=== PATIENT | male | born 1940 | race Caucasian/White ===

== ENCOUNTER 2018-05-01 11:37 | Emergency (ER) | payer MEDICARE, SELFPAY ==
[2018-05-01 11:43] VITALS: BP 187/84; PULSE 63; RESP 16; TEMP 37.1; O2SAT 97; BMI 32.8
--- NOTE | 2018-05-01 12:18 | EKG12_ITS ---
Test Reason : SOB Blood Pressure : / mmHG Vent. Rate : 065 BPM Atrial Rate : 065 BPM P-R Int : 236 ms QRS Dur : 094 ms QT Int : 420 ms P-R-T Axes : 058 -53 053 degrees QTc Int : 436 ms Sinus rhythm with 1st degree A-V block Left anterior fascicular block Abnormal ECG Confirmed by CODY MACHADO, SUKUMAR ([id number]), greeting card editor JAX MOLINA ([id number]) on 05/04/2018 10:16:56 AM Referred By: RADHA Confirmed By:SUKUMAR ROSS MD
--- NOTE | 2018-05-01 12:23 | RAD_ITS ---
STUDY: X-RAY CHEST REASON FOR EXAM: Male, 77 years old. Chest pain. TECHNIQUE: Single AP portable view of the chest. COMPARISON: Comparison is made with prior study dated October 15, 2013. FINDINGS: EKG lead tubes are seen. The lungs are clear and expanded. Scattered calcified granulomas. There is no demonstrated pleural abnormality. Normal size heart. Normal mediastinum and adne. Normal visualized pulmonary arteries. Normal visualized aortic arch and descending thoracic aorta. There are diffuse degenerative changes of the visualized thoracic spine. There is degenerative osteoarthritis of the bilateral shoulders. There is no demonstrated abnormality of the visualized soft tissue structures of the upper abdomen. RAD/Chest 1 View (Portable) IMPRESSION: No acute abnormality is seen. Electronically Signed: Abdulaziz Romero MD at 12:43 EST , Service support ,
[2018-05-01] MEDS: Aspirin 81 MG TAB.CHEW 324 MG PO (12:32)
[2018-05-01 12:41] LABS: Absolute Lymphocyte Count 0.85 X10^3/ul (0.83-4.51); Absolute Neutrophil Count 4.8 X10^3/uL (2.0-7.7); Basophil# 0.07 X10^3/uL; Basophil% 1.1 % (0-1); Eosinophil# 0.08 X10^3/uL; Eosinophils% 1.3 % (0-5); Hematocrit 45.5 % (40-54); Hemoglobin 15.3 g/dl (13.0-16.5); Lymphocyte # 0.85 X10^3/ul (4.0); Lymphocyte % 13.4 % (19-41); Mean Corp Hgb Conc 33.6 g/gl (32-36); Mean Corpuscular Hgb 36.5 pg (27.0-32.0); Mean Corpuscular Volume 108.6 fL (80-94); Mean Platelet Vol. 8.6 fl (6.2-12.0); Monocyte# 0.54 X10^3/uL; Monocyte% 8.5 % (0-10); Neutrophil # 4.78 X10^3/uL (2.7-7.7); Neutrophil % 75.5 % (47-70); POSITIVE COUNT NO; POSITIVE DIFFERENTIAL NO; POSITIVE MORPHOLOGY NO; Platelet Count 639 K/mm3 (150-450); RBC Distribution Width CV 13.6 % (11.6-14.6); RBC Distribution Width SD 53.1 fl (35.1-43.9); Red Blood Count 4.19 M/mm3 (4.6-6.2); White Blood Count 6.3 K/mm3 (4.4-11.0)
[2018-05-01 12:49] VITALS: BP 178/87; PULSE 60; RESP 18; O2SAT 100; O2SAT 99
[2018-05-01 12:59] LABS: Anion Gap 6 (5-15); BUN 22 mg/dL (7-18); BUN/Creat Ratio 21.6 RATIO (10-20); Calcium,Total 8.4 mg/dL (8.5-10.1); Chloride 107 mmol/L (98-107); Creatinine, Serum 1.02 mg/dL (0.70-1.30); EST Glomerular Filtration Rate 75 mL/min (>60); Est Glom Filt Rate - Afr Amer 91 mL/min (>60); Estimated Creatinine Clearance 63.62 ml/min; Glucose 106 mg/dL (74-106); Potassium 4.7 mmol/L (3.5-5.1); Sodium Level 140 mmol/L (136-145)
[2018-05-01 13:20] VITALS: BP 170/92; PULSE 55; RESP 18; O2SAT 97
--- NOTE | 2018-05-01 13:23 | ED.DCSUM_ITS ---
- ER Visit Summary Date of Service: 05/01/18 Chief Complaint: Rapid heart rate History of Present Illness: The patient is a 77 M who presents with a rapid heart rate. He states that this morning he had an episode that lasted about 15- 20 minutes. He took an Excedrin Migraine when he had this. He also drank multiple cups of coffee this morning which is more than usual. He denies any chest pain. No nausea. No dizziness. No history of any history of this. Physical Examination: Vital signs reviewed. HEENT exam unremarkable. Heart is regular rate and rhythm without murmurs. Lungs are clear to auscultation. Abdomen is soft and nontender. Extremities reveal no edema. Peripheral pulses are equal. Skin exam normal. Neurologic exam normal. Test Results: EKG is normal sinus rhythm with rate of 65. Left anterior fascicular block noted. Platelets 639. Troponin 0 0.027 Emergency Department Course and Treatment: The patient had no episodes of any symptoms here. I is unclear as to what these palpitations were. Patient will be discharged to follow-up with his doctor for a possible Holter monitor Treatment Plan: [] Disposition: Discharge Impression: Palpitations, resolved This note was generated with [employer]olution dictation software. It may contain incorrect words, spelling, and punctuation that were not noted in review of the chart pr ior to signing ED Disposition - Plan for ED Patient: Referrals: Sagar Kent III, MD [Primary Care Provider] -
--- NOTE | 2018-05-01 13:23 | ED.DEP ---
ED Disposition - Plan for ED Patient: Disposition: Home or Assisted Living Instructions: ED Palpitations Referrals: Sagar Kent III, MD [Primary Care Provider] -
[2018-05-01 13:31] VITALS: BP 152/87; PULSE 67; RESP 18; O2SAT 99
== END 2018-05-01 13:31 | disposition home or self-care (01) ==
PROVIDERS: Emergency Provider Emergency Medicine; Family Provider Family Medicine; PCP Family Medicine
DX: R00.2 Palpitations (principal); I44.4 Left anterior fascicular block; Z79.01 Long term (current) use of anticoagulants; Z79.899 Other long term (current) drug therapy
CPT/HCPCS: 71045; 80048; 84484; 85025; 93005; 99285

== ENCOUNTER 2019-08-07 08:16 | Emergency (ER) | payer MEDICARE, SELFPAY ==
[2019-08-07 08:19] VITALS: BP 170/84; PULSE 71; RESP 17; TEMP 36.7; O2SAT 96; BMI 32.0
--- NOTE | 2019-08-07 08:33 | CT_ITS ---
STUDY: CT ABDOMEN AND PELVIS WITHOUT CONTRAST REASON FOR EXAM: Male, 79 years old. ABD PAIN, HX KS, BLOOD IN UNDERWEAR THIS AM RADIATION DOSAGE (If Supplied By Facility): CTDIvol = ( 14.54 ) mGy, DLP = ( 713.01 ) mGycm TECHNIQUE: Transaxial images were obtained from the dome of the diaphragm to the symphysis pubis without oral contrast, and without intravenous contrast. Sagittal and coronal images were reconstructed. Individualized dose optimization techniques were used for this CT. COMPARISON: None. FINDINGS: There are bilateral groundglass opacities. The visualized portions of the heart are within normal limits. Normal liver. Normal gallbladder and extrahepatic biliary system. There is enlargement of the spleen at 14 cm Normal pancreas. Normal bilateral adrenal glands. There are calcifications of the right kidney measuring up to 4 mm at the lower pole. There are multiple calcifications of the left kidney measuring up to 5 mm at the mid pole. There is no hydronephrosis. There is a small hiatal hernia. Normal small intestine. Normal colon. The appendix is visualized and appears normal. There is diffuse atherosclerotic calcification of the abdominal aorta, without a demonstrated aneurysm. Normal inferior vena cava. Normal retroperitoneum. Normal urinary bladder. There is mild enlargement of the prostate. There is left inguinal hernia repair. Normal osseous structures. CT/Abdomen/Pelvis without Cont IMPRESSION: Bilateral groundglass opacities. Dedicated CT of the chest is recommended. Bilaterally renal stones. Splenomegaly. Mild prostate enlargement. Previous left inguinal hernia. Electronically Signed: Wally Wilson MD at 10:09 EDT Tel , Service support ,
[2019-08-07] MEDS: 0.9% Normal Saline 1,000 ML 125 ML IV (08:45)
[2019-08-07 08:55] LABS: Bacteria 0 SEEN /hpf (None Seen); Mucous, Urine 0 SEEN /hpf (<or=2+); Squamous Epithelial Cells - UA 0 SEEN /hpf (0-5); White Blood Cells 0 SEEN /hpf (0-5)
[2019-08-07 08:56] LABS: Color, Urine Yellow (Yellow); Glucose, Dipstick Normal (Normal); Ketone-Dipstick Negative (Negative); Leukocyte Esterase-Dipstick Negative /ul (Negative); Nitrite-Dipstick Negative (Negative); Occult Blood-Urine 10 /ul (Negative); Protein-Dipstick 30 mg/dl (Negative); Urine Bilirubin Dipstick Negative (Negative); Urine Clarity Clear (Clear); Urine Urobilinogen 1 mg/dl (Normal)
--- NOTE | 2019-08-07 09:02 | ED.VISSUMM ---
- ER Visit Summary Date of Service: 08/07/19 Chief Complaint: [Abdominal pain] History of Present Illness: The patient is a 79 M [presents the emergency department complaint of abdominal pain that started 3 days ago. Patient has had intermittent discomfort over the last 3 days. This morning he woke up and had some blood in his underwear that he said he came from his penis and urine. He has had some urinary frequency and dysuria. Patient complains of pain mostly in the left flank. He does have history of kidney stones. He denies any blood in his stool or black tarry stools. Patient is also had a low-grade fever up to 100.5 yesterday. Patient has history of hypothyroidism.] Physical Examination: [HEENT-PERRLA, EOMI. Cranial nerves II through XII grossly intact. TMs clear. Mucous membranes moist. No adenopathy. Cardiovascular-regular rate and rhythm without murmur or ectopy Lungs-clear to auscultation, chest wall stable without crepitus or subcu emphysema Abdomen-normoactive bowel sounds, soft, nontender, no rebound or rigidity, no peritoneal signs. Extremities-intact ?4, normal range of motion, normal pulses, atraumatic] Test Results: [CBC with differential showed a white count of 4.9, hemoglobin 14, hematocrit 43, placed 3-5. Chemistries unremarkable. Urinalysis unremarkable. Patient had a CT of the flank that showed bilateral groundglass opacities and it was recommended that we obtain a CT dedicated to the chest. I did perform a CT of the chest with IV contrast that showed again bilateral groundglass opacities worse on the right.] Emergency Department Course and Treatment: [I discussed results with patient and he does state that his son was ill 2 weeks ago with fever and cough and he had had some interaction with him. He has had a little bit of a cough. Fever started yesterday and patient denies any headache or body aches or sore throat. I discussed with [facility] who agreed to allow us to test the patient for COVID-19. Patient was started on Levaquin 750 mg p.o. in the department.] I feel patient can be treated as an outpatient as he looks well and his vital signs are stable. Treatment Plan: [Patient will be treated with Levaquin for 7 days. Patient also will be tested for COVID-19. Patient will be advised to return if increasing shortness of breath or condition worsen anyway. Patient also advised to return if worsening abdominal pain.] Disposition: [Discharged home in stable condition] Impression: [Abdominal pain-etiology uncertain Bilateral pneumonia-viral versus bacterial] This note was generated with [employer] dictation software. It may contain incorrect words, spelling, and punctuation that were not noted in review of the chart prior to signing ED Disposition - Plan for ED Patient: Referrals: Sagar Kent III, MD [Primary Care Provider] -
[2019-08-07 09:03] LABS: Red Blood Cells-Urine 0-5 SEEN /hpf (0-5)
[2019-08-07 09:05] LABS: Absolute Neutrophil Count 4.1 X10^3/uL (2.0-7.7); Basophil# 0.02 X10^3/uL; Basophil% 0.4 % (0-1); Eosinophil# 0.02 X10^3/uL; Eosinophils% 0.4 % (0-5); Hemoglobin 14.5 g/dL (13.0-16.5); Lymphocyte % 8.2 % (19-41); Mean Corp Hgb Conc 33.7 g/dL (32-36); Mean Corpuscular Hgb 34.9 pg (27.0-32.0); Mean Corpuscular Volume 103.6 fL (80-94); Mean Platelet Vol. 8.7 fl (6.2-12.0); Monocyte# 0.34 X10^3/uL; NRBC Flagged by Analyzer 0 % (0-5); Neutrophil # 4.06 X10^3/uL (2.7-7.7); Neutrophil % 83.4 % (47-70); POSITIVE DIFFERENTIAL YES; Platelet Count 385 K/mm3 (150-450); RBC Distribution Width CV 14.7 % (11.6-14.6); RBC Distribution Width SD 55.8 fl (35.1-43.9); Red Blood Count 4.15 M/mm3 (4.6-6.2); White Blood Count 4.9 K/mm3 (4.4-11.0)
[2019-08-07 09:06] LABS: Differential Indicated SCAN CRITERIA MET
[2019-08-07 09:09] LABS: Anion Gap 5 (5-15); BUN 20 mg/dL (7-18); BUN/Creat Ratio 18.2 RATIO (10-20); Calcium,Total 8.5 mg/dL (8.5-10.1); Chloride 107 mmol/L (98-107); EST Glomerular Filtration Rate 69 mL/min (>60); Est Glom Filt Rate - Afr Amer 83 mL/min (>60); Estimated Creatinine Clearance 57.15 ml/min; Glucose 115 mg/dL (74-106); Sodium Level 137 mmol/L (136-145)
[2019-08-07 09:33] LABS: Differential Comment SCANNED
[2019-08-07 10:18] VITALS: BP 200/72; PULSE 58; RESP 18; O2SAT 98
--- NOTE | 2019-08-07 10:18 | CT_ITS ---
STUDY: CTA CHEST REASON FOR EXAM: Male, 79 years old. BILAT PNEUMONIA, COUGH RADIATION DOSAGE (If Supplied By Facility): CTDIvol = ( 15.03 ) mGy, DLP = ( 568.75 ) mGycm TECHNIQUE: The examination was performed with the intravenous administration of IV 100mL Isovue-370. Post-processing of the angiographic images was performed, with multiplanar reformation and 3D reconstruction. Individualized dose optimization techniques were used for this CT. COMPARISON: None. FINDINGS: Suboptimal opacification of the main pulmonary artery and right and left pulmonary arteries. Suboptimal opacification of the bilateral peripheral pulmonary arteries. There is no demonstrated pulmonary embolism. Normal thoracic aorta and visualized great vessels. There is no demonstrated aortic dissection. Normal heart and pericardium. Normal mediastinum. Granulomas calcifications at the right hilar region. Normal visualized trachea and bronchi. The lungs are well expanded. Bilateral patchy groundglass densities and infiltrates, more significant in the right lower lobe. Normal pleura. Normal chest wall structures. Degenerative changes at the shoulders. Degenerative vertebral changes. Small hiatal hernia. Possible nonobstructive renal calculi bilaterally. CT/CTA Chest W/WO Contrast IMPRESSION: No demonstrated pulmonary embolism or arterial dissection. Bilateral patchy groundglass densities and infiltrates, more significant in the right lower lobe. Probable nonobstructing renal calculi bilaterally. Small hiatal hernia. Electronically Signed: Mook Hi DO at 11:50 EDT Tel [phone], Service support ,
--- NOTE | 2019-08-07 12:38 | DCINST.ED_ITS ---
ED Disposition - Plan for ED Patient: Instructions: ED Unknown Causes of Abdominal Pain Male, ED URI Viral Prescriptions: Levofloxacin [Levaquin] 750 mg PO DAILY #7 tab Transmission Status: Pending to [id number] Referrals: Sagar Kent III, MD [Primary Care Provider] - Darrin Godinez MD [STAFF PHYSICIAN] - 5-7 Days
[2019-08-07] MEDS: levoFLOXacin 750 MG Tablet PO (12:52)
[2019-08-07] MEDS: Contrast Allergy Safety Check IV (12:53)
[2019-08-07 12:54] VITALS: BP 200/78; PULSE 65; RESP 18; O2SAT 98
--- NOTE | 2019-08-08 12:30 | ED.RN ---
PATIENT CALLED AND MADE AWARE THAT HE IS COVID-19 POSITIVE. PATIENT QUESTIONS ANSWERED. MADE AWARE THAT HE SHOULD RETURN TO ED IF HE HAS INCREASED SHORTNESS OF BREATH.
== END 2019-08-07 13:07 | disposition home or self-care (01) ==
PROVIDERS: Emergency Provider Emergency Medicine; PCP Family Medicine
DX: U07.1 COVID-19 (principal); J12.89 Other viral pneumonia; E03.9 Hypothyroidism, unspecified; Z87.442 Personal history of urinary calculi; R10.9 Unspecified abdominal pain
CPT/HCPCS: 71275; 74176; 80048; 81001; 85025; 87635; 96360; 96361; 99285; G2023; J7030; Q9967; U0002; U0004

== ENCOUNTER 2019-08-12 21:13 | Inpatient (IN) | payer MEDICARE, SELFPAY ==
[2019-08-12 21:15] VITALS: BP 162/73; PULSE 84; RESP 34; TEMP 37.6; O2SAT 82; BMI 32.1
[2019-08-12 21:20] VITALS: O2SAT 91
[2019-08-12 21:27] VITALS: PULSE 81; RESP 30; O2SAT 93
[2019-08-12 22:20] VITALS: BP 130/62; PULSE 71; RESP 21; TEMP 37.7; O2SAT 94
--- NOTE | 2019-08-12 22:40 | EKG12_ITS ---
Test Reason : DYSRHYTHMIA Blood Pressure : / mmHG Vent. Rate : 085 BPM Atrial Rate : 085 BPM P-R Int : 230 ms QRS Dur : 096 ms QT Int : 364 ms P-R-T Axes : 044 -49 042 degrees QTc Int : 433 ms Sinus rhythm with 1st degree A-V block Left anterior fascicular block Left ventricular hypertrophy Abnormal ECG Confirmed by CODY MACHADO, SUKUMAR ([id number]), commissioning editor JAX MOLINA ([id number]) on 08/17/2019 3:23:44 PM Referred By: MARILOU Confirmed By:SUKUMAR ROSS MD
--- NOTE | 2019-08-12 22:43 | ED.VISSUMM ---
- ER Visit Summary Date of Service: 08/12/19 Chief Complaint: Shortness of breath History of Present Illness: The patient is a 79 M who presents with shortness of breath that began today. Patient states it is gradually gotten worse throughout the day today. Patient states he tested positive for COVID-19 5 days ago. Patient states he was doing well until today. Patient states his breathing was worse with any exertion and improves with rest. Patient admits to a fever of 103 at home. Patient admits to a cough but denies any sputum production. Patient denies any chest pain. Patient denies any nausea or vomiting. Patient denies any dysuria or hematuria but admits to urinary frequency. Physical Examination: All signs are stable. Patient is afebrile. Patient is in no acute distress. Oral mucosa is pink and moist. Neck is supple. Trachea is midline. There is no JVD. Heart was regular rate and rhythm. Lungs are diminished bilaterally. There is adequate respiratory effort. Abdomen is soft. Bowel sounds are normal. There is no tenderness. Cranial nerves II through XII are intact. There are no focal motor or sensory deficits noted. Extremities are intact. There is no calf tenderness or edema. Test Results: EKG showed a sinus rhythm with a rate of 85. There is a left anterior fascicular block. There are no acute ST or T wave changes. Portable chest x-ray shows bilateral infiltrates. This was interpreted by the radiologist and myself. CBC shows normal white blood cell count. Platelets were slightly elevated at 523. Comprehensive metabolic profile showed a slightly elevated BUN of 26. INR was normal at 1.5. PTT was 44.5. Troponin was normal. Lactate was normal. Procalcitonin was normal. Emergency Department Course and Treatment: Patient was maintained on oxygen here in the emergency department. Patient's oxygen requirements continued to increase and is on 6 L nasal cannula at the present time. Patient was given albuterol inhaler 4 puffs. Patient was started on Rocephin and Zithromax. Case was discussed with the hospitalist. He will admit the patient to the ICU to his service. Patient understood and was agreeable with the plan. All questions were answered. Disposition: Admit to hospital Impression: 1. Pneumonia 2. Hypoxia 3. COVID-19 This note was generated with [employer]LR [employer] Solutionsation software. It may contain incorrect words, spelling, and punctuation that were not noted in review of the chart prior to signing ED Disposition - Plan for ED Patient: Disposition: Acute Care Hospital [facility] Diagnosis: Pneumonia, Hypoxia, COVID-19
--- NOTE | 2019-08-12 22:50 | RAD_ITS ---
STUDY: X-RAY CHEST REASON FOR EXAM: Male, 79 years old. Positive COVID test friday with increased SOB this week. TECHNIQUE: Single AP portable view of the chest. COMPARISON: 05/01/2018, and CT of the chest 08/07/2019. FINDINGS: Normal lung volumes. Moderate, increasing, widespread pulmonary infiltrates mid and lower lung carroll bilaterally, consistent with nonspecific multifocal pneumonia. No gross effusions. Normal size heart. Normal mediastinum and dane. Normal visualized pulmonary arteries. Normal visualized aortic arch and descending thoracic aorta. There are diffuse degenerative changes of the visualized thoracic spine. There is degenerative osteoarthritis of the bilateral shoulders. There is no demonstrated abnormality of the visualized soft tissue structures of the upper abdomen. RAD/Chest 1 View (Portable) IMPRESSION: Worsening of bilateral pulmonary infiltrates consistent with nonspecific multifocal pneumonia. Electronically Signed: Eriberto Smalls MD at 23:13 EDT , Service support ,
[2019-08-12 22:51] LABS: Absolute Lymphocyte Count 0.24 X10^3/uL (0.83-4.51); Absolute Neutrophil Count 5.9 X10^3/uL (2.0-7.7); Basophil# 0.02 X10^3/uL; Basophil% 0.3 % (0-1); Eosinophil# 0.01 X10^3/uL; Eosinophils% 0.2 % (0-5); Hematocrit 40.2 % (40-54); Hemoglobin 13.6 g/dL (13.0-16.5); Lymphocyte # 0.24 X10^3/ul (4.0); Lymphocyte % 3.7 % (19-41); Mean Corp Hgb Conc 33.8 g/dL (32-36); Mean Corpuscular Hgb 34.5 pg (27.0-32.0); Mean Platelet Vol. 9.2 fl (6.2-12.0); Monocyte# 0.22 X10^3/uL; Monocyte% 3.4 % (0-10); NRBC Flagged by Analyzer 0 % (0-5); Neutrophil # 5.92 X10^3/uL (2.7-7.7); Neutrophil % 91.9 % (47-70); POSITIVE DIFFERENTIAL YES; Platelet Count 523 K/mm3 (150-450); RBC Distribution Width CV 14.5 % (11.6-14.6); RBC Distribution Width SD 54.8 fl (35.1-43.9); Red Blood Count 3.94 M/mm3 (4.6-6.2); White Blood Count 6.4 K/mm3 (4.4-11.0)
[2019-08-12 22:53] LABS: Differential Indicated SCAN CRITERIA MET
[2019-08-12 23:00] VITALS: BP 156/76; PULSE 84; RESP 32; TEMP 37.4; O2SAT 92
[2019-08-12 23:11] LABS: Anisocytosis 1+; Platelet Estimate MOD INC (ADEQ); Red Cell Morphology N CHROM NORMAL (NORM C&C)
[2019-08-12 23:12] LABS: Macrocytosis 1+
[2019-08-12 23:13] VITALS: BP 162/77; PULSE 91; RESP 26; TEMP 37.5; O2SAT 91
[2019-08-12 23:19] LABS: ALB/GLOB Ratio 0.8 RATIO (0.9-2.4); AST(SGOT) 56 U/L (15-37); Alanine Aminotransfer ALT/SGPT 48 U/L (16-61); Albumin, Serum 2.9 g/dL (3.2-5.0); Alkaline Phosphatase 63 U/L (45-117); Anion Gap 8 (5-15); BUN 26 mg/dL (7-18); BUN/Creat Ratio 21.5 RATIO (10-20); Chloride 102 mmol/L (98-107); Creatinine, Serum 1.21 mg/dL (0.70-1.30); EST Glomerular Filtration Rate 62 mL/min (>60); Est Glom Filt Rate - Afr Amer 75 mL/min (>60); Estimated Creatinine Clearance 51.95 ml/min; Globulin 3.7 g/dL (2.2-4.2); Glucose 142 mg/dL (74-106); Potassium 4.1 mmol/L (3.5-5.1); Protein, Total 6.6 g/dL (6.4-8.2); Sodium Level 132 mmol/L (136-145)
[2019-08-12 23:20] LABS: Lactic Acid 1.7 mmol/L (0.4-1.9)
[2019-08-12] MEDS: LORazepam 2 MG/ML Syringe 0.5 MG IV (23:21)
[2019-08-12 23:27] LABS: Procalcitonin 0.08 ng/mL (0.00-0.09)
[2019-08-12 23:29] LABS: International Normalized Ratio 1.5; Prothrombin Time (Protime)PT. 17.5 SECONDS (11.7-14.9)
[2019-08-12 23:30] LABS: Partial Thromboplast Time 44.5 Seconds (24.1-36.2)
--- NOTE | 2019-08-12 23:30 | CPS ---
[2305] Pt. instructed how to use inhaler w/ space chamber. Pt. took 4 puffs (90mcg each) fine, and he had no questions regarding the use of the space chamber and inhaler.
[2019-08-12 23:35] LABS: Mucous, Urine 0 SEEN /hpf (<or=2+)
[2019-08-12 23:41] LABS: Color, Urine Yellow (Yellow); Glucose, Dipstick Normal (Normal); Ketone-Dipstick 5 mg/dl (Negative); Leukocyte Esterase-Dipstick 25 /ul (Negative); Nitrite-Dipstick Negative (Negative); Occult Blood-Urine 25 /ul (Negative); Protein-Dipstick 100 mg/dl (Negative); Urine Bilirubin Dipstick Negative (Negative); Urine Clarity Clear (Clear); Urine Urobilinogen 1 mg/dl (Normal)
[2019-08-12 23:42] LABS: CPK Total, Creatine Kinase 106 U/L (39-308)
[2019-08-13] VITALS (42 sets, daily range): BP systolic 94–163; BP diastolic 52–98; PULSE 58–85; RESP 12–45; TEMP 36.3–37.9; O2SAT 88–97; BMI 31.1
[2019-08-13 00:05] LABS: Bacteria 1+ /hpf (None Seen); Squamous Epithelial Cells - UA 0-5 SEEN /hpf (0-5); White Blood Cells 0-5 SEEN /hpf (0-5)
[2019-08-13 00:06] LABS: Hyaline Cast 0-5 SEEN /lpf (0-5)
[2019-08-13 00:07] LABS: Red Blood Cells-Urine 0-5 SEEN /hpf (0-5)
[2019-08-13] MEDS: Acetaminophen 325 MG Tablet 650 MG PO ×5 (00:15→21:41)
--- NOTE | 2019-08-13 00:47 | HP.PCM_ITS ---
Problem List (1) Pneumonia Status: Acute (2) Hypoxia Status: Acute (3) COVID-19 Status: Acute (4) SARS-associated coronavirus infection Status: Acute History of Present Illness Date of Admission: 08/13/19 Chief Complaint: SOB The patient is a 79 year old M with a significant history of hypertension; and hypothyroidism who presents emergency department with shortness of breath. Shortness of breath started on the same day of presentation. Patient was diagnosed with COVID-19 infection 5 days ago but developed shortness of breath on same day of presentation. Associated for symptoms is productive cough of rodriguez sputum; fever and chills. At emergency department patient was severely hypoxic and required 6 L of nasal cannula oxygen. The patient is a 79 year old M with a significant history of hypertension; and hypothyroidism who presents emergency department with shortness of breath. Shortness of breath started on the same day of presentation. Patient was diagnosed with COVID-19 infection 5 days ago but developed shortness of breath on same day of presentation. Associated for symptoms is productive cough of rodriguez sputum; fever and chills. At emergency department patient was severely hypoxic and required 6 L of nasal cannula oxygen. Report that his symptoms started about a week ago with abdominal pain. Imaging of his abdomen was unremarkable. However chest x-ray pointed toward a covid infection. Past Medical History Medical History: Medical History (Last Reviewed 08/13/19 @ 01:[address] Matt Espinoza MD) Seizures R56.9 Allergies No Known Allergies Allergy (Verified 08/12/19 21:15) Home Medications: Ambulatory Orders Medication Instructions Recorded Phenytoin Na [Dilantin] 200 mg PO DAILY 10/15/13 Levofloxacin [Levaquin] 750 mg PO DAILY #7 tab 08/07/19 Hydroxyurea [Hydrea] 1,000 mg PO DAILY 08/12/19 Levothyroxine [Synthroid] 100 mcg PO DAILY 08/12/19 Lisinopril [Prinivil] 5 mg PO DAILY 08/12/19 Surgical History: - - Kidney stone retrieval Smoking Status: Never smoker - *Family History Maternal History Items: - - Mother had migraine headache; and multiple removal of abdominal tumors. Paternal History Items: Dementia Review of Systems Constitutional: Reports: Chills, Fever. Denies: Weight Change HEENT: Denies: Head Aches, Sinus Congestion, Sinus Drainage Cardiovascular: Denies: Chest Pain, Palpitations Respiratory: Reports: Cough, Shortness of Breath, Sputum production. Denies: Shortness of breath at rest Gastrointestinal: Denies: Abdominal Pain, Nausea, Vomiting Genitourinary: Reports: Frequency - increase frequency. Denies: Dysuria Musculoskeletal: Denies: Joint Pain, Joint Tenderness Skin: Denies: Rash, Wounds Neurological: Denies: Numbness, Tingling, Focal weakness Psychiatric: Denies: Anxiety, Depression, Homicidal Ideations, Suicidal Ideations Hematologic/ Lymphatic: Denies: Easy Bruising, Easy Bleeding VTE Information - Inpt Only VTE Present on Admission: No VTE Mechan Device Prophylaxis: None VTE Pharm Prophylaxis ordered?: Yes Patient Problems: Active and Suspected Problems (Last Reviewed 08/13/19 @ 01:[address] Matt Espinoza MD) Pneumonia (Acute) Hypoxia (Acute) COVID-19 (Acute) SARS-associated coronavirus infection (Acute) - Physical Exam Vitals/I&O's: Vital Signs Temp Pulse Resp BP Pulse Ox 100.3 F H 85 21 H 132/67 H 93 08/13/19 00:00 08/13/19 00:00 08/13/19 00:00 08/13/19 00:00 08/13/19 00:00 Oxygen Flow Rate (L/min) 6 Oxygen Delivery Method Nasal Cannula Weight: 101.4 kg Body Mass Index (BMI) 32.1 Intake and Output for Last 24 Hours 08/11/19 08/12/19 08/13/19 23:59 23:59 23:59 Intake Total 50 / 50 Balance 50 / 50 General: Alert, Oriented x3, Cooperative HEENT: Atraumatic, PERRLA, EOMI, Normocephalic Neck: Supple, No JVD, Negative Carotid Bruits Lungs: Rales, Tachypneic Cardiovascular: Regular rate, Normal S1, Normal S2, No murmurs Abdomen: Bowel Sounds Present, Soft, Non Tender Extremities: No edema, Capillary Refill Less than 3 Seconds Skin: No rashes, No breakdown Musculoskeletal: No Tenderness to Palpation of Joints or Extremities Neurological: Cranial nerves II-XII grossly intact Psych/Mental Status: Normal Affect, Appropriate Laboratory Results 08/12/19 21:34: Sodium 132 L, Potassium 4.1, Chloride 102, Carbon Dioxide 22.0, Anion Gap 8, BUN 26 H, Creatinine 1.21, Estim Creat Clear Calc 51.95, Est GFR (MDRD) Af Amer 75, Est GFR (MDRD) Non-Af 62, BUN/Creatinine Ratio 21.5 H, Glucose 142 H, Calcium 8.0 L, Total Bilirubin 0.50, AST 56 H, ALT 48, Alkaline Phosphatase 63, Troponin I < 0.015, Total Protein 6.6, Albumin 2.9 L, Globulin 3.7, Albumin/Globulin Ratio 0.8 L 08/12/19 21:34: Procalcitonin 0.08 08/12/19 21:34: WBC 6.4, RBC 3.94 L, Hgb 13.6, Hct 40.2, MCV 102.0 H, MCH 34.5 H , MCHC 33.8, RDW Std Deviation 54.8 H, RDW Coeff of Nacho 14.5, Plt Count 523 H, MPV 9.2, Immature Gran % (Auto) 0.500, Neut % (Auto) 91.9 H, Lymph % (Auto) 3.7 L, [place] % (Auto) 3.4, Eos % (Auto) 0.2, Baso % (Auto) 0.3, Absolute Neuts (auto) 5.9, Absolute Lymphs (auto) 0.24 L, Nucleated RBC % 0, Differential Comment SEE COMMENT, Platelet Estimate MOD INC, RBC Morphology N CHROM, Anisocytosis 1+, Macrocytosis 1+ 08/12/19 21:34: Lactic Acid 1.7 08/12/19 21:34: Total Creatine Kinase 106 08/12/19 21:34: PT 17.5 H, INR 1.5, APTT 44.5 H 08/12/19 23:00: Urine Color Yellow, Urine Clarity Clear, Urine pH 5.0, Ur Specific Dixie 1.020, Urine Protein 100 H, Urine Glucose (UA) Normal, Urine Ketones 5 H, Urine Occult Blood 25 H, Urine Nitrite Negative, Urine Bilirubin Negative, Urine Urobilinogen 1 H, Ur Leukocyte Esterase 25 H, Urine RBC 0-5 SEEN, Urine WBC 0-5 SEEN, Ur Squamous Epith Cells 0-5 SEEN, Urine Bacteria 1+, H yaline Casts 0-5 SEEN, Urine Mucus 0 SEEN Assessment/Plan All Active Problems (Last Reviewed 08/13/19 @ 01:[address] Matt Espinoza MD) Pneumonia (Acute) Hypoxia (Acute) COVID-19 (Acute) SARS-associated coronavirus infection (Acute) The patient is a 79 year old M with a significant history of hypertension; and hypothyroidism who presents emergency department with shortness of breath; and hypoxia and referral an outpatient test remarkable for positive COVID-19 infection consistent with severe acute respiratory syndrome secondary to COVID- 19 infection. severe acute respiratory syndrome secondary to COVID-19 infection. Will admit patient to intensive care unit. Patient was started on Levaquin outpatient. At the emergency department he received ceftriaxone and azithromycin. Procalcitonin is negative. However will continue patient on ceftriaxone and azithromycin for now. All other test to assess severity of illness: D-dimer, ferritin ordered. Will place on CPAP. Strep pneumonia and Legionella urine antigen ordered. Tylenol PRN for fever. Hand Violin Maker consult. Hypertension On presentation blood pressure was not within goal. Home lisinopril continued. DVT prophylaxis We will put on Lovenox 40 mg twice daily. Inpatient E&M: 82005 Init Hosp L3
[2019-08-13] MEDS: Enoxaparin 40 MG/0.4 ML Syringe SC (02:03)
[2019-08-13] MEDS: guaiFENesin 1,200 MG Tablet 1200 MG PO ×3 (02:04→21:42)
[2019-08-13 05:13] LABS: Absolute Lymphocyte Count 0.22 X10^3/uL (0.83-4.51); Basophil# 0.01 X10^3/uL; Basophil% 0.1 % (0-1); Eosinophil# 0.01 X10^3/uL; Eosinophils% 0.1 % (0-5); Hematocrit 38.1 % (40-54); Hemoglobin 13.1 g/dL (13.0-16.5); Lymphocyte # 0.22 X10^3/ul (4.0); Lymphocyte % 2.9 % (19-41); Mean Corp Hgb Conc 34.4 g/dL (32-36); Mean Corpuscular Hgb 34.6 pg (27.0-32.0); Mean Corpuscular Volume 100.5 fL (80-94); Mean Platelet Vol. 9.2 fl (6.2-12.0); Monocyte# 0.17 X10^3/uL; Monocyte% 2.3 % (0-10); NRBC Flagged by Analyzer 0 % (0-5); Neutrophil # 7.02 X10^3/uL (2.7-7.7); Neutrophil % 94.2 % (47-70); POSITIVE DIFFERENTIAL YES; Platelet Count 455 K/mm3 (150-450); RBC Distribution Width CV 14.4 % (11.6-14.6); RBC Distribution Width SD 53.2 fl (35.1-43.9); Red Blood Count 3.79 M/mm3 (4.6-6.2); White Blood Count 7.5 K/mm3 (4.4-11.0)
[2019-08-13 05:16] LABS: Differential Indicated SCAN CRITERIA MET
[2019-08-13 05:31] LABS: Anion Gap 7 (5-15); BUN 26 mg/dL (7-18); Calcium,Total 7.8 mg/dL (8.5-10.1); Chloride 101 mmol/L (98-107); Creatinine, Serum 1.18 mg/dL (0.70-1.30); EST Glomerular Filtration Rate 63 mL/min (>60); Est Glom Filt Rate - Afr Amer 77 mL/min (>60); Estimated Creatinine Clearance 53.27 ml/min; Ferritin 1156 ng/mL (26-388); Glucose 128 mg/dL (74-106); Potassium 4.1 mmol/L (3.5-5.1); Sodium Level 132 mmol/L (136-145)
[2019-08-13 05:34] LABS: D-Dimer Quantitative (DVT/PE) 1.57 FEU/ug/m (0.27-0.49)
[2019-08-13 05:47] LABS: Differential Comment SCANNED
--- NOTE | 2019-08-13 06:20 | PCM.CON.CC ---
Reason for Consult Date of Consultation: 08/13/19 Reason for Consultation: Acute hypoxemic respiratory failure History of Present Illness: The patient is a 79-year-old male, with a history as outlined below, who presented to the emergency department on August 11 with worsening shortness of breath. The patient also admitted to a high-grade fever of 103 ?F at home. He does report the presence of a nonproductive cough. The patient was evaluated in the emergency department on August 06 with complaints of abdominal pain and low-grade fevers. CT abdomen at that time revealed bilateral renal stones. A CTA chest was also obtained with suboptimal opacification of the bilateral pulmonary arteries. No significant PE was identified. However, bilateral groundglass changes were already present, most pronounced in the right lower lobe. The case was discussed with the [facility] who proceeded with testing the patient for COVID-19. The patient was discharged home with a 7-day prescription for Levaquin. His coronavirus testing was subsequently found to be positive. On presentation to the emergency department, the patient was noted to be tachypneic and hypoxemic. Laboratory evaluation revealed no evidence of a leukocytosis. Platelet count was elevated to 523,000. PT and PTT were increased. D-dimer was elevated to 1.57. Chemistry profile was largely unremarkable. Lactate was within normal limits. Troponin was negative and pro calcitonin was also only noted to be 0.08. Plain film chest x-ray revealed worsening bilateral pulmonary infiltrates. The patient was subsequently placed on antimicrobial therapy and admitted to the medical intensive care unit for further management. Past Medical History Medical History: Medical History (Last Reviewed 08/13/19 @ 01:[address] Matt Espinoza MD) Seizures R56.9 Allergies No Known Allergies Allergy (Verified 08/12/19 21:15) Home Medications: Ambulatory Orders Medication Instructions Recorded Phenytoin Na [Dilantin] 200 mg PO DAILY 10/15/13 Levofloxacin [Levaquin] 750 mg PO DAILY #7 tab 08/07/19 Hydroxyurea [Hydrea] 1,000 mg PO DAILY 08/12/19 Levothyroxine [Synthroid] 100 mcg PO DAILY 08/12/19 Lisinopril [Prinivil] 5 mg PO DAILY 08/12/19 Surgical History: - - Kidney stone retrieval Smoking Status: Never smoker - *Family History Maternal History Items: - - Mother had migraine headache; and multiple removal of abdominal tumors. Paternal History Items: Dementia Review of Systems Constitutional: Reports: Fever Eyes: Denies: Blurred vision, Double vision HEENT: Denies: Head Aches, Sinus Congestion, Sinus Drainage Cardiovascular: Denies: Chest Pain, Palpitations Respiratory: Reports: Cough, Shortness of Breath. Denies: Sputum production Gastrointestinal: Denies: Abdominal Pain, Nausea, Vomiting Genitourinary: Denies: Dysuria, Hematuria Musculoskeletal: Denies: Joint Pain, Joint Tenderness Skin: Denies: Rash, Wounds Neurological: Denies: Numbness, Tingling, Focal weakness Psychiatric: Denies: Anxiety, Depression, Homicidal Ideations, Suicidal Ideations Hematologic/ Lymphatic: Denies: Easy Bruising, Easy Bleeding Patient Problems: Active and Suspected Problems (Last Reviewed 08/13/19 @ 01:[address] Matt Espinoza MD) Pneumonia (Acute) Hypoxia (Acute) COVID-19 (Acute) SARS-associated coronavirus infection (Acute) Objective: The patient's most recent lab work, culture data and imaging studies have all been personally reviewed. Strep and urine Legionella antigens were negative. Sputum and blood cultures are pending. - Physical Exam Vitals/I&O's: Vital Signs Temp Pulse Resp BP Pulse Ox 98.5 F 64 34 H 140/65 H 91 08/13/19 05:00 08/13/19 06:00 08/13/19 06:00 08/13/19 06:00 08/13/19 06:00 Oxygen Flow Rate (L/min) 60 Oxygen Delivery Method CPAP Weight: 217 lb 2.485 oz Body Mass Index (BMI) 31.1 Intake and Output for Last 24 Hours 08/11/19 08/12/19 08/13/19 23:59 23:59 23:59 Intake Total 50 / 50 375 / 375 Output Total 150 / 150 Balance 50 / 50 225 / 225 General: Alert, Cooperative, - - Airvo heated high flow cannula in place. HEENT: Atraumatic, PERRLA, Normocephalic Oral: No Gingival or Mucosal Lesions/ Ulcerations Neck: Supple, No Nodes, Trachea Midline Lungs: Diminished, Tachypneic, - - Mild crackles present Cardiovascular: Regular rate, Regular Rhythm, Normal S1, Normal S2, No murmurs Abdomen: Bowel Sounds Present, Soft, Non Tender, Obese Extremities: No clubbing, No cyanosis, No edema Skin: No breakdown Musculoskeletal: No Tenderness to Palpation of Joints or Extremities Lymphatic: No Cervical, Supraclavicular, or Inguinal Adenopathy Neurological: Cranial nerves II-XII grossly intact, Neuro grossly intact Psych/Mental Status: Alert and oriented to time, place, person, mood and affect Labs (Last 48 Hours) 08/12/19 08/12/19 08/12/19 21:34 21:34 21:34 WBC 6.4 RBC 3.94 L Hgb 13.6 Hct 40.2 MCV 102.0 H MCH 34.5 H MCHC 33.8 RDW Std Deviation 54.8 H RDW Coeff of Nacho 14.5 Plt Count 523 H MPV 9.2 Immature Gran % (Auto) 0.500 Neut % (Auto) 91.9 H Lymph % (Auto) 3.7 L Scurry % (Auto) 3.4 Eos % (Auto) 0.2 Baso % (Auto) 0.3 Absolute Neuts (auto) 5.9 Absolute Lymphs (auto) 0.24 L Nucleated RBC % 0 Differential Comment SEE COMMENT Platelet Estimate MOD INC RBC Morphology N CHROM Anisocytosis 1+ Macrocytosis 1+ PT INR APTT D-Dimer Quant (PE/DVT) Sodium 132 L Potassium 4.1 Chloride 102 Carbon Dioxide 22.0 Anion Gap 8 BUN 26 H Creatinine 1.21 Estim Creat Clear Calc 51.95 Est GFR (MDRD) Af Amer 75 Est GFR (MDRD) Non-Af 62 BUN/Creatinine Ratio 21.5 H Glucose 142 H Lactic Acid Calcium 8.0 L Ferritin Total Bilirubin 0.50 AST 56 H ALT 48 Alkaline Phosphatase 63 Total Creatine Kinase Troponin I < 0.015 Total Protein 6.6 Albumin 2.9 L Globulin 3.7 Albumin/Globulin Ratio 0.8 L Procalcitonin 0.08 Urine Color Urine Clarity Urine pH Ur Specific [place] Urine Protein Urine Glucose (UA) Urine Ketones Urine Occult Blood Urine Nitrite Urine Bilirubin Urine Urobilinogen Ur Leukocyte Esterase Urine RBC Urine WBC Ur Squamous Epith Cells Urine Bacteria Hyaline Casts Urine Mucus 08/12/19 08/12/19 08/12/19 21:34 21:34 21:34 WBC RBC Hgb Hct MCV MCH MCHC RDW Std Deviation RDW Coeff of Nacho Plt Count MPV Immature Gran % (Auto) Neut % (Auto) Lymph % (Auto) Scurry % (Auto) Eos % (Auto) Baso % (Auto) Absolute Neuts (auto) Absolute Lymphs (auto) Nucleated RBC % Differential Comment Platelet Estimate RBC Morphology Anisocytosis Macrocytosis PT 17.5 H INR 1.5 APTT 44.5 H D-Dimer Quant (PE/DVT) Sodium Potassium Chloride Carbon Dioxide Anion Gap BUN Creatinine Estim Creat Clear Calc Est GFR (MDRD) Af Amer Est GFR (MDRD) Non-Af BUN/Creatinine Ratio Glucose Lactic Acid 1.7 Calcium Ferritin Total Bilirubin AST ALT Alkaline Phosphatase Total Creatine Kinase 106 Troponin I Total Protein Albumin Globulin Albumin/Globulin Ratio Procalcitonin Urine Color Urine Clarity Urine pH Ur Specific [place] Urine Protein Urine Glucose (UA) Urine Ketones Urine Occult Blood Urine Nitrite Urine Bilirubin Urine Urobilinogen Ur Leukocyte Esterase Urine RBC Urine WBC Ur Squamous Epith Cells Urine Bacteria Hyaline Casts Urine Mucus 08/12/19 08/13/19 08/13/19 23:00 05:05 05:05 WBC 7.5 RBC 3.79 L Hgb 13.1 Hct 38.1 L MCV 100.5 H MCH 34.6 H MCHC 34.4 RDW Std Deviation 53.2 H RDW Coeff of Nacho 14.4 Plt Count 455 H MPV 9.2 Immature Gran % (Auto) 0.400 Neut % (Auto) 94.2 H Lymph % (Auto) 2.9 L Scurry % (Auto) 2.3 Eos % (Auto) 0.1 Baso % (Auto) 0.1 Absolute Neuts (auto) 7.0 Absolute Lymphs (auto) 0.22 L Nucleated RBC % 0 Differential Comment SCANNED Platelet Estimate RBC Morphology Anisocytosis Macrocytosis PT INR APTT D-Dimer Quant (PE/DVT) 1.57 H* Sodium Potassium Chloride Carbon Dioxide Anion Gap BUN Creatinine Estim Creat Clear Calc Est GFR (MDRD) Af Amer Est GFR (MDRD) Non-Af BUN/Creatinine Ratio Glucose Lactic Acid Calcium Ferritin Total Bilirubin AST ALT Alkaline Phosphatase Total Creatine Kinase Troponin I Total Protein Albumin Globulin Albumin/Globulin Ratio Procalcitonin Urine Color Yellow Urine Clarity Clear Urine pH 5.0 Ur Specific [place] 1.020 Urine Protein 100 H Urine Glucose (UA) Normal Urine Ketones 5 H Urine Occult Blood 25 H Urine Nitrite Negative Urine Bilirubin Negative Urine Urobilinogen 1 H Ur Leukocyte Esterase 25 H Urine RBC 0-5 SEEN Urine WBC 0-5 SEEN Ur Squamous Epith Cells 0-5 SEEN Urine Bacteria 1+ Hyaline Casts 0-5 SEEN Urine Mucus 0 SEEN 08/13/19 05:05 WBC RBC Hgb Hct MCV MCH MCHC RDW Std Deviation RDW Coeff of Nacho Plt Count MPV Immature Gran % (Auto) Neut % (Auto) Lymph % (Auto) Scurry % (Auto) Eos % (Auto) Baso % (Auto) Absolute Neuts (auto) Absolute Lymphs (auto) Nucleated RBC % Differential Comment Platelet Estimate RBC Morphology Anisocytosis Macrocytosis PT INR APTT D-Dimer Quant (PE/DVT) Sodium 132 L Potassium 4.1 Chloride 101 Carbon Dioxide 24.0 Anion Gap 7 BUN 26 H Creatinine 1.18 Estim Creat Clear Calc 53.27 Est GFR (MDRD) Af Amer 77 Est GFR (MDRD) Non-Af 63 BUN/Creatinine Ratio 22.0 H Glucose 128 H Lactic Acid Calcium 7.8 L Ferritin 1156 H Total Bilirubin AST ALT Alkaline Phosphatase Total Creatine Kinase Troponin I Total Protein Albumin Globulin Albumin/Globulin Ratio Procalcitonin Urine Color Urine Clarity Urine pH Ur Specific [place] Urine Protein Urine Glucose (UA) Urine Ketones Urine Occult Blood Urine Nitrite Urine Bilirubin Urine Urobilinogen Ur Leukocyte Esterase Urine RBC Urine WBC Ur Squamous Epith Cells Urine Bacteria Hyaline Casts Urine Mucus Microbiology 08/12/19 23:30 Urine, Clean Catch Streptococcus pneumoniae Antigen (M - Final 08/12/19 23:30 Urine, Clean Catch Legionella Antigen - Final Clinical Impression(s) from Imaging Studies Chest X-Ray 08/12/19 22:50 IMPRESSION: Worsening of bilateral pulmonary infiltrates consistent with nonspecific multifocal pneumonia. Electronically Signed: Eriberto Smalls MD at 23:13 EDT , Service support , Current Medications Acetaminophen (Tylenol) 650 mg PO Q6H PRN PRN PRN Reason: Pain Score 1-10/Temp > 100.7 F Last Admin: 08/13/19 05:11 Dose: 162.5 mg Documented by: Dextrose (D50w Syringe) 0 gm IV X1 PRN; Protocol PRN Reason: Hypoglycemia Enoxaparin Sodium (Lovenox) 40 mg SC BID LEONARD Last Admin: 08/13/19 02:03 Dose: 40 mg Documented by: Glucagon () 1 mg IM .X1 PRN PRN Reason: Hypoglycemia Guaifenesin (Mucinex) 1,200 mg PO BID [facility] Last Admin: 08/13/19 02:04 Dose: 1,200 mg Documented by: Hydroxyurea (Hydrea) 1,000 mg PO DAILY [facility] Azithromycin 500 mg/ Dextrose 255 mls @ 250 mls/hr IV Q24H LEONARD Ceftriaxone Sodium 2 gm/ (Sodium Chloride) 50 mls @ 100 mls/hr IV Q24H LEONARD Sodium Chloride () 250 mls @ 15 mls/hr IV .[id number] PRN PRN Reason: Saline Flush Sodium Chloride () 250 mls @ 15 mls/hr IV .[id number] PRN PRN Reason: Additional IVPB Infusion Levothyroxine Sodium (Synthroid) 100 mcg PO DAILY [facility] Lisinopril (Zestril) 5 mg PO DAILY [facility] Melatonin (Melatonin) 3 mg PO QHS PRN PRN PRN Reason: INSOMNIA Ondansetron HCl (Zofran) 4 mg IV Q8H PRN PRN PRN Reason: NAUSEA/VOMITING Phenytoin Sodium (Dilantin) 200 mg PO DAILY [facility] Sodium Chloride () 10 - 40 ml IV UD PRN PRN Reason: SALINE FLUSH Assessment/Plan Active and Suspected Problems (Last Reviewed 08/13/19 @ 01:[address] Matt Espinoza MD) Pneumonia (Acute) Hypoxia (Acute) COVID-19 (Acute) SARS-associated coronavirus infection (Acute) RECOMMENDATIONS: 1. Broad-spectrum antimicrobial coverage, pending infectious work-up and consultation by infectious diseases. 2. Transition to BiPAP therapy and wean to maintain oxygen saturations at or above 90%. 3. Patient to remain n.p.o. for now. 4. Administer convalescent plasma once available. 5. Start treatment dose Lovenox. IMPRESSIONS: 1. Acute hypoxemic respiratory failure secondary to COVID-19 infection The patient was recently evaluated in the emergency department on August 06 with a CTA chest which revealed bilateral groundglass changes. Subsequent COVID testing was positive. Although the patient was initially discharged home, he has experienced worsening shortness of breath and hypoxemia, which prompted his hospital admission. Repeat chest imaging did reveal progressive bilateral infiltrates. At the present time, the patient is going to be transition from Airvo heated high flow over to BiPAP therapy. He will remain on empiric broad-spectrum antimicrobials, pending evaluation by infectious diseases. We will plan to check MRSA screen as well. Treatment strength Lovenox will be continued as well. The patient has been enrolled in the convalescent plasma program as of August 13, 2019 ([place] [id number]). 2. Unspecified seizure disorder/hypothyroidism/hypertension/obesity Complicates care, management, recovery and prognosis. Continue home medications as indicated. TIME: 40 minutes of critical care time, independent of procedures, was spent addressing the patient's acute hypoxemic respiratory failure secondary to COVID-19 infection, review of all data and collaboration with the care team. [id number]) [phone] [id number] Critical care first hour
--- NOTE | 2019-08-13 07:22 | PCM.PN.BLA ---
Progress Note Patient is a 79-year-old gentleman recently diagnosed with COVID 19 infection as an outpatient who presented to the emergency department with progressive shortness of breath. An assessment of acute respiratory failure secondary to COVID 19 with suspected superimposed infection made admitted to the intensive care unit for further management 1. Acute hypoxic respiratory failure secondary to COVID 19 infection with suspected superimposed pneumonia 2. Essential hypertension 3. Hypothyroidism 4. Obesity with BMI of 31.1 Patient seen and examined. His initial assessment including history and physical diagnostic data and management orders reviewed will follow STROKE Vital Signs/Narrative: Vital Signs Temp Pulse Resp BP Pulse Ox 08/13/19 07:00 98.3 F 67 27 H 139/67 H 93 08/13/19 06:00 64 34 H 140/65 H 91 08/13/19 05:00 98.5 F 71 21 H 125/63 H 92 08/13/19 04:18 71 08/13/19 04:00 72 22 H 133/56 H 92 08/13/19 03:30 70 34 H 119/69 91
[2019-08-13] MEDS: 0.9% Saline Lock 10 ML Syringe IV ×2 (08:39→21:41)
[2019-08-13 08:49] LABS: BNP,B-Type NATRIURETIC PEPTIDE 48.9 pg/mL (0-100)
--- NOTE | 2019-08-13 09:02 | PCM.RX.CS ---
Consult Pharmacy has been consulted to manage selected antiobiotic: Vancomycin Type of Consult: New start Suspected Infection: Pneumonia Labs: Sodium 132 mmol/L (136-145) L 08/13/19 05:05 Potassium 4.1 mmol/L (3.5-5.1) 08/13/19 05:05 Chloride 101 mmol/L (98-107) 08/13/19 05:05 Carbon Dioxide 24.0 mmol/L (21.0-32.0) 08/13/19 05:05 Anion Gap 7 (5-15) 08/13/19 05:05 BUN 26 mg/dL (7-18) H 08/13/19 05:05 Creatinine 1.18 mg/dL (0.70-1.30) 08/13/19 05:05 Est GFR (MDRD) Af Amer 77 mL/min (>60) 08/13/19 05:05 Est GFR (MDRD) Non-Af 63 mL/min (>60) 08/13/19 05:05 BUN/Creatinine Ratio 22.0 RATIO (10-20) H 08/13/19 05:05 Glucose 128 mg/dL (74-106) H 08/13/19 05:05 Microbiology: Microbiology 08/12/19 23:30 Urine, Clean Catch Streptococcus pneumoniae Antigen (M - Final 08/12/19 23:30 Urine, Clean Catch Legionella Antigen - Final Weight used for dosin.5 kg Estimated Creatinine Clearance: 60.7ML/MIN Goal Trough: 15-20 mcg/mL Pharmacy Plan for Drug Dosing: Give initial loading dose of 2000mg IV x1, then continue with 1250mg IV q12h per [facility] dosing protocol. A trough will be ordered to be drawn before the 4th total dose. The patient's CrCl of 60.7 ml/min was calculated using an adjusted body weight of 83.2kg. Pharmacy Service will continue to monitor and adjust dosing as required. Follow-Up Labs: Trough Vancomycin Labs to be done on [date and time ordered]: 08/14/19 20:30
[2019-08-13] MEDS: Lisinopril 5 MG Tablet PO (10:03)
[2019-08-13] MEDS: Enoxaparin 100 MG/ML Syringe SC ×2 (10:03→21:41)
[2019-08-13] MEDS: Levothyroxine 100 MCG Tablet PO (10:03)
[2019-08-13] MEDS: Hydroxyurea 500 MG Capsule 1000 MG PO (11:00)
[2019-08-13] MEDS: Phenytoin Na 100 MG Capsule 200 MG PO (11:00)
--- NOTE | 2019-08-13 11:33 | CASEMGMT ---
CONCHA HACKETT Assessment: Phone call to for initial transition planning/care coordination assessment as pt is on continuous bipap at this time and in COVID restrictions. RN LEW introduced self and role at [facility] to , voices understanding and is willing to answer questions for pt at this time. is A/Ox4 at this time and answers all questions appropriately at this time. is aware of need for her to be in isolation at this time and states she is attempting to follow 'all the guidelines' and that they would both comply when pt ready to come home. Care providers, pharmacy, and demographics verified at this time at this time. Presentation: +COVID test on 08/07 with increased SOB since Admitting dx: SARS, COVID infection PCP: Yoli DUNBAR Specialists: states no current specialists. Preferred Pharmacy: [facility] Prescription Benefit: A[employer] Living Will/HPOA: does not believe that pt has LW/HPOA. LNOK: Ashly Muñoz, Living Arrangements: Pt lives with in 1 story home with flight of stairs to walk out basement and states pt has no concerns at home at this time. states that pt is normally independent with ADL's. Transportation: states that pt normally drives and states no transportation concerns at this time. DME/HHC: Per , pt states no current DME for pt at this time. also states no hx of HHC or SNF. CM to follow as pt still on continuous bipap and for PT/OT evals/recommendations once pt passes mobility. Pt is retired. Pt does not smoke or drink ETOH. voices no further questions/concerns/needs at this time. CM to follow for any further discharge planning/needs. Advised pt/ to ask for CM if any further questions/concerns/needs arise, voices understanding. Pt Goal: Home Plan: TBD, pending course/therapy evals. [place] CONCHA HACKETT
[2019-08-13 12:06] LABS: M R Staph aureus DNA By PCR Negative (Negative); Probe Check PASS; Specimen Processing Control PASS
--- NOTE | 2019-08-13 16:18 | CON.PCM_ITS ---
Problem List (1) COVID-19 Status: Acute Reason for Consult: danitza Consulted by: Dr. Bustillo History of Present Illness: The patient is a 79 year old M who presented to ED yesterday with worsening dyspnea, cough, aches, not feeling well. Came to ED 08/06 with several days of abd across lower abd, fever, reported episode of blood in urine that he found in his underwear. COVID sent, sent home on levaquin. Has chronic loss of taste/smell. No sick contacts. at home has been feeling fine. In ED, found to be in resp failure, given azithro/ceftriaxone, admitted to icu on vanc/zosyn, NIPPV. Feeling about the same today. Full ROS performed and neg except as noted above. - Medical History Surgical History: reviewed Allergies/Adverse Reactions: Allergies No Known Allergies Allergy (Verified 08/12/19 21:15) Home Medications: Ambulatory Orders Medication Instructions Recorded Phenytoin Na [Dilantin] 200 mg PO DAILY 10/15/13 Levofloxacin [Levaquin] 750 mg PO DAILY #7 tab 08/07/19 Hydroxyurea [Hydrea] 1,000 mg PO DAILY 08/12/19 Levothyroxine [Synthroid] 100 mcg PO DAILY 08/12/19 Lisinopril [Prinivil] 5 mg PO DAILY 08/12/19 - Social History SMOKING STATUS:: Never smoker Vital Signs Temp Pulse Resp BP Pulse Ox 97.6 F L 59 L 26 H 124/63 H 96 08/13/19 12:00 08/13/19 14:00 08/13/19 14:00 08/13/19 14:00 08/13/19 14:00 Oxygen Flow Rate (L/min) 60 Oxygen Delivery Method CPAP Weight: 98.5 kg Body Mass Index (BMI) 31.1 Microbiology Past 72 Hours 08/12/19 23:30 Streptococcus pneumoniae Antigen (M - Final Urine, Clean Catch 08/12/19 23:30 Legionella Antigen - Final Urine, Clean Catch Laboratory Tests Past 24 Hrs 08/12/19 08/12/19 08/12/19 21:34 21:34 21:34 WBC 6.4 RBC 3.94 L Hgb 13.6 Hct 40.2 MCV 102.0 H MCH 34.5 H MCHC 33.8 RDW Std Deviation 54.8 H RDW Coeff of Nacho 14.5 Plt Count 523 H MPV 9.2 Immature Gran % (Auto) 0.500 Neut % (Auto) 91.9 H Lymph % (Auto) 3.7 L [place] % (Auto) 3.4 Eos % (Auto) 0.2 Baso % (Auto) 0.3 Absolute Neuts (auto) 5.9 Absolute Lymphs (auto) 0.24 L Nucleated RBC % 0 Differential Comment SEE COMMENT Platelet Estimate MOD INC RBC Morphology N CHROM Anisocytosis 1+ Macrocytosis 1+ PT INR APTT D-Dimer Quant (PE/DVT) Sodium 132 L Potassium 4.1 Chloride 102 Carbon Dioxide 22.0 Anion Gap 8 BUN 26 H Creatinine 1.21 Estim Creat Clear Calc 51.95 Est GFR (MDRD) Af Amer 75 Est GFR (MDRD) Non-Af 62 BUN/Creatinine Ratio 21.5 H Glucose 142 H Lactic Acid Calcium 8.0 L Ferritin Total Bilirubin 0.50 AST 56 H ALT 48 Alkaline Phosphatase 63 Total Creatine Kinase Troponin I < 0.015 B-Natriuretic Peptide Total Protein 6.6 Albumin 2.9 L Globulin 3.7 Albumin/Globulin Ratio 0.8 L Procalcitonin 0.08 Urine Color Urine Clarity Urine pH Ur Specific [place] Urine Protein Urine Glucose (UA) Urine Ketones Urine Occult Blood Urine Nitrite Urine Bilirubin Urine Urobilinogen Ur Leukocyte Esterase Urine RBC Urine WBC Ur Squamous Epith Cells Urine Bacteria Hyaline Casts Urine Mucus MRSA (PCR) Blood Type Antibody Screen 08/12/19 08/12/19 08/12/19 21:34 21:34 21:34 WBC RBC Hgb Hct MCV MCH MCHC RDW Std Deviation RDW Coeff of Nacho Plt Count MPV Immature Gran % (Auto) Neut % (Auto) Lymph % (Auto) [place] % (Auto) Eos % (Auto) Baso % (Auto) Absolute Neuts (auto) Absolute Lymphs (auto) Nucleated RBC % Differential Comment Platelet Estimate RBC Morphology Anisocytosis Macrocytosis PT 17.5 H INR 1.5 APTT 44.5 H D-Dimer Quant (PE/DVT) Sodium Potassium Chloride Carbon Dioxide Anion Gap BUN Creatinine Estim Creat Clear Calc Est GFR (MDRD) Af Amer Est GFR (MDRD) Non-Af BUN/Creatinine Ratio Glucose Lactic Acid 1.7 Calcium Ferritin Total Bilirubin AST ALT Alkaline Phosphatase Total Creatine Kinase 106 Troponin I B-Natriuretic Peptide Total Protein Albumin Globulin Albumin/Globulin Ratio Procalcitonin Urine Color Urine Clarity Urine pH Ur Specific [place] Urine Protein Urine Glucose (UA) Urine Ketones Urine Occult Blood Urine Nitrite Urine Bilirubin Urine Urobilinogen Ur Leukocyte Esterase Urine RBC Urine WBC Ur Squamous Epith Cells Urine Bacteria Hyaline Casts Urine Mucus MRSA (PCR) Blood Type Antibody Screen 08/12/19 08/13/19 08/13/19 23:00 05:05 05:05 WBC 7.5 RBC 3.79 L Hgb 13.1 Hct 38.1 L MCV 100.5 H MCH 34.6 H MCHC 34.4 RDW Std Deviation 53.2 H RDW Coeff of Nacho 14.4 Plt Count 455 H MPV 9.2 Immature Gran % (Auto) 0.400 Neut % (Auto) 94.2 H Lymph % (Auto) 2.9 L [place] % (Auto) 2.3 Eos % (Auto) 0.1 Baso % (Auto) 0.1 Absolute Neuts (auto) 7.0 Absolute Lymphs (auto) 0.22 L Nucleated RBC % 0 Differential Comment SCANNED Platelet Estimate RBC Morphology Anisocytosis Macrocytosis PT INR APTT D-Dimer Quant (PE/DVT) 1.57 H* Sodium Potassium Chloride Carbon Dioxide Anion Gap BUN Creatinine Estim Creat Clear Calc Est GFR (MDRD) Af Amer Est GFR (MDRD) Non-Af BUN/Creatinine Ratio Glucose Lactic Acid Calcium Ferritin Total Bilirubin AST ALT Alkaline Phosphatase Total Creatine Kinase Troponin I B-Natriuretic Peptide Total Protein Albumin Globulin Albumin/Globulin Ratio Procalcitonin Urine Color Yellow Urine Clarity Clear Urine pH 5.0 Ur Specific [place] 1.020 Urine Protein 100 H Urine Glucose (UA) Normal Urine Ketones 5 H Urine Occult Blood 25 H Urine Nitrite Negative Urine Bilirubin Negative Urine Urobilinogen 1 H Ur Leukocyte Esterase 25 H Urine RBC 0-5 SEEN Urine WBC 0-5 SEEN Ur Squamous Epith Cells 0-5 SEEN Urine Bacteria 1+ Hyaline Casts 0-5 SEEN Urine Mucus 0 SEEN MRSA (PCR) Blood Type Antibody Screen 08/13/19 08/13/19 08/13/19 05:05 05:05 06:45 WBC RBC Hgb Hct MCV MCH MCHC RDW Std Deviation RDW Coeff of Nacho Plt Count MPV Immature Gran % (Auto) Neut % (Auto) Lymph % (Auto) [place] % (Auto) Eos % (Auto) Baso % (Auto) Absolute Neuts (auto) Absolute Lymphs (auto) Nucleated RBC % Differential Comment Platelet Estimate RBC Morphology Anisocytosis Macrocytosis PT INR APTT D-Dimer Quant (PE/DVT) Sodium 132 L Potassium 4.1 Chloride 101 Carbon Dioxide 24.0 Anion Gap 7 BUN 26 H Creatinine 1.18 Estim Creat Clear Calc 53.27 Est GFR (MDRD) Af Amer 77 Est GFR (MDRD) Non-Af 63 BUN/Creatinine Ratio 22.0 H Glucose 128 H Lactic Acid Calcium 7.8 L Ferritin 1156 H Total Bilirubin AST ALT Alkaline Phosphatase Total Creatine Kinase Troponin I B-Natriuretic Peptide 48.9 Total Protein Albumin Globulin Albumin/Globulin Ratio Procalcitonin Urine Color Urine Clarity Urine pH Ur Specific [place] Urine Protein Urine Glucose (UA) Urine Ketones Urine Occult Blood Urine Nitrite Urine Bilirubin Urine Urobilinogen Ur Leukocyte Esterase Urine RBC Urine WBC Ur Squamous Epith Cells Urine Bacteria Hyaline Casts Urine Mucus MRSA (PCR) Blood Type A NEGATIVE Antibody Screen NEGATIVE 08/13/19 08:45 WBC RBC Hgb Hct MCV MCH MCHC RDW Std Deviation RDW Coeff of Nacho Plt Count MPV Immature Gran % (Auto) Neut % (Auto) Lymph % (Auto) [place] % (Auto) Eos % (Auto) Baso % (Auto) Absolute Neuts (auto) Absolute Lymphs (auto) Nucleated RBC % Differential Comment Platelet Estimate RBC Morphology Anisocytosis Macrocytosis PT INR APTT D-Dimer Quant (PE/DVT) Sodium Potassium Chloride Carbon Dioxide Anion Gap BUN Creatinine Estim Creat Clear Calc Est GFR (MDRD) Af Amer Est GFR (MDRD) Non-Af BUN/Creatinine Ratio Glucose Lactic Acid Calcium Ferritin Total Bilirubin AST ALT Alkaline Phosphatase Total Creatine Kinase Troponin I B-Natriuretic Peptide Total Protein Albumin Globulin Albumin/Globulin Ratio Procalcitonin Urine Color Urine Clarity Urine pH Ur Specific [place] Urine Protein Urine Glucose (UA) Urine Ketones Urine Occult Blood Urine Nitrite Urine Bilirubin Urine Urobilinogen Ur Leukocyte Esterase Urine RBC Urine WBC Ur Squamous Epith Cells Urine Bacteria Hyaline Casts Urine Mucus MRSA (PCR) Negative Blood Type Antibody Screen - Other Studies Radiology: [] reviewed Other Studies: [] Route of nutrition/ use of supplements: [] Nutritional Intake: [] IV Site: [] Neil Catheter: [] - Physical Exam General: Alert, Cooperative, - - ill appearing, some wernicke-type aphasia Neck: Supple, No Nodes Lungs: Diminished Cardiovascular: Tachycardic Abdomen: Soft, Non Tender, Non-Distended Extremities: Edema Skin: No rashes IV Site: Peripheral, without redness Musculoskeletal: No Tenderness to Palpation of Joints or Extremities Neurological: Cranial nerves II-XII grossly intact - Assessment/Plan Antibiotics: [] Assessment/Plan: [] Active and Suspected Problems (Last Reviewed 08/13/19 @ 01:[address] Matt Espinoza MD) Pneumonia (Acute) Hypoxia (Acute) COVID-19 (Acute) SARS-associated coronavirus infection (Acute) COVID with hypoxic resp failure - to get convalescent plasma tonight. MRSA screen neg. Will stop vanc. Cont zosyn. Ordered sputum cx. Elevated d-dimer, ferritin, BNP. Lymphopenia present. PCT was 0.08. Overall low suspicion for bacterial process, may be able to stop zosyn if cxs remain neg over next 1-2 days. On therapeutic anticoagulation. Will follow, thank you, d/w Dr. Navarro and nursing.
[2019-08-14] VITALS (71 sets, daily range): BP systolic 72–194; BP diastolic 32–112; PULSE 58–130; RESP 12–46; TEMP 36.7–39.3; O2SAT 76–100; BMI 31.1
--- NOTE | 2019-08-14 | CPS ---
Addendum entered and electronically signed by Calvin Nova 08/14/19 03:23: [[id number]] Original Note: Pt. took AirVo off and his SpO2 dropped into the 50's. BiPAP placed on pt., with FiO2 titrated to 100% to allow pt. to recover. FiO2 titrated to 60%, and the pt. maintained SpO2 in the mid 90's. Pt. responsive and coherent. Diminished breath sounds.
--- NOTE | 2019-08-14 01:00 | NURSING ---
Pts bipap alarming, pt noted to have pulled apart connection, pt desated, work of breathing increased, using accesory muscles, taking time to recover. called coming to see pt.
--- NOTE | 2019-08-14 01:33 | PCM.PN.BLA ---
Progress Note Earlier was notified by nursing team the patient's is not tolerating BiPAP. Nursing team requested for Ativan for patient is possible Ativan 0.5 mg IV every 4 hours prn ordered. Nurse reported that patient continued to have respiratory distress while on BiPAP after receiving Ativan.. Respiratory rate in 30s to 40s use of accessory muscles of respiration. Intubation was discussed with patient. Patient is currently a full code. Patient wanted care team to discuss with [id number] and when is okay for him to be intubated. Patient was examined at bedside and reiterated that [id number] and should be called to discuss intubation. Nursing team placed a call to and left a message. Nursing team and myself discussed the case with patient [id number] Mine Muñoz who was okay with intubation. Also I discussed case with patient's son Winston Muñoz who was also okay with intubation. Will give patient Ativan 1 mg IV and see when he can better tolerate BiPAP and whether his breathing will improve. If patient continues to have respiratory distress after receiving Ativan 1 mg IV will consider intubation. This was discussed with Mr. Muñoz in Winston Muñoz; as well as nursing team. STROKE Vital Signs/Narrative: Vital Signs Temp Pulse Resp BP BP Pulse Ox 08/14/19 01:00 78 35 H 156/73 H 89 08/14/19 00:00 98.0 F 72 31 H 146/69 H 146/69 H 95 08/13/19 23:46 78 08/13/19 23:00 63 35 H 108/61 95 08/13/19 22:15 69 38 H 97 08/13/19 22:00 85 33 H 147/66 H 95
[2019-08-14] MEDS: LORazepam 2 MG/ML Syringe 1 MG IV (01:43)
[2019-08-14] MEDS: 0.9% Saline Lock 10 ML Syringe IV ×4 (01:43→10:58)
[2019-08-14 02:50] LABS: Base Excess -4 mmol/L (-2 to +2); Bicarbonate 20.4 mmol/L (22-26); Blood Gas Specimen Type ART; PO2 60 mmHG (75-100); SO2 92 % (95-99); Total Carbon Dioxide 21 mmol/L; pCO2 28.8 mmHg (35-45); pH 7.46 (7.35-7.45)
[2019-08-14 02:51] LABS: Allen Test POS; O2 Delivery Device Bi Pap; SITE L RADIAL
[2019-08-14 02:52] LABS: EPAP 8; FI02 60; IPAP 12; Time Given 152
[2019-08-14] MEDS: Haloperidol Lactate 5 MG/ML Vial 2 MG IV ×2 (03:25→04:10)
[2019-08-14 03:49] LABS: D-Dimer Quantitative (DVT/PE) 1.27 FEU/ug/m (0.27-0.49)
[2019-08-14 03:51] LABS: ALB/GLOB Ratio 0.6 RATIO (0.9-2.4); AST(SGOT) 69 U/L (15-37); Alanine Aminotransfer ALT/SGPT 49 U/L (16-61); Albumin, Serum 2.5 g/dL (3.2-5.0); Alkaline Phosphatase 68 U/L (45-117); Anion Gap 9 (5-15); BUN 27 mg/dL (7-18); BUN/Creat Ratio 20.1 RATIO (10-20); Calcium,Total 8.1 mg/dL (8.5-10.1); Chloride 99 mmol/L (98-107); Creatinine, Serum 1.34 mg/dL (0.70-1.30); EST Glomerular Filtration Rate 55 mL/min (>60); Est Glom Filt Rate - Afr Amer 66 mL/min (>60); Estimated Creatinine Clearance 46.91 ml/min; Ferritin 1301 ng/mL (26-388); Globulin 3.9 g/dL (2.2-4.2); Glucose 127 mg/dL (74-106); Magnesium 2.1 mg/dL (1.6-2.6); Potassium 4.1 mmol/L (3.5-5.1); Protein, Total 6.4 g/dL (6.4-8.2); Sodium Level 132 mmol/L (136-145)
--- NOTE | 2019-08-14 04:40 | NURSING ---
0440 Dr. Espinoza at bedside 0444 etomidate 20 mg given 0444 succinylcholine 50 mg given 0448 bagging patient 0456 succinylcholine 50 mg given 0458 bagging patient 0501 etomidate 20 mg given 0502 succinylcholine 100 mg given 0503 intubated 7.5 ETT 23 @ lip positive color change bilateral breath sounds 0510 OG inserted by Ibrahima Huston RN 0512 propofol 20 mg given 0513 propofol and fentanyl gtts started, see med titration 0521 zarco catheter inserted by Ibrahima Huston RN
[2019-08-14] MEDS: Etomidate 20 MG/10 ML Vial IV ×2 (04:44→05:01)
[2019-08-14] MEDS: Propofol 200 MG/20 ML Vial 20 MG IV BOLUS (05:05)
[2019-08-14] MEDS: Propofol 10MG/Ml 1,000 MG/100 ML Bottle 5.9 MG CONT INF ×2 (05:13→08:00)
[2019-08-14] MEDS: fentaNYL drip 100 ML 5 MCG IV (05:13)
--- NOTE | 2019-08-14 05:18 | PCM.PN.BLA ---
Progress Note Endotracheal Intubation Note Indication: Respiratory Distress Performed by: Dr. Matt Espinoza The patient was placed in supine position. RSI was done using at total of Etomidate 40 mg and succinylcholine 200 mg. A Glidescope was used and inserted into the oropharynx at which time there was a Grade 1 view of the vocal cords. A 7.5-singaporean endotracheal tube was inserted and visualized going through the vocal cords. The stylette was removed and cuff was inflated. Colorimetric change was visualized on the CO2 detector. Breath sounds were heard equally in both lung carroll. The endotracheal tube was placed at 22.5 cm, measured at the lips. A STAT chest x-ray was ordered to verify endotracheal tube placement. There were no immediate complications. STROKE Vital Signs/Narrative: Vital Signs Pulse Resp BP Pulse Ox 08/14/19 03:01 81 08/14/19 03:00 78 32 H 114/67 97 08/14/19 02:10 72 46 H 97 08/14/19 02:00 73 27 H 126/70 H 93 Procedures: 80122 Insert Emergency Airway
--- NOTE | 2019-08-14 05:20 | RAD_ITS ---
STUDY: X-RAY CHEST REASON FOR EXAM: Male, 79 years old patient with recent intubation. TECHNIQUE: Single AP portable view of the chest. COMPARISON: August 12, 2019. FINDINGS: Tip of endotracheal tube is at the level of medial clavicles, 7 cm from the syd. Cardiac monitoring leads are present. Lungs are expanded. Bilateral heterogeneous airspace consolidations, right greater than left consistent with multifocal pneumonia. There is no demonstrated pleural abnormality. There is borderline cardiomegaly. The hilar areas appear prominent. Normal visualized pulmonary arteries. Normal visualized aortic arch and descending thoracic aorta. There are diffuse degenerative changes of the visualized thoracic spine. Normal visualized ribs, clavicles, and shoulders. There is no demonstrated abnormality of the visualized soft tissue structures of the upper abdomen. RAD/Chest 1 View (Portable) IMPRESSION: 1. Suggest advancing endotracheal tube approximately 2 or 3 cm. 2. Unchanged appearance to bilateral multifocal airspace disease consistent with pneumonia. Electronically Signed: Shamika Mistry MD at 8:34 EDT , Service support ,
--- NOTE | 2019-08-14 05:39 | PCM.PN.INT ---
Subjective: The patient was seen and examined at the bedside this morning. Events from the last 24 hours have been reviewed. The patient is currently afebrile, hemodynamically stable and maintaining appropriate oxygen saturations on assist control mode mechanical ventilation with an FiO2 requirement of 100% and PEEP of 10. Last evening, nursing staff reported that the patient kept taking off his Airvo heated high flow and would then desaturate. He was subsequently transitioned to BiPAP therapy but went on to develop increased work of breathing and significant restlessness. The patient did receive the convalescent plasma last evening as well. Attempts to sedate the patient on BiPAP therapy was largely unsuccessful. Therefore, the patient was intubated early this morning. Per report, the patient rapidly desaturated during intubation. The patient currently has a #7.[address] He is currently documented to be 1.6 L positive for the hospital admission. Objective: The patient's most recent lab work, culture data and imaging studies have all been personally reviewed. CTA chest revealed suboptimal opacification of the bilateral pulmonary arteries. No significant PE was identified. However, bilateral groundglass changes were present, most pronounced in the right lower lobe. Coronavirus PCR was positive on August 06. Respiratory viral panel was negative. Strep and urine Legionella antigens were negative. Sputum and blood cultures are pending. General: - - Currently intubated, sedated and mechanically ventilated. HEENT: Atraumatic, PERRLA, Normocephalic Oral: No Gingival or Mucosal Lesions/ Ulcerations, - - Endotracheal and OG tubes in place. Neck: Supple, No Nodes, Trachea Midline Lungs: No rhonchi, No wheeze, No rales, Diminished, Tachypneic Cardiovascular: Normal S1, Normal S2, No murmurs, Tachycardic Abdomen: Bowel Sounds Present, Soft, Non Tender, Obese Extremities: No clubbing, No cyanosis, No edema Skin: No breakdown Musculoskeletal: No Tenderness to Palpation of Joints or Extremities Lymphatic: No Cervical, Supraclavicular, or Inguinal Adenopathy Neurological: - - No focal neurological deficits. Currently sedated on the vent. Vital Signs Temp Pulse Resp BP Pulse Ox 98.0 F 81 32 H 114/67 97 08/14/19 00:00 08/14/19 03:01 08/14/19 03:00 08/14/19 03:00 08/14/19 03:00 Oxygen Flow Rate (L/min) 60 Oxygen Delivery Method Bi-pap Weight: 217 lb 2.485 oz Body Mass Index (BMI) 31.1 Intake and Output for Last 24 Hours 08/12/19 08/13/19 08/14/19 23:59 23:59 23:59 Intake Total 50 / 50 2445 / 2685 240 / 240 Output Total 925 / 1200 275 / 275 Balance 50 / 50 1520 / 1485 -35 / -35 Labs (Last 48 Hours) 08/12/19 08/12/19 08/12/19 21:34 21:34 21:34 WBC 6.4 RBC 3.94 L Hgb 13.6 Hct 40.2 MCV 102.0 H MCH 34.5 H MCHC 33.8 RDW Std Deviation 54.8 H RDW Coeff of Nacho 14.5 Plt Count 523 H MPV 9.2 Immature Gran % (Auto) 0.500 Neut % (Auto) 91.9 H Lymph % (Auto) 3.7 L [place] % (Auto) 3.4 Eos % (Auto) 0.2 Baso % (Auto) 0.3 Absolute Neuts (auto) 5.9 Absolute Lymphs (auto) 0.24 L Nucleated RBC % 0 Differential Comment SEE COMMENT Platelet Estimate MOD INC RBC Morphology N CHROM Anisocytosis 1+ Macrocytosis 1+ PT INR APTT D-Dimer Quant (PE/DVT) Specimen Type Sample Site pH Bicarbonate Actual POC Total CO2 Base Excess O2 Saturation O2 % ABG pCO2 ABG pO2 Oziel Test O2 Delivery Device EPAP IPAP Blood Gas Notified Whom Blood Gas Notified Time Sodium 132 L Potassium 4.1 Chloride 102 Carbon Dioxide 22.0 Anion Gap 8 BUN 26 H Creatinine 1.21 Estim Creat Clear Calc 51.95 Est GFR (MDRD) Af Amer 75 Est GFR (MDRD) Non-Af 62 BUN/Creatinine Ratio 21.5 H Glucose 142 H Lactic Acid Calcium 8.0 L Magnesium Ferritin Total Bilirubin 0.50 AST 56 H ALT 48 Alkaline Phosphatase 63 Total Creatine Kinase Troponin I < 0.015 B-Natriuretic Peptide Total Protein 6.6 Albumin 2.9 L Globulin 3.7 Albumin/Globulin Ratio 0.8 L Procalcitonin 0.08 Urine Color Urine Clarity Urine pH Ur Specific [place] Urine Protein Urine Glucose (UA) Urine Ketones Urine Occult Blood Urine Nitrite Urine Bilirubin Urine Urobilinogen Ur Leukocyte Esterase Urine RBC Urine WBC Ur Squamous Epith Cells Urine Bacteria Hyaline Casts Urine Mucus MRSA (PCR) Blood Type Antibody Screen 08/12/19 08/12/19 08/12/19 21:34 21:34 21:34 WBC RBC Hgb Hct MCV MCH MCHC RDW Std Deviation RDW Coeff of Nacho Plt Count MPV Immature Gran % (Auto) Neut % (Auto) Lymph % (Auto) [place] % (Auto) Eos % (Auto) Baso % (Auto) Absolute Neuts (auto) Absolute Lymphs (auto) Nucleated RBC % Differential Comment Platelet Estimate RBC Morphology Anisocytosis Macrocytosis PT 17.5 H INR 1.5 APTT 44.5 H D-Dimer Quant (PE/DVT) Specimen Type Sample Site pH Bicarbonate Actual POC Total CO2 Base Excess O2 Saturation O2 % ABG pCO2 ABG pO2 Oziel Test O2 Delivery Device EPAP IPAP Blood Gas Notified Whom Blood Gas Notified Time Sodium Potassium Chloride Carbon Dioxide Anion Gap BUN Creatinine Estim Creat Clear Calc Est GFR (MDRD) Af Amer Est GFR (MDRD) Non-Af BUN/Creatinine Ratio Glucose Lactic Acid 1.7 Calcium Magnesium Ferritin Total Bilirubin AST ALT Alkaline Phosphatase Total Creatine Kinase 106 Troponin I B-Natriuretic Peptide Total Protein Albumin Globulin Albumin/Globulin Ratio Procalcitonin Urine Color Urine Clarity Urine pH Ur Specific [place] Urine Protein Urine Glucose (UA) Urine Ketones Urine Occult Blood Urine Nitrite Urine Bilirubin Urine Urobilinogen Ur Leukocyte Esterase Urine RBC Urine WBC Ur Squamous Epith Cells Urine Bacteria Hyaline Casts Urine Mucus MRSA (PCR) Blood Type Antibody Screen 08/12/19 08/13/19 08/13/19 23:00 05:05 05:05 WBC 7.5 RBC 3.79 L Hgb 13.1 Hct 38.1 L MCV 100.5 H MCH 34.6 H MCHC 34.4 RDW Std Deviation 53.2 H RDW Coeff of Nacho 14.4 Plt Count 455 H MPV 9.2 Immature Gran % (Auto) 0.400 Neut % (Auto) 94.2 H Lymph % (Auto) 2.9 L [place] % (Auto) 2.3 Eos % (Auto) 0.1 Baso % (Auto) 0.1 Absolute Neuts (auto) 7.0 Absolute Lymphs (auto) 0.22 L Nucleated RBC % 0 Differential Comment SCANNED Platelet Estimate RBC Morphology Anisocytosis Macrocytosis PT INR APTT D-Dimer Quant (PE/DVT) 1.57 H* Specimen Type Sample Site pH Bicarbonate Actual POC Total CO2 Base Excess O2 Saturation O2 % ABG pCO2 ABG pO2 Oziel Test O2 Delivery Device EPAP IPAP Blood Gas Notified Whom Blood Gas Notified Time Sodium Potassium Chloride Carbon Dioxide Anion Gap BUN Creatinine Estim Creat Clear Calc Est GFR (MDRD) Af Amer Est GFR (MDRD) Non-Af BUN/Creatinine Ratio Glucose Lactic Acid Calcium Magnesium Ferritin Total Bilirubin AST ALT Alkaline Phosphatase Total Creatine Kinase Troponin I B-Natriuretic Peptide Total Protein Albumin Globulin Albumin/Globulin Ratio Procalcitonin Urine Color Yellow Urine Clarity Clear Urine pH 5.0 Ur Specific [place] 1.020 Urine Protein 100 H Urine Glucose (UA) Normal Urine Ketones 5 H Urine Occult Blood 25 H Urine Nitrite Negative Urine Bilirubin Negative Urine Urobilinogen 1 H Ur Leukocyte Esterase 25 H Urine RBC 0-5 SEEN Urine WBC 0-5 SEEN Ur Squamous Epith Cells 0-5 SEEN Urine Bacteria 1+ Hyaline Casts 0-5 SEEN Urine Mucus 0 SEEN MRSA (PCR) Blood Type Antibody Screen 08/13/19 08/13/19 08/13/19 05:05 05:05 06:45 WBC RBC Hgb Hct MCV MCH MCHC RDW Std Deviation RDW Coeff of Nacho Plt Count MPV Immature Gran % (Auto) Neut % (Auto) Lymph % (Auto) [place] % (Auto) Eos % (Auto) Baso % (Auto) Absolute Neuts (auto) Absolute Lymphs (auto) Nucleated RBC % Differential Comment Platelet Estimate RBC Morphology Anisocytosis Macrocytosis PT INR APTT D-Dimer Quant (PE/DVT) Specimen Type Sample Site pH Bicarbonate Actual POC Total CO2 Base Excess O2 Saturation O2 % ABG pCO2 ABG pO2 Oziel Test O2 Delivery Device EPAP IPAP Blood Gas Notified Whom Blood Gas Notified Time Sodium 132 L Potassium 4.1 Chloride 101 Carbon Dioxide 24.0 Anion Gap 7 BUN 26 H Creatinine 1.18 Estim Creat Clear Calc 53.27 Est GFR (MDRD) Af Amer 77 Est GFR (MDRD) Non-Af 63 BUN/Creatinine Ratio 22.0 H Glucose 128 H Lactic Acid Calcium 7.8 L Magnesium Ferritin 1156 H Total Bilirubin AST ALT Alkaline Phosphatase Total Creatine Kinase Troponin I B-Natriuretic Peptide 48.9 Total Protein Albumin Globulin Albumin/Globulin Ratio Procalcitonin Urine Color Urine Clarity Urine pH Ur Specific [place] Urine Protein Urine Glucose (UA) Urine Ketones Urine Occult Blood Urine Nitrite Urine Bilirubin Urine Urobilinogen Ur Leukocyte Esterase Urine RBC Urine WBC Ur Squamous Epith Cells Urine Bacteria Hyaline Casts Urine Mucus MRSA (PCR) Blood Type A NEGATIVE Antibody Screen NEGATIVE 08/13/19 08/14/19 08/14/19 08:45 01:52 03:25 WBC RBC Hgb Hct MCV MCH MCHC RDW Std Deviation RDW Coeff of Nacho Plt Count MPV Immature Gran % (Auto) Neut % (Auto) Lymph % (Auto) [place] % (Auto) Eos % (Auto) Baso % (Auto) Absolute Neuts (auto) Absolute Lymphs (auto) Nucleated RBC % Differential Comment Platelet Estimate RBC Morphology Anisocytosis Macrocytosis PT INR APTT D-Dimer Quant (PE/DVT) 1.27 H* Specimen Type ART Sample Site L RADIAL pH 7.46 H Bicarbonate Actual 20.4 L POC Total CO2 21 Base Excess -4 L O2 Saturation 92 L O2 % 60 ABG pCO2 28.8 L ABG pO2 60 L Oziel Test POS O2 Delivery Device Bi Pap EPAP 8 IPAP 12 Blood Gas Notified Whom HOSP Blood Gas Notified Time 152 Sodium Potassium Chloride Carbon Dioxide Anion Gap BUN Creatinine Estim Creat Clear Calc Est GFR (MDRD) Af Amer Est GFR (MDRD) Non-Af BUN/Creatinine Ratio Glucose Lactic Acid Calcium Magnesium Ferritin Total Bilirubin AST ALT Alkaline Phosphatase Total Creatine Kinase Troponin I B-Natriuretic Peptide Total Protein Albumin Globulin Albumin/Globulin Ratio Procalcitonin Urine Color Urine Clarity Urine pH Ur Specific [place] Urine Protein Urine Glucose (UA) Urine Ketones Urine Occult Blood Urine Nitrite Urine Bilirubin Urine Urobilinogen Ur Leukocyte Esterase Urine RBC Urine WBC Ur Squamous Epith Cells Urine Bacteria Hyaline Casts Urine Mucus MRSA (PCR) Negative Blood Type Antibody Screen 08/14/19 03:25 WBC RBC Hgb Hct MCV MCH MCHC RDW Std Deviation RDW Coeff of Nacho Plt Count MPV Immature Gran % (Auto) Neut % (Auto) Lymph % (Auto) [place] % (Auto) Eos % (Auto) Baso % (Auto) Absolute Neuts (auto) Absolute Lymphs (auto) Nucleated RBC % Differential Comment Platelet Estimate RBC Morphology Anisocytosis Macrocytosis PT INR APTT D-Dimer Quant (PE/DVT) Specimen Type Sample Site pH Bicarbonate Actual POC Total CO2 Base Excess O2 Saturation O2 % ABG pCO2 ABG pO2 Oziel Test O2 Delivery Device EPAP IPAP Blood Gas Notified Whom Blood Gas Notified Time Sodium 132 L Potassium 4.1 Chloride 99 Carbon Dioxide 24.0 Anion Gap 9 BUN 27 H Creatinine 1.34 H Estim Creat Clear Calc 46.91 Est GFR (MDRD) Af Amer 66 Est GFR (MDRD) Non-Af 55 L BUN/Creatinine Ratio 20.1 H Glucose 127 H Lactic Acid Calcium 8.1 L Magnesium 2.1 Ferritin 1301 H Total Bilirubin 0.80 AST 69 H ALT 49 Alkaline Phosphatase 68 Total Creatine Kinase Troponin I B-Natriuretic Peptide Total Protein 6.4 Albumin 2.5 L Globulin 3.9 Albumin/Globulin Ratio 0.6 L Procalcitonin Urine Color Urine Clarity Urine pH Ur Specific [place] Urine Protein Urine Glucose (UA) Urine Ketones Urine Occult Blood Urine Nitrite Urine Bilirubin Urine Urobilinogen Ur Leukocyte Esterase Urine RBC Urine WBC Ur Squamous Epith Cells Urine Bacteria Hyaline Casts Urine Mucus MRSA (PCR) Blood Type Antibody Screen Microbiology 08/12/19 23:30 Urine, Clean Catch Streptococcus pneumoniae Antigen (M - Final 08/12/19 23:30 Urine, Clean Catch Legionella Antigen - Final Clinical Impression(s) from Imaging Studies Chest X-Ray 08/12/19 22:50 IMPRESSION: Worsening of bilateral pulmonary infiltrates consistent with nonspecific multifocal pneumonia. Electronically Signed: Eriberto Smalls MD at 23:13 EDT , Service support , Medical Necessity - Tobacco Use Smoking Status: Never smoker Assessment/Plan All Active Problems (Last Reviewed 08/13/19 @ 01:[address] Matt Espinoza MD) Pneumonia (Acute) Hypoxia (Acute) COVID-19 (Acute) SARS-associated coronavirus infection (Acute) RECOMMENDATIONS: 1. Obtain arterial blood gas in 1 hour. 2. Advance endotracheal tube. 3. Wean FiO2 and PEEP to maintain oxygen saturations at or above 90%. 4. Continue Zosyn per infectious diseases recommendations. 5. Continue therapeutic Lovenox. 6. Begin tube feeds today. 7. Continue appropriate GI prophylaxis. IMPRESSIONS: 1. Acute hypoxemic respiratory failure secondary to COVID-19 infection The patient was recently evaluated in the emergency department on August 06 with a CTA chest which revealed bilateral groundglass changes. Subsequent COVID testing was positive. Although the patient was initially discharged home, he experienced worsening shortness of breath and hypoxemia, which prompted his hospital admission. Repeat chest imaging did reveal progressive bilateral infiltrates. The patient was initially placed on noninvasive positive pressure ventilatory support but decompensated over the ensuing 24 hours. The patient did receive convalescent [place] ([place] [id number]) on the evening of August 12. He unfortunately did have to be intubated on the morning of August 13. The patient will be continued on empiric antimicrobials per infectious diseases recommendations. In addition, the patient will remain on therapeutic dose Lovenox as well. FiO2 and PEEP will be weaned to maintain oxygen saturations at or above 90%. Tube feeds can be initiated today from my perspective. 2. Unspecified seizure disorder/hypothyroidism/hypertension/obesity Complicates care, management, recovery and prognosis. Continue home medications as indicated. TIME: 40 minutes of critical care time, independent of procedures, was spent addressing the patient's acute hypoxemic respiratory failure secondary to COVID-19 infection, review of all data and collaboration with the care team. ([id number]) [phone]: [id number] Critical care first hour
--- NOTE | 2019-08-14 07:30 | PN_ITS ---
Patient Problems: Active and Suspected Problems (Last Reviewed 08/13/19 @ 01:[address] Matt Espinoza MD) Pneumonia (Acute) Hypoxia (Acute) COVID-19 (Acute) SARS-associated coronavirus infection (Acute) Subjective: Patient overnight with significant irritability and agitation when awoken with increased sedation needs requiring pressor therapy initiation in addition to required intubation this a.m. early as patient had consistently been taking off his airvo off with desaturations resulting with attempts for BiPAP trial unfor tunately unsuccessful. Patient also per records received convalescent plasma. Patient continued to be febrile from 5:45 AM onward but prior to this overnight had not been. Patient intubated and sedated currently but no obvious evidence of denies chills, nausea, emesis, abdominal pain, chest pain. Objective: Physical Examination: General: Patient intubated and sedated, not responsive, unable to answer orientation questions, currently no evidence of any distress. Skin: normal color, turgor, no icterus, cyanosis. HEENT: AT/NC, EOM unable to be assessed given sedated status, PERRLA, dry MM, ETT in place. Lungs: Diminished breath sounds bilaterally, intubated and sedated with symmetric rise, no rales, ronchi or wheezing. Heart: Regular rate and rhythm; no gallop, rub audible. Abdomen: soft, obese, NTTP, mildly distended appearance, mildly hyperactive BS. Extremities: no cyanosis, clubbing, mild bilateral hand edema, not markedly pitting. Neurological: Patient intubated and sedated, not responsive, unable to answer orientation questions, currently no evidence of any distress; cognitive function not baseline intact; pupils equally reactive to light and accomodation but sluggish given sedation; cranial nerves unable to be assessed well given sedated, intubated status, currently no movement to painful stimuli given sedated level, strength severely global decreased given sedation and acute presentation. Psychiatric: affect appears flat, sedated, no acute evidence of depressive or anxiety feelings. Vitals/I&O's: Vital Signs Temp Pulse Resp BP Pulse Ox 102.2 F H 64 30 H 93/45 L 98 08/14/19 06:45 08/14/19 06:45 08/14/19 06:45 08/14/19 06:45 08/14/19 06:45 Oxygen Flow Rate (L/min) 60 Oxygen Delivery Method Mechanical Ventilator Weight: 217 lb 2.485 oz Body Mass Index (BMI) 31.1 Intake and Output for Last 24 Hours 08/12/19 08/13/19 08/14/19 23:59 23:59 23:59 Intake Total 50 / 50 2445 / 2685 301.22 / 301.22 Output Total 925 / 1200 400 / 400 Balance 50 / 50 1520 / 1485 -98.78 / -98.78 Microbiology Past 72 Hours 08/12/19 23:30 Urine, Clean Catch Streptococcus pneumoniae Antigen (M - Final 08/12/19 23:30 Urine, Clean Catch Legionella Antigen - Final Laboratory Results 08/13/19 05:05: B-Natriuretic Peptide 48.9 08/13/19 06:45: Blood Type A NEGATIVE, Antibody Screen NEGATIVE 08/13/19 08:45: MRSA (PCR) Negative 08/14/19 01:52: Specimen Type ART, Sample Site L RADIAL, pH 7.46 H, Bicarbonate Actual 20.4 L, POC Total CO2 21, Base Excess -4 L, O2 Saturation 92 L, O2 % 60, ABG pCO2 28.8 L, ABG pO2 60 L, Oziel Test POS, O2 Delivery Device Bi Pap, EPAP 8, IPAP 12, Blood Gas Notified Whom LORRIE MACHADO, Blood Gas Notified Time 152 08/14/19 03:25: D-Dimer Quant (PE/DVT) 1.27 H* 08/14/19 03:25: Sodium 132 L, Potassium 4.1, Chloride 99, Carbon Dioxide 24.0, Anion Gap 9, BUN 27 H, Creatinine 1.34 H, Estim Creat Clear Calc 46.91, Est GFR (MDRD) Af Amer 66, Est GFR (MDRD) Non-Af 55 L, BUN/Creatinine Ratio 20.1 H, Glucose 127 H, Calcium 8.1 L, Magnesium 2.1, Ferritin 1301 H, Total Bilirubin 0.80, AST 69 H, ALT 49, Alkaline Phosphatase 68, Total Protein 6.4, Albumin 2.5 L, Globulin 3.9, Albumin/Globulin Ratio 0.6 L Current Medications Acetaminophen (Tylenol) 650 mg PO Q4H PRN PRN PRN Reason: Pain Score 1-10/Temp > 100.7 F Last Admin: 08/13/19 21:41 Dose: 650 mg Documented by: Dextrose (D50w Syringe) 0 gm IV X1 PRN; Protocol PRN Reason: Hypoglycemia Enoxaparin Sodium (Lovenox) 100 mg SC Q12 [facility] Last Admin: 08/13/19 21:41 Dose: 100 mg Documented by: Famotidine (Pepcid) 20 mg PO BID [facility] Glucagon () 1 mg IM .X1 PRN PRN Reason: Hypoglycemia Guaifenesin (Mucinex) 1,200 mg PO BID [facility] Last Admin: 08/13/19 21:42 Dose: 1,200 mg Documented by: Hydroxyurea (Hydrea) 1,000 mg PO DAILY [facility] Last Admin: 08/13/19 11:00 Dose: 1,000 mg Documented by: Sodium Chloride () 250 mls @ 15 mls/hr IV .[id number] PRN PRN Reason: Saline Flush Sodium Chloride () 250 mls @ 15 mls/hr IV .[id number] PRN PRN Reason: Additional IVPB Infusion Piperacillin Sod/Tazobactam (Sod 3.375 gm/ Sodium Chloride) 50 mls @ 12.5 mls/hr IV Q8@0200,1000,1800 [facility] Last Infusion: 08/14/19 05:43 Dose: Infused Documented by: Fentanyl () 100 mls @ 5 mls/hr IV UD [facility]; Protocol Last Titration: 08/14/19 05:30 Dose: 75 mcg/hr, 7.5 mls/hr Documented by: Propofol (Diprivan) 1,000 mg in 100 mls @ 5.91 mls/hr CONT INF .Q12H [facility]; Protocol Last Titration: 08/14/19 06:15 Dose: 15 mcg/kg/min, 8.9 mls/hr Documented by: Levothyroxine Sodium (Synthroid) 100 mcg PO DAILY [facility] Last Admin: 08/13/19 10:03 Dose: 100 mcg Documented by: Ondansetron HCl (Zofran) 4 mg IV Q8H PRN PRN PRN Reason: NAUSEA/VOMITING Phenytoin Sodium (Dilantin) 200 mg PO DAILY [facility] Last Admin: 08/13/19 11:00 Dose: 200 mg Documented by: Sodium Chloride () 10 - 40 ml IV UD PRN PRN Reason: SALINE FLUSH Last Admin: 08/14/19 06:17 Dose: 40 ml Documented by: STROKE Vital Signs/Narrative: Vital Signs Temp Pulse Resp BP Pulse Ox 08/14/19 06:45 102.2 F H 64 30 H 93/45 L 98 08/14/19 06:30 102.7 F H 64 29 H 93/46 L 99 08/14/19 06:15 102.8 F H 70 32 H 82/52 L 99 08/14/19 06:00 102.7 F H 80 30 H 92/54 L 99 08/14/19 05:45 102.3 F H 82 26 H 93/55 L 99 08/14/19 05:30 97 21 H 109/62 99 08/14/19 05:03 99 36 H 99 08/14/19 05:00 130 H 32 H 183/112 H 76 08/14/19 04:00 94 30 H 155/89 H 86 Medical Necessity - Tobacco Use Smoking Status: Never smoker Assessment/Plan All Active Problems (Last Reviewed 08/13/19 @ 01:[address] Matt Espinoza MD) Pneumonia (Acute) Hypoxia (Acute) COVID-19 (Acute) SARS-associated coronavirus infection (Acute) The patient is a 79 y/o M w/ PMHx: HTN, Hypothyroidism, Seizure disorder who presents to the [facility] ED on 08/13/19 with history of dyspnea, mildly productive cough, fever and chills. 1. Acute hypoxic respiratory failure with Bilateral Pneumonia secondary to Acute Viral Syndrome, COVID-19: ED evaluation initially with CBC with WC 6.4, h emoglobin 13.6, platelet 523 with no evidence of left shift but noted lymphopenia, d-dimer 1.57, lactic acid 1.7, CMP not market appearing aside sodium 132, AST 56/ALT 48, ferritin 1156, troponin less than 0.015, BNP 48.9, pro calcitonin 0.08, urinalysis with evidence of dehydration but no obvious UTI patient admitted to the ICU given severity of presentation, respiratory decline 08/14/2019 a.m. following overnight attempts to transition from Airvo to BIPAP given patient intolerance, but continued ongoing desaturations prompting 08/14/2019 early a.m. intubation, dehydrogenation converter helper consulted and following, continue Zosyn therapy with de-escalation off vancomycin given negative MRSA screen per infectious disease recommendation, continue therapeutic Lovenox, vent management per dehydrogenation converter helper with plan to wean FiO2 and PEEP to maintain oxygenation >/= 90%, continue to trend CBC, CMP, infectious disease consulted and following. 2. Seizure disorder: Continue patient home Dilantin regimen. 3. Hypothyroidism: Continue home synthroid regimen, TSH pending. 4. GERD continue famotidine. 5. DVT prophylaxis: SCDs, continue therapeutic Lovenox. 6. CODE STATUS: Full code. Inpatient E&M: 24149 Subs Hosp L3
--- NOTE | 2019-08-14 07:54 | RAD_ITS ---
STUDY: X-RAY CHEST REASON FOR EXAM: Male, 79 years old patient presents for evaluation after adjustment of endotracheal and nasogastric tubes. TECHNIQUE: Two AP portable views of the chest. COMPARISON: August 14, 2019 time stamped 5:34 AM. FINDINGS: The tip of endotracheal tube has been repositioned such that the tip is now located 4.5 cm proximal to the syd. Enteric tube is present with the distal and probably the distal stomach. The lungs are expanded. There are multiple multifocal areas of airspace consolidation throughout both lungs. The densest airspace disease appears to be at the left lung base. There appears to be small left-sided pleural effusion. There is mild cardiac enlargement. Normal mediastinum and dane. Normal visualized pulmonary arteries. Normal visualized aortic arch and descending thoracic aorta. There are diffuse degenerative changes of the visualized thoracic spine. There are degenerative changes of both shoulders. There is no demonstrated abnormality of the visualized soft tissue structures of the upper abdomen. RAD/Chest 1 View (Portable) IMPRESSION: 1. Appropriate positioning of endotracheal and enteric tubes. 2. Extensive bilateral heterogeneous airspace consolidations consistent with multifocal pneumonia. There appears to be increasing left basilar airspace consolidation since previous radiograph. Electronically Signed: Shamika Mistry MD at 9:58 EDT , Service support ,
[2019-08-14 08:08] LABS: CPK Total, Creatine Kinase 308 U/L (39-308); Triglycerides 114 mg/dL
[2019-08-14 08:26] LABS: Base Excess -3 mmol/L (-2 to +2); Bicarbonate 21.2 mmol/L (22-26); PO2 47 mmHG (75-100); SO2 85 % (95-99); Total Carbon Dioxide 22 mmol/L; pCO2 29.9 mmHg (35-45); pH 7.46 (7.35-7.45)
[2019-08-14 08:33] LABS: Blood Gas Specimen Type VEN; Mode A-C; O2 Delivery Device Vent; SITE R RADIAL
[2019-08-14 08:34] LABS: FI02 100; PEEP 10; RR 14; Time Given 729; Vt 450
--- NOTE | 2019-08-14 09:26 | PCM.NTREPORT ---
Nutrition Therapy Report - History Nutrition Services has been consulted to:: Manage enteral nutrition Current diet / nutrition support order:: cardiac/low cholesterol - Anthropometric Measurements Height:: 5 ft 10.08 in Weight:: 98.5 kg Body Mass Index (BMI):: 31.1 - Relevant Labs Relevant Labs:: RBC 3.79 M/mm3 (4.6-6.2) L 08/13/19 05:05 Hct 38.1 % (40-54) L 08/13/19 05:05 MCV 100.5 fL (80-94) H 08/13/19 05:05 MCH 34.6 pg (27.0-32.0) H 08/13/19 05:05 RDW Std Deviation 53.2 fl (35.1-43.9) H 08/13/19 05:05 Plt Count 455 K/mm3 (150-450) H 08/13/19 05:05 Neut % (Auto) 94.2 % (47-70) H 08/13/19 05:05 Lymph % (Auto) 2.9 % (19-41) L 08/13/19 05:05 Absolute Lymphs (auto) 0.22 X10^3/uL (0.83-4.51) L 08/13/19 05:05 PT 17.5 SECONDS (11.7-14.9) H 08/12/19 21:34 APTT 44.5 Seconds (24.1-36.2) H 08/12/19 21:34 D-Dimer Quant (PE/DVT) 1.27 FEU/ug/m (0.27-0.49) H* 08/14/19 03:25 Sodium 132 mmol/L (136-145) L 08/14/19 03:25 BUN 27 mg/dL (7-18) H 08/14/19 03:25 Creatinine 1.34 mg/dL (0.70-1.30) H 08/14/19 03:25 Est GFR (MDRD) Non-Af 55 mL/min (>60) L 08/14/19 03:25 BUN/Creatinine Ratio 20.1 RATIO (10-20) H 08/14/19 03:25 Glucose 127 mg/dL (74-106) H 08/14/19 03:25 Calcium 8.1 mg/dL (8.5-10.1) L 08/14/19 03:25 Ferritin 1301 ng/mL (26-388) H 08/14/19 03:25 AST 69 U/L (15-37) H 08/14/19 03:25 Albumin 2.5 g/dL (3.2-5.0) L 08/14/19 03:25 Albumin/Globulin Ratio 0.6 RATIO (0.9-2.4) L 08/14/19 03:25 - Assessment Food / Nutrition-Related History:: Discussed in ICU rounds. Intubated w/ OG in place. Stable wt since last review. Has BUE non-pitting and BLE 1+ pitting edema per nursing documentation. Per rounds, okay for tube feeds this date. - Nutrition Diagnosis Problem / Etiology / Signs & Symptoms (PES):: Inadequate oral intake related to respiratory status/intubation as evidenced by no PO intake >24 hours. Evidence of Malnutrition Exists:: No - Nutrition Intervention Nutrition Prescription:: Re-estimated nutritional needs using ASPEN guidelines for critically ill obese patients. Will use 22-25 calories/kg/IBW (75kg) and 1.2 g protein/kg CBW (98.5kg) = 5420-2394 calories/day, 110-120 g protein/day. - Food / Nutrient Delivery Interventions Summary of nutrition intervention:: Will order enteral nutrition support; will change diet to NPO Nutrition support ordered as / adjusted to:: enteral nutrition support via OG- Vital AF 1.2 at goal rate of 65mL/hour w/ 75mL H2O flush every 4 hours to provide 1872 calories, 117 g protein, and 1715mL total fluid/day. Would start tube feeds at 25mL/hour and increase by 10mL every 8 hours as pt tolerates until goal rate achieved. Nutrition education provided?: No - MNT Monitoring Further MNT monitoring and evaluation required?: Yes MNT Follow-up in:: 1-2 days
[2019-08-14] MEDS: Vital AF 1.2 Cal Liquid 1,000 ML 65 ML GT (10:58)
[2019-08-14] MEDS: guaiFENesin 10 ML UDC (200MG/10ML) GT ×2 (10:59→16:47)
[2019-08-14] MEDS: Chlorhexidine 15 ML PO ×2 (10:59→20:29)
[2019-08-14] MEDS: Enoxaparin 100 MG/ML Syringe SC ×2 (11:00→20:30)
[2019-08-14] MEDS: Famotidine 20 MG Tablet GT ×2 (11:00→20:30)
[2019-08-14] MEDS: Acetaminophen 650 MG/20 ML UDC GT ×3 (11:00→20:26)
[2019-08-14] MEDS: fentaNYL drip 100 ML 15 MCG IV (11:00)
[2019-08-14] MEDS: Phenytoin Na 100 MG/4 ML UDC 200 MG GT (11:00)
[2019-08-14] MEDS: Levothyroxine 100 MCG Tablet GT (11:00)
[2019-08-14] MEDS: Propofol 10MG/Ml 1,000 MG/100 ML Bottle 17.7 MG CONT INF ×3 (13:15→18:00)
[2019-08-14 15:26] LABS: Base Excess -4 mmol/L (-2 to +2); Bicarbonate 22.4 mmol/L (22-26); PO2 42 mmHG (75-100); SO2 70 % (95-99); Total Carbon Dioxide 24 mmol/L; pCO2 48.9 mmHg (35-45); pH 7.27 (7.35-7.45)
[2019-08-14 15:31] LABS: Blood Gas Specimen Type ART; FI02 100; Mode A-C; O2 Delivery Device Vent; PEEP 15; RR 14; SITE L RADIAL; Vt 450
[2019-08-14 15:33] LABS: Time Given 1427
[2019-08-14] MEDS: fentaNYL drip 100 ML 20 MCG IV (16:30)
[2019-08-14] MEDS: Propofol 10MG/Ml 1,000 MG/100 ML Bottle 14.8 MG CONT INF (22:05)
[2019-08-14] MEDS: fentaNYL drip 100 ML 17.5 MCG IV (22:05)
[2019-08-15] VITALS (66 sets, daily range): BP systolic 84–173; BP diastolic 40–68; PULSE 68–100; RESP 14–21; TEMP 37.7–38.8; O2SAT 88–96
[2019-08-15] MEDS: guaiFENesin 10 ML UDC (200MG/10ML) GT ×4 (00:30→17:12)
[2019-08-15] MEDS: Acetaminophen 650 MG/20 ML UDC GT ×4 (00:31→17:12)
[2019-08-15 03:31] LABS: Bedside Glucose 161 mg/dL (70-110)
[2019-08-15 04:26] LABS: Absolute Lymphocyte Count 0.32 X10^3/uL (0.83-4.51); Absolute Neutrophil Count 10.4 X10^3/uL (2.0-7.7); Basophil# 0.03 X10^3/uL; Basophil% 0.3 % (0-1); Eosinophil# 0.02 X10^3/uL; Eosinophils% 0.2 % (0-5); Hematocrit 40.7 % (40-54); Hemoglobin 13.1 g/dL (13.0-16.5); Lymphocyte # 0.32 X10^3/ul (4.0); Lymphocyte % 2.9 % (19-41); Mean Corp Hgb Conc 32.2 g/dL (32-36); Mean Corpuscular Hgb 34.4 pg (27.0-32.0); Mean Corpuscular Volume 106.8 fL (80-94); Mean Platelet Vol. 9.1 fl (6.2-12.0); Monocyte# 0.27 X10^3/uL; Monocyte% 2.4 % (0-10); NRBC Flagged by Analyzer 0 % (0-5); Neutrophil # 10.36 X10^3/uL (2.7-7.7); Neutrophil % 92.8 % (47-70); POSITIVE DIFFERENTIAL YES; Platelet Count 631 K/mm3 (150-450); RBC Distribution Width CV 15.7 % (11.6-14.6); RBC Distribution Width SD 62.4 fl (35.1-43.9); Red Blood Count 3.81 M/mm3 (4.6-6.2); White Blood Count 11.2 K/mm3 (4.4-11.0)
[2019-08-15 04:27] LABS: Differential Indicated SCAN CRITERIA MET
[2019-08-15 04:36] LABS: Differential Comment SCANNED
[2019-08-15 04:42] LABS: BNP,B-Type NATRIURETIC PEPTIDE 498.4 pg/mL (0-100)
[2019-08-15 04:50] LABS: ALB/GLOB Ratio 0.5 RATIO (0.9-2.4); AST(SGOT) 52 U/L (15-37); Alanine Aminotransfer ALT/SGPT 39 U/L (16-61); Albumin, Serum 2.1 g/dL (3.2-5.0); Alkaline Phosphatase 68 U/L (45-117); Anion Gap 6 (5-15); BUN 39 mg/dL (7-18); BUN/Creat Ratio 19.7 RATIO (10-20); Calcium,Total 7.8 mg/dL (8.5-10.1); Chloride 102 mmol/L (98-107); Creatinine, Serum 1.98 mg/dL (0.70-1.30); EST Glomerular Filtration Rate 35 mL/min (>60); Est Glom Filt Rate - Afr Amer 42 mL/min (>60); Estimated Creatinine Clearance 31.75 ml/min; Ferritin 1494 ng/mL (26-388); Glucose 163 mg/dL (74-106); Potassium 4.7 mmol/L (3.5-5.1); Protein, Total 6.1 g/dL (6.4-8.2); Sodium Level 133 mmol/L (136-145)
[2019-08-15 04:51] LABS: Procalcitonin 2.09 ng/mL (0.00-0.09)
[2019-08-15] MEDS: fentaNYL drip 100 ML 15 MCG IV (05:00)
--- NOTE | 2019-08-15 05:59 | PCM.PN.INT ---
Subjective: The patient was seen and examined at the bedside this morning. Events from the last 24 hours have been reviewed. The patient remains febrile. However, fever curve appears to be overall improving. The patient is hemodynamically stable. Although still with high ventilator requirements, the patient's oxygenation status has improved since being started on cis atracurium yesterday. He remains on assist control mode of mechanical ventilation with an FiO2 requirement of 60% and PEEP of 10. Creatinine has increased to 1.98. The patient was also noted to have an elevated troponin this morning to 1.89 with an elevated BNP to 498. The patient is currently documented to be overall net +3.4 L for the hospital admission. Objective: The patient's most recent lab work, culture data and imaging studies have all been personally reviewed. CTA chest revealed suboptimal opacification of the bilateral pulmonary arteries. No significant PE was identified. However, bilateral groundglass changes were present, most pronounced in the right lower lobe. Coronavirus PCR was positive on August 06. Respiratory viral panel was negative. Strep and urine Legionella antigens were negative. General: - - Intubated, sedated and mechanically ventilated. HEENT: Atraumatic, Normocephalic Oral: No Gingival or Mucosal Lesions/ Ulcerations, - - Stable endotracheal and OG tubes. 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 The patient remains sedated on the vent. Vital Signs Temp Pulse Resp BP Pulse Ox 100.7 F H 72 17 110/51 L 95 08/15/19 05:13 08/15/19 05:13 08/15/19 05:13 08/15/19 05:13 08/15/19 05:13 Oxygen Flow Rate (L/min) 60 Oxygen Delivery Method Mechanical Ventilator Weight: 219 lb 12.814 oz Body Mass Index (BMI) 31.1 Intake and Output for Last 24 Hours 08/13/19 08/14/19 08/15/19 23:59 23:59 23:59 Intake Total 2445 / 2685 2070.50 / 2408.25 722.58 / 722.58 Output Total 925 / 1200 700 / 950 250 / 250 Balance 1520 / 1485 1370.50 / 1458.25 472.58 / 472.58 Labs (Last 48 Hours) 08/13/19 08/13/19 08/13/19 05:05 06:45 08:45 WBC RBC Hgb Hct MCV MCH MCHC RDW Std Deviation RDW Coeff of Nacho Plt Count MPV Immature Gran % (Auto) Neut % (Auto) Lymph % (Auto) [place] % (Auto) Eos % (Auto) Baso % (Auto) Absolute Neuts (auto) Absolute Lymphs (auto) Nucleated RBC % Differential Comment D-Dimer Quant (PE/DVT) Specimen Type Sample Site pH Bicarbonate Actual POC Total CO2 Base Excess O2 Saturation O2 % ABG pCO2 ABG pO2 Oziel Test Respiration Rate O2 Delivery Device Vent Mode Tidal Volume POC PEEP EPAP IPAP Blood Gas Notified Whom Blood Gas Notified Time Sodium Potassium Chloride Carbon Dioxide Anion Gap BUN Creatinine Estim Creat Clear Calc Est GFR (MDRD) Af Amer Est GFR (MDRD) Non-Af BUN/Creatinine Ratio Glucose Calcium Magnesium Ferritin Total Bilirubin AST ALT Alkaline Phosphatase Total Creatine Kinase Troponin I C-React Prot Ext Range B-Natriuretic Peptide 48.9 Total Protein Albumin Globulin Albumin/Globulin Ratio Triglycerides Procalcitonin MRSA (PCR) Negative POC Glucose Blood Type A NEGATIVE Antibody Screen NEGATIVE 08/14/19 08/14/19 08/14/19 01:52 03:25 03:25 WBC RBC Hgb Hct MCV MCH MCHC RDW Std Deviation RDW Coeff of Nacho Plt Count MPV Immature Gran % (Auto) Neut % (Auto) Lymph % (Auto) [place] % (Auto) Eos % (Auto) Baso % (Auto) Absolute Neuts (auto) Absolute Lymphs (auto) Nucleated RBC % Differential Comment D-Dimer Quant (PE/DVT) 1.27 H* Specimen Type ART Sample Site L RADIAL pH 7.46 H Bicarbonate Actual 20.4 L POC Total CO2 21 Base Excess -4 L O2 Saturation 92 L O2 % 60 ABG pCO2 28.8 L ABG pO2 60 L Oziel Test POS Respiration Rate O2 Delivery Device Bi Pap Vent Mode Tidal Volume POC PEEP EPAP 8 IPAP 12 Blood Gas Notified Whom HOSP Blood Gas Notified Time 152 Sodium 132 L Potassium 4.1 Chloride 99 Carbon Dioxide 24.0 Anion Gap 9 BUN 27 H Creatinine 1.34 H Estim Creat Clear Calc 46.91 Est GFR (MDRD) Af Amer 66 Est GFR (MDRD) Non-Af 55 L BUN/Creatinine Ratio 20.1 H Glucose 127 H Calcium 8.1 L Magnesium 2.1 Ferritin 1301 H Total Bilirubin 0.80 AST 69 H ALT 49 Alkaline Phosphatase 68 Total Creatine Kinase Troponin I C-React Prot Ext Range B-Natriuretic Peptide Total Protein 6.4 Albumin 2.5 L Globulin 3.9 Albumin/Globulin Ratio 0.6 L Triglycerides Procalcitonin MRSA (PCR) POC Glucose Blood Type Antibody Screen 08/14/19 08/14/19 08/14/19 03:25 07:29 14:27 WBC RBC Hgb Hct MCV MCH MCHC RDW Std Deviation RDW Coeff of Nacho Plt Count MPV Immature Gran % (Auto) Neut % (Auto) Lymph % (Auto) [place] % (Auto) Eos % (Auto) Baso % (Auto) Absolute Neuts (auto) Absolute Lymphs (auto) Nucleated RBC % Differential Comment D-Dimer Quant (PE/DVT) Specimen Type SOURAV ART Sample Site R RADIAL L RADIAL pH 7.46 H 7.27 L Bicarbonate Actual 21.2 L 22.4 POC Total CO2 22 24 Base Excess -3 L -4 L O2 Saturation 85 L 70 L O2 % 100 100 ABG pCO2 29.9 L 48.9 H ABG pO2 47 L 42 L Oziel Test NA NA Respiration Rate 14 14 O2 Delivery Device Vent Vent Vent Mode A-C A-C Tidal Volume 450 450 POC PEEP 10 15 EPAP IPAP Blood Gas Notified Whom ICU ICU Blood Gas Notified Time 830 5167 Sodium Potassium Chloride Carbon Dioxide Anion Gap BUN Creatinine Estim Creat Clear Calc Est GFR (MDRD) Af Amer Est GFR (MDRD) Non-Af BUN/Creatinine Ratio Glucose Calcium Magnesium Ferritin Total Bilirubin AST ALT Alkaline Phosphatase Total Creatine Kinase 308 Troponin I C-React Prot Ext Range B-Natriuretic Peptide Total Protein Albumin Globulin Albumin/Globulin Ratio Triglycerides 114 Procalcitonin MRSA (PCR) POC Glucose Blood Type Antibody Screen 08/15/19 08/15/19 08/15/19 02:13 03:55 03:55 WBC 11.2 H RBC 3.81 L Hgb 13.1 Hct 40.7 MCV 106.8 H D MCH 34.4 H MCHC 32.2 D RDW Std Deviation 62.4 H RDW Coeff of Nacho 15.7 H Plt Count 631 H MPV 9.1 Immature Gran % (Auto) 1.400 H Neut % (Auto) 92.8 H Lymph % (Auto) 2.9 L [place] % (Auto) 2.4 Eos % (Auto) 0.2 Baso % (Auto) 0.3 Absolute Neuts (auto) 10.4 H Absolute Lymphs (auto) 0.32 L Nucleated RBC % 0 Differential Comment SCANNED D-Dimer Quant (PE/DVT) Specimen Type Sample Site pH Bicarbonate Actual POC Total CO2 Base Excess O2 Saturation O2 % ABG pCO2 ABG pO2 Oziel Test Respiration Rate O2 Delivery Device Vent Mode Tidal Volume POC PEEP EPAP IPAP Blood Gas Notified Whom Blood Gas Notified Time Sodium 133 L Potassium 4.7 Chloride 102 Carbon Dioxide 25.0 Anion Gap 6 BUN 39 H Creatinine 1.98 H Estim Creat Clear Calc 31.75 Est GFR (MDRD) Af Amer 42 L Est GFR (MDRD) Non-Af 35 L BUN/Creatinine Ratio 19.7 Glucose 163 H Calcium 7.8 L Magnesium Ferritin 1494 H Total Bilirubin 0.40 AST 52 H ALT 39 Alkaline Phosphatase 68 Total Creatine Kinase Troponin I 1.890 H* C-React Prot Ext Range 319.00 H B-Natriuretic Peptide Total Protein 6.1 L Albumin 2.1 L Globulin 4.0 Albumin/Globulin Ratio 0.5 L Triglycerides Procalcitonin MRSA (PCR) POC Glucose 161 H Blood Type Antibody Screen 08/15/19 08/15/19 03:55 03:55 WBC RBC Hgb Hct MCV MCH MCHC RDW Std Deviation RDW Coeff of Nacho Plt Count MPV Immature Gran % (Auto) Neut % (Auto) Lymph % (Auto) [place] % (Auto) Eos % (Auto) Baso % (Auto) Absolute Neuts (auto) Absolute Lymphs (auto) Nucleated RBC % Differential Comment D-Dimer Quant (PE/DVT) Specimen Type Sample Site pH Bicarbonate Actual POC Total CO2 Base Excess O2 Saturation O2 % ABG pCO2 ABG pO2 Oziel Test Respiration Rate O2 Delivery Device Vent Mode Tidal Volume POC PEEP EPAP IPAP Blood Gas Notified Whom Blood Gas Notified Time Sodium Potassium Chloride Carbon Dioxide Anion Gap BUN Creatinine Estim Creat Clear Calc Est GFR (MDRD) Af Amer Est GFR (MDRD) Non-Af BUN/Creatinine Ratio Glucose Calcium Magnesium Ferritin Total Bilirubin AST ALT Alkaline Phosphatase Total Creatine Kinase Troponin I C-React Prot Ext Range B-Natriuretic Peptide 498.4 H Total Protein Albumin Globulin Albumin/Globulin Ratio Triglycerides Procalcitonin 2.09 H MRSA (PCR) POC Glucose Blood Type Antibody Screen Microbiology 08/13/19 08:40 Sputum, Expectorated/Coughed Gram Stain - Final 08/13/19 08:40 Sputum, Expectorated/Coughed Respiratory Culture - Preliminary Appears to be normal respiratory maggi. Further studies to follow. 08/12/19 23:30 Urine, Clean Catch Streptococcus pneumoniae Antigen (M - Final 08/12/19 23:30 Urine, Clean Catch Legionella Antigen - Final Clinical Impression(s) from Imaging Studies Chest X-Ray 08/12/19 22:50 IMPRESSION: Worsening of bilateral pulmonary infiltrates consistent with nonspecific multifocal pneumonia. Electronically Signed: Eriberto Smalls MD at 23:13 EDT , Service support , Chest X-Ray 08/14/19 05:20 IMPRESSION: 1. Suggest advancing endotracheal tube approximately 2 or 3 cm. 2. Unchanged appearance to bilateral multifocal airspace disease consistent with pneumonia. Electronically Signed: Shamika Mistry MD at 8:34 EDT , Service support , Chest X-Ray 08/14/19 07:54 IMPRESSION: 1. Appropriate positioning of endotracheal and enteric tubes. 2. Extensive bilateral heterogeneous airspace consolidations consistent with multifocal pneumonia. There appears to be increasing left basilar airspace consolidation since previous radiograph. Electronically Signed: Shamika Mistry MD at 9:58 EDT , Service support , Medical Necessity - Tobacco Use Smoking Status: Never smoker Assessment/Plan All Active Problems (Last Reviewed 08/13/19 @ 01:[address] Matt Espinoza MD) Pneumonia (Acute) Hypoxia (Acute) COVID-19 (Acute) SARS-associated coronavirus infection (Acute) RECOMMENDATIONS: 1. Continue to wean FiO2 and PEEP to maintain oxygen saturations at or above 90%. 2. Continue empiric antimicrobials. 3. Continue therapeutic Lovenox. 4. Continue tube feeds as tolerated. 5. Trend troponins and obtain echocardiogram. 6. Consider initiation of gentle diuresis as tolerated by hemodynamics and renal function. 7. Continue appropriate GI prophylaxis. 8. Continue Nimbex. If the patient continues to improve clinically over the next 24 hours, consider lifting paralytics tomorrow. IMPRESSIONS: 1. Acute hypoxemic respiratory failure secondary to COVID-19 infection The patient was recently evaluated in the emergency department on August 06 with a CTA chest which revealed bilateral groundglass changes. Subsequent COVID testing was positive. Although the patient was initially discharged home, he experienced worsening shortness of breath and hypoxemia, which prompted his hospital admission. Repeat chest imaging did reveal progressive bilateral infiltrates. The patient was initially placed on noninvasive positive pressure ventilatory support but decompensated over the ensuing 24 hours. The patient did receive convalescent [place] ([place] [id number]) on the evening of August 12. He unfortunately did have to be intubated on the morning of August 13. The patient's ventilator requirements have improved since being started on Nimbex. Plan to continue to wean FiO2 and PEEP to maintain oxygen saturations at or above 90%. If the patient continues to improve clinically, paralytic therapy can likely be lifted tomorrow. The patient will be continued on empiric antimicrobials per infectious diseases recommendations. In addition, the patient will remain on therapeutic dose Lovenox as well. Tube feeds will be continued as tolerated. 2. Acute kidney injury Likely related to ATN in the setting of #1, along with hemodynamic instability which was generated as a consequence of sedative utilization. Low-dose Levophed has been utilized to stabilize hemodynamics. Continue to monitor urine output. No current indication for renal replacement therapy. Avoid nephrotoxic medications. 3. Troponin elevation Given the cardiac implications associated with COVID infections, will obtain echocardiogram and trend troponins. Based on results, cardiology consultation may need to be obtained. 4. Unspecified seizure disorder/hypothyroidism/hypertension/obesity Complicates care, management, recovery and prognosis. Continue home medications as indicated. TIME: 39 minutes of critical care time, independent of procedures, was spent addressing the patient's acute hypoxemic respiratory failure secondary to COVID-19 infection, acute kidney injury, troponin elevation, review of all data and collaboration with the care team. ([id number]) [phone]: [id number] Critical care first hour
--- NOTE | 2019-08-15 06:01 | ECHOD_ITS ---
Reason For Study: DYSPNEA/SOB Procedure This was a 2D Doppler, Color Flow transthoracic echocardiogram. The study was technically difficult. Exam performed portable in ICU/CCU. The exam was abbreviated due to the COVID 19 protocol. Left Ventricle Normal LV size. Left ventricular systolic function is normal. The estimated ejection fraction is 65 %. No evidence for diastolic dysfunction. Right Ventricle Normal RV size. Normal systolic function. Atria Normal left atrium. Normal right atrium. No doppler evidence for ASD. Mitral Valve There is mild mitral annular calcification. Extension of the mitral annular calcification onto the base of the posterior mitral valve leaflet. Trivial mitral valve insufficiency. Tricuspid Valve The tricuspid valve is not well visualized. Trivial tricuspid valve insufficiency. Right ventricular systolic pressure estimated to be 23 mmHg. Aortic Valve Trisinus/trileaflet aortic valve. Mild focal aortic valve thickening. Pulmonic Valve The pulmonic valve is not well visualized. Trivial pulmonic valve insufficiency. Great Vessels Normal sized aortic root. Pericardium/Pleural No pericardial effusion. MMode/2D Measurements & Calculations LVIDd: 4.8 cm IVSd: 1.1 cm Ao root diam: 3.9 cm LVIDs: 3.5 cm LVPWd: 1.0 cm LA dimension: 3.6 cm RVDd: 3.6 cm FS: 27.8 % LAV(MOD-bp): 37.8 ml LA A4 area: 12.2 cm2 RA A4 area: 10.1 cm2 LAV(MOD-bp) Indexed: 17.4 ml/m2 LAV(MOD-sp2): 46.0 ml LAV(MOD-sp4): 27.4 ml Doppler Measurements & Calculations MV E max santana: 67.8 cm/sec Lat Peak E' Santana: 12.3 cm/sec Med Peak E' Santana: 11.3 cm/sec MV A max santana: 90.1 cm/sec E/E' lat: 5.5 E/E' med: 6.0 MV E/A: 0.75 Ao V2 max: 222.4 cm/sec LV V1 max: 174.8 cm/sec PA V2 max: 123.3 cm/sec Ao max P.8 mmHg LV V1 max P.2 mmHg Ao V2 mean: 148.1 cm/sec LV V1 mean P.6 mmHg Ao mean P.9 mmHg LV V1 mean: 132.0 cm/sec Ao V2 VTI: 31.8 cm LV V1 VTI: 29.2 cm TR max santana: 195.5 cm/sec TR max P.3 mmHg Interpretation Summary The study was technically difficult. Left ventricular systolic function is normal. The estimated ejection fraction is 65 %. There is mild mitral annular calcification. Extension of the mitral annular calcification onto the base of the posterior mitral valve leaflet. Trivial mitral valve insufficiency. Trivial tricuspid valve insufficiency. Mild focal aortic valve thickening. Trivial pulmonic valve insufficiency. Right ventricular systolic pressure estimated to be 23 mmHg. No evidence for diastolic dysfunction. Ordering Physician: Julio C Navarro Referring Physician: Sagar Kent Performed By: Geri Pretty, MARTINEZ, RVT
--- NOTE | 2019-08-15 06:42 | PCM.PN.HOSP ---
Patient Problems: Active and Suspected Problems (Last Reviewed 08/13/19 @ 01:[address] Matt Espinoza MD) Pneumonia (Acute) Hypoxia (Acute) COVID-19 (Acute) SARS-associated coronavirus infection (Acute) Subjective: The patient is a 79 y/o M w/ PMHx: HTN, Hypothyroidism, Seizure disorder who [facility] with history of dyspnea, mildly productive cough, fever and chills. 08/07/19 + COVID testing. ED evaluation initially with CBC with WBC 6.4, hemoglobin 13.6, platelet 523 with no evidence of left shift but noted lymphopenia, d-dimer 1.57, lactic acid 1.7, CMP not market appearing aside sodium 132, AST 56/ALT 48, ferritin 1156, troponin less than 0.015, BNP 48.9, procalcitonin 0.08, urinalysis with evidence of dehydration but no obvious UTI patient admitted to the ICU given severity of presentation, respiratory decline 08/14/2019 a.m. following overnight attempts to transition from Airvo to BIPAP given patient intolerance, but continued ongoing desaturations prompting 08/14/2019 early a.m. intubation, software project manager consulted and following, continue Zosyn therapy with de-escalation off vancomycin given negative MRSA screen per infectious disease recommendation, continue therapeutic Lovenox, vent management per software project manager with plan to wean FiO2 and PEEP to maintain oxygenation >/= 90%. 08/14/19 paralyzed with ability to decrease vent settings to 60% FiO2 and 10 PEEP. 08/15/19 labs w/ CMP with BUN/creatinine 39/1.98, ferritin 1494, AST/ALT 52/39, troponin I 0.890, CRP 319, BNP 498.4 with judicious diuresis per ICU physician discretion given ARDS concerns, pro calcitonin 2.09. EKG in ED w/ sinus rhythm with no acute evidence of ischemia, continued plan for cardiac trending, repeat EKGs, echocardiogram requested, continued on therapeutic Lovenox with initiation of aspirin therapy. FLP in AM. Magnesium 2.1. Once clinically appropriate may consider cardiology consultation. Acute kidney injury secondary to acute presentation and usage of lasix w/ admission BUN/Cr 26/1.21, prior baseline creatinine noted to be 1.0-1.1 BUN/creatinine 39/1.98, worsening. Of note administered Convalescent plasma x 1. Patient with ongoing fevers although hemodynamically stable with continued ventilator status with initiation on 08/14/2019 of paralytics in addition to patient's sedation with improvement of vent settings to FiO2 of 60% and PEEP of 10. Unfortunately patient's renal function increased with BUN/creatinine 39/1.98 and patient's cardiac enzyme increased to 1.890 with requested echocardiogram and cardiac enzyme trending to continue with initiation of therapeutic Lovenox going and aspirin therapy initiated. Patient without evidence of nausea, emesis, abdominal pain however difficult assessment given paralyzed and sedated. Objective: Physical Examination: General: Patient intubated and sedated, paralyzed, unable to answer orientation questions, currently no evidence of any distress, coated in droplets of sweat. Skin: normal color, turgor, no icterus, cyanosis. HEENT: AT/NC, EOM unable to be assessed given sedated status, PERRLA, dry MM, ETT in place. Lungs: Diminished breath sounds bilaterally, intubated and sedated with symmetric rise, no rales, ronchi or wheezing. Heart: Regular rate and rhythm; no gallop, rub audible. Abdomen: soft, obese, NTTP, mildly distended appearance, mildly hyperactive BS. Extremities: no cyanosis, clubbing, mild bilateral hand edema, non-pitting. Neurological: Patient intubated and sedated, not responsive, unable to answer orientation questions, currently no evidence of any distress; cognitive function not baseline intact; pupils equally reactive to light and accomodation but sluggish given sedation; cranial nerves unable to be assessed well given sedated, intubated status, currently no movement to painful stimuli given sedated and paralyzed, strength severely global decreased given sedation and acute presentation. Psychiatric: affect appears flat, sedated, no acute evidence of depressive or anxiety feelings. Vitals/I&O's: Vital Signs Temp Pulse Resp BP Pulse Ox 101.2 F H 80 18 145/63 H 94 08/15/19 06:00 08/15/19 06:00 08/15/19 06:00 08/15/19 06:15 08/15/19 06:00 Oxygen Flow Rate (L/min) 60 Oxygen Delivery Method Mechanical Ventilator Weight: 219 lb 12.814 oz Body Mass Index (BMI) 31.1 Intake and Output for Last 24 Hours 08/13/19 08/14/19 08/15/19 23:59 23:59 23:59 Intake Total 2445 / 2685 2070.50 / 2408.25 1161.50 / 1161.50 Output Total 925 / 1200 700 / 950 500 / 500 Balance 1520 / 1485 1370.50 / 1458.25 661.50 / 661.50 Microbiology Past 72 Hours 08/12/19 21:37 Blood Culture (Wb) - Anticubital Right Blood Culture - Preliminary No growth in 48 hours. 08/12/19 21:34 Blood Culture (Wb) - Anticubital Left Blood Culture - Preliminary No growth in 48 hours. 08/13/19 08:40 Sputum, Expectorated/Coughed Gram Stain - Final 08/13/19 08:40 Sputum, Expectorated/Coughed Respiratory Culture - Preliminary Appears to be normal respiratory maggi. Further studies to follow. 08/12/19 23:30 Urine, Clean Catch Streptococcus pneumoniae Antigen (M - Final 08/12/19 23:30 Urine, Clean Catch Legionella Antigen - Final Laboratory Results 08/14/19 03:25: Total Creatine Kinase 308, Triglycerides 114 08/14/19 07:29: Specimen Type SOURAV, Sample Site R RADIAL, pH 7.46 H, Bicarbonate Actual 21.2 L, POC Total CO2 22, Base Excess -3 L, O2 Saturation 85 L, O2 % 100, ABG pCO2 29.9 L, ABG pO2 47 L, Oziel Test NA, Respiration Rate 14, O2 Delivery Device Vent, Vent Mode A-C, Tidal Volume 450, POC PEEP 10, Blood Gas Notified Whom ICU , Blood Gas Notified Time 729 08/14/19 14:27: Specimen Type ART, Sample Site L RADIAL, pH 7.27 L, Bicarbonate Actual 22.4, POC Total CO2 24, Base Excess -4 L, O2 Saturation 70 L, O2 % 100, ABG pCO2 48.9 H, ABG pO2 42 L, Oziel Test NA, Respiration Rate 14, O2 Delivery Device Vent, Vent Mode A-C, Tidal Volume 450, POC PEEP 15, Blood Gas Notified Whom ICU , Blood Gas Notified Time 1427 08/15/19 02:13: POC Glucose 161 H 08/15/19 03:55: Sodium 133 L, Potassium 4.7, Chloride 102, Carbon Dioxide 25.0, Anion Gap 6, BUN 39 H, Creatinine 1.98 H, Estim Creat Clear Calc 31.75, Est GFR (MDRD) Af Amer 42 L, Est GFR (MDRD) Non-Af 35 L, BUN/Creatinine Ratio 19.7, Glucose 163 H, Calcium 7.8 L, Ferritin 1494 H, Total Bilirubin 0.40, AST 52 H, ALT 39, Alkaline Phosphatase 68, Troponin I 1.890 H*, C-React Prot Ext Range 319.00 H, Total Protein 6.1 L, Albumin 2.1 L, Globulin 4.0, Albumin/Globulin Ratio 0.5 L 08/15/19 03:55: WBC 11.2 H, RBC 3.81 L, Hgb 13.1, Hct 40.7, MCV 106.8 H D, MCH 34.4 H, MCHC 32.2 D, RDW Std Deviation 62.4 H, RDW Coeff of Nacho 15.7 H, Plt Count 631 H, MPV 9.1, Immature Gran % (Auto) 1.400 H, Neut % (Auto) 92.8 H, Lymph % (Auto) 2.9 L, [place] % (Auto) 2.4, Eos % (Auto) 0.2, Baso % (Auto) 0.3, Absolute Neuts (auto) 10.4 H, Absolute Lymphs (auto) 0.32 L, Nucleated RBC % 0, Differential Comment SCANNED 08/15/19 03:55: B-Natriuretic Peptide 498.4 H 08/15/19 03:55: Procalcitonin 2.09 H Current Medications Acetaminophen (Tylenol Liquid) 650 mg GT Q4H PRN PRN PRN Reason: Pain Score 1-10/Temp > 100.7 F Last Admin: 08/15/19 05:54 Dose: 650 mg Documented by: Aspirin (Aspirin, Baby) 81 mg PO DAILY@0800 [facility] Chlorhexidine Gluconate () 15 ml PO BID [facility] Last Admin: 08/14/19 20:29 Dose: 15 ml Documented by: Dextrose (D50w Syringe) 0 gm IV X1 PRN; Protocol PRN Reason: Hypoglycemia Enoxaparin Sodium (Lovenox) 100 mg SC Q12 [facility] Last Admin: 08/14/19 20:30 Dose: 100 mg Documented by: Famotidine (Pepcid) 20 mg GT BID [facility] Last Admin: 08/14/19 20:30 Dose: 20 mg Documented by: Glucagon () 1 mg IM .X1 PRN PRN Reason: Hypoglycemia Guaifenesin (Robitussin) 10 ml GT Q6 [facility] Last Admin: 08/15/19 05:54 Dose: 10 ml Documented by: Hydroxyurea (Hydrea) 1,000 mg PO DAILY [facility] Last Admin: 08/14/19 09:59 Dose: Not Given Documented by: Sodium Chloride () 250 mls @ 15 mls/hr IV .[id number] PRN PRN Reason: Saline Flush Sodium Chloride () 250 mls @ 15 mls/hr IV .[id number] PRN PRN Reason: Additional IVPB Infusion Piperacillin Sod/Tazobactam (Sod 3.375 gm/ Sodium Chloride) 50 mls @ 12.5 mls/hr IV Q8@0200,1000,1800 [facility] Last Infusion: 08/15/19 05:50 Dose: Infused Documented by: Fentanyl () 100 mls @ 5 mls/hr IV UD [facility]; Protocol Last Titration: 08/15/19 06:00 Dose: 150 mcg/hr, 15 mls/hr Documented by: Propofol (Diprivan) 1,000 mg in 100 mls @ 5.982 mls/hr CONT INF .Q12H [facility]; Protocol Last Titration: 08/15/19 06:00 Dose: 10 mcg/kg/min, 6 mls/hr Documented by: Enteral Nutritional Formula (Vital Af 1.2 Emanuel Liquid) 1,000 mls @ 65 mls/hr GT .[id number] [facility] Last Admin: 08/15/19 01:52 Dose: Not Given Documented by: Norepinephrine Bitartrate 8 mg (/ Sodium Chloride) 250 mls @ 9.375 mls/hr CONT INF .[id number] [facility]; Protocol Last Titration: 08/15/19 06:15 Dose: 1 mcg/min, 1.9 mls/hr Documented by: Cisatracurium Besylate 100 mg/ (Sodium Chloride) 250 mls @ 29.91 mls/hr CONT INF .[id number] [facility]; Protocol Last Titration: 08/15/19 06:00 Dose: 2 mcg/kg/min, 29.9 mls/hr Documented by: Levothyroxine Sodium (Synthroid) 100 mcg GT DAILY [facility] Last Admin: 08/14/19 11:00 Dose: 100 mcg Documented by: Ondansetron HCl (Zofran) 4 mg IV Q8H PRN PRN PRN Reason: NAUSEA/VOMITING Phenytoin Sodium (Dilantin) 200 mg GT DAILY [facility] Last Admin: 08/14/19 11:00 Dose: 200 mg Documented by: Sodium Chloride () 10 - 40 ml IV UD PRN PRN Reason: SALINE FLUSH Last Admin: 08/14/19 10:58 Dose: 20 ml Documented by: STROKE Vital Signs/Narrative: Vital Signs Temp Pulse Resp BP Pulse Ox 08/15/19 06:15 145/63 H 08/15/19 06:00 101.2 F H 80 18 131/52 H 94 08/15/19 05:00 100.7 F H 72 17 110/51 L 95 08/15/19 04:50 73 18 96 08/15/19 04:00 100.0 F H 73 17 123/54 H 95 08/15/19 03:00 100.0 F H 77 14 102/48 L 95 08/15/19 02:45 100.1 F H 78 14 105/47 L 94 Medical Necessity - Tobacco Use Smoking Status: Never smoker Assessment/Plan All Active Problems (Last Reviewed 08/13/19 @ 01:[address] Matt Espinoza MD) Pneumonia (Acute) Hypoxia (Acute) COVID-19 (Acute) SARS-associated coronavirus infection (Acute) The patient is a 79 y/o M w/ PMHx: HTN, Hypothyroidism, Seizure disorder who [facility] with history of dyspnea, mildly productive cough, fever and chills. 1. Acute hypoxic respiratory failure with Bilateral Pneumonia secondary to Acute Viral Syndrome, COVID-19: ED evaluation initially with CBC with WC 6.4, hemoglobin 13.6, platelet 523 with no evidence of left shift but noted lymphopenia, d-dimer 1.57, lactic acid 1.7, CMP not market appearing aside sodium 132, AST 56/ALT 48, ferritin 1156, troponin less than 0.015, BNP 48.9, procalcitonin 0.08, urinalysis with evidence of dehydration but no obvious UTI patient admitted to the ICU given severity of presentation, respiratory decline 08/14/2019 a.m. following overnight attempts to transition from Airvo to BIPAP given patient intolerance, but continued ongoing desaturations prompting 08/14/2019 early a.m. intubation, software project manager consulted and following, continue Zosyn therapy with de-escalation off vancomycin given negative MRSA screen per infectious disease recommendation, continue therapeutic Lovenox, vent management per software project manager with plan to wean FiO2 and PEEP to maintain oxygenation >/= 90%. 08/14/19 paralyzed with ability to decrease vent settings to 60% FiO2 and 10 PEEP. 08/15/19 labs w/ CMP with BUN/creatinine 39/1.98, ferritin 1494, AST/ALT 52/39, troponin I 0.890, CRP 319, BNP 498.4 with judicious diuresis per ICU physician discretion given ARDS concerns, pro calcitonin 2.09. 2. Acute NSTEMI: Likely secondary to #1, EKG in ED w/ sinus rhythm with no acute evidence of ischemia, troponin I 0.890 with continued plan for cardiac trending, repeat EKGs, echocardiogram requested, continued on therapeutic Lovenox with initiation of aspirin therapy. FLP in AM. Magnesium 2.1. Once clinically appropriate may consider cardiology consultation. 3. Acute kidney injury: Secondary to #1 and usage of lasix. Admission BUN/Cr 26/1.21, prior baseline creatinine noted to be 1.0-1.1, BUN/creatinine 39/1.98, worsening, judiciously hydrating given acute presentation as noted. Continue to closely trend. If worsening, may need to consider consultation with Nephrology. 4. Seizure disorder: Continue patient home Dilantin regimen. 5. Hypothyroidism: Continue home synthroid regimen. 6. GERD: Change to protonix. 7. DVT prophylaxis: SCDs, continue therapeutic Lovenox however if ongoing worsening renal function may need to transition to heparin drip. 8. CODE STATUS: Full code. Inpatient E&M: 70841 Subs Hosp L3
[2019-08-15] MEDS: Levothyroxine 100 MCG Tablet GT (10:13)
[2019-08-15] MEDS: 0.9% Saline Lock 10 ML Syringe IV (10:13)
[2019-08-15] MEDS: Phenytoin Na 100 MG/4 ML UDC 200 MG GT (10:14)
[2019-08-15] MEDS: Aspirin 81 MG TAB.CHEW GT (10:14)
[2019-08-15] MEDS: Enoxaparin 100 MG/ML Syringe SC ×2 (10:14→22:20)
[2019-08-15] MEDS: Chlorhexidine 15 ML PO ×2 (10:14→20:33)
[2019-08-15] MEDS: Famotidine 20 MG Tablet GT (10:14)
[2019-08-15] MEDS: Propofol 10MG/Ml 1,000 MG/100 ML Bottle 9 MG CONT INF ×2 (10:15→16:00)
[2019-08-15] MEDS: Vital AF 1.2 Cal Liquid 1,000 ML 65 ML GT (10:18)
--- NOTE | 2019-08-15 13:19 | NURSING ---
Due to COVID-19 and fentanyl drug shortages utilizing all of fentanyl in bag despite MAR indicating the bag is empty there is still volume left. Gripp continues to run at 10ml/hr or 100mcg/hr
[2019-08-15] MEDS: fentaNYL drip 100 ML 10 MCG IV ×2 (14:00→23:44)
--- NOTE | 2019-08-15 15:31 | NURSING ---
called to give update at 1530 left message
--- NOTE | 2019-08-15 16:03 | NURSING ---
1600 updated via telephone on patient condition
[2019-08-16] VITALS (48 sets, daily range): BP systolic 78–155; BP diastolic 45–64; PULSE 63–82; RESP 14–38; TEMP 37.7–38.8; O2SAT 89–96
[2019-08-16] MEDS: guaiFENesin 10 ML UDC (200MG/10ML) GT ×5 (00:27→23:37)
[2019-08-16] MEDS: TITRATION PARAMETER CHANGE 1 EACH IV ×2 (01:03→16:00)
[2019-08-16] MEDS: Propofol 10MG/Ml 1,000 MG/100 ML Bottle 9 MG CONT INF (03:07)
[2019-08-16] MEDS: 0.9% Saline Lock 10 ML Syringe IV ×3 (03:29→18:39)
[2019-08-16 03:52] LABS: Absolute Lymphocyte Count 0.27 X10^3/uL (0.83-4.51); Absolute Neutrophil Count 8.3 X10^3/uL (2.0-7.7); Basophil# 0.03 X10^3/uL; Basophil% 0.3 % (0-1); Eosinophil# 0.05 X10^3/uL; Eosinophils% 0.5 % (0-5); Hematocrit 40.9 % (40-54); Hemoglobin 13.4 g/dL (13.0-16.5); Lymphocyte # 0.27 X10^3/ul (4.0); Lymphocyte % 2.9 % (19-41); Mean Corp Hgb Conc 32.8 g/dL (32-36); Mean Corpuscular Hgb 34.8 pg (27.0-32.0); Mean Corpuscular Volume 106.2 fL (80-94); Mean Platelet Vol. 9.2 fl (6.2-12.0); Monocyte# 0.34 X10^3/uL; Monocyte% 3.7 % (0-10); NRBC Flagged by Analyzer 0 % (0-5); Neutrophil # 8.26 X10^3/uL (2.7-7.7); Neutrophil % 90.2 % (47-70); POSITIVE DIFFERENTIAL YES; Platelet Count 731 K/mm3 (150-450); RBC Distribution Width CV 15.8 % (11.6-14.6); RBC Distribution Width SD 61.8 fl (35.1-43.9); Red Blood Count 3.85 M/mm3 (4.6-6.2); White Blood Count 9.2 K/mm3 (4.4-11.0)
[2019-08-16 03:54] LABS: Differential Indicated SCAN CRITERIA MET
[2019-08-16 04:17] LABS: ALB/GLOB Ratio 0.4 RATIO (0.9-2.4); AST(SGOT) 39 U/L (15-37); Alanine Aminotransfer ALT/SGPT 35 U/L (16-61); Albumin, Serum 1.7 g/dL (3.2-5.0); Alkaline Phosphatase 71 U/L (45-117); Anion Gap 7 (5-15); BUN 49 mg/dL (7-18); BUN/Creat Ratio 23.4 RATIO (10-20); Calcium,Total 7.6 mg/dL (8.5-10.1); Chloride 104 mmol/L (98-107); Cholesterol 87 mg/dL (200); Creatinine, Serum 2.09 mg/dL (0.70-1.30); EST Glomerular Filtration Rate 33 mL/min (>60); Est Glom Filt Rate - Afr Amer 40 mL/min (>60); Estimated Creatinine Clearance 30.08 ml/min; Globulin 4.3 g/dL (2.2-4.2); Glucose 190 mg/dL (74-106); High Density Lipoprotein 19 mg/dL; Potassium 4.7 mmol/L (3.5-5.1); Sodium Level 136 mmol/L (136-145); Triglycerides 185 mg/dL; Very Low Density Lipoprotein 37 mg/dL (5-40)
[2019-08-16 04:33] LABS: Differential Comment SCANNED
[2019-08-16] MEDS: Vital AF 1.2 Cal Liquid 1,000 ML 65 ML GT ×2 (05:33→20:56)
--- NOTE | 2019-08-16 05:55 | EKG12_ITS ---
Test Reason : AM EKG Blood Pressure : / mmHG Vent. Rate : 077 BPM Atrial Rate : 077 BPM P-R Int : 216 ms QRS Dur : 096 ms QT Int : 354 ms P-R-T Axes : 048 -47 054 degrees QTc Int : 400 ms Sinus rhythm with 1st degree A-V block Left anterior fascicular block Septal infarct , age undetermined , cannot be excluded Abnormal ECG Confirmed by JYOTHI MACHADO, ALEK ([id number]), production editor JAX MOLINA ([id number]) on 08/19/2019 2:57:38 PM Referred By: ANGELY Confirmed By:ALEK ROE MD
--- NOTE | 2019-08-16 07:18 | PN_ITS ---
Subjective: Patient did okay overnight. Patient reportedly has been breathing over the ventilator for an hour or 2 this morning. Significant improvements and FiO2 and PEEP over the last 24 hours have been noted. Patient did have a mild fever, but this resolved spontaneously. Patient reportedly has been tolerating tube feeds and had a bowel movement this morning. General: - - Intubated, sedated and paralyzed. Mild anasarca noted. HEENT: Atraumatic, PERRLA, EOMI, Normocephalic, - - No scleral icterus or injection noted Oral: Moist Mucosa, No Gingival or Mucosal Lesions/ Ulcerations Neck: Supple, No Nodes, Trachea Midline, JVD, Right Lungs: No rhonchi, No wheeze, No rales, Diminished Cardiovascular: Regular rate, Regular Rhythm, Normal S1, Normal S2, No murmurs, No rub noted, No Gallop Abdomen: Bowel Sounds Present, Soft, Non Tender, Non-Distended Extremities: No clubbing, No cyanosis, Capillary Refill Less than 3 Seconds, Edema Skin: No rashes, No breakdown Musculoskeletal: No Tenderness to Palpation of Joints or Extremities Lymphatic: No Cervical, Supraclavicular, or Inguinal Adenopathy Neurological: - - Currently paralyzed. Psych/Mental Status: Flat Affect Vital Signs Temp Pulse Resp BP Pulse Ox 37.9 C H 72 38 H 138/64 H 91 08/16/19 06:00 08/16/19 07:13 08/16/19 07:13 08/16/19 06:00 08/16/19 07:13 Oxygen Flow Rate (L/min) 60 Oxygen Delivery Method Mechanical Ventilator Weight: 100 kg Body Mass Index (BMI) 31.1 Intake and Output for Last 24 Hours 08/14/19 08/15/19 08/16/19 23:59 23:59 23:59 Intake Total 2070.50 / 2408.25 3267.64 / 3771.21 1174.22 / 1174.22 Output Total 700 / 950 1000 / 1300 565 / 565 Balance 1370.50 / 1458.25 2267.64 / 2471.21 609.22 / 609.22 Labs (Last 48 Hours) 08/14/19 08/14/19 08/14/19 03:25 07:29 14:27 WBC RBC Hgb Hct MCV MCH MCHC RDW Std Deviation RDW Coeff of Nacho Plt Count MPV Immature Gran % (Auto) Neut % (Auto) Lymph % (Auto) [place] % (Auto) Eos % (Auto) Baso % (Auto) Absolute Neuts (auto) Absolute Lymphs (auto) Nucleated RBC % Differential Comment Specimen Type SOURAV ART Sample Site R RADIAL L RADIAL pH 7.46 H 7.27 L Bicarbonate Actual 21.2 L 22.4 POC Total CO2 22 24 Base Excess -3 L -4 L O2 Saturation 85 L 70 L O2 % 100 100 ABG pCO2 29.9 L 48.9 H ABG pO2 47 L 42 L Oziel Test NA NA Respiration Rate 14 14 O2 Delivery Device Vent Vent Vent Mode A-C A-C Tidal Volume 450 450 POC PEEP 10 15 Blood Gas Notified Whom ICU MD ICU MD Blood Gas Notified Time 729 1427 Sodium Potassium Chloride Carbon Dioxide Anion Gap BUN Creatinine Estim Creat Clear Calc Est GFR (MDRD) Af Amer Est GFR (MDRD) Non-Af BUN/Creatinine Ratio Glucose Calcium Ferritin Total Bilirubin AST ALT Alkaline Phosphatase Total Creatine Kinase 308 Troponin I C-React Prot Ext Range B-Natriuretic Peptide Total Protein Albumin Globulin Albumin/Globulin Ratio Triglycerides 114 Cholesterol LDL Cholesterol VLDL Cholesterol HDL Cholesterol Procalcitonin POC Glucose 08/15/19 08/15/19 08/15/19 02:13 03:55 03:55 WBC 11.2 H RBC 3.81 L Hgb 13.1 Hct 40.7 MCV 106.8 H D MCH 34.4 H MCHC 32.2 D RDW Std Deviation 62.4 H RDW Coeff of Nacho 15.7 H Plt Count 631 H MPV 9.1 Immature Gran % (Auto) 1.400 H Neut % (Auto) 92.8 H Lymph % (Auto) 2.9 L [place] % (Auto) 2.4 Eos % (Auto) 0.2 Baso % (Auto) 0.3 Absolute Neuts (auto) 10.4 H Absolute Lymphs (auto) 0.32 L Nucleated RBC % 0 Differential Comment SCANNED Specimen Type Sample Site pH Bicarbonate Actual POC Total CO2 Base Excess O2 Saturation O2 % ABG pCO2 ABG pO2 Oziel Test Respiration Rate O2 Delivery Device Vent Mode Tidal Volume POC PEEP Blood Gas Notified Whom Blood Gas Notified Time Sodium 133 L Potassium 4.7 Chloride 102 Carbon Dioxide 25.0 Anion Gap 6 BUN 39 H Creatinine 1.98 H Estim Creat Clear Calc 31.75 Est GFR (MDRD) Af Amer 42 L Est GFR (MDRD) Non-Af 35 L BUN/Creatinine Ratio 19.7 Glucose 163 H Calcium 7.8 L Ferritin 1494 H Total Bilirubin 0.40 AST 52 H ALT 39 Alkaline Phosphatase 68 Total Creatine Kinase Troponin I 1.890 H* C-React Prot Ext Range 319.00 H B-Natriuretic Peptide Total Protein 6.1 L Albumin 2.1 L Globulin 4.0 Albumin/Globulin Ratio 0.5 L Triglycerides Cholesterol LDL Cholesterol VLDL Cholesterol HDL Cholesterol Procalcitonin POC Glucose 161 H 08/15/19 08/15/19 08/15/19 03:55 03:55 10:10 WBC RBC Hgb Hct MCV MCH MCHC RDW Std Deviation RDW Coeff of Nacho Plt Count MPV Immature Gran % (Auto) Neut % (Auto) Lymph % (Auto) [place] % (Auto) Eos % (Auto) Baso % (Auto) Absolute Neuts (auto) Absolute Lymphs (auto) Nucleated RBC % Differential Comment Specimen Type Sample Site pH Bicarbonate Actual POC Total CO2 Base Excess O2 Saturation O2 % ABG pCO2 ABG pO2 Oziel Test Respiration Rate O2 Delivery Device Vent Mode Tidal Volume POC PEEP Blood Gas Notified Whom Blood Gas Notified Time Sodium Potassium Chloride Carbon Dioxide Anion Gap BUN Creatinine Estim Creat Clear Calc Est GFR (MDRD) Af Amer Est GFR (MDRD) Non-Af BUN/Creatinine Ratio Glucose Calcium Ferritin Total Bilirubin AST ALT Alkaline Phosphatase Total Creatine Kinase Troponin I 1.200 H* C-React Prot Ext Range B-Natriuretic Peptide 498.4 H Total Protein Albumin Globulin Albumin/Globulin Ratio Triglycerides Cholesterol LDL Cholesterol VLDL Cholesterol HDL Cholesterol Procalcitonin 2.09 H POC Glucose 08/16/19 08/16/19 03:30 03:30 WBC 9.2 RBC 3.85 L Hgb 13.4 Hct 40.9 MCV 106.2 H MCH 34.8 H MCHC 32.8 RDW Std Deviation 61.8 H RDW Coeff of Nacho 15.8 H Plt Count 731 H MPV 9.2 Immature Gran % (Auto) 2.400 H Neut % (Auto) 90.2 H Lymph % (Auto) 2.9 L [place] % (Auto) 3.7 Eos % (Auto) 0.5 Baso % (Auto) 0.3 Absolute Neuts (auto) 8.3 H Absolute Lymphs (auto) 0.27 L Nucleated RBC % 0 Differential Comment SCANNED Specimen Type Sample Site pH Bicarbonate Actual POC Total CO2 Base Excess O2 Saturation O2 % ABG pCO2 ABG pO2 Oziel Test Respiration Rate O2 Delivery Device Vent Mode Tidal Volume POC PEEP Blood Gas Notified Whom Blood Gas Notified Time Sodium 136 Potassium 4.7 Chloride 104 Carbon Dioxide 25.0 Anion Gap 7 BUN 49 H Creatinine 2.09 H Estim Creat Clear Calc 30.08 Est GFR (MDRD) Af Amer 40 L Est GFR (MDRD) Non-Af 33 L BUN/Creatinine Ratio 23.4 H Glucose 190 H Calcium 7.6 L Ferritin Total Bilirubin 0.40 AST 39 H ALT 35 Alkaline Phosphatase 71 Total Creatine Kinase Troponin I 0.532 H C-React Prot Ext Range B-Natriuretic Peptide Total Protein 6.0 L Albumin 1.7 L Globulin 4.3 H Albumin/Globulin Ratio 0.4 L Triglycerides 185 Cholesterol 87 LDL Cholesterol 31 VLDL Cholesterol 37 HDL Cholesterol 19 L Procalcitonin POC Glucose Microbiology 08/13/19 08:40 Sputum, Expectorated/Coughed Gram Stain - Final 08/13/19 08:40 Sputum, Expectorated/Coughed Respiratory Culture - Final 08/12/19 21:37 Blood Culture (Wb) - Anticubital Right Blood Culture - Preliminary No growth in 48 hours. 08/12/19 21:34 Blood Culture (Wb) - Anticubital Left Blood Culture - Preliminary No growth in 48 hours. Medical Necessity - Tobacco Use Smoking Status: Never smoker Assessment/Plan All Active Problems (Last Reviewed 08/13/19 @ 01:[address] Matt Espinoza MD) Pneumonia (Acute) Hypoxia (Acute) COVID-19 (Acute) SARS-associated coronavirus infection (Acute) RECOMMENDATIONS: 1. Continue to wean FiO2 and PEEP to maintain oxygen saturations at or above 90%. 2. Continue empiric antimicrobials and therapeutic Lovenox. 3. Attempt discontinuation of paralytic therapy 4. Continue tube feeds as tolerated. 5. Trend troponins and obtain echocardiogram. 6. Possible initiation of diuresis tomorrow if able to stay off of Levophed for 24 hours 7. Continue appropriate GI prophylaxis. 8. Continue Nimbex. If the patient continues to improve clinically over the next 24 hours, consider lifting paralytics tomorrow. IMPRESSIONS: 1. Acute hypoxemic respiratory failure secondary to COVID-19 infection The patient did okay over the last 24 hours. Patient has been able to come off of Levophed. Will attempt to discontinue paralytic therapy. If patient becomes dyssynchronous, will increase sedation. If this continues, a trial of APRV will be attempted. Only after this, will we reinitiate paralytic for concerns of critical care myopathy. BNP is slightly elevated and patient does appear to be somewhat volume overloaded, but will wait 24 hours after discontinuation of pressor therapy before initiation of diuretics. Patient is on empiric antibiotics at this time. 2. Acute kidney injury Likely related to ATN in the setting of #1, along with hemodynamic instability which was generated as a consequence of sedative utilization. Low- dose Levophed has been utilized to stabilize hemodynamics. Continue to monitor urine output. No current indication for renal replacement therapy. Avoid nephrotoxic medications. 3. Troponin elevation Given the cardiac implications associated with COVID infections, awaiting echocardiogram and trend troponins. Based on results, cardiology consultation may need to be obtained. 4. Unspecified seizure disorder/hypothyroidism/hypertension/obesity Complicates care, management, recovery and prognosis. Continue home medications as indicated. TIME: 37 minutes of critical care time, independent of procedures, was spent addressing the patient's acute hypoxemic respiratory failure secondary to COVID- 19 infection, acute kidney injury, troponin elevation, review of all data and collaboration with the care team. (6 AM to 7 AM) 9xxxx: [id number] Critical care first hour
[2019-08-16] MEDS: Lansoprazole 15 MG Capsule.DR GT ×2 (08:48→21:02)
[2019-08-16] MEDS: Aspirin 81 MG TAB.CHEW GT (08:48)
[2019-08-16] MEDS: Levothyroxine 100 MCG Tablet GT (08:49)
[2019-08-16] MEDS: Enoxaparin 100 MG/ML Syringe SC ×2 (08:50→21:03)
[2019-08-16] MEDS: Phenytoin Na 100 MG/4 ML UDC 200 MG GT (08:50)
[2019-08-16] MEDS: Hydroxyurea 500 MG Capsule 1000 MG PO (08:50)
[2019-08-16] MEDS: Chlorhexidine 15 ML PO ×2 (08:51→20:52)
[2019-08-16] MEDS: fentaNYL drip 100 ML 15 MCG IV (09:15)
[2019-08-16] MEDS: Propofol 10MG/Ml 1,000 MG/100 ML Bottle 18 MG CONT INF ×3 (11:15→19:40)
--- NOTE | 2019-08-16 13:32 | PCM.PN.HOSP ---
Patient Problems: Active and Suspected Problems (Last Reviewed 08/13/19 @ 01:[address] Matt Espinoza MD) Pneumonia (Acute) Hypoxia (Acute) COVID-19 (Acute) SARS-associated coronavirus infection (Acute) Reason for Visit: COVID-19 Subjective: very agitated. paralytics weaned off. Vitals/I&O's: Vital Signs Temp Pulse Resp BP Pulse Ox 37.9 C H 80 20 H 124/53 H 94 08/16/19 10:00 08/16/19 10:00 08/16/19 10:00 08/16/19 10:00 08/16/19 10:00 Oxygen Flow Rate (L/min) 60 Oxygen Delivery Method Mechanical Ventilator Weight: 100 kg Body Mass Index (BMI) 31.1 Intake and Output for Last 24 Hours 08/14/19 08/15/19 08/16/19 23:59 23:59 23:59 Intake Total 2070.50 / 2408.25 3267.64 / 3771.21 1406.95 / 1406.95 Output Total 700 / 950 1000 / 1300 565 / 565 Balance 1370.50 / 1458.25 2267.64 / 2471.21 841.95 / 841.95 General: - - intubated. sedated. afebrile. HEENT: Atraumatic, Normocephalic Oral: - - ETT and OG in place. Lungs: Diminished, - - coarse breath sounds bilaterally. Cardiovascular: Regular rate, Regular Rhythm, Normal S1, Normal S2, No murmurs Abdomen: Bowel Sounds Present, Soft, Non Tender, Non-Distended, No Hepato-splenomegaly Extremities: No edema, No Calf Tenderness Microbiology Past 72 Hours 08/13/19 08:40 Sputum, Expectorated/Coughed Gram Stain - Final 08/13/19 08:40 Sputum, Expectorated/Coughed Respiratory Culture - Final 08/12/19 21:37 Blood Culture (Wb) - Anticubital Right Blood Culture - Preliminary No growth in 48 hours. 08/12/19 21:34 Blood Culture (Wb) - Anticubital Left Blood Culture - Preliminary No growth in 48 hours. Laboratory Results 08/16/19 03:30: Sodium 136, Potassium 4.7, Chloride 104, Carbon Dioxide 25.0, Anion Gap 7, BUN 49 H, Creatinine 2.09 H, Estim Creat Clear Calc 30.08, Est GFR (MDRD) Af Amer 40 L, Est GFR (MDRD) Non-Af 33 L, BUN/Creatinine Ratio 23.4 H, Glucose 190 H, Calcium 7.6 L, Total Bilirubin 0.40, AST 39 H, ALT 35, Alkaline Phosphatase 71, Troponin I 0.532 H, Total Protein 6.0 L, Albumin 1.7 L, Globulin 4.3 H, Albumin/Globulin Ratio 0.4 L, Triglycerides 185, Cholesterol 87, LDL Cholesterol 31, VLDL Cholesterol 37, HDL Cholesterol 19 L 08/16/19 03:30: WBC 9.2, RBC 3.85 L, Hgb 13.4, Hct 40.9, MCV 106.2 H, MCH 34.8 H, MCHC 32.8, RDW Std Deviation 61.8 H, RDW Coeff of Nacho 15.8 H, Plt Count 731 H, MPV 9.2, Immature Gran % (Auto) 2.400 H, Neut % (Auto) 90.2 H, Lymph % (Auto) 2.9 L, [place] % (Auto) 3.7, Eos % (Auto) 0.5, Baso % (Auto) 0.3, Absolute Neuts (auto) 8.3 H, Absolute Lymphs (auto) 0.27 L, Nucleated RBC % 0, Differential Comment SCANNED Current Medications Acetaminophen (Tylenol Liquid) 650 mg GT Q4H PRN PRN PRN Reason: Pain Score 1-10/Temp > 100.7 F Last Admin: 08/15/19 17:12 Dose: 650 mg Documented by: Aspirin (Aspirin, Baby) 81 mg GT DAILY@1000 [facility] Last Admin: 08/16/19 08:48 Dose: 81 mg Documented by: Chlorhexidine Gluconate () 15 ml PO BID [facility] Last Admin: 08/16/19 08:51 Dose: 15 ml Documented by: Dextrose (D50w Syringe) 0 gm IV X1 PRN; Protocol PRN Reason: Hypoglycemia Enoxaparin Sodium (Lovenox) 100 mg SC Q12 [facility] Last Admin: 08/16/19 08:50 Dose: 100 mg Documented by: Glucagon () 1 mg IM .X1 PRN PRN Reason: Hypoglycemia Guaifenesin (Robitussin) 10 ml GT Q6 [facility] Last Admin: 08/16/19 06:32 Dose: 10 ml Documented by: Hydroxyurea (Hydrea) 1,000 mg PO DAILY [facility] Last Admin: 08/16/19 08:50 Dose: 1,000 mg Documented by: Sodium Chloride () 250 mls @ 15 mls/hr IV .[id number] PRN PRN Reason: Saline Flush Sodium Chloride () 250 mls @ 15 mls/hr IV .[id number] PRN PRN Reason: Additional IVPB Infusion Piperacillin Sod/Tazobactam (Sod 3.375 gm/ Sodium Chloride) 50 mls @ 12.5 mls/hr IV Q8@0200,1000,1800 [facility] Last Admin: 08/16/19 10:11 Dose: 12.5 mls/hr Documented by: Fentanyl () 100 mls @ 5 mls/hr IV UD [facility]; Protocol Last Titration: 08/16/19 10:00 Dose: 200 mcg/hr, 20 mls/hr Documented by: Propofol (Diprivan) 1,000 mg in 100 mls @ 6 mls/hr CONT INF .Q12H [facility]; Protocol Last Titration: 08/16/19 10:00 Dose: 30 mcg/kg/min, 18 mls/hr Documented by: Enteral Nutritional Formula (Vital Af 1.2 Emanuel Liquid) 1,000 mls @ 65 mls/hr GT .[id number] [facility] Last Admin: 08/16/19 05:33 Dose: 65 mls/hr Documented by: Norepinephrine Bitartrate 8 mg (/ Sodium Chloride) 250 mls @ 9.375 mls/hr CONT INF .[id number] [facility]; Protocol Last Titration: 08/16/19 10:00 Dose: 5 mcg/min, 9.4 mls/hr Documented by: Lansoprazole (Lansoprazole) 15 mg GT BID [facility] Last Admin: 08/16/19 08:48 Dose: 15 mg Documented by: Levothyroxine Sodium (Synthroid) 100 mcg GT DAILY [facility] Last Admin: 08/16/19 08:49 Dose: 100 mcg Documented by: Ondansetron HCl (Zofran) 4 mg IV Q8H PRN PRN PRN Reason: NAUSEA/VOMITING Phenytoin Sodium (Dilantin) 200 mg GT DAILY [facility] Last Admin: 08/16/19 08:50 Dose: 200 mg Documented by: Sodium Chloride () 10 - 40 ml IV UD PRN PRN Reason: SALINE FLUSH Last Admin: 08/16/19 06:32 Dose: 10 ml Documented by: STROKE Vital Signs/Narrative: Vital Signs Temp Pulse Resp BP BP Pulse Ox 08/16/19 10:00 37.9 C H 80 20 H 155/57 H 124/53 H 94 08/16/19 09:37 82 21 H 91 Medical Necessity - Tobacco Use Smoking Status: Never smoker Assessment/Plan All Active Problems (Last Reviewed 08/13/19 @ 01:[address] Matt Espinoza MD) Pneumonia (Acute) Hypoxia (Acute) COVID-19 (Acute) SARS-associated coronavirus infection (Acute) assessment 1. acute hypoxic respiratory failure 2. COVID-10 3. NSTEMI 4. LI plan: 1. vent mgmt per CCM 2. conitnue LMWH and ASA 3. check echo cardiogram 4. continue pip/tazo Inpatient E&M: 72485 Subs Hosp L2
[2019-08-16] MEDS: fentaNYL drip 100 ML 20 MCG IV ×2 (14:47→19:42)
[2019-08-16] MEDS: QUEtiapine 25 MG Tablet 50 MG PO (15:06)
[2019-08-16] MEDS: Acetaminophen 650 MG/20 ML UDC GT (20:53)
[2019-08-16] MEDS: QUEtiapine 100 MG Tablet PO (21:05)
[2019-08-17] VITALS (55 sets, daily range): BP systolic 93–166; BP diastolic 38–86; PULSE 65–99; RESP 14–38; TEMP 37.8–38.6; O2SAT 90–96
[2019-08-17] MEDS: fentaNYL drip 100 ML 20 MCG IV ×5 (00:41→21:19)
[2019-08-17] MEDS: Propofol 10MG/Ml 1,000 MG/100 ML Bottle 15 MG CONT INF (00:42)
[2019-08-17 05:04] LABS: Absolute Neutrophil Count 7.7 X10^3/uL (2.0-7.7); Basophil# 0.03 X10^3/uL; Basophil% 0.3 % (0-1); Eosinophil# 0.18 X10^3/uL; Eosinophils% 2.1 % (0-5); Hematocrit 36.5 % (40-54); Hemoglobin 11.7 g/dL (13.0-16.5); Lymphocyte % 4.7 % (19-41); Mean Corp Hgb Conc 32.1 g/dL (32-36); Mean Corpuscular Hgb 34.2 pg (27.0-32.0); Mean Corpuscular Volume 106.7 fL (80-94); Mean Platelet Vol. 9.1 fl (6.2-12.0); Monocyte% 2.3 % (0-10); NRBC Flagged by Analyzer 0 % (0-5); Neutrophil # 7.67 X10^3/uL (2.7-7.7); Neutrophil % 89.3 % (47-70); POSITIVE DIFFERENTIAL YES; POSITIVE MORPHOLOGY YES; Platelet Count 735 K/mm3 (150-450); Red Blood Count 3.42 M/mm3 (4.6-6.2); White Blood Count 8.6 K/mm3 (4.4-11.0)
[2019-08-17] MEDS: Propofol 10MG/Ml 1,000 MG/100 ML Bottle 21 MG CONT INF (05:07)
[2019-08-17 05:11] LABS: Differential Indicated SCAN CRITERIA MET
[2019-08-17] MEDS: guaiFENesin 10 ML UDC (200MG/10ML) GT ×4 (05:11→23:31)
[2019-08-17 05:24] LABS: Anion Gap 6 (5-15); BUN 62 mg/dL (7-18); BUN/Creat Ratio 26.5 RATIO (10-20); Calcium,Total 7.6 mg/dL (8.5-10.1); Chloride 108 mmol/L (98-107); Creatinine, Serum 2.34 mg/dL (0.70-1.30); EST Glomerular Filtration Rate 29 mL/min (>60); Est Glom Filt Rate - Afr Amer 35 mL/min (>60); Estimated Creatinine Clearance 26.86 ml/min; Ferritin 1061 ng/mL (26-388); Glucose 168 mg/dL (74-106); Potassium 4.3 mmol/L (3.5-5.1); Sodium Level 137 mmol/L (136-145)
[2019-08-17 05:34] LABS: Differential Comment SCANNED; Reactive Lymphocyte RARE
[2019-08-17] MEDS: QUEtiapine 100 MG Tablet PO (07:50)
[2019-08-17] MEDS: Propofol 10MG/Ml 1,000 MG/100 ML Bottle 24 MG CONT INF (07:51)
[2019-08-17 08:05] LABS: Base Excess -4 mmol/L (-2 to +2); Bicarbonate 22.2 mmol/L (22-26); PO2 55 mmHG (75-100); SO2 86 % (95-99); Total Carbon Dioxide 23 mmol/L; pCO2 42.9 mmHg (35-45); pH 7.32 (7.35-7.45)
[2019-08-17 08:06] LABS: Blood Gas Specimen Type ART; SITE R RADIAL
[2019-08-17 08:07] LABS: Allen Test POS; FI02 55; Mode A-C; O2 Delivery Device Vent; PEEP 10; RR 14; Vt 450
[2019-08-17 08:08] LABS: Time Given 748
--- NOTE | 2019-08-17 08:17 | PCM.PN.INT ---
Subjective: Patient did okay overnight. Sedation has been difficult, but paralytic has not needed to be reinitiated. Patient is on low-dose Levophed to maintain appropriate saturations. Patient with significant spontaneous movement, but still not readily following commands. Patient did have significant fever overnight. No need for increased PEEP or FiO2. General: - - Intubated and sedated. Obese. Fair to poor ventilator synchrony HEENT: Atraumatic, PERRLA, EOMI, Normocephalic, - - Slight scleral injection without icterus Oral: Moist Mucosa, No Gingival or Mucosal Lesions/ Ulcerations Neck: Supple, No JVD, No Nodes, Trachea Midline Lungs: No rhonchi, No rales, Diminished, Wheezes, - - Symmetric expansion. Cardiovascular: Regular rate, Regular Rhythm, Normal S1, Normal S2, No murmurs, No rub noted, No Gallop Abdomen: Bowel Sounds Present, Soft, Non Tender, Non-Distended, Obese Extremities: No clubbing, No cyanosis, Edema - 1+, - - Patient's propofol peripheral IV found kinked. This was corrected with tape. Patient with improved respiratory rate following change Skin: No rashes, No breakdown Musculoskeletal: No Tenderness to Palpation of Joints or Extremities Lymphatic: No Cervical, Supraclavicular, or Inguinal Adenopathy Neurological: Cranial nerves II-XII grossly intact, Neuro grossly intact, Motor Exam 5/5 strength throughout Psych/Mental Status: Flat Affect, Restless Vital Signs Temp Pulse Resp BP Pulse Ox 38.3 C H 82 33 H 148/59 H 90 08/17/19 07:00 08/17/19 07:05 08/17/19 07:05 08/17/19 07:00 08/17/19 07:05 Oxygen Flow Rate (L/min) 60 Oxygen Delivery Method Mechanical Ventilator Weight: 101 kg Body Mass Index (BMI) 31.1 Intake and Output for Last 24 Hours 08/15/19 08/16/19 08/17/19 23:59 23:59 23:59 Intake Total 3267.64 / 3771.21 3700.81 / 3744.41 823.95 / 823.95 Output Total 1000 / 1300 1240 / 1240 300 / 300 Balance 2267.64 / 2471.21 2460.81 / 2504.41 523.95 / 523.95 Labs (Last 48 Hours) 08/15/19 08/16/19 08/16/19 10:10 03:30 03:30 WBC 9.2 RBC 3.85 L Hgb 13.4 Hct 40.9 MCV 106.2 H MCH 34.8 H MCHC 32.8 RDW Std Deviation 61.8 H RDW Coeff of Nacho 15.8 H Plt Count 731 H MPV 9.2 Immature Gran % (Auto) 2.400 H Neut % (Auto) 90.2 H Lymph % (Auto) 2.9 L [place] % (Auto) 3.7 Eos % (Auto) 0.5 Baso % (Auto) 0.3 Absolute Neuts (auto) 8.3 H Absolute Lymphs (auto) 0.27 L Nucleated RBC % 0 Differential Comment SCANNED Reactive Lymphocytes Specimen Type Sample Site pH Bicarbonate Actual POC Total CO2 Base Excess O2 Saturation O2 % ABG pCO2 ABG pO2 Oziel Test Respiration Rate O2 Delivery Device Vent Mode Tidal Volume POC PEEP Blood Gas Notified Whom Blood Gas Notified Time Sodium 136 Potassium 4.7 Chloride 104 Carbon Dioxide 25.0 Anion Gap 7 BUN 49 H Creatinine 2.09 H Estim Creat Clear Calc 30.08 Est GFR (MDRD) Af Amer 40 L Est GFR (MDRD) Non-Af 33 L BUN/Creatinine Ratio 23.4 H Glucose 190 H Calcium 7.6 L Ferritin Total Bilirubin 0.40 AST 39 H ALT 35 Alkaline Phosphatase 71 Troponin I 1.200 H* 0.532 H C-React Prot Ext Range Total Protein 6.0 L Albumin 1.7 L Globulin 4.3 H Albumin/Globulin Ratio 0.4 L Triglycerides 185 Cholesterol 87 LDL Cholesterol 31 VLDL Cholesterol 37 HDL Cholesterol 19 L Procalcitonin 08/17/19 08/17/19 08/17/19 04:50 04:50 04:50 WBC 8.6 RBC 3.42 L Hgb 11.7 L Hct 36.5 L MCV 106.7 H MCH 34.2 H MCHC 32.1 RDW Std Deviation 63.0 H RDW Coeff of Nacho 16.0 H Plt Count 735 H MPV 9.1 Immature Gran % (Auto) 1.300 H Neut % (Auto) 89.3 H Lymph % (Auto) 4.7 L [place] % (Auto) 2.3 Eos % (Auto) 2.1 Baso % (Auto) 0.3 Absolute Neuts (auto) 7.7 Absolute Lymphs (auto) 0.40 L Nucleated RBC % 0 Differential Comment SCANNED Reactive Lymphocytes RARE Specimen Type Sample Site pH Bicarbonate Actual POC Total CO2 Base Excess O2 Saturation O2 % ABG pCO2 ABG pO2 Oziel Test Respiration Rate O2 Delivery Device Vent Mode Tidal Volume POC PEEP Blood Gas Notified Whom Blood Gas Notified Time Sodium 137 Potassium 4.3 Chloride 108 H Carbon Dioxide 23.0 Anion Gap 6 BUN 62 H Creatinine 2.34 H Estim Creat Clear Calc 26.86 Est GFR (MDRD) Af Amer 35 L Est GFR (MDRD) Non-Af 29 L BUN/Creatinine Ratio 26.5 H Glucose 168 H Calcium 7.6 L Ferritin 1061 H Total Bilirubin AST ALT Alkaline Phosphatase Troponin I C-React Prot Ext Range 183.00 H Total Protein Albumin Globulin Albumin/Globulin Ratio Triglycerides Cholesterol LDL Cholesterol VLDL Cholesterol HDL Cholesterol Procalcitonin Pending 08/17/19 07:48 WBC RBC Hgb Hct MCV MCH MCHC RDW Std Deviation RDW Coeff of Nacho Plt Count MPV Immature Gran % (Auto) Neut % (Auto) Lymph % (Auto) [place] % (Auto) Eos % (Auto) Baso % (Auto) Absolute Neuts (auto) Absolute Lymphs (auto) Nucleated RBC % Differential Comment Reactive Lymphocytes Specimen Type ART Sample Site R RADIAL pH 7.32 L Bicarbonate Actual 22.2 POC Total CO2 23 Base Excess -4 L O2 Saturation 86 L O2 % 55 ABG pCO2 42.9 ABG pO2 55 L Oziel Test POS Respiration Rate 14 O2 Delivery Device Vent Vent Mode A-C Tidal Volume 450 POC PEEP 10 Blood Gas Notified Whom ICU MD Blood Gas Notified Time 748 Sodium Potassium Chloride Carbon Dioxide Anion Gap BUN Creatinine Estim Creat Clear Calc Est GFR (MDRD) Af Amer Est GFR (MDRD) Non-Af BUN/Creatinine Ratio Glucose Calcium Ferritin Total Bilirubin AST ALT Alkaline Phosphatase Troponin I C-React Prot Ext Range Total Protein Albumin Globulin Albumin/Globulin Ratio Triglycerides Cholesterol LDL Cholesterol VLDL Cholesterol HDL Cholesterol Procalcitonin Microbiology 08/13/19 08:40 Sputum, Expectorated/Coughed Gram Stain - Final 08/13/19 08:40 Sputum, Expectorated/Coughed Respiratory Culture - Final 08/12/19 21:37 Blood Culture (Wb) - Anticubital Right Blood Culture - Preliminary No growth in 48 hours. 08/12/19 21:34 Blood Culture (Wb) - Anticubital Left Blood Culture - Preliminary No growth in 48 hours. Medical Necessity - Tobacco Use Smoking Status: Never smoker Assessment/Plan All Active Problems (Last Reviewed 08/13/19 @ 01:[address] Matt Espinoza MD) Pneumonia (Acute) Hypoxia (Acute) COVID-19 (Acute) SARS-associated coronavirus infection (Acute) RECOMMENDATIONS: 1. Continue to wean FiO2 and PEEP to maintain oxygen saturations at or above 90%. 2. Continue empiric antimicrobials. Hold morning Lovenox dose for central line 3. Await central access, but may need to transition from propofol to Precedex 4. Continue tube feeds as tolerated. 5. Trend troponins and await echocardiogram. 6. Possible initiation of diuresis tomorrow if able to stay off of Levophed for 24 hours 7. Continue appropriate GI prophylaxis. IMPRESSIONS: 1. Acute hypoxemic respiratory failure secondary to COVID-19 infection The patient did okay over the last 24 hours. Patient has been able to come off of Levophed intermittently. Patient tolerating discontinuation of paralytic. Some tachypnea noted, but this may be secondary to unreliable propofol dosing. Will plan for a central line today. Hold morning Lovenox to facilitate intervention. BNP is slightly elevated and patient does appear to be somewhat volume overloaded, but will wait 24 hours after discontinuation of pressor therapy before initiation of diuretics. Patient is on empiric antibiotics at this time. CRP is significantly improved compared to previous suggesting improved inflammation. We will continue with Lovenox following procedure. 2. Acute kidney injury Likely related to ATN in the setting of #1, along with hemodynamic instability which was generated as a consequence of sedative utilization. Low-dose Levophed has been utilized to stabilize hemodynamics. Continue to monitor urine output. No current indication for renal replacement therapy. Avoid nephrotoxic medications. Possibly involve nephrology tomorrow if status continues to worsen. 3. Troponin elevation Given the cardiac implications associated with COVID infections, awaiting echocardiogram and trend troponins. Based on results, cardiology consultation may need to be obtained. 4. Unspecified seizure disorder/hypothyroidism/hypertension/obesity Complicates care, management, recovery and prognosis. Continue home medications as indicated. TIME: 40 minutes of critical care time, independent of procedures, was spent addressing the patient's acute hypoxemic respiratory failure secondary to COVID-19 infection, acute kidney injury, troponin elevation, review of all data and collaboration with the care team. (7 AM to 8:20 AM) [phone]: [id number] Critical care first hour
[2019-08-17] MEDS: 0.9% Saline Lock 10 ML Syringe IV ×2 (08:41→17:07)
[2019-08-17] MEDS: Chlorhexidine 15 ML PO ×2 (08:41→20:55)
[2019-08-17 08:48] LABS: Procalcitonin 2.28 ng/mL (0.00-0.09)
--- NOTE | 2019-08-17 10:22 | CASEMGMT ---
Social Work Staff inquiring about HCPOA. No Advance Directives on file at [facility]. Per RN CM assessment with pt Carolynn, pt does not have a health care POA. Carolynn is the next of kin and decision maker. ADINA Dos Santos
--- NOTE | 2019-08-17 10:56 | PN.ID_ITS ---
Patient Problems: Active and Suspected Problems (Last Reviewed 08/13/19 @ 01:[address] Matt Espinoza MD) Pneumonia (Acute) Hypoxia (Acute) COVID-19 (Acute) SARS-associated coronavirus infection (Acute) Subjective: On vent, still persistent fever - Physical Exam Vitals/I&O's: Vital Signs Temp Pulse Resp BP Pulse Ox 101 F H 79 30 H 137/65 H 92 08/17/19 07:00 08/17/19 08:59 08/17/19 08:59 08/17/19 08:00 08/17/19 08:59 Oxygen Flow Rate (L/min) 60 Oxygen Delivery Method Mechanical Ventilator Weight: 101 kg Body Mass Index (BMI) 31.1 Intake and Output for Last 24 Hours 08/15/19 08/16/19 08/17/19 23:59 23:59 23:59 Intake Total 3267.64 / 3771.21 3700.81 / 3744.41 1014.85 / 1014.85 Output Total 1000 / 1300 1240 / 1240 1050 / 1050 Balance 2267.64 / 2471.21 2460.81 / 2504.41 -35.15 / -35.15 General: No apparent distress Lungs: Diminished Cardiovascular: Regular rate, Regular Rhythm Abdomen: Soft, Non Tender, Non-Distended Skin: No rashes Microbiology Past 72 Hours 08/13/19 08:40 Sputum, Expectorated/Coughed Gram Stain - Final 08/13/19 08:40 Sputum, Expectorated/Coughed Respiratory Culture - Final 08/12/19 21:37 Blood Culture (Wb) - Anticubital Right Blood Culture - Preliminary No growth in 48 hours. 08/12/19 21:34 Blood Culture (Wb) - Anticubital Left Blood Culture - Preliminary No growth in 48 hours. Laboratory Results 08/17/19 04:50: Sodium 137, Potassium 4.3, Chloride 108 H, Carbon Dioxide 23.0, Anion Gap 6, BUN 62 H, Creatinine 2.34 H, Estim Creat Clear Calc 26.86, Est GFR (MDRD) Af Amer 35 L, Est GFR (MDRD) Non-Af 29 L, BUN/Creatinine Ratio 26.5 H, Glucose 168 H, Calcium 7.6 L, Ferritin 1061 H, C-React Prot Ext Range 183.00 H 08/17/19 04:50: Procalcitonin 2.28 H 08/17/19 04:50: WBC 8.6, RBC 3.42 L, Hgb 11.7 L, Hct 36.5 L, MCV 106.7 H, MCH 34.2 H, MCHC 32.1, RDW Std Deviation 63.0 H, RDW Coeff of Nacho 16.0 H, Plt Count 735 H, MPV 9.1, Immature Gran % (Auto) 1.300 H, Neut % (Auto) 89.3 H, Lymph % (Auto) 4.7 L, [place] % (Auto) 2.3, Eos % (Auto) 2.1, Baso % (Auto) 0.3, Absolute Neuts (auto) 7.7, Absolute Lymphs (auto) 0.40 L, Nucleated RBC % 0, Differential Comment SCANNED, Reactive Lymphocytes RARE 08/17/19 07:48: Specimen Type ART, Sample Site R RADIAL, pH 7.32 L, Bicarbonate Actual 22.2, POC Total CO2 23, Base Excess -4 L, O2 Saturation 86 L, O2 % 55, ABG pCO2 42.9, ABG pO2 55 L, Oziel Test POS, Respiration Rate 14, O2 Delivery Device Vent, Vent Mode A-C, Tidal Volume 450, POC PEEP 10, Blood Gas Notified Whom ICU MD, Blood Gas Notified Time 748 Current Medications Acetaminophen (Tylenol Liquid) 650 mg GT Q4H PRN PRN PRN Reason: Pain Score 1-10/Temp > 100.7 F Last Admin: 08/16/19 20:53 Dose: 650 mg Documented by: Aspirin (Aspirin, Baby) 81 mg GT DAILY@1000 [facility] Last Admin: 08/16/19 08:48 Dose: 81 mg Documented by: Chlorhexidine Gluconate () 15 ml PO BID [facility] Last Admin: 08/17/19 08:41 Dose: 15 ml Documented by: Dextrose (D50w Syringe) 0 gm IV X1 PRN; Protocol PRN Reason: Hypoglycemia Enoxaparin Sodium (Lovenox) 100 mg SC Q12 [facility] Last Admin: 08/17/19 07:50 Dose: Not Given Documented by: Glucagon () 1 mg IM .X1 PRN PRN Reason: Hypoglycemia Guaifenesin (Robitussin) 10 ml GT Q6 [facility] Last Admin: 08/17/19 05:11 Dose: 10 ml Documented by: Sodium Chloride () 250 mls @ 15 mls/hr IV .[id number] PRN PRN Reason: Saline Flush Sodium Chloride () 250 mls @ 15 mls/hr IV .[id number] PRN PRN Reason: Additional IVPB Infusion Fentanyl () 100 mls @ 5 mls/hr IV UD [facility]; Protocol Last Titration: 08/17/19 09:00 Dose: 200 mcg/hr, 20 mls/hr Documented by: Propofol (Diprivan) 1,000 mg in 100 mls @ 6 mls/hr CONT INF .Q12H [facility]; Protocol Last Titration: 08/17/19 09:00 Dose: 40 mcg/kg/min, 24 mls/hr Documented by: Enteral Nutritional Formula (Vital Af 1.2 Emanuel Liquid) 1,000 mls @ 65 mls/hr GT .[id number] [facility] Last Admin: 08/16/19 20:56 Dose: 65 mls/hr Documented by: Norepinephrine Bitartrate 8 mg (/ Sodium Chloride) 250 mls @ 9.375 mls/hr CONT INF .[id number] [facility]; Protocol Last Titration: 08/17/19 08:00 Dose: 2 mcg/min, 3.8 mls/hr Documented by: Lansoprazole (Lansoprazole) 15 mg GT BID [facility] Last Admin: 08/16/19 21:02 Dose: 15 mg Documented by: Levothyroxine Sodium (Synthroid) 100 mcg GT DAILY [facility] Last Admin: 08/16/19 08:49 Dose: 100 mcg Documented by: Ondansetron HCl (Zofran) 4 mg IV Q8H PRN PRN PRN Reason: NAUSEA/VOMITING Phenytoin Sodium (Dilantin) 200 mg GT DAILY [facility] Last Admin: 08/16/19 08:50 Dose: 200 mg Documented by: Quetiapine Fumarate (Seroquel) 100 mg GT BID [facility] Sodium Chloride () 10 - 40 ml IV UD PRN PRN Reason: SALINE FLUSH Last Admin: 08/17/19 08:41 Dose: 10 ml Documented by: Medical Necessity - Tobacco Use Smoking Status: Never smoker Route of nutrition/ use of supplements: [] Nutritional Intake: [] IV Site: [] Neil Catheter: [] - Assessment/Plan Antibiotics: [] Assessment/Plan: [] Active and Suspected Problems (Last Reviewed 08/13/19 @ 01:[address] Matt Espinoza MD) Pneumonia (Acute) Hypoxia (Acute) COVID-19 (Acute) SARS-associated coronavirus infection (Acute) COVID with hypoxic resp failure - s/p convalescent plasma 08/12. MRSA screen neg. Cont zosyn. Cxs neg so far. O2 and inflammatory markers improving. Will repeat bcx today. Will follow
[2019-08-17] MEDS: Aspirin 81 MG TAB.CHEW GT (11:38)
[2019-08-17] MEDS: Phenytoin Na 100 MG/4 ML UDC 200 MG GT (11:38)
[2019-08-17] MEDS: Acetaminophen 650 MG/20 ML UDC GT ×2 (11:38→21:11)
[2019-08-17] MEDS: Levothyroxine 100 MCG Tablet GT (11:39)
[2019-08-17] MEDS: Lansoprazole 15 MG Capsule.DR GT ×2 (11:39→20:55)
--- NOTE | 2019-08-17 11:58 | PCM.PN.HOSP ---
Patient Problems: Active and Suspected Problems (Last Reviewed 08/13/19 @ 01:[address] Matt Espinoza MD) Pneumonia (Acute) Hypoxia (Acute) COVID-19 (Acute) SARS-associated coronavirus infection (Acute) Reason for Visit: COVID-19 Subjective: Fevers overnight. Not following commands. Vitals/I&O's: Vital Signs Temp Pulse Resp BP Pulse Ox 38.3 C H 80 33 H 137/65 H 93 08/17/19 07:00 08/17/19 11:04 08/17/19 11:04 08/17/19 08:00 08/17/19 11:04 Oxygen Flow Rate (L/min) 60 Oxygen Delivery Method Mechanical Ventilator Weight: 101 kg Body Mass Index (BMI) 31.1 Intake and Output for Last 24 Hours 08/15/19 08/16/19 08/17/19 23:59 23:59 23:59 Intake Total 3267.64 / 3771.21 3700.81 / 3744.41 1014.85 / 1014.85 Output Total 1000 / 1300 1240 / 1240 1050 / 1050 Balance 2267.64 / 2471.21 2460.81 / 2504.41 -35.15 / -35.15 General: - - intubated. sedated HEENT: Atraumatic, Normocephalic Oral: Moist Mucosa, No Gingival or Mucosal Lesions/ Ulcerations Neck: No Nodes, Trachea Midline Lungs: Clear to auscultation, Normal air movement, No rhonchi, No wheeze, No rales Cardiovascular: Regular rate, Regular Rhythm, Normal S1, Normal S2 Abdomen: Bowel Sounds Present, Soft, Non Tender, Non-Distended, No Hepato-splenomegaly Extremities: No edema, No Calf Tenderness Skin: No rashes, No breakdown Musculoskeletal: No Tenderness to Palpation of Joints or Extremities, No Muscle Wasting Microbiology Past 72 Hours 08/13/19 08:40 Sputum, Expectorated/Coughed Gram Stain - Final 08/13/19 08:40 Sputum, Expectorated/Coughed Respiratory Culture - Final 08/12/19 21:37 Blood Culture (Wb) - Anticubital Right Blood Culture - Preliminary No growth in 48 hours. 08/12/19 21:34 Blood Culture (Wb) - Anticubital Left Blood Culture - Preliminary No growth in 48 hours. Laboratory Results 08/17/19 04:50: Sodium 137, Potassium 4.3, Chloride 108 H, Carbon Dioxide 23.0, Anion Gap 6, BUN 62 H, Creatinine 2.34 H, Estim Creat Clear Calc 26.86, Est GFR (MDRD) Af Amer 35 L, Est GFR (MDRD) Non-Af 29 L, BUN/Creatinine Ratio 26.5 H, Glucose 168 H, Calcium 7.6 L, Ferritin 1061 H, C-React Prot Ext Range 183.00 H 08/17/19 04:50: Procalcitonin 2.28 H 08/17/19 04:50: WBC 8.6, RBC 3.42 L, Hgb 11.7 L, Hct 36.5 L, MCV 106.7 H, MCH 34.2 H, MCHC 32.1, RDW Std Deviation 63.0 H, RDW Coeff of Nacho 16.0 H, Plt Count 735 H, MPV 9.1, Immature Gran % (Auto) 1.300 H, Neut % (Auto) 89.3 H, Lymph % (Auto) 4.7 L, Jewell % (Auto) 2.3, Eos % (Auto) 2.1, Baso % (Auto) 0.3, Absolute Neuts (auto) 7.7, Absolute Lymphs (auto) 0.40 L, Nucleated RBC % 0, Differential Comment SCANNED, Reactive Lymphocytes RARE 08/17/19 07:48: Specimen Type ART, Sample Site R RADIAL, pH 7.32 L, Bicarbonate Actual 22.2, POC Total CO2 23, Base Excess -4 L, O2 Saturation 86 L, O2 % 55, ABG pCO2 42.9, ABG pO2 55 L, Oziel Test POS, Respiration Rate 14, O2 Delivery Device Vent, Vent Mode A-C, Tidal Volume 450, POC PEEP 10, Blood Gas Notified Whom ICU MD, Blood Gas Notified Time 748 Current Medications Acetaminophen (Tylenol Liquid) 650 mg GT Q4H PRN PRN PRN Reason: Pain Score 1-10/Temp > 100.7 F Last Admin: 08/17/19 11:38 Dose: 650 mg Documented by: Aspirin (Aspirin, Baby) 81 mg GT DAILY@1000 [facility] Last Admin: 08/17/19 11:38 Dose: 81 mg Documented by: Chlorhexidine Gluconate () 15 ml PO BID [facility] Last Admin: 08/17/19 08:41 Dose: 15 ml Documented by: Dextrose (D50w Syringe) 0 gm IV X1 PRN; Protocol PRN Reason: Hypoglycemia Enoxaparin Sodium (Lovenox) 100 mg SC Q12 [facility] Last Admin: 08/17/19 07:50 Dose: Not Given Documented by: Glucagon () 1 mg IM .X1 PRN PRN Reason: Hypoglycemia Guaifenesin (Robitussin) 10 ml GT Q6 [facility] Last Admin: 08/17/19 11:38 Dose: 10 ml Documented by: Sodium Chloride () 250 mls @ 15 mls/hr IV .[id number] PRN PRN Reason: Saline Flush Sodium Chloride () 250 mls @ 15 mls/hr IV .[id number] PRN PRN Reason: Additional IVPB Infusion Fentanyl () 100 mls @ 5 mls/hr IV UD [facility]; Protocol Last Titration: 08/17/19 09:00 Dose: 200 mcg/hr, 20 mls/hr Documented by: Propofol (Diprivan) 1,000 mg in 100 mls @ 6 mls/hr CONT INF .Q12H [facility]; Protocol Last Titration: 08/17/19 09:00 Dose: 40 mcg/kg/min, 24 mls/hr Documented by: Enteral Nutritional Formula (Vital Af 1.2 Emanuel Liquid) 1,000 mls @ 65 mls/hr GT .[id number] [facility] Last Admin: 08/16/19 20:56 Dose: 65 mls/hr Documented by: Norepinephrine Bitartrate 8 mg (/ Sodium Chloride) 250 mls @ 9.375 mls/hr CONT INF .[id number] [facility]; Protocol Last Titration: 08/17/19 08:00 Dose: 2 mcg/min, 3.8 mls/hr Documented by: Lansoprazole (Lansoprazole) 15 mg GT BID [facility] Last Admin: 08/17/19 11:39 Dose: 15 mg Documented by: Levothyroxine Sodium (Synthroid) 100 mcg GT DAILY [facility] Last Admin: 08/17/19 11:39 Dose: 100 mcg Documented by: Ondansetron HCl (Zofran) 4 mg IV Q8H PRN PRN PRN Reason: NAUSEA/VOMITING Phenytoin Sodium (Dilantin) 200 mg GT DAILY [facility] Last Admin: 08/17/19 11:38 Dose: 200 mg Documented by: Quetiapine Fumarate (Seroquel) 100 mg GT BID [facility] Sodium Chloride () 10 - 40 ml IV UD PRN PRN Reason: SALINE FLUSH Last Admin: 08/17/19 08:41 Dose: 10 ml Documented by: STROKE Vital Signs/Narrative: Vital Signs Pulse Resp BP Pulse Ox 08/17/19 11:04 80 33 H 93 08/17/19 08:59 79 30 H 92 08/17/19 08:00 137/65 H Medical Necessity - Tobacco Use Smoking Status: Never smoker Assessment/Plan All Active Problems (Last Reviewed 08/13/19 @ 01:[address] Matt Espinoza MD) Pneumonia (Acute) Hypoxia (Acute) COVID-19 (Acute) SARS-associated coronavirus infection (Acute) assessment 1. acute hypoxic respiratory failure 2. COVID-19 3. NSTEMI 4. LI plan: 1. received convalescent plasma on 08/12 2. vent mgmt per CCM 3. conitnue LMWH and ASA 4. check echocardiogram 5. continue pip/tazo 6. on norepi, will have TLC placed today. Inpatient E&M: 64897 Subs Hosp L2
--- NOTE | 2019-08-17 12:07 | EKG12_ITS ---
Test Reason : Blood Pressure : / mmHG Vent. Rate : 089 BPM Atrial Rate : 089 BPM P-R Int : 226 ms QRS Dur : 090 ms QT Int : 338 ms P-R-T Axes : 067 -51 039 degrees QTc Int : 411 ms Sinus rhythm with 1st degree A-V block Left anterior fascicular block Abnormal ECG When compared with ECG of 16-AUG-2019 04:26, MANUAL COMPARISON REQUIRED, DATA IS UNCONFIRMED Confirmed by PRINCE MACHADO, RILEY ([id number]), supervising editor trailer JAX MOLINA ([id number]) on 08/23/2019 11:53:17 AM Referred By: Confirmed By:GEORGE MORRISON MD
--- NOTE | 2019-08-17 12:15 | NURSING ---
1215 C Brant ISBELL present in pt room, prep for line placement 1220 HR 90 R 29 BP 120/52 (69) SpO2 94 1225 HR 89 R 32 BP 135/52 (76) SpO2 96 1230 HR 89 R 34 BP 124/57 (76) SpO2 [address] radiology called for CXR
[2019-08-17] MEDS: LORazepam 2 MG/ML Syringe IV (12:30)
--- NOTE | 2019-08-17 13:00 | RAD_ITS ---
STUDY: X-RAY CHEST REASON FOR EXAM: Male, 79 years old. LINE PLACEMENT, R/O PNEUMO TECHNIQUE: AP portable upright view of the chest on 2 images. The patient shoulders rotated to the left. COMPARISON: Portable AP semierect chest x-ray on 2 images 0827 hours. FINDINGS: New left central venous catheter has its tip in the superior vena cava. No pneumothorax. Tip of the endotracheal tube is roughly a centimeter above the syd. Nasogastric tube passes the diaphragm, tip outside the [id number]. The lungs are better expanded. There is improved aeration in the inferior lung bases. The midlung to basilar component of the bilateral infiltrates are otherwise unchanged, and there is persistent patchy right suprahilar density as well. There is no demonstrated pleural abnormality. Normal size heart. Normal mediastinum and dane. Normal peripheral pulmonary arteries in the aerated segments. Normal visualized aortic arch and descending thoracic aorta. There are stable degenerative changes of the visualized thoracic spine. 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 There is no demonstrated abnormality of the visualized soft tissue structures of the upper abdomen. RAD/CXR for Line Placement IMPRESSION: 1. Left central venous catheter is in the superior vena cava. No pneumothorax. 2. Endotracheal and nasogastric tubes unchanged. 3. Improved aeration at the lung bases. The bilateral infiltrates are otherwise stable. Electronically Signed: Alfonzo Lucero MD at 13:28 EDT , Service support ,
[2019-08-17] MEDS: Propofol 10MG/Ml 1,000 MG/100 ML Bottle 18 MG CONT INF ×3 (13:10→21:05)
--- NOTE | 2019-08-17 14:11 | PCM.OPRPT ---
Report of Operation Date of Procedure: 08/17/19 Surgery/Procedure Performed:: Triple-lumen catheter insertion Description of Surgical Findings:: Central line placement procedure note Indication: IV access/hemodynamic instability/vasoactive medications Procedure: A time-out was completed to verify correct patient, indication, medication allergies, procedure, coagulation studies, informed consent signed, and equipment needed. The patient was placed in the supine position for a central line placement to the rt/left IJ rt/left femoral vein. The patients left neck was prepped using chlorhexidine and a full body sterile drape was applied. 1% lidocaine was used to anesthetize the surrounding skin. A 7fr 20 cm blue guard triple lumen catheter introduced into the internal jugular vein using the modified Seldinger technique with the assistance of ultrasound. The catheter was threaded smoothly over the guidewire, the guidewire was removed easily, nonpulsatile blood returned. All ports were aspirated of air and flushed with sterile saline. The catheter was sutured in place and covered with an occlusive dressing impregnated with chlorhexidine. Post-procedure: The patient tolerated the procedure well. Vital signs remained stable. EBL 5 cc. No complications. Chest X Ray ordered to confirm tip placement and the absence of pneumothorax. Procedures: [id number] Insert Non-tunnel CV Cath
[2019-08-17] MEDS: Enoxaparin 100 MG/ML Syringe SC (20:55)
[2019-08-17] MEDS: Vital AF 1.2 Cal Liquid 1,000 ML 65 ML GT (21:00)
[2019-08-18] VITALS (37 sets, daily range): BP systolic 86–138; BP diastolic 41–77; PULSE 61–92; RESP 14–39; TEMP 38–38.4; O2SAT 91–94
[2019-08-18] MEDS: Propofol 10MG/Ml 1,000 MG/100 ML Bottle 21 MG CONT INF ×2 (01:53→03:50)
[2019-08-18] MEDS: fentaNYL drip 100 ML 20 MCG IV ×5 (02:05→23:26)
[2019-08-18 03:58] LABS: Absolute Lymphocyte Count 0.38 X10^3/uL (0.83-4.51); Absolute Neutrophil Count 7.8 X10^3/uL (2.0-7.7); Basophil# 0.03 X10^3/uL; Basophil% 0.4 % (0-1); Eosinophil# 0.08 X10^3/uL; Eosinophils% 0.9 % (0-5); Hematocrit 35.3 % (40-54); Hemoglobin 11.7 g/dL (13.0-16.5); Lymphocyte # 0.38 X10^3/ul (4.0); Lymphocyte % 4.5 % (19-41); Mean Corp Hgb Conc 33.1 g/dL (32-36); Mean Corpuscular Hgb 34.4 pg (27.0-32.0); Mean Corpuscular Volume 103.8 fL (80-94); Mean Platelet Vol. 9.4 fl (6.2-12.0); Monocyte# 0.15 X10^3/uL; Monocyte% 1.8 % (0-10); NRBC Flagged by Analyzer 0.4 % (0-5); Neutrophil # 7.75 X10^3/uL (2.7-7.7); Neutrophil % 91.1 % (47-70); POSITIVE COUNT YES; POSITIVE DIFFERENTIAL YES; POSITIVE MORPHOLOGY YES; RBC Distribution Width CV 15.7 % (11.6-14.6); RBC Distribution Width SD 59.9 fl (35.1-43.9); White Blood Count 8.5 K/mm3 (4.4-11.0)
[2019-08-18 04:13] LABS: Differential Indicated SCAN CRITERIA MET; Platelet Count 780 K/mm3 (150-450)
[2019-08-18] MEDS: TITRATION PARAMETER CHANGE 1 EACH IV (04:47)
[2019-08-18 05:01] LABS: Magnesium 3.1 mg/dL (1.6-2.6); Phosphorus 2.8 mg/dL (2.5-4.9)
[2019-08-18 05:02] LABS: BUN 76 mg/dL (7-18); Creatinine, Serum 2.62 mg/dL (0.70-1.30); Estimated Creatinine Clearance 23.99 ml/min; Glucose 192 mg/dL (74-106)
[2019-08-18 05:03] LABS: Anion Gap 8 (5-15); Chloride 108 mmol/L (98-107); EST Glomerular Filtration Rate 25 mL/min (>60); Est Glom Filt Rate - Afr Amer 31 mL/min (>60); Potassium 4.3 mmol/L (3.5-5.1); Sodium Level 140 mmol/L (136-145)
[2019-08-18] MEDS: Acetaminophen 650 MG/20 ML UDC GT (05:12)
[2019-08-18] MEDS: guaiFENesin 10 ML UDC (200MG/10ML) GT ×3 (05:12→17:24)
[2019-08-18] MEDS: 0.9% Saline Lock 10 ML Syringe IV ×2 (05:20→14:41)
[2019-08-18 05:25] LABS: Platelet Estimate MKD INC (ADEQ)
[2019-08-18 05:26] LABS: Anisocytosis RARE; Polychromasia RARE
[2019-08-18 05:27] LABS: Macrocytosis 1+
--- NOTE | 2019-08-18 07:42 | PN_ITS ---
Subjective: Patient did okay overnight. Patient was able to be taken off of Levophed therapy. Unfortunately, Seroquel had to be discontinued secondary to a pr olonging QTC. Agitation and vent synchrony has been suboptimal since that time. Patient has remained persistently febrile. Oxygenation appears to be relatively stable, but patient did not qualify for spontaneous breathing trial this morning. No bleeding complications have been reported with anticoagulation. General: - - Intubated and sedated. RASS +1. Fair to poor vent synchrony. Some auto PEEP appreciated on flow volume loops of the ventilator HEENT: Atraumatic, PERRLA, EOMI, Normocephalic, - - Diaphoretic. Scleral injection. Oral: Moist Mucosa, No Gingival or Mucosal Lesions/ Ulcerations Neck: Supple, No JVD, No Nodes, Trachea Midline Lungs: No wheeze, No rales, Diminished, Rhonchi - Bilateral, - - Symmetric expansion. Cardiovascular: Regular rate, Regular Rhythm, Normal S1, Normal S2, No murmurs, No rub noted, No Gallop Abdomen: Bowel Sounds Present, Soft, Non Tender, Distended - Slightly Extremities: No clubbing, No cyanosis, Edema - 2+ anasarca Skin: No rashes, No breakdown Musculoskeletal: No Tenderness to Palpation of Joints or Extremities Lymphatic: No Cervical, Supraclavicular, or Inguinal Adenopathy Neurological: - - Spontaneous movement of all extremities. Pupils equal and reactive. Sensation appears intact. Psych/Mental Status: Restless Vital Signs Temp Pulse Resp BP Pulse Ox 38.3 C H 80 21 H 120/67 92 08/18/19 06:00 08/18/19 06:00 08/18/19 06:00 08/18/19 06:00 08/18/19 06:00 Oxygen Flow Rate (L/min) 50 Oxygen Delivery Method Mechanical Ventilator Weight: 100.6 kg Body Mass Index (BMI) 31.1 Intake and Output for Last 24 Hours 08/16/19 08/17/19 08/18/19 23:59 23:59 23:59 Intake Total 3700.81 / 3744.41 3000.83 / 3018.83 593.87 / 593.87 Output Total 1240 / 1240 2260 / 2260 250 / 250 Balance 2460.81 / 2504.41 740.83 / 758.83 343.87 / 343.87 Labs (Last 48 Hours) 08/17/19 08/17/19 08/17/19 04:50 04:50 04:50 WBC 8.6 RBC 3.42 L Hgb 11.7 L Hct 36.5 L MCV 106.7 H MCH 34.2 H MCHC 32.1 RDW Std Deviation 63.0 H RDW Coeff of Nacho 16.0 H Plt Count 735 H MPV 9.1 Immature Gran % (Auto) 1.300 H Neut % (Auto) 89.3 H Lymph % (Auto) 4.[address] [place] % (Auto) 2.3 Eos % (Auto) 2.1 Baso % (Auto) 0.3 Absolute Neuts (auto) 7.7 Absolute Lymphs (auto) 0.40 L Nucleated RBC % 0 Differential Comment SCANNED Diff Path Review Reactive Lymphocytes RARE Platelet Estimate Polychromasia Anisocytosis Macrocytosis Specimen Type Sample Site pH Bicarbonate Actual POC Total CO2 Base Excess O2 Saturation O2 % ABG pCO2 ABG pO2 Oziel Test Respiration Rate O2 Delivery Device Vent Mode Tidal Volume POC PEEP Blood Gas Notified Whom Blood Gas Notified Time Sodium 137 Potassium 4.3 Chloride 108 H Carbon Dioxide 23.0 Anion Gap 6 BUN 62 H Creatinine 2.34 H Estim Creat Clear Calc 26.86 Est GFR (MDRD) Af Amer 35 L Est GFR (MDRD) Non-Af 29 L BUN/Creatinine Ratio 26.5 H Glucose 168 H Calcium 7.6 L Phosphorus Magnesium Ferritin 1061 H C-React Prot Ext Range 183.00 H Procalcitonin 2.28 H 08/17/19 08/18/19 08/18/19 07:48 02:20 02:20 WBC 8.5 RBC 3.40 L Hgb 11.7 L Hct 35.3 L MCV 103.8 H MCH 34.4 H MCHC 33.1 RDW Std Deviation 59.9 H RDW Coeff of Nacho 15.7 H Plt Count 780 H* MPV 9.4 Immature Gran % (Auto) 1.300 H Neut % (Auto) 91.1 H Lymph % (Auto) 4.[address] [place] % (Auto) 1.8 Eos % (Auto) 0.9 Baso % (Auto) 0.4 Absolute Neuts (auto) 7.8 H Absolute Lymphs (auto) 0.38 L Nucleated RBC % 0.4 Differential Comment Diff Path Review May foll Reactive Lymphocytes Platelet Estimate MKD INC Polychromasia RARE Anisocytosis RARE Macrocytosis 1+ Specimen Type ART Sample Site R RADIAL pH 7.32 L Bicarbonate Actual 22.2 POC Total CO2 23 Base Excess -4 L O2 Saturation 86 L O2 % 55 ABG pCO2 42.9 ABG pO2 55 L Oziel Test POS Respiration Rate 14 O2 Delivery Device Vent Vent Mode A-C Tidal Volume 450 POC PEEP 10 Blood Gas Notified Whom ICU MD Blood Gas Notified Time 748 Sodium Potassium Chloride Carbon Dioxide Anion Gap BUN Creatinine Estim Creat Clear Calc Est GFR (MDRD) Af Amer Est GFR (MDRD) Non-Af BUN/Creatinine Ratio Glucose Calcium Phosphorus 2.8 Magnesium 3.1 H Ferritin C-React Prot Ext Range Procalcitonin 08/18/19 02:20 WBC RBC Hgb Hct MCV MCH MCHC RDW Std Deviation RDW Coeff of Nacho Plt Count MPV Immature Gran % (Auto) Neut % (Auto) Lymph % (Auto) [place] % (Auto) Eos % (Auto) Baso % (Auto) Absolute Neuts (auto) Absolute Lymphs (auto) Nucleated RBC % Differential Comment Diff Path Review Reactive Lymphocytes Platelet Estimate Polychromasia Anisocytosis Macrocytosis Specimen Type Sample Site pH Bicarbonate Actual POC Total CO2 Base Excess O2 Saturation O2 % ABG pCO2 ABG pO2 Oziel Test Respiration Rate O2 Delivery Device Vent Mode Tidal Volume POC PEEP Blood Gas Notified Whom Blood Gas Notified Time Sodium 140 Potassium 4.3 Chloride 108 H Carbon Dioxide 24.0 Anion Gap 8 BUN 76 H Creatinine 2.62 H Estim Creat Clear Calc 23.99 Est GFR (MDRD) Af Amer 31 L Est GFR (MDRD) Non-Af 25 L BUN/Creatinine Ratio 29.0 H Glucose 192 H Calcium 8.0 L Phosphorus Magnesium Ferritin C-React Prot Ext Range Procalcitonin Clinical Impression(s) from Imaging Studies Chest X-Ray 08/17/19 13:00 IMPRESSION: 1. Left central venous catheter is in the superior vena cava. No pneumothorax. 2. Endotracheal and nasogastric tubes unchanged. 3. Improved aeration at the lung bases. The bilateral infiltrates are otherwise stable. Electronically Signed: Alfonzo Lucero MD at 13:28 EDT , Service support , Medical Necessity - Tobacco Use Smoking Status: Never smoker Assessment/Plan All Active Problems (Last Reviewed 08/13/19 @ 01:[address] Matt Espinoza MD) Pneumonia (Acute) Hypoxia (Acute) COVID-19 (Acute) SARS-associated coronavirus infection (Acute) RECOMMENDATIONS: 1. Continue to wean FiO2 and PEEP to maintain oxygen saturations at or above 90%. 2. Continue empiric antimicrobials and systemic anticoagulation 3. Await central access, but may need to transition from propofol to Precedex 4. Continue tube feeds as tolerated. 5. Discontinue Seroquel therapy. Add Ativan as needed 6. Attempt diuresis through intermittent Lasix 7. Continue appropriate GI prophylaxis. IMPRESSIONS: 1. Acute hypoxemic respiratory failure secondary to COVID-19 infection The patient did okay over the last 24 hours. Patient has been able to come off of Levophed intermittently. Patient tolerating discontinuation of paralytic. Patient currently off of antibiotics. Oxygenation status appears to be stabilizing. Patient has been persistently febrile. We will continue with propofol and fentanyl. Unfortunately, Seroquel had to be discontinued secondary to QT prolongation. Will add Ativan for breakthrough agitation. Patient did receive convalescent serum. 2. Acute kidney injury Likely related to ATN in the setting of #1, along with hemodynamic instability which was generated as a consequence of sedative utilization. Low- dose Levophed has been utilized to stabilize hemodynamics initially. Continue to monitor urine output. No current indication for renal replacement therapy. Avoid nephrotoxic medications. Will attempt diuretic therapy. If renal function not improving, likely get nephrology to see the patient tomorrow 3. Troponin elevation Minimal troponin elevation. Echocardiogram shows preserved ejection fraction. We will hold off on cardiology evaluation at this time. Clinical suspicion for supply demand mismatch leading to elevated troponins. Patient could be evaluated for coronary artery disease as an outpatient. Continue telemetry. 4. Unspecified seizure disorder/hypothyroidism/hypertension/obesity Complicates care, management, recovery and prognosis. Continue home medications as indicated. TIME: 35 minutes of critical care time, independent of procedures, was spent addressing the patient's acute hypoxemic respiratory failure secondary to COVID- 19 infection, acute kidney injury, troponin elevation, review of all data and collaboration with the care team. (5:30 AM to 6:30 AM) 9xxxx: [id number] Critical care first hour
[2019-08-18] MEDS: Propofol 10MG/Ml 1,000 MG/100 ML Bottle 21.1 MG CONT INF ×4 (08:40→21:25)
[2019-08-18] MEDS: Furosemide 40 MG/4 ML Vial IV (08:41)
[2019-08-18] MEDS: Phenytoin Na 100 MG/4 ML UDC 200 MG GT (10:49)
[2019-08-18] MEDS: Chlorhexidine 15 ML PO ×2 (10:49→21:24)
[2019-08-18] MEDS: Enoxaparin 100 MG/ML Syringe SC (10:49)
[2019-08-18] MEDS: Lansoprazole 15 MG Capsule.DR GT ×2 (10:49→21:24)
[2019-08-18] MEDS: Aspirin 81 MG TAB.CHEW GT (10:49)
[2019-08-18] MEDS: Levothyroxine 100 MCG Tablet GT (10:49)
[2019-08-18 12:06] LABS: Pathologist Review Reviewed
[2019-08-18] MEDS: Insulin Lispro 100 UNIT/ML INSULN.PEN SC ×2 (12:07→17:24)
[2019-08-18 12:16] LABS: Bedside Glucose 181 mg/dL (70-110)
--- NOTE | 2019-08-18 14:09 | PCM.PN.HOSP ---
Patient Problems: Active and Suspected Problems (Last Reviewed 08/13/19 @ 01:[address] Matt Espinoza MD) Pneumonia (Acute) Hypoxia (Acute) COVID-19 (Acute) SARS-associated coronavirus infection (Acute) Reason for Visit: COVID Subjective: Still febrile on the vent. Vitals/I&O's: Vital Signs Temp Pulse Resp BP Pulse Ox 38.4 C H 67 27 H 91/46 L 93 08/18/19 12:00 08/18/19 13:19 08/18/19 13:19 08/18/19 13:00 08/18/19 13:19 Oxygen Flow Rate (L/min) 50 Oxygen Delivery Method Mechanical Ventilator Weight: 100.6 kg Body Mass Index (BMI) 31.1 Intake and Output for Last 24 Hours 08/16/19 08/17/19 08/18/19 23:59 23:59 23:59 Intake Total 3700.81 / 3744.41 3000.83 / 3018.83 1272.17 / 1272.17 Output Total 1240 / 1240 2260 / 2260 500 / 500 Balance 2460.81 / 2504.41 740.83 / 758.83 772.17 / 772.17 HEENT: Atraumatic, Normocephalic Oral: - - ETT, OG in place. Neck: No Nodes, Thyroid Normal Size and Texture Lungs: - - coarse breath sounds anteriorly. Cardiovascular: Regular rate, Regular Rhythm, Normal S1, Normal S2, No murmurs Abdomen: Bowel Sounds Present, Soft, Non Tender, Non-Distended, No Hepato-splenomegaly Extremities: No edema, No Calf Tenderness Neurological: - Microbiology Past 72 Hours 08/12/19 21:37 Blood Culture (Wb) - Anticubital Right Blood Culture - Final No growth in 5 days. 08/12/19 21:34 Blood Culture (Wb) - Anticubital Left Blood Culture - Final No growth in 5 days. Laboratory Results 08/18/19 02:20: Phosphorus 2.8, Magnesium 3.1 H 08/18/19 02:20: WBC 8.5, RBC 3.40 L, Hgb 11.7 L, Hct 35.3 L, MCV 103.8 H, MCH 34.4 H, MCHC 33.1, RDW Std Deviation 59.9 H, RDW Coeff of Nacho 15.7 H, Plt Count 780 H*, MPV 9.4, Immature Gran % (Auto) 1.300 H, Neut % (Auto) 91.1 H, Lymph % (Auto) 4.5 L, Sierra % (Auto) 1.8, Eos % (Auto) 0.9, Baso % (Auto) 0.4, Absolute Neuts (auto) 7.8 H, Absolute Lymphs (auto) 0.38 L, Nucleated RBC % 0.4, Diff Path Review Reviewed, Platelet Estimate MKD INC, Polychromasia RARE, Anisocytosis RARE, Macrocytosis 1+ 08/18/19 02:20: Sodium 140, Potassium 4.3, Chloride 108 H, Carbon Dioxide 24.0, Anion Gap 8, BUN 76 H, Creatinine 2.62 H, Estim Creat Clear Calc 23.99, Est GFR (MDRD) Af Amer 31 L, Est GFR (MDRD) Non-Af 25 L, BUN/Creatinine Ratio 29.0 H, Glucose 192 H, Calcium 8.0 L 08/18/19 12:05: POC Glucose 181 H Current Medications Acetaminophen (Tylenol Liquid) 650 mg GT Q4H PRN PRN PRN Reason: Pain Score 1-10/Temp > 100.7 F Last Admin: 08/18/19 05:12 Dose: 650 mg Documented by: Aspirin (Aspirin, Baby) 81 mg GT DAILY@1000 [facility] Last Admin: 08/18/19 10:49 Dose: 81 mg Documented by: Chlorhexidine Gluconate () 15 ml PO BID [facility] Last Admin: 08/18/19 10:49 Dose: 15 ml Documented by: Dextrose (D50w Syringe) 0 gm IV X1 PRN; Protocol PRN Reason: Hypoglycemia Enoxaparin Sodium (Lovenox) 100 mg SC DAILY [facility] Last Admin: 08/18/19 10:49 Dose: 100 mg Documented by: Glucagon () 1 mg IM .X1 PRN PRN Reason: Hypoglycemia Guaifenesin (Robitussin) 10 ml GT Q6 [facility] Last Admin: 08/18/19 10:49 Dose: 10 ml Documented by: Sodium Chloride () 250 mls @ 15 mls/hr IV .[id number] PRN PRN Reason: Saline Flush Sodium Chloride () 250 mls @ 15 mls/hr IV .[id number] PRN PRN Reason: Additional IVPB Infusion Fentanyl () 100 mls @ 5 mls/hr IV UD [facility]; Protocol Last Titration: 08/18/19 13:00 Dose: 200 mcg/hr, 20 mls/hr Documented by: Propofol (Diprivan) 1,000 mg in 100 mls @ 6.036 mls/hr CONT INF .Q12H [facility]; Protocol Last Admin: 08/18/19 13:30 Dose: 35 mcg/kg/min, 21.1 mls/hr Documented by: Enteral Nutritional Formula (Vital Af 1.2 Emanuel Liquid) 1,000 mls @ 65 mls/hr GT .[id number] [facility] Last Admin: 08/18/19 05:33 Dose: Not Given Documented by: Insulin Human Lispro (Humalog Kwikpen (Bkc)) 0 unit SC Q6 [facility]; Protocol Last Admin: 08/18/19 12:07 Dose: 1 unit Documented by: Lansoprazole (Lansoprazole) 15 mg GT BID [facility] Last Admin: 08/18/19 10:49 Dose: 15 mg Documented by: Levothyroxine Sodium (Synthroid) 100 mcg GT DAILY [facility] Last Admin: 08/18/19 10:49 Dose: 100 mcg Documented by: Lorazepam (Ativan) 2 mg IV Q6H PRN PRN PRN Reason: AGITATION Ondansetron HCl (Zofran) 4 mg IV Q8H PRN PRN PRN Reason: NAUSEA/VOMITING Phenytoin Sodium (Dilantin) 200 mg GT DAILY [facility] Last Admin: 08/18/19 10:49 Dose: 200 mg Documented by: Sodium Chloride () 10 - 40 ml IV UD PRN PRN Reason: SALINE FLUSH Last Admin: 08/18/19 05:20 Dose: 40 ml Documented by: STROKE Vital Signs/Narrative: Vital Signs Temp Pulse Resp BP BP Pulse Ox 08/18/19 13:19 67 27 H 93 08/18/19 13:00 66 28 H 91/46 L 92 08/18/19 12:00 38.4 C H 72 24 H 102/65 93 08/18/19 11:53 73 32 H 92 08/18/19 11:19 74 08/18/19 11:00 38.3 C H 77 24 H 95/47 L 92 Medical Necessity - Tobacco Use Smoking Status: Never smoker Assessment/Plan All Active Problems (Last Reviewed 08/13/19 @ 01:[address] Matt Espinoza MD) Pneumonia (Acute) Hypoxia (Acute) COVID-19 (Acute) SARS-associated coronavirus infection (Acute) 1. acute hypoxic respiratory failure still on vent, FiO2 40% 2/2 COVID +/- PNA +/- ALI had been on pip/tazo, but discontinued 08/16. [facility], DC'd by [facility] during rounds Will defer to ID if abx to be resumed or changed received furosemide 40 08/17 2. COVID-19 received convalescent plasma on 08/12 3. NSTEMI: troponins peaked at 1.89 suspect demand ischemia echo shows EF 65%. on LMWH and ASA consider cardiology consultation depending on clinical course 4. LI non-oliguric may need nephrology consultation 5. VTE proph: anticoagulated. Inpatient E&M: 908[address] [facility] L3
[2019-08-18] MEDS: Furosemide 100 MG/10 ML Vial 80 MG IV (14:39)
[2019-08-18] MEDS: Vital AF 1.2 Cal Liquid 1,000 ML 65 ML GT (15:03)
[2019-08-18] MEDS: LORazepam 2 MG/ML Syringe IV (15:03)
--- NOTE | 2019-08-18 15:54 | PN.ID_ITS ---
Patient Problems: Active and Suspected Problems (Last Reviewed 08/13/19 @ 01:[address] Matt Espinoza MD) Pneumonia (Acute) Hypoxia (Acute) COVID-19 (Acute) SARS-associated coronavirus infection (Acute) Subjective: On vent, still fever. - Physical Exam Vitals/I&O's: Vital Signs Temp Pulse Resp BP Pulse Ox 100.7 F H 76 31 H 116/51 L 93 08/18/19 15:00 08/18/19 15:49 08/18/19 15:49 08/18/19 15:00 08/18/19 15:49 Oxygen Flow Rate (L/min) 40 Oxygen Delivery Method Mechanical Ventilator Weight: 100.6 kg Body Mass Index (BMI) 31.1 Intake and Output for Last 24 Hours 08/16/19 08/17/19 08/18/19 23:59 23:59 23:59 Intake Total 3700.81 / 3744.41 3000.83 / 3018.83 1272.17 / 1272.17 Output Total 1240 / 1240 2260 / 2260 500 / 500 Balance 2460.81 / 2504.41 740.83 / 758.83 772.17 / 772.17 General: Non-Cooperative Lungs: - - relatively clear Cardiovascular: Regular rate, Regular Rhythm Abdomen: Soft, Non Tender, Non-Distended Skin: No rashes Microbiology Past 72 Hours 08/18/19 10:02 Sputum, Induced/Lukens Gram Stain - Final 08/12/19 21:37 Blood Culture (Wb) - Anticubital Right Blood Culture - Final No growth in 5 days. 08/12/19 21:34 Blood Culture (Wb) - Anticubital Left Blood Culture - Final No growth in 5 days. Laboratory Results 08/18/19 02:20: Phosphorus 2.8, Magnesium 3.1 H 08/18/19 02:20: WBC 8.5, RBC 3.40 L, Hgb 11.7 L, Hct 35.3 L, MCV 103.8 H, MCH 34.4 H, MCHC 33.1, RDW Std Deviation 59.9 H, RDW Coeff of Nacho 15.7 H, Plt Count 780 H*, MPV 9.4, Immature Gran % (Auto) 1.300 H, Neut % (Auto) 91.1 H, Lymph % (Auto) 4.5 L, [place] % (Auto) 1.8, Eos % (Auto) 0.9, Baso % (Auto) 0.4, Absolute Neuts (auto) 7.8 H, Absolute Lymphs (auto) 0.38 L, Nucleated RBC % 0.4, Diff Path Review Reviewed, Platelet Estimate MKD INC, Polychromasia RARE, Anisocytosis RARE, Macrocytosis 1+ 08/18/19 02:20: Sodium 140, Potassium 4.3, Chloride 108 H, Carbon Dioxide 24.0, Anion Gap 8, BUN 76 H, Creatinine 2.62 H, Estim Creat Clear Calc 23.99, Est GFR (MDRD) Af Amer 31 L, Est GFR (MDRD) Non-Af 25 L, BUN/Creatinine Ratio 29.0 H, Glucose 192 H, Calcium 8.0 L 08/18/19 12:05: POC Glucose 181 H Current Medications Acetaminophen (Tylenol Liquid) 650 mg GT Q4H PRN PRN PRN Reason: Pain Score 1-10/Temp > 100.7 F Last Admin: 08/18/19 05:12 Dose: 650 mg Documented by: Aspirin (Aspirin, Baby) 81 mg GT DAILY@1000 [facility] Last Admin: 08/18/19 10:49 Dose: 81 mg Documented by: Chlorhexidine Gluconate () 15 ml PO BID [facility] Last Admin: 08/18/19 10:49 Dose: 15 ml Documented by: Dextrose (D50w Syringe) 0 gm IV X1 PRN; Protocol PRN Reason: Hypoglycemia Enoxaparin Sodium (Lovenox) 100 mg SC DAILY [facility] Last Admin: 08/18/19 10:49 Dose: 100 mg Documented by: Glucagon () 1 mg IM .X1 PRN PRN Reason: Hypoglycemia Guaifenesin (Robitussin) 10 ml GT Q6 [facility] Last Admin: 08/18/19 10:49 Dose: 10 ml Documented by: Sodium Chloride () 250 mls @ 15 mls/hr IV .[id number] PRN PRN Reason: Saline Flush Sodium Chloride () 250 mls @ 15 mls/hr IV .[id number] PRN PRN Reason: Additional IVPB Infusion Fentanyl () 100 mls @ 5 mls/hr IV [facility] [place]; Protocol Last Titration: 08/18/19 13:00 Dose: 200 mcg/hr, 20 mls/hr Documented by: Propofol (Diprivan) 1,000 mg in 100 mls @ 6.036 mls/hr CONT INF .Q12H [facility]; Protocol Last Admin: 08/18/19 13:30 Dose: 35 mcg/kg/min, 21.1 mls/hr Documented by: Enteral Nutritional Formula (Vital Af 1.2 Emanuel Liquid) 1,000 mls @ 65 mls/hr GT .[id number] [facility] Last Admin: 08/18/19 15:03 Dose: 65 mls/hr Documented by: Insulin Human Lispro (Humalog Kwikpen (Bkc)) 0 unit SC Q6 [facility]; Protocol Last Admin: 08/18/19 12:07 Dose: 1 unit Documented by: Lansoprazole (Lansoprazole) 15 mg GT BID [facility] Last Admin: 08/18/19 10:49 Dose: 15 mg Documented by: Levothyroxine Sodium (Synthroid) 100 mcg GT DAILY [facility] Last Admin: 08/18/19 10:49 Dose: 100 mcg Documented by: Lorazepam (Ativan) 2 mg IV Q6H PRN PRN PRN Reason: AGITATION Last Admin: 08/18/19 15:03 Dose: 2 mg Documented by: Ondansetron HCl (Zofran) 4 mg IV Q8H PRN PRN PRN Reason: NAUSEA/VOMITING Phenytoin Sodium (Dilantin) 200 mg GT DAILY [facility] Last Admin: 08/18/19 10:49 Dose: 200 mg Documented by: Sodium Chloride () 10 - 40 ml IV UD PRN PRN Reason: SALINE FLUSH Last Admin: 08/18/19 14:41 Dose: 40 ml Documented by: Medical Necessity - Tobacco Use Smoking Status: Never smoker Route of nutrition/ use of supplements: [] Nutritional Intake: [] IV Site: [] Neil Catheter: [] - Assessment/Plan Antibiotics: [] Assessment/Plan: [] Active and Suspected Problems (Last Reviewed 08/13/19 @ 01:[address] Matt Espinoza MD) Pneumonia (Acute) Hypoxia (Acute) COVID-19 (Acute) SARS-associated coronavirus infection (Acute) COVID with hypoxic resp failure - s/p convalescent plasma 08/12. MRSA screen neg. Completed short course empiric zosyn. Cxs neg so far. O2 and inflammatory markers improving. Will follow
[2019-08-18 17:41] LABS: Bedside Glucose 159 mg/dL (70-110)
[2019-08-19] VITALS (40 sets, daily range): BP systolic 82–144; BP diastolic 42–72; PULSE 57–84; RESP 14–38; TEMP 37–38.5; O2SAT 90–98
[2019-08-19] MEDS: guaiFENesin 10 ML UDC (200MG/10ML) GT ×5 (00:21→23:21)
[2019-08-19 00:51] LABS: Bedside Glucose 149 mg/dL (70-110)
[2019-08-19] MEDS: Propofol 10MG/Ml 1,000 MG/100 ML Bottle 15.1 MG CONT INF (02:15)
[2019-08-19] MEDS: Acetaminophen 650 MG/20 ML UDC GT (05:02)
[2019-08-19] MEDS: fentaNYL drip 100 ML 17.5 MCG IV ×3 (05:20→22:11)
[2019-08-19] MEDS: Propofol 10MG/Ml 1,000 MG/100 ML Bottle 18.1 MG CONT INF (05:20)
[2019-08-19 05:25] LABS: Absolute Lymphocyte Count 0.37 X10^3/uL (0.83-4.51); Absolute Neutrophil Count 6.2 X10^3/uL (2.0-7.7); Basophil# 0.03 X10^3/uL; Basophil% 0.4 % (0-1); Eosinophil# 0.16 X10^3/uL; Eosinophils% 2.2 % (0-5); Hematocrit 34.5 % (40-54); Hemoglobin 11.5 g/dL (13.0-16.5); Lymphocyte # 0.37 X10^3/ul (4.0); Lymphocyte % 5.1 % (19-41); Mean Corp Hgb Conc 33.3 g/dL (32-36); Mean Corpuscular Hgb 34.5 pg (27.0-32.0); Mean Corpuscular Volume 103.6 fL (80-94); Mean Platelet Vol. 9.4 fl (6.2-12.0); Monocyte# 0.14 X10^3/uL; Monocyte% 1.9 % (0-10); NRBC Flagged by Analyzer 0.3 % (0-5); Neutrophil # 6.18 X10^3/uL (2.7-7.7); Neutrophil % 85.7 % (47-70); POSITIVE COUNT YES; POSITIVE DIFFERENTIAL YES; POSITIVE MORPHOLOGY YES; RBC Distribution Width SD 62.1 fl (35.1-43.9); Red Blood Count 3.33 M/mm3 (4.6-6.2); White Blood Count 7.2 K/mm3 (4.4-11.0)
[2019-08-19 05:37] LABS: Anion Gap 9 (5-15); BUN 98 mg/dL (7-18); BUN/Creat Ratio 31.1 RATIO (10-20); Calcium,Total 8.3 mg/dL (8.5-10.1); Chloride 108 mmol/L (98-107); Creatinine, Serum 3.15 mg/dL (0.70-1.30); EST Glomerular Filtration Rate 20 mL/min (>60); Est Glom Filt Rate - Afr Amer 25 mL/min (>60); Estimated Creatinine Clearance 19.96 ml/min; Glucose 160 mg/dL (74-106); Magnesium 3.4 mg/dL (1.6-2.6); Phosphorus 4.1 mg/dL (2.5-4.9); Potassium 4.2 mmol/L (3.5-5.1); Sodium Level 140 mmol/L (136-145)
[2019-08-19 05:39] LABS: Differential Indicated SCAN CRITERIA MET
[2019-08-19 05:40] LABS: Platelet Count 827 K/mm3 (150-450)
[2019-08-19 06:35] LABS: Bedside Glucose 127 mg/dL (70-110)
[2019-08-19 06:35] LABS: Differential Comment SCANNED
--- NOTE | 2019-08-19 07:27 | PCM.PN.INT ---
Subjective: Patient did okay overnight. Renal function continues to be marginal, but fever curve is improving. Patient did have to go up slightly on FiO2 this morning and remains to have issues with synchrony with the ventilator. Urine output has remained marginal despite Lasix therapy yesterday. Patient continues to have spontaneous purposeful movements, but not following commands. General: - - Intubated and sedated. Fair vent synchrony. Air trapping noted on the vent. Increased flow with some improvement. Somewhat diaphoretic. HEENT: Atraumatic, PERRLA, EOMI, Normocephalic, - - No scleral icterus or injection noted Oral: Moist Mucosa, No Gingival or Mucosal Lesions/ Ulcerations Neck: Supple, No Nodes, Trachea Midline, JVD, Right Lungs: No wheeze, No rales, Diminished, - - Coarse breath sounds. Cardiovascular: Regular rate, Regular Rhythm, Normal S1, Normal S2, No murmurs, No rub noted, No Gallop Abdomen: Bowel Sounds Present, Soft, Non Tender, Distended - Slightly, Obese Extremities: No clubbing, No cyanosis, Edema - 2+ anasarca Skin: - - No significant change compared to previous Musculoskeletal: No Tenderness to Palpation of Joints or Extremities Lymphatic: No Cervical, Supraclavicular, or Inguinal Adenopathy Neurological: Cranial nerves II-XII grossly intact, Neuro grossly intact, - - Not following commands, but response to stimulus. Psych/Mental Status: Impulsive, Restless Vital Signs Temp Pulse Resp BP Pulse Ox 38.5 C H 77 33 H 132/63 H 95 08/19/19 06:00 08/19/19 06:49 08/19/19 06:49 08/19/19 06:00 08/19/19 06:49 Oxygen Flow Rate (L/min) 40 Oxygen Delivery Method Mechanical Ventilator Weight: 102.2 kg Body Mass Index (BMI) 31.1 Intake and Output for Last 24 Hours 08/17/19 08/18/19 08/19/19 23:59 23:59 23:59 Intake Total 3000.83 / 3018.83 2224.88 / 2362.31 1450.94 / 1450.94 Output Total 2260 / 2260 750 / 750 250 / 250 Balance 740.83 / 758.83 1474.88 / 1612.31 1200.94 / 1200.94 Labs (Last 48 Hours) 08/17/19 08/17/19 08/18/19 04:50 07:48 02:20 WBC RBC Hgb Hct MCV MCH MCHC RDW Std Deviation RDW Coeff of Nacho Plt Count MPV Immature Gran % (Auto) Neut % (Auto) Lymph % (Auto) [place] % (Auto) Eos % (Auto) Baso % (Auto) Absolute Neuts (auto) Absolute Lymphs (auto) Nucleated RBC % Differential Comment Diff Path Review Platelet Estimate Polychromasia Anisocytosis Macrocytosis Specimen Type ART Sample Site R RADIAL pH 7.32 L Bicarbonate Actual 22.2 POC Total CO2 23 Base Excess -4 L O2 Saturation 86 L O2 % 55 ABG pCO2 42.9 ABG pO2 55 L Oziel Test POS Respiration Rate 14 O2 Delivery Device Vent Vent Mode A-C Tidal Volume 450 POC PEEP 10 Blood Gas Notified Whom ICU MD Blood Gas Notified Time 748 Sodium Potassium Chloride Carbon Dioxide Anion Gap BUN Creatinine Estim Creat Clear Calc Est GFR (MDRD) Af Amer Est GFR (MDRD) Non-Af BUN/Creatinine Ratio Glucose Calcium Phosphorus 2.8 Magnesium 3.1 H Procalcitonin 2.28 H POC Glucose 08/18/19 08/18/19 08/18/19 02:20 02:20 12:05 WBC 8.5 RBC 3.40 L Hgb 11.7 L Hct 35.3 L MCV 103.8 H MCH 34.4 H MCHC 33.1 RDW Std Deviation 59.9 H RDW Coeff of Nacho 15.7 H Plt Count 780 H* MPV 9.4 Immature Gran % (Auto) 1.300 H Neut % (Auto) 91.1 H Lymph % (Auto) 4.5 L [place] % (Auto) 1.8 Eos % (Auto) 0.9 Baso % (Auto) 0.4 Absolute Neuts (auto) 7.8 H Absolute Lymphs (auto) 0.38 L Nucleated RBC % 0.4 Differential Comment Diff Path Review Reviewed Platelet Estimate MKD INC Polychromasia RARE Anisocytosis RARE Macrocytosis 1+ Specimen Type Sample Site pH Bicarbonate Actual POC Total CO2 Base Excess O2 Saturation O2 % ABG pCO2 ABG pO2 Oziel Test Respiration Rate O2 Delivery Device Vent Mode Tidal Volume POC PEEP Blood Gas Notified Whom Blood Gas Notified Time Sodium 140 Potassium 4.3 Chloride 108 H Carbon Dioxide 24.0 Anion Gap 8 BUN 76 H Creatinine 2.62 H Estim Creat Clear Calc 23.99 Est GFR (MDRD) Af Amer 31 L Est GFR (MDRD) Non-Af 25 L BUN/Creatinine Ratio 29.0 H Glucose 192 H Calcium 8.0 L Phosphorus Magnesium Procalcitonin POC Glucose 181 H 08/18/19 08/19/19 08/19/19 17:23 00:19 04:58 WBC RBC Hgb Hct MCV MCH MCHC RDW Std Deviation RDW Coeff of Nacho Plt Count MPV Immature Gran % (Auto) Neut % (Auto) Lymph % (Auto) [place] % (Auto) Eos % (Auto) Baso % (Auto) Absolute Neuts (auto) Absolute Lymphs (auto) Nucleated RBC % Differential Comment Diff Path Review Platelet Estimate Polychromasia Anisocytosis Macrocytosis Specimen Type Sample Site pH Bicarbonate Actual POC Total CO2 Base Excess O2 Saturation O2 % ABG pCO2 ABG pO2 Oziel Test Respiration Rate O2 Delivery Device Vent Mode Tidal Volume POC PEEP Blood Gas Notified Whom Blood Gas Notified Time Sodium Potassium Chloride Carbon Dioxide Anion Gap BUN Creatinine Estim Creat Clear Calc Est GFR (MDRD) Af Amer Est GFR (MDRD) Non-Af BUN/Creatinine Ratio Glucose Calcium Phosphorus Magnesium Procalcitonin POC Glucose 159 H 149 H 127 H 08/19/19 08/19/19 05:10 05:10 WBC 7.2 RBC 3.33 L Hgb 11.5 L Hct 34.5 L MCV 103.6 H MCH 34.5 H MCHC 33.3 RDW Std Deviation 62.1 H RDW Coeff of Nacho 16.0 H Plt Count 827 H* MPV 9.4 Immature Gran % (Auto) 4.700 H Neut % (Auto) 85.7 H Lymph % (Auto) 5.1 L [place] % (Auto) 1.9 Eos % (Auto) 2.2 Baso % (Auto) 0.4 Absolute Neuts (auto) 6.2 Absolute Lymphs (auto) 0.37 L Nucleated RBC % 0.3 Differential Comment SCANNED Diff Path Review May foll Platelet Estimate Polychromasia Anisocytosis Macrocytosis Specimen Type Sample Site pH Bicarbonate Actual POC Total CO2 Base Excess O2 Saturation O2 % ABG pCO2 ABG pO2 Oziel Test Respiration Rate O2 Delivery Device Vent Mode Tidal Volume POC PEEP Blood Gas Notified Whom Blood Gas Notified Time Sodium 140 Potassium 4.2 Chloride 108 H Carbon Dioxide 23.0 Anion Gap 9 BUN 98 H Creatinine 3.15 H Estim Creat Clear Calc 19.96 Est GFR (MDRD) Af Amer 25 L Est GFR (MDRD) Non-Af 20 L BUN/Creatinine Ratio 31.1 H Glucose 160 H Calcium 8.3 L Phosphorus 4.1 Magnesium 3.4 H Procalcitonin POC Glucose Microbiology 08/18/19 10:02 Sputum, Induced/Lukens Gram Stain - Final 08/12/19 21:37 Blood Culture (Wb) - Anticubital Right Blood Culture - Final No growth in 5 days. 08/12/19 21:34 Blood Culture (Wb) - Anticubital Left Blood Culture - Final No growth in 5 days. Medical Necessity - Tobacco Use Smoking Status: Never smoker Assessment/Plan All Active Problems (Last Reviewed 08/13/19 @ 01:[address] Matt Espinoza MD) Pneumonia (Acute) Hypoxia (Acute) COVID-19 (Acute) SARS-associated coronavirus infection (Acute) RECOMMENDATIONS: 1. Continue to wean FiO2 and PEEP to maintain oxygen saturations at or above 90%. 2. Continue empiric systemic anticoagulation 3. Consult nephrology. May need renal replacement therapy. 4. Continue tube feeds as tolerated. 5. Discussed with pharmacy about possible Risperdal. Continue Ativan as needed 6. Hold on Lasix therapy for now pending renal evaluation 7. Continue appropriate GI prophylaxis. IMPRESSIONS: 1. Acute hypoxemic respiratory failure secondary to COVID-19 infection The patient did okay over the last 24 hours. Patient has been able to come off of Levophed intermittently. Patient tolerating discontinuation of paralytic. Patient currently off of antibiotics. Oxygenation status appears to be stabilizing. Patient has been persistently febrile, but fever curve does appear to be improving. We will continue with propofol and fentanyl. Unfortunately, Seroquel had to be discontinued secondary to QT prolongation. Will discuss with pharmacy on possible Risperdal as adjunctive therapy. Will continue Ativan for breakthrough agitation. Patient did receive convalescent serum. 2. Acute kidney injury Continues to worsen. Likely related to ATN in the setting of #1, along with hemodynamic instability which was generated as a consequence of sedative utilization. Low-dose Levophed has been utilized to stabilize hemodynamics initially. Will consult renal for recommendations. Avoid nephrotoxic medications. May need dialysis line placement. 3. Troponin elevation Minimal troponin elevation. Echocardiogram shows preserved ejection fraction. We will hold off on cardiology evaluation at this time. Clinical suspicion for supply demand mismatch leading to elevated troponins. Patient could be evaluated for coronary artery disease as an outpatient. Continue telemetry. 4. Unspecified seizure disorder/hypothyroidism/hypertension/obesity Complicates care, management, recovery and prognosis. Continue home medications as indicated. TIME: 33 minutes of critical care time, independent of procedures, was spent addressing the patient's acute hypoxemic respiratory failure secondary to COVID-19 infection, acute kidney injury, troponin elevation, review of all data and collaboration with the care team. (5:30 AM to 6:40 AM) [id number] Critical care first hour
[2019-08-19] MEDS: LORazepam 2 MG/ML Syringe IV (08:13)
[2019-08-19] MEDS: Vital AF 1.2 Cal Liquid 1,000 ML 65 ML GT (08:15)
[2019-08-19 10:02] LABS: Pathologist Review Reviewed
--- NOTE | 2019-08-19 10:32 | PN.ID_ITS ---
Patient Problems: Active and Suspected Problems (Last Reviewed 08/13/19 @ 01:[address] Matt Espinoza MD) Pneumonia (Acute) Hypoxia (Acute) COVID-19 (Acute) SARS-associated coronavirus infection (Acute) Subjective: On vent, fever this AM - Physical Exam Vitals/I&O's: Vital Signs Temp Pulse Resp BP Pulse Ox 100.6 F H 69 28 H 125/59 H 95 08/19/19 10:00 08/19/19 10:00 08/19/19 10:00 08/19/19 10:00 08/19/19 10:00 Oxygen Flow Rate (L/min) 40 Oxygen Delivery Method Mechanical Ventilator Weight: 102.2 kg Body Mass Index (BMI) 31.1 Intake and Output for Last 24 Hours 08/17/19 08/18/19 08/19/19 23:59 23:59 23:59 Intake Total 3000.83 / 3018.83 2224.88 / 2362.31 1717.57 / 1717.57 Output Total 2260 / 2260 750 / 750 525 / 525 Balance 740.83 / 758.83 1474.88 / 1612.31 1192.57 / 1192.57 General: Non-Cooperative Lungs: Diminished Cardiovascular: Regular rate, Regular Rhythm Abdomen: Soft, Non Tender, Non-Distended Extremities: Edema Skin: No rashes Microbiology Past 72 Hours 08/18/19 10:02 Sputum, Induced/Lukens Gram Stain - Final 08/18/19 10:02 Sputum, Induced/Lukens Respiratory Culture - Preliminary Culture exhibits no growth. 08/12/19 21:37 Blood Culture (Wb) - Anticubital Right Blood Culture - Final No growth in 5 days. 08/12/19 21:34 Blood Culture (Wb) - Anticubital Left Blood Culture - Final No growth in 5 days. Laboratory Results 08/18/19 02:20: Diff Path Review Reviewed 08/18/19 12:05: POC Glucose 181 H 08/18/19 17:23: POC Glucose 159 H 08/19/19 00:19: POC Glucose 149 H 08/19/19 04:58: POC Glucose 127 H 08/19/19 05:10: WBC 7.2, RBC 3.33 L, Hgb 11.5 L, Hct 34.5 L, MCV 103.6 H, MCH 34.5 H, MCHC 33.3, RDW Std Deviation 62.1 H, RDW Coeff of Nacho 16.0 H, Plt Count 827 H*, MPV 9.4, Immature Gran % (Auto) 4.700 H, Neut % (Auto) 85.7 H, Lymph % (Auto) 5.1 L, [place] % (Auto) 1.9, Eos % (Auto) 2.2, Baso % (Auto) 0.4, Absolute Neuts (auto) 6.2, Absolute Lymphs (auto) 0.37 L, Nucleated RBC % 0.3, Differential Comment SCANNED, Diff Path Review Reviewed 08/19/19 05:10: Sodium 140, Potassium 4.2, Chloride 108 H, Carbon Dioxide 23.0, Anion Gap 9, BUN 98 H, Creatinine 3.15 H, Estim Creat Clear Calc 19.96, Est GFR (MDRD) Af Amer 25 L, Est GFR (MDRD) Non-Af 20 L, BUN/Creatinine Ratio 31.1 H, Glucose 160 H, Calcium 8.3 L, Phosphorus 4.1, Magnesium 3.4 H Current Medications Acetaminophen (Tylenol Liquid) 650 mg GT Q4H PRN PRN PRN Reason: Pain Score 1-10/Temp > 100.7 F Last Admin: 08/19/19 05:02 Dose: 650 mg Documented by: Aspirin (Aspirin, Baby) 81 mg GT DAILY@1000 [facility] Last Admin: 08/18/19 10:49 Dose: 81 mg Documented by: Chlorhexidine Gluconate () 15 ml PO BID [facility] Last Admin: 08/18/19 21:24 Dose: 15 ml Documented by: Dextrose (D50w Syringe) 0 gm IV X1 PRN; Protocol PRN Reason: Hypoglycemia Enoxaparin Sodium (Lovenox) 100 mg SC DAILY [facility] Last Admin: 08/19/19 09:09 Dose: Not Given Documented by: Glucagon () 1 mg IM .X1 PRN PRN Reason: Hypoglycemia Guaifenesin (Robitussin) 10 ml GT Q6 [facility] Last Admin: 08/19/19 05:00 Dose: 10 ml Documented by: Sodium Chloride () 250 mls @ 15 mls/hr IV .[id number] PRN PRN Reason: Saline Flush Sodium Chloride () 250 mls @ 15 mls/hr IV .[id number] PRN PRN Reason: Additional IVPB Infusion Fentanyl () 100 mls @ 5 mls/hr IV [facility]; Protocol Last Titration: 08/19/19 10:00 Dose: 175 mcg/hr, 17.5 mls/hr Documented by: Propofol (Diprivan) 1,000 mg in 100 mls @ 6.132 mls/hr CONT INF .Q12H [facility]; Protocol Last Titration: 08/19/19 10:12 Dose: 15 mcg/kg/min, 9.2 mls/hr Documented by: Enteral Nutritional Formula (Vital Af 1.2 Emanuel Liquid) 1,000 mls @ 65 mls/hr GT .[id number] [facility] Last Admin: 08/19/19 08:15 Dose: 65 mls/hr Documented by: Insulin Human Lispro (Humalog Kwikpen (Bkc)) 0 unit SC Q6 [facility]; Protocol Last Admin: 08/19/19 05:00 Dose: Not Given Documented by: Lansoprazole (Lansoprazole) 15 mg GT BID [facility] Last Admin: 08/18/19 21:24 Dose: 15 mg Documented by: Levothyroxine Sodium (Synthroid) 100 mcg GT DAILY [facility] Last Admin: 08/18/19 10:49 Dose: 100 mcg Documented by: Lorazepam (Ativan) 2 mg IV Q6H PRN PRN PRN Reason: AGITATION Last Admin: 08/19/19 08:13 Dose: 2 mg Documented by: Olanzapine (Zyprexa) 2.5 mg GT QHS [facility] Ondansetron HCl (Zofran) 4 mg IV Q8H PRN PRN PRN Reason: NAUSEA/VOMITING Phenytoin Sodium (Dilantin) 200 mg GT DAILY [facility] Last Admin: 08/18/19 10:49 Dose: 200 mg Documented by: Sodium Chloride () 10 - 40 ml IV UD PRN PRN Reason: SALINE FLUSH Last Admin: 08/18/19 14:41 Dose: 40 ml Documented by: Medical Necessity - Tobacco Use Smoking Status: Never smoker Route of nutrition/ use of supplements: [] Nutritional Intake: [] IV Site: [] Neil Catheter: [] - Assessment/Plan Antibiotics: [] Assessment/Plan: [] Active and Suspected Problems (Last Reviewed 08/13/19 @ 01:[address] Matt Espinoza MD) Pneumonia (Acute) Hypoxia (Acute) COVID-19 (Acute) SARS-associated coronavirus infection (Acute) COVID with hypoxic resp failure - s/p convalescent plasma 08/12. MRSA screen neg. Completed short course empiric zosyn. Cxs neg so far. O2 and inflammatory markers improved, but still febrile, still poorly responsive. Plan on fluid removal today. Worsening LI. Will follow, d/w Dr. Hook
[2019-08-19] MEDS: Chlorhexidine 15 ML PO ×2 (11:03→21:16)
[2019-08-19] MEDS: Phenytoin Na 100 MG/4 ML UDC 200 MG GT (11:03)
[2019-08-19] MEDS: OLANZapine 2.5 MG Tablet GT (11:03)
[2019-08-19] MEDS: Levothyroxine 100 MCG Tablet GT (11:04)
[2019-08-19] MEDS: Lansoprazole 15 MG Capsule.DR GT ×2 (11:04→21:16)
[2019-08-19] MEDS: Aspirin 81 MG TAB.CHEW GT (11:04)
[2019-08-19] MEDS: Insulin Lispro 100 UNIT/ML INSULN.PEN SC (11:06)
[2019-08-19] MEDS: Propofol 10MG/Ml 1,000 MG/100 ML Bottle 12.3 MG CONT INF ×2 (11:30→14:00)
[2019-08-19 11:36] LABS: Bedside Glucose 176 mg/dL (70-110)
--- NOTE | 2019-08-19 12:09 | PN_ITS ---
Patient Problems: Active and Suspected Problems (Last Reviewed 08/13/19 @ 01:[address] Matt Espinoza MD) Pneumonia (Acute) Hypoxia (Acute) COVID-19 (Acute) SARS-associated coronavirus infection (Acute) Reason for Visit: COVID Subjective: Still agitated. Still febrile. Vitals/I&O's: Vital Signs Temp Pulse Resp BP Pulse Ox 38.1 C H 82 28 H 125/59 H 95 08/19/19 10:00 08/19/19 12:00 08/19/19 10:00 08/19/19 10:00 08/19/19 10:00 Oxygen Flow Rate (L/min) 40 Oxygen Delivery Method Mechanical Ventilator Weight: 102.2 kg Body Mass Index (BMI) 31.1 Intake and Output for Last 24 Hours 08/17/19 08/18/19 08/19/19 23:59 23:59 23:59 Intake Total 3000.83 / 3018.83 2224.88 / 2362.31 1955.98 / 1955.98 Output Total 2260 / 2260 750 / 750 700 / 700 Balance 740.83 / 758.83 1474.88 / 1612.31 1255.98 / 1255.98 HEENT: Atraumatic, Normocephalic Oral: - - ETT OG in place. Neck: No Nodes, Thyroid Normal Size and Texture Lungs: Normal air movement, - - coarse breath sounds Cardiovascular: Regular rate, Regular Rhythm, Normal S1, Normal S2 Abdomen: Bowel Sounds Present, Soft, Non Tender, Non-Distended Extremities: No Calf Tenderness, Edema Microbiology Past 72 Hours 08/17/19 11:50 Blood Culture (Wb) - Right Hand Blood Culture - Preliminary No growth in 48 hours. 08/18/19 10:02 Sputum, Induced/Lukens Gram Stain - Final 08/18/19 10:02 Sputum, Induced/Lukens Respiratory Culture - Preliminary Culture exhibits no growth. 08/12/19 21:37 Blood Culture (Wb) - Anticubital Right Blood Culture - Final No growth in 5 days. 08/12/19 21:34 Blood Culture (Wb) - Anticubital Left Blood Culture - Final No growth in 5 days. Laboratory Results 08/18/19 12:05: POC Glucose 181 H 08/18/19 17:23: POC Glucose 159 H 08/19/19 00:19: POC Glucose 149 H 08/19/19 04:58: POC Glucose 127 H 08/19/19 05:10: WBC 7.2, RBC 3.33 L, Hgb 11.5 L, Hct 34.5 L, MCV 103.6 H, MCH 34.5 H, MCHC 33.3, RDW Std Deviation 62.1 H, RDW Coeff of Nacho 16.0 H, Plt Count 827 H*, MPV 9.4, Immature Gran % (Auto) 4.700 H, Neut % (Auto) 85.7 H, Lymph % (Auto) 5.1 L, [place] % (Auto) 1.9, Eos % (Auto) 2.2, Baso % (Auto) 0.4, Absolute Neuts (auto) 6.2, Absolute Lymphs (auto) 0.37 L, Nucleated RBC % 0.3, Differential Comment SCANNED, Diff Path Review Reviewed 08/19/19 05:10: Sodium 140, Potassium 4.2, Chloride 108 H, Carbon Dioxide 23.0, Anion Gap 9, BUN 98 H, Creatinine 3.15 H, Estim Creat Clear Calc 19.96, Est GFR (MDRD) Af Amer 25 L, Est GFR (MDRD) Non-Af 20 L, BUN/Creatinine Ratio 31.1 H, Glucose 160 H, Calcium 8.3 L, Phosphorus 4.1, Magnesium 3.4 H 08/19/19 11:05: POC Glucose 176 H Current Medications Acetaminophen (Tylenol Liquid) 650 mg GT Q4H PRN PRN PRN Reason: Pain Score 1-10/Temp > 100.7 F Last Admin: 08/19/19 05:02 Dose: 650 mg Documented by: Aspirin (Aspirin, Baby) 81 mg GT DAILY@1000 [facility] Last Admin: 08/19/19 11:04 Dose: 81 mg Documented by: Chlorhexidine Gluconate () 15 ml PO BID [facility] Last Admin: 08/19/19 11:03 Dose: 15 ml Documented by: Dextrose (D50w Syringe) 0 gm IV X1 PRN; Protocol PRN Reason: Hypoglycemia Enoxaparin Sodium (Lovenox) 100 mg SC DAILY [facility] Last Admin: 08/19/19 09:09 Dose: Not Given Documented by: Glucagon () 1 mg IM .X1 PRN PRN Reason: Hypoglycemia Guaifenesin (Robitussin) 10 ml GT Q6 [facility] Last Admin: 08/19/19 11:04 Dose: 10 ml Documented by: Sodium Chloride () 250 mls @ 15 mls/hr IV .[id number] PRN PRN Reason: Saline Flush Sodium Chloride () 250 mls @ 15 mls/hr IV .[id number] PRN PRN Reason: Additional IVPB Infusion Fentanyl () 100 mls @ 5 mls/hr IV UD [facility]; Protocol Last Admin: 08/19/19 11:05 Dose: 175 mcg/hr, 17.5 mls/hr Documented by: Propofol (Diprivan) 1,000 mg in 100 mls @ 6.132 mls/hr CONT INF .Q12H [facility]; Protocol Last Admin: 08/19/19 11:30 Dose: 20 mcg/kg/min, 12.3 mls/hr Documented by: Enteral Nutritional Formula (Vital Af 1.2 Emanuel Liquid) 1,000 mls @ 65 mls/hr GT .[id number] [facility] Last Admin: 08/19/19 08:15 Dose: 65 mls/hr Documented by: Insulin Human Lispro (Humalog Kwikpen (Bkc)) 0 unit SC Q6 [facility]; Protocol Last Admin: 08/19/19 11:06 Dose: 1 unit Documented by: Lansoprazole (Lansoprazole) 15 mg GT BID [facility] Last Admin: 08/19/19 11:04 Dose: 15 mg Documented by: Levothyroxine Sodium (Synthroid) 100 mcg GT DAILY [facility] Last Admin: 08/19/19 11:04 Dose: 100 mcg Documented by: Lorazepam (Ativan) 2 mg IV Q6H PRN PRN PRN Reason: AGITATION Last Admin: 08/19/19 08:13 Dose: 2 mg Documented by: Olanzapine (Zyprexa) 2.5 mg GT QHS [facility] Ondansetron HCl (Zofran) 4 mg IV Q8H PRN PRN PRN Reason: NAUSEA/VOMITING Phenytoin Sodium (Dilantin) 200 mg GT DAILY [facility] Last Admin: 08/19/19 11:03 Dose: 200 mg Documented by: Sodium Chloride () 10 - 40 ml IV UD PRN PRN Reason: SALINE FLUSH Last Admin: 08/18/19 14:41 Dose: 40 ml Documented by: STROKE Vital Signs/Narrative: Vital Signs Temp Pulse Resp BP BP Pulse Ox 08/19/19 12:00 82 08/19/19 10:00 38.1 C H 69 28 H 125/59 H 95 08/19/19 09:30 93/46 L 08/19/19 09:20 85/42 L 08/19/19 09:06 62 28 H 92 08/19/19 09:00 38.3 C H 62 29 H 85/42 L 92 Medical Necessity - Tobacco Use Smoking Status: Never smoker Assessment/Plan All Active Problems (Last Reviewed 08/13/19 @ 01:[address] Matt Espinoza MD) Pneumonia (Acute) Hypoxia (Acute) COVID-19 (Acute) SARS-associated coronavirus infection (Acute) 1. acute hypoxic respiratory failure * still on vent, FiO2 40% * / COVID +/- PNA +/- ALI * had been on pip/tazo, but discontinued 08/16. * received furosemide 40 08/17 2. COVID-19 * received convalescent plasma on 08/12 3. NSTEMI: * troponins peaked at 1.89 * suspect demand ischemia * echo shows EF 65%. * on LMWH and ASA * consider cardiology consultation depending on clinical course 4. LI * non-oliguric * nephrology consult 5. VTE proph: anticoagulated. Inpatient E&M: 40202 Subs Hosp L2
--- NOTE | 2019-08-19 12:33 | PCM.CONS.R ---
Problem List (1) LI (acute kidney injury) Status: Acute Consultation - Renal 08/19/19 PCP/ Referring MD: Requesting physician: [] Primary care physician: Dr. Sagar Kent III, MD Reason for Consultation:: li - History of Present Illness History of Present Illness: The patient is a 79 year old M who is admitted to the hospital with COVID pneumonia. renal consulted for LI. baseline creatinine is close to normal. urine output was ok until yesterday, dropped off significantly. overall volume overloaded. intubated - Allergies Allergies: Allergies No Known Allergies Allergy (Verified 08/12/19 21:15) - Current Medications Current Medications: Current Medications Acetaminophen (Tylenol Liquid) 650 mg GT Q4H PRN PRN PRN Reason: Pain Score 1-10/Temp > 100.7 F Last Admin: 08/19/19 05:02 Dose: 650 mg Documented by: Aspirin (Aspirin, Baby) 81 mg GT DAILY@1000 [facility] Last Admin: 08/19/19 11:04 Dose: 81 mg Documented by: Chlorhexidine Gluconate () 15 ml PO BID [facility] Last Admin: 08/19/19 11:03 Dose: 15 ml Documented by: Dextrose (D50w Syringe) 0 gm IV X1 PRN; Protocol PRN Reason: Hypoglycemia Enoxaparin Sodium (Lovenox) 100 mg SC DAILY [facility] Last Admin: 08/19/19 09:09 Dose: Not Given Documented by: Glucagon () 1 mg IM .X1 PRN PRN Reason: Hypoglycemia Guaifenesin (Robitussin) 10 ml GT Q6 [facility] Last Admin: 08/19/19 11:04 Dose: 10 ml Documented by: Sodium Chloride () 250 mls @ 15 mls/hr IV .[id number] PRN PRN Reason: Saline Flush Sodium Chloride () 250 mls @ 15 mls/hr IV .[id number] PRN PRN Reason: Additional IVPB Infusion Fentanyl () 100 mls @ 5 mls/hr IV UD [facility]; Protocol Last Titration: 08/19/19 12:00 Dose: 175 mcg/hr, 17.5 mls/hr Documented by: Propofol (Diprivan) 1,000 mg in 100 mls @ 6.132 mls/hr CONT INF .Q12H [facility]; Protocol Last Titration: 08/19/19 12:00 Dose: 25 mcg/kg/min, 15.3 mls/hr Documented by: Enteral Nutritional Formula (Vital Af 1.2 Emanuel Liquid) 1,000 mls @ 65 mls/hr GT .[id number] [facility] Last Admin: 08/19/19 08:15 Dose: 65 mls/hr Documented by: Insulin Human Lispro (Humalog Kwikpen (Bkc)) 0 unit SC Q6 [facility]; Protocol Last Admin: 08/19/19 11:06 Dose: 1 unit Documented by: Lansoprazole (Lansoprazole) 15 mg GT BID [facility] Last Admin: 08/19/19 11:04 Dose: 15 mg Documented by: Levothyroxine Sodium (Synthroid) 100 mcg GT DAILY [facility] Last Admin: 08/19/19 11:04 Dose: 100 mcg Documented by: Lorazepam (Ativan) 2 mg IV Q6H PRN PRN PRN Reason: AGITATION Last Admin: 08/19/19 08:13 Dose: 2 mg Documented by: Olanzapine (Zyprexa) 2.5 mg GT QHS [facility] Ondansetron HCl (Zofran) 4 mg IV Q8H PRN PRN PRN Reason: NAUSEA/VOMITING Phenytoin Sodium (Dilantin) 200 mg GT DAILY [facility] Last Admin: 08/19/19 11:03 Dose: 200 mg Documented by: Sodium Chloride () 10 - 40 ml IV UD PRN PRN Reason: SALINE FLUSH Last Admin: 08/18/19 14:41 Dose: 40 ml Documented by: - Past Surgical History Surgical History: - - Kidney stone retrieval - Social History Smoking Status: Never smoker - Family History Maternal History Items: - - Mother had migraine headache; and multiple removal of abdominal tumors. Paternal History Items: Dementia Review of Systems Unable to obtain accurate/complete ROS d/t: due to intubated status Patient Problems: Active and Suspected Problems (Last Reviewed 08/13/19 @ 01:[address] Matt Espinoza MD) Pneumonia (Acute) Hypoxia (Acute) COVID-19 (Acute) SARS-associated coronavirus infection (Acute) LI (acute kidney injury) (Acute) - Physical Exam Vitals/I&O's: Vital Signs Temp Pulse Resp BP Pulse Ox 100.8 F H 74 35 H 114/53 L 93 08/19/19 12:00 08/19/19 12:00 08/19/19 12:00 08/19/19 12:00 08/19/19 12:00 Oxygen Flow Rate (L/min) 40 Oxygen Delivery Method Mechanical Ventilator Weight: 102.2 kg Body Mass Index (BMI) 31.1 Intake and Output for Last 24 Hours 08/17/19 08/18/19 08/19/19 23:59 23:59 23:59 Intake Total 3000.83 / 3018.83 2224.88 / 2362.31 / Output Total 2260 / 2260 750 / 750 700 / 700 Balance 740.83 / 758.83 1474.88 / 1612.31 1278.17 / 1278.17 Neck: Supple Abdomen: Non-Distended Extremities: Edema Skin: No rashes Comment: intubated, exam minimized to conserve PPE, no pressors. FiO2 and PEEP noted Microbiology Past 72 Hours 08/17/19 11:50 Blood Culture (Wb) - Right Hand Blood Culture - Preliminary No growth in 48 hours. 08/18/19 10:02 Sputum, Induced/Lukens Gram Stain - Final 08/18/19 10:02 Sputum, Induced/Lukens Respiratory Culture - Preliminary Culture exhibits no growth. 08/12/19 21:37 Blood Culture (Wb) - Anticubital Right Blood Culture - Final No growth in 5 days. 08/12/19 21:34 Blood Culture (Wb) - Anticubital Left Blood Culture - Final No growth in 5 days. Laboratory Results 08/18/19 17:23: POC Glucose 159 H 08/19/19 00:19: POC Glucose 149 H 08/19/19 04:58: POC Glucose 127 H 08/19/19 05:10: WBC 7.2, RBC 3.33 L, Hgb 11.5 L, Hct 34.5 L, MCV 103.6 H, MCH 34.5 H, MCHC 33.3, RDW Std Deviation 62.1 H, RDW Coeff of Nacho 16.0 H, Plt Count 827 H*, MPV 9.4, Immature Gran % (Auto) 4.700 H, Neut % (Auto) 85.7 H, Lymph % (Auto) 5.1 L, [place] % (Auto) 1.9, Eos % (Auto) 2.2, Baso % (Auto) 0.4, Absolute Neuts (auto) 6.2, Absolute Lymphs (auto) 0.37 L, Nucleated RBC % 0.3, Differential Comment SCANNED, Diff Path Review Reviewed 08/19/19 05:10: Sodium 140, Potassium 4.2, Chloride 108 H, Carbon Dioxide 23.0, Anion Gap 9, BUN 98 H, Creatinine 3.15 H, Estim Creat Clear Calc 19.96, Est GFR (MDRD) Af Amer 25 L, Est GFR (MDRD) Non-Af 20 L, BUN/Creatinine Ratio 31.1 H, Glucose 160 H, Calcium 8.3 L, Phosphorus 4.1, Magnesium 3.4 H 08/19/19 11:05: POC Glucose 176 H Current Medications Acetaminophen (Tylenol Liquid) 650 mg GT Q4H PRN PRN PRN Reason: Pain Score 1-10/Temp > 100.7 F Last Admin: 08/19/19 05:02 Dose: 650 mg Documented by: Aspirin (Aspirin, Baby) 81 mg GT DAILY@1000 [facility] Last Admin: 08/19/19 11:04 Dose: 81 mg Documented by: Chlorhexidine Gluconate () 15 ml PO BID [facility] Last Admin: 08/19/19 11:03 Dose: 15 ml Documented by: Dextrose (D50w Syringe) 0 gm IV X1 PRN; Protocol PRN Reason: Hypoglycemia Enoxaparin Sodium (Lovenox) 100 mg SC DAILY [facility] Last Admin: 08/19/19 09:09 Dose: Not Given Documented by: Glucagon () 1 mg IM .X1 PRN PRN Reason: Hypoglycemia Guaifenesin (Robitussin) 10 ml GT Q6 [facility] Last Admin: 08/19/19 11:04 Dose: 10 ml Documented by: Sodium Chloride () 250 mls @ 15 mls/hr IV .[id number] PRN PRN Reason: Saline Flush Sodium Chloride () 250 mls @ 15 mls/hr IV .[id number] PRN PRN Reason: Additional IVPB Infusion Fentanyl () 100 mls @ 5 mls/hr IV UD [facility]; Protocol Last Titration: 08/19/19 12:00 Dose: 175 mcg/hr, 17.5 mls/hr Documented by: Propofol (Diprivan) 1,000 mg in 100 mls @ 6.132 mls/hr CONT INF .Q12H [facility]; Protocol Last Titration: 08/19/19 12:00 Dose: 25 mcg/kg/min, 15.3 mls/hr Documented by: Enteral Nutritional Formula (Vital Af 1.2 Emanuel Liquid) 1,000 mls @ 65 mls/hr GT .[id number] [facility] Last Admin: 08/19/19 08:15 Dose: 65 mls/hr Documented by: Insulin Human Lispro (Humalog Kwikpen (Bkc)) 0 unit SC Q6 [facility]; Protocol Last Admin: 08/19/19 11:06 Dose: 1 unit Documented by: Lansoprazole (Lansoprazole) 15 mg GT BID [facility] Last Admin: 08/19/19 11:04 Dose: 15 mg Documented by: Levothyroxine Sodium (Synthroid) 100 mcg GT DAILY [facility] Last Admin: 08/19/19 11:04 Dose: 100 mcg Documented by: Lorazepam (Ativan) 2 mg IV Q6H PRN PRN PRN Reason: AGITATION Last Admin: 08/19/19 08:13 Dose: 2 mg Documented by: Olanzapine (Zyprexa) 2.5 mg GT QHS [facility] Ondansetron HCl (Zofran) 4 mg IV Q8H PRN PRN PRN Reason: NAUSEA/VOMITING Phenytoin Sodium (Dilantin) 200 mg GT DAILY [facility] Last Admin: 08/19/19 11:03 Dose: 200 mg Documented by: Sodium Chloride () 10 - 40 ml IV UD PRN PRN Reason: SALINE FLUSH Last Admin: 08/18/19 14:41 Dose: 40 ml Documented by: Assessment/Plan All Active Problems (Last Reviewed 08/13/19 @ 01:[address] Matt Espinoza MD) Pneumonia (Acute) Hypoxia (Acute) COVID-19 (Acute) SARS-associated coronavirus infection (Acute) LI (acute kidney injury) (Acute) LI. normal baseline. zarco in place, hence obstructive unlikely. LI is likely related to COVID. oliguria with volume overload. will plan for dialysis today. alex Hook. will plan for fluid removal as tolerated. no pressors on board right now. cool dialysate pressors if needed for hypotension plan for HD tomorrow and friday as well
--- NOTE | 2019-08-19 12:44 | CASEMGMT ---
CONCHA HACKETT NOTE: Participated in ICU interdisciplinary rounds. Pt remains intubated w/50% O2. Pt w/worsening LI: plan is for pt to have Dialysis catheter placed today and receive 1st dialysis treatment. CM/MAGUI following. John BSN CONCHA HACKETT
--- NOTE | 2019-08-19 13:25 | RAD_ITS ---
STUDY: X-RAY CHEST REASON FOR EXAM: Male, 79 years old. DIALYSIS CATH PLACEMENT TECHNIQUE: Single AP portable view of the chest. COMPARISON: Comparison is made with prior examination dated August 17, 2019. FINDINGS: An endotracheal tube is in situ. The tip is at 6.1 cm proximal to the syd. A right-sided dialysis catheter has been placed with the tip at the junction of the superior vena cava and right atrium. Stable appearance of the left central venous catheter with the tip in the proximal superior vena cava. Since prior study, there has been progressive infiltrates in both lungs. There is no demonstrated pleural abnormality. Normal size heart. Normal mediastinum and dane. Normal visualized pulmonary arteries. There is atherosclerotic tortuosity of the aortic arch and descending thoracic aorta. There are diffuse degenerative changes of the visualized thoracic spine. There is degenerative osteoarthritis of the bilateral shoulders. There is no demonstrated abnormality of the visualized soft tissue structures of the upper abdomen. RAD/CXR for Line Placement IMPRESSION: Progressive bilateral infiltrates. The tip of the right dialysis catheter is at the junction of superior vena cava and right atrium. Electronically Signed: Abdulaziz Romero, at 13:53 EDT , Service support ,
[2019-08-19] MEDS: Heparin 10,000 UNITS/10 ML Vial 2600 UNITS IV (13:32)
--- NOTE | 2019-08-19 14:04 | OP.PCM_ITS ---
Report of Operation Date of Procedure: 08/19/19 Surgery/Procedure Performed:: Dialysis catheter insertion Description of Surgical Findings:: Temporary hemo-dialysis catheter line placement procedure note Indication: Hemodialysis Procedure: A time-out was completed to verify correct patient, indication, medication allergies, procedure, coagulation studies, informed consent signed, and equipment needed. The patient was placed in the supine position for a central line placement to the rt IJ vein. The patients rt neck was prepped using chlorhexidine and a full body sterile drape was applied. 1% lidocaine was used to anesthetize the surrounding skin. A 12fr 16 cm Temporary hemodialysis ca theter introduced into the internal jugular vein using the modified Seldinger technique with the assistance of ultrasound. The catheter was threaded smoothly over the guidewire, The site was dilated twice up in a stepwise fashion, the guidewire was removed easily, nonpulsatile blood returned. All ports were aspirated of air and flushed with sterile saline And locked with you 1000 heparin. The catheter was sutured in place and covered with an occlusive dressing impregnated with chlorhexidine. Post-procedure: The patient tolerated the procedure well. Vital signs remained stable. EBL 5 cc. No complications. Chest X Ray ordered to confirm tip placement and the absence of pneumothorax. Procedures: [id number] Insert Non-tunnel CV Cath
[2019-08-19 14:10] LABS: Partial Thromboplast Time 33.3 Seconds (24.1-36.2)
[2019-08-19] MEDS: HEPARIN/D5w 25,000 UNITS 25,000 UNITS/250 ML IV.SOLN. 14 UNITS IV (16:16)
[2019-08-19] MEDS: fentaNYL drip 100 ML 20 MCG IV (17:00)
[2019-08-19 18:46] LABS: Bedside Glucose 146 mg/dL (70-110)
[2019-08-19] MEDS: Heparin 10,000 UNITS/10 ML Vial IV (19:28)
--- NOTE | 2019-08-19 20:22 | DIALYSIS ---
1st Hemodialysis tx x 2 hours completed. -1800ml off. stable t/o tx. CVC closed with heparin to each lumen fill volume. See HD flowsheet for details. Report to Isadora LUX RN
[2019-08-19 20:25] LABS: Hepatitis B Surface Antibody Non-Reactive; Hepatitis B Surface Antigen Non-Reactive (Nonreactive)
[2019-08-19 22:57] LABS: Partial Thromboplast Time 38.1 Seconds (24.1-36.2)
[2019-08-19] MEDS: Heparin Injection (Vial) 5,000 UNIT/ML VIAL IV (23:20)
[2019-08-20] VITALS (46 sets, daily range): BP systolic 86–158; BP diastolic 48–103; PULSE 51–93; RESP 14–33; TEMP 36.6–37.7; O2SAT 90–97
[2019-08-20 00:25] LABS: Bedside Glucose 137 mg/dL (70-110)
[2019-08-20] MEDS: Propofol 10MG/Ml 1,000 MG/100 ML Bottle 9.2 MG CONT INF (02:30)
[2019-08-20] MEDS: Vital AF 1.2 Cal Liquid 1,000 ML 65 ML GT ×2 (02:35→18:50)
[2019-08-20] MEDS: fentaNYL drip 100 ML 17.5 MCG IV ×2 (04:40→16:30)
[2019-08-20] MEDS: guaiFENesin 10 ML UDC (200MG/10ML) GT ×4 (05:26→21:14)
[2019-08-20] MEDS: Insulin Lispro 100 UNIT/ML INSULN.PEN SC (05:26)
[2019-08-20] MEDS: HEPARIN/D5w 25,000 UNITS 25,000 UNITS/250 ML IV.SOLN. 16 UNITS IV (05:33)
[2019-08-20] MEDS: TITRATION PARAMETER CHANGE 1 EACH IV (05:43)
[2019-08-20 06:02] LABS: Partial Thromboplast Time 39.5 Seconds (24.1-36.2); Procalcitonin 2.41 ng/mL (0.00-0.09)
[2019-08-20 06:08] LABS: Anion Gap 9 (5-15); BUN 87 mg/dL (7-18); BUN/Creat Ratio 36.6 RATIO (10-20); Calcium,Total 8.3 mg/dL (8.5-10.1); Chloride 106 mmol/L (98-107); Creatinine, Serum 2.38 mg/dL (0.70-1.30); EST Glomerular Filtration Rate 28 mL/min (>60); Est Glom Filt Rate - Afr Amer 34 mL/min (>60); Estimated Creatinine Clearance 26.41 ml/min; Ferritin 1183 ng/mL (26-388); Glucose 153 mg/dL (74-106); Sodium Level 142 mmol/L (136-145)
[2019-08-20] MEDS: Heparin Injection (Vial) 5,000 UNIT/ML VIAL IV ×3 (06:08→21:45)
--- NOTE | 2019-08-20 06:35 | CPS ---
Attempted a weaning trial this AM got agitated RR increased SPO2 decreased.
[2019-08-20 06:45] LABS: Bedside Glucose 155 mg/dL (70-110)
--- NOTE | 2019-08-20 07:00 | PCM.PN.INT ---
Subjective: Patient did well overnight. Patient had a profound response to Zyprexa yesterday with a significant decrease in propofol. Patient also had a hemodialysis catheter placed yesterday and received hemodialysis with volume removal. No fevers were noted overnight for the first time since admitted. PEEP was able to be weaned to 8. Patient failed spontaneous awakening trial this morning, so no spontaneous breathing trial was completed. Patient was following brief commands. General: - - Intubated and sedated. Briefly follows commands. Diaphoretic. HEENT: Atraumatic, PERRLA, EOMI, Normocephalic, - - Scleral injection without icterus Oral: Moist Mucosa, No Gingival or Mucosal Lesions/ Ulcerations Neck: Supple, No Nodes, Trachea Midline, - - IJ lines are clean, dry and intact Lungs: No wheeze, No rales, Diminished, Rhonchi, - - Symmetric expansion. Cardiovascular: Regular rate, Regular Rhythm, Normal S1, Normal S2, No murmurs, No rub noted, No Gallop Abdomen: Bowel Sounds Present, Soft, Non Tender, Distended - Slightly, Obese Extremities: No clubbing, No cyanosis, Edema - 1-2+ anasarca Skin: - - No change compared to previous Musculoskeletal: No Tenderness to Palpation of Joints or Extremities Lymphatic: No Cervical, Supraclavicular, or Inguinal Adenopathy Neurological: - - Spontaneous movement of all extremities. Sensation is intact. Positive gag and cough reflex. Psych/Mental Status: Impulsive, Restless Vital Signs Temp Pulse Resp BP Pulse Ox 37.3 C H 712 H 28 H 158/77 H 91 08/20/19 06:00 08/20/19 06:31 08/20/19 06:31 08/20/19 06:00 08/20/19 06:31 Oxygen Flow Rate (L/min) 40 Oxygen Delivery Method Mechanical Ventilator Weight: 99.3 kg Body Mass Index (BMI) 31.1 Intake and Output for Last 24 Hours 08/18/19 08/19/19 08/20/19 23:59 23:59 23:59 Intake Total 2224.88 / 2362.31 3843.12 / 3940.22 971.38 / 971.38 Output Total 750 / 750 3150 / 3150 350 / 350 Balance 1474.88 / 1612.31 693.12 / 790.22 621.38 / 621.38 Labs (Last 48 Hours) 08/18/19 08/18/19 08/18/19 02:20 12:05 17:23 WBC RBC Hgb Hct MCV MCH MCHC RDW Std Deviation RDW Coeff of Nacho Plt Count MPV Immature Gran % (Auto) Neut % (Auto) Lymph % (Auto) [place] % (Auto) Eos % (Auto) Baso % (Auto) Absolute Neuts (auto) Absolute Lymphs (auto) Nucleated RBC % Differential Comment Diff Path Review Reviewed APTT Sodium Potassium Chloride Carbon Dioxide Anion Gap BUN Creatinine Estim Creat Clear Calc Est GFR (MDRD) Af Amer Est GFR (MDRD) Non-Af BUN/Creatinine Ratio Glucose Calcium Phosphorus Magnesium Ferritin C-React Prot Ext Range B-Natriuretic Peptide Procalcitonin Hep Bs Antigen Hep Bs Antibody POC Glucose 181 H 159 H 08/19/19 08/19/19 08/19/19 00:19 04:58 05:10 WBC 7.2 RBC 3.33 L Hgb 11.5 L Hct 34.5 L MCV 103.6 H MCH 34.5 H MCHC 33.3 RDW Std Deviation 62.1 H RDW Coeff of Nacho 16.0 H Plt Count 827 H* MPV 9.4 Immature Gran % (Auto) 4.700 H Neut % (Auto) 85.7 H Lymph % (Auto) 5.1 L [place] % (Auto) 1.9 Eos % (Auto) 2.2 Baso % (Auto) 0.4 Absolute Neuts (auto) 6.2 Absolute Lymphs (auto) 0.37 L Nucleated RBC % 0.3 Differential Comment SCANNED Diff Path Review Reviewed APTT Sodium Potassium Chloride Carbon Dioxide Anion Gap BUN Creatinine Estim Creat Clear Calc Est GFR (MDRD) Af Amer Est GFR (MDRD) Non-Af BUN/Creatinine Ratio Glucose Calcium Phosphorus Magnesium Ferritin C-React Prot Ext Range B-Natriuretic Peptide Procalcitonin Hep Bs Antigen Hep Bs Antibody POC Glucose 149 H 127 H 08/19/19 08/19/19 08/19/19 05:10 11:05 13:25 WBC RBC Hgb Hct MCV MCH MCHC RDW Std Deviation RDW Coeff of Nacho Plt Count MPV Immature Gran % (Auto) Neut % (Auto) Lymph % (Auto) [place] % (Auto) Eos % (Auto) Baso % (Auto) Absolute Neuts (auto) Absolute Lymphs (auto) Nucleated RBC % Differential Comment Diff Path Review APTT 33.3 Sodium 140 Potassium 4.2 Chloride 108 H Carbon Dioxide 23.0 Anion Gap 9 BUN 98 H Creatinine 3.15 H Estim Creat Clear Calc 19.96 Est GFR (MDRD) Af Amer 25 L Est GFR (MDRD) Non-Af 20 L BUN/Creatinine Ratio 31.1 H Glucose 160 H Calcium 8.3 L Phosphorus 4.1 Magnesium 3.4 H Ferritin C-React Prot Ext Range B-Natriuretic Peptide Procalcitonin Hep Bs Antigen Hep Bs Antibody POC Glucose 176 H 08/19/19 08/19/19 08/19/19 16:30 18:16 22:30 WBC RBC Hgb Hct MCV MCH MCHC RDW Std Deviation RDW Coeff of Nacho Plt Count MPV Immature Gran % (Auto) Neut % (Auto) Lymph % (Auto) [place] % (Auto) Eos % (Auto) Baso % (Auto) Absolute Neuts (auto) Absolute Lymphs (auto) Nucleated RBC % Differential Comment Diff Path Review APTT 38.1 H Sodium Potassium Chloride Carbon Dioxide Anion Gap BUN Creatinine Estim Creat Clear Calc Est GFR (MDRD) Af Amer Est GFR (MDRD) Non-Af BUN/Creatinine Ratio Glucose Calcium Phosphorus Magnesium Ferritin C-React Prot Ext Range B-Natriuretic Peptide Procalcitonin Hep Bs Antigen Non-Reactive Hep Bs Antibody Non-Reactive POC Glucose 146 H 08/19/19 08/20/19 08/20/19 23:20 05:15 05:20 WBC RBC Hgb Hct MCV MCH MCHC RDW Std Deviation RDW Coeff of Nacho Plt Count MPV Immature Gran % (Auto) Neut % (Auto) Lymph % (Auto) [place] % (Auto) Eos % (Auto) Baso % (Auto) Absolute Neuts (auto) Absolute Lymphs (auto) Nucleated RBC % Differential Comment Diff Path Review APTT Sodium 142 Potassium 4.0 Chloride 106 Carbon Dioxide 27.0 Anion Gap 9 BUN 87 H Creatinine 2.38 H Estim Creat Clear Calc 26.41 Est GFR (MDRD) Af Amer 34 L Est GFR (MDRD) Non-Af 28 L BUN/Creatinine Ratio 36.6 H Glucose 153 H Calcium 8.3 L Phosphorus Magnesium Ferritin 1183 H C-React Prot Ext Range 252.00 H B-Natriuretic Peptide Procalcitonin Hep Bs Antigen Hep Bs Antibody POC Glucose 137 H 155 H 08/20/19 08/20/19 08/20/19 05:20 05:20 05:20 WBC RBC Hgb Hct MCV MCH MCHC RDW Std Deviation RDW Coeff of Nacho Plt Count MPV Immature Gran % (Auto) Neut % (Auto) Lymph % (Auto) [place] % (Auto) Eos % (Auto) Baso % (Auto) Absolute Neuts (auto) Absolute Lymphs (auto) Nucleated RBC % Differential Comment Diff Path Review APTT 39.5 H Sodium Potassium Chloride Carbon Dioxide Anion Gap BUN Creatinine Estim Creat Clear Calc Est GFR (MDRD) Af Amer Est GFR (MDRD) Non-Af BUN/Creatinine Ratio Glucose Calcium Phosphorus Magnesium Ferritin C-React Prot Ext Range B-Natriuretic Peptide Pending Procalcitonin 2.41 H Hep Bs Antigen Hep Bs Antibody POC Glucose Microbiology 08/17/19 11:50 Blood Culture (Wb) - Right Hand Blood Culture - Preliminary No growth in 48 hours. 08/18/19 10:02 Sputum, Induced/Lukens Gram Stain - Final 08/18/19 10:02 Sputum, Induced/Lukens Respiratory Culture - Preliminary Culture exhibits no growth. 08/12/19 21:37 Blood Culture (Wb) - Anticubital Right Blood Culture - Final No growth in 5 days. 08/12/19 21:34 Blood Culture (Wb) - Anticubital Left Blood Culture - Final No growth in 5 days. Clinical Impression(s) from Imaging Studies Chest X-Ray 08/19/19 13:25 IMPRESSION: Progressive bilateral infiltrates. The tip of the right dialysis catheter is at the junction of superior vena cava and right atrium. Electronically Signed: Abdulaziz Romero, at 13:53 EDT , Service support , Medical Necessity - Tobacco Use Smoking Status: Never smoker Assessment/Plan All Active Problems (Last Reviewed 08/13/19 @ 01:[address] Matt Espinoza MD) Pneumonia (Acute) Hypoxia (Acute) COVID-19 (Acute) SARS-associated coronavirus infection (Acute) LI (acute kidney injury) (Acute) RECOMMENDATIONS: 1. Continue to wean FiO2 and PEEP to maintain oxygen saturations at or above 90%. 2. Continue empiric systemic anticoagulation 3. Anticipate hemodialysis with volume removal today. 4. Continue tube feeds as tolerated. 5. May use Zyprexa as needed moving forward 6. Spontaneous breathing and awakening trials per protocol 7. Continue appropriate GI prophylaxis. IMPRESSIONS: 1. Acute hypoxemic respiratory failure secondary to COVID-19 infection The patient did okay over the last 24 hours. Patient has been able to come off of Levophed. Patient tolerating discontinuation of paralytic. Patient currently off of antibiotics. Oxygenation status appears to be stabilizing/improving with hemodialysis. Patient has been afebrile for the first time since admission. We will continue with propofol and fentanyl. Unfortunately, Seroquel had to be discontinued secondary to QT prolongation. Patient with profound response to Zyprexa 2.5 mg. Will discontinue Ativan and may use Zyprexa if necessary for agitation. If patient is afebrile for another 24 hours, could consider transition to Precedex therapy. Will discontinue Ativan for breakthrough agitation. Patient did receive convalescent serum. 2. Acute kidney injury Continues to worsen. Likely related to ATN in the setting of #1, along with hemodynamic instability which was generated as a consequence of sedative utilization. Low-dose Levophed has been utilized to stabilize hemodynamics initially. Patient responded well to dialysis yesterday. Anticipate repeat dialysis today with volume removal. 3. Troponin elevation Minimal troponin elevation. Echocardiogram shows preserved ejection fraction. We will hold off on cardiology evaluation at this time. Clinical suspicion for supply demand mismatch leading to elevated troponins. Patient could be evaluated for coronary artery disease as an outpatient. Continue telemetry. 4. Unspecified seizure disorder/hypothyroidism/hypertension/obesity Complicates care, management, recovery and prognosis. Continue home medications as indicated. TIME: 39 minutes of critical care time, independent of procedures, was spent addressing the patient's acute hypoxemic respiratory failure secondary to COVID-19 infection, acute kidney injury, troponin elevation, review of all data and collaboration with the care team. (6 AM to 7 AM) 9xxxx: [id number] Critical care first hour
[2019-08-20 07:02] LABS: BNP,B-Type NATRIURETIC PEPTIDE 82.6 pg/mL (0-100)
--- NOTE | 2019-08-20 09:39 | CASEMGMT ---
Addendum entered by Carmina Khanna 08/20/19 10:23: Pt's called back, offered support. SW spoke w/her briefly about plans when pt is able to leave the hospital. Pt's is not in favor of sending pt to a snf. asked about the TCU, SW explained is uncertain if TCU can take COVID+ patients, but will find out for her and call her back. SW called [facility] in TCU, they are not takeing COVID+ patients. SW spoke w/other staff, the only snf in [facility] taking COVID+ patients is [facility]. SW called back, left message letting her know TCU cannot take COVID+ patients, and that [facility] is taking COVID+ patients. SW will continue to follow for discharge planning needs. RG Ingram Original Note: SW participated in ICU rounds. SW called on her cell phone, message left to call this SW back when able. RG Ignram
[2019-08-20] MEDS: Propofol 10MG/Ml 1,000 MG/100 ML Bottle 14.9 MG CONT INF ×2 (10:13→20:47)
[2019-08-20] MEDS: fentaNYL drip 100 ML 20 MCG IV ×2 (10:26→21:58)
[2019-08-20] MEDS: Levothyroxine 100 MCG Tablet GT (10:52)
[2019-08-20] MEDS: Phenytoin Na 100 MG/4 ML UDC 200 MG GT (10:52)
[2019-08-20] MEDS: Aspirin 81 MG TAB.CHEW GT (10:53)
[2019-08-20] MEDS: OLANZapine 2.5 MG Tablet GT ×2 (10:53→21:14)
[2019-08-20] MEDS: Chlorhexidine 15 ML PO ×2 (10:53→21:15)
[2019-08-20] MEDS: Lansoprazole 15 MG Capsule.DR GT ×2 (10:58→21:14)
--- NOTE | 2019-08-20 11:09 | PCM.PN.HOSP ---
Patient Problems: Active and Suspected Problems (Last Reviewed 08/13/19 @ 01:[address] Matt Espinoza MD) Pneumonia (Acute) Hypoxia (Acute) COVID-19 (Acute) SARS-associated coronavirus infection (Acute) LI (acute kidney injury) (Acute) Reason for Visit: COVID Subjective: Still with fevers. Vitals/I&O's: Vital Signs Temp Pulse Resp BP Pulse Ox 37.4 C H 74 19 H 126/66 H 94 08/20/19 09:00 08/20/19 09:32 08/20/19 09:32 08/20/19 09:00 08/20/19 09:32 Oxygen Flow Rate (L/min) 40 Oxygen Delivery Method Mechanical Ventilator Weight: 99.3 kg Body Mass Index (BMI) 31.1 Intake and Output for Last 24 Hours 08/18/19 08/19/19 08/20/19 23:59 23:59 23:59 Intake Total 2224.88 / 2362.31 3843.12 / 3940.22 1224.11 / 1224.11 Output Total 750 / 750 3150 / 3150 550 / 550 Balance 1474.88 / 1612.31 693.12 / 790.22 674.11 / 674.11 General: Alert, No apparent distress HEENT: Atraumatic, Normocephalic Oral: Moist Mucosa, No Gingival or Mucosal Lesions/ Ulcerations Neck: No Nodes, Thyroid Normal Size and Texture Lungs: Clear to auscultation, Normal air movement, No rhonchi, No wheeze, No rales Cardiovascular: Regular rate, Regular Rhythm, Normal S1, Normal S2, No murmurs Abdomen: Bowel Sounds Present, Soft, Non Tender, Non-Distended, No Hepato-splenomegaly Extremities: No edema, No Calf Tenderness Skin: No rashes, No breakdown Psych/Mental Status: Normal Affect, Appropriate Microbiology Past 72 Hours 08/17/19 11:50 Blood Culture (Wb) - Right Hand Blood Culture - Preliminary No growth in 48 hours. 08/18/19 10:02 Sputum, Induced/Lukens Gram Stain - Final 08/18/19 10:02 Sputum, Induced/Lukens Respiratory Culture - Preliminary Culture exhibits no growth. 08/12/19 21:37 Blood Culture (Wb) - Anticubital Right Blood Culture - Final No growth in 5 days. 08/12/19 21:34 Blood Culture (Wb) - Anticubital Left Blood Culture - Final No growth in 5 days. Laboratory Results 08/19/19 11:05: POC Glucose 176 H 08/19/19 13:25: APTT 33.3 08/19/19 16:30: Hep Bs Antigen Non-Reactive, Hep Bs Antibody Non-Reactive 08/19/19 18:16: POC Glucose 146 H 08/19/19 22:30: APTT 38.1 H 08/19/19 23:20: POC Glucose 137 H 08/20/19 05:15: POC Glucose 155 H 08/20/19 05:20: Sodium 142, Potassium 4.0, Chloride 106, Carbon Dioxide 27.0, Anion Gap 9, BUN 87 H, Creatinine 2.38 H, Estim Creat Clear Calc 26.41, Est GFR (MDRD) Af Amer 34 L, Est GFR (MDRD) Non-Af 28 L, BUN/Creatinine Ratio 36.6 H, Glucose 153 H, Calcium 8.3 L, Ferritin 1183 H, C-React Prot Ext Range 252.00 H 08/20/19 05:20: Procalcitonin 2.41 H 08/20/19 05:20: B-Natriuretic Peptide 82.6 08/20/19 05:20: APTT 39.5 H Current Medications Acetaminophen (Tylenol Liquid) 650 mg GT Q4H PRN PRN PRN Reason: Pain Score 1-10/Temp > 100.7 F Last Admin: 08/19/19 05:02 Dose: 650 mg Documented by: Aspirin (Aspirin, Baby) 81 mg GT DAILY@1000 [facility] Last Admin: 08/20/19 10:53 Dose: 81 mg Documented by: Chlorhexidine Gluconate () 15 ml PO BID [facility] Last Admin: 08/20/19 10:53 Dose: 15 ml Documented by: Dextrose (D50w Syringe) 0 gm IV X1 PRN; Protocol PRN Reason: Hypoglycemia Glucagon () 1 mg IM .X1 PRN PRN Reason: Hypoglycemia Guaifenesin (Robitussin) 10 ml GT 1000,1600,2200,0400 [facility] Last Admin: 08/20/19 10:52 Dose: 10 ml Documented by: Heparin Sodium (Porcine) (Heparin Na) 0 unit IV UD PRN; Protocol Last Admin: 08/20/19 06:08 Dose: 3,000 unit Documented by: Sodium Chloride () 250 mls @ 15 mls/hr IV .[id number] PRN PRN Reason: Saline Flush Sodium Chloride () 250 mls @ 15 mls/hr IV .[id number] PRN PRN Reason: Additional IVPB Infusion Fentanyl () 100 mls @ 5 mls/hr IV UD [facility]; Protocol Last Admin: 08/20/19 10:26 Dose: 200 mcg/hr, 20 mls/hr Documented by: Propofol (Diprivan) 1,000 mg in 100 mls @ 5.958 mls/hr CONT INF .Q12H [facility]; Protocol Last Admin: 08/20/19 10:13 Dose: 25 mcg/kg/min, 14.9 mls/hr Documented by: Enteral Nutritional Formula (Vital Af 1.2 Emanuel Liquid) 1,000 mls @ 65 mls/hr GT .[id number] [facility] Last Admin: 08/20/19 02:35 Dose: 65 mls/hr Documented by: Heparin Sodium/Dextrose () 25,000 units in 250 mls @ 14 mls/hr IV .[id number] [facility]; Protocol Last Titration: 08/20/19 06:09 Dose: 1,800 units/hr, 18 mls/hr Documented by: Norepinephrine Bitartrate 8 mg (/ Sodium Chloride) 250 mls @ 4.688 mls/hr CONT INF .[id number] [facility]; Protocol Insulin Human Lispro (Humalog Kwikpen (Bkc)) 0 unit SC 1000,1600,2200,0400 [facility]; Protocol Last Admin: 08/20/19 10:53 Dose: Not Given Documented by: Lansoprazole (Lansoprazole) 15 mg GT BID [facility] Last Admin: 08/20/19 10:58 Dose: 15 mg Documented by: Levothyroxine Sodium (Synthroid) 100 mcg GT DAILY [facility] Last Admin: 08/20/19 10:52 Dose: 100 mcg Documented by: Olanzapine (Zyprexa) 2.5 mg GT BID [facility] Last Admin: 08/20/19 10:53 Dose: 2.5 mg Documented by: Ondansetron HCl (Zofran) 4 mg IV Q8H PRN PRN PRN Reason: NAUSEA/VOMITING Phenytoin Sodium (Dilantin) 200 mg GT DAILY [facility] Last Admin: 08/20/19 10:52 Dose: 200 mg Documented by: Sodium Chloride () 10 - 40 ml IV UD PRN PRN Reason: SALINE FLUSH Last Admin: 08/18/19 14:41 Dose: 40 ml Documented by: STROKE Vital Signs/Narrative: Vital Signs Temp Pulse Resp BP Pulse Ox 08/20/19 09:32 74 19 H 94 08/20/19 09:00 37.4 C H 65 18 126/66 H 92 08/20/19 08:00 37.7 C H 68 21 H 148/63 H 92 Medical Necessity - Tobacco Use Smoking Status: Never smoker Assessment/Plan All Active Problems (Last Reviewed 08/13/19 @ 01:[address] Matt Espinoza MD) Pneumonia (Acute) Hypoxia (Acute) COVID-19 (Acute) SARS-associated coronavirus infection (Acute) LI (acute kidney injury) (Acute) 1. acute hypoxic respiratory failure still on vent, FiO2 40% 2/2 COVID +/- PNA +/- ALI had been on pip/tazo, but discontinued 08/16. received furosemide 40 08/17 2. COVID-19 received convalescent plasma on 08/12 3. NSTEMI: troponins peaked at 1.89 suspect demand ischemia echo shows EF 65%. on LMWH and ASA consider cardiology consultation depending on clinical course 4. LI non-oliguric nephrology consult received HD 5. VTE proph: anticoagulated. Inpatient E&M: 99555 Subs Hosp L2
[2019-08-20 11:45] LABS: Bedside Glucose 138 mg/dL (70-110)
--- NOTE | 2019-08-20 11:48 | PCM.PN.REN ---
Patient Problems: Active and Suspected Problems (Last Reviewed 08/13/19 @ 01:[address] Matt Espinoza MD) Pneumonia (Acute) Hypoxia (Acute) COVID-19 (Acute) SARS-associated coronavirus infection (Acute) LI (acute kidney injury) (Acute) Subjective: no new events - Physical Exam Vitals/I&O's: Vital Signs Temp Pulse Resp BP Pulse Ox 99.3 F H 74 19 H 119/59 L 94 08/20/19 09:00 08/20/19 09:32 08/20/19 09:32 08/20/19 11:35 08/20/19 09:32 Oxygen Flow Rate (L/min) 40 Oxygen Delivery Method Mechanical Ventilator Weight: 99.3 kg Body Mass Index (BMI) 31.1 Intake and Output for Last 24 Hours 08/18/19 08/19/19 08/20/19 23:59 23:59 23:59 Intake Total 2224.88 / 2362.31 3843.12 / 3940.22 1439.50 / 1439.50 Output Total 750 / 750 3150 / 3150 850 / 850 Balance 1474.88 / 1612.31 693.12 / 790.22 589.50 / 589.50 HEENT: Atraumatic, PERRLA, EOMI, Normocephalic Neck: Supple, No JVD, Negative Carotid Bruits Lungs: Normal air movement Cardiovascular: Regular rate, No murmurs Extremities: Edema Skin: No rashes Comment: exam minimized to conserve PPE Microbiology Past 72 Hours 08/17/19 16:45 Blood Culture (Wb) - Central Line Blood Culture - Preliminary No growth in 48 hours. 08/17/19 11:50 Blood Culture (Wb) - Right Hand Blood Culture - Preliminary No growth in 48 hours. 08/18/19 10:02 Sputum, Induced/Lukens Gram Stain - Final 08/18/19 10:02 Sputum, Induced/Lukens Respiratory Culture - Preliminary Culture exhibits no growth. 08/12/19 21:37 Blood Culture (Wb) - Anticubital Right Blood Culture - Final No growth in 5 days. 08/12/19 21:34 Blood Culture (Wb) - Anticubital Left Blood Culture - Final No growth in 5 days. Laboratory Results 08/19/19 13:25: APTT 33.3 08/19/19 16:30: Hep Bs Antigen Non-Reactive, Hep Bs Antibody Non-Reactive 08/19/19 18:16: POC Glucose 146 H 08/19/19 22:30: APTT 38.1 H 08/19/19 23:20: POC Glucose 137 H 08/20/19 05:15: POC Glucose 155 H 08/20/19 05:20: Sodium 142, Potassium 4.0, Chloride 106, Carbon Dioxide 27.0, Anion Gap 9, BUN 87 H, Creatinine 2.38 H, Estim Creat Clear Calc 26.41, Est GFR (MDRD) Af Amer 34 L, Est GFR (MDRD) Non-Af 28 L, BUN/Creatinine Ratio 36.6 H, Glucose 153 H, Calcium 8.3 L, Ferritin 1183 H, C-React Prot Ext Range 252.00 H 08/20/19 05:20: Procalcitonin 2.41 H 08/20/19 05:20: B-Natriuretic Peptide 82.6 08/20/19 05:20: APTT 39.5 H 08/20/19 10:51: POC Glucose 138 H Current Medications Acetaminophen (Tylenol Liquid) 650 mg GT Q4H PRN PRN PRN Reason: Pain Score 1-10/Temp > 100.7 F Last Admin: 08/19/19 05:02 Dose: 650 mg Documented by: Aspirin (Aspirin, Baby) 81 mg GT DAILY@1000 [facility] Last Admin: 08/20/19 10:53 Dose: 81 mg Documented by: Chlorhexidine Gluconate () 15 ml PO BID [facility] Last Admin: 08/20/19 10:53 Dose: 15 ml Documented by: Dextrose (D50w Syringe) 0 gm IV X1 PRN; Protocol PRN Reason: Hypoglycemia Glucagon () 1 mg IM .X1 PRN PRN Reason: Hypoglycemia Guaifenesin (Robitussin) 10 ml GT 1000,1600,2200,0400 [facility] Last Admin: 08/20/19 10:52 Dose: 10 ml Documented by: Heparin Sodium (Porcine) (Heparin Na) 0 unit IV UD PRN; Protocol Last Admin: 08/20/19 06:08 Dose: 3,000 unit Documented by: Sodium Chloride () 250 mls @ 15 mls/hr IV .[id number] PRN PRN Reason: Saline Flush Sodium Chloride () 250 mls @ 15 mls/hr IV .[id number] PRN PRN Reason: Additional IVPB Infusion Fentanyl () 100 mls @ 5 mls/hr IV UD [facility]; Protocol Last Admin: 08/20/19 10:26 Dose: 200 mcg/hr, 20 mls/hr Documented by: Propofol (Diprivan) 1,000 mg in 100 mls @ 5.958 mls/hr CONT INF .Q12H [facility]; Protocol Last Admin: 08/20/19 10:13 Dose: 25 mcg/kg/min, 14.9 mls/hr Documented by: Enteral Nutritional Formula (Vital Af 1.2 Emanuel Liquid) 1,000 mls @ 65 mls/hr GT .[id number] [facility] Last Admin: 08/20/19 02:35 Dose: 65 mls/hr Documented by: Heparin Sodium/Dextrose () 25,000 units in 250 mls @ 14 mls/hr IV .[id number] [facility]; Protocol Last Titration: 08/20/19 06:09 Dose: 1,800 units/hr, 18 mls/hr Documented by: Norepinephrine Bitartrate 8 mg (/ Sodium Chloride) 250 mls @ 4.688 mls/hr CONT INF .[id number] [facility]; Protocol Last Titration: 08/20/19 11:35 Dose: 2.5 mcg/min, 4.7 mls/hr Documented by: Insulin Human Lispro (Humalog Kwikpen (Bkc)) 0 unit SC 1000,1600,2200,0400 [facility]; Protocol Last Admin: 08/20/19 10:53 Dose: Not Given Documented by: Lansoprazole (Lansoprazole) 15 mg GT BID [facility] Last Admin: 08/20/19 10:58 Dose: 15 mg Documented by: Levothyroxine Sodium (Synthroid) 100 mcg GT DAILY [facility] Last Admin: 08/20/19 10:52 Dose: 100 mcg Documented by: Olanzapine (Zyprexa) 2.5 mg GT BID [facility] Last Admin: 08/20/19 10:53 Dose: 2.5 mg Documented by: Ondansetron HCl (Zofran) 4 mg IV Q8H PRN PRN PRN Reason: NAUSEA/VOMITING Phenytoin Sodium (Dilantin) 200 mg GT DAILY [facility] Last Admin: 08/20/19 10:52 Dose: 200 mg Documented by: Sodium Chloride () 10 - 40 ml IV UD PRN PRN Reason: SALINE FLUSH Last Admin: 08/18/19 14:41 Dose: 40 ml Documented by: Medical Necessity - Tobacco Use Smoking Status: Never smoker Assessment/Plan All Active Problems (Last Reviewed 08/13/19 @ 01:[address] Matt Espinoza MD) Pneumonia (Acute) Hypoxia (Acute) COVID-19 (Acute) SARS-associated coronavirus infection (Acute) LI (acute kidney injury) (Acute) LI. normal baseline. zarco in place, hence obstructive unlikely. UA reviewed, consistent with Covid related LI. oliguria with volume overload. seen on HD today tolerated HD well yesterday. able to remove some fluid today BP is lower. try pressors while on HD will change to isolated UF only to get fluid off FiO2 40% PEEP 8 urine output is still present dw staff
--- NOTE | 2019-08-20 11:59 | PCM.PN.ID ---
Patient Problems: Active and Suspected Problems (Last Reviewed 08/13/19 @ 01:[address] Matt Espinoza MD) Pneumonia (Acute) Hypoxia (Acute) COVID-19 (Acute) SARS-associated coronavirus infection (Acute) LI (acute kidney injury) (Acute) Subjective: Overall improved with volume removal. No fever overnight. - Physical Exam Vitals/I&O's: Vital Signs Temp Pulse Resp BP Pulse Ox 99.3 F H 74 19 H 119/59 L 94 08/20/19 09:00 08/20/19 09:32 08/20/19 09:32 08/20/19 11:35 08/20/19 09:32 Oxygen Flow Rate (L/min) 40 Oxygen Delivery Method Mechanical Ventilator Weight: 99.3 kg Body Mass Index (BMI) 31.1 Intake and Output for Last 24 Hours 08/18/19 08/19/19 08/20/19 23:59 23:59 23:59 Intake Total 2224.88 / 2362.31 3843.12 / 3940.22 1439.50 / 1439.50 Output Total 750 / 750 3150 / 3150 850 / 850 Balance 1474.88 / 1612.31 693.12 / 790.22 589.50 / 589.50 General: Non-Cooperative Lungs: Diminished Cardiovascular: Regular rate, Regular Rhythm Abdomen: Soft, Non Tender, Non-Distended Extremities: Edema Skin: No rashes Microbiology Past 72 Hours 08/17/19 16:45 Blood Culture (Wb) - Central Line Blood Culture - Preliminary No growth in 48 hours. 08/17/19 11:50 Blood Culture (Wb) - Right Hand Blood Culture - Preliminary No growth in 48 hours. 08/18/19 10:02 Sputum, Induced/Lukens Gram Stain - Final 08/18/19 10:02 Sputum, Induced/Lukens Respiratory Culture - Preliminary Culture exhibits no growth. 08/12/19 21:37 Blood Culture (Wb) - Anticubital Right Blood Culture - Final No growth in 5 days. 08/12/19 21:34 Blood Culture (Wb) - Anticubital Left Blood Culture - Final No growth in 5 days. Laboratory Results 08/19/19 13:25: APTT 33.3 08/19/19 16:30: Hep Bs Antigen Non-Reactive, Hep Bs Antibody Non-Reactive 08/19/19 18:16: POC Glucose 146 H 08/19/19 22:30: APTT 38.1 H 08/19/19 23:20: POC Glucose 137 H 08/20/19 05:15: POC Glucose 155 H 08/20/19 05:20: Sodium 142, Potassium 4.0, Chloride 106, Carbon Dioxide 27.0, Anion Gap 9, BUN 87 H, Creatinine 2.38 H, Estim Creat Clear Calc 26.41, Est GFR (MDRD) Af Amer 34 L, Est GFR (MDRD) Non-Af 28 L, BUN/Creatinine Ratio 36.6 H, Glucose 153 H, Calcium 8.3 L, Ferritin 1183 H, C-React Prot Ext Range 252.00 H 08/20/19 05:20: Procalcitonin 2.41 H 08/20/19 05:20: B-Natriuretic Peptide 82.6 08/20/19 05:20: APTT 39.5 H 08/20/19 10:51: POC Glucose 138 H 08/20/19 11:40: APTT Pending Current Medications Acetaminophen (Tylenol Liquid) 650 mg GT Q4H PRN PRN PRN Reason: Pain Score 1-10/Temp > 100.7 F Last Admin: 08/19/19 05:02 Dose: 650 mg Documented by: Aspirin (Aspirin, Baby) 81 mg GT DAILY@1000 [facility] Last Admin: 08/20/19 10:53 Dose: 81 mg Documented by: Chlorhexidine Gluconate () 15 ml PO BID [facility] Last Admin: 08/20/19 10:53 Dose: 15 ml Documented by: Dextrose (D50w Syringe) 0 gm IV X1 PRN; Protocol PRN Reason: Hypoglycemia Glucagon () 1 mg IM .X1 PRN PRN Reason: Hypoglycemia Guaifenesin (Robitussin) 10 ml GT 1000,1600,2200,0400 [facility] Last Admin: 08/20/19 10:52 Dose: 10 ml Documented by: Heparin Sodium (Porcine) (Heparin Na) 0 unit IV UD PRN; Protocol Last Admin: 08/20/19 06:08 Dose: 3,000 unit Documented by: Sodium Chloride () 250 mls @ 15 mls/hr IV .[id number] PRN PRN Reason: Saline Flush Sodium Chloride () 250 mls @ 15 mls/hr IV .[id number] PRN PRN Reason: Additional IVPB Infusion Fentanyl () 100 mls @ 5 mls/hr IV UD [facility]; Protocol Last Admin: 08/20/19 10:26 Dose: 200 mcg/hr, 20 mls/hr Documented by: Propofol (Diprivan) 1,000 mg in 100 mls @ 5.958 mls/hr CONT INF .Q12H [facility]; Protocol Last Admin: 08/20/19 10:13 Dose: 25 mcg/kg/min, 14.9 mls/hr Documented by: Enteral Nutritional Formula (Vital Af 1.2 Emanuel Liquid) 1,000 mls @ 65 mls/hr GT .[id number] [facility] Last Admin: 08/20/19 02:35 Dose: 65 mls/hr Documented by: Heparin Sodium/Dextrose () 25,000 units in 250 mls @ 14 mls/hr IV .[id number] [facility]; Protocol Last Titration: 08/20/19 06:09 Dose: 1,800 units/hr, 18 mls/hr Documented by: Norepinephrine Bitartrate 8 mg (/ Sodium Chloride) 250 mls @ 4.688 mls/hr CONT INF .[id number] [facility]; Protocol Last Titration: 08/20/19 11:35 Dose: 2.5 mcg/min, 4.7 mls/hr Documented by: Insulin Human Lispro (Humalog Kwikpen (Bkc)) 0 unit SC 1000,1600,2200,0400 [facility]; Protocol Last Admin: 08/20/19 10:53 Dose: Not Given Documented by: Lansoprazole (Lansoprazole) 15 mg GT BID [facility] Last Admin: 08/20/19 10:58 Dose: 15 mg Documented by: Levothyroxine Sodium (Synthroid) 100 mcg GT DAILY [facility] Last Admin: 08/20/19 10:52 Dose: 100 mcg Documented by: Olanzapine (Zyprexa) 2.5 mg GT BID [facility] Last Admin: 08/20/19 10:53 Dose: 2.5 mg Documented by: Ondansetron HCl (Zofran) 4 mg IV Q8H PRN PRN PRN Reason: NAUSEA/VOMITING Phenytoin Sodium (Dilantin) 200 mg GT DAILY [facility] Last Admin: 08/20/19 10:52 Dose: 200 mg Documented by: Sodium Chloride () 10 - 40 ml IV UD PRN PRN Reason: SALINE FLUSH Last Admin: 08/18/19 14:41 Dose: 40 ml Documented by: Medical Necessity - Tobacco Use Smoking Status: Never smoker Route of nutrition/ use of supplements: [] Nutritional Intake: [] IV Site: [] Neil Catheter: [] - Assessment/Plan Antibiotics: [] Assessment/Plan: [] Active and Suspected Problems (Last Reviewed 08/13/19 @ 01:[address] Matt Espinoza MD) Pneumonia (Acute) Hypoxia (Acute) COVID-19 (Acute) SARS-associated coronavirus infection (Acute) COVID with hypoxic resp failure - s/p convalescent plasma 08/12. MRSA screen neg. Completed short course empiric zosyn. Cxs neg so far. O2 much better, fever resolved now, inflammatory markers and PCT remain elevated. Will follow, d/w nursing
[2019-08-20 12:07] LABS: Partial Thromboplast Time 36.7 Seconds (24.1-36.2)
--- NOTE | 2019-08-20 13:01 | DIALYSIS ---
HD/IUF x3 hours completed, tolerated poor, dialysis stopped after 1h15m and switched to IUF only for remainder of tx due to hypotension, Levo started during tx to assist with fluid removal, UF 2200mL, accessed via right neck temporary dialysis catheter, worked well, 3rd tx planned for Sunday 08/20
[2019-08-20] MEDS: Propofol 10MG/Ml 1,000 MG/100 ML Bottle 11.9 MG CONT INF (16:33)
[2019-08-20 17:01] LABS: Bedside Glucose 140 mg/dL (70-110)
[2019-08-20] MEDS: HEPARIN/D5w 25,000 UNITS 25,000 UNITS/250 ML IV.SOLN. 20 UNITS IV (18:46)
[2019-08-20 21:31] LABS: Partial Thromboplast Time 50.8 Seconds (24.1-36.2)
[2019-08-21] VITALS (37 sets, daily range): BP systolic 87–151; BP diastolic 49–80; PULSE 48–105; RESP 14–47; TEMP 12.2–38.3; O2SAT 90–98
[2019-08-21 00:11] LABS: Bedside Glucose 133 mg/dL (70-110)
[2019-08-21] MEDS: Propofol 10MG/Ml 1,000 MG/100 ML Bottle 14.9 MG CONT INF (02:50)
[2019-08-21] MEDS: 0.9% Saline Lock 10 ML Syringe IV ×2 (03:22→03:23)
[2019-08-21] MEDS: guaiFENesin 10 ML UDC (200MG/10ML) GT ×4 (03:22→20:46)
[2019-08-21 03:40] LABS: Hematocrit 33.8 % (40-54); Hemoglobin 11.3 g/dL (13.0-16.5); Mean Corp Hgb Conc 33.4 g/dL (32-36); Mean Corpuscular Hgb 35.1 pg (27.0-32.0); Mean Platelet Vol. 9.5 fl (6.2-12.0); POSITIVE COUNT YES; POSITIVE DIFFERENTIAL YES; POSITIVE MORPHOLOGY YES; Platelet Count 664 K/mm3 (150-450); RBC Distribution Width SD 61.5 fl (35.1-43.9); Red Blood Count 3.22 M/mm3 (4.6-6.2); White Blood Count 7.7 K/mm3 (4.4-11.0)
[2019-08-21] MEDS: fentaNYL drip 100 ML 20 MCG IV ×3 (03:46→21:09)
[2019-08-21 03:49] LABS: Partial Thromboplast Time 57.5 Seconds (24.1-36.2)
[2019-08-21 03:55] LABS: Anion Gap 10 (5-15); BUN 89 mg/dL (7-18); BUN/Creat Ratio 44.5 RATIO (10-20); Chloride 104 mmol/L (98-107); EST Glomerular Filtration Rate 35 mL/min (>60); Est Glom Filt Rate - Afr Amer 42 mL/min (>60); Estimated Creatinine Clearance 31.43 ml/min; Glucose 141 mg/dL (74-106); Phosphorus 4.9 mg/dL (2.5-4.9); Potassium 3.8 mmol/L (3.5-5.1); Sodium Level 140 mmol/L (136-145)
[2019-08-21 04:23] LABS: Neutrophil-Segmented 81 % (47-70); Total Cells Counted 100 (MANUAL DIFF)
[2019-08-21 04:24] LABS: Differential Indicated MANUAL DIFF; Eosinophil 1 % (0-5); Lymphocyte 13 % (19-41); Macrocytosis 2+; Metamyelocyte 1 % (0-1); Monocyte 2 % (0-10); Myelocyte 2 (0-0); Platelet Estimate MOD INC (ADEQ); Red Cell Morphology N CHROM NORMAL (NORM C&C)
[2019-08-21 04:25] LABS: Absolute Neutrophil Count 6.2 X10^3/uL (2.0-7.7); Neutrophil # 6.24 X10^3/uL (2.7-7.7)
[2019-08-21] MEDS: HEPARIN/D5w 25,000 UNITS 25,000 UNITS/250 ML IV.SOLN. 21 UNITS IV ×2 (05:28→17:45)
[2019-08-21 05:36] LABS: Bedside Glucose 147 mg/dL (70-110)
--- NOTE | 2019-08-21 05:41 | CPS ---
pt failed SAT, no breathing trial done, resp rate in 40's even after sedation restarted. RN notified so she could further increase sedation.
[2019-08-21 06:03] LABS: CPK Total, Creatine Kinase 63 U/L (39-308); Triglycerides 250 mg/dL
[2019-08-21] MEDS: Propofol 10MG/Ml 1,000 MG/100 ML Bottle 23.8 MG CONT INF (06:30)
--- NOTE | 2019-08-21 06:38 | PN_ITS ---
Subjective: Patient did okay overnight. Patient did have hemodialysis yesterday and required Levophed for volume removal. Patient did last 30 minutes on a spo ntaneous awakening trial this morning, but this was discontinued secondary to tachycardia and tachypnea. Patient has remained afebrile. PEEP has been weaned to 5. Respiratory reported moderate secretions. General: - - Intubated and sedated. Mildly diaphoretic. HEENT: Atraumatic, PERRLA, EOMI, Normocephalic, - - Scleral injection without icterus Oral: Moist Mucosa, No Gingival or Mucosal Lesions/ Ulcerations Neck: Supple, No Nodes, Trachea Midline, - - IJ lines are clean, dry and intact Lungs: No wheeze, No rales, Diminished, Rhonchi, - - Symmetric expansion. No dullness to percussion. Cardiovascular: Regular rate, Regular Rhythm, Normal S1, Normal S2, No murmurs, No rub noted, No Gallop, - - Some sinus bradycardia noted overnight on telemetry Abdomen: Bowel Sounds Present, Soft, Non Tender, Distended, Obese Extremities: No clubbing, No cyanosis, Edema Skin: - - No change compared to previous Musculoskeletal: No Tenderness to Palpation of Joints or Extremities Lymphatic: No Cervical, Supraclavicular, or Inguinal Adenopathy Neurological: Cranial nerves II-XII grossly intact, Neuro grossly intact Psych/Mental Status: Impulsive, Restless Vital Signs Temp Pulse Resp BP Pulse Ox 37.5 C H 63 24 H 138/61 H 97 08/21/19 06:00 08/21/19 06:00 08/21/19 06:00 08/21/19 06:00 08/21/19 06:00 Oxygen Flow Rate (L/min) 40 Oxygen Delivery Method Mechanical Ventilator Weight: 98.4 kg Body Mass Index (BMI) 31.1 Intake and Output for Last 24 Hours 08/19/19 08/20/19 08/21/19 23:59 23:59 23:59 Intake Total 3843.12 / 3940.22 2910.01 / 3528.16 1557.10 / 1557.10 Output Total 3150 / 3150 4055 / 4230 775 / 775 Balance 693.12 / 790.22 -1144.99 / -701.84 782.10 / 782.10 Labs (Last 48 Hours) 08/19/19 08/19/19 08/19/19 05:10 11:05 13:25 WBC RBC Hgb Hct MCV MCH MCHC RDW Std Deviation RDW Coeff of Nacho Plt Count MPV Neut % (Auto) Absolute Neuts (auto) Absolute Lymphs (auto) Total Counted Neutrophils % (Manual) Lymphocytes % (Manual) Monocytes % (Manual) Eosinophils % (Manual) Metamyelocytes % Myelocytes % Diff Path Review Reviewed Platelet Estimate RBC Morphology Macrocytosis APTT 33.3 Sodium Potassium Chloride Carbon Dioxide Anion Gap BUN Creatinine Estim Creat Clear Calc Est GFR (MDRD) Af Amer Est GFR (MDRD) Non-Af BUN/Creatinine Ratio Glucose Calcium Phosphorus Magnesium Ferritin Total Creatine Kinase C-React Prot Ext Range B-Natriuretic Peptide Triglycerides Procalcitonin Hep Bs Antigen Hep Bs Antibody Hep B Core Total Ab POC Glucose 176 H 08/19/19 08/19/19 08/19/19 16:30 16:30 18:16 WBC RBC Hgb Hct MCV MCH MCHC RDW Std Deviation RDW Coeff of Nacho Plt Count MPV Neut % (Auto) Absolute Neuts (auto) Absolute Lymphs (auto) Total Counted Neutrophils % (Manual) Lymphocytes % (Manual) Monocytes % (Manual) Eosinophils % (Manual) Metamyelocytes % Myelocytes % Diff Path Review Platelet Estimate RBC Morphology Macrocytosis APTT Sodium Potassium Chloride Carbon Dioxide Anion Gap BUN Creatinine Estim Creat Clear Calc Est GFR (MDRD) Af Amer Est GFR (MDRD) Non-Af BUN/Creatinine Ratio Glucose Calcium Phosphorus Magnesium Ferritin Total Creatine Kinase C-React Prot Ext Range B-Natriuretic Peptide Triglycerides Procalcitonin Hep Bs Antigen Non-Reactive Hep Bs Antibody Non-Reactive Hep B Core Total Ab Pending POC Glucose 146 H 08/19/19 08/19/19 08/20/19 22:30 23:20 05:15 WBC RBC Hgb Hct MCV MCH MCHC RDW Std Deviation RDW Coeff of Nacho Plt Count MPV Neut % (Auto) Absolute Neuts (auto) Absolute Lymphs (auto) Total Counted Neutrophils % (Manual) Lymphocytes % (Manual) Monocytes % (Manual) Eosinophils % (Manual) Metamyelocytes % Myelocytes % Diff Path Review Platelet Estimate RBC Morphology Macrocytosis APTT 38.1 H Sodium Potassium Chloride Carbon Dioxide Anion Gap BUN Creatinine Estim Creat Clear Calc Est GFR (MDRD) Af Amer Est GFR (MDRD) Non-Af BUN/Creatinine Ratio Glucose Calcium Phosphorus Magnesium Ferritin Total Creatine Kinase C-React Prot Ext Range B-Natriuretic Peptide Triglycerides Procalcitonin Hep Bs Antigen Hep Bs Antibody Hep B Core Total Ab POC Glucose 137 H 155 H 08/20/19 08/20/19 08/20/19 05:20 05:20 05:20 WBC RBC Hgb Hct MCV MCH MCHC RDW Std Deviation RDW Coeff of Nacho Plt Count MPV Neut % (Auto) Absolute Neuts (auto) Absolute Lymphs (auto) Total Counted Neutrophils % (Manual) Lymphocytes % (Manual) Monocytes % (Manual) Eosinophils % (Manual) Metamyelocytes % Myelocytes % Diff Path Review Platelet Estimate RBC Morphology Macrocytosis APTT Sodium 142 Potassium 4.0 Chloride 106 Carbon Dioxide 27.0 Anion Gap 9 BUN 87 H Creatinine 2.38 H Estim Creat Clear Calc 26.41 Est GFR (MDRD) Af Amer 34 L Est GFR (MDRD) Non-Af 28 L BUN/Creatinine Ratio 36.6 H Glucose 153 H Calcium 8.3 L Phosphorus Magnesium Ferritin 1183 H Total Creatine Kinase C-React Prot Ext Range 252.00 H B-Natriuretic Peptide 82.6 Triglycerides Procalcitonin 2.41 H Hep Bs Antigen Hep Bs Antibody Hep B Core Total Ab POC Glucose 08/20/19 08/20/19 08/20/19 05:20 10:51 11:40 WBC RBC Hgb Hct MCV MCH MCHC RDW Std Deviation RDW Coeff of Nacho Plt Count MPV Neut % (Auto) Absolute Neuts (auto) Absolute Lymphs (auto) Total Counted Neutrophils % (Manual) Lymphocytes % (Manual) Monocytes % (Manual) Eosinophils % (Manual) Metamyelocytes % Myelocytes % Diff Path Review Platelet Estimate RBC Morphology Macrocytosis APTT 39.5 H 36.7 H Sodium Potassium Chloride Carbon Dioxide Anion Gap BUN Creatinine Estim Creat Clear Calc Est GFR (MDRD) Af Amer Est GFR (MDRD) Non-Af BUN/Creatinine Ratio Glucose Calcium Phosphorus Magnesium Ferritin Total Creatine Kinase C-React Prot Ext Range B-Natriuretic Peptide Triglycerides Procalcitonin Hep Bs Antigen Hep Bs Antibody Hep B Core Total Ab POC Glucose 138 H 08/20/19 08/20/19 08/20/19 16:30 21:03 21:10 WBC RBC Hgb Hct MCV MCH MCHC RDW Std Deviation RDW Coeff of Nacho Plt Count MPV Neut % (Auto) Absolute Neuts (auto) Absolute Lymphs (auto) Total Counted Neutrophils % (Manual) Lymphocytes % (Manual) Monocytes % (Manual) Eosinophils % (Manual) Metamyelocytes % Myelocytes % Diff Path Review Platelet Estimate RBC Morphology Macrocytosis APTT 50.8 H Sodium Potassium Chloride Carbon Dioxide Anion Gap BUN Creatinine Estim Creat Clear Calc Est GFR (MDRD) Af Amer Est GFR (MDRD) Non-Af BUN/Creatinine Ratio Glucose Calcium Phosphorus Magnesium Ferritin Total Creatine Kinase C-React Prot Ext Range B-Natriuretic Peptide Triglycerides Procalcitonin Hep Bs Antigen Hep Bs Antibody Hep B Core Total Ab POC Glucose 140 H 133 H 08/21/19 08/21/19 08/21/19 03:25 03:25 03:25 WBC 7.7 RBC 3.22 L Hgb 11.3 L Hct 33.8 L MCV 105.0 H MCH 35.1 H MCHC 33.4 RDW Std Deviation 61.5 H RDW Coeff of Nacho 16.0 H Plt Count 664 H MPV 9.5 Neut % (Auto) Not Reportable Absolute Neuts (auto) 6.2 Absolute Lymphs (auto) 1.00 Total Counted 100 Neutrophils % (Manual) 81 H Lymphocytes % (Manual) 13 L Monocytes % (Manual) 2 Eosinophils % (Manual) 1 Metamyelocytes % 1 Myelocytes % 2 H Diff Path Review May foll Platelet Estimate MOD INC RBC Morphology N CHROM Macrocytosis 2+ APTT 57.5 H Sodium 140 Potassium 3.8 Chloride 104 Carbon Dioxide 26.0 Anion Gap 10 BUN 89 H Creatinine 2.00 H Estim Creat Clear Calc 31.43 Est GFR (MDRD) Af Amer 42 L Est GFR (MDRD) Non-Af 35 L BUN/Creatinine Ratio 44.5 H Glucose 141 H Calcium 8.0 L Phosphorus 4.9 Magnesium 3.0 H Ferritin Total Creatine Kinase C-React Prot Ext Range B-Natriuretic Peptide Triglycerides Procalcitonin Hep Bs Antigen Hep Bs Antibody Hep B Core Total Ab POC Glucose 08/21/19 08/21/19 03:25 03:30 WBC RBC Hgb Hct MCV MCH MCHC RDW Std Deviation RDW Coeff of Nacho Plt Count MPV Neut % (Auto) Absolute Neuts (auto) Absolute Lymphs (auto) Total Counted Neutrophils % (Manual) Lymphocytes % (Manual) Monocytes % (Manual) Eosinophils % (Manual) Metamyelocytes % Myelocytes % Diff Path Review Platelet Estimate RBC Morphology Macrocytosis APTT Sodium Potassium Chloride Carbon Dioxide Anion Gap BUN Creatinine Estim Creat Clear Calc Est GFR (MDRD) Af Amer Est GFR (MDRD) Non-Af BUN/Creatinine Ratio Glucose Calcium Phosphorus Magnesium Ferritin Total Creatine Kinase 63 C-React Prot Ext Range B-Natriuretic Peptide Triglycerides 250 H Procalcitonin Hep Bs Antigen Hep Bs Antibody Hep B Core Total Ab POC Glucose 147 H Microbiology 08/17/19 16:45 Blood Culture (Wb) - Central Line Blood Culture - Preliminary No growth in 48 hours. 08/17/19 11:50 Blood Culture (Wb) - Right Hand Blood Culture - Preliminary No growth in 48 hours. 08/18/19 10:02 Sputum, Induced/Lukens Gram Stain - Final 08/18/19 10:02 Sputum, Induced/Lukens Respiratory Culture - Preliminary Culture exhibits no growth. Medical Necessity - Tobacco Use Smoking Status: Never smoker Assessment/Plan All Active Problems (Last Reviewed 08/13/19 @ 01:[address] Matt Espinoza MD) Pneumonia (Acute) Hypoxia (Acute) COVID-19 (Acute) SARS-associated coronavirus infection (Acute) LI (acute kidney injury) (Acute) RECOMMENDATIONS: 1. Continue to wean FiO2 and PEEP to maintain oxygen saturations at or above 90%. 2. Continue empiric systemic anticoagulation 3. Defer to nephrology on hemodialysis. Volume removal if possible 4. Continue tube feeds as tolerated. 5. Continue Zyprexa. Transition from propofol to Precedex to facilitate spontaneous awakening trial 6. Spontaneous breathing and awakening trials per protocol 7. Continue appropriate GI prophylaxis. IMPRESSIONS: 1. Acute hypoxemic respiratory failure secondary to COVID-19 infection The patient did okay over the last 24 hours. Patient has been able to come off of Levophed. Patient tolerating discontinuation of paralytic. Patient currently off of antibiotics and has been afebrile for 48 hours. Oxygenation status appears to be stabilizing/improving with hemodialysis. Patient has been afebrile for the first time since admission. We will continue with propofol and fentanyl. Unfortunately, Seroquel had to be discontinued secondary to QT prolongation. Patient with profound response to Zyprexa 2.5 mg. Will discontinue Ativan and may use Zyprexa for agitation. We will transition patient over to Precedex therapy to attempt to facilitate a spontaneous breathing trial. Patient did receive convalescent serum. 2. Acute kidney injury Creatinine is improving, but patient has received hemodialysis the last 2 days. Likely related to ATN in the setting of #1, along with hemodynamic instability which was generated as a consequence of sedative utilization. Low- dose Levophed has been utilized to stabilize hemodynamics with dialysis. Portia ent responded well to dialysis yesterday. Urine output does appear to be improving 3. Troponin elevation Minimal troponin elevation. Echocardiogram shows preserved ejection fraction. We will hold off on cardiology evaluation at this time. Clinical suspicion for supply demand mismatch leading to elevated troponins. Patient could be evaluated for coronary artery disease as an outpatient. Continue telemetry. 4. Unspecified seizure disorder/hypothyroidism/hypertension/obesity Complicates care, management, recovery and prognosis. Continue home medications as indicated. TIME: 32 minutes of critical care time, independent of procedures, was spent addressing the patient's acute hypoxemic respiratory failure secondary to COVID- 19 infection, acute kidney injury, troponin elevation, review of all data and collaboration with the care team. (5:30 AM to 6:30 AM) [id number]: [id number] Critical care first hour
[2019-08-21] MEDS: Aspirin 81 MG TAB.CHEW GT (08:10)
[2019-08-21] MEDS: Lansoprazole 15 MG Capsule.DR GT ×2 (08:10→20:46)
[2019-08-21] MEDS: Vital AF 1.2 Cal Liquid 1,000 ML 65 ML GT ×2 (08:10→22:17)
[2019-08-21] MEDS: Levothyroxine 100 MCG Tablet GT (08:10)
[2019-08-21] MEDS: Phenytoin Na 100 MG/4 ML UDC 200 MG GT (08:10)
[2019-08-21] MEDS: OLANZapine 2.5 MG Tablet GT ×3 (08:10→22:11)
[2019-08-21] MEDS: Chlorhexidine 15 ML PO ×2 (08:10→20:44)
[2019-08-21 08:46] LABS: Bedside Glucose 155 mg/dL (70-110)
[2019-08-21] MEDS: Insulin Lispro 100 UNIT/ML INSULN.PEN SC ×2 (09:06→20:45)
--- NOTE | 2019-08-21 10:01 | PN_ITS ---
Patient Problems: Active and Suspected Problems (Last Reviewed 08/13/19 @ 01:[address] Matt Espinoza MD) Pneumonia (Acute) Hypoxia (Acute) COVID-19 (Acute) SARS-associated coronavirus infection (Acute) LI (acute kidney injury) (Acute) Reason for Visit: COVID-19 Subjective: Still on vent. No fevers overnight. Vitals/I&O's: Vital Signs Temp Pulse Resp BP Pulse Ox 37.5 C H 62 34 H 138/61 H 94 08/21/19 06:00 08/21/19 06:49 08/21/19 06:49 08/21/19 06:00 08/21/19 06:49 Oxygen Flow Rate (L/min) 40 Oxygen Delivery Method Mechanical Ventilator Weight: 98.4 kg Body Mass Index (BMI) 31.1 Intake and Output for Last 24 Hours 08/19/19 08/20/19 08/21/19 23:59 23:59 23:59 Intake Total 3843.12 / 3940.22 2910.01 / 3528.16 1741.82 / 1741.82 Output Total 3150 / 3150 4055 / 4230 775 / 775 Balance 693.12 / 790.22 -1144.99 / -701.84 966.82 / 966.82 General: - - seen on HD HEENT: Atraumatic, Normocephalic Oral: - - ETT OG in place Neck: No Nodes, Thyroid Normal Size and Texture Lungs: Normal air movement, - - coarse breath sounds bilaterally. Cardiovascular: Regular rate, Regular Rhythm, Normal S1, Normal S2, No murmurs Abdomen: Bowel Sounds Present, Soft, Non Tender, Non-Distended, No Hepato- splenomegaly, Passing Flatus Extremities: No edema, No Calf Tenderness Skin: No rashes, No breakdown Musculoskeletal: No Tenderness to Palpation of Joints or Extremities, No Muscle Wasting Psych/Mental Status: Normal Affect, Appropriate Microbiology Past 72 Hours 08/18/19 10:02 Sputum, Induced/Lukens Gram Stain - Final 08/18/19 10:02 Sputum, Induced/Lukens Respiratory Culture - Final Culture exhibits no growth. 08/17/19 16:45 Blood Culture (Wb) - Central Line Blood Culture - Preliminary No growth in 48 hours. 08/17/19 11:50 Blood Culture (Wb) - Right Hand Blood Culture - Preliminary No growth in 48 hours. 08/12/19 21:37 Blood Culture (Wb) - Anticubital Right Blood Culture - Final No growth in 5 days. 08/12/19 21:34 Blood Culture (Wb) - Anticubital Left Blood Culture - Final No growth in 5 days. Laboratory Results 08/19/19 16:30: Hep B Core Total Ab Pending 08/20/19 10:51: POC Glucose 138 H 08/20/19 11:40: APTT 36.7 H 08/20/19 16:30: POC Glucose 140 H 08/20/19 21:03: POC Glucose 133 H 08/20/19 21:10: APTT 50.8 H 08/21/19 03:25: APTT 57.5 H 08/21/19 03:25: WBC 7.7, RBC 3.22 L, Hgb 11.3 L, Hct 33.8 L, MCV 105.0 H, MCH 35.1 H, MCHC 33.4, RDW Std Deviation 61.5 H, RDW Coeff of Nacho 16.0 H, Plt Count 664 H, MPV 9.5, Neut % (Auto) Not Reportable, Absolute Neuts (auto) 6.2, Absolute Lymphs (auto) 1.00, Total Counted 100, Neutrophils % (Manual) 81 H, Lymphocytes % (Manual) 13 L, Monocytes % (Manual) 2, Eosinophils % (Manual) 1, Metamyelocytes % 1, Myelocytes % 2 H, Diff Path Review May foll, Platelet Estimate MOD INC, RBC Morphology N CHROM, Macrocytosis 2+ 08/21/19 03:25: Sodium 140, Potassium 3.8, Chloride 104, Carbon Dioxide 26.0, Anion Gap 10, BUN 89 H, Creatinine 2.00 H, Estim Creat Clear Calc 31.43, Est GFR (MDRD) Af Amer 42 L, Est GFR (MDRD) Non-Af 35 L, BUN/Creatinine Ratio 44.5 H, Glucose 141 H, Calcium 8.0 L, Phosphorus 4.9, Magnesium 3.0 H 08/21/19 03:25: Total Creatine Kinase 63, Triglycerides 250 H 08/21/19 03:30: POC Glucose 147 H 08/21/19 08:36: POC Glucose 155 H 08/21/19 09:50: APTT Pending Current Medications Acetaminophen (Tylenol Liquid) 650 mg GT Q4H PRN PRN PRN Reason: Pain Score 1-10/Temp > 100.7 F Last Admin: 08/19/19 05:02 Dose: 650 mg Documented by: Aspirin (Aspirin, Baby) 81 mg GT DAILY@1000 LEONARD Last Admin: 08/21/19 08:10 Dose: 81 mg Documented by: Chlorhexidine Gluconate () 15 ml PO BID [facility] Last Admin: 08/21/19 08:10 Dose: 15 ml Documented by: Dextrose (D50w Syringe) 0 gm IV X1 PRN; Protocol PRN Reason: Hypoglycemia Glucagon () 1 mg IM .X1 PRN PRN Reason: Hypoglycemia Guaifenesin (Robitussin) 10 ml GT 1000,1600,2200,0400 [facility] Last Admin: 08/21/19 08:10 Dose: 10 ml Documented by: Heparin Sodium (Porcine) (Heparin Na) 0 unit IV UD PRN; Protocol Last Admin: 08/20/19 21:45 Dose: 1,000 unit Documented by: Sodium Chloride () 250 mls @ 15 mls/hr IV .[id number] PRN PRN Reason: Saline Flush Sodium Chloride () 250 mls @ 15 mls/hr IV .[id number] PRN PRN Reason: Additional IVPB Infusion Fentanyl () 100 mls @ 5 mls/hr IV UD [facility]; Protocol Last Titration: 08/21/19 09:00 Dose: 1,750 mcg/hr, 175 mls/hr Documented by: Propofol (Diprivan) 1,000 mg in 100 mls @ 5.904 mls/hr CONT INF .Q12H [facility]; Protocol Last Titration: 08/21/19 09:45 Dose: 20 mcg/kg/min, 11.8 mls/hr Documented by: Enteral Nutritional Formula (Vital Af 1.2 Emanuel Liquid) 1,000 mls @ 65 mls/hr GT .[id number] [facility] Last Admin: 08/21/19 08:10 Dose: 65 mls/hr Documented by: Heparin Sodium/Dextrose () 25,000 units in 250 mls @ 14 mls/hr IV .[id number] [facility]; Protocol Last Titration: 08/21/19 09:00 Dose: 2,100 units/hr, 21 mls/hr Documented by: Norepinephrine Bitartrate 8 mg (/ Sodium Chloride) 250 mls @ 4.688 mls/hr CONT INF .[id number] [facility]; Protocol Last Titration: 08/21/19 09:00 Dose: 0 mcg/min, 0 mls/hr Documented by: Dexmedetomidine HCl 400 mcg/ (Sodium Chloride) 100 mls @ 12.3 mls/hr CONT INF .Q8H8M [facility]; Protocol Last Titration: 08/21/19 09:45 Dose: 0.03 mcg/kg/hr, 0.8 mls/hr Documented by: Insulin Human Lispro (Humalog Kwikpen (Bkc)) 0 unit SC 1000,1600,2200,0400 [facility]; Protocol Last Admin: 08/21/19 09:06 Dose: 1 u Documented by: Lansoprazole (Lansoprazole) 15 mg GT BID [facility] Last Admin: 08/21/19 08:10 Dose: 15 mg Documented by: Levothyroxine Sodium (Synthroid) 100 mcg GT DAILY [facility] Last Admin: 08/21/19 08:10 Dose: 100 mcg Documented by: Olanzapine (Zyprexa) 2.5 mg GT BID [facility] Last Admin: 08/21/19 08:10 Dose: 2.5 mg Documented by: Ondansetron HCl (Zofran) 4 mg IV Q8H PRN PRN PRN Reason: NAUSEA/VOMITING Phenytoin Sodium (Dilantin) 200 mg GT DAILY [facility] Last Admin: 08/21/19 08:10 Dose: 200 mg Documented by: Sodium Chloride () 10 - 40 ml IV UD PRN PRN Reason: SALINE FLUSH Last Admin: 08/21/19 03:23 Dose: 40 ml Documented by: STROKE Vital Signs/Narrative: Vital Signs Pulse Resp Pulse Ox 08/21/19 06:49 62 34 H 94 Medical Necessity - Tobacco Use Smoking Status: Never smoker Assessment/Plan All Active Problems (Last Reviewed 08/13/19 @ 01:[address] Matt Espinoza MD) Pneumonia (Acute) Hypoxia (Acute) COVID-19 (Acute) SARS-associated coronavirus infection (Acute) LI (acute kidney injury) (Acute) 1. acute hypoxic respiratory failure * still on vent, FiO2 40% * 2/2 COVID +/- PNA +/- ALI * had been on pip/tazo, but discontinued 08/16. * received furosemide 40 08/17 2. COVID-19 * received convalescent plasma on 08/12 3. NSTEMI: * troponins peaked at 1.89 * suspect demand ischemia * echo shows EF 65%. * on LMWH and ASA * consider cardiology consultation depending on clinical course 4. LI * non-oliguric * nephrology consult * receiving HD 5. VTE proph: anticoagulated. Inpatient E&M: [id number] Subs Hosp L2
[2019-08-21] MEDS: fentaNYL drip 100 ML 17.5 MCG IV (11:00)
[2019-08-21] MEDS: Alteplase 2 MG/2 ML Vial IV (12:15)
--- NOTE | 2019-08-21 12:46 | DIALYSIS ---
hemodialysis completed x 3 hrs. Access via right neck temp HD cath. 3K bath. net fluid removal 2000ml. See HD flowsheet on chart. Report to Antoine KERN.
--- NOTE | 2019-08-21 13:14 | EKG12_ITS ---
Test Reason : ARYTHMIA Blood Pressure : / mmHG Vent. Rate : 082 BPM Atrial Rate : 082 BPM P-R Int : 298 ms QRS Dur : 116 ms QT Int : 384 ms P-R-T Axes : 056 -50 080 degrees QTc Int : 448 ms Sinus rhythm with 1st degree A-V block Left anterior fascicular block Left ventricular hypertrophy with QRS widening and repolarization abnormality Abnormal ECG No previous ECGs available Confirmed by JUSTINO CARTAGENA ([id number]), news assignment editor JAX MOLINA ([id number]) on 09/02/2019 1:08:50 PM Referred By: Confirmed By:JUSTINO CARTAGENA
[2019-08-21] MEDS: Dexmedetomidine 1,000 mcg in 0.9% NS 240 mL 36.9 MCG CONT INF (13:30)
[2019-08-21 15:35] LABS: Bedside Glucose 136 mg/dL (70-110)
[2019-08-21] MEDS: Dexmedetomidine 1,000 mcg in 0.9% NS 240 mL 29.5 MCG CONT INF (20:12)
[2019-08-21 23:31] LABS: Bedside Glucose 161 mg/dL (70-110)
[2019-08-22] VITALS (37 sets, daily range): BP systolic 109–167; BP diastolic 56–91; PULSE 38–87; RESP 10–38; TEMP 36.6–37.4; O2SAT 95–100
[2019-08-22] MEDS: fentaNYL drip 100 ML 20 MCG IV ×5 (03:00→23:09)
[2019-08-22] MEDS: guaiFENesin 10 ML UDC (200MG/10ML) GT ×4 (03:14→21:10)
[2019-08-22] MEDS: Insulin Lispro 100 UNIT/ML INSULN.PEN SC ×2 (03:14→15:30)
[2019-08-22] MEDS: Dexmedetomidine 1,000 mcg in 0.9% NS 240 mL 36.9 MCG CONT INF (03:27)
[2019-08-22 03:41] LABS: Hematocrit 36.9 % (40-54); Hemoglobin 12.1 g/dL (13.0-16.5); Mean Corp Hgb Conc 32.8 g/dL (32-36); Mean Corpuscular Hgb 33.9 pg (27.0-32.0); Mean Corpuscular Volume 103.4 fL (80-94); Mean Platelet Vol. 9.7 fl (6.2-12.0); POSITIVE COUNT YES; POSITIVE MORPHOLOGY YES; Platelet Count 680 K/mm3 (150-450); RBC Distribution Width CV 15.4 % (11.6-14.6); RBC Distribution Width SD 59.2 fl (35.1-43.9); Red Blood Count 3.57 M/mm3 (4.6-6.2); White Blood Count 14.6 K/mm3 (4.4-11.0)
[2019-08-22 03:43] LABS: Partial Thromboplast Time 58.1 Seconds (24.1-36.2)
[2019-08-22 03:44] LABS: Anion Gap 9 (5-15); BUN 74 mg/dL (7-18); BUN/Creat Ratio 47.1 RATIO (10-20); Chloride 103 mmol/L (98-107); Creatinine, Serum 1.57 mg/dL (0.70-1.30); EST Glomerular Filtration Rate 46 mL/min (>60); Est Glom Filt Rate - Afr Amer 55 mL/min (>60); Estimated Creatinine Clearance 40.04 ml/min; Glucose 163 mg/dL (74-106); Magnesium 2.7 mg/dL (1.6-2.6); Phosphorus 5.4 mg/dL (2.5-4.9); Potassium 3.8 mmol/L (3.5-5.1); Sodium Level 138 mmol/L (136-145)
[2019-08-22 03:45] LABS: Differential Indicated MANUAL DIFF
[2019-08-22] MEDS: HEPARIN/D5w 25,000 UNITS 25,000 UNITS/250 ML IV.SOLN. 21 UNITS IV ×2 (05:18→16:21)
--- NOTE | 2019-08-22 05:22 | CPS ---
pt can not tolerate any change is sedation. He's barely slept tonight, always moving something. Seemed restless most of the night. resp rate incresed with stimulation and sedation changes. No breathing trial attempted.
[2019-08-22 05:36] LABS: Bedside Glucose 168 mg/dL (70-110)
[2019-08-22] MEDS: TITRATION PARAMETER CHANGE 1 EACH IV (06:05)
[2019-08-22 07:15] LABS: Lymphocyte 11 % (19-41); Monocyte 2 % (0-10); Neutrophil-Segmented 74 % (47-70); Total Cells Counted 100 (MANUAL DIFF)
[2019-08-22 07:16] LABS: Neutrophil-Band 9 % (0-5)
[2019-08-22 07:17] LABS: Metamyelocyte 4 % (0-1)
[2019-08-22 07:20] LABS: Absolute Lymphocyte Count 0.58 X10^3/uL (0.83-4.51); Absolute Neutrophil Count 12.1 X10^3/uL (2.0-7.7); Lymphocyte # 0.58 X10^3/ul (4.0); Neutrophil # 12.08 X10^3/uL (2.7-7.7)
[2019-08-22 07:21] LABS: Hypochromasia RARE; Macrocytosis 1+; Platelet Estimate MOD INC (ADEQ); Polychromasia RARE
--- NOTE | 2019-08-22 07:49 | PN_ITS ---
Subjective: Patient did okay overnight. Patient did have some increased agitation and restlessness with transition to Precedex therapy. Patient was given an extra dose of Zyprexa with marginal improvement. Patient did spike a fever overnight, but had no hemodynamic instability. Oxygenation continued to do well, so patient was placed on a spontaneous breathing trial this morning. Patient was tachypneic, but directable and denied any dyspnea during the trial. General: Alert, Confused, Disoriented, - - Follows commands intermittently, but very restless HEENT: Atraumatic, PERRLA, EOMI, Normocephalic, - - No scleral icterus or injection noted Oral: Moist Mucosa, No Gingival or Mucosal Lesions/ Ulcerations Neck: Supple, No Nodes, Trachea Midline, - - IJ lines are clean, dry and intact Lungs: No rhonchi, No wheeze, No rales, Diminished, - - Symmetric expansion. No dullness to percussion. Cardiovascular: Regular rate, Regular Rhythm, Normal S1, Normal S2, No murmurs, No rub noted, No Gallop Abdomen: Bowel Sounds Present, Soft, Non Tender, Distended - Slightly, Obese Extremities: No clubbing, No cyanosis, Edema - Improved Skin: - - No change compared to previous Musculoskeletal: No Tenderness to Palpation of Joints or Extremities Lymphatic: No Cervical, Supraclavicular, or Inguinal Adenopathy Neurological: - - Follows commands intermittently. Spontaneous movement of all extremities. Sensation intact. Psych/Mental Status: Impulsive, Restless Vital Signs Temp Pulse Resp BP Pulse Ox 37.1 C 70 27 H 167/74 H 98 08/22/19 06:00 08/22/19 06:00 08/22/19 06:00 08/22/19 06:00 08/22/19 06:00 Oxygen Flow Rate (L/min) 40 Oxygen Delivery Method Mechanical Ventilator Weight: 97.1 kg Body Mass Index (BMI) 31.1 Intake and Output for Last 24 Hours 08/20/19 08/21/19 08/22/19 23:59 23:59 23:59 Intake Total 2910.01 / 3528.16 3993.86 / 4050.76 747.37 / 747.37 Output Total 4055 / 4230 4610 / 4610 400 / 400 Balance -1144.99 / -701.84 -616.14 / -559.24 347.37 / 347.37 Labs (Last 48 Hours) 08/19/19 08/20/19 08/20/19 16:30 10:51 11:40 WBC RBC Hgb Hct MCV MCH MCHC RDW Std Deviation RDW Coeff of Nacho Plt Count MPV Neut % (Auto) Absolute Neuts (auto) Absolute Lymphs (auto) Total Counted Neutrophils % (Manual) Band Neutrophils % Lymphocytes % (Manual) Monocytes % (Manual) Eosinophils % (Manual) Metamyelocytes % Myelocytes % Diff Path Review Platelet Estimate RBC Morphology Polychromasia Hypochromasia Macrocytosis APTT 36.7 H Sodium Potassium Chloride Carbon Dioxide Anion Gap BUN Creatinine Estim Creat Clear Calc Est GFR (MDRD) Af Amer Est GFR (MDRD) Non-Af BUN/Creatinine Ratio Glucose Calcium Phosphorus Magnesium Total Creatine Kinase Troponin I Triglycerides Hep B Core Total Ab Pending POC Glucose 138 H 08/20/19 08/20/19 08/20/19 16:30 21:03 21:10 WBC RBC Hgb Hct MCV MCH MCHC RDW Std Deviation RDW Coeff of Nacho Plt Count MPV Neut % (Auto) Absolute Neuts (auto) Absolute Lymphs (auto) Total Counted Neutrophils % (Manual) Band Neutrophils % Lymphocytes % (Manual) Monocytes % (Manual) Eosinophils % (Manual) Metamyelocytes % Myelocytes % Diff Path Review Platelet Estimate RBC Morphology Polychromasia Hypochromasia Macrocytosis APTT 50.8 H Sodium Potassium Chloride Carbon Dioxide Anion Gap BUN Creatinine Estim Creat Clear Calc Est GFR (MDRD) Af Amer Est GFR (MDRD) Non-Af BUN/Creatinine Ratio Glucose Calcium Phosphorus Magnesium Total Creatine Kinase Troponin I Triglycerides Hep B Core Total Ab POC Glucose 140 H 133 H 08/21/19 08/21/19 08/21/19 03:25 03:25 03:25 WBC 7.7 RBC 3.22 L Hgb 11.3 L Hct 33.8 L MCV 105.0 H MCH 35.1 H MCHC 33.4 RDW Std Deviation 61.5 H RDW Coeff of Nacho 16.0 H Plt Count 664 H MPV 9.5 Neut % (Auto) Not Reportable Absolute Neuts (auto) 6.2 Absolute Lymphs (auto) 1.00 Total Counted 100 Neutrophils % (Manual) 81 H Band Neutrophils % Lymphocytes % (Manual) 13 L Monocytes % (Manual) 2 Eosinophils % (Manual) 1 Metamyelocytes % 1 Myelocytes % 2 H Diff Path Review May foll Platelet Estimate MOD INC RBC Morphology N CHROM Polychromasia Hypochromasia Macrocytosis 2+ APTT 57.5 H Sodium 140 Potassium 3.8 Chloride 104 Carbon Dioxide 26.0 Anion Gap 10 BUN 89 H Creatinine 2.00 H Estim Creat Clear Calc 31.43 Est GFR (MDRD) Af Amer 42 L Est GFR (MDRD) Non-Af 35 L BUN/Creatinine Ratio 44.5 H Glucose 141 H Calcium 8.0 L Phosphorus 4.9 Magnesium 3.0 H Total Creatine Kinase Troponin I Triglycerides Hep B Core Total Ab POC Glucose 08/21/19 08/21/19 08/21/19 03:25 03:30 08:36 WBC RBC Hgb Hct MCV MCH MCHC RDW Std Deviation RDW Coeff of Nacho Plt Count MPV Neut % (Auto) Absolute Neuts (auto) Absolute Lymphs (auto) Total Counted Neutrophils % (Manual) Band Neutrophils % Lymphocytes % (Manual) Monocytes % (Manual) Eosinophils % (Manual) Metamyelocytes % Myelocytes % Diff Path Review Platelet Estimate RBC Morphology Polychromasia Hypochromasia Macrocytosis APTT Sodium Potassium Chloride Carbon Dioxide Anion Gap BUN Creatinine Estim Creat Clear Calc Est GFR (MDRD) Af Amer Est GFR (MDRD) Non-Af BUN/Creatinine Ratio Glucose Calcium Phosphorus Magnesium Total Creatine Kinase 63 Troponin I Triglycerides 250 H Hep B Core Total Ab POC Glucose 147 H 155 H 08/21/19 08/21/19 08/21/19 09:50 13:15 15:23 WBC RBC Hgb Hct MCV MCH MCHC RDW Std Deviation RDW Coeff of Nacho Plt Count MPV Neut % (Auto) Absolute Neuts (auto) Absolute Lymphs (auto) Total Counted Neutrophils % (Manual) Band Neutrophils % Lymphocytes % (Manual) Monocytes % (Manual) Eosinophils % (Manual) Metamyelocytes % Myelocytes % Diff Path Review Platelet Estimate RBC Morphology Polychromasia Hypochromasia Macrocytosis APTT 58.0 H Sodium Potassium Chloride Carbon Dioxide Anion Gap BUN Creatinine Estim Creat Clear Calc Est GFR (MDRD) Af Amer Est GFR (MDRD) Non-Af BUN/Creatinine Ratio Glucose Calcium Phosphorus Magnesium Total Creatine Kinase Troponin I 0.037 Triglycerides Hep B Core Total Ab POC Glucose 136 H 08/21/19 08/22/19 08/22/19 20:40 03:09 03:20 WBC RBC Hgb Hct MCV MCH MCHC RDW Std Deviation RDW Coeff of Nacho Plt Count MPV Neut % (Auto) Absolute Neuts (auto) Absolute Lymphs (auto) Total Counted Neutrophils % (Manual) Band Neutrophils % Lymphocytes % (Manual) Monocytes % (Manual) Eosinophils % (Manual) Metamyelocytes % Myelocytes % Diff Path Review Platelet Estimate RBC Morphology Polychromasia Hypochromasia Macrocytosis APTT 58.1 H Sodium Potassium Chloride Carbon Dioxide Anion Gap BUN Creatinine Estim Creat Clear Calc Est GFR (MDRD) Af Amer Est GFR (MDRD) Non-Af BUN/Creatinine Ratio Glucose Calcium Phosphorus Magnesium Total Creatine Kinase Troponin I Triglycerides Hep B Core Total Ab POC Glucose 161 H 168 H 08/22/19 08/22/19 03:20 03:20 WBC 14.6 H RBC 3.57 L Hgb 12.1 L Hct 36.9 L MCV 103.4 H MCH 33.9 H MCHC 32.8 RDW Std Deviation 59.2 H RDW Coeff of Nacho 15.4 H Plt Count 680 H MPV 9.7 Neut % (Auto) Not Reportable Absolute Neuts (auto) 12.1 H Absolute Lymphs (auto) 0.58 L Total Counted 100 Neutrophils % (Manual) 74 H Band Neutrophils % 9 H Lymphocytes % (Manual) 11 L Monocytes % (Manual) 2 Eosinophils % (Manual) Metamyelocytes % 4 H Myelocytes % Diff Path Review May foll Platelet Estimate MOD INC RBC Morphology Polychromasia RARE Hypochromasia RARE Macrocytosis 1+ APTT Sodium 138 Potassium 3.8 Chloride 103 Carbon Dioxide 26.0 Anion Gap 9 BUN 74 H Creatinine 1.57 H Estim Creat Clear Calc 40.04 Est GFR (MDRD) Af Amer 55 L Est GFR (MDRD) Non-Af 46 L BUN/Creatinine Ratio 47.1 H Glucose 163 H Calcium 8.0 L Phosphorus 5.4 H Magnesium 2.7 H Total Creatine Kinase Troponin I Triglycerides Hep B Core Total Ab POC Glucose Microbiology 08/18/19 10:02 Sputum, Induced/Lukens Gram Stain - Final 08/18/19 10:02 Sputum, Induced/Lukens Respiratory Culture - Final Culture exhibits no growth. 08/17/19 16:45 Blood Culture (Wb) - Central Line Blood Culture - Preliminary No growth in 48 hours. Medical Necessity - Tobacco Use Smoking Status: Never smoker Assessment/Plan All Active Problems (Last Reviewed 08/13/19 @ 01:[address] Matt Espinoza MD) Pneumonia (Acute) Hypoxia (Acute) COVID-19 (Acute) SARS-associated coronavirus infection (Acute) LI (acute kidney injury) (Acute) RECOMMENDATIONS: 1. Continue to wean FiO2 and PEEP to maintain oxygen saturations at or above 90%. 2. Continue empiric systemic anticoagulation 3. Defer to nephrology on hemodialysis. Volume removal if possible 4. Continue tube feeds as tolerated. 5. Increase Zyprexa. Continue Precedex 6. Spontaneous breathing and awakening trials per protocol 7. Continue appropriate GI prophylaxis. IMPRESSIONS: 1. Acute hypoxemic respiratory failure secondary to COVID-19 infection The patient did okay over the last 24 hours. Patient has been able to come off of Levophed. Patient tolerating discontinuation of paralytic. Patient currently off of antibiotics and has been afebrile for 48 hours. Oxygenation status appears to be stabilizing/improving with hemodialysis. Patient has been afebrile for the first time since admission. We will continue with propofol and fentanyl. Unfortunately, Seroquel had to be discontinued secondary to QT prolongation. Zyprexa was increased secondary to agitation. ABG at the end of the spontaneous breathing trial shows patient was appropriately tachypneic, not just agitated as he had compensated hypercarbic respiratory failure. Patient will be placed back on settings. Clinical suspicion for fever secondary to Precedex therapy. 2. Acute kidney injury Creatinine is improving, but patient has received hemodialysis 3 times thus far. Likely related to ATN in the setting of #1, along with hemodynamic instability which was generated as a consequence of sedative utilization. Low- dose Levophed has been utilized to stabilize hemodynamics with dialysis. Patient responded well to dialysis yesterday. Urine output does appear to be improving. Defer to nephrology on timing of hemodialysis 3. Troponin elevation Minimal troponin elevation. Echocardiogram shows preserved ejection fraction. We will hold off on cardiology evaluation at this time. Clinical suspicion for supply demand mismatch leading to elevated troponins. Patient could be evaluated for coronary artery disease as an outpatient. Continue telemetry. 4. Unspecified seizure disorder/hypothyroidism/hypertension/obesity Complicates care, management, recovery and prognosis. Continue home medications as indicated. TIME: 40 minutes of critical care time, independent of procedures, was spent addressing the patient's acute hypoxemic respiratory failure secondary to COVID- 19 infection, acute kidney injury, review of all data and collaboration with the care team. (6:45 AM to 7:55 AM) [id number]: [id number] Critical care first hour
[2019-08-22 07:55] LABS: Base Excess 1 mmol/L (-2 to +2); Bicarbonate 26.8 mmol/L (22-26); PO2 76 mmHG (75-100); SO2 94 % (95-99); Total Carbon Dioxide 28 mmol/L; pH 7.35 (7.35-7.45)
[2019-08-22 07:58] LABS: Allen Test POS; Blood Gas Specimen Type ART; Mode CPAP PS; SITE L RADIAL
[2019-08-22 07:59] LABS: FI02 35; O2 Delivery Device Vent; PEEP 5; PS 5
[2019-08-22] MEDS: Chlorhexidine 15 ML PO ×2 (09:05→21:11)
[2019-08-22] MEDS: Phenytoin Na 100 MG/4 ML UDC 200 MG GT (09:05)
[2019-08-22] MEDS: OLANZapine 2.5 MG Tablet 5 MG GT ×2 (09:05→21:10)
[2019-08-22] MEDS: Aspirin 81 MG TAB.CHEW GT (09:05)
--- NOTE | 2019-08-22 10:16 | PCM.PN.HOSP ---
Patient Problems: Active and Suspected Problems (Last Reviewed 08/13/19 @ 01:[address] Matt Espinoza MD) Pneumonia (Acute) Hypoxia (Acute) COVID-19 (Acute) SARS-associated coronavirus infection (Acute) LI (acute kidney injury) (Acute) Reason for Visit: COVID-19 Subjective: Agitated. Able to follow some commands. Vitals/I&O's: Vital Signs Temp Pulse Resp BP Pulse Ox 37.1 C 48 L 19 H 158/67 H 98 08/22/19 06:00 08/22/19 09:12 08/22/19 09:12 08/22/19 07:00 08/22/19 09:12 Oxygen Flow Rate (L/min) 40 Oxygen Delivery Method Mechanical Ventilator Weight: 97.1 kg Body Mass Index (BMI) 31.1 Intake and Output for Last 24 Hours 08/20/19 08/21/19 08/22/19 23:59 23:59 23:59 Intake Total 2910.01 / 3528.16 3993.86 / 4050.76 842.37 / 842.37 Output Total 4055 / 4230 4610 / 4610 400 / 400 Balance -1144.99 / -701.84 -616.14 / -559.24 442.37 / 442.37 General: - - awake. follows commands. shakes head when asked if he is having any pain. HEENT: - - eyes open. did not see patient blink during my encounter. did not track myself nor the therapist while we were in the room. was able to turn his eyes on command. Oral: - - ETT, OG in place Neck: No Nodes, Thyroid Normal Size and Texture Lungs: - - coarse breath sounds anteriorly Cardiovascular: Regular rate, Regular Rhythm, Normal S1, Normal S2, No murmurs Abdomen: Bowel Sounds Present, Soft, Non Tender, Non-Distended, No Hepato-splenomegaly, - - FMS in place with light brown stool Extremities: No Calf Tenderness, Edema Skin: No rashes, No breakdown Musculoskeletal: No Tenderness to Palpation of Joints or Extremities, No Muscle Wasting Neurological: - - no clonus. diminished reflexes in LE.follows some commands Microbiology Past 72 Hours 08/18/19 10:02 Sputum, Induced/Lukens Gram Stain - Final 08/18/19 10:02 Sputum, Induced/Lukens Respiratory Culture - Final Culture exhibits no growth. 08/17/19 16:45 Blood Culture (Wb) - Central Line Blood Culture - Preliminary No growth in 48 hours. 08/17/19 11:50 Blood Culture (Wb) - Right Hand Blood Culture - Preliminary No growth in 48 hours. Laboratory Results 08/21/19 09:50: APTT 58.0 H 08/21/19 13:15: Troponin I 0.037 08/21/19 15:23: POC Glucose 136 H 08/21/19 20:40: POC Glucose 161 H 08/22/19 03:09: POC Glucose 168 H 08/22/19 03:20: APTT 58.1 H 08/22/19 03:20: WBC 14.6 H, RBC 3.57 L, Hgb 12.1 L, Hct 36.9 L, MCV 103.4 H, MCH 33.9 H, MCHC 32.8, RDW Std Deviation 59.2 H, RDW Coeff of Nacho 15.4 H, Plt Count 680 H, MPV 9.7, Neut % (Auto) Not Reportable, Absolute Neuts (auto) 12.1 H, Absolute Lymphs (auto) 0.58 L, Total Counted 100, Neutrophils % (Manual) 74 H, Band Neutrophils % 9 H, Lymphocytes % (Manual) 11 L, Monocytes % (Manual) 2, Metamyelocytes % 4 H, Diff Path Review May foll, Platelet Estimate MOD INC, Polychromasia RARE, Hypochromasia RARE, Macrocytosis 1+ 08/22/19 03:20: Sodium 138, Potassium 3.8, Chloride 103, Carbon Dioxide 26.0, Anion Gap 9, BUN 74 H, Creatinine 1.57 H, Estim Creat Clear Calc 40.04, Est GFR (MDRD) Af Amer 55 L, Est GFR (MDRD) Non-Af 46 L, BUN/Creatinine Ratio 47.1 H, Glucose 163 H, Calcium 8.0 L, Phosphorus 5.4 H, Magnesium 2.7 H 08/22/19 07:17: Specimen Type ART, Sample Site L RADIAL, pH 7.35, Bicarbonate Actual 26.8 H, POC Total CO2 28, Base Excess 1, O2 Saturation 94 L, O2 % 35, ABG pCO2 49.0 H, ABG pO2 76, Oziel Test POS, O2 Delivery Device Vent, Vent Mode CPAP PS, POC PEEP 5, POC Pressure Suppt 5, Blood Gas Notified Whom ICU MD Current Medications Acetaminophen (Tylenol Liquid) 650 mg GT Q4H PRN PRN PRN Reason: Pain Score 1-10/Temp > 100.7 F Last Admin: 08/19/19 05:02 Dose: 650 mg Documented by: Aspirin (Aspirin, Baby) 81 mg GT DAILY@1000 LEONARD Last Admin: 08/21/19 08:10 Dose: 81 mg Documented by: Chlorhexidine Gluconate () 15 ml PO BID [facility] Last Admin: 08/21/19 20:44 Dose: 15 ml Documented by: Dextrose (D50w Syringe) 0 gm IV X1 PRN; Protocol PRN Reason: Hypoglycemia Glucagon () 1 mg IM .X1 PRN PRN Reason: Hypoglycemia Guaifenesin (Robitussin) 10 ml GT 1000,1600,2200,0400 [facility] Last Admin: 08/22/19 03:14 Dose: 10 ml Documented by: Heparin Sodium (Porcine) (Heparin Na) 0 unit IV UD PRN; Protocol Last Admin: 08/20/19 21:45 Dose: 1,000 unit Documented by: Sodium Chloride () 250 mls @ 15 mls/hr IV .[id number] PRN PRN Reason: Saline Flush Sodium Chloride () 250 mls @ 15 mls/hr IV .[id number] PRN PRN Reason: Additional IVPB Infusion Fentanyl () 100 mls @ 5 mls/hr IV UD [facility]; Protocol Last Admin: 08/22/19 08:24 Dose: 200 mcg/hr, 20 mls/hr Documented by: Enteral Nutritional Formula (Vital Af 1.2 Emanuel Liquid) 1,000 mls @ 65 mls/hr GT .[id number] [facility] Last Admin: 08/22/19 00:02 Dose: Not Given Documented by: Heparin Sodium/Dextrose () 25,000 units in 250 mls @ 14 mls/hr IV .[id number] [facility]; Protocol Last Admin: 08/22/19 05:18 Dose: 2,100 units/hr, 21 mls/hr Documented by: Dexmedetomidine HCl 1,000 mcg/ (Sodium Chloride) 250 mls @ 36.413 mls/hr CONT INF .[id number] [facility]; Protocol Last Titration: 08/22/19 07:00 Dose: 1.5 mcg/kg/hr, 36.4 mls/hr Documented by: Insulin Human Lispro (Humalog Kwemileepen (Bkc)) 0 unit SC 1000,1600,2200,0400 [facility]; Protocol Last Admin: 08/22/19 03:14 Dose: 1 u Documented by: Lansoprazole (Lansoprazole) 15 mg GT BID [facility] Last Admin: 08/21/19 20:46 Dose: 15 mg Documented by: Levothyroxine Sodium (Synthroid) 100 mcg GT DAILY [facility] Last Admin: 08/21/19 08:10 Dose: 100 mcg Documented by: Olanzapine (Zyprexa) 5 mg GT BID [facility] Ondansetron HCl (Zofran) 4 mg IV Q8H PRN PRN PRN Reason: NAUSEA/VOMITING Phenytoin Sodium (Dilantin) 200 mg GT DAILY [facility] Last Admin: 08/21/19 08:10 Dose: 200 mg Documented by: Sodium Chloride () 10 - 40 ml IV UD PRN PRN Reason: SALINE FLUSH Last Admin: 08/21/19 03:23 Dose: 40 ml Documented by: STROKE Vital Signs/Narrative: Vital Signs Pulse Resp BP Pulse Ox 08/22/19 09:12 48 L 19 H 98 08/22/19 08:02 49 L 08/22/19 07:15 51 L 28 H 96 08/22/19 07:00 54 L 24 H 158/67 H 97 Medical Necessity - Tobacco Use Smoking Status: Never smoker Assessment/Plan All Active Problems (Last Reviewed 08/13/19 @ 01:[address] Matt Espinoza MD) Pneumonia (Acute) Hypoxia (Acute) COVID-19 (Acute) SARS-associated coronavirus infection (Acute) LI (acute kidney injury) (Acute) 1. acute hypoxic respiratory failure still on vent, FiO2 35%, did not tolerate SBT today 2/2 COVID +/- PNA +/- ALI completed pip/tazo on 08/16. 2. COVID-19 received convalescent plasma on 08/12 ID following 3. NSTEMI: troponins peaked at 1.89 suspect demand ischemia echo shows EF 65%. on LMWH and ASA consider cardiology consultation depending on clinical course 4. LI non-oliguric nephrology consult had dialysis on 08/18, and 5. Agitation: complicates care on dexmetomidine, fentanyl gtt on olanzapine 6. VTE proph: anticoagulated. Inpatient E&M: [id number] Subs Hosp L3
[2019-08-22] MEDS: Dexmedetomidine 1,000 mcg in 0.9% NS 240 mL 36.4 MCG CONT INF ×3 (10:59→23:45)
[2019-08-22] MEDS: Lansoprazole 15 MG Capsule.DR GT ×2 (11:03→21:10)
[2019-08-22] MEDS: Levothyroxine 100 MCG Tablet GT (11:04)
[2019-08-22 12:36] LABS: Bedside Glucose 145 mg/dL (70-110)
[2019-08-22 15:36] LABS: Bedside Glucose 157 mg/dL (70-110)
[2019-08-22 23:51] LABS: Bedside Glucose 130 mg/dL (70-110)
[2019-08-23] VITALS (38 sets, daily range): BP systolic 109–165; BP diastolic 50–72; PULSE 43–59; RESP 8–100; TEMP 36.4–37.4; O2SAT 95–100
[2019-08-23 00:18] LABS: Hepatitis B Core Ab Total Negative (Negative)
[2019-08-23] MEDS: Insulin Lispro 100 UNIT/ML INSULN.PEN SC (03:20)
[2019-08-23] MEDS: guaiFENesin 10 ML UDC (200MG/10ML) GT ×4 (03:20→20:09)
[2019-08-23] MEDS: HEPARIN/D5w 25,000 UNITS 25,000 UNITS/250 ML IV.SOLN. 21 UNITS IV ×2 (03:20→13:46)
[2019-08-23] MEDS: 0.9% Saline Lock 10 ML Syringe IV (03:22)
[2019-08-23 03:38] LABS: Hematocrit 36.7 % (40-54); Mean Corp Hgb Conc 32.7 g/dL (32-36); Mean Corpuscular Hgb 33.8 pg (27.0-32.0); Mean Corpuscular Volume 103.4 fL (80-94); Mean Platelet Vol. 9.8 fl (6.2-12.0); POSITIVE COUNT YES; POSITIVE MORPHOLOGY YES; Platelet Count 581 K/mm3 (150-450); RBC Distribution Width SD 57.1 fl (35.1-43.9); Red Blood Count 3.55 M/mm3 (4.6-6.2)
[2019-08-23 03:47] LABS: Anion Gap 9 (5-15); BUN 77 mg/dL (7-18); BUN/Creat Ratio 64.2 RATIO (10-20); Calcium,Total 8.2 mg/dL (8.5-10.1); Chloride 107 mmol/L (98-107); EST Glomerular Filtration Rate 62 mL/min (>60); Est Glom Filt Rate - Afr Amer 75 mL/min (>60); Estimated Creatinine Clearance 52.38 ml/min; Glucose 166 mg/dL (74-106); Magnesium 2.4 mg/dL (1.6-2.6); Phosphorus 4.3 mg/dL (2.5-4.9); Potassium 3.7 mmol/L (3.5-5.1); Sodium Level 142 mmol/L (136-145)
[2019-08-23 04:01] LABS: Differential Indicated MANUAL DIFF
[2019-08-23 04:20] LABS: Partial Thromboplast Time 70.6 Seconds (24.1-36.2)
[2019-08-23 04:32] LABS: Absolute Neutrophil Count 11.9 X10^3/uL (2.0-7.7); Lymphocyte 10 % (19-41); Metamyelocyte 1 % (0-1); Monocyte 5 % (0-10); Neutrophil-Band 5 % (0-5); Neutrophil-Segmented 80 % (47-70); Total Cells Counted 100 (MANUAL DIFF)
[2019-08-23] MEDS: fentaNYL drip 100 ML 20 MCG IV ×4 (04:40→20:40)
[2019-08-23 05:51] LABS: Bedside Glucose 162 mg/dL (70-110)
--- NOTE | 2019-08-23 06:12 | PN_ITS ---
Subjective: The patient was seen and examined at the bedside this morning. Events from the last 24 hours have been reviewed. The patient is currently afebrile, hemodynamically stable and maintaining appropriate oxygen saturations on assist control mode mechanical ventilation with an FiO2 requirement of 35%. The patient failed his spontaneous breathing trial this morning after he developed significant tachypnea. The patient is currently documented to be overall net +10.3 L for the hospital admission. The patient last received dialysis on August 20. He remains sedated on Precedex, fentanyl and Zyprexa. No significant endotracheal secretions were noted. The patient has been tolerating tube feeds. Objective: The patient's most recent lab work, culture data and imaging studies have all been personally reviewed. CTA chest revealed suboptimal opacification of the bilateral pulmonary arteries. No significant PE was identified. However, bilateral groundglass changes were present, most pronounced in the right lower lobe. Coronavirus PCR was positive on August 06. Respiratory viral panel was negative. Strep and urine Legionella antigens were negative. General: Alert, Confused, - - Will follow some simple commands. HEENT: Atraumatic, PERRLA, Normocephalic Oral: No Gingival or Mucosal Lesions/ Ulcerations, - - Endotracheal and OG tubes remain in place Neck: Supple, No Nodes, Trachea Midline, - - Stable bilateral central venous catheters. Lungs: Diminished, Tachypneic Cardiovascular: Normal S1, Normal S2, No murmurs, Bradycardic Abdomen: Bowel Sounds Present, Soft, Non Tender, Obese Extremities: No clubbing, No cyanosis, Edema Skin: No breakdown Musculoskeletal: No Muscle Wasting Lymphatic: No Cervical, Supraclavicular, or Inguinal Adenopathy Neurological: - - No focal neurological deficits. Moves extremities spontaneously. Psych/Mental Status: - - Intermittently agitated and restless. Vital Signs Temp Pulse Resp BP Pulse Ox 98.9 F 53 L 26 H 137/68 H 99 08/23/19 06:00 08/23/19 06:00 08/23/19 06:08/23/19 06:08/23/19 06:00 Oxygen Flow Rate (L/min) 40 Oxygen Delivery Method Mechanical Ventilator Weight: 214 lb 4.629 oz Body Mass Index (BMI) 31.1 Intake and Output for Last 24 Hours 05/30/20 05/31/20 06/01/20 23:59 23:59 23:59 Intake Total 3993.86 / 4050.76 3306.42 / 3332.52 996.82 / 996.82 Output Total 4610 / 4610 2125 / 2125 700 / 700 Balance -616.14 / -559.24 1181.42 / 1207.52 296.82 / 296.82 Labs (Last 48 Hours) 08/19/19 08/21/19 08/21/19 16:30 08:36 09:50 WBC RBC Hgb Hct MCV MCH MCHC RDW Std Deviation RDW Coeff of Nacho Plt Count MPV Neut % (Auto) Absolute Neuts (auto) Absolute Lymphs (auto) Total Counted Neutrophils % (Manual) Band Neutrophils % Lymphocytes % (Manual) Monocytes % (Manual) Metamyelocytes % Diff Path Review Platelet Estimate Polychromasia Hypochromasia Macrocytosis APTT 58.0 H Specimen Type Sample Site pH Bicarbonate Actual POC Total CO2 Base Excess O2 Saturation O2 % ABG pCO2 ABG pO2 Oziel Test O2 Delivery Device Vent Mode POC PEEP POC Pressure Suppt Blood Gas Notified Whom Sodium Potassium Chloride Carbon Dioxide Anion Gap BUN Creatinine Estim Creat Clear Calc Est GFR (MDRD) Af Amer Est GFR (MDRD) Non-Af BUN/Creatinine Ratio Glucose Calcium Phosphorus Magnesium Troponin I Hep B Core Total Ab Negative POC Glucose 155 H 08/21/19 08/21/19 08/21/19 13:15 15:23 20:40 WBC RBC Hgb Hct MCV MCH MCHC RDW Std Deviation RDW Coeff of Nacho Plt Count MPV Neut % (Auto) Absolute Neuts (auto) Absolute Lymphs (auto) Total Counted Neutrophils % (Manual) Band Neutrophils % Lymphocytes % (Manual) Monocytes % (Manual) Metamyelocytes % Diff Path Review Platelet Estimate Polychromasia Hypochromasia Macrocytosis APTT Specimen Type Sample Site pH Bicarbonate Actual POC Total CO2 Base Excess O2 Saturation O2 % ABG pCO2 ABG pO2 Oziel Test O2 Delivery Device Vent Mode POC PEEP POC Pressure Suppt Blood Gas Notified Whom Sodium Potassium Chloride Carbon Dioxide Anion Gap BUN Creatinine Estim Creat Clear Calc Est GFR (MDRD) Af Amer Est GFR (MDRD) Non-Af BUN/Creatinine Ratio Glucose Calcium Phosphorus Magnesium Troponin I 0.037 Hep B Core Total Ab POC Glucose 136 H 161 H 08/22/19 08/22/19 08/22/19 03:09 03:20 03:20 WBC 14.6 H RBC 3.57 L Hgb 12.1 L Hct 36.9 L MCV 103.4 H MCH 33.9 H MCHC 32.8 RDW Std Deviation 59.2 H RDW Coeff of Nacho 15.4 H Plt Count 680 H MPV 9.7 Neut % (Auto) Not Reportable Absolute Neuts (auto) 12.1 H Absolute Lymphs (auto) 0.58 L Total Counted 100 Neutrophils % (Manual) 74 H Band Neutrophils % 9 H Lymphocytes % (Manual) 11 L Monocytes % (Manual) 2 Metamyelocytes % 4 H Diff Path Review May foll Platelet Estimate MOD INC Polychromasia RARE Hypochromasia RARE Macrocytosis 1+ APTT 58.1 H Specimen Type Sample Site pH Bicarbonate Actual POC Total CO2 Base Excess O2 Saturation O2 % ABG pCO2 ABG pO2 Oziel Test O2 Delivery Device Vent Mode POC PEEP POC Pressure Suppt Blood Gas Notified Whom Sodium Potassium Chloride Carbon Dioxide Anion Gap BUN Creatinine Estim Creat Clear Calc Est GFR (MDRD) Af Amer Est GFR (MDRD) Non-Af BUN/Creatinine Ratio Glucose Calcium Phosphorus Magnesium Troponin I Hep B Core Total Ab POC Glucose 168 H 08/22/19 08/22/19 08/22/19 03:20 07:17 12:22 WBC RBC Hgb Hct MCV MCH MCHC RDW Std Deviation RDW Coeff of Nacho Plt Count MPV Neut % (Auto) Absolute Neuts (auto) Absolute Lymphs (auto) Total Counted Neutrophils % (Manual) Band Neutrophils % Lymphocytes % (Manual) Monocytes % (Manual) Metamyelocytes % Diff Path Review Platelet Estimate Polychromasia Hypochromasia Macrocytosis APTT Specimen Type ART Sample Site L RADIAL pH 7.35 Bicarbonate Actual 26.8 H POC Total CO2 28 Base Excess 1 O2 Saturation 94 L O2 % 35 ABG pCO2 49.0 H ABG pO2 76 Oziel Test POS O2 Delivery Device Vent Vent Mode CPAP PS POC PEEP 5 POC Pressure Suppt 5 Blood Gas Notified Whom ICU Sodium 138 Potassium 3.8 Chloride 103 Carbon Dioxide 26.0 Anion Gap 9 BUN 74 H Creatinine 1.57 H Estim Creat Clear Calc 40.04 Est GFR (MDRD) Af Amer 55 L Est GFR (MDRD) Non-Af 46 L BUN/Creatinine Ratio 47.1 H Glucose 163 H Calcium 8.0 L Phosphorus 5.4 H Magnesium 2.7 H Troponin I Hep B Core Total Ab POC Glucose 145 H 08/22/19 08/22/19 08/23/19 15:28 21:05 03:18 WBC RBC Hgb Hct MCV MCH MCHC RDW Std Deviation RDW Coeff of Nacho Plt Count MPV Neut % (Auto) Absolute Neuts (auto) Absolute Lymphs (auto) Total Counted Neutrophils % (Manual) Band Neutrophils % Lymphocytes % (Manual) Monocytes % (Manual) Metamyelocytes % Diff Path Review Platelet Estimate Polychromasia Hypochromasia Macrocytosis APTT Specimen Type Sample Site pH Bicarbonate Actual POC Total CO2 Base Excess O2 Saturation O2 % ABG pCO2 ABG pO2 Oziel Test O2 Delivery Device Vent Mode POC PEEP POC Pressure Suppt Blood Gas Notified Whom Sodium Potassium Chloride Carbon Dioxide Anion Gap BUN Creatinine Estim Creat Clear Calc Est GFR (MDRD) Af Amer Est GFR (MDRD) Non-Af BUN/Creatinine Ratio Glucose Calcium Phosphorus Magnesium Troponin I Hep B Core Total Ab POC Glucose 157 H 130 H 162 H 08/23/19 08/23/19 08/23/19 03:25 03:25 03:25 WBC 14.0 H RBC 3.55 L Hgb 12.0 L Hct 36.7 L MCV 103.4 H MCH 33.8 H MCHC 32.7 RDW Std Deviation 57.1 H RDW Coeff of Nacho 15.0 H Plt Count 581 H MPV 9.8 Neut % (Auto) Not Reportable Absolute Neuts (auto) 11.9 H Absolute Lymphs (auto) 1.40 Total Counted 100 Neutrophils % (Manual) 80 H Band Neutrophils % 5 Lymphocytes % (Manual) 10 L Monocytes % (Manual) 5 Metamyelocytes % 1 Diff Path Review May foll Platelet Estimate Polychromasia Hypochromasia Macrocytosis APTT 70.6 H Specimen Type Sample Site pH Bicarbonate Actual POC Total CO2 Base Excess O2 Saturation O2 % ABG pCO2 ABG pO2 Oziel Test O2 Delivery Device Vent Mode POC PEEP POC Pressure Suppt Blood Gas Notified Whom Sodium 142 Potassium 3.7 Chloride 107 Carbon Dioxide 26.0 Anion Gap 9 BUN 77 H Creatinine 1.20 Estim Creat Clear Calc 52.38 Est GFR (MDRD) Af Amer 75 Est GFR (MDRD) Non-Af 62 BUN/Creatinine Ratio 64.2 H Glucose 166 H Calcium 8.2 L Phosphorus 4.3 Magnesium 2.4 Troponin I Hep B Core Total Ab POC Glucose Microbiology 08/17/19 11:50 Blood Culture (Wb) - Right Hand Blood Culture - Final No growth in 5 days. 08/18/19 10:02 Sputum, Induced/Lukens Gram Stain - Final 08/18/19 10:02 Sputum, Induced/Lukens Respiratory Culture - Final Culture exhibits no growth. Clinical Impression(s) from Imaging Studies Chest X-Ray 08/12/19 22:50 IMPRESSION: Worsening of bilateral pulmonary infiltrates consistent with nonspecific multifocal pneumonia. Electronically Signed: Eriberto Smalls MD at 23:13 EDT , Service support , Chest X-Ray 08/14/19 05:20 IMPRESSION: 1. Suggest advancing endotracheal tube approximately 2 or 3 cm. 2. Unchanged appearance to bilateral multifocal airspace disease consistent with pneumonia. Electronically Signed: Shamika Mistry MD at 8:34 EDT , Service support , Chest X-Ray 08/14/19 07:54 IMPRESSION: 1. Appropriate positioning of endotracheal and enteric tubes. 2. Extensive bilateral heterogeneous airspace consolidations consistent with multifocal pneumonia. There appears to be increasing left basilar airspace consolidation since previous radiograph. Electronically Signed: Shamika Mistry MD at 9:58 EDT , Service support , Chest X-Ray 08/17/19 13:00 IMPRESSION: 1. Left central venous catheter is in the superior vena cava. No pneumothorax. 2. Endotracheal and nasogastric tubes unchanged. 3. Improved aeration at the lung bases. The bilateral infiltrates are otherwise stable. Electronically Signed: Alfonzo Lucero MD at 13:28 EDT , Service support , Chest X-Ray 08/19/19 13:25 IMPRESSION: Progressive bilateral infiltrates. The tip of the right dialysis catheter is at the junction of superior vena cava and right atrium. Electronically Signed: Abdulaziz Romero, at 13:53 EDT , Service support , Medical Necessity - Tobacco Use Smoking Status: Never smoker Assessment/Plan All Active Problems (Last Reviewed 08/13/19 @ 01:[address] Matt Espinoza MD) Pneumonia (Acute) Hypoxia (Acute) COVID-19 (Acute) SARS-associated coronavirus infection (Acute) LI (acute kidney injury) (Acute) RECOMMENDATIONS: 1. Continue Precedex, fentanyl and Zyprexa as ordered. 2. Continue to wean FiO2 to maintain oxygen saturations at or above 90%. 3. Continue tube feeds as ordered. 4. Continue systemic anticoagulation with heparin infusion. 5. Continue twice daily PPI therapy. 6. Additional volume optimization with ultrafiltration per nephrology recommendations. Consider adding IV Lasix today. 7. Obtain repeat plain film chest x-ray. IMPRESSIONS: 1. Acute hypoxemic respiratory failure secondary to COVID-19 infection The patient was evaluated in the emergency department on August 06 with a CTA chest which revealed bilateral groundglass changes. Subsequent COVID testing was positive. Although the patient was initially discharged home, he experienced worsening shortness of breath and hypoxemia, which prompted his hospital admission. Repeat chest imaging did reveal progressive bilateral infiltrates. The patient was initially placed on noninvasive positive pressure ventilatory support but decompensated eventually requiring intubation. The patient did receive convalescent plasma ([place] [id number]) on the evening of August 12. The patient has completed a course of Zosyn under the discretion of infectious diseases. Plan to continue to wean FiO2 to maintain oxygen saturations at or above 90%. 2. Acute kidney injury Likely related to ATN in the setting of #1, along with hemodynamic instability which was generated as a consequence of sedative utilization. Renal function appears to be stabilizing with hemodialysis support. Continue attempts at volume optimization with ultrafiltration per nephrology recommendations. 3. Unspecified seizure disorder/hypothyroidism/hypertension/obesity Complicates care, management, recovery and prognosis. Continue home medications as indicated. TIME: 40 minutes of critical care time, independent of procedures, was spent addressing the patient's acute hypoxemic respiratory failure secondary to COVID- 19 infection, acute kidney injury, troponin elevation, review of all data and collaboration with the care team. [id number]) [id number] Critical care first hour
[2019-08-23] MEDS: Dexmedetomidine 1,000 mcg in 0.9% NS 240 mL 36.4 MCG CONT INF (06:42)
[2019-08-23] MEDS: OLANZapine 2.5 MG Tablet 5 MG GT ×2 (08:25→20:09)
[2019-08-23] MEDS: Phenytoin Na 100 MG/4 ML UDC 200 MG GT (08:26)
[2019-08-23] MEDS: Aspirin 81 MG TAB.CHEW GT (08:28)
[2019-08-23] MEDS: Lansoprazole 15 MG Capsule.DR GT ×2 (08:28→20:09)
[2019-08-23] MEDS: Levothyroxine 100 MCG Tablet GT (08:28)
[2019-08-23] MEDS: Chlorhexidine 15 ML PO ×2 (08:33→20:11)
[2019-08-23 09:05] LABS: Bedside Glucose 146 mg/dL (70-110)
--- NOTE | 2019-08-23 09:10 | PCM.PN.HOSP ---
Patient Problems: Active and Suspected Problems (Last Reviewed 08/13/19 @ 01:[address] Matt Espinoza MD) Pneumonia (Acute) Hypoxia (Acute) COVID-19 (Acute) SARS-associated coronavirus infection (Acute) LI (acute kidney injury) (Acute) Reason for Visit: follow up for Covid 19 infection Subjective: Patient seen and examined this morning. Patient has been managed for acute respiratory due to COVID-19 infection. Patient feels spontaneous breathing trial this morning as he became tachypneic. He remains intubated and sedated on fentanyl and Precedex. During this admission, he has received dialysis with last dialysis being August 21, 2019. He is currently on tube feeding and on heparin drip. Labs and vitals reviewed. He is tachypneic with a respiratory of 26. Pulse rate is down to 55. Chemistry is unremarkable and CBC shows WBC of 14 with hemoglobin of 12 and platelets of 581. Blood cultures have been negative and urine for strep and Legionella were also negative. Repeat blood cultures were again negative respiratory Gram stain and culture also negative. Vitals/I&O's: Vital Signs Temp Pulse Resp BP Pulse Ox 98.9 F 55 L 26 H 137/68 H 100 08/23/19 06:00 08/23/19 07:31 08/23/19 07:31 08/23/19 06:00 08/23/19 07:31 Oxygen Flow Rate (L/min) 40 Oxygen Delivery Method Mechanical Ventilator Weight: 214 lb 4.629 oz Body Mass Index (BMI) 31.1 Intake and Output for Last 24 Hours 08/21/19 08/22/19 08/23/19 23:59 23:59 23:59 Intake Total 3993.86 / 4050.76 3306.42 / 3332.52 1055.72 / 1055.72 Output Total 4610 / 4610 2125 / 2125 700 / 700 Balance -616.14 / -559.24 1181.42 / 1207.52 355.72 / 355.72 General: - - intubated, sedated, RASS score is +1 HEENT: Atraumatic, PERRLA, EOMI, Normocephalic Oral: Moist Mucosa Neck: Supple, No JVD, Negative Carotid Bruits Lungs: - - diminished breath sounds bibasally, no wheezes or crackles. Intubated Cardiovascular: Normal S1, Normal S2, No murmurs, Bradycardic Abdomen: Bowel Sounds Present, Soft, Non Tender Extremities: No clubbing, No cyanosis, No edema, Capillary Refill Less than 3 Seconds Skin: No rashes, No breakdown Musculoskeletal: No Tenderness to Palpation of Joints or Extremities Lymphatic: No Cervical, Supraclavicular, or Inguinal Adenopathy Neurological: Cranial nerves II-XII grossly intact, - - intubated, sedated. Microbiology Past 72 Hours 08/17/19 16:45 Blood Culture (Wb) - Central Line Blood Culture - Final No growth in 5 days. 08/17/19 11:50 Blood Culture (Wb) - Right Hand Blood Culture - Final No growth in 5 days. 08/18/19 10:02 Sputum, Induced/Lukens Gram Stain - Final 08/18/19 10:02 Sputum, Induced/Lukens Respiratory Culture - Final Culture exhibits no growth. Laboratory Results 08/19/19 16:30: Hep B Core Total Ab Negative 08/22/19 12:22: POC Glucose 145 H 08/22/19 15:28: POC Glucose 157 H 08/22/19 21:05: POC Glucose 130 H 08/23/19 03:18: POC Glucose 162 H 08/23/19 03:25: APTT 70.6 H 08/23/19 03:25: WBC 14.0 H, RBC 3.55 L, Hgb 12.0 L, Hct 36.7 L, MCV 103.4 H, MCH 33.8 H, MCHC 32.7, RDW Std Deviation 57.1 H, RDW Coeff of Nacho 15.0 H, Plt Count 581 H, MPV 9.8, Neut % (Auto) Not Reportable, Absolute Neuts (auto) 11.9 H, Absolute Lymphs (auto) 1.40, Total Counted 100, Neutrophils % (Manual) 80 H, Band Neutrophils % 5, Lymphocytes % (Manual) 10 L, Monocytes % (Manual) 5, Metamyelocytes % 1, Diff Path Review July08/23/19 03:25: Sodium 142, Potassium 3.7, Chloride 107, Carbon Dioxide 26.0, Anion Gap 9, BUN 77 H, Creatinine 1.20, Estim Creat Clear Calc 52.38, Est GFR (MDRD) Af Amer 75, Est GFR (MDRD) Non-Af 62, BUN/Creatinine Ratio 64.2 H, Glucose 166 H, Calcium 8.2 L, Phosphorus 4.3, Magnesium 2.4 08/23/19 08:33: POC Glucose 146 H Diagnostic Data Chest X-Ray 08/19/19 13:25 IMPRESSION: Progressive bilateral infiltrates. The tip of the right dialysis catheter is at the junction of superior vena cava and right atrium. Electronically Signed: Abdulaziz Nick, at 13:53 EDT , Service support , Current Medications Acetaminophen (Tylenol Liquid) 650 mg GT Q4H PRN PRN PRN Reason: Pain Score 1-10/Temp > 100.7 F Last Admin: 08/19/19 05:02 Dose: 650 mg Documented by: Aspirin (Aspirin, Baby) 81 mg GT DAILY@1000 [facility] Last Admin: 08/23/19 08:28 Dose: 81 mg Documented by: Chlorhexidine Gluconate () 15 ml PO BID [facility] Last Admin: 08/23/19 08:33 Dose: 15 ml Documented by: Dextrose (D50w Syringe) 0 gm IV X1 PRN; Protocol PRN Reason: Hypoglycemia Glucagon () 1 mg IM .X1 PRN PRN Reason: Hypoglycemia Guaifenesin (Robitussin) 10 ml GT 1000,1600,2200,0400 [facility] Last Admin: 08/23/19 08:30 Dose: 10 ml Documented by: Heparin Sodium (Porcine) (Heparin Na) 0 unit IV UD PRN; Protocol Last Admin: 08/20/19 21:45 Dose: 1,000 unit Documented by: Sodium Chloride () 250 mls @ 15 mls/hr IV .[id number] PRN PRN Reason: Saline Flush Sodium Chloride () 250 mls @ 15 mls/hr IV .[id number] PRN PRN Reason: Additional IVPB Infusion Fentanyl () 100 mls @ 5 mls/hr IV UD [facility]; Protocol Last Titration: 08/23/19 05:00 Dose: 200 mcg/hr, 20 mls/hr Documented by: Enteral Nutritional Formula (Vital Af 1.2 Emanuel Liquid) 1,000 mls @ 65 mls/hr GT .[id number] [facility] Last Admin: 08/22/19 19:13 Dose: Not Given Documented by: Heparin Sodium/Dextrose () 25,000 units in 250 mls @ 14 mls/hr IV .[id number] [facility]; Protocol Last Titration: 08/23/19 04:23 Dose: 2,100 units/hr, 21 mls/hr Documented by: Dexmedetomidine HCl 1,000 mcg/ (Sodium Chloride) 250 mls @ 36.45 mls/hr CONT INF .[id number] [facility]; Protocol Last Admin: 08/23/19 06:42 Dose: 1.5 mcg/kg/hr, 36.4 mls/hr Documented by: Insulin Human Lispro (Humalog Kwikpen (Bkc)) 0 unit SC 1000,1600,2200,0400 [facility]; Protocol Last Admin: 08/23/19 08:34 Dose: Not Given Documented by: Lansoprazole (Lansoprazole) 15 mg GT BID [facility] Last Admin: 08/23/19 08:28 Dose: 15 mg Documented by: Levothyroxine Sodium (Synthroid) 100 mcg GT DAILY [facility] Last Admin: 08/23/19 08:28 Dose: 100 mcg Documented by: Olanzapine (Zyprexa) 5 mg GT BID [facility] Last Admin: 08/23/19 08:25 Dose: 5 mg Documented by: Ondansetron HCl (Zofran) 4 mg IV Q8H PRN PRN PRN Reason: NAUSEA/VOMITING Phenytoin Sodium (Dilantin) 200 mg GT DAILY [facility] Last Admin: 08/23/19 08:26 Dose: 200 mg Documented by: Sodium Chloride () 10 - 40 ml IV UD PRN PRN Reason: SALINE FLUSH Last Admin: 08/23/19 03:22 Dose: 40 ml Documented by: STROKE Vital Signs/Narrative: Vital Signs Temp Pulse Resp BP Pulse Ox 08/23/19 07:31 55 L 26 H 100 08/23/19 06:00 98.9 F 53 L 26 H 137/68 H 99 Medical Necessity - Tobacco Use Smoking Status: Never smoker Assessment/Plan All Active Problems (Last Reviewed 08/13/19 @ 01:[address] Matt Espinoza MD) Pneumonia (Acute) Hypoxia (Acute) COVID-19 (Acute) SARS-associated coronavirus infection (Acute) LI (acute kidney injury) (Acute) 1. Acute hypoxic respiratory failure due to COVID 19 infection remains intubated and sedated. failed spontaneous breathing trial critical care on board has completed a course of zosyn and also received convalescent plasma on breathing treatment with bronchodilators. titrate oxygen to maintain sats >90% 2. COVID 19 infection has completed a course of IV zosyn, adn also received convalescent plasma currently on heparin drip for anticoagulation ID on board 3. Nonstemi: troponins peaked at 1.89. 2D echo showed EF of 65% was thought to be due to demand ischemia on heparin and aspirin patient currently intubated and sedated; will need cardiology workup after he is extubated 4. LI currently non oliguric nephrology on board; having dialysis in cumulative positive balance by 10.35L last had dialysis on 08.21.2019 5. Hypothyroidism: On Synthroid. 6. Seizure disorder: Currently on phenytoin. Nutrition: On enteral feeding with vital AF at 65 mils per hour. GI prophylaxis: On lansoprazole DVT prophylaxis: On heparin drip Inpatient E&M: 10051 [facility] Hosp L3
--- NOTE | 2019-08-23 09:15 | CASEMGMT ---
CONCHA HACKETT Note: Participated in ICU rounds. Pt remains on ventilator, AC, 35%, failed weaning trials. Continue PT/OT, Nephrology consulted for continued dialysis. SW has been in contact with re: dc planning. Undetermined what pt will need @ this time. CM/MAGUI will continue to follow and assist with dc planning. Sharri SHAHN CONCHA ACM
--- NOTE | 2019-08-23 09:54 | PN.ID_ITS ---
Patient Problems: Active and Suspected Problems (Last Reviewed 08/13/19 @ 01:[address] Matt Espinoza MD) Pneumonia (Acute) Hypoxia (Acute) COVID-19 (Acute) SARS-associated coronavirus infection (Acute) LI (acute kidney injury) (Acute) Subjective: No further fever, remains on vent - Physical Exam Vitals/I&O's: Vital Signs Temp Pulse Resp BP Pulse Ox 98.9 F 56 L 17 151/68 H 100 08/23/19 06:00 08/23/19 09:28 08/23/19 09:28 08/23/19 08:00 08/23/19 09:28 Oxygen Flow Rate (L/min) 40 Oxygen Delivery Method Mechanical Ventilator Weight: 97.2 kg Body Mass Index (BMI) 31.1 Intake and Output for Last 24 Hours 08/21/19 08/22/19 08/23/19 23:59 23:59 23:59 Intake Total 3993.86 / 4050.76 3306.42 / 3332.52 1055.72 / 1055.72 Output Total 4610 / 4610 2125 / 2125 700 / 700 Balance -616.14 / -559.24 1181.42 / 1207.52 355.72 / 355.72 General: No apparent distress Lungs: Clear to auscultation, Normal air movement Cardiovascular: Regular rate, Regular Rhythm Abdomen: Soft, Non Tender, Non-Distended Skin: No rashes Microbiology Past 72 Hours 08/17/19 16:45 Blood Culture (Wb) - Central Line Blood Culture - Final No growth in 5 days. 08/17/19 11:50 Blood Culture (Wb) - Right Hand Blood Culture - Final No growth in 5 days. 08/18/19 10:02 Sputum, Induced/Lukens Gram Stain - Final 08/18/19 10:02 Sputum, Induced/Lukens Respiratory Culture - Final Culture exhibits no growth. Laboratory Results 08/19/19 16:30: Hep B Core Total Ab Negative 08/22/19 12:22: POC Glucose 145 H 08/22/19 15:28: POC Glucose 157 H 08/22/19 21:05: POC Glucose 130 H 08/23/19 03:18: POC Glucose 162 H 08/23/19 03:25: APTT 70.6 H 08/23/19 03:25: WBC 14.0 H, RBC 3.55 L, Hgb 12.0 L, Hct 36.7 L, MCV 103.4 H, MCH 33.8 H, MCHC 32.7, RDW Std Deviation 57.1 H, RDW Coeff of Nacho 15.0 H, Plt Count 581 H, MPV 9.8, Neut % (Auto) Not Reportable, Absolute Neuts (auto) 11.9 H, Absolute Lymphs (auto) 1.40, Total Counted 100, Neutrophils % (Manual) 80 H, Band Neutrophils % 5, Lymphocytes % (Manual) 10 L, Monocytes % (Manual) 5, Metamyelocytes % 1, Diff Path Review July08/23/19 03:25: Sodium 142, Potassium 3.7, Chloride 107, Carbon Dioxide 26.0, Anion Gap 9, BUN 77 H, Creatinine 1.20, Estim Creat Clear Calc 52.38, Est GFR (MDRD) Af Amer 75, Est GFR (MDRD) Non-Af 62, BUN/Creatinine Ratio 64.2 H, Glucose 166 H, Calcium 8.2 L, Phosphorus 4.3, Magnesium 2.4 08/23/19 08:33: POC Glucose 146 H Current Medications Acetaminophen (Tylenol Liquid) 650 mg GT Q4H PRN PRN PRN Reason: Pain Score 1-10/Temp > 100.7 F Last Admin: 08/19/19 05:02 Dose: 650 mg Documented by: Aspirin (Aspirin, Baby) 81 mg GT DAILY@1000 [facility] Last Admin: 08/23/19 08:28 Dose: 81 mg Documented by: Chlorhexidine Gluconate () 15 ml PO BID [facility] Last Admin: 08/23/19 08:33 Dose: 15 ml Documented by: Dextrose (D50w Syringe) 0 gm IV X1 PRN; Protocol PRN Reason: Hypoglycemia Glucagon () 1 mg IM .X1 PRN PRN Reason: Hypoglycemia Guaifenesin (Robitussin) 10 ml GT 1000,1600,2200,0400 [facility] Last Admin: 08/23/19 08:30 Dose: 10 ml Documented by: Heparin Sodium (Porcine) (Heparin Na) 0 unit IV UD PRN; Protocol Last Admin: 08/20/19 21:45 Dose: 1,000 unit Documented by: Sodium Chloride () 250 mls @ 15 mls/hr IV .[id number] PRN PRN Reason: Saline Flush Sodium Chloride () 250 mls @ 15 mls/hr IV .[id number] PRN PRN Reason: Additional IVPB Infusion Fentanyl () 100 mls @ 5 mls/hr IV UD [facility]; Protocol Last Titration: 08/23/19 05:00 Dose: 200 mcg/hr, 20 mls/hr Documented by: Enteral Nutritional Formula (Vital Af 1.2 Emanuel Liquid) 1,000 mls @ 65 mls/hr GT .[id number] [facility] Last Admin: 08/22/19 19:13 Dose: Not Given Documented by: Heparin Sodium/Dextrose () 25,000 units in 250 mls @ 14 mls/hr IV .[id number] [facility]; Protocol Last Titration: 08/23/19 04:23 Dose: 2,100 units/hr, 21 mls/hr Documented by: Dexmedetomidine HCl 1,000 mcg/ (Sodium Chloride) 250 mls @ 36.45 mls/hr CONT INF .Q6H52M [facility]; Protocol Last Admin: 08/23/19 06:42 Dose: 1.5 mcg/kg/hr, 36.4 mls/hr Documented by: Insulin Human Lispro (Humalog Kwikpen (Bkc)) 0 unit SC 1000,1600,2200,0400 [facility]; Protocol Last Admin: 08/23/19 08:34 Dose: Not Given Documented by: Lansoprazole (Lansoprazole) 15 mg GT BID [facility] Last Admin: 08/23/19 08:28 Dose: 15 mg Documented by: Levothyroxine Sodium (Synthroid) 100 mcg GT DAILY [facility] Last Admin: 08/23/19 08:28 Dose: 100 mcg Documented by: Olanzapine (Zyprexa) 5 mg GT BID [facility] Last Admin: 08/23/19 08:25 Dose: 5 mg Documented by: Ondansetron HCl (Zofran) 4 mg IV Q8H PRN PRN PRN Reason: NAUSEA/VOMITING Phenytoin Sodium (Dilantin) 200 mg GT DAILY [facility] Last Admin: 08/23/19 08:26 Dose: 200 mg Documented by: Sodium Chloride () 10 - 40 ml IV UD PRN PRN Reason: SALINE FLUSH Last Admin: 08/23/19 03:22 Dose: 40 ml Documented by: Medical Necessity - Tobacco Use Smoking Status: Never smoker Route of nutrition/ use of supplements: [] Nutritional Intake: [] IV Site: [] Neil Catheter: [] - Assessment/Plan Antibiotics: [] Assessment/Plan: [] Active and Suspected Problems (Last Reviewed 08/13/19 @ 01:[address] Matt Espinoza MD) Pneumonia (Acute) Hypoxia (Acute) COVID-19 (Acute) SARS-associated coronavirus infection (Acute) COVID with hypoxic resp failure - s/p convalescent plasma 08/12. MRSA screen neg. Completed short course empiric zosyn. Cxs neg so far. O2 much better, fever resolved now. Will follow
--- NOTE | 2019-08-23 09:56 | RAD_ITS ---
STUDY: X-RAY CHEST REASON FOR EXAM: Male, 79 years old. POSITIVE FOR COVID 19 RESPITORY FAILURE TECHNIQUE: Single AP portable view of the chest. COMPARISON: Comparison is made with prior examination dated August 19, 2019. FINDINGS: An endotracheal tube is in situ. The tip is at 3.3 cm proximal to the syd. A right-sided dialysis catheter is seen with its tip at the junction of the superior vena cava and right atrium. A left-sided intrajugular venous catheter seen with the tip at the junction of the superior vena cava and right atrium. Persistent bilateral pulmonary infiltrates. This has progressed along the lateral aspect of the left hemithorax as well as in the right lung base. Improved aeration of the right upper lobe. There is no demonstrated pleural abnormality. Normal size heart. Normal mediastinum and dane. Normal visualized pulmonary arteries. Normal visualized aortic arch and descending thoracic aorta. Normal visualized thoracic spine. There is degenerative osteoarthritis of the bilateral shoulders. There is no demonstrated abnormality of the visualized soft tissue structures of the upper abdomen. RAD/Chest 1 View (Portable) IMPRESSION: All the support tubes are in good position. Progressive infiltrate seen in the peripheral aspect of the left lung as well as at the right lung base. Improved aeration of the right upper lobe. Electronically Signed: Abdulaziz Romero, at 12:28 EDT , Service support ,
[2019-08-23] MEDS: Vital AF 1.2 Cal Liquid 1,000 ML 65 ML GT (10:09)
--- NOTE | 2019-08-23 11:10 | CASEMGMT ---
Social Work Note SW participated in ICU rounds. Pt remains on vent. SW to continue to follow. SW updated that pt's and son do NOT want pt going to [facility] at discharge. If SNF is needed, prefers for pt to go to [facility]. TCU is only taking negative COVID patients. Chelly Vargas [employer]NER, MBA INTERN
--- NOTE | 2019-08-23 11:14 | PN.RENAL_ITS ---
Patient Problems: Active and Suspected Problems (Last Reviewed 08/13/19 @ 01:[address] Matt Espinoza MD) Pneumonia (Acute) Hypoxia (Acute) COVID-19 (Acute) SARS-associated coronavirus infection (Acute) LI (acute kidney injury) (Acute) Subjective: no new events BP is ok - Physical Exam Vitals/I&O's: Vital Signs Temp Pulse Resp BP Pulse Ox 98.9 F 56 L 17 151/68 H 100 08/23/19 06:00 08/23/19 09:28 08/23/19 09:28 08/23/19 08:00 08/23/19 09:28 Oxygen Flow Rate (L/min) 40 Oxygen Delivery Method Mechanical Ventilator Weight: 97.2 kg Body Mass Index (BMI) 31.1 Intake and Output for Last 24 Hours 08/21/19 08/22/19 08/23/19 23:59 23:59 23:59 Intake Total 3993.86 / 4050.76 3306.42 / 3332.52 1224.05 / 1224.05 Output Total 4610 / 4610 2125 / 2125 700 / 700 Balance -616.14 / -559.24 1181.42 / 1207.52 524.05 / 524.05 General: No apparent distress HEENT: Atraumatic, PERRLA, EOMI, Normocephalic Neck: Supple, No JVD, Negative Carotid Bruits Lungs: Normal air movement, Rales Cardiovascular: Regular rate, No murmurs Abdomen: Bowel Sounds Present, Soft, Non Tender Extremities: Capillary Refill Less than 3 Seconds, Edema Skin: No rashes, No breakdown Musculoskeletal: No Tenderness to Palpation of Joints or Extremities Microbiology Past 72 Hours 08/17/19 16:45 Blood Culture (Wb) - Central Line Blood Culture - Final No growth in 5 days. 08/17/19 11:50 Blood Culture (Wb) - Right Hand Blood Culture - Final No growth in 5 days. 08/18/19 10:02 Sputum, Induced/Lukens Gram Stain - Final 08/18/19 10:02 Sputum, Induced/Lukens Respiratory Culture - Final Culture exhibits no growth. Laboratory Results 08/19/19 16:30: Hep B Core Total Ab Negative 08/22/19 12:22: POC Glucose 145 H 08/22/19 15:28: POC Glucose 157 H 08/22/19 21:05: POC Glucose 130 H 08/23/19 03:18: POC Glucose 162 H 08/23/19 03:25: APTT 70.6 H 08/23/19 03:25: WBC 14.0 H, RBC 3.55 L, Hgb 12.0 L, Hct 36.7 L, MCV 103.4 H, MCH 33.8 H, MCHC 32.7, RDW Std Deviation 57.1 H, RDW Coeff of Nacho 15.0 H, Plt Count 581 H, MPV 9.8, Neut % (Auto) Not Reportable, Absolute Neuts (auto) 11.9 H, Absolute Lymphs (auto) 1.40, Total Counted 100, Neutrophils % (Manual) 80 H, Band Neutrophils % 5, Lymphocytes % (Manual) 10 L, Monocytes % (Manual) 5, Metamyelocytes % 1, Diff Path Review July08/23/19 03:25: Sodium 142, Potassium 3.7, Chloride 107, Carbon Dioxide 26.0, Anion Gap 9, BUN 77 H, Creatinine 1.20, Estim Creat Clear Calc 52.38, Est GFR (MDRD) Af Amer 75, Est GFR (MDRD) Non-Af 62, BUN/Creatinine Ratio 64.2 H, Glucose 166 H, Calcium 8.2 L, Phosphorus 4.3, Magnesium 2.4 08/23/19 08:33: POC Glucose 146 H Current Medications Acetaminophen (Tylenol Liquid) 650 mg GT Q4H PRN PRN PRN Reason: Pain Score 1-10/Temp > 100.7 F Last Admin: 08/19/19 05:02 Dose: 650 mg Documented by: Aspirin (Aspirin, Baby) 81 mg GT DAILY@1000 [facility] Last Admin: 08/23/19 08:28 Dose: 81 mg Documented by: Chlorhexidine Gluconate () 15 ml PO BID [facility] Last Admin: 08/23/19 08:33 Dose: 15 ml Documented by: Dextrose (D50w Syringe) 0 gm IV X1 PRN; Protocol PRN Reason: Hypoglycemia Glucagon () 1 mg IM .X1 PRN PRN Reason: Hypoglycemia Guaifenesin (Robitussin) 10 ml GT 1000,1600,2200,0400 [facility] Last Admin: 08/23/19 08:30 Dose: 10 ml Documented by: Heparin Sodium (Porcine) (Heparin Na) 0 unit IV UD PRN; Protocol Last Admin: 08/20/19 21:45 Dose: 1,000 unit Documented by: Sodium Chloride () 250 mls @ 15 mls/hr IV .[id number] PRN PRN Reason: Saline Flush Sodium Chloride () 250 mls @ 15 mls/hr IV .[id number] PRN PRN Reason: Additional IVPB Infusion Fentanyl () 100 mls @ 5 mls/hr IV UD [facility]; Protocol Last Admin: 08/23/19 09:58 Dose: 200 mcg/hr, 20 mls/hr Documented by: Enteral Nutritional Formula (Vital Af 1.2 Emanuel Liquid) 1,000 mls @ 65 mls/hr GT .[id number] [facility] Last Admin: 08/23/19 10:09 Dose: 65 mls/hr Documented by: Heparin Sodium/Dextrose () 25,000 units in 250 mls @ 14 mls/hr IV .[id number] [facility]; Protocol Last Titration: 08/23/19 04:23 Dose: 2,100 units/hr, 21 mls/hr Documented by: Dexmedetomidine HCl 1,000 mcg/ (Sodium Chloride) 250 mls @ 36.45 mls/hr CONT INF .Q6H52M [facility]; Protocol Last Admin: 08/23/19 06:42 Dose: 1.5 mcg/kg/hr, 36.4 mls/hr Documented by: Insulin Human Lispro (Humalog Kwikpen (Bkc)) 0 unit SC 1000,1600,2200,0400 [facility]; Protocol Last Admin: 08/23/19 08:34 Dose: Not Given Documented by: Lansoprazole (Lansoprazole) 15 mg GT BID [facility] Last Admin: 08/23/19 08:28 Dose: 15 mg Documented by: Levothyroxine Sodium (Synthroid) 100 mcg GT DAILY [facility] Last Admin: 08/23/19 08:28 Dose: 100 mcg Documented by: Olanzapine (Zyprexa) 5 mg GT BID [facility] Last Admin: 08/23/19 08:25 Dose: 5 mg Documented by: Ondansetron HCl (Zofran) 4 mg IV Q8H PRN PRN PRN Reason: NAUSEA/VOMITING Phenytoin Sodium (Dilantin) 200 mg GT DAILY [facility] Last Admin: 08/23/19 08:26 Dose: 200 mg Documented by: Sodium Chloride () 10 - 40 ml IV UD PRN PRN Reason: SALINE FLUSH Last Admin: 08/23/19 03:22 Dose: 40 ml Documented by: Medical Necessity - Tobacco Use Smoking Status: Never smoker Assessment/Plan All Active Problems (Last Reviewed 08/13/19 @ 01:[address] Matt Espinoza MD) Pneumonia (Acute) Hypoxia (Acute) COVID-19 (Acute) SARS-associated coronavirus infection (Acute) LI (acute kidney injury) (Acute) LI. normal baseline. zarco in place, hence obstructive unlikely. UA reviewed, consistent with Covid related LI. oliguria with volume overload. received 3 HD treatments so far today BUN is at 70, cr 1.2. better than yesterday CXR reviewed. still has bilateral infiltrates, ? somewhat worse still overall net positive for admission urine output is now present will plan for isolated UF today add IV lasix 40 mg BID IV alex Navarro
[2019-08-23 11:55] LABS: Pathologist Review Reviewed
[2019-08-23 11:58] LABS: Pathologist Review Reviewed
[2019-08-23] MEDS: Dexmedetomidine 1,000 mcg in 0.9% NS 240 mL 36.5 MCG CONT INF ×2 (13:34→20:39)
[2019-08-23 16:21] LABS: Bedside Glucose 138 mg/dL (70-110)
--- NOTE | 2019-08-23 17:41 | NURSING ---
pt receiving dialysis
[2019-08-23] MEDS: Heparin 10,000 UNITS/10 ML Vial 2600 UNITS IV (17:54)
--- NOTE | 2019-08-23 18:20 | DIALYSIS ---
Hemodialysis complete. 2 hour IUF. Net fluid removed = 2600 ml. Patient tolerated HD tx well. Right IJ CVC. Site benign, dressing dry and intact, lumen flushed with NS, filled to volume with Heparin, capped and clamped. Report given to primary RN, Colette Oliver.
[2019-08-23] MEDS: Furosemide 40 MG/4 ML Vial IV (20:09)
[2019-08-23 23:00] LABS: Bedside Glucose 131 mg/dL (70-110)
[2019-08-24] VITALS (28 sets, daily range): BP systolic 108–156; BP diastolic 51–69; PULSE 42–82; RESP 14–34; TEMP 36.9–37.5; O2SAT 92–100
[2019-08-24] MEDS: HEPARIN/D5w 25,000 UNITS 25,000 UNITS/250 ML IV.SOLN. 21 UNITS IV (00:36)
[2019-08-24] MEDS: Vital AF 1.2 Cal Liquid 1,000 ML 65 ML GT (00:38)
[2019-08-24] MEDS: fentaNYL drip 100 ML 20 MCG IV (01:43)
[2019-08-24] MEDS: Dexmedetomidine 1,000 mcg in 0.9% NS 240 mL 36.5 MCG CONT INF (03:30)
[2019-08-24] MEDS: guaiFENesin 10 ML UDC (200MG/10ML) GT (03:52)
[2019-08-24 04:20] LABS: Hematocrit 36.3 % (40-54); Hemoglobin 11.9 g/dL (13.0-16.5); Mean Corp Hgb Conc 32.8 g/dL (32-36); Mean Corpuscular Hgb 34.2 pg (27.0-32.0); Mean Corpuscular Volume 104.3 fL (80-94); Mean Platelet Vol. 10.2 fl (6.2-12.0); POSITIVE COUNT YES; POSITIVE MORPHOLOGY YES; Platelet Count 575 K/mm3 (150-450); RBC Distribution Width CV 15.3 % (11.6-14.6); RBC Distribution Width SD 58.9 fl (35.1-43.9); Red Blood Count 3.48 M/mm3 (4.6-6.2); White Blood Count 16.7 K/mm3 (4.4-11.0)
[2019-08-24 04:24] LABS: Differential Indicated MANUAL DIFF
[2019-08-24 04:29] LABS: Anion Gap 8 (5-15); BUN 77 mg/dL (7-18); BUN/Creat Ratio 69.4 RATIO (10-20); Calcium,Total 8.3 mg/dL (8.5-10.1); Chloride 109 mmol/L (98-107); Creatinine, Serum 1.11 mg/dL (0.70-1.30); EST Glomerular Filtration Rate 68 mL/min (>60); Est Glom Filt Rate - Afr Amer 82 mL/min (>60); Estimated Creatinine Clearance 56.63 ml/min; Glucose 149 mg/dL (74-106); Partial Thromboplast Time 93.1 Seconds (24.1-36.2); Potassium 3.6 mmol/L (3.5-5.1); Sodium Level 144 mmol/L (136-145)
[2019-08-24 04:43] LABS: Eosinophil 1 % (0-5); Lymphocyte 6 % (19-41); Metamyelocyte 6 % (0-1); Monocyte 7 % (0-10); Neutrophil-Band 12 % (0-5); Neutrophil-Segmented 68 % (47-70); Total Cells Counted 100 (MANUAL DIFF)
[2019-08-24 04:45] LABS: Absolute Neutrophil Count 13.4 X10^3/uL (2.0-7.7); Anisocytosis 1+; Macrocytosis 1+; Neutrophil # 13.36 X10^3/uL (2.7-7.7); Platelet Estimate SLT INC (ADEQ); Polychromasia RARE
[2019-08-24 05:40] LABS: Bedside Glucose 140 mg/dL (70-110)
--- NOTE | 2019-08-24 06:17 | PCM.PN.INT ---
Subjective: The patient was seen and examined at the bedside this morning. Events from the last 24 hours have been reviewed. The patient is currently afebrile, hemodynamically stable and maintaining appropriate oxygen saturations with an FiO2 requirement of 30%. The patient did tolerate 2 hours of ultrafiltration yesterday with 2.6 L of fluid removed. The patient did pass a spontaneous breathing trial this morning. He is alert and able to follow simple commands. He is now documented to be overall net positive 8.8L for the hospital admission. Creatinine is stable. Urine output has increased. Objective: The patient's most recent lab work, culture data and imaging studies have all been personally reviewed. CTA chest revealed suboptimal opacification of the bilateral pulmonary arteries. No significant PE was identified. However, bilateral groundglass changes were present, most pronounced in the right lower lobe. Coronavirus PCR was positive on August 06. Respiratory viral panel was negative. Strep and urine Legionella antigens were negative. General: Alert, Cooperative, - - Remains intubated mechanically ventilated. Currently tolerating spontaneous mode mechanical ventilation. HEENT: Atraumatic, PERRLA, Normocephalic Oral: No Gingival or Mucosal Lesions/ Ulcerations, - - Endotracheal and OG tubes remain in place Neck: Supple, No Nodes, Trachea Midline, - - Stable bilateral central venous catheters Lungs: No rhonchi, No wheeze, No rales, Diminished, Tachypneic Cardiovascular: Normal S1, Normal S2, No murmurs, Bradycardic Abdomen: Bowel Sounds Present, Soft, Non Tender Extremities: No clubbing, No cyanosis, Edema Skin: No breakdown Musculoskeletal: No Muscle Wasting Lymphatic: No Cervical, Supraclavicular, or Inguinal Adenopathy Neurological: - - No focal neurological deficits. Moves extremities spontaneously. Alert and able to follow simple commands. Vital Signs Temp Pulse Resp BP Pulse Ox 99.1 F 50 L 26 H 150/68 H 97 08/24/19 05:00 08/24/19 05:10 08/24/19 05:10 08/24/19 05:00 08/24/19 05:10 Oxygen Flow Rate (L/min) 40 Oxygen Delivery Method Mechanical Ventilator Weight: 207 lb 14.334 oz Body Mass Index (BMI) 31.1 Intake and Output for Last 24 Hours 08/22/19 08/23/19 08/24/19 23:59 23:59 23:59 Intake Total 3306.42 / 3332.52 3644.89 / 3991.29 1104.37 / 1104.37 Output Total 2125 / 2125 4325 / 5325 1600 / 1600 Balance 1181.42 / 1207.52 -680.11 / -1333.71 -495.63 / -495.63 Labs (Last 48 Hours) 08/19/19 08/21/19 08/22/19 16:30 03:25 03:20 WBC RBC Hgb Hct MCV MCH MCHC RDW Std Deviation RDW Coeff of Nacho Plt Count MPV Neut % (Auto) Absolute Neuts (auto) 12.1 H Absolute Lymphs (auto) 0.58 L Total Counted 100 Neutrophils % (Manual) 74 H Band Neutrophils % 9 H Lymphocytes % (Manual) 11 L Monocytes % (Manual) 2 Eosinophils % (Manual) Metamyelocytes % 4 H Diff Path Review Reviewed Reviewed Platelet Estimate MOD INC Polychromasia RARE Hypochromasia RARE Anisocytosis Macrocytosis 1+ APTT Specimen Type Sample Site pH Bicarbonate Actual POC Total CO2 Base Excess O2 Saturation O2 % ABG pCO2 ABG pO2 Oziel Test O2 Delivery Device Vent Mode POC PEEP POC Pressure Suppt Blood Gas Notified Whom Sodium Potassium Chloride Carbon Dioxide Anion Gap BUN Creatinine Estim Creat Clear Calc Est GFR (MDRD) Af Amer Est GFR (MDRD) Non-Af BUN/Creatinine Ratio Glucose Calcium Phosphorus Magnesium Hep B Core Total Ab Negative POC Glucose 08/22/19 08/22/19 08/22/19 07:17 12:22 15:28 WBC RBC Hgb Hct MCV MCH MCHC RDW Std Deviation RDW Coeff of Nacho Plt Count MPV Neut % (Auto) Absolute Neuts (auto) Absolute Lymphs (auto) Total Counted Neutrophils % (Manual) Band Neutrophils % Lymphocytes % (Manual) Monocytes % (Manual) Eosinophils % (Manual) Metamyelocytes % Diff Path Review Platelet Estimate Polychromasia Hypochromasia Anisocytosis Macrocytosis APTT Specimen Type ART Sample Site L RADIAL pH 7.35 Bicarbonate Actual 26.8 H POC Total CO2 28 Base Excess 1 O2 Saturation 94 L O2 % 35 ABG pCO2 49.0 H ABG pO2 76 Oziel Test POS O2 Delivery Device Vent Vent Mode CPAP PS POC PEEP 5 POC Pressure Suppt 5 Blood Gas Notified Whom ICU Sodium Potassium Chloride Carbon Dioxide Anion Gap BUN Creatinine Estim Creat Clear Calc Est GFR (MDRD) Af Amer Est GFR (MDRD) Non-Af BUN/Creatinine Ratio Glucose Calcium Phosphorus Magnesium Hep B Core Total Ab POC Glucose 145 H 157 H 08/22/19 08/23/19 08/23/19 21:05 03:18 03:25 WBC RBC Hgb Hct MCV MCH MCHC RDW Std Deviation RDW Coeff of Nacho Plt Count MPV Neut % (Auto) Absolute Neuts (auto) Absolute Lymphs (auto) Total Counted Neutrophils % (Manual) Band Neutrophils % Lymphocytes % (Manual) Monocytes % (Manual) Eosinophils % (Manual) Metamyelocytes % Diff Path Review Platelet Estimate Polychromasia Hypochromasia Anisocytosis Macrocytosis APTT 70.6 H Specimen Type Sample Site pH Bicarbonate Actual POC Total CO2 Base Excess O2 Saturation O2 % ABG pCO2 ABG pO2 Oziel Test O2 Delivery Device Vent Mode POC PEEP POC Pressure Suppt Blood Gas Notified Whom Sodium Potassium Chloride Carbon Dioxide Anion Gap BUN Creatinine Estim Creat Clear Calc Est GFR (MDRD) Af Amer Est GFR (MDRD) Non-Af BUN/Creatinine Ratio Glucose Calcium Phosphorus Magnesium Hep B Core Total Ab POC Glucose 130 H 162 H 08/23/19 08/23/19 08/23/19 03:25 03:25 08:33 WBC 14.0 H RBC 3.55 L Hgb 12.0 L Hct 36.7 L MCV 103.4 H MCH 33.8 H MCHC 32.7 RDW Std Deviation 57.1 H RDW Coeff of Nacho 15.0 H Plt Count 581 H MPV 9.8 Neut % (Auto) Not Reportable Absolute Neuts (auto) 11.9 H Absolute Lymphs (auto) 1.40 Total Counted 100 Neutrophils % (Manual) 80 H Band Neutrophils % 5 Lymphocytes % (Manual) 10 L Monocytes % (Manual) 5 Eosinophils % (Manual) Metamyelocytes % 1 Diff Path Review May foll Platelet Estimate Polychromasia Hypochromasia Anisocytosis Macrocytosis APTT Specimen Type Sample Site pH Bicarbonate Actual POC Total CO2 Base Excess O2 Saturation O2 % ABG pCO2 ABG pO2 Oziel Test O2 Delivery Device Vent Mode POC PEEP POC Pressure Suppt Blood Gas Notified Whom Sodium 142 Potassium 3.7 Chloride 107 Carbon Dioxide 26.0 Anion Gap 9 BUN 77 H Creatinine 1.20 Estim Creat Clear Calc 52.38 Est GFR (MDRD) Af Amer 75 Est GFR (MDRD) Non-Af 62 BUN/Creatinine Ratio 64.2 H Glucose 166 H Calcium 8.2 L Phosphorus 4.3 Magnesium 2.4 Hep B Core Total Ab POC Glucose 146 H 08/23/19 08/23/19 08/24/19 16:09 21:34 03:47 WBC RBC Hgb Hct MCV MCH MCHC RDW Std Deviation RDW Coeff of Nacho Plt Count MPV Neut % (Auto) Absolute Neuts (auto) Absolute Lymphs (auto) Total Counted Neutrophils % (Manual) Band Neutrophils % Lymphocytes % (Manual) Monocytes % (Manual) Eosinophils % (Manual) Metamyelocytes % Diff Path Review Platelet Estimate Polychromasia Hypochromasia Anisocytosis Macrocytosis APTT Specimen Type Sample Site pH Bicarbonate Actual POC Total CO2 Base Excess O2 Saturation O2 % ABG pCO2 ABG pO2 Oziel Test O2 Delivery Device Vent Mode POC PEEP POC Pressure Suppt Blood Gas Notified Whom Sodium Potassium Chloride Carbon Dioxide Anion Gap BUN Creatinine Estim Creat Clear Calc Est GFR (MDRD) Af Amer Est GFR (MDRD) Non-Af BUN/Creatinine Ratio Glucose Calcium Phosphorus Magnesium Hep B Core Total Ab POC Glucose 138 H 131 H 140 H 08/24/19 08/24/19 08/24/19 03:50 03:50 03:50 WBC 16.7 H RBC 3.48 L Hgb 11.9 L Hct 36.3 L MCV 104.3 H MCH 34.2 H MCHC 32.8 RDW Std Deviation 58.9 H RDW Coeff of Nacho 15.3 H Plt Count 575 H MPV 10.2 Neut % (Auto) Not Reportable Absolute Neuts (auto) 13.4 H Absolute Lymphs (auto) 1.00 Total Counted 100 Neutrophils % (Manual) 68 Band Neutrophils % 12 H Lymphocytes % (Manual) 6 L Monocytes % (Manual) 7 Eosinophils % (Manual) 1 Metamyelocytes % 6 H Diff Path Review May foll Platelet Estimate SLT INC Polychromasia RARE Hypochromasia Anisocytosis 1+ Macrocytosis 1+ APTT 93.1 H* Specimen Type Sample Site pH Bicarbonate Actual POC Total CO2 Base Excess O2 Saturation O2 % ABG pCO2 ABG pO2 Oziel Test O2 Delivery Device Vent Mode POC PEEP POC Pressure Suppt Blood Gas Notified Whom Sodium 144 Potassium 3.6 Chloride 109 H Carbon Dioxide 27.0 Anion Gap 8 BUN 77 H Creatinine 1.11 Estim Creat Clear Calc 56.63 Est GFR (MDRD) Af Amer 82 Est GFR (MDRD) Non-Af 68 BUN/Creatinine Ratio 69.4 H Glucose 149 H Calcium 8.3 L Phosphorus Magnesium Hep B Core Total Ab POC Glucose Microbiology 08/17/19 16:45 Blood Culture (Wb) - Central Line Blood Culture - Final No growth in 5 days. 08/17/19 11:50 Blood Culture (Wb) - Right Hand Blood Culture - Final No growth in 5 days. Clinical Impression(s) from Imaging Studies Chest X-Ray 08/12/19 22:50 IMPRESSION: Worsening of bilateral pulmonary infiltrates consistent with nonspecific multifocal pneumonia. Electronically Signed: Eriberto Smalls MD at 23:13 EDT , Service support , Chest X-Ray 08/14/19 05:20 IMPRESSION: 1. Suggest advancing endotracheal tube approximately 2 or 3 cm. 2. Unchanged appearance to bilateral multifocal airspace disease consistent with pneumonia. Electronically Signed: Shamika Mistry MD at 8:34 EDT , Service support , Chest X-Ray 08/14/19 07:54 IMPRESSION: 1. Appropriate positioning of endotracheal and enteric tubes. 2. Extensive bilateral heterogeneous airspace consolidations consistent with multifocal pneumonia. There appears to be increasing left basilar airspace consolidation since previous radiograph. Electronically Signed: Shamika Mistry MD at 9:58 EDT , Service support , Chest X-Ray 08/17/19 13:00 IMPRESSION: 1. Left central venous catheter is in the superior vena cava. No pneumothorax. 2. Endotracheal and nasogastric tubes unchanged. 3. Improved aeration at the lung bases. The bilateral infiltrates are otherwise stable. Electronically Signed: Alfonzo Lucero MD at 13:28 EDT , Service support , Chest X-Ray 08/19/19 13:25 IMPRESSION: Progressive bilateral infiltrates. The tip of the right dialysis catheter is at the junction of superior vena cava and right atrium. Electronically Signed: Abdulaziz Romero, at 13:53 EDT , Service support , Chest X-Ray 08/23/19 09:56 IMPRESSION: All the support tubes are in good position. Progressive infiltrate seen in the peripheral aspect of the left lung as well as at the right lung base. Improved aeration of the right upper lobe. Electronically Signed: Abdulaziz Romero, at 12:28 EDT , Service support , Medical Necessity - Tobacco Use Smoking Status: Never smoker Assessment/Plan All Active Problems (Last Reviewed 08/13/19 @ 01:[address] Matt Espinoza MD) Pneumonia (Acute) Hypoxia (Acute) COVID-19 (Acute) SARS-associated coronavirus infection (Acute) LI (acute kidney injury) (Acute) RECOMMENDATIONS: 1. Proceed with a trial of extubation this morning. 2. Once extubated, wean supplemental oxygen to maintain saturations at or above 90%. 3. Place BiPAP in room, should noninvasive positive pressure ventilatory support be required. 4. Plan to wean Precedex off completely today. 5. Encourage incentive spirometer use and mobilize patient as tolerated. 6. Obtain speech therapy evaluation prior to advancing diet. 7. Given improvement in renal function, will transition the patient from heparin to Lovenox for systemic anticoagulation. 8. Continue appropriate ICU prophylaxis. IMPRESSIONS: 1. Acute hypoxemic respiratory failure secondary to COVID-19 infection The patient was evaluated in the emergency department on August 06 with a CTA chest which revealed bilateral groundglass changes. Subsequent COVID testing was positive. Although the patient was initially discharged home, he experienced worsening shortness of breath and hypoxemia, which prompted his hospital admission. Repeat chest imaging did reveal progressive bilateral infiltrates. The patient was initially placed on noninvasive positive pressure ventilatory support but decompensated eventually requiring intubation. The patient did receive convalescent [place] ([place] [id number]) on the evening of August 12. The patient has completed a course of Zosyn under the discretion of infectious diseases. The patient demonstrated slow clinical improvement and was able to be extubated on the morning of August 23. Plan at this time will include weaning of his supplemental oxygen to maintain saturations at or above 90%. Will obtain speech therapy evaluation to assess swallow prior to advancing diet. Encourage incentive spirometer use and mobilize patient as tolerated. The patient will be weaned off of Precedex completely today. Given improvement in renal function, will transition him from continuous heparin infusion to Lovenox therapy. 2. Acute kidney injury Resolved. Likely related to ATN in the setting of #1, along with hemodynamic instability which was generated as a consequence of sedative utilization. Renal function appears to be stabilizing with hemodialysis support. The patient is unlikely to require lifelong hemodialysis. Urine output has improved. Continue scheduled Lasix therapy as ordered. 3. Unspecified seizure disorder/hypothyroidism/hypertension/obesity Complicates care, management, recovery and prognosis. Continue home medications as indicated. Physical therapy to continue to work with the patient. TIME: 42 minutes of critical care time, independent of procedures, was spent addressing the patient's acute hypoxemic respiratory failure secondary to COVID-19 infection, acute kidney injury, troponin elevation, review of all data and collaboration with the care team. ([id number]) [phone]: [id number] Critical care first hour
--- NOTE | 2019-08-24 08:51 | CASEMGMT ---
RN CM Note: Dr. Navarro requested phone #'s for son and daughter of pt. Call to listed contact, THIAGO Blount requesting contact information. Son- Ruben Muñoz [phone] JillrerKeli Nga Ravi [phone].
--- NOTE | 2019-08-24 09:36 | PN_ITS ---
Patient Problems: Active and Suspected Problems (Last Reviewed 08/13/19 @ 01:[address] Matt Espinoza MD) Pneumonia (Acute) Hypoxia (Acute) COVID-19 (Acute) SARS-associated coronavirus infection (Acute) LI (acute kidney injury) (Acute) Subjective: Patient seen and examined. He was successfully extubated today after he passed spontaneous breathing trial. He was on 2 L of oxygen by nasal cannula at time of review. Patient was alert but confused and just kept staring at me while to ask him questions. Unable to do review of systems as patient was not answering any questions. He did obey commands though. Labs and vitals reviewed. He was bradycardic with heart rate being down in the 40s respiratory rate of 20. Chemistry was essentially unremarkable and white cell count is 16.7. Vitals/I&O's: Vital Signs Temp Pulse Resp BP Pulse Ox 98.9 F 47 L 20 H 129/56 H 98 08/24/19 08:00 08/24/19 08:00 08/24/19 08:00 08/24/19 08:00 08/24/19 08:00 Oxygen Flow Rate (L/min) 2 Oxygen Delivery Method Nasal Cannula Weight: 207 lb 14.334 oz Body Mass Index (BMI) 31.1 Intake and Output for Last 24 Hours 08/22/19 08/23/19 08/24/19 23:59 23:59 23:59 Intake Total 3306.42 / 3332.52 3644.89 / 3991.29 1284.37 / 1284.37 Output Total 2125 / 2125 4325 / 5325 1600 / 1600 Balance 1181.42 / 1207.52 -680.11 / -1333.71 -315.63 / -315.63 General: Alert, Cooperative, No apparent distress, Lethargic HEENT: Atraumatic, PERRLA, EOMI, Normocephalic Oral: Dry Mucosa Neck: Supple, No JVD, Negative Carotid Bruits Lungs: Clear to auscultation, Normal air movement Cardiovascular: Regular rate, Regular Rhythm, Normal S1, Normal S2, No murmurs Abdomen: Bowel Sounds Present, Soft, Non Tender, Non-Distended, No Hepato- splenomegaly Extremities: No clubbing, No cyanosis, No edema, Capillary Refill Less than 3 Seconds Skin: No rashes, No breakdown Musculoskeletal: No Tenderness to Palpation of Joints or Extremities Lymphatic: No Cervical, Supraclavicular, or Inguinal Adenopathy Neurological: Cranial nerves II-XII grossly intact Psych/Mental Status: Flat Affect Microbiology Past 72 Hours 08/17/19 16:45 Blood Culture (Wb) - Central Line Blood Culture - Final No growth in 5 days. 08/17/19 11:50 Blood Culture (Wb) - Right Hand Blood Culture - Final No growth in 5 days. 08/18/19 10:02 Sputum, Induced/Lukens Gram Stain - Final 08/18/19 10:02 Sputum, Induced/Lukens Respiratory Culture - Final Culture exhibits no growth. Laboratory Results 08/21/19 03:25: Diff Path Review Reviewed 08/22/19 03:20: Diff Path Review Reviewed 08/23/19 16:09: POC Glucose 138 H 08/23/19 21:34: POC Glucose 131 H 08/24/19 03:47: POC Glucose 140 H 08/24/19 03:50: APTT 93.1 H* 08/24/19 03:50: WBC 16.7 H, RBC 3.48 L, Hgb 11.9 L, Hct 36.3 L, MCV 104.3 H, MCH 34.2 H, MCHC 32.8, RDW Std Deviation 58.9 H, RDW Coeff of Nacho 15.3 H, Plt Count 575 H, MPV 10.2, Neut % (Auto) Not Reportable, Absolute Neuts (auto) 13.4 H, Absolute Lymphs (auto) 1.00, Total Counted 100, Neutrophils % (Manual) 68, Band Neutrophils % 12 H, Lymphocytes % (Manual) 6 L, Monocytes % (Manual) 7, Eosinophils % (Manual) 1, Metamyelocytes % 6 H, Diff Path Review May foll, Platelet Estimate SLT INC, Polychromasia RARE, Anisocytosis 1+, Macrocytosis 1+ 08/24/19 03:50: Sodium 144, Potassium 3.6, Chloride 109 H, Carbon Dioxide 27.0, Anion Gap 8, BUN 77 H, Creatinine 1.11, Estim Creat Clear Calc 56.63, Est GFR (MDRD) Af Amer 82, Est GFR (MDRD) Non-Af 68, BUN/Creatinine Ratio 69.4 H, Glucose 149 H, Calcium 8.3 L Diagnostic Data Chest X-Ray 08/23/19 09:56 IMPRESSION: All the support tubes are in good position. Progressive infiltrate seen in the peripheral aspect of the left lung as well as at the right lung base. Improved aeration of the right upper lobe. Electronically Signed: Abdulaziz Romero, at 12:28 EDT , Service support , Current Medications Acetaminophen (Tylenol Liquid) 650 mg GT Q4H PRN PRN PRN Reason: Pain Score 1-10/Temp > 100.7 F Last Admin: 08/19/19 05:02 Dose: 650 mg Documented by: Aspirin (Aspirin, Baby) 81 mg GT DAILY@1000 LEONARD Last Admin: 08/23/19 08:28 Dose: 81 mg Documented by: Dextrose (D50w Syringe) 0 gm IV X1 PRN; Protocol PRN Reason: Hypoglycemia Enoxaparin Sodium (Lovenox) 90 mg SC Q12@0600,1800 LEONARD Furosemide (Lasix) 40 mg IV BID@1000,1800 LEONARD Last Admin: 08/23/19 20:09 Dose: 40 mg Documented by: Glucagon () 1 mg IM .X1 PRN PRN Reason: Hypoglycemia Guaifenesin (Robitussin) 10 ml GT 1000,1600,2200,0400 LEONARD Last Admin: 08/24/19 03:52 Dose: 10 ml Documented by: Sodium Chloride () 250 mls @ 15 mls/hr IV .[id number] PRN PRN Reason: Saline Flush Sodium Chloride () 250 mls @ 15 mls/hr IV .[id number] PRN PRN Reason: Additional IVPB Infusion Dexmedetomidine HCl 1,000 mcg/ (Sodium Chloride) 250 mls @ 35.363 mls/hr CONT INF .Q7H5M LEONARD; Protocol Last Titration: 08/24/19 08:45 Dose: 0.5 mcg/kg/hr, 11.8 mls/hr Documented by: Insulin Human Lispro (Humalog Kwikpen (Bkc)) 0 unit SC 1000,1600,2200,0400 LEONARD; Protocol Last Admin: 08/24/19 03:52 Dose: Not Given Documented by: Lansoprazole (Lansoprazole) 15 mg GT BID [facility] Last Admin: 08/23/19 20:09 Dose: 15 mg Documented by: Levothyroxine Sodium (Synthroid) 100 mcg GT DAILY [facility] Last Admin: 08/23/19 08:28 Dose: 100 mcg Documented by: Ondansetron HCl (Zofran) 4 mg IV Q8H PRN PRN PRN Reason: NAUSEA/VOMITING Phenytoin Sodium (Dilantin) 200 mg GT DAILY [facility] Last Admin: 08/23/19 08:26 Dose: 200 mg Documented by: Sodium Chloride () 10 - 40 ml IV UD PRN PRN Reason: SALINE FLUSH Last Admin: 08/23/19 03:22 Dose: 40 ml Documented by: STROKE Vital Signs/Narrative: Vital Signs Temp Pulse Resp BP Pulse Ox 08/24/19 08:00 98.9 F 47 L 20 H 129/56 H 98 08/24/19 07:16 82 18 98 08/24/19 07:15 98 08/24/19 07:00 46 L 20 H 148/64 H 98 08/24/19 06:00 99.2 F H 52 L 25 H 150/69 H 98 Medical Necessity - Tobacco Use Smoking Status: Never smoker Assessment/Plan All Active Problems (Last Reviewed 08/13/19 @ 01:[address] Matt Espinoza MD) Pneumonia (Acute) Hypoxia (Acute) COVID-19 (Acute) SARS-associated coronavirus infection (Acute) LI (acute kidney injury) (Acute) 1. Acute hypoxic respiratory failure due to COVID 19 infection * passed spontaneous breathing trial and was successfully extubated today * on 2L of oxygen by nasal canula * critical care on board * has completed a course of zosyn and also received convalescent plasma * on breathing treatment with bronchodilators. * titrate oxygen to maintain sats >90% * 2. COVID 19 infection * has completed a course of IV zosyn, adn also received convalescent plasma * currently on heparin drip for anticoagulation * ID on board * 3. Nonstemi: * troponins peaked at 1.89. * 2D echo showed EF of 65% * was thought to be due to demand ischemia * on heparin and aspirin * patient currently intubated and sedated; will need cardiology workup after he is extubated * 4. Bradycardia: * HR has been in the 40s; cardiology on board. will need thyroid function workup once critical illness is over, as this may not give very accurate results * 5. LI * had ultrafiltration yesterday, with removal of 2.6L of fluid * nephrology on board * in cumulative positive balance by 9L * now making some urine; passed 1.6L of urine yesterday * 5. Hypothyroidism: On Synthroid. 6. Seizure disorder: Currently on phenytoin. Nutrition: On enteral feeding with vital AF at 65 mils per hour. GI prophylaxis: On lansoprazole DVT prophylaxis: On heparin drip Inpatient E&M: [id number] [facility] L[facility]
--- NOTE | 2019-08-24 09:48 | PN.ID_ITS ---
Patient Problems: Active and Suspected Problems (Last Reviewed 08/13/19 @ 01:[address] Matt Espinoza MD) Pneumonia (Acute) Hypoxia (Acute) COVID-19 (Acute) SARS-associated coronavirus infection (Acute) LI (acute kidney injury) (Acute) Subjective: Now extubated, trying to communicate, afebrile - Physical Exam Vitals/I&O's: Vital Signs Temp Pulse Resp BP Pulse Ox 98.9 F 47 L 20 H 129/56 H 98 08/24/19 08:00 08/24/19 08:00 08/24/19 08:00 08/24/19 08:00 08/24/19 08:00 Oxygen Flow Rate (L/min) 2 Oxygen Delivery Method Nasal Cannula Weight: 94.3 kg Body Mass Index (BMI) 31.1 Intake and Output for Last 24 Hours 08/22/19 08/23/19 08/24/19 23:59 23:59 23:59 Intake Total 3306.42 / 3332.52 3644.89 / 3991.29 1284.37 / 1284.37 Output Total 2125 / 2125 4325 / 5325 1600 / 1600 Balance 1181.42 / 1207.52 -680.11 / -1333.71 -315.63 / -315.63 General: Cooperative, No apparent distress Lungs: Diminished Cardiovascular: Tachycardic Abdomen: Soft, Non Tender, Non-Distended Extremities: Edema Skin: No rashes Microbiology Past 72 Hours 08/17/19 16:45 Blood Culture (Wb) - Central Line Blood Culture - Final No growth in 5 days. 08/17/19 11:50 Blood Culture (Wb) - Right Hand Blood Culture - Final No growth in 5 days. 08/18/19 10:02 Sputum, Induced/Lukens Gram Stain - Final 08/18/19 10:02 Sputum, Induced/Lukens Respiratory Culture - Final Culture exhibits no growth. Laboratory Results 08/21/19 03:25: Diff Path Review Reviewed 08/22/19 03:20: Diff Path Review Reviewed 08/23/19 16:09: POC Glucose 138 H 08/23/19 21:34: POC Glucose 131 H 08/24/19 03:47: POC Glucose 140 H 08/24/19 03:50: APTT 93.1 H* 08/24/19 03:50: WBC 16.7 H, RBC 3.48 L, Hgb 11.9 L, Hct 36.3 L, MCV 104.3 H, MCH 34.2 H, MCHC 32.8, RDW Std Deviation 58.9 H, RDW Coeff of Nacho 15.3 H, Plt Count 575 H, MPV 10.2, Neut % (Auto) Not Reportable, Absolute Neuts (auto) 13.4 H, Absolute Lymphs (auto) 1.00, Total Counted 100, Neutrophils % (Manual) 68, Band Neutrophils % 12 H, Lymphocytes % (Manual) 6 L, Monocytes % (Manual) 7, Eosinophils % (Manual) 1, Metamyelocytes % 6 H, Diff Path Review May foll, Platelet Estimate SLT INC, Polychromasia RARE, Anisocytosis 1+, Macrocytosis 1+ 08/24/19 03:50: Sodium 144, Potassium 3.6, Chloride 109 H, Carbon Dioxide 27.0, Anion Gap 8, BUN 77 H, Creatinine 1.11, Estim Creat Clear Calc 56.63, Est GFR (MDRD) Af Amer 82, Est GFR (MDRD) Non-Af 68, BUN/Creatinine Ratio 69.4 H, Glucose 149 H, Calcium 8.3 L Current Medications Acetaminophen (Tylenol Liquid) 650 mg GT Q4H PRN PRN PRN Reason: Pain Score 1-10/Temp > 100.7 F Last Admin: 08/19/19 05:02 Dose: 650 mg Documented by: Aspirin (Aspirin, Baby) 81 mg GT DAILY@1000 [facility] Last Admin: 08/23/19 08:28 Dose: 81 mg Documented by: Dextrose (D50w Syringe) 0 gm IV X1 PRN; Protocol PRN Reason: Hypoglycemia Enoxaparin Sodium (Lovenox) 90 mg SC Q12@0600,1800 [facility] Furosemide (Lasix) 40 mg IV BID@1000,1800 [facility] Last Admin: 08/23/19 20:09 Dose: 40 mg Documented by: Glucagon () 1 mg IM .X1 PRN PRN Reason: Hypoglycemia Guaifenesin (Robitussin) 10 ml GT 1000,1600,2200,0400 [facility] Last Admin: 08/24/19 03:52 Dose: 10 ml Documented by: Sodium Chloride () 250 mls @ 15 mls/hr IV .[id number] PRN PRN Reason: Saline Flush Sodium Chloride () 250 mls @ 15 mls/hr IV .[id number] PRN PRN Reason: Additional IVPB Infusion Dexmedetomidine HCl 1,000 mcg/ (Sodium Chloride) 250 mls @ 35.363 mls/hr CONT INF .Q7H5M [facility]; Protocol Last Titration: 08/24/19 08:45 Dose: 0.5 mcg/kg/hr, 11.8 mls/hr Documented by: Insulin Human Lispro (Humalog Kwikpen (Bkc)) 0 unit SC 1000,1600,2200,0400 [facility]; Protocol Last Admin: 08/24/19 03:52 Dose: Not Given Documented by: Lansoprazole (Lansoprazole) 15 mg GT BID [facility] Last Admin: 08/23/19 20:09 Dose: 15 mg Documented by: Levothyroxine Sodium (Synthroid) 100 mcg GT DAILY [facility] Last Admin: 08/23/19 08:28 Dose: 100 mcg Documented by: Ondansetron HCl (Zofran) 4 mg IV Q8H PRN PRN PRN Reason: NAUSEA/VOMITING Phenytoin Sodium (Dilantin) 200 mg GT DAILY [facility] Last Admin: 08/23/19 08:26 Dose: 200 mg Documented by: Sodium Chloride () 10 - 40 ml IV UD PRN PRN Reason: SALINE FLUSH Last Admin: 08/23/19 03:22 Dose: 40 ml Documented by: Medical Necessity - Tobacco Use Smoking Status: Never smoker Route of nutrition/ use of supplements: [] Nutritional Intake: [] IV Site: [] Neil Catheter: [] - Assessment/Plan Antibiotics: [] Assessment/Plan: [] Active and Suspected Problems (Last Reviewed 08/13/19 @ 01:[address] Matt Espinoza MD) Pneumonia (Acute) Hypoxia (Acute) COVID-19 (Acute) SARS-associated coronavirus infection (Acute) COVID with hypoxic resp failure - s/p convalescent plasma 08/12. MRSA screen neg. Completed short course empiric zosyn. Cxs neg. O2 much better, fever resolved now. Now extubated this AM 62. LI resolved. Will follow, d/w Dr. Navarro.
[2019-08-24] MEDS: Enoxaparin 100 MG/ML Syringe 90 MG SC ×2 (10:11→21:11)
[2019-08-24] MEDS: Furosemide 40 MG/4 ML Vial IV ×2 (10:11→18:14)
--- NOTE | 2019-08-24 10:40 | CASEMGMT ---
Addendum entered by Chelly Vargas 08/24/19 11:54: MAGUI received call from Marva in TCU stating pt will need two negative COVID tests to admit to TCU. Original Note: Social Work Note SW participated in ICU rounds. Pt was extubated today. From previous notes, pt's is adamant that if pt needs SNF she wants pt to go to TCU. MAGUI updated staff that pt will need negative COVID test and will not be able to go to TCU if pt is on dialysis. Per physician, they will resend COVID test in the next few days to get new results and pt will not need to be on dialysis at discharge. MAGUI placed a call to Marva in TCU and updated her that pt will be retested for COVID in the next few days and pt will not be on dialysis at discharge, to keep pt on TCU list. Pt has [employer] insurance, will also need pre-cert. Plan: TCU pending pre-cert. TCU will need negative COVID test before being able to admit pt. Chelly Vargas SOCIAL SERVICES ANALYST, RECORD CENTER SPECIALIST
[2019-08-24 11:24] LABS: Pathologist Review Reviewed
[2019-08-24 11:32] LABS: Pathologist Review Reviewed
--- NOTE | 2019-08-24 11:54 | PN.RENAL_ITS ---
Patient Problems: Active and Suspected Problems (Last Reviewed 08/13/19 @ 01:[address] Matt Espinoza MD) Pneumonia (Acute) Hypoxia (Acute) COVID-19 (Acute) SARS-associated coronavirus infection (Acute) LI (acute kidney injury) (Acute) Subjective: EXTUBATED THIS AM - Physical Exam Vitals/I&O's: Vital Signs Temp Pulse Resp BP Pulse Ox 98.6 F 49 L 24 H 128/59 H 99 08/24/19 10:00 08/24/19 10:00 08/24/19 10:00 08/24/19 10:00 08/24/19 10:00 Oxygen Flow Rate (L/min) 2 Oxygen Delivery Method Nasal Cannula Weight: 94.3 kg Body Mass Index (BMI) 31.1 Intake and Output for Last 24 Hours 08/22/19 08/23/19 08/24/19 23:59 23:59 23:59 Intake Total 3306.42 / 3332.52 3644.89 / 3991.29 1308.52 / 1308.52 Output Total 2125 / 2125 4325 / 5325 1600 / 1600 Balance 1181.42 / 1207.52 -680.11 / -1333.71 -291.48 / -291.48 General: Alert, Cooperative HEENT: Atraumatic, PERRLA, EOMI, Normocephalic Neck: Supple, No JVD, Negative Carotid Bruits Lungs: Clear to auscultation, Normal air movement Cardiovascular: Regular rate, No murmurs Abdomen: Bowel Sounds Present, Soft, Non Tender Extremities: No edema, Capillary Refill Less than 3 Seconds Skin: No rashes, No breakdown Musculoskeletal: No Tenderness to Palpation of Joints or Extremities Neurological: Cranial nerves II-XII grossly intact Psych/Mental Status: Normal Affect, Appropriate Microbiology Past 72 Hours 08/17/19 16:45 Blood Culture (Wb) - Central Line Blood Culture - Final No growth in 5 days. 08/17/19 11:50 Blood Culture (Wb) - Right Hand Blood Culture - Final No growth in 5 days. Laboratory Results 08/21/19 03:25: Diff Path Review Reviewed 08/22/19 03:20: Diff Path Review Reviewed 08/23/19 03:25: Diff Path Review Reviewed 08/23/19 16:09: POC Glucose 138 H 08/23/19 21:34: POC Glucose 131 H 08/24/19 03:47: POC Glucose 140 H 08/24/19 03:50: APTT 93.1 H* 08/24/19 03:50: WBC 16.7 H, RBC 3.48 L, Hgb 11.9 L, Hct 36.3 L, MCV 104.3 H, MCH 34.2 H, MCHC 32.8, RDW Std Deviation 58.9 H, RDW Coeff of Nacho 15.3 H, Plt Count 575 H, MPV 10.2, Neut % (Auto) Not Reportable, Absolute Neuts (auto) 13.4 H, Absolute Lymphs (auto) 1.00, Total Counted 100, Neutrophils % (Manual) 68, Band Neutrophils % 12 H, Lymphocytes % (Manual) 6 L, Monocytes % (Manual) 7, Eosinophils % (Manual) 1, Metamyelocytes % 6 H, Diff Path Review Reviewed, Platelet Estimate SLT INC, Polychromasia RARE, Anisocytosis 1+, Macrocytosis 1+ 08/24/19 03:50: Sodium 144, Potassium 3.6, Chloride 109 H, Carbon Dioxide 27.0, Anion Gap 8, BUN 77 H, Creatinine 1.11, Estim Creat Clear Calc 56.63, Est GFR (MDRD) Af Amer 82, Est GFR (MDRD) Non-Af 68, BUN/Creatinine Ratio 69.4 H, Glucose 149 H, Calcium 8.3 L Current Medications Acetaminophen (Tylenol Liquid) 650 mg GT Q4H PRN PRN PRN Reason: Pain Score 1-10/Temp > 100.7 F Last Admin: 08/19/19 05:02 Dose: 650 mg Documented by: Aspirin (Aspirin, Baby) 81 mg GT DAILY@1000 [facility] Last Admin: 08/23/19 08:28 Dose: 81 mg Documented by: Dextrose (D50w Syringe) 0 gm IV X1 PRN; Protocol PRN Reason: Hypoglycemia Enoxaparin Sodium (Lovenox) 90 mg SC Q12@0600,1800 [facility] Last Admin: 08/24/19 10:11 Dose: 90 mg Documented by: Furosemide (Lasix) 40 mg IV BID@1000,1800 [facility] Last Admin: 08/24/19 10:11 Dose: 40 mg Documented by: Glucagon () 1 mg IM .X1 PRN PRN Reason: Hypoglycemia Guaifenesin (Robitussin) 10 ml GT 1000,1600,2200,0400 [facility] Last Admin: 08/24/19 10:00 Dose: Not Given Documented by: Sodium Chloride () 250 mls @ 15 mls/hr IV .[id number] PRN PRN Reason: Saline Flush Sodium Chloride () 250 mls @ 15 mls/hr IV .[id number] PRN PRN Reason: Additional IVPB Infusion Dexmedetomidine HCl 1,000 mcg/ (Sodium Chloride) 250 mls @ 35.363 mls/hr CONT INF .Q7H5M [facility]; Protocol Last Titration: 08/24/19 11:00 Dose: 0.3 mcg/kg/hr, 7.1 mls/hr Documented by: Lansoprazole (Lansoprazole) 15 mg GT BID [facility] Last Admin: 08/23/19 20:09 Dose: 15 mg Documented by: Levothyroxine Sodium (Synthroid) 100 mcg GT DAILY [facility] Last Admin: 08/23/19 08:28 Dose: 100 mcg Documented by: Ondansetron HCl (Zofran) 4 mg IV Q8H PRN PRN PRN Reason: NAUSEA/VOMITING Phenytoin Sodium (Dilantin) 200 mg GT DAILY [facility] Last Admin: 08/23/19 08:26 Dose: 200 mg Documented by: Sodium Chloride () 10 - 40 ml IV UD PRN PRN Reason: SALINE FLUSH Last Admin: 08/23/19 03:22 Dose: 40 ml Documented by: Medical Necessity - Tobacco Use Smoking Status: Never smoker Assessment/Plan All Active Problems (Last Reviewed 08/13/19 @ 01:[address] Matt Espinoza MD) Pneumonia (Acute) Hypoxia (Acute) COVID-19 (Acute) SARS-associated coronavirus infection (Acute) LI (acute kidney injury) (Acute) LI. normal baseline. zarco in place, hence obstructive unlikely. UA reviewed, consistent with Covid related LI. oliguria with volume overload. received 4 HD treatments so far remarkably well today extubated. BP is ok urine output is ok. cr is ok continue lasix hold off HD. if he remains stable HD line can come out tomorrow
[2019-08-25] VITALS (27 sets, daily range): BP systolic 100–172; BP diastolic 49–113; PULSE 59–83; RESP 10–30; TEMP 37–37.4; O2SAT 76–99
[2019-08-25 05:30] LABS: Mean Corp Hgb Conc 33.3 g/dL (32-36); Mean Corpuscular Hgb 33.9 pg (27.0-32.0); Mean Corpuscular Volume 101.6 fL (80-94); Mean Platelet Vol. 10.2 fl (6.2-12.0); POSITIVE COUNT YES; POSITIVE MORPHOLOGY YES; RBC Distribution Width CV 15.2 % (11.6-14.6); RBC Distribution Width SD 56.3 fl (35.1-43.9); Red Blood Count 3.84 M/mm3 (4.6-6.2); White Blood Count 17.9 K/mm3 (4.4-11.0)
[2019-08-25 05:32] LABS: Differential Indicated MANUAL DIFF; Platelet Count 755 K/mm3 (150-450)
[2019-08-25 05:43] LABS: Anion Gap 10 (5-15); BUN 72 mg/dL (7-18); BUN/Creat Ratio 57.1 RATIO (10-20); Calcium,Total 8.5 mg/dL (8.5-10.1); Chloride 112 mmol/L (98-107); Creatinine, Serum 1.26 mg/dL (0.70-1.30); EST Glomerular Filtration Rate 59 mL/min (>60); Est Glom Filt Rate - Afr Amer 71 mL/min (>60); Estimated Creatinine Clearance 49.89 ml/min; Glucose 127 mg/dL (74-106); Potassium 3.6 mmol/L (3.5-5.1); Sodium Level 148 mmol/L (136-145)
--- NOTE | 2019-08-25 06:14 | PN_ITS ---
Subjective: The patient was seen and examined at the bedside this morning. Events from the last 24 hours have been reviewed. The patient is currently afebrile, hemodynamically stable and maintaining appropriate oxygen saturations on room air. The patient has done well from a respiratory perspective following extubation yesterday. The patient was evaluated by speech therapy last evening who recommended continued n.p.o. status with plans for reevaluation today. The patient is currently documented to be overall net +6.3 L for the hospital admission. Overnight, the patient was noted to be confrontational with nursing staff. He remains confused. Of note, the patient did develop right-sided erythema and swelling which involved his upper extremity, neck and right face last evening. The exact precipitating etiology was unclear. Orders were given for nursing staff to remove the patient's temporary hemodialysis catheter. Objective: The patient's most recent lab work, culture data and imaging studies have all been personally reviewed. CTA chest revealed suboptimal opacification of the bilateral pulmonary arteries. No significant PE was identified. However, bilateral groundglass changes were present, most pronounced in the right lower lobe. Coronavirus PCR was positive on August 06. Respiratory viral panel was neg ative. Strep and urine Legionella antigens were negative. General: Alert, No apparent distress, Confused, Disoriented HEENT: Atraumatic, Normocephalic, - Oral: No Gingival or Mucosal Lesions/ Ulcerations Neck: Supple, No Nodes, Trachea Midline Lungs: No rhonchi, No wheeze, No rales, Diminished Cardiovascular: Regular rate, Regular Rhythm, Normal S1, Normal S2 Abdomen: Bowel Sounds Present, Soft, Non Tender Extremities: No clubbing, No cyanosis, Edema - Trace LE Skin: No breakdown Musculoskeletal: No Muscle Wasting Lymphatic: No Cervical, Supraclavicular, or Inguinal Adenopathy Neurological: Neuro grossly intact Psych/Mental Status: Impulsive, Restless Vital Signs Temp Pulse Resp BP Pulse Ox 98.9 F 83 20 H 133/49 H 94 08/25/19 03:00 08/25/19 04:00 08/25/19 03:00 08/25/19 03:00 08/25/19 03:00 Oxygen Flow Rate (L/min) 2 Oxygen Delivery Method Room Air Weight: 196 lb 6.91 oz Body Mass Index (BMI) 31.1 Intake and Output for Last 24 Hours 0608/24/19 08/25/19 23:59 23:59 23:59 Intake Total 3644.89 / 3991.29 1312.08 / 1312.08 Output Total 4325 / 5325 3375 / 3825 875 / 875 Balance -680.11 / -1333.71 -2062.92 / -2512.92 -875 / -875 Labs (Last 48 Hours) 08/21/19 08/22/19 08/23/19 03:25 03:20 03:25 WBC RBC Hgb Hct MCV MCH MCHC RDW Std Deviation RDW Coeff of Nacho Plt Count MPV Neut % (Auto) Absolute Neuts (auto) Absolute Lymphs (auto) Total Counted Neutrophils % (Manual) Band Neutrophils % Lymphocytes % (Manual) Monocytes % (Manual) Eosinophils % (Manual) Metamyelocytes % Diff Path Review Reviewed Reviewed Reviewed Platelet Estimate Polychromasia Anisocytosis Macrocytosis APTT Sodium Potassium Chloride Carbon Dioxide Anion Gap BUN Creatinine Estim Creat Clear Calc Est GFR (MDRD) Af Amer Est GFR (MDRD) Non-Af BUN/Creatinine Ratio Glucose Calcium POC Glucose 08/23/19 08/23/19 08/23/19 08:33 16:09 21:34 WBC RBC Hgb Hct MCV MCH MCHC RDW Std Deviation RDW Coeff of Nacho Plt Count MPV Neut % (Auto) Absolute Neuts (auto) Absolute Lymphs (auto) Total Counted Neutrophils % (Manual) Band Neutrophils % Lymphocytes % (Manual) Monocytes % (Manual) Eosinophils % (Manual) Metamyelocytes % Diff Path Review Platelet Estimate Polychromasia Anisocytosis Macrocytosis APTT Sodium Potassium Chloride Carbon Dioxide Anion Gap BUN Creatinine Estim Creat Clear Calc Est GFR (MDRD) Af Amer Est GFR (MDRD) Non-Af BUN/Creatinine Ratio Glucose Calcium POC Glucose 146 H 138 H 131 H 08/24/19 08/24/19 08/24/19 03:47 03:50 03:50 WBC 16.7 H RBC 3.48 L Hgb 11.9 L Hct 36.3 L MCV 104.3 H MCH 34.2 H MCHC 32.8 RDW Std Deviation 58.9 H RDW Coeff of Nacho 15.3 H Plt Count 575 H MPV 10.2 Neut % (Auto) Not Reportable Absolute Neuts (auto) 13.4 H Absolute Lymphs (auto) 1.00 Total Counted 100 Neutrophils % (Manual) 68 Band Neutrophils % 12 H Lymphocytes % (Manual) 6 L Monocytes % (Manual) 7 Eosinophils % (Manual) 1 Metamyelocytes % 6 H Diff Path Review Reviewed Platelet Estimate SLT INC Polychromasia RARE Anisocytosis 1+ Macrocytosis 1+ APTT 93.1 H* Sodium Potassium Chloride Carbon Dioxide Anion Gap BUN Creatinine Estim Creat Clear Calc Est GFR (MDRD) Af Amer Est GFR (MDRD) Non-Af BUN/Creatinine Ratio Glucose Calcium POC Glucose 140 H 08/24/19 08/25/19 08/25/19 03:50 05:15 05:15 WBC 17.9 H RBC 3.84 L Hgb 13.0 Hct 39.0 L MCV 101.6 H MCH 33.9 H MCHC 33.3 RDW Std Deviation 56.3 H RDW Coeff of Nacho 15.2 H Plt Count 755 H* MPV 10.2 Neut % (Auto) Not Reportable Absolute Neuts (auto) Pending Absolute Lymphs (auto) Total Counted Neutrophils % (Manual) Band Neutrophils % Lymphocytes % (Manual) Monocytes % (Manual) Eosinophils % (Manual) Metamyelocytes % Diff Path Review Platelet Estimate Polychromasia Anisocytosis Macrocytosis APTT Sodium 144 148 H Potassium 3.6 3.6 Chloride 109 H 112 H Carbon Dioxide 27.0 26.0 Anion Gap 8 10 BUN 77 H 72 H Creatinine 1.11 1.26 Estim Creat Clear Calc 56.63 49.89 Est GFR (MDRD) Af Amer 82 71 Est GFR (MDRD) Non-Af 68 59 L BUN/Creatinine Ratio 69.4 H 57.1 H Glucose 149 H 127 H Calcium 8.3 L 8.5 POC Glucose Microbiology 08/17/19 16:45 Blood Culture (Wb) - Central Line Blood Culture - Final No growth in 5 days. Clinical Impression(s) from Imaging Studies Chest X-Ray 08/12/19 22:50 IMPRESSION: Worsening of bilateral pulmonary infiltrates consistent with nonspecific multifocal pneumonia. Electronically Signed: Eriberto Smalls MD at 23:13 EDT , Service support , Chest X-Ray 05/23/20 05:20 IMPRESSION: 1. Suggest advancing endotracheal tube approximately 2 or 3 cm. 2. Unchanged appearance to bilateral multifocal airspace disease consistent with pneumonia. Electronically Signed: Shamika Mistry MD at 8:34 EDT , Service support , Chest X-Ray 08/14/19 07:54 IMPRESSION: 1. Appropriate positioning of endotracheal and enteric tubes. 2. Extensive bilateral heterogeneous airspace consolidations consistent with multifocal pneumonia. There appears to be increasing left basilar airspace consolidation since previous radiograph. Electronically Signed: Shamika Mistry MD at 9:58 EDT , Service support , Chest X-Ray 08/17/19 13:00 IMPRESSION: 1. Left central venous catheter is in the superior vena cava. No pneumothorax. 2. Endotracheal and nasogastric tubes unchanged. 3. Improved aeration at the lung bases. The bilateral infiltrates are otherwise stable. Electronically Signed: Alfonzo Lucero MD at 13:28 EDT , Service support , Chest X-Ray 08/19/19 13:25 IMPRESSION: Progressive bilateral infiltrates. The tip of the right dialysis catheter is at the junction of superior vena cava and right atrium. Electronically Signed: Abdulaziz Romero, at 13:53 EDT , Service support , Chest X-Ray 08/23/19 09:56 IMPRESSION: All the support tubes are in good position. Progressive infiltrate seen in the peripheral aspect of the left lung as well as at the right lung base. Improved aeration of the right upper lobe. Electronically Signed: Abdulaziz Romero, at 12:28 EDT , Service support , Medical Necessity - Tobacco Use Smoking Status: Never smoker Assessment/Plan All Active Problems (Last Reviewed 08/13/19 @ 01:[address] Matt Espinoza MD) Pneumonia (Acute) Hypoxia (Acute) COVID-19 (Acute) SARS-associated coronavirus infection (Acute) LI (acute kidney injury) (Acute) RECOMMENDATIONS: 1. Wean supplemental oxygen to maintain saturations at or above 90%. 2. Speech therapy reevaluation prior to advancing diet. 3. PRN Haldol. 4. Resend coronavirus PCR testing to assist with disposition planning. 5. Continue scheduled Lasix as tolerated. 6. Continue Lovenox therapy. 7. Encourage incentive spirometer use and mobilize patient as tolerated. IMPRESSIONS: 1. Acute hypoxemic respiratory failure secondary to COVID-19 infection The patient was evaluated in the emergency department on August 06 with a CTA chest which revealed bilateral groundglass changes. Subsequent COVID testing was positive. Although the patient was initially discharged home, he experienced worsening shortness of breath and hypoxemia, which prompted his hospital admission. Repeat chest imaging did reveal progressive bilateral infiltrates. The patient was initially placed on noninvasive positive pressure ventilatory support but decompensated eventually requiring intubation. The patient did receive convalescent plasma ([place] [id number]) on the evening of August 12. The patient has completed a course of Zosyn under the discretion of infectious diseases. The patient demonstrated slow clinical improvement and was able to be extubated on the morning of August 23. Plan at this time will include weaning of his supplemental oxygen to maintain saturations at or above 90%. Speech therapy to reevaluate the patient today prior to advancing diet. Continue systemic anticoagulation with Lovenox as ordered. Encourage incentive spirometer use and mobilize patient as tolerated. 2. Acute kidney injury Resolved. Likely related to ATN in the setting of #1, along with hemodynamic instability which was generated as a consequence of sedative utilization. Urine output has improved. Continue scheduled Lasix therapy as ordered. 3. Unspecified seizure disorder/hypothyroidism/hypertension/obesity Complicates care, management, recovery and prognosis. Continue home medications as indicated. Physical therapy to continue to work with the patient. This note was generated with [employer] software. It may contain incorrect words, spelling, and punctuation that were not noted in checking the note before signing. Inpatient E&M: [id number] [facility] L[facility]
[2019-08-25 06:18] LABS: Total Cells Counted 100 (MANUAL DIFF)
[2019-08-25 06:19] LABS: Absolute Lymphocyte Count 0.72 X10^3/uL (0.83-4.51); Absolute Neutrophil Count 15.6 X10^3/uL (2.0-7.7); Lymphocyte 4 % (19-41); Lymphocyte # 0.72 X10^3/ul (4.0); Monocyte 9 % (0-10); Neutrophil-Band 2 % (0-5); Neutrophil-Segmented 85 % (47-70)
[2019-08-25] MEDS: Haloperidol Lactate 5 MG/ML Vial 2.5 MG IV (08:37)
--- NOTE | 2019-08-25 09:25 | CASEMGMT ---
Social Work Note SW participated in ICU rounds. Pt was given Haldol this morning and had to be restrained. MAGUI updated staff that TCU will need two negative COVID tests and pt will need to be Haldol/restraint/sitter free for 24 hours. MAGUI placed a call to pt's Ashly Jauregui and left message that the plan is TCU pending negative COVID tests, insurance approval and being restraint free for 24 hours. Plan: TCU pending negative COVID tests, pending pre-cert and pending pt being Haldol/restraint/sitter free for 24 hours. Chelly Vargas BLANKING PRESS OPERATOR, ENGINEERING INTERN
--- NOTE | 2019-08-25 10:30 | PN_ITS ---
Patient Problems: Active and Suspected Problems (Last Reviewed 08/13/19 @ 01:[address] Matt Espinoza MD) Pneumonia (Acute) Hypoxia (Acute) COVID-19 (Acute) SARS-associated coronavirus infection (Acute) LI (acute kidney injury) (Acute) Subjective: Patient seen and examined. He was lying calmly in bed. Per discussion with his nurse, patient was noted to be agitated yesterday and had to be put in restraints. He has remained hemodynamically stable though he was a bit tachypneic today. He is on 2 L of oxygen. Sodium is 148. Cell count is 17.9 and platelets have gone up to 755. Hemoglobin is 13. Vitals/I&O's: Vital Signs Temp Pulse Resp BP Pulse Ox 98.9 F 78 22 H 162/83 H 96 08/25/19 06:00 08/25/19 06:00 08/25/19 06:00 08/25/19 06:00 08/25/19 06:00 Oxygen Flow Rate (L/min) 2 Oxygen Delivery Method Room Air Weight: 196 lb 6.91 oz Body Mass Index (BMI) 31.1 Intake and Output for Last 24 Hours 08/23/19 08/24/19 08/25/19 23:59 23:59 23:59 Intake Total 3644.89 / 3991.29 1312.08 / 1312.08 Output Total 4325 / 5325 3375 / 3825 875 / 875 Balance -680.11 / -1333.71 -2062.92 / -2512.92 -875 / -875 General: Alert, Cooperative, No apparent distress, HEENT: Atraumatic, PERRLA, EOMI, Normocephalic Oral: Dry Mucosa Neck: Supple, No JVD, Negative Carotid Bruits Lungs: Clear to auscultation, Normal air movement Cardiovascular: Regular rate, Regular Rhythm, Normal S1, Normal S2, No murmurs Abdomen: Bowel Sounds Present, Soft, Non Tender, Non-Distended, No Hepato- splenomegaly Extremities: No clubbing, No cyanosis, No edema, Capillary Refill Less than 3 Seconds Skin: No rashes, No breakdown Musculoskeletal: No Tenderness to Palpation of Joints or Extremities Lymphatic: No Cervical, Supraclavicular, or Inguinal Adenopathy Neurological: Cranial nerves II-XII grossly intact Psych/Mental Status: Flat Affect Microbiology Past 72 Hours 08/17/19 16:45 Blood Culture (Wb) - Central Line Blood Culture - Final No growth in 5 days. 08/17/19 11:50 Blood Culture (Wb) - Right Hand Blood Culture - Final No growth in 5 days. Laboratory Results 08/23/19 03:25: Diff Path Review Reviewed 08/24/19 03:50: Diff Path Review Reviewed 08/25/19 05:15: WBC 17.9 H, RBC 3.84 L, Hgb 13.0, Hct 39.0 L, MCV 101.6 H, MCH 33.9 H, MCHC 33.3, RDW Std Deviation 56.3 H, RDW Coeff of Nacho 15.2 H, Plt Count 755 H*, MPV 10.2, Neut % (Auto) Not Reportable, Absolute Neuts (auto) 15.6 H, Absolute Lymphs (auto) 0.72 L, Total Counted 100, Neutrophils % (Manual) 85 H, Band Neutrophils % 2, Lymphocytes % (Manual) 4 L, Monocytes % (Manual) 9, Diff Path Review May foll 08/25/19 05:15: Sodium 148 H, Potassium 3.6, Chloride 112 H, Carbon Dioxide 26.0, Anion Gap 10, BUN 72 H, Creatinine 1.26, Estim Creat Clear Calc 49.89, Est GFR (MDRD) Af Amer 71, Est GFR (MDRD) Non-Af 59 L, BUN/Creatinine Ratio 57.1 H, Glucose 127 H, Calcium 8.5 Current Medications Acetaminophen (Tylenol Liquid) 650 mg PO Q4H PRN PRN PRN Reason: Pain Score 1-10/Temp > 100.7 F Aspirin (Aspirin, Baby) 81 mg PO DAILY@1000 [facility] Last Admin: 08/25/19 09:39 Dose: Not Given Documented by: Dextrose (D50w Syringe) 0 gm IV X1 PRN; Protocol PRN Reason: Hypoglycemia Enoxaparin Sodium (Lovenox) 90 mg SC Q12@0600,1800 [facility] Last Admin: 08/24/19 21:11 Dose: 90 mg Documented by: Furosemide (Lasix) 40 mg IV BID@1000,1800 [facility] Last Admin: 08/24/19 18:14 Dose: 40 mg Documented by: Glucagon () 1 mg IM .X1 PRN PRN Reason: Hypoglycemia Guaifenesin (Robitussin) 10 ml PO 1000,1600,2200,0400 [facility] Last Admin: 08/25/19 09:39 Dose: Not Given Documented by: Sodium Chloride () 250 mls @ 15 mls/hr IV .[id number] PRN PRN Reason: Saline Flush Sodium Chloride () 250 mls @ 15 mls/hr IV .[id number] PRN PRN Reason: Additional IVPB Infusion Phenytoin Sodium 200 mg/ (Sodium Chloride) 104 mls @ 180 mls/hr IV DAILY LEONARD Lansoprazole (Lansoprazole) 15 mg PO BID [facility] Last Admin: 08/25/19 09:39 Dose: Not Given Documented by: Levothyroxine Sodium (Synthroid) 100 mcg PO DAILY [facility] Last Admin: 08/25/19 09:40 Dose: Not Given Documented by: Ondansetron HCl (Zofran) 4 mg IV Q8H PRN PRN PRN Reason: NAUSEA/VOMITING Sodium Chloride () 10 - 40 ml IV UD PRN PRN Reason: SALINE FLUSH Last Admin: 08/23/19 03:22 Dose: 40 ml Documented by: Medical Necessity - Tobacco Use Smoking Status: Never smoker Assessment/Plan All Active Problems (Last Reviewed 08/13/19 @ 01:[address] Matt Espinoza MD) Pneumonia (Acute) Hypoxia (Acute) COVID-19 (Acute) SARS-associated coronavirus infection (Acute) LI (acute kidney injury) (Acute) 1. Acute hypoxic respiratory failure due to COVID 19 infection * was extubated yesterday. * on 2L of oxygen by nasal canula * critical care on board * has completed a course of zosyn and also received convalescent plasma * on breathing treatment with bronchodilators. * titrate oxygen to maintain sats >90% * encourage incentive spirometer use * speech therapy to evaluate before diet is advanced * 2. COVID 19 infection * has completed a course of IV zosyn, adn also received convalescent plasma * on lovenox therapeutic dose * ID on board * 3. Nonstemi: * troponins peaked at 1.89. * 2D echo showed EF of 65% * was thought to be due to demand ischemia * on heparin and aspirin * further workup to be determined as per cardiology * 4. Bradycardia: * resolved. HR is now in the 70s * 5. LI * CR is now down to 1.26; he is making urine * nephrology on board 6. Hypothyroidism: On Synthroid. 7. Seizure disorder: Currently on phenytoin. Nutrition: On enteral feeding with vital AF at 65 mils per hour. Speech therapy to evaluate in order to advance diet PO GI prophylaxis: On lansoprazole DVT prophylaxis: on therapeutic lovenox Inpatient E&M: [id number] [facility] L3
[2019-08-25] MEDS: Enoxaparin 100 MG/ML Syringe 90 MG SC ×2 (10:53→18:16)
[2019-08-25] MEDS: Furosemide 40 MG/4 ML Vial IV ×2 (10:53→18:15)
--- NOTE | 2019-08-25 11:47 | PN.RENAL_ITS ---
Patient Problems: Active and Suspected Problems (Last Reviewed 08/13/19 @ 01:[address] Matt Espinoza MD) Pneumonia (Acute) Hypoxia (Acute) COVID-19 (Acute) SARS-associated coronavirus infection (Acute) LI (acute kidney injury) (Acute) Subjective: confused - Physical Exam Vitals/I&O's: Vital Signs Temp Pulse Resp BP Pulse Ox 98.9 F 78 22 H 162/83 H 96 08/25/19 06:00 08/25/19 06:00 08/25/19 06:00 08/25/19 06:00 08/25/19 06:00 Oxygen Flow Rate (L/min) 2 Oxygen Delivery Method Room Air Weight: 89.1 kg Body Mass Index (BMI) 31.1 Intake and Output for Last 24 Hours 08/23/19 08/24/19 08/25/19 23:59 23:59 23:59 Intake Total 3644.89 / 3991.29 1312.08 / 1312.08 105 / 105 Output Total 4325 / 5325 3375 / 3825 875 / 875 Balance -680.11 / -1333.71 -2062.92 / -2512.92 -770 / -770 General: Confused HEENT: Atraumatic, PERRLA, EOMI, Normocephalic Neck: Supple, No JVD, Negative Carotid Bruits Lungs: Clear to auscultation, Normal air movement Cardiovascular: Regular rate, No murmurs Abdomen: Bowel Sounds Present, Soft, Non Tender Extremities: No edema, Capillary Refill Less than 3 Seconds Skin: No rashes, No breakdown Musculoskeletal: No Tenderness to Palpation of Joints or Extremities Psych/Mental Status: Anxious Microbiology Past 72 Hours 08/17/19 16:45 Blood Culture (Wb) - Central Line Blood Culture - Final No growth in 5 days. 08/17/19 11:50 Blood Culture (Wb) - Right Hand Blood Culture - Final No growth in 5 days. Laboratory Results 08/25/19 05:15: WBC 17.9 H, RBC 3.84 L, Hgb 13.0, Hct 39.0 L, MCV 101.6 H, MCH 33.9 H, MCHC 33.3, RDW Std Deviation 56.3 H, RDW Coeff of Nacho 15.2 H, Plt Count 755 H*, MPV 10.2, Neut % (Auto) Not Reportable, Absolute Neuts (auto) 15.6 H, Absolute Lymphs (auto) 0.72 L, Total Counted 100, Neutrophils % (Manual) 85 H, Band Neutrophils % 2, Lymphocytes % (Manual) 4 L, Monocytes % (Manual) 9, Diff Path Review July08/25/19 05:15: Sodium 148 H, Potassium 3.6, Chloride 112 H, Carbon Dioxide 26 .0, Anion Gap 10, BUN 72 H, Creatinine 1.26, Estim Creat Clear Calc 49.89, Est GFR (MDRD) Af Amer 71, Est GFR (MDRD) Non-Af 59 L, BUN/Creatinine Ratio 57.1 H, Glucose 127 H, Calcium 8.5 08/25/19 10:15: COVID-19 (JONO) Pending Current Medications Acetaminophen (Tylenol Liquid) 650 mg PO Q4H PRN PRN PRN Reason: Pain Score 1-10/Temp > 100.7 F Aspirin (Aspirin, Baby) 81 mg PO DAILY@1000 COUNTS [facility]CLUDE 234 BEDS AT [facility] Last Admin: 08/25/19 09:39 Dose: Not Given Documented by: Dextrose (D50w Syringe) 0 gm IV X1 PRN; Protocol PRN Reason: Hypoglycemia Enoxaparin Sodium (Lovenox) 90 mg SC Q12@0600,1800 COUNTS [facility]CLUDE 234 BEDS AT THE [facility] Last Admin: 08/25/19 10:53 Dose: 90 mg Documented by: Furosemide (Lasix) 40 mg IV BID@1000,1800 COUNTS INCLUDE 234 BEDS AT THE [facility] Last Admin: 08/25/19 10:53 Dose: 40 mg Documented by: Glucagon () 1 mg IM .X1 PRN PRN Reason: Hypoglycemia Guaifenesin (Robitussin) 10 ml PO 1000,1600,2200,0400 COUNTS INCLUDE 234 BEDS AT THE [facility] Last Admin: 08/25/19 09:39 Dose: Not Given Documented by: Sodium Chloride () 250 mls @ 15 mls/hr IV .[id number] PRN PRN Reason: Saline Flush Last Infusion: 08/25/19 11:33 Dose: 15 mls/hr Documented by: Sodium Chloride () 250 mls @ 15 mls/hr IV .[id number] PRN PRN Reason: Additional IVPB Infusion Phenytoin Sodium 200 mg/ (Sodium Chloride) 104 mls @ 180 mls/hr IV DAILY COUNTS INCLUDE 234 BEDS AT THE [facility] Last Infusion: 08/25/19 11:33 Dose: Infused Documented by: Lansoprazole (Lansoprazole) 15 mg PO BID COUNTS INCLUDE 234 BEDS AT THE [facility] Last Admin: 08/25/19 09:39 Dose: Not Given Documented by: Levothyroxine Sodium (Synthroid) 100 mcg PO DAILY COUNTS INCLUDE 234 BEDS AT THE [facility] Last Admin: 08/25/19 09:40 Dose: Not Given Documented by: Ondansetron HCl (Zofran) 4 mg IV Q8H PRN PRN PRN Reason: NAUSEA/VOMITING Sodium Chloride () 10 - 40 ml IV UD PRN PRN Reason: SALINE FLUSH Last Admin: 08/23/19 03:22 Dose: 40 ml Documented by: Medical Necessity - Tobacco Use Smoking Status: Never smoker Assessment/Plan All Active Problems (Last Reviewed 08/13/19 @ 01:[address] Matt Espinoza MD) Pneumonia (Acute) Hypoxia (Acute) COVID-19 (Acute) SARS-associated coronavirus infection (Acute) LI (acute kidney injury) (Acute) LI. normal baseline. zarco in place, hence obstructive unlikely. UA reviewed, consistent with Covid related LI. oliguria with volume overload. received 4 HD treatments so far remarkably well today extubated. BP is ok urine output is ok. cr is ok no longer needs HD
[2019-08-25 12:30] LABS: Pathologist Review Reviewed
[2019-08-25] MEDS: guaiFENesin 10 ML UDC (200MG/10ML) PO (22:17)
[2019-08-25] MEDS: Lansoprazole 15 MG Capsule.DR PO (22:17)
[2019-08-26] VITALS (18 sets, daily range): BP systolic 102–171; BP diastolic 55–94; PULSE 53–74; RESP 16–24; TEMP 36–37.1; O2SAT 93–100
[2019-08-26 04:31] LABS: Absolute Lymphocyte Count 1.05 X10^3/uL (0.83-4.51); Absolute Neutrophil Count 13.6 X10^3/uL (2.0-7.7); Basophil# 0.14 X10^3/uL; Basophil% 0.8 % (0-1); Eosinophil# 0.11 X10^3/uL; Eosinophils% 0.7 % (0-5); Hematocrit 39.7 % (40-54); Hemoglobin 12.9 g/dL (13.0-16.5); Lymphocyte # 1.05 X10^3/ul (4.0); Lymphocyte % 6.3 % (19-41); Mean Corp Hgb Conc 32.5 g/dL (32-36); Mean Corpuscular Hgb 33.8 pg (27.0-32.0); Mean Corpuscular Volume 103.9 fL (80-94); Mean Platelet Vol. 10.1 fl (6.2-12.0); Monocyte# 0.95 X10^3/uL; Monocyte% 5.7 % (0-10); NRBC Flagged by Analyzer 0.1 % (0-5); Neutrophil # 13.57 X10^3/uL (2.7-7.7); Neutrophil % 81.9 % (47-70); POSITIVE COUNT YES; RBC Distribution Width CV 15.3 % (11.6-14.6); RBC Distribution Width SD 58.8 fl (35.1-43.9); Red Blood Count 3.82 M/mm3 (4.6-6.2); White Blood Count 16.6 K/mm3 (4.4-11.0)
[2019-08-26 04:32] LABS: Differential Indicated SCAN CRITERIA MET; Platelet Count 779 K/mm3 (150-450)
[2019-08-26 04:49] LABS: Anion Gap 6 (5-15); BUN 69 mg/dL (7-18); BUN/Creat Ratio 51.9 RATIO (10-20); Calcium,Total 8.8 mg/dL (8.5-10.1); Chloride 116 mmol/L (98-107); Creatinine, Serum 1.33 mg/dL (0.70-1.30); EST Glomerular Filtration Rate 55 mL/min (>60); Est Glom Filt Rate - Afr Amer 67 mL/min (>60); Estimated Creatinine Clearance 47.26 ml/min; Glucose 136 mg/dL (74-106); Potassium 3.6 mmol/L (3.5-5.1); Sodium Level 153 mmol/L (136-145)
[2019-08-26 04:55] LABS: Differential Comment SCANNED; Platelet Estimate MKD INC (ADEQ)
[2019-08-26] MEDS: guaiFENesin 10 ML UDC (200MG/10ML) PO ×2 (05:00→08:41)
[2019-08-26] MEDS: Enoxaparin 100 MG/ML Syringe 90 MG SC ×2 (05:00→17:18)
--- NOTE | 2019-08-26 06:54 | PCM.PN.INT ---
Subjective: The patient was seen and examined at the bedside this morning. Events from the last 24 hours have been reviewed. The patient is currently afebrile, hemodynamically stable and maintaining appropriate oxygen saturations on 2 L/min via nasal cannula. The patient has been out of restraints completely now since midday yesterday. He remains confused and disoriented, but is more directable this morning. The patient did pass his swallow evaluation yesterday by speech therapy. Orders for scheduled Seroquel were placed this morning. The patient's home hydroxyurea was also restarted. Unfortunately, repeat coronavirus testing completed yesterday was still positive. Objective: The patient's most recent lab work, culture data and imaging studies have all been personally reviewed. CTA chest revealed suboptimal opacification of the bilateral pulmonary arteries. No significant PE was identified. However, bilateral groundglass changes were present, most pronounced in the right lower lobe. Coronavirus PCR was positive on August 06. Respiratory viral panel was negative. Strep and urine Legionella antigens were negative. Repeat coronavirus PCR was positive on August 24. General: Alert, Cooperative, Confused, Disoriented HEENT: Atraumatic, Normocephalic Oral: Moist Mucosa Neck: Supple, No Nodes, Trachea Midline, - - Triple-lumen central venous catheter remains in place Lungs: No rhonchi, No wheeze, No rales, Diminished, - - No conversational dyspnea Cardiovascular: Regular rate, Regular Rhythm, Normal S1, Normal S2, No murmurs Abdomen: Bowel Sounds Present, Soft, Non Tender Extremities: No clubbing, No cyanosis Skin: No breakdown Musculoskeletal: No Muscle Wasting Lymphatic: No Cervical, Supraclavicular, or Inguinal Adenopathy Neurological: - - No focal neurological deficits. Psych/Mental Status: - - Intermittently restless but more directable today. Vital Signs Temp Pulse Resp BP Pulse Ox 98.5 F 53 L 16 158/67 H 99 08/26/19 06:00 08/26/19 06:00 08/26/19 06:00 08/26/19 06:00 08/26/19 06:00 Oxygen Flow Rate (L/min) 2 Oxygen Delivery Method Nasal Cannula Weight: 195 lb 1.745 oz Body Mass Index (BMI) 31.1 Intake and Output for Last 24 Hours 08/24/19 08/25/19 08/26/19 23:59 23:59 23:59 Intake Total 1312.08 / 1312.08 428 / 428 75 / 75 Output Total 3375 / 3825 2925 / 2925 300 / 300 Balance -2062.92 / -2512.92 -2497 / -2497 -225 / -225 Labs (Last 48 Hours) 08/23/19 08/24/19 08/25/19 03:25 03:50 05:15 WBC 17.9 H RBC 3.84 L Hgb 13.0 Hct 39.0 L MCV 101.6 H MCH 33.9 H MCHC 33.3 RDW Std Deviation 56.3 H RDW Coeff of Nacho 15.2 H Plt Count 755 H* MPV 10.2 Immature Gran % (Auto) Neut % (Auto) Not Reportable Lymph % (Auto) Charlton % (Auto) Eos % (Auto) Baso % (Auto) Absolute Neuts (auto) 15.6 H Absolute Lymphs (auto) 0.72 L Total Counted 100 Neutrophils % (Manual) 85 H Band Neutrophils % 2 Lymphocytes % (Manual) 4 L Monocytes % (Manual) 9 Nucleated RBC % Differential Comment Diff Path Review Reviewed Reviewed Reviewed Platelet Estimate Sodium Potassium Chloride Carbon Dioxide Anion Gap BUN Creatinine Estim Creat Clear Calc Est GFR (MDRD) Af Amer Est GFR (MDRD) Non-Af BUN/Creatinine Ratio Glucose Calcium COVID-19 (JONO) 08/25/19 08/25/19 08/26/19 05:15 10:15 04:20 WBC 16.6 H RBC 3.82 L Hgb 12.9 L Hct 39.7 L MCV 103.9 H MCH 33.8 H MCHC 32.5 RDW Std Deviation 58.8 H RDW Coeff of Nacho 15.3 H Plt Count 779 H* MPV 10.1 Immature Gran % (Auto) 4.600 H Neut % (Auto) 81.9 H Lymph % (Auto) 6.3 L Charlton % (Auto) 5.7 Eos % (Auto) 0.7 Baso % (Auto) 0.8 Absolute Neuts (auto) 13.6 H Absolute Lymphs (auto) 1.05 Total Counted Neutrophils % (Manual) Band Neutrophils % Lymphocytes % (Manual) Monocytes % (Manual) Nucleated RBC % 0.1 Differential Comment SCANNED Diff Path Review May foll Platelet Estimate [employer] Sodium 148 H Potassium 3.6 Chloride 112 H Carbon Dioxide 26.0 Anion Gap 10 BUN 72 H Creatinine 1.26 Estim Creat Clear Calc 49.89 Est GFR (MDRD) Af Amer 71 Est GFR (MDRD) Non-Af 59 L BUN/Creatinine Ratio 57.1 H Glucose 127 H Calcium 8.5 COVID-19 (JONO) Detected 08/26/19 04:20 WBC RBC Hgb Hct MCV MCH MCHC RDW Std Deviation RDW Coeff of Nacho Plt Count MPV Immature Gran % (Auto) Neut % (Auto) Lymph % (Auto) Charlton % (Auto) Eos % (Auto) Baso % (Auto) Absolute Neuts (auto) Absolute Lymphs (auto) Total Counted Neutrophils % (Manual) Band Neutrophils % Lymphocytes % (Manual) Monocytes % (Manual) Nucleated RBC % Differential Comment Diff Path Review Platelet Estimate Sodium 153 H Potassium 3.6 Chloride 116 H Carbon Dioxide 31.0 Anion Gap 6 BUN 69 H Creatinine 1.33 H Estim Creat Clear Calc 47.26 Est GFR (MDRD) Af Amer 67 Est GFR (MDRD) Non-Af 55 L BUN/Creatinine Ratio 51.9 H Glucose 136 H Calcium 8.8 COVID-19 (JONO) Clinical Impression(s) from Imaging Studies Chest X-Ray 08/12/19 22:50 IMPRESSION: Worsening of bilateral pulmonary infiltrates consistent with nonspecific multifocal pneumonia. Electronically Signed: Eriberto Smalls MD at 23:13 EDT , Service support , Chest X-Ray 08/14/19 05:20 IMPRESSION: 1. Suggest advancing endotracheal tube approximately 2 or 3 cm. 2. Unchanged appearance to bilateral multifocal airspace disease consistent with pneumonia. Electronically Signed: Shamika Mistry MD at 8:34 EDT , Service support , Chest X-Ray 08/14/19 07:54 IMPRESSION: 1. Appropriate positioning of endotracheal and enteric tubes. 2. Extensive bilateral heterogeneous airspace consolidations consistent with multifocal pneumonia. There appears to be increasing left basilar airspace consolidation since previous radiograph. Electronically Signed: Shamika Mistry MD at 9:58 EDT , Service support , Chest X-Ray 08/17/19 13:00 IMPRESSION: 1. Left central venous catheter is in the superior vena cava. No pneumothorax. 2. Endotracheal and nasogastric tubes unchanged. 3. Improved aeration at the lung bases. The bilateral infiltrates are otherwise stable. Electronically Signed: Alfonzo Lucero MD at 13:28 EDT , Service support , Chest X-Ray 08/19/19 13:25 IMPRESSION: Progressive bilateral infiltrates. The tip of the right dialysis catheter is at the junction of superior vena cava and right atrium. Electronically Signed: Abdulaziz Romero, at 13:53 EDT , Service support , Chest X-Ray 08/23/19 09:56 IMPRESSION: All the support tubes are in good position. Progressive infiltrate seen in the peripheral aspect of the left lung as well as at the right lung base. Improved aeration of the right upper lobe. Electronically Signed: Abdulaziz Romero, at 12:28 EDT , Service support , Medical Necessity - Tobacco Use Smoking Status: Never smoker Assessment/Plan All Active Problems (Last Reviewed 08/13/19 @ 01:[address] Matt Espinoza MD) Pneumonia (Acute) Hypoxia (Acute) COVID-19 (Acute) SARS-associated coronavirus infection (Acute) LI (acute kidney injury) (Acute) RECOMMENDATIONS: 1. Start scheduled Seroquel twice daily. 2. Restart home hydroxyurea. Transition from IV to p.o. Dilantin. 3. Given rising sodium and chloride levels, will start D5W. 4. Stop scheduled Lasix. 5. Continue Lovenox as ordered. 6. Encourage incentive spirometer use and mobilize patient as tolerated. 7. Physical therapy to continue to work with the patient. 8. Patient can be made PCU status. IMPRESSIONS: 1. Acute hypoxemic respiratory failure secondary to COVID-19 infection The patient was evaluated in the emergency department on August 06 with a CTA chest which revealed bilateral groundglass changes. Subsequent COVID testing was positive. Although the patient was initially discharged home, he experienced worsening shortness of breath and hypoxemia, which prompted his hospital admission. Repeat chest imaging did reveal progressive bilateral infiltrates. The patient was initially placed on noninvasive positive pressure ventilatory support but decompensated eventually requiring intubation. The patient did receive convalescent plasma ([place] [id number]) on the evening of August 12. The patient has completed a course of Zosyn under the discretion of infectious diseases. The patient demonstrated slow clinical improvement and was able to be extubated on the morning of August 23. Plan at this time will include weaning of his supplemental oxygen to maintain saturations at or above 90%. Continue systemic anticoagulation with Lovenox as ordered. Encourage incentive spirometer use and mobilize patient as tolerated. 2. Acute kidney injury Resolved. Likely related to ATN in the setting of #1, along with hemodynamic instability which was generated as a consequence of sedative utilization. Urine output has improved. Given that the patient's creatinine has been slowly increasing, will discontinue Lasix at this time. 3. Hypernatremia/hyperchloremia Gentle IV fluid hydration with D5W will be initiated today. Continue to monitor BMP daily. 4. Unspecified seizure disorder/hypothyroidism/hypertension/obesity Complicates care, management, recovery and prognosis. Continue home medications as indicated. Physical therapy to continue to work with the patient. This note was generated with [employer] dictation software. It may contain incorrect words, spelling, and punctuation that were not noted in checking the note before signing. Inpatient E&M: [id number] [facility] L3
[2019-08-26] MEDS: Hydroxyurea 500 MG Capsule PO ×2 (08:41→21:30)
[2019-08-26] MEDS: QUEtiapine 25 MG Tablet 50 MG PO ×2 (08:41→21:30)
[2019-08-26] MEDS: Phenytoin Na 100 MG Capsule 200 MG PO (08:41)
[2019-08-26] MEDS: 0.9% Saline Lock 10 ML Syringe IV ×2 (08:42→21:36)
[2019-08-26] MEDS: Lansoprazole 15 MG Capsule.DR PO (08:42)
[2019-08-26] MEDS: Aspirin 81 MG TAB.CHEW PO (08:42)
--- NOTE | 2019-08-26 10:07 | PCM.PN.ID ---
Patient Problems: Active and Suspected Problems (Last Reviewed 08/13/19 @ 01:[address] Matt Espinoza MD) Pneumonia (Acute) Hypoxia (Acute) COVID-19 (Acute) SARS-associated coronavirus infection (Acute) LI (acute kidney injury) (Acute) Subjective: Feeling ok, no fever, denies SOB. Wants to get out of bed. - Physical Exam Vitals/I&O's: Vital Signs Temp Pulse Resp BP Pulse Ox 98.4 F 65 20 H 102/62 97 08/26/19 07:00 08/26/19 07:01 08/26/19 07:00 08/26/19 07:00 08/26/19 08:53 Oxygen Flow Rate (L/min) 2 Oxygen Delivery Method Nasal Cannula Weight: 88.5 kg Body Mass Index (BMI) 31.1 Intake and Output for Last 24 Hours 08/24/19 08/25/19 08/26/19 23:59 23:59 23:59 Intake Total 1312.08 / 1312.08 428 / 428 75 / 75 Output Total 3375 / 3825 2925 / 2925 300 / 300 Balance -2062.92 / -2512.92 -2497 / -2497 -225 / -225 General: - - oriented x1 Lungs: Diminished Cardiovascular: Regular rate, Regular Rhythm Abdomen: Soft, Non Tender, Non-Distended Skin: No rashes Microbiology Past 72 Hours 08/17/19 16:45 Blood Culture (Wb) - Central Line Blood Culture - Final No growth in 5 days. Laboratory Results 08/25/19 05:15: Diff Path Review Reviewed 08/25/19 10:15: COVID-19 (JONO) Detected 08/26/19 04:20: WBC 16.6 H, RBC 3.82 L, Hgb 12.9 L, Hct 39.7 L, MCV 103.9 H, MCH 33.8 H, MCHC 32.5, RDW Std Deviation 58.8 H, RDW Coeff of Nacho 15.3 H, Plt Count 779 H*, MPV 10.1, Immature Gran % (Auto) 4.600 H, Neut % (Auto) 81.9 H, Lymph % (Auto) 6.3 L, Ness % (Auto) 5.7, Eos % (Auto) 0.7, Baso % (Auto) 0.8, Absolute Neuts (auto) 13.6 H, Absolute Lymphs (auto) 1.05, Nucleated RBC % 0.1, Differential Comment SCANNED, Diff Path Review July holly, Platelet Estimate MKD INC 08/26/19 04:20: Sodium 153 H, Potassium 3.6, Chloride 116 H, Carbon Dioxide 31.0, Anion Gap 6, BUN 69 H, Creatinine 1.33 H, Estim Creat Clear Calc 47.26, Est GFR (MDRD) Af Amer 67, Est GFR (MDRD) Non-Af 55 L, BUN/Creatinine Ratio 51.9 H, Glucose 136 H, Calcium 8.8 Current Medications Acetaminophen (Tylenol Liquid) 650 mg PO Q4H PRN PRN PRN Reason: Pain Score 1-10/Temp > 100.7 F Aspirin (Aspirin, Baby) 81 mg PO DAILY@1000 [facility] Last Admin: 08/26/19 08:42 Dose: 81 mg Documented by: Clotrimazole (Lotrimin) 1 applicatio TOPICAL TID [facility]; Protocol Last Admin: 08/26/19 05:00 Dose: 1 applicatio Documented by: Dextrose (D50w Syringe) 0 gm IV X1 PRN; Protocol PRN Reason: Hypoglycemia Enoxaparin Sodium (Lovenox) 90 mg SC Q12@0600,1800 [facility] Last Admin: 08/26/19 05:00 Dose: 90 mg Documented by: Glucagon () 1 mg IM .X1 PRN PRN Reason: Hypoglycemia Guaifenesin (Robitussin) 10 ml PO 1000,1600,2200,0400 [facility] Last Admin: 08/26/19 08:41 Dose: 10 ml Documented by: Hydroxyurea (Hydrea) 500 mg PO BID [facility] Last Admin: 08/26/19 08:41 Dose: 500 mg Documented by: Sodium Chloride () 250 mls @ 15 mls/hr IV .[id number] PRN PRN Reason: Saline Flush Last Infusion: 08/25/19 23:05 Dose: 0 mls/hr Documented by: Sodium Chloride () 250 mls @ 15 mls/hr IV .[id number] PRN PRN Reason: Additional IVPB Infusion Dextrose () 1,000 mls @ 100 mls/hr IV .Q10H [facility] Last Admin: 08/26/19 09:37 Dose: 100 mls/hr Documented by: Lansoprazole (Lansoprazole) 15 mg PO BID [facility] Last Admin: 08/26/19 08:42 Dose: 15 mg Documented by: Levothyroxine Sodium (Synthroid) 100 mcg PO DAILY [facility] Last Admin: 08/25/19 09:40 Dose: Not Given Documented by: Ondansetron HCl (Zofran) 4 mg IV Q8H PRN PRN PRN Reason: NAUSEA/VOMITING [facility]toin [facility]) [facility] Admin: 08/26/19 08:41 Dose: 200 mg Documented by: Quetiapine Fumarate (Seroquel) 50 mg PO BID [facility] Last Admin: 08/26/19 08:41 Dose: 50 mg Documented by: Sodium Chloride () 10 - 40 ml IV UD PRN PRN Reason: SALINE FLUSH Last Admin: 08/26/19 08:42 Dose: 30 ml Documented by: Medical Necessity - Tobacco Use Smoking Status: Never smoker Route of nutrition/ use of supplements: [] Nutritional Intake: [] IV Site: [] Neil Catheter: [] - Assessment/Plan Antibiotics: [] Assessment/Plan: [] Active and Suspected Problems (Last Reviewed 08/13/19 @ 01:[address] Matt Espinoza MD) Pneumonia (Acute) Hypoxia (Acute) COVID-19 (Acute) SARS-associated coronavirus infection (Acute) COVID with hypoxic resp failure - s/p convalescent plasma 08/12. MRSA screen neg. Completed short course empiric zosyn. Cxs neg. O2 much better, fever resolved now. Now extubated 08/23. LI resolved. Mental status improving. Repeat covid was (+). Will follow, d/w Dr. Navarro.
--- NOTE | 2019-08-26 10:28 | PN_ITS ---
Patient Problems: Active and Suspected Problems (Last Reviewed 08/13/19 @ 01:[address] Matt Espinoza MD) Pneumonia (Acute) Hypoxia (Acute) COVID-19 (Acute) SARS-associated coronavirus infection (Acute) LI (acute kidney injury) (Acute) Subjective: Patient seen and examined. Patient is quite tearful today as he says he now und erstands how sick he has. He feels like he has been about patient. He had no active complaints. He was started on Seroquel last night and was not as agitated. Labs and vitals reviewed. He has remained hemodynamically stable and is on 2 L of oxygen. Sodium is 153 and creatinine is 1.33 today. WBC 16.6 with hemoglobin of 12.9. Vitals/I&O's: Vital Signs Temp Pulse Resp BP Pulse Ox 98.5 F 74 21 H 128/94 H 97 08/26/19 08:00 08/26/19 08:00 08/26/19 08:00 08/26/19 08:00 08/26/19 08:53 Oxygen Flow Rate (L/min) 2 Oxygen Delivery Method Nasal Cannula Weight: 195 lb 1.745 oz Body Mass Index (BMI) 31.1 Intake and Output for Last 24 Hours 08/24/19 08/25/19 08/26/19 23:59 23:59 23:59 Intake Total 1312.08 / 1312.08 428 / 428 75 / 75 Output Total 3375 / 3825 2925 / 2925 300 / 300 Balance -2062.92 / -2512.92 -2497 / -2497 -225 / -225 General: Alert, Cooperative, No apparent distress, tearful HEENT: Atraumatic, PERRLA, EOMI, Normocephalic Oral: Dry Mucosa Neck: Supple, No JVD, Negative Carotid Bruits Lungs: Clear to auscultation, Normal air movement Cardiovascular: Regular rate, Regular Rhythm, Normal S1, Normal S2, No murmurs Abdomen: Bowel Sounds Present, Soft, Non Tender, Non-Distended, No Hepato- splenomegaly Extremities: No clubbing, No cyanosis, No edema, Capillary Refill Less than 3 Seconds Skin: No rashes, No breakdown Musculoskeletal: No Tenderness to Palpation of Joints or Extremities Lymphatic: No Cervical, Supraclavicular, or Inguinal Adenopathy Neurological: Cranial nerves II-XII grossly intact Psych/Mental Status: tearful Microbiology Past 72 Hours 08/17/19 16:45 Blood Culture (Wb) - Central Line Blood Culture - Final No growth in 5 days. Laboratory Results 08/25/19 05:15: Diff Path Review Reviewed 08/25/19 10:15: COVID-19 (JONO) Detected 08/26/19 04:20: WBC 16.6 H, RBC 3.82 L, Hgb 12.9 L, Hct 39.7 L, MCV 103.9 H, MCH 33.8 H, MCHC 32.5, RDW Std Deviation 58.8 H, RDW Coeff of Nacho 15.3 H, Plt Count 779 H*, MPV 10.1, Immature Gran % (Auto) 4.600 H, Neut % (Auto) 81.9 H, Lymph % (Auto) 6.3 L, Clarke % (Auto) 5.7, Eos % (Auto) 0.7, Baso % (Auto) 0.8, Absolute Neuts (auto) 13.6 H, Absolute Lymphs (auto) 1.05, Nucleated RBC % 0.1, Differential Comment SCANNED, Diff Path Review May foll, Platelet Estimate MKD INC 08/26/19 04:20: Sodium 153 H, Potassium 3.6, Chloride 116 H, Carbon Dioxide 31.0, Anion Gap 6, BUN 69 H, Creatinine 1.33 H, Estim Creat Clear Calc 47.26, Est GFR (MDRD) Af Amer 67, Est GFR (MDRD) Non-Af 55 L, BUN/Creatinine Ratio 51.9 H, Glucose 136 H, Calcium 8.8 Diagnostic Data Chest X-Ray 08/23/19 09:56 IMPRESSION: All the support tubes are in good position. Progressive infiltrate seen in the peripheral aspect of the left lung as well as at the right lung base. Improved aeration of the right upper lobe. Electronically Signed: Abdulaziz Romero, at 12:28 EDT , Service support , Current Medications Acetaminophen (Tylenol Liquid) 650 mg PO Q4H PRN PRN PRN Reason: Pain Score 1-10/Temp > 100.7 F Aspirin (Aspirin, Baby) 81 mg PO DAILY@1000 [facility] Last Admin: 08/26/19 08:42 Dose: 81 mg Documented by: Clotrimazole (Lotrimin) 1 applicatio TOPICAL TID [facility]; Protocol Last Admin: 08/26/19 05:00 Dose: 1 applicatio Documented by: Dextrose (D50w Syringe) 0 gm IV X1 PRN; Protocol PRN Reason: Hypoglycemia Enoxaparin Sodium (Lovenox) 90 mg SC Q12@0600,1800 [facility] Last Admin: 08/26/19 05:00 Dose: 90 mg Documented by: Glucagon () 1 mg IM .X1 PRN PRN Reason: Hypoglycemia Hydroxyurea (Hydrea) 500 mg PO BID [facility] Last Admin: 08/26/19 08:41 Dose: 500 mg Documented by: Sodium Chloride () 250 mls @ 15 mls/hr IV .[id number] PRN PRN Reason: Saline Flush Last Infusion: 08/25/19 23:05 Dose: 0 mls/hr Documented by: Sodium Chloride () 250 mls @ 15 mls/hr IV .[id number] PRN PRN Reason: Additional IVPB Infusion Dextrose () 1,000 mls @ 100 mls/hr IV .Q10H [facility] Last Admin: 08/26/19 09:37 Dose: 100 mls/hr Documented by: Lansoprazole (Lansoprazole) 15 mg PO BID [facility] Last Admin: 08/26/19 08:42 Dose: 15 mg Documented by: Levothyroxine Sodium (Synthroid) 100 mcg PO DAILY [facility] Last Admin: 08/25/19 09:40 Dose: Not Given Documented by: Ondansetron HCl (Zofran) 4 mg IV Q8H PRN PRN PRN Reason: NAUSEA/VOMITING Phenytoin Sodium (Dilantin) 200 mg PO DAILYCM [facility] Last Admin: 08/26/19 08:41 Dose: 200 mg Documented by: Quetiapine Fumarate (Seroquel) 50 mg PO BID [facility] Last Admin: 08/26/19 08:41 Dose: 50 mg Documented by: Sodium Chloride () 10 - 40 ml IV UD PRN PRN Reason: SALINE FLUSH Last Admin: 08/26/19 08:42 Dose: 30 ml Documented by: STROKE Vital Signs/Narrative: Vital Signs Temp Pulse Resp BP BP Pulse Ox 08/26/19 08:53 97 08/26/19 08:00 98.5 F 74 21 H 128/94 H 99 08/26/19 07:01 65 08/26/19 07:00 98.4 F 69 20 H 102/62 97 Medical Necessity - Tobacco Use Smoking Status: Never smoker Assessment/Plan All Active Problems (Last Reviewed 08/13/19 @ 01:[address] Matt Espinoza MD) Pneumonia (Acute) Hypoxia (Acute) COVID-19 (Acute) SARS-associated coronavirus infection (Acute) LI (acute kidney injury) (Acute) 1. Acute hypoxic respiratory failure due to COVID 19 infection * extubated and now on 2L of oxygen * critical care on board * has completed a course of zosyn and also received convalescent plasma * on breathing treatment with bronchodilators. * titrate oxygen to maintain sats >90% * encourage incentive spirometer use * * 2. COVID 19 infection * has completed a course of IV zosyn, adn also received convalescent plasma * on lovenox therapeutic dose * ID on board * repeat test was still positive * 3. Nonstemi: * troponins peaked at 1.89. * 2D echo showed EF of 65% * was thought to be due to demand ischemia * on lovenox and aspirin * further workup to be determined as per cardiology * 4. Bradycardia: * resolved. HR is now in the 70s * 5. Hypernatremia: sodium is 153. On D5W @ 100cc/hr 6. Thrombocytosis: platelets are up to 779. not clear why. Will consider hematology consult if it persists. 7. LI * resolved. Cr is 1.33 * nephrology on board 8. Hypothyroidism: On Synthroid. 9. Seizure disorder: Currently on phenytoin. 10. Delirium and agitation: now on seroquel. Nutrition: now on regular diet. GI prophylaxis: On lansoprazole DVT prophylaxis: on therapeutic lovenox Inpatient E&M: [id number] [facility] L[facility]
--- NOTE | 2019-08-26 11:04 | CASEMGMT ---
Social Work Note SW participated in ICU rounds. Pt's COVID test came back positive again. SW updated staff that TCU is requiring two negative tests, which would likely be the same for any SNF. The only SNF that is accepting COVID positive patients is [facility] and family has stated that they don't want pt going to [facility]. Pt would need to remain at [facility] until pt's test negative for COVID. Pt also needs pre-cert. Chelly Vargas [employer], [employer]
[2019-08-26 12:23] LABS: Pathologist Review Reviewed
--- NOTE | 2019-08-26 15:40 | NURSING ---
Spoke w/pt's daughter Nga and updated on pt's condition. All questions answered.
--- NOTE | 2019-08-26 16:25 | PN.RENAL_ITS ---
Patient Problems: Active and Suspected Problems (Last Reviewed 08/13/19 @ 01:[address] Matt Espinoza MD) Pneumonia (Acute) Hypoxia (Acute) COVID-19 (Acute) SARS-associated coronavirus infection (Acute) LI (acute kidney injury) (Acute) Subjective: no new events - Physical Exam Vitals/I&O's: Vital Signs Temp Pulse Resp BP Pulse Ox 98.8 F 58 L 21 H 169/73 H 98 08/26/19 12:00 08/26/19 16:11 08/26/19 12:00 08/26/19 12:00 08/26/19 12:00 Oxygen Flow Rate (L/min) 2 Oxygen Delivery Method Nasal Cannula Weight: 88.5 kg Body Mass Index (BMI) 31.1 Intake and Output for Last 24 Hours 08/24/19 08/25/19 08/26/19 23:59 23:59 23:59 Intake Total 1312.08 / 1312.08 428 / 428 255 / 255 Output Total 3375 / 3825 2925 / 2925 725 / 725 Balance -2062.92 / -2512.92 -2497 / -2497 -470 / -470 General: Alert, Oriented x3, Cooperative HEENT: Atraumatic, PERRLA, EOMI, Normocephalic Neck: Supple, No JVD, Negative Carotid Bruits Lungs: Clear to auscultation, Normal air movement Cardiovascular: Regular rate, No murmurs Abdomen: Bowel Sounds Present, Soft, Non Tender Extremities: No edema, Capillary Refill Less than 3 Seconds Skin: No rashes, No breakdown Musculoskeletal: No Tenderness to Palpation of Joints or Extremities Neurological: Cranial nerves II-XII grossly intact Psych/Mental Status: Normal Affect, Appropriate Laboratory Results 08/26/19 04:20: WBC 16.6 H, RBC 3.82 L, Hgb 12.9 L, Hct 39.7 L, MCV 103.9 H, MCH 33.8 H, MCHC 32.5, RDW Std Deviation 58.8 H, RDW Coeff of Nacho 15.3 H, Plt Count 779 H*, MPV 10.1, Immature Gran % (Auto) 4.600 H, Neut % (Auto) 81.9 H, Lymph % (Auto) 6.3 L, Jefferson % (Auto) 5.7, Eos % (Auto) 0.7, Baso % (Auto) 0.8, Absolute Neuts (auto) 13.6 H, Absolute Lymphs (auto) 1.05, Nucleated RBC % 0.1, Differential Comment SCANNED, Diff Path Review Reviewed, Platelet Estimate MKD INC 08/26/19 04:20: Sodium 153 H, Potassium 3.6, Chloride 116 H, Carbon Dioxide 31.0, Anion Gap 6, BUN 69 H, Creatinine 1.33 H, Estim Creat Clear Calc 47.26, Est GFR (MDRD) Af Amer 67, Est GFR (MDRD) Non-Af 55 L, BUN/Creatinine Ratio 51.9 H, Glucose 136 H, Calcium 8.8 Current Medications Acetaminophen (Tylenol Liquid) 650 mg PO Q4H PRN PRN PRN Reason: Pain Score 1-10/Temp > 100.7 F Aspirin (Aspirin, Baby) 81 mg PO DAILY@1000 [facility] Last Admin: 08/26/19 08:42 Dose: 81 mg Documented by: Clotrimazole (Lotrimin) 1 applicatio TOPICAL TID [facility]; Protocol Last Admin: 08/26/19 05:00 Dose: 1 applicatio Documented by: Dextrose (D50w Syringe) 0 gm IV X1 PRN; Protocol PRN Reason: Hypoglycemia Enoxaparin Sodium (Lovenox) 90 mg SC Q12@0600,1800 [facility] Last Admin: 08/26/19 05:00 Dose: 90 mg Documented by: Glucagon () 1 mg IM .X1 PRN PRN Reason: Hypoglycemia Hydroxyurea (Hydrea) 500 mg PO BID [facility] Last Admin: 08/26/19 08:41 Dose: 500 mg Documented by: Sodium Chloride () 250 mls @ 15 mls/hr IV .[id number] PRN PRN Reason: Saline Flush Last Infusion: 08/25/19 23:05 Dose: 0 mls/hr Documented by: Sodium Chloride () 250 mls @ 15 mls/hr IV .[id number] PRN PRN Reason: Additional IVPB Infusion Dextrose () 1,000 mls @ 100 mls/hr IV .Q10H [facility] Last Admin: 08/26/19 09:37 Dose: 100 mls/hr Documented by: Levothyroxine Sodium (Synthroid) 100 mcg PO DAILY@0600 [facility] Ondansetron HCl (Zofran) 4 mg IV Q8H PRN PRN PRN Reason: NAUSEA/VOMITING Pantoprazole Sodium (Protonix) 40 mg PO DAILY [facility] Phenytoin Sodium (Dilantin) 200 mg PO DAILYCM [facility] Last Admin: 08/26/19 08:41 Dose: 200 mg Documented by: Quetiapine Fumarate (Seroquel) 50 mg PO BID [facility] Last Admin: 08/26/19 08:41 Dose: 50 mg Documented by: Sodium Chloride () 10 - 40 ml IV UD PRN PRN Reason: SALINE FLUSH Last Admin: 08/26/19 08:42 Dose: 30 ml Documented by: Medical Necessity - Tobacco Use Smoking Status: Never smoker Assessment/Plan All Active Problems (Last Reviewed 08/13/19 @ 01:[address] Matt Espinoza MD) Pneumonia (Acute) Hypoxia (Acute) COVID-19 (Acute) SARS-associated coronavirus infection (Acute) LI (acute kidney injury) (Acute) LI. normal baseline. zarco in place, hence obstructive unlikely. UA reviewed, consistent with Covid related LI. oliguria with volume overload. received 4 HD treatments so far remarkably well today extubated. dialysis line out BP is ok urine output is ok. cr is ok no longer needs HD dc lasix already D5W for hypernatremia
[2019-08-27] VITALS (11 sets, daily range): BP systolic 130–151; BP diastolic 58–70; PULSE 50–59; RESP 15–24; TEMP 36.2–36.6; O2SAT 93–97
[2019-08-27 05:26] LABS: Absolute Lymphocyte Count 1.26 X10^3/uL (0.83-4.51); Absolute Neutrophil Count 11.6 X10^3/uL (2.0-7.7); Basophil# 0.15 X10^3/uL; Basophil% 1.1 % (0-1); Eosinophil# 0.14 X10^3/uL; Hematocrit 38.8 % (40-54); Hemoglobin 12.3 g/dL (13.0-16.5); Lymphocyte # 1.26 X10^3/ul (4.0); Lymphocyte % 8.9 % (19-41); Mean Corp Hgb Conc 31.7 g/dL (32-36); Mean Corpuscular Hgb 33.7 pg (27.0-32.0); Mean Corpuscular Volume 106.3 fL (80-94); Mean Platelet Vol. 9.8 fl (6.2-12.0); Monocyte# 0.83 X10^3/uL; Monocyte% 5.8 % (0-10); NRBC Flagged by Analyzer 0 % (0-5); Neutrophil # 11.56 X10^3/uL (2.7-7.7); Neutrophil % 81.2 % (47-70); Platelet Count 700 K/mm3 (150-450); RBC Distribution Width CV 15.6 % (11.6-14.6); RBC Distribution Width SD 60.9 fl (35.1-43.9); Red Blood Count 3.65 M/mm3 (4.6-6.2); White Blood Count 14.2 K/mm3 (4.4-11.0)
[2019-08-27] MEDS: Enoxaparin 100 MG/ML Syringe 90 MG SC ×2 (05:27→16:56)
[2019-08-27] MEDS: Levothyroxine 100 MCG Tablet PO (05:27)
[2019-08-27 05:49] LABS: Anion Gap 7 (5-15); BUN 63 mg/dL (7-18); BUN/Creat Ratio 46.3 RATIO (10-20); Calcium,Total 8.5 mg/dL (8.5-10.1); Chloride 114 mmol/L (98-107); Creatinine, Serum 1.36 mg/dL (0.70-1.30); EST Glomerular Filtration Rate 54 mL/min (>60); Est Glom Filt Rate - Afr Amer 65 mL/min (>60); Estimated Creatinine Clearance 46.22 ml/min; Glucose 127 mg/dL (74-106); Potassium 3.7 mmol/L (3.5-5.1); Sodium Level 150 mmol/L (136-145)
--- NOTE | 2019-08-27 06:13 | PN_ITS ---
Subjective: The patient was seen and examined at the bedside this morning. Events from the last 24 hours have been reviewed. The patient is currently afebrile, hemodynamically stable and maintaining appropriate oxygen saturations on 2 L/min via nasal cannula. Sodium and chloride are slowly improving on the D5W infusion. The patient is currently documented to be overall net +6.2 L for the hospital admission. Delirium is improving. Objective: The patient's most recent lab work, culture data and imaging studies have all been personally reviewed. CTA chest revealed suboptimal opacification of the bilateral pulmonary arteries. No significant PE was identified. However, bilateral groundglass changes were present, most pronounced in the right lower lobe. Coronavirus PCR was positive on August 06. Respiratory viral panel was negative. Strep and urine Legionella antigens were negative. Repeat coronavirus PCR was positive on August 24. General: Alert, No apparent distress, Confused HEENT: Atraumatic, Normocephalic Oral: No Gingival or Mucosal Lesions/ Ulcerations Neck: Supple, No Nodes, Trachea Midline Lungs: No rhonchi, No wheeze, No rales, Diminished Cardiovascular: Normal S1, Normal S2, No murmurs, Bradycardic Abdomen: Bowel Sounds Present, Soft, Non Tender Extremities: No clubbing, No cyanosis, No edema Musculoskeletal: No Muscle Wasting Lymphatic: No Cervical, Supraclavicular, or Inguinal Adenopathy Neurological: Cranial nerves II-XII grossly intact, Neuro grossly intact Vital Signs Temp Pulse Resp BP Pulse Ox 97.5 F L 51 L 19 H 144/65 H 96 08/27/19 02:15 08/27/19 03:29 08/27/19 02:15 08/27/19 02:15 08/27/19 02:15 Oxygen Flow Rate (L/min) 2 Oxygen Delivery Method Nasal Cannula Weight: 199 lb 1.239 oz Body Mass Index (BMI) 31.1 Intake and Output for Last 24 Hours 08/25/19 08/26/19 08/27/19 23:59 23:59 23:59 Intake Total 428 / 428 2153.33 / 2153.33 771.67 / 771.67 Output Total 2925 / 2925 1000 / 1000 450 / 450 Balance -2497 / -2497 1153.33 / 1153.33 321.67 / 321.67 Labs (Last 48 Hours) 08/25/19 08/25/19 08/26/19 05:15 10:15 04:20 WBC 16.6 H RBC 3.82 L Hgb 12.9 L Hct 39.7 L MCV 103.9 H MCH 33.8 H MCHC 32.5 RDW Std Deviation 58.8 H RDW Coeff of Nacho 15.3 H Plt Count 779 H* MPV 10.1 Immature Gran % (Auto) 4.600 H Neut % (Auto) 81.9 H Lymph % (Auto) 6.3 L [place] % (Auto) 5.7 Eos % (Auto) 0.7 Baso % (Auto) 0.8 Absolute Neuts (auto) 15.6 H 13.6 H Absolute Lymphs (auto) 0.72 L 1.05 Total Counted 100 Neutrophils % (Manual) 85 H Band Neutrophils % 2 Lymphocytes % (Manual) 4 L Monocytes % (Manual) 9 Nucleated RBC % 0.1 Differential Comment SCANNED Diff Path Review Reviewed Reviewed Platelet Estimate MKD INC Sodium Potassium Chloride Carbon Dioxide Anion Gap BUN Creatinine Estim Creat Clear Calc Est GFR (MDRD) Af Amer Est GFR (MDRD) Non-Af BUN/Creatinine Ratio Glucose Calcium COVID-19 (JONO) Detected 08/26/19 08/27/19 08/27/19 04:20 05:20 05:20 WBC 14.2 H RBC 3.65 L Hgb 12.3 L Hct 38.8 L MCV 106.3 H MCH 33.7 H MCHC 31.7 L RDW Std Deviation 60.9 H RDW Coeff of Nacho 15.6 H Plt Count 700 H MPV 9.8 Immature Gran % (Auto) 2.000 H Neut % (Auto) 81.2 H Lymph % (Auto) 8.9 L [place] % (Auto) 5.8 Eos % (Auto) 1.0 Baso % (Auto) 1.1 H Absolute Neuts (auto) 11.6 H Absolute Lymphs (auto) 1.26 Total Counted Neutrophils % (Manual) Band Neutrophils % Lymphocytes % (Manual) Monocytes % (Manual) Nucleated RBC % 0 Differential Comment Diff Path Review Platelet Estimate Sodium 153 H 150 H Potassium 3.6 3.7 Chloride 116 H 114 H Carbon Dioxide 31.0 29.0 Anion Gap 6 7 BUN 69 H 63 H Creatinine 1.33 H 1.36 H Estim Creat Clear Calc 47.26 46.22 Est GFR (MDRD) Af Amer 67 65 Est GFR (MDRD) Non-Af 55 L 54 L BUN/Creatinine Ratio 51.9 H 46.3 H Glucose 136 H 127 H Calcium 8.8 8.5 COVID-19 (JONO) Clinical Impression(s) from Imaging Studies Chest X-Ray 08/12/19 22:50 IMPRESSION: Worsening of bilateral pulmonary infiltrates consistent with nonspecific multifocal pneumonia. Electronically Signed: Eriberto Smalls MD at 23:13 EDT , Service support , Chest X-Ray 08/14/19 05:20 IMPRESSION: 1. Suggest advancing endotracheal tube approximately 2 or 3 cm. 2. Unchanged appearance to bilateral multifocal airspace disease consistent with pneumonia. Electronically Signed: Shamika Mistry MD at 8:34 EDT , Service support , Chest X-Ray 08/14/19 07:54 IMPRESSION: 1. Appropriate positioning of endotracheal and enteric tubes. 2. Extensive bilateral heterogeneous airspace consolidations consistent with multifocal pneumonia. There appears to be increasing left basilar airspace consolidation since previous radiograph. Electronically Signed: Shamika Mistry MD at 9:58 EDT , Service support , Chest X-Ray 08/17/19 13:00 IMPRESSION: 1. Left central venous catheter is in the superior vena cava. No pneumothorax. 2. Endotracheal and nasogastric tubes unchanged. 3. Improved aeration at the lung bases. The bilateral infiltrates are otherwise stable. Electronically Signed: Alfonzo Lucero MD at 13:28 EDT , Service support , Chest X-Ray 08/19/19 13:25 IMPRESSION: Progressive bilateral infiltrates. The tip of the right dialysis catheter is at the junction of superior vena cava and right atrium. Electronically Signed: Abdulaziz Romero at 13:53 EDT , Service support , Chest X-Ray 08/23/19 09:56 IMPRESSION: All the support tubes are in good position. Progressive infiltrate seen in the peripheral aspect of the left lung as well as at the right lung base. Improved aeration of the right upper lobe. Electronically Signed: Abdulaziz Romero, at 12:28 EDT , Service support , Medical Necessity - Tobacco Use Smoking Status: Never smoker Assessment/Plan All Active Problems (Last Reviewed 08/13/19 @ 01:[address] Matt Espinoza MD) Pneumonia (Acute) Hypoxia (Acute) COVID-19 (Acute) SARS-associated coronavirus infection (Acute) LI (acute kidney injury) (Acute) RECOMMENDATIONS: 1. Continue scheduled Seroquel twice daily. 2. Continue home hydroxyurea and Dilantin. 3. Continue D5W and continue to monitor sodium levels. 4. Continue Lovenox as ordered. 5. Encourage incentive spirometer use and mobilize patient as tolerated. 6. Physical therapy to continue to work with the patient. IMPRESSIONS: 1. Acute hypoxemic respiratory failure secondary to COVID-19 infection The patient was evaluated in the emergency department on August 06 with a CTA chest which revealed bilateral groundglass changes. Subsequent COVID testing was posi tive. Although the patient was initially discharged home, he experienced worsening shortness of breath and hypoxemia, which prompted his hospital admission. Repeat chest imaging did reveal progressive bilateral infiltrates. The patient was initially placed on noninvasive positive pressure ventilatory support but decompensated eventually requiring intubation. The patient did receive convalescent plasma ([place] [id number]) on the evening of August 12. The patient has completed a course of Zosyn under the discretion of infectious diseases. The patient demonstrated slow clinical improvement and was able to be extubated on the morning of August 23. Plan at this time will include weaning of his supplemental oxygen to maintain saturations at or above 90%. Continue systemic anticoagulation with Lovenox as ordered. Encourage incentive spirometer use and mobilize patient as tolerated. 2. Acute kidney injury Improved. Likely related to ATN in the setting of #1, along with hemodynamic instability which was generated as a consequence of sedative utilization. Urine output has improved. 3. Hypernatremia/hyperchloremia Continue gentle IV fluid hydration with D5W. Continue to monitor BMP daily. 4. Unspecified seizure disorder/hypothyroidism/hypertension/obesity Complicates care, management, recovery and prognosis. Continue home medications as indicated. Physical therapy to continue to work with the patient. This note was generated with [employer] dictation software. It may contain incorrect words, spelling, and punctuation that were not noted in checking the note before signing. Inpatient E&M: 51868 Subs Hosp L2
--- NOTE | 2019-08-27 06:52 | NURSING ---
Called tar roofer and cancelled midline placement.
[2019-08-27] MEDS: Pantoprazole Sodium 40 MG Tablet PO (08:46)
[2019-08-27] MEDS: QUEtiapine 25 MG Tablet 50 MG PO ×2 (08:46→21:00)
[2019-08-27] MEDS: Aspirin 81 MG TAB.CHEW PO (08:46)
[2019-08-27] MEDS: Phenytoin Na 100 MG Capsule 200 MG PO (08:46)
[2019-08-27] MEDS: Hydroxyurea 500 MG Capsule PO ×2 (08:46→21:00)
--- NOTE | 2019-08-27 10:36 | PN_ITS ---
Patient Problems: Active and Suspected Problems (Last Reviewed 08/13/19 @ 01:[address] Matt Espinoza MD) Pneumonia (Acute) Hypoxia (Acute) COVID-19 (Acute) SARS-associated coronavirus infection (Acute) LI (acute kidney injury) (Acute) Subjective: Patient seen and examined. He was much calmer today and had no complaints. He was not as tearful as yesterday. He denies any chest pain, palpitations, dizziness, nausea vomiting or diarrhea. Review of symptoms otherwise negative. Labs and vitals reviewed. He has remained hemodynamically stable though he has had a bit of bradycardia. Sodium is down to 150 today. WBC is 14.2 and hemoglobin is 12.3. Platelets of started trending down to 700 today. He is on only 1 L of oxygen. Vitals/I&O's: Vital Signs Temp Pulse Resp BP Pulse Ox 97.1 F L 54 L 20 H 151/70 H 97 08/27/19 08:34 08/27/19 08:34 08/27/19 08:34 08/27/19 08:34 08/27/19 08:34 Oxygen Flow Rate (L/min) 1 Oxygen Delivery Method Nasal Cannula Weight: 199 lb 1.239 oz Body Mass Index (BMI) 31.1 Intake and Output for Last 24 Hours 08/25/19 08/26/19 08/27/19 23:59 23:59 23:59 Intake Total 428 / 428 2153.33 / 2153.33 771.67 / 771.67 Output Total 2925 / 2925 1000 / 1000 450 / 450 Balance -2497 / -2497 1153.33 / 1153.33 321.67 / 321.67 General: Alert, Cooperative, No apparent distress, HEENT: Atraumatic, PERRLA, EOMI, Normocephalic Oral: Dry Mucosa Neck: Supple, No JVD, Negative Carotid Bruits Lungs: Clear to auscultation, Normal air movement; on 1L of oxygen Cardiovascular: Regular rate, Regular Rhythm, Normal S1, Normal S2, No murmurs Abdomen: Bowel Sounds Present, Soft, Non Tender, Non-Distended, No Hepato- splenomegaly Extremities: No clubbing, No cyanosis, No edema, Capillary Refill Less than 3 Seconds Skin: No rashes, No breakdown Musculoskeletal: No Tenderness to Palpation of Joints or Extremities Lymphatic: No Cervical, Supraclavicular, or Inguinal Adenopathy Neurological: Cranial nerves II-XII grossly intact Psych/Mental Status: calm, normal affect Laboratory Results 08/26/19 04:20: Diff Path Review Reviewed 08/27/19 05:20: WBC 14.2 H, RBC 3.65 L, Hgb 12.3 L, Hct 38.8 L, MCV 106.3 H, MCH 33.7 H, MCHC 31.7 L, RDW Std Deviation 60.9 H, RDW Coeff of Nacho 15.6 H, Plt Count 700 H, MPV 9.8, Immature Gran % (Auto) 2.000 H, Neut % (Auto) 81.2 H, Lymph % (Auto) 8.9 L, [place] % (Auto) 5.8, Eos % (Auto) 1.0, Baso % (Auto) 1.1 H, Absolute Neuts (auto) 11.6 H, Absolute Lymphs (auto) 1.26, Nucleated RBC % 0 08/27/19 05:20: Sodium 150 H, Potassium 3.7, Chloride 114 H, Carbon Dioxide 29.0, Anion Gap 7, BUN 63 H, Creatinine 1.36 H, Estim Creat Clear Calc 46.22, Est GFR (MDRD) Af Amer 65, Est GFR (MDRD) Non-Af 54 L, BUN/Creatinine Ratio 46.3 H, Glucose 127 H, Calcium 8.5 Diagnostic Data Chest X-Ray 08/23/19 09:56 IMPRESSION: All the support tubes are in good position. Progressive infiltrate seen in the peripheral aspect of the left lung as well as at the right lung base. Improved aeration of the right upper lobe. Electronically Signed: Abdulaziz Romero, at 12:28 EDT , Service support , Current Medications Acetaminophen (Tylenol Liquid) 650 mg PO Q4H PRN PRN PRN Reason: Pain Score 1-10/Temp > 100.7 F Aspirin (Aspirin, Baby) 81 mg PO DAILY@1000 [facility] Last Admin: 08/27/19 08:46 Dose: 81 mg Documented by: Clotrimazole (Lotrimin) 1 applicatio TOPICAL TID [facility]; Protocol Last Admin: 08/27/19 05:28 Dose: 1 applicatio Documented by: Dextrose (D50w Syringe) 0 gm IV X1 PRN; Protocol PRN Reason: Hypoglycemia Enoxaparin Sodium (Lovenox) 90 mg SC Q12@0600,1800 [facility] Last Admin: 08/27/19 05:27 Dose: 90 mg Documented by: Glucagon () 1 mg IM .X1 PRN PRN Reason: Hypoglycemia Hydroxyurea (Hydrea) 500 mg PO BID [facility] Last Admin: 08/27/19 08:46 Dose: 500 mg Documented by: Sodium Chloride () 250 mls @ 15 mls/hr IV .[id number] PRN PRN Reason: Saline Flush Last Infusion: 08/25/19 23:05 Dose: 0 mls/hr Documented by: Sodium Chloride () 250 mls @ 15 mls/hr IV .[id number] PRN PRN Reason: Additional IVPB Infusion Dextrose () 1,000 mls @ 100 mls/hr IV .Q10H [facility] Last Infusion: 08/27/19 05:46 Dose: 100 mls/hr Documented by: Levothyroxine Sodium (Synthroid) 100 mcg PO DAILY@0600 [facility] Last Admin: 08/27/19 05:27 Dose: 100 mcg Documented by: Ondansetron HCl (Zofran) 4 mg IV Q8H PRN PRN PRN Reason: NAUSEA/VOMITING Pantoprazole Sodium (Protonix) 40 mg PO DAILY [facility] Last Admin: 08/27/19 08:46 Dose: 40 mg Documented by: Phenytoin Sodium (Dilantin) 200 mg PO DAILYCM [facility] Last Admin: 08/27/19 08:46 Dose: 200 mg Documented by: Quetiapine Fumarate (Seroquel) 50 mg PO BID [facility] Last Admin: 08/27/19 08:46 Dose: 50 mg Documented by: Sodium Chloride () 10 - 40 ml IV UD PRN PRN Reason: SALINE FLUSH Last Admin: 08/26/19 21:36 Dose: 10 ml Documented by: STROKE Vital Signs/Narrative: Vital Signs Temp Pulse Resp BP Pulse Ox 08/27/19 08:34 97.1 F L 54 L 20 H 151/70 H 97 08/27/19 08:00 97 08/27/19 07:26 50 L Medical Necessity - Tobacco Use Smoking Status: Never smoker Assessment/Plan All Active Problems (Last Reviewed 08/13/19 @ 01:[address] Matt Espinoza MD) Pneumonia (Acute) Hypoxia (Acute) COVID-19 (Acute) SARS-associated coronavirus infection (Acute) LI (acute kidney injury) (Acute) 1. Acute hypoxic respiratory failure due to COVID 19 infection * extubated and now on 1L of oxygen * critical care on board * has completed a course of zosyn and also received convalescent plasma * on breathing treatment with bronchodilators. * titrate oxygen to maintain sats >90% * encourage incentive spirometer use * * 2. COVID 19 infection * has completed a course of IV zosyn, adn also received convalescent plasma * on lovenox therapeutic dose * ID on board * repeat test was still positive * 3. Nonstemi: * troponins peaked at 1.89. * 2D echo showed EF of 65% * was thought to be due to demand ischemia * on lovenox and aspirin * will seek cardiology opinion; patient is still testing positive for COVID 19, so I think this may preclude him getting an extensive workup including cardiac cath, until he tests negative. * 4. Bradycardia: * resolved. HR is now in the 70s * 5. Hypernatremia: sodium is 150. On D5W @ 100cc/hr 6. thrombocythemia: improving. Platelets have trended down to 700 today. was started on hydroxyurea, which is helping the platelets trend downward. Will continue monitoring. 7. LI * resolved. Cr is 1.36 * nephrology on board 8. Hypothyroidism: On Synthroid. 9. Seizure disorder: Currently on phenytoin. 10. Delirium and agitation: now on seroquel. Nutrition: now on regular diet. GI prophylaxis: On lansoprazole DVT prophylaxis: on therapeutic lovenox Inpatient E&M: 11794 Subs Hosp L2
--- NOTE | 2019-08-27 16:01 | PN.RENAL_ITS ---
Patient Problems: Active and Suspected Problems (Last Reviewed 08/13/19 @ 01:[address] Matt Espinoza MD) Pneumonia (Acute) Hypoxia (Acute) COVID-19 (Acute) SARS-associated coronavirus infection (Acute) LI (acute kidney injury) (Acute) Subjective: no new events exam deferred - Physical Exam Vitals/I&O's: Vital Signs Temp Pulse Resp BP Pulse Ox 97.2 F L 57 L 17 144/58 H 96 08/27/19 12:13 08/27/19 12:13 08/27/19 12:13 08/27/19 12:13 08/27/19 12:13 Oxygen Flow Rate (L/min) 1 Oxygen Delivery Method Room Air Weight: 90.3 kg Body Mass Index (BMI) 31.1 Intake and Output for Last 24 Hours 08/25/19 08/26/19 08/27/19 23:59 23:59 23:59 Intake Total 428 / 428 2153.33 / 2153.33 2175.00 / 2175.00 Output Total 2925 / 2925 1000 / 1000 900 / 900 Balance -2497 / -2497 1153.33 / 1153.33 1275.00 / 1275.00 Laboratory Results 08/27/19 05:20: WBC 14.2 H, RBC 3.65 L, Hgb 12.3 L, Hct 38.8 L, MCV 106.3 H, MCH 33.7 H, MCHC 31.7 L, RDW Std Deviation 60.9 H, RDW Coeff of Nacho 15.6 H, Plt Count 700 H, MPV 9.8, Immature Gran % (Auto) 2.000 H, Neut % (Auto) 81.2 H, Lymph % (Auto) 8.9 L, [place] % (Auto) 5.8, Eos % (Auto) 1.0, Baso % (Auto) 1.1 H, Absolute Neuts (auto) 11.6 H, Absolute Lymphs (auto) 1.26, Nucleated RBC % 0 08/27/19 05:20: Sodium 150 H, Potassium 3.7, Chloride 114 H, Carbon Dioxide 29.0, Anion Gap 7, BUN 63 H, Creatinine 1.36 H, Estim Creat Clear Calc 46.22, Est GFR (MDRD) Af Amer 65, Est GFR (MDRD) Non-Af 54 L, BUN/Creatinine Ratio 46.3 H, Glucose 127 H, Calcium 8.5 Current Medications Acetaminophen (Tylenol Liquid) 650 mg PO Q4H PRN PRN PRN Reason: Pain Score 1-10/Temp > 100.7 F Aspirin (Aspirin, Baby) 81 mg PO DAILY@1000 [facility] Last Admin: 08/27/19 08:46 Dose: 81 mg Documented by: Clotrimazole (Lotrimin) 1 applicatio TOPICAL TID [facility]; Protocol Last Admin: 08/27/19 14:31 Dose: 1 applicatio Documented by: Dextrose (D50w Syringe) 0 gm IV X1 PRN; Protocol PRN Reason: Hypoglycemia Enoxaparin Sodium (Lovenox) 90 mg SC Q12@0600,1800 [facility] Last Admin: 08/27/19 05:27 Dose: 90 mg Documented by: Glucagon () 1 mg IM .X1 PRN PRN Reason: Hypoglycemia Hydroxyurea (Hydrea) 500 mg PO BID [facility] Last Admin: 08/27/19 08:46 Dose: 500 mg Documented by: Sodium Chloride () 250 mls @ 15 mls/hr IV .[id number] PRN PRN Reason: Saline Flush Last Infusion: 08/25/19 23:05 Dose: 0 mls/hr Documented by: Sodium Chloride () 250 mls @ 15 mls/hr IV .[id number] PRN PRN Reason: Additional IVPB Infusion Dextrose () 1,000 mls @ 100 mls/hr IV .Q10H [facility] Last Admin: 08/27/19 14:32 Dose: 100 mls/hr Documented by: Levothyroxine Sodium (Synthroid) 100 mcg PO DAILY@0600 [facility] Last Admin: 08/27/19 05:27 Dose: 100 mcg Documented by: Ondansetron HCl (Zofran) 4 mg IV Q8H PRN PRN PRN Reason: NAUSEA/VOMITING Pantoprazole Sodium (Protonix) 40 mg PO DAILY [facility] Last Admin: 08/27/19 08:46 Dose: 40 mg Documented by: Phenytoin Sodium (Dilantin) 200 mg PO DAILYCM [facility] Last Admin: 08/27/19 08:46 Dose: 200 mg Documented by: Quetiapine Fumarate (Seroquel) 50 mg PO BID [facility] Last Admin: 08/27/19 08:46 Dose: 50 mg Documented by: Sodium Chloride () 10 - 40 ml IV UD PRN PRN Reason: SALINE FLUSH Last Admin: 08/26/19 21:36 Dose: 10 ml Documented by: Medical Necessity - Tobacco Use Smoking Status: Never smoker Assessment/Plan All Active Problems (Last Reviewed 08/13/19 @ 01:[address] Matt Espinoza MD) Pneumonia (Acute) Hypoxia (Acute) COVID-19 (Acute) SARS-associated coronavirus infection (Acute) LI (acute kidney injury) (Acute) LI. normal baseline. zarco in place, hence obstructive unlikely. UA reviewed, consistent with Covid related LI. oliguria with volume overload. received 4 HD treatments so far remarkably well today extubated. dialysis line out BP is ok urine output is ok. cr is ok no longer needs HD dc lasix already D5W for hypernatremia
[2019-08-28] VITALS (10 sets, daily range): BP systolic 129–179; BP diastolic 65–74; PULSE 47–63; RESP 17–24; TEMP 36.3–36.9; O2SAT 92–99
[2019-08-28 04:08] LABS: Absolute Lymphocyte Count 1.29 X10^3/uL (0.83-4.51); Absolute Neutrophil Count 11.2 X10^3/uL (2.0-7.7); Basophil# 0.16 X10^3/uL; Basophil% 1.2 % (0-1); Eosinophil# 0.18 X10^3/uL; Eosinophils% 1.3 % (0-5); Hematocrit 38.5 % (40-54); Hemoglobin 12.5 g/dL (13.0-16.5); Lymphocyte # 1.29 X10^3/ul (4.0); Lymphocyte % 9.4 % (19-41); Mean Corp Hgb Conc 32.5 g/dL (32-36); Mean Corpuscular Hgb 33.9 pg (27.0-32.0); Mean Corpuscular Volume 104.3 fL (80-94); Mean Platelet Vol. 10.1 fl (6.2-12.0); Monocyte% 4.4 % (0-10); NRBC Flagged by Analyzer 0 % (0-5); Neutrophil # 11.22 X10^3/uL (2.7-7.7); Neutrophil % 82.2 % (47-70); POSITIVE COUNT YES; RBC Distribution Width CV 14.7 % (11.6-14.6); RBC Distribution Width SD 56.8 fl (35.1-43.9); Red Blood Count 3.69 M/mm3 (4.6-6.2); White Blood Count 13.7 K/mm3 (4.4-11.0)
[2019-08-28 04:35] LABS: Anion Gap 9 (5-15); BUN 51 mg/dL (7-18); BUN/Creat Ratio 41.1 RATIO (10-20); Chloride 104 mmol/L (98-107); Creatinine, Serum 1.24 mg/dL (0.70-1.30); EST Glomerular Filtration Rate 60 mL/min (>60); Est Glom Filt Rate - Afr Amer 73 mL/min (>60); Estimated Creatinine Clearance 50.69 ml/min; Glucose 175 mg/dL (74-106); Sodium Level 139 mmol/L (136-145)
[2019-08-28 04:44] LABS: Differential Indicated SCAN CRITERIA MET; Platelet Count 780 K/mm3 (150-450)
--- NOTE | 2019-08-28 06:02 | PN_ITS ---
Subjective: The patient was seen and examined at the bedside this morning. Events from the last 24 hours have been reviewed. The patient is currently afebrile, hemodynamically stable and maintaining appropriate oxygen saturations on room air. Creatinine has improved. Sodium and chloride levels have normalized. Confusion continues to improve. Objective: The patient's most recent lab work, culture data and imaging studies have all been personally reviewed. CTA chest revealed suboptimal opacification of the bilateral pulmonary arteries. No significant PE was identified. However, bilateral groundglass changes were present, most pronounced in the right lower lobe. Coronavirus PCR was positive on August 06. Respiratory viral panel was negative. Strep and urine Legionella antigens were negative. Repeat coronavirus PCR was positive on August 24. General: Alert, Cooperative, No apparent distress HEENT: Atraumatic, Normocephalic Oral: No Gingival or Mucosal Lesions/ Ulcerations Neck: Supple, No Nodes, Trachea Midline Lungs: No rhonchi, No wheeze, No rales, Diminished Cardiovascular: Normal S1, Normal S2, No murmurs, Bradycardic Abdomen: Bowel Sounds Present, Soft, Non Tender Extremities: No clubbing, No cyanosis, No edema Skin: No breakdown Musculoskeletal: No Tenderness to Palpation of Joints or Extremities Lymphatic: No Cervical, Supraclavicular, or Inguinal Adenopathy Neurological: Cranial nerves II-XII grossly intact, Neuro grossly intact Psych/Mental Status: Normal Affect Vital Signs Temp Pulse Resp BP Pulse Ox 98.4 F 51 L 20 H 179/74 H 94 08/28/19 03:00 08/28/19 03:59 08/28/19 03:00 08/28/19 03:00 08/28/19 03:00 Oxygen Flow Rate (L/min) 1 Oxygen Delivery Method Room Air Weight: 205 lb 11.06 oz Body Mass Index (BMI) 31.1 Intake and Output for Last 24 Hours 08/26/19 08/27/19 08/28/19 23:59 23:59 23:59 Intake Total 2153.33 / 2153.33 2775.00 / 2775.00 1090 / 1090 Output Total 1000 / 1000 1175 / 1175 300 / 300 Balance 1153.33 / 1153.33 1600.00 / 1600.00 790 / 790 Labs (Last 48 Hours) 08/26/19 08/27/19 08/27/19 04:20 05:20 05:20 WBC 14.2 H RBC 3.65 L Hgb 12.3 L Hct 38.8 L MCV 106.3 H MCH 33.7 H MCHC 31.7 L RDW Std Deviation 60.9 H RDW Coeff of Nacho 15.6 H Plt Count 700 H MPV 9.8 Immature Gran % (Auto) 2.000 H Neut % (Auto) 81.2 H Lymph % (Auto) 8.9 L [place] % (Auto) 5.8 Eos % (Auto) 1.0 Baso % (Auto) 1.1 H Absolute Neuts (auto) 11.6 H Absolute Lymphs (auto) 1.26 Nucleated RBC % 0 [address] Review Reviewed Sodium 150 H Potassium 3.7 Chloride 114 H Carbon Dioxide 29.0 Anion Gap 7 BUN 63 H Creatinine 1.36 H Estim Creat Clear Calc 46.22 Est GFR (MDRD) Af Amer 65 Est GFR (MDRD) Non-Af 54 L BUN/Creatinine Ratio 46.3 H Glucose 127 H Calcium 8.5 08/28/19 08/28/19 03:50 03:50 WBC 13.7 H RBC 3.69 L Hgb 12.5 L Hct 38.5 L MCV 104.3 H MCH 33.9 H MCHC 32.5 RDW Std Deviation 56.8 H RDW Coeff of Nacho 14.7 H Plt Count 780 H* MPV 10.1 Immature Gran % (Auto) 1.500 H Neut % (Auto) 82.2 H Lymph % (Auto) 9.4 L [place] % (Auto) 4.4 Eos % (Auto) 1.3 Baso % (Auto) 1.2 H Absolute Neuts (auto) 11.2 H Absolute Lymphs (auto) 1.29 Nucleated RBC % 0 Diff Path Review Sodium 139 Potassium 4.0 Chloride 104 Carbon Dioxide 26.0 Anion Gap 9 BUN 51 H Creatinine 1.24 Estim Creat Clear Calc 50.69 Est GFR (MDRD) Af Amer 73 Est GFR (MDRD) Non-Af 60 BUN/Creatinine Ratio 41.1 H Glucose 175 H Calcium 8.0 L Clinical Impression(s) from Imaging Studies Chest X-Ray 08/12/19 22:50 IMPRESSION: Worsening of bilateral pulmonary infiltrates consistent with nonspecific multifocal pneumonia. Electronically Signed: Eriberto Smalls MD at 23:13 EDT , Service support , Chest X-Ray 08/14/19 05:20 IMPRESSION: 1. Suggest advancing endotracheal tube approximately 2 or 3 cm. 2. Unchanged appearance to bilateral multifocal airspace disease consistent with pneumonia. Electronically Signed: Shamika Mistry MD at 8:34 EDT , Service support , Chest X-Ray 08/14/19 07:54 IMPRESSION: 1. Appropriate positioning of endotracheal and enteric tubes. 2. Extensive bilateral heterogeneous airspace consolidations consistent with multifocal pneumonia. There appears to be increasing left basilar airspace consolidation since previous radiograph. Electronically Signed: Shamika Mistry MD at 9:58 EDT , Service support , Chest X-Ray 08/17/19 13:00 IMPRESSION: 1. Left central venous catheter is in the superior vena cava. No pneumothorax. 2. Endotracheal and nasogastric tubes unchanged. 3. Improved aeration at the lung bases. The bilateral infiltrates are otherwise stable. Electronically Signed: Alfonzo Lucero MD at 13:28 EDT , Service support , Chest X-Ray 08/19/19 13:25 IMPRESSION: Progressive bilateral infiltrates. The tip of the right dialysis catheter is at the junction of superior vena cava and right atrium. Electronically Signed: Abdulaziz Romero, at 13:53 EDT , Service support , Chest X-Ray 08/23/19 09:56 IMPRESSION: All the support tubes are in good position. Progressive infiltrate seen in the peripheral aspect of the left lung as well as at the right lung base. Improved aeration of the right upper lobe. Electronically Signed: Abdulaziz Romero, at 12:28 EDT , Service support , Medical Necessity - Tobacco Use Smoking Status: Never smoker Assessment/Plan All Active Problems (Last Reviewed 08/13/19 @ 01:[address] Matt Espinoza MD) Pneumonia (Acute) Hypoxia (Acute) COVID-19 (Acute) SARS-associated coronavirus infection (Acute) LI (acute kidney injury) (Acute) RECOMMENDATIONS: 1. Discontinue supplemental IV fluids. 2. Continue scheduled Seroquel twice daily. 3. Continue home hydroxyurea and Dilantin. 4. Continue Lovenox as ordered. 5. Encourage incentive spirometer use and mobilize patient as tolerated. 6. Physical therapy to continue to work with the patient. IMPRESSIONS: 1. Acute hypoxemic respiratory failure secondary to COVID-19 infection The patient was evaluated in the emergency department on August 06 with a CTA chest which revealed bilateral groundglass changes. Subsequent COVID testing was positive. Although the patient was initially discharged home, he experienced worsening shortness of breath and hypoxemia, which prompted his hospital admission. Repeat chest imaging did reveal progressive bilateral infiltrates. The patient was initially placed on noninvasive positive pressure ventilatory support but decompensated eventually requiring intubation. The patient did receive convalescent plasma ([place] [id number]) on the evening of August 12. The patient has completed a course of Zosyn under the discretion of infectious diseases. The patient demonstrated slow clinical improvement and was able to be extubated on the morning of August 23. Plan at this time will include weaning of his supplemental oxygen to maintain saturations at or above 90%. Continue systemic anticoagulation with Lovenox as ordered. Encourage incentive spirometer use and mobilize patient as tolerated. 2. Acute kidney injury Improved. Likely related to ATN in the setting of #1, along with hemodynamic instability which was generated as a consequence of sedative utilization. Urine output has improved. 3. Hypernatremia/hyperchloremia Continue gentle IV fluid hydration with D5W. Continue to monitor BMP daily. 4. Unspecified seizure disorder/hypothyroidism/hypertension/obesity Complicates care, management, recovery and prognosis. Continue home medications as indicated. Physical therapy to continue to work with the patient. This note was generated with [email or web address] software. It may contain incorrect words, spelling, and punctuation that were not noted in checking the note before signing. Inpatient E&M: 26416 Subs Hosp L2
[2019-08-28 06:14] LABS: Macrocytosis 1+; Platelet Estimate MKD INC (ADEQ)
[2019-08-28] MEDS: Levothyroxine 100 MCG Tablet PO (06:18)
[2019-08-28] MEDS: Enoxaparin 100 MG/ML Syringe 90 MG SC ×2 (06:18→17:03)
[2019-08-28] MEDS: QUEtiapine 25 MG Tablet 50 MG PO ×2 (09:00→21:38)
[2019-08-28] MEDS: Aspirin 81 MG TAB.CHEW PO (09:00)
[2019-08-28] MEDS: Hydroxyurea 500 MG Capsule PO ×2 (09:00→21:38)
[2019-08-28] MEDS: Pantoprazole Sodium 40 MG Tablet PO (09:00)
[2019-08-28] MEDS: Phenytoin Na 100 MG Capsule 200 MG PO (09:07)
--- NOTE | 2019-08-28 10:01 | PCM.PN.HOSP ---
Patient Problems: Active and Suspected Problems (Last Reviewed 08/13/19 @ 01:[address] Matt Espinoza MD) Pneumonia (Acute) Hypoxia (Acute) COVID-19 (Acute) SARS-associated coronavirus infection (Acute) LI (acute kidney injury) (Acute) Subjective: Patient seen and examined. He looks calm and had no complaints. Review systems otherwise negative. He has remained hemodynamically stable. WBC is down to 13.7. Platelets are up to 780. Sodium is down to 139. Vitals/I&O's: Vital Signs Temp Pulse Resp BP Pulse Ox 97.3 F L 60 24 H 136/72 H 92 08/28/19 09:00 08/28/19 09:00 08/28/19 09:00 08/28/19 09:00 08/28/19 09:00 Oxygen Flow Rate (L/min) 1 Oxygen Delivery Method Room Air Weight: 205 lb 11.06 oz Body Mass Index (BMI) 31.1 Intake and Output for Last 24 Hours 08/26/19 08/27/19 08/28/19 23:59 23:59 23:59 Intake Total 2153.33 / 2153.33 2775.00 / 2775.00 2089 / 2089 Output Total 1000 / 1000 1175 / 1175 300 / 300 Balance 1153.33 / 1153.33 1600.00 / 1600.00 179 / 1790 General: Alert, Cooperative, No apparent distress, HEENT: Atraumatic, PERRLA, EOMI, Normocephalic Oral: Dry Mucosa Neck: Supple, No JVD, Negative Carotid Bruits Lungs: Clear to auscultation, Normal air movement; on 1L of oxygen Cardiovascular: Regular rate, Regular Rhythm, Normal S1, Normal S2, No murmurs Abdomen: Bowel Sounds Present, Soft, Non Tender, Non-Distended, No Hepato-splenomegaly Extremities: No clubbing, No cyanosis, No edema, Capillary Refill Less than 3 Seconds Skin: No rashes, No breakdown Musculoskeletal: No Tenderness to Palpation of Joints or Extremities Lymphatic: No Cervical, Supraclavicular, or Inguinal Adenopathy Neurological: Cranial nerves II-XII grossly intact Psych/Mental Status: calm, normal affect Laboratory Results 08/28/19 03:50: WBC 13.7 H, RBC 3.69 L, Hgb 12.5 L, Hct 38.5 L, MCV 104.3 H, MCH 33.9 H, MCHC 32.5, RDW Std Deviation 56.8 H, RDW Coeff of Nacho 14.7 H, Plt Count 780 H*, MPV 10.1, Immature Gran % (Auto) 1.500 H, Neut % (Auto) 82.2 H, Lymph % (Auto) 9.4 L, [place] % (Auto) 4.4, Eos % (Auto) 1.3, Baso % (Auto) 1.2 H, Absolute Neuts (auto) 11.2 H, Absolute Lymphs (auto) 1.29, Nucleated RBC % 0, Diff Path Review July foll, Platelet Estimate MKD INC, Macrocytosis 1+ 08/28/19 03:50: Sodium 139, Potassium 4.0, Chloride 104, Carbon Dioxide 26.0, Anion Gap 9, BUN 51 H, Creatinine 1.24, Estim Creat Clear Calc 50.69, Est GFR (MDRD) Af Amer 73, Est GFR (MDRD) Non-Af 60, BUN/Creatinine Ratio 41.1 H, Glucose 175 H, Calcium 8.0 L Diagnostic Data Chest X-Ray 08/23/19 09:56 IMPRESSION: All the support tubes are in good position. Progressive infiltrate seen in the peripheral aspect of the left lung as well as at the right lung base. Improved aeration of the right upper lobe. Electronically Signed: Abdulaziz Romero, at 12:28 EDT , Service support , Current Medications Acetaminophen (Tylenol Liquid) 650 mg PO Q4H PRN PRN PRN Reason: Pain Score 1-10/Temp > 100.7 F Aspirin (Aspirin, Baby) 81 mg PO DAILY@1000 [facility] Last Admin: 08/28/19 09:00 Dose: 81 mg Documented by: Clotrimazole (Lotrimin) 1 applicatio TOPICAL TID [facility]; Protocol Last Admin: 08/28/19 06:18 Dose: 1 applicatio Documented by: Dextrose (D50w Syringe) 0 gm IV X1 PRN; Protocol PRN Reason: Hypoglycemia Enoxaparin Sodium (Lovenox) 90 mg SC Q12@0600,1800 [facility] Last Admin: 08/28/19 06:18 Dose: 90 mg Documented by: Glucagon () 1 mg IM .X1 PRN PRN Reason: Hypoglycemia Hydroxyurea (Hydrea) 500 mg PO BID [facility] Last Admin: 08/28/19 09:00 Dose: 500 mg Documented by: Sodium Chloride () 250 mls @ 15 mls/hr IV .[id number] PRN PRN Reason: Saline Flush Last Infusion: 08/28/19 05:48 Dose: Infused Documented by: Sodium Chloride () 250 mls @ 15 mls/hr IV .[id number] PRN PRN Reason: Additional IVPB Infusion Levothyroxine Sodium (Synthroid) 100 mcg PO DAILY@0600 [facility] Last Admin: 08/28/19 06:18 Dose: 100 mcg Documented by: Ondansetron HCl (Zofran) 4 mg IV Q8H PRN PRN PRN Reason: NAUSEA/VOMITING Pantoprazole Sodium (Protonix) 40 mg PO DAILY [facility] Last Admin: 08/28/19 09:00 Dose: 40 mg Documented by: Phenytoin Sodium (Dilantin) 200 mg PO DAILYCM [facility] Last Admin: 08/28/19 09:07 Dose: 200 mg Documented by: Quetiapine Fumarate (Seroquel) 50 mg PO BID [facility] Last Admin: 08/28/19 09:00 Dose: 50 mg Documented by: Sodium Chloride () 10 - 40 ml IV UD PRN PRN Reason: SALINE FLUSH Last Admin: 08/26/19 21:36 Dose: 10 ml Documented by: STROKE Vital Signs/Narrative: Vital Signs Temp Pulse Resp BP Pulse Ox 08/28/19 09:00 97.3 F L 60 24 H 136/72 H 92 08/28/19 07:30 47 L Medical Necessity - Tobacco Use Smoking Status: Never smoker Assessment/Plan All Active Problems (Last Reviewed 08/13/19 @ 01:[address] Matt Espinoza MD) Pneumonia (Acute) Hypoxia (Acute) COVID-19 (Acute) SARS-associated coronavirus infection (Acute) LI (acute kidney injury) (Acute) 1. Acute hypoxic respiratory failure due to COVID 19 infection extubated; on room air. critical care on board has completed a course of zosyn and also received convalescent plasma on breathing treatment with bronchodilators. titrate oxygen to maintain sats >90% encourage incentive spirometer use 2. COVID 19 infection has completed a course of IV zosyn, and also received convalescent plasma on lovenox therapeutic dose ID on board repeat test was still positive; ID to determine when a repeat testing can be done. 3. Nonstemi: troponins peaked at 1.89. 2D echo showed EF of 65% on lovenox and aspirin patient is still testing positive for COVID; I did discuss with cardiology, and recommendation was for patient to follow up on outpatient basis once he tests negative for COVID. 4. Bradycardia: resolved. HR is now in the 70s 5. Hypernatremia: resolved. Na is now 139. DC D5W 6. thrombocythemia: platelets are up to 780 today. This is an upwards trend; on hydroxyurea 500mg bid. 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 7. LI resolved. Cr is 1.24 nephrology on board 8. Hypothyroidism: On Synthroid. 9. Seizure disorder: Currently on phenytoin. 10. Delirium and agitation: now on seroquel. Nutrition: now on regular diet. GI prophylaxis: On lansoprazole DVT prophylaxis: on therapeutic lovenox Disposition: for dc to TCU; will need negative COVID test before he can be discharged to TCU. ID to determine when repeat testing can be done. Inpatient E&M: 16520 Subs Hosp L2
--- NOTE | 2019-08-28 17:11 | PN.RENAL_ITS ---
Patient Problems: Active and Suspected Problems (Last Reviewed 08/13/19 @ 01:[address] Matt Espinoza MD) Pneumonia (Acute) Hypoxia (Acute) COVID-19 (Acute) SARS-associated coronavirus infection (Acute) LI (acute kidney injury) (Acute) Subjective: Pt was not seen or examined to limit exposure/spread of COVID infection and to c onserve PPE D/W Nurse. No acute events On RA - Physical Exam Vitals/I&O's: Vital Signs Temp Pulse Resp BP Pulse Ox 97.3 F L 57 L 24 H 136/72 H 92 08/28/19 09:00 08/28/19 15:00 08/28/19 09:00 08/28/19 09:00 08/28/19 09:00 Oxygen Flow Rate (L/min) 1 Oxygen Delivery Method Room Air Weight: 93.3 kg Body Mass Index (BMI) 31.1 Intake and Output for Last 24 Hours 08/26/19 08/27/19 08/28/19 23:59 23:59 23:59 Intake Total 2153.33 / 2153.33 2775.00 / 2775.00 2490 / 2490 Output Total 1000 / 1000 1175 / 1175 475 / 475 Balance 1153.33 / 1153.33 1600.00 / 1600.00 2014 Laboratory Results 08/28/19 03:50: WBC 13.7 H, RBC 3.69 L, Hgb 12.5 L, Hct 38.5 L, MCV 104.3 H, MCH 33.9 H, MCHC 32.5, RDW Std Deviation 56.8 H, RDW Coeff of Nacho 14.7 H, Plt Count 780 H*, MPV 10.1, Immature Gran % (Auto) 1.500 H, Neut % (Auto) 82.2 H, Lymph % (Auto) 9.4 L, [place] % (Auto) 4.4, Eos % (Auto) 1.3, Baso % (Auto) 1.2 H, Absolute Neuts (auto) 11.2 H, Absolute Lymphs (auto) 1.29, Nucleated RBC % 0, Diff Path Review July, Platelet Estimate MKD INC, Macrocytosis 1+ 08/28/19 03:50: Sodium 139, Potassium 4.0, Chloride 104, Carbon Dioxide 26.0, An ion Gap 9, BUN 51 H, Creatinine 1.24, Estim Creat Clear Calc 50.69, Est GFR (MDRD) Af Amer 73, Est GFR (MDRD) Non-Af 60, BUN/Creatinine Ratio 41.1 H, Glucose 175 H, Calcium 8.0 L Current Medications Acetaminophen (Tylenol Liquid) 650 mg PO Q4H PRN PRN PRN Reason: Pain Score 1-10/Temp > 100.7 F Aspirin (Aspirin, Baby) 81 mg PO DAILY@1000 [facility] Last Admin: 08/28/19 09:00 Dose: 81 mg Documented by: Clotrimazole (Lotrimin) 1 applicatio TOPICAL TID [facility]; Protocol Last Admin: 08/28/19 16:23 Dose: 1 applicatio Documented by: Dextrose (D50w Syringe) 0 gm IV X1 PRN; Protocol PRN Reason: Hypoglycemia Enoxaparin Sodium (Lovenox) 90 mg SC Q12@0600,1800 [facility] Last Admin: 08/28/19 17:03 Dose: 90 mg Documented by: Glucagon () 1 mg IM .X1 PRN PRN Reason: Hypoglycemia Hydroxyurea (Hydrea) 500 mg PO BID [facility] Last Admin: 08/28/19 09:00 Dose: 500 mg Documented by: Sodium Chloride () 250 mls @ 15 mls/hr IV .[id number] PRN PRN Reason: Saline Flush Last Infusion: 08/28/19 05:48 Dose: Infused Documented by: Sodium Chloride () 250 mls @ 15 mls/hr IV .[id number] PRN PRN Reason: Additional IVPB Infusion Levothyroxine Sodium (Synthroid) 100 mcg PO DAILY@0600 [facility] Last Admin: 08/28/19 06:18 Dose: 100 mcg Documented by: Ondansetron HCl (Zofran) 4 mg IV Q8H PRN PRN PRN Reason: NAUSEA/VOMITING Pantoprazole Sodium (Protonix) 40 mg PO DAILY [facility] Last Admin: 08/28/19 09:00 Dose: 40 mg Documented by: Phenytoin Sodium (Dilantin) 200 mg PO DAILYCM [facility] Last Admin: 08/28/19 09:07 Dose: 200 mg Documented by: Quetiapine Fumarate (Seroquel) 50 mg PO BID [facility] Last Admin: 08/28/19 09:00 Dose: 50 mg Documented by: Sodium Chloride () 10 - 40 ml IV UD PRN PRN Reason: SALINE FLUSH Last Admin: 08/26/19 21:36 Dose: 10 ml Documented by: Medical Necessity - Tobacco Use Smoking Status: Never smoker Assessment/Plan All Active Problems (Last Reviewed 08/13/19 @ 01:[address] Matt Espinoza MD) Pneumonia (Acute) Hypoxia (Acute) COVID-19 (Acute) SARS-associated coronavirus infection (Acute) LI (acute kidney injury) (Acute) LI. normal baseline. LI is from ATN related Covid infection received 4 HD treatments so far kidney function then recovered BP is ok urine output is ok. cr is ok no longer needs HD Hyponatremia: resolved. D5W was stopped 08/27
[2019-08-29] VITALS (12 sets, daily range): BP systolic 109–150; BP diastolic 60–72; PULSE 53–70; RESP 17–23; TEMP 36–37; O2SAT 95–97
[2019-08-29] MEDS: Enoxaparin 100 MG/ML Syringe 90 MG SC ×2 (05:38→17:58)
[2019-08-29] MEDS: Levothyroxine 100 MCG Tablet PO (05:39)
--- NOTE | 2019-08-29 06:10 | PCM.PN.INT ---
Subjective: The patient was seen and examined at the bedside this morning. Events from the last 24 hours have been reviewed. The patient is currently afebrile, hemodynamically stable and maintaining appropriate oxygen saturations on room air. The patient is resting comfortably this morning. No overnight issues were identified by the nursing staff. The patient is frustrated about still being in the hospital. Objective: The patient's most recent lab work, culture data and imaging studies have all been personally reviewed. CTA chest revealed suboptimal opacification of the bilateral pulmonary arteries. No significant PE was identified. However, bilateral groundglass changes were present, most pronounced in the right lower lobe. Coronavirus PCR was positive on August 06. Respiratory viral panel was negative. Strep and urine Legionella antigens were negative. Repeat coronavirus PCR was positive on August 24. General: Alert, No apparent distress HEENT: Atraumatic, PERRLA, Normocephalic Oral: No Gingival or Mucosal Lesions/ Ulcerations Neck: Supple, No Nodes, Trachea Midline Lungs: No rhonchi, No wheeze, No rales, Diminished Cardiovascular: Normal S1, Normal S2, No murmurs, Bradycardic Abdomen: Bowel Sounds Present, Soft, Non Tender Extremities: No clubbing, No cyanosis, No edema Skin: No breakdown Musculoskeletal: No Tenderness to Palpation of Joints or Extremities, No Muscle Wasting Lymphatic: No Cervical, Supraclavicular, or Inguinal Adenopathy Neurological: Cranial nerves II-XII grossly intact, Neuro grossly intact Psych/Mental Status: Normal Affect Vital Signs Temp Pulse Resp BP Pulse Ox 98.3 F 53 L 17 145/63 H 97 08/29/19 02:42 08/29/19 03:52 08/29/19 02:42 08/29/19 02:42 08/29/19 02:42 Oxygen Flow Rate (L/min) 1 Oxygen Delivery Method Room Air Weight: 205 lb 7.533 oz Body Mass Index (BMI) 31.1 Intake and Output for Last 24 Hours 08/27/19 08/28/19 08/29/19 23:59 23:59 23:59 Intake Total 2775.00 / 2775.00 3090 / 3090 200 / 200 Output Total 1175 / 1175 750 / 750 275 / 275 Balance 1600.00 / 1600.00 2340 / 2340 -75 / -75 Labs (Last 48 Hours) 08/28/19 08/28/19 03:50 03:50 WBC 13.7 H RBC 3.69 L Hgb 12.5 L Hct 38.5 L MCV 104.3 H MCH 33.9 H MCHC 32.5 RDW Std Deviation 56.8 H RDW Coeff of Nacho 14.7 H Plt Count 780 H* MPV 10.1 Immature Gran % (Auto) 1.500 H Neut % (Auto) 82.2 H Lymph % (Auto) 9.4 L [place] % (Auto) 4.4 Eos % (Auto) 1.3 Baso % (Auto) 1.2 H Absolute Neuts (auto) 11.2 H Absolute Lymphs (auto) 1.29 Nucleated RBC % 0 Diff Path Review May foll Platelet Estimate MKD INC Macrocytosis 1+ Sodium 139 Potassium 4.0 Chloride 104 Carbon Dioxide 26.0 Anion Gap 9 BUN 51 H Creatinine 1.24 Estim Creat Clear Calc 50.69 Est GFR (MDRD) Af Amer 73 Est GFR (MDRD) Non-Af 60 BUN/Creatinine Ratio 41.1 H Glucose 175 H Calcium 8.0 L Clinical Impression(s) from Imaging Studies Chest X-Ray 08/12/19 22:50 IMPRESSION: Worsening of bilateral pulmonary infiltrates consistent with nonspecific multifocal pneumonia. Electronically Signed: Eriberto Smalls MD at 23:13 EDT , Service support , Chest X-Ray 08/14/19 05:20 IMPRESSION: 1. Suggest advancing endotracheal tube approximately 2 or 3 cm. 2. Unchanged appearance to bilateral multifocal airspace disease consistent with pneumonia. Electronically Signed: Shamika Mistry MD at 8:34 EDT , Service support , Chest X-Ray 08/14/19 07:54 IMPRESSION: 1. Appropriate positioning of endotracheal and enteric tubes. 2. Extensive bilateral heterogeneous airspace consolidations consistent with multifocal pneumonia. There appears to be increasing left basilar airspace consolidation since previous radiograph. Electronically Signed: Shamika Mistry MD at 9:58 EDT , Service support , Chest X-Ray 08/17/19 13:00 IMPRESSION: 1. Left central venous catheter is in the superior vena cava. No pneumothorax. 2. Endotracheal and nasogastric tubes unchanged. 3. Improved aeration at the lung bases. The bilateral infiltrates are otherwise stable. Electronically Signed: Alfonzo Lucero MD at 13:28 EDT , Service support , Chest X-Ray 08/19/19 13:25 IMPRESSION: Progressive bilateral infiltrates. The tip of the right dialysis catheter is at the junction of superior vena cava and right atrium. Electronically Signed: Abdulaziz Romero, at 13:53 EDT , Service support , Chest X-Ray 08/23/19 09:56 IMPRESSION: All the support tubes are in good position. Progressive infiltrate seen in the peripheral aspect of the left lung as well as at the right lung base. Improved aeration of the right upper lobe. Electronically Signed: Abdulaziz Romero, at 12:28 EDT , Service support , Medical Necessity - Tobacco Use Smoking Status: Never smoker Assessment/Plan All Active Problems (Last Reviewed 08/13/19 @ 01:[address] Matt Espinoza MD) Pneumonia (Acute) Hypoxia (Acute) COVID-19 (Acute) SARS-associated coronavirus infection (Acute) LI (acute kidney injury) (Acute) RECOMMENDATIONS: 1. Continue scheduled Seroquel. 2. Continue home hydroxyurea and Dilantin. 3. Continue Lovenox as ordered. 4. Encourage incentive spirometer use and mobilize patient as tolerated. 5. Physical therapy to continue to work with the patient. 6. Plan for repeat coronavirus testing tomorrow. IMPRESSIONS: 1. Acute hypoxemic respiratory failure secondary to COVID-19 infection The patient was evaluated in the emergency department on August 06 with a CTA chest which revealed bilateral groundglass changes. Subsequent COVID testing was positive. Although the patient was initially discharged home, he experienced worsening shortness of breath and hypoxemia, which prompted his hospital admission. Repeat chest imaging did reveal progressive bilateral infiltrates. The patient was initially placed on noninvasive positive pressure ventilatory support but decompensated eventually requiring intubation. The patient did receive convalescent [place] ([place] [id number]) on the evening of August 12. The patient has completed a course of Zosyn under the discretion of infectious diseases. The patient demonstrated slow clinical improvement and was able to be extubated on the morning of August 23. Plan at this time will include weaning of his supplemental oxygen to maintain saturations at or above 90%. Continue systemic anticoagulation with Lovenox as ordered. Encourage incentive spirometer use and mobilize patient as tolerated. 2. Acute kidney injury Improved. Likely related to ATN in the setting of #1, along with hemodynamic instability which was generated as a consequence of sedative utilization. Urine output has improved. 3. Unspecified seizure disorder/hypothyroidism/hypertension/obesity Complicates care, management, recovery and prognosis. Continue home medications as indicated. Physical therapy to continue to work with the patient. This note was generated with Get[employer] dictation software. It may contain incorrect words, spelling, and punctuation that were not noted in checking the note before signing. Inpatient E&M: 90799 Subs Hosp L2
[2019-08-29] MEDS: Phenytoin Na 100 MG Capsule 200 MG PO (08:00)
[2019-08-29] MEDS: Hydroxyurea 500 MG Capsule PO ×2 (08:00→21:43)
[2019-08-29] MEDS: Aspirin 81 MG TAB.CHEW PO (08:00)
[2019-08-29] MEDS: QUEtiapine 25 MG Tablet 50 MG PO ×2 (08:00→21:43)
[2019-08-29] MEDS: Pantoprazole Sodium 40 MG Tablet PO (08:00)
[2019-08-29 08:17] LABS: Absolute Lymphocyte Count 1.21 X10^3/uL (0.83-4.51); Absolute Neutrophil Count 10.6 X10^3/uL (2.0-7.7); Basophil# 0.16 X10^3/uL; Basophil% 1.2 % (0-1); Eosinophil# 0.21 X10^3/uL; Eosinophils% 1.6 % (0-5); Hematocrit 38.1 % (40-54); Hemoglobin 12.6 g/dL (13.0-16.5); Lymphocyte # 1.21 X10^3/ul (4.0); Lymphocyte % 9.3 % (19-41); Mean Corp Hgb Conc 33.1 g/dL (32-36); Mean Corpuscular Hgb 33.9 pg (27.0-32.0); Mean Corpuscular Volume 102.4 fL (80-94); Mean Platelet Vol. 10.1 fl (6.2-12.0); Monocyte# 0.69 X10^3/uL; Monocyte% 5.3 % (0-10); NRBC Flagged by Analyzer 0 % (0-5); Neutrophil # 10.55 X10^3/uL (2.7-7.7); Neutrophil % 81.3 % (47-70); POSITIVE COUNT YES; RBC Distribution Width CV 14.5 % (11.6-14.6); Red Blood Count 3.72 M/mm3 (4.6-6.2)
[2019-08-29 08:21] LABS: Differential Indicated SCAN CRITERIA MET; Platelet Count 827 K/mm3 (150-450)
[2019-08-29 08:33] LABS: Anion Gap 7 (5-15); BUN 46 mg/dL (7-18); BUN/Creat Ratio 38.7 RATIO (10-20); Calcium,Total 8.1 mg/dL (8.5-10.1); Chloride 109 mmol/L (98-107); Creatinine, Serum 1.19 mg/dL (0.70-1.30); EST Glomerular Filtration Rate 63 mL/min (>60); Est Glom Filt Rate - Afr Amer 76 mL/min (>60); Estimated Creatinine Clearance 52.82 ml/min; Glucose 136 mg/dL (74-106); Potassium 3.6 mmol/L (3.5-5.1); Sodium Level 142 mmol/L (136-145)
[2019-08-29 09:17] LABS: Differential Comment SCANNED; Platelet Estimate MKD INC (ADEQ)
--- NOTE | 2019-08-29 09:37 | PN_ITS ---
Patient Problems: Active and Suspected Problems (Last Reviewed 08/13/19 @ 01:[address] Matt Espinoza MD) Pneumonia (Acute) Hypoxia (Acute) COVID-19 (Acute) SARS-associated coronavirus infection (Acute) LI (acute kidney injury) (Acute) Subjective: Patient seen and examined; he complains of feeling sad because he is still in the hospital. Review of systems otherwise negative. Labs and vitals reviewed. Vitals/I&O's: Vital Signs Temp Pulse Resp BP Pulse Ox 97.2 F L 57 L 18 150/71 H 95 08/29/19 08:00 08/29/19 08:00 08/29/19 08:00 08/29/19 08:00 08/29/19 08:00 Oxygen Flow Rate (L/min) 1 Oxygen Delivery Method Room Air Weight: 205 lb 7.533 oz Body Mass Index (BMI) 31.1 Intake and Output for Last 24 Hours 08/27/19 08/28/19 08/29/19 23:59 23:59 23:59 Intake Total 2775.00 / 2775.00 3090 / 3090 460 / 460 Output Total 1175 / 1175 750 / 750 675 / 675 Balance 1600.00 / 1600.00 2340 / 2340 -215 / -215 General: Alert, Cooperative, No apparent distress, HEENT: Atraumatic, PERRLA, EOMI, Normocephalic Oral: Dry Mucosa Neck: Supple, No JVD, Negative Carotid Bruits Lungs: Clear to auscultation, Normal air movement; on 1L of oxygen Cardiovascular: Regular rate, Regular Rhythm, Normal S1, Normal S2, No murmurs Abdomen: Bowel Sounds Present, Soft, Non Tender, Non-Distended, No Hepato- splenomegaly Extremities: No clubbing, No cyanosis, No edema, Capillary Refill Less than 3 Seconds Skin: No rashes, No breakdown Musculoskeletal: No Tenderness to Palpation of Joints or Extremities Lymphatic: No Cervical, Supraclavicular, or Inguinal Adenopathy Neurological: Cranial nerves II-XII grossly intact Psych/Mental Status: calm, normal affect Laboratory Results 08/29/19 08:00: WBC 13.0 H, RBC 3.72 L, Hgb 12.6 L, Hct 38.1 L, MCV 102.4 H, MCH 33.9 H, MCHC 33.1, RDW Std Deviation 55.0 H, RDW Coeff of Nacho 14.5, Plt Count 827 H*, MPV 10.1, Immature Gran % (Auto) 1.300 H, Neut % (Auto) 81.3 H, Lymph % (Auto) 9.3 L, [place] % (Auto) 5.3, Eos % (Auto) 1.6, Baso % (Auto) 1.2 H, Absolute Neuts (auto) 10.6 H, Absolute Lymphs (auto) 1.21, Nucleated RBC % 0, Differential Comment SCANNED, Diff Path Review July, Platelet Estimate MKD INC 08/29/19 08:00: Sodium 142, Potassium 3.6, Chloride 109 H, Carbon Dioxide 26.0, Anion Gap 7, BUN 46 H, Creatinine 1.19, Estim Creat Clear Calc 52.82, Est GFR (MDRD) Af Amer 76, Est GFR (MDRD) Non-Af 63, BUN/Creatinine Ratio 38.7 H, Glucose 136 H, Calcium 8.1 L Diagnostic Data Chest X-Ray 08/23/19 09:56 IMPRESSION: All the support tubes are in good position. Progressive infiltrate seen in the peripheral aspect of the left lung as well as at the right lung base. Improved aeration of the right upper lobe. Electronically Signed: Abdulaziz Romero, at 12:28 EDT , Service support , Current Medications Acetaminophen (Tylenol Liquid) 650 mg PO Q4H PRN PRN PRN Reason: Pain Score 1-10/Temp > 100.7 F Aspirin (Aspirin, Baby) 81 mg PO DAILY@1000 [facility] Last Admin: 08/29/19 08:00 Dose: 81 mg Documented by: Clotrimazole (Lotrimin) 1 applicatio TOPICAL TID [facility]; Protocol Last Admin: 08/29/19 05:38 Dose: 1 applicatio Documented by: Dextrose (D50w Syringe) 0 gm IV X1 PRN; Protocol PRN Reason: Hypoglycemia Enoxaparin Sodium (Lovenox) 90 mg SC Q12@0600,1800 [facility] Last Admin: 08/29/19 05:38 Dose: 90 mg Documented by: Glucagon () 1 mg IM .X1 PRN PRN Reason: Hypoglycemia Hydroxyurea (Hydrea) 500 mg PO BID [facility] Last Admin: 08/29/19 08:00 Dose: 500 mg Documented by: Sodium Chloride () 250 mls @ 15 mls/hr IV .[id number] PRN PRN Reason: Saline Flush Last Infusion: 08/28/19 05:48 Dose: Infused Documented by: Sodium Chloride () 250 mls @ 15 mls/hr IV .[id number] PRN PRN Reason: Additional IVPB Infusion Levothyroxine Sodium (Synthroid) 100 mcg PO DAILY@0600 [facility] Last Admin: 08/29/19 05:39 Dose: 100 mcg Documented by: Ondansetron HCl (Zofran) 4 mg IV Q8H PRN PRN PRN Reason: NAUSEA/VOMITING Pantoprazole Sodium (Protonix) 40 mg PO DAILY [facility] Last Admin: 08/29/19 08:00 Dose: 40 mg Documented by: Phenytoin Sodium (Dilantin) 200 mg PO DAILYCM [facility] Last Admin: 08/29/19 08:00 Dose: 200 mg Documented by: Quetiapine Fumarate (Seroquel) 50 mg PO BID [facility] Last Admin: 08/29/19 08:00 Dose: 50 mg Documented by: Sodium Chloride () 10 - 40 ml IV UD PRN PRN Reason: SALINE FLUSH Last Admin: 08/26/19 21:36 Dose: 10 ml Documented by: STROKE Vital Signs/Narrative: Vital Signs Temp Pulse Resp BP Pulse Ox 08/29/19 08:00 97.2 F L 57 L 18 150/71 H 95 08/29/19 07:00 97 Medical Necessity - Tobacco Use Smoking Status: Never smoker Assessment/Plan All Active Problems (Last Reviewed 08/13/19 @ 01:[address] Matt Espinoza MD) Pneumonia (Acute) Hypoxia (Acute) COVID-19 (Acute) SARS-associated coronavirus infection (Acute) LI (acute kidney injury) (Acute) 1. Acute hypoxic respiratory failure due to COVID 19 infection * extubated; on room air. * critical care on board * has completed a course of zosyn and also received convalescent plasma * on breathing treatment with bronchodilators. * titrate oxygen to maintain sats >90% * encourage incentive spirometer use * * 2. COVID 19 infection * has completed a course of IV zosyn, and also received convalescent plasma * on lovenox therapeutic dose * ID on board * repeat test was still positive; ID to determine when a repeat testing can be done. * 3. Nonstemi: * troponins peaked at 1.89. * 2D echo showed EF of 65% * on lovenox and aspirin * patient is still testing positive for COVID; I did discuss with cardiology, and recommendation was for patient to follow up on outpatient basis once he tests negative for COVID. * 4. Bradycardia: * resolved. * 5. Hypernatremia: resolved. 6. thrombocythemia: * platelets are up to 827; platelets keep trending upwards * on hydroxyurea 500mg bid. 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 7. LI * resolved. Cr is 1.19 * nephrology on board 8. Hypothyroidism: On Synthroid. 9. Seizure disorder: Currently on phenytoin. 10. Delirium and agitation: now on seroquel. Nutrition: now on regular diet. GI prophylaxis: On lansoprazole DVT prophylaxis: on therapeutic lovenox Disposition: for dc to TCU; will need negative COVID test before he can be discharged to TCU. ID to determine when repeat testing can be done. Inpatient E&M: [id number] Subs Hosp L2
[2019-08-30] VITALS (7 sets, daily range): BP systolic 127–148; BP diastolic 61–70; PULSE 50–77; RESP 16–20; TEMP 36.3–36.6; O2SAT 95–100
[2019-08-30] MEDS: Enoxaparin 100 MG/ML Syringe 90 MG SC ×2 (04:22→17:30)
[2019-08-30] MEDS: Levothyroxine 100 MCG Tablet PO (04:23)
--- NOTE | 2019-08-30 06:46 | PCM.PN.INT ---
Subjective: Patient did okay overnight. Patient continues to have periodic confusion, but has remained hemodynamically stable on room air. No seizure activity has been reported. Patient has been urinating in his diaper and denies any dysuria. General: Alert, Cooperative, No apparent distress, Confused, - - No conversational dyspnea. HEENT: Atraumatic, PERRLA, EOMI, Normocephalic, - - No scleral icterus or injection noted Oral: Moist Mucosa, No Gingival or Mucosal Lesions/ Ulcerations Neck: Supple, No JVD, No Nodes, Trachea Midline Lungs: No rhonchi, No wheeze, No rales, Diminished, - - Symmetric expansion. No dullness to percussion. Cardiovascular: Regular Rhythm, Normal S1, Normal S2, No murmurs, Bradycardic, No rub noted, No Gallop Abdomen: Bowel Sounds Present, Soft, Non Tender, Non-Distended, Obese Extremities: No clubbing, No cyanosis, No edema Skin: No rashes, No breakdown Musculoskeletal: No Tenderness to Palpation of Joints or Extremities Lymphatic: No Cervical, Supraclavicular, or Inguinal Adenopathy Neurological: Cranial nerves II-XII grossly intact, Neuro grossly intact, Motor Exam 5/5 strength throughout Psych/Mental Status: Normal Affect, Impulsive Vital Signs Temp Pulse Resp BP Pulse Ox 36.6 C 50 L 16 148/70 H 95 08/30/19 04:00 08/30/19 04:00 08/30/19 04:00 08/30/19 04:00 08/30/19 04:00 Oxygen Flow Rate (L/min) 1 Oxygen Delivery Method Room Air Weight: 93.1 kg Body Mass Index (BMI) 31.1 Intake and Output for Last 24 Hours 08/28/19 08/29/19 08/30/19 23:59 23:59 23:59 Intake Total 3090 / 3090 460 / 460 0 / 0 Output Total 750 / 750 1325 / 1650 325 / 325 Balance 2340 / 2340 -865 / -1190 -325 / -325 Labs (Last 48 Hours) 08/29/19 08/29/19 08:00 08:00 WBC 13.0 H RBC 3.72 L Hgb 12.6 L Hct 38.1 L MCV 102.4 H MCH 33.9 H MCHC 33.1 RDW Std Deviation 55.0 H RDW Coeff of Nacho 14.5 Plt Count 827 H* MPV 10.1 Immature Gran % (Auto) 1.300 H Neut % (Auto) 81.3 H Lymph % (Auto) 9.3 L [place] % (Auto) 5.3 Eos % (Auto) 1.6 Baso % (Auto) 1.2 H Absolute Neuts (auto) 10.6 H Absolute Lymphs (auto) 1.21 Nucleated RBC % 0 Differential Comment SCANNED Diff Path Review May foll Platelet Estimate MKD INC Sodium 142 Potassium 3.6 Chloride 109 H Carbon Dioxide 26.0 Anion Gap 7 BUN 46 H Creatinine 1.19 Estim Creat Clear Calc 52.82 Est GFR (MDRD) Af Amer 76 Est GFR (MDRD) Non-Af 63 BUN/Creatinine Ratio 38.7 H Glucose 136 H Calcium 8.1 L Medical Necessity - Tobacco Use Smoking Status: Never smoker Assessment/Plan All Active Problems (Last Reviewed 08/13/19 @ 01:[address] Matt Espinoza MD) Pneumonia (Acute) Hypoxia (Acute) COVID-19 (Acute) SARS-associated coronavirus infection (Acute) LI (acute kidney injury) (Acute) RECOMMENDATIONS: 1. Continue scheduled Seroquel, home hydroxyurea and Dilantin 2. Continue therapy as tolerated 3. Continue Lovenox as ordered. 4. Encourage incentive spirometer use and mobilize patient as tolerated. 5. Plan for repeat coronavirus testing today. IMPRESSIONS: 1. Acute hypoxemic respiratory failure secondary to COVID-19 infection The patient has done well from a hemodynamic standpoint. Patient did receive convalescent plasma on admission and completed a course of Zosyn under the direction of ID. Patient continues to have positive COVID testing, impacting disposition. Patient is to have a repeat test today. Oxygenation has been doing well on room air. Will likely need a walking oximetry at some point. Plan to continue with systemic anticoagulation with Lovenox. 2. Acute kidney injury Improved. Likely related to ATN in the setting of #1, along with hemodynamic instability which was generated as a consequence of sedative utilization. Urine output is difficult to monitor, but appears to be appropriate. 3. Unspecified seizure disorder/hypothyroidism/hypertension/obesity Complicates care, management, recovery and prognosis. Continue home medications as indicated. Physical therapy to continue to work with the patient. Inpatient E&M: [id number] Subs Hosp L2
[2019-08-30] MEDS: QUEtiapine 25 MG Tablet 50 MG PO ×2 (09:37→21:55)
[2019-08-30] MEDS: Aspirin 81 MG TAB.CHEW PO (09:37)
[2019-08-30] MEDS: Pantoprazole Sodium 40 MG Tablet PO (09:37)
[2019-08-30] MEDS: Hydroxyurea 500 MG Capsule PO ×2 (09:38→21:55)
[2019-08-30] MEDS: Phenytoin Na 100 MG Capsule 200 MG PO (09:38)
--- NOTE | 2019-08-30 10:30 | CASEMGMT ---
Social Work Note SW reviewed notes. Pt is getting retested for COVID today. Pt will need two negative tests for TCU. Once pt has two negative tests, pre-cert will be able to be submitted for TCU. SW to continue to follow. Plan: TCU pending pre-cert and pending COVID tests. Pt needs two negative COVID tests before pre-cert can be submitted. Chelly Vargas [employer], SWITCH[employer]ARD OPERATOR
[2019-08-30 12:21] LABS: Pathologist Review Reviewed
[2019-08-30 12:25] LABS: Pathologist Review Reviewed
--- NOTE | 2019-08-30 12:51 | ONC.CON.INP2 ---
- Problem List (1) Thrombocythemia, essential Status: Chronic Consult Referring Physician: Hospitalist Consult Results: Myeloproliferative neoplasm Subjective Date of Service:: 08/30/19 Chief Complaint: High platelet count History of Present Illness: 79-year-old gentleman with a history of myeloproliferative neoplasm, essential thrombocythemia, on hydroxyurea 1000 mg daily at chronic steady state prior to admission, under the care of an outside bottom painter. Patient hospitalized August 13, 2019 with COVID-19 pneumonia. During hospital stay hydroxyurea was temporarily interrupted (August 16 through August 24) and resumed August 26, 2019. Consultation requested to advise regarding hydroxyurea dosing due to fluctuating platelet count, see table: Laboratory Tests 08/07/19 08/12/19 08/13/19 08:45 21:34 05:05 Plt Count 385 523 H 455 H 08/15/19 08/16/19 08/17/19 03:55 03:30 04:50 Plt Count 631 H 731 H 735 H 08/18/19 08/19/19 08/21/19 02:20 05:10 03:25 Plt Count 780 H* 827 H* 664 H 08/22/19 08/23/19 08/24/19 03:20 03:25 03:50 Plt Count 680 H 581 H 575 H 08/25/19 08/26/19 08/27/19 05:15 04:20 05:20 Plt Count 755 H* 779 H* 700 H 08/28/19 08/29/19 03:50 08:00 Plt Count 780 H* 827 H* Past Medical History: Chronic Problems (Last Reviewed 08/13/19 @ 01:[address] Matt Espinoza MD) Thrombocythemia, essential (Chronic) Past Medical/Surgical History: Past Medical History - Most Recent Inpatient Visit Past Medical History Start: 08/13/19 01:33 Text: Status: Complete Freq: ONCE Protocol: Document 08/13/19 02:16 [facility] (Rec: 08/13/19 02:21 [facility] [id number]) BMI Required to complete PMH What is Patient's BMI 31.1 Past Medical History Unable History Recalled No Query Text:Pt Unable/Family Not Present Neurologic Medical History Hx Stroke/TIA No Hx Dementia/Alzheimer's No Hx Parkinson's Disease No Hx Seizures Yes Hx Multiple Sclerosis No Hx Migraines No Cardiac Medical History VTE Present on Admission No Hx of Deep Vein Thrombosis/VTE/PE No Hx Hypertension No Hx Chest Pain/Angina No Hx Heart Attack No Hx Cardiac Surgery/Stents/Etc. No Hx Heart Failure No Hx Pacemaker/AICD No Hx Irregular Heartbeat and/or Afib No Hx Anticoagulant Therapy No Query Text:(Coumadin, Aspirin, Plavix, Xarelto, etc.) Hx Pain in Legs when Walking/Leg Cramps No Respiratory Medical History Hx COPD No Hx Emphysema No Hx Smoking No Smoking Status Never smoker Hx Smoking Exposure No Hx Tobacco Use in last 12 months No Hx of Pipe Smoking No Hx of Cigar Smoking No Hx Sleep Apnea No Do you snore loudly (louder than talking Yes or can be heard through closed doors)? Do you often feel tired/ fatigued/ Yes sleepy during daytime? Has anyone observed you stop breathing No during sleep? STOP Results Positive GI Medical History Hx Ulcer No Hx Hepatitis No Hx Cirrhosis No Hx GI Bleed No Hx Unplanned Weight Loss No Genitourinary Medical History Indwelling Catheter in Place on Arrival/ No Admission Hx Renal Disease No Hx Dialysis No Musculoskeletal History Hx Arthritis Yes Hx Rheumatoid Arthritis No Endocrine Medical History Hx Diabetes No Hematologic Medical History Hx of Blood Transfusion Yes Hx of Transfusion in last 3 Months No Ever experience any problems with No transfusion(s)? Hx of Preganancy in last 3 Months N/A Nurse Filling Out Transfusion & SHOWMAN Questions: Date: 08/13/19 Time: 02:21 Psycho/Social Medical History Hx Depression No Hx Anxiety Yes Hx Behavior Disorder No Hx Alcohol Use No Hx Substance Use No Other Medical History Hx Blood Disorders No Hx Anemia No Hx Cancer No Hx Drug Resistant Organism No Wound/Pressure Injury Present on Arrival No /Admission Query Text:If yes, chart assessment in Shift/Clinical Findings Central Line/PICC/VAD Present on Arrival No /Admission Antibiotics within last 7 days? Yes Name of Antibiotic (Include dose/# days levaquin taken if known) Last day ATB taken 08/12/19 Methicillin Resistant Staphylococcus aureus Screening Active MRSA No Risk for Readmission Number of Risk Factors 3 At Risk for Readmission Patient is At Risk For Readmission Patient is eligible for Call Back Y Past Medical History (Last Reviewed 08/13/19 @ 01:[address] Matt Espinoza MD) Seizures (Acute) Maternal Family History: - - Mother had migraine headache; and multiple removal of abdominal tumors. Paternal Family History: Dementia - Social History Smoking Status: Never smoker Allergies/Adverse Reactions: Allergy/AdvReac Type Severity Reaction Status Date / Time No Known Allergies Allergy Verified 08/12/19 21:15 Review of Systems Unable to obtain accurate/complete ROS d/t: Patient confused and memory unclear Vital Signs Temperature 97.7 F L 08/30/19 09:35 Temperature Source Temporal 08/30/19 09:35 Pulse Rate 50 L 08/30/19 11:00 Pulse Strength Normal (2+) 08/30/19 10:00 Respiratory Rate 18 08/30/19 09:35 Respiratory Effort Non-Labored 08/29/19 22:00 Respiratory Depth Normal 08/29/19 22:00 Respiratory Pattern Normal 08/29/19 22:00 Blood Pressure 127/69 H 08/30/19 09:35 Blood Pressure Mean 88 08/30/19 09:35 Blood Pressure Source Monitor 08/30/19 09:35 Blood Pressure Position Sitting 08/30/19 09:35 Blood Pressure Location Left Arm 08/30/19 09:35 Pulse Ox 100 08/30/19 09:35 Oxygen Delivery Method Room Air 08/30/19 09:35 Oxygen Flow Rate (L/min) 1 08/27/19 08:34 Fraction of Inspired Oxygen (FIO2) 30 08/24/19 06:00 - Physical Exam General: Cooperative, Confused, Disoriented, - - This was a telemedicine consultation Laboratory Data: Laboratory Tests 08/29/19 08/28/19 Range/Units 08:00 03:50 Diff Path Review Reviewed Reviewed Diagnostic Data: Diagnostic Data Chest X-Ray 08/23/19 09:56 IMPRESSION: All the support tubes are in good position. Progressive infiltrate seen in the peripheral aspect of the left lung as well as at the right lung base. Improved aeration of the right upper lobe. Electronically Signed: Abdulaziz Romero, at 12:28 EDT , Service support , Assessment and Plan 79-year-old gentleman admitted with COVID-19 pneumonia. Hematologic history notable for myeloproliferative neoplasm, most likely essential thrombocytosis. Patient had been under the care of an outside bottom painter, treated with hydroxyurea, base line status hydroxyurea dose of 1000 mg daily according to records. The pre-acute illness and admission platelet count of 385 within normal range. During hospital stay platelets have increased above desired treatment range probably due to multiple factors includin. Acute phase reaction during COVID-19 pneumonia. 2. Temporary interruption of hydroxyurea during acute illness (August 16 through August 24) and resumed August 26, 2019. Recommendation: 1. Continue steady-state baseline pre-acute illness dosing of hydroxyurea 1000 mg daily. 2. Treatment of underlying acute illness. 3. Low-dose aspirin 81 mg daily. 4. Do not advise adjustments of hydroxyurea dosing during fluctuations from acute illness. 5. Check CBC once weekly from the hematology aspect.. 6. Follow-up with outside bottom painter after recovery and discharge These recommendations were discussed over the phone with Dr Askew on August 28, 2019. Consultation was done through telemedicine due to COVID-19 precautions. Jojo Goldstein MD Mobile Therapist, [facility] Divisions of Medical Oncology & Hematology Department of Internal Medicine [place] [phone] This note was generated using a voice recognition system software. Although it was reviewed by the author prior to finalization, it may still contain incorrect words, spelling, and punctuation that were not noted when reviewing prior to saving. If a clinically significant typo or inaccurately typed phrase is noted, please notify the author. Medications: Prescriptions This Visit Medication Instructions Recorded Hydroxyurea [Hydrea] 1,000 mg PO DAILY 08/12/19 Levothyroxine [Synthroid] 100 mcg PO DAILY 08/12/19 Lisinopril [Prinivil] 5 mg PO DAILY 08/12/19 Primary Care Provider: Dr. Sagar Kent III, MD Referring Provider:
--- NOTE | 2019-08-30 13:39 | PN.RENAL_ITS ---
Patient Problems: Active and Suspected Problems (Last Reviewed 08/13/19 @ 01:[address] Matt Espinoza MD) Pneumonia (Acute) Hypoxia (Acute) COVID-19 (Acute) SARS-associated coronavirus infection (Acute) LI (acute kidney injury) (Acute) Subjective: no new events per RN - Physical Exam Vitals/I&O's: Vital Signs Temp Pulse Resp BP Pulse Ox 97.4 F L 64 20 H 137/66 H 97 08/30/19 12:51 08/30/19 12:51 08/30/19 12:51 08/30/19 12:51 08/30/19 12:51 Oxygen Flow Rate (L/min) 1 Oxygen Delivery Method Room Air Weight: 93.1 kg Body Mass Index (BMI) 31.1 Intake and Output for Last 24 Hours 08/28/19 08/29/19 08/30/19 23:59 23:59 23:59 Intake Total 3090 / 3090 460 / 460 400 / 400 Output Total 750 / 750 1325 / 1650 325 / 325 Balance 2340 / 2340 -865 / -1190 75 / 75 Laboratory Results 08/28/19 03:50: Diff Path Review Reviewed 08/29/19 08:00: Diff Path Review Reviewed 08/30/19 13:10: COVID-19 (JONO) Pending Current Medications Acetaminophen (Tylenol Liquid) 650 mg PO Q4H PRN PRN PRN Reason: Pain Score 1-10/Temp > 100.7 F Aspirin (Aspirin, Baby) 81 mg PO DAILY@1000 [facility] Last Admin: 08/30/19 09:37 Dose: 81 mg Documented by: Clotrimazole (Lotrimin) 1 applicatio TOPICAL TID [facility]; Protocol Last Admin: 08/30/19 13:00 Dose: Not Given Documented by: Dextrose (D50w Syringe) 0 gm IV X1 PRN; Protocol PRN Reason: Hypoglycemia Enoxaparin Sodium (Lovenox) 90 mg SC Q12@0600,1800 [facility] Last Admin: 08/30/19 04:22 Dose: 90 mg Documented by: Glucagon () 1 mg IM .X1 PRN PRN Reason: Hypoglycemia Hydroxyurea (Hydrea) 500 mg PO BID [facility] Last Admin: 08/30/19 09:38 Dose: 500 mg Documented by: Sodium Chloride () 250 mls @ 15 mls/hr IV .[id number] PRN PRN Reason: Saline Flush Last Infusion: 08/28/19 05:48 Dose: Infused Documented by: Sodium Chloride () 250 mls @ 15 mls/hr IV .[id number] PRN PRN Reason: Additional IVPB Infusion Levothyroxine Sodium (Synthroid) 100 mcg PO DAILY@0600 [facility] Last Admin: 08/30/19 04:23 Dose: 100 mcg Documented by: Ondansetron HCl (Zofran) 4 mg IV Q8H PRN PRN PRN Reason: NAUSEA/VOMITING Pantoprazole Sodium (Protonix) 40 mg PO DAILY [facility] Last Admin: 08/30/19 09:37 Dose: 40 mg Documented by: Phenytoin Sodium (Dilantin) 200 mg PO DAILYCM [facility] Last Admin: 08/30/19 09:38 Dose: 200 mg Documented by: Quetiapine Fumarate (Seroquel) 50 mg PO BID [facility] Last Admin: 08/30/19 09:37 Dose: 50 mg Documented by: Sodium Chloride () 10 - 40 ml IV UD PRN PRN Reason: SALINE FLUSH Last Admin: 08/26/19 21:36 Dose: 10 ml Documented by: Medical Necessity - Tobacco Use Smoking Status: Never smoker Assessment/Plan All Active Problems (Last Reviewed 08/13/19 @ 01:[address] Matt Espinoza MD) Pneumonia (Acute) Hypoxia (Acute) COVID-19 (Acute) SARS-associated coronavirus infection (Acute) LI (acute kidney injury) (Acute) LI resolved Scr 1.1 in normal range lytes ok euvolemic per RN.Will sign off.Please call with questions or concerns.The patient was not examined to avoid transmission of SarsCov-2 and preserve PPE.
--- NOTE | 2019-08-30 17:54 | PN_ITS ---
Patient Problems: Active and Suspected Problems (Last Reviewed 08/13/19 @ 01:[address] Matt Espinoza MD) Pneumonia (Acute) Hypoxia (Acute) COVID-19 (Acute) SARS-associated coronavirus infection (Acute) LI (acute kidney injury) (Acute) Subjective: Patient was seen and examined today, he is COVID-19 test resulted negative today. Patient has no complaints of any fevers, chills, or shortness of breath. Patient is currently on room air, I reviewed hematology's consultation today including their recommendations. I talked briefly with critical care about the patient's care today. - Physical Exam Vitals/I&O's: Vital Signs Temp Pulse Resp BP Pulse Ox 97.4 F L 64 20 H 137/66 H 97 08/30/19 12:51 08/30/19 12:51 08/30/19 12:51 08/30/19 12:51 08/30/19 12:51 Oxygen Flow Rate (L/min) 1 Oxygen Delivery Method Room Air Weight: 93.1 kg Body Mass Index (BMI) 31.1 Intake and Output for Last 24 Hours 08/28/19 08/29/19 08/30/19 23:59 23:59 23:59 Intake Total 3090 / 3090 460 / 460 400 / 400 Output Total 750 / 750 1325 / 1650 325 / 325 Balance 2340 / 2340 -865 / -1190 75 / 75 General: Alert, Oriented x3, Cooperative, No apparent distress, Well developed HEENT: Atraumatic, PERRLA, EOMI, Normocephalic Oral: Moist Mucosa Neck: Supple, No JVD, Negative Carotid Bruits, Trachea Midline, Thyroid Normal Size and Texture Lungs: Clear to auscultation, Normal air movement, No rhonchi, No wheeze, No rales Cardiovascular: Regular rate, Regular Rhythm, Normal S1, Normal S2, No murmurs, PMI Normal, No rub noted Abdomen: Bowel Sounds Present, Soft, Non Tender, Non-Distended Extremities: No clubbing, No cyanosis, No edema, Capillary Refill Less than 3 Seconds Skin: No rashes, No breakdown Musculoskeletal: No Tenderness to Palpation of Joints or Extremities Neurological: Cranial nerves II-XII grossly intact, Neuro grossly intact, Sensory exam intact to light touch and pain, Coordination normal Psych/Mental Status: Normal Affect, Appropriate, Alert and oriented to time, place, person, mood and affect Laboratory Results 08/28/19 03:50: Diff Path Review Reviewed 08/29/19 08:00: Diff Path Review Reviewed 08/30/19 13:10: COVID-19 (JONO) Not Detected Current Medications Acetaminophen (Tylenol Liquid) 650 mg PO Q4H PRN PRN PRN Reason: Pain Score 1-10/Temp > 100.7 F Aspirin (Aspirin, Baby) 81 mg PO DAILY@1000 [facility] Last Admin: 08/30/19 09:37 Dose: 81 mg Documented by: Clotrimazole (Lotrimin) 1 applicatio TOPICAL TID [facility]; Protocol Last Admin: 08/30/19 13:00 Dose: Not Given Documented by: Dextrose (D50w Syringe) 0 gm IV X1 PRN; Protocol PRN Reason: Hypoglycemia Enoxaparin Sodium (Lovenox) 90 mg SC Q12@0600,1800 [facility] Last Admin: 08/30/19 17:30 Dose: 90 mg Documented by: Glucagon () 1 mg IM .X1 PRN PRN Reason: Hypoglycemia Hydroxyurea (Hydrea) 500 mg PO BID [facility] Last Admin: 08/30/19 09:38 Dose: 500 mg Documented by: Sodium Chloride () 250 mls @ 15 mls/hr IV .[id number] PRN PRN Reason: Saline Flush Last Infusion: 08/28/19 05:48 Dose: Infused Documented by: Sodium Chloride () 250 mls @ 15 mls/hr IV .[id number] PRN PRN Reason: Additional IVPB Infusion Levothyroxine Sodium (Synthroid) 100 mcg PO DAILY@0600 [facility] Last Admin: 08/30/19 04:23 Dose: 100 mcg Documented by: Ondansetron HCl (Zofran) 4 mg IV Q8H PRN PRN PRN Reason: NAUSEA/VOMITING Pantoprazole Sodium (Protonix) 40 mg PO DAILY [facility] Last Admin: 08/30/19 09:37 Dose: 40 mg Documented by: Phenytoin Sodium (Dilantin) 200 mg PO DAILYCM [facility] Last Admin: 08/30/19 09:38 Dose: 200 mg Documented by: Quetiapine Fumarate (Seroquel) 50 mg PO BID [facility] Last Admin: 06/08/20 09:37 Dose: 50 mg Documented by: Sodium Chloride () 10 - 40 ml IV UD PRN PRN Reason: SALINE FLUSH Last Admin: 08/26/19 21:36 Dose: 10 ml Documented by: Medical Necessity - Tobacco Use Smoking Status: Never smoker Assessment/Plan All Active Problems (Last Reviewed 08/13/19 @ 01:[address] Matt Espinoza MD) Pneumonia (Acute) Hypoxia (Acute) COVID-19 (Acute) SARS-associated coronavirus infection (Acute) LI (acute kidney injury) (Acute) #1 acute hypoxic respiratory failure secondary to COVID-19 infection-patient is currently comfortable and on room air at this time #2 acute COVID infection-patient's COVID test today was negative, and will need to be repeated tomorrow before the extended care facility agrees to take the patient, patient will need prior authorization before going to an extended care facility for rehab services #3 acute kidney injury-resolving at this time #4 myeloproliferative disease-essential thrombocytosis-continue hydroxyurea #5 seizure disorder #6 hypothyroidism #7 generalized debility-PT and OT are working with the patient, he will need short-term placement in a alf facility Inpatient E&M: [id number] Subs Hosp L2
[2019-08-31 02:00] VITALS: BP 132/73; PULSE 61; RESP 12; TEMP 36.9; O2SAT 97
[2019-08-31] MEDS: Enoxaparin 100 MG/ML Syringe 90 MG SC ×2 (06:21→18:20)
[2019-08-31] MEDS: Levothyroxine 100 MCG Tablet PO (06:21)
--- NOTE | 2019-08-31 06:30 | PCM.PN.INT ---
Subjective: Patient did well overnight. No acute issues were reported. Patient denies any pain, dysuria, diarrhea, nausea or vomiting. Patient is tolerating a p.o. diet well. Patient appears to be more appropriate this morning and was asking to go to the bathroom rather than use the diaper. Objective: COVID testing was negative yesterday. General: Alert, Oriented x3, Cooperative, No apparent distress, - - Speaking in full sentences. HEENT: Atraumatic, PERRLA, EOMI, Normocephalic, - - No scleral icterus or injection noted. Glasses in place. Oral: Moist Mucosa, No Gingival or Mucosal Lesions/ Ulcerations Neck: Supple, No JVD, No Nodes, Trachea Midline Lungs: Clear to auscultation, No rhonchi, No wheeze, No rales Cardiovascular: Regular rate, Regular Rhythm, Normal S1, Normal S2, No murmurs, No rub noted, No Gallop Abdomen: Bowel Sounds Present, Soft, Non Tender, Non-Distended Extremities: No clubbing, No cyanosis, No edema Skin: No rashes, No breakdown Musculoskeletal: - - Able to go to bathroom with contact-guard using a walker Lymphatic: No Cervical, Supraclavicular, or Inguinal Adenopathy Neurological: Cranial nerves II-XII grossly intact, Neuro grossly intact, Motor Exam 5/5 strength throughout Psych/Mental Status: Normal Affect, Appropriate Vital Signs Temp Pulse Resp BP Pulse Ox 36.9 C 61 12 132/73 H 97 08/31/19 02:00 08/31/19 02:00 08/31/19 02:00 08/31/19 02:00 08/31/19 02:00 Oxygen Flow Rate (L/min) 1 Oxygen Delivery Method Room Air Weight: 93.1 kg Body Mass Index (BMI) 31.1 Intake and Output for Last 24 Hours 08/29/19 08/30/19 08/31/19 23:59 23:59 23:59 Intake Total 460 / 460 1320 / 1320 Output Total 1325 / 1650 325 / 325 Balance -865 / -1190 995 / 995 Labs (Last 48 Hours) 08/28/19 08/29/19 08/29/19 03:50 08:00 08:00 WBC 13.0 H RBC 3.72 L Hgb 12.6 L Hct 38.1 L MCV 102.4 H MCH 33.9 H MCHC 33.1 RDW Std Deviation 55.0 H RDW Coeff of Nacho 14.5 Plt Count 827 H* MPV 10.1 Immature Gran % (Auto) 1.300 H Neut % (Auto) 81.3 H Lymph % (Auto) 9.3 L Beckham % (Auto) 5.3 Eos % (Auto) 1.6 Baso % (Auto) 1.2 H Absolute Neuts (auto) 10.6 H Absolute Lymphs (auto) 1.21 Nucleated RBC % 0 Differential Comment SCANNED Diff Path Review Reviewed Reviewed Platelet Estimate MKD INC Sodium 142 Potassium 3.6 Chloride 109 H Carbon Dioxide 26.0 Anion Gap 7 BUN 46 H Creatinine 1.19 Estim Creat Clear Calc 52.82 Est GFR (MDRD) Af Amer 76 Est GFR (MDRD) Non-Af 63 BUN/Creatinine Ratio 38.7 H Glucose 136 H Calcium 8.1 L COVID-19 (JONO) 08/30/19 13:10 WBC RBC Hgb Hct MCV MCH MCHC RDW Std Deviation RDW Coeff of Nacho Plt Count MPV Immature Gran % (Auto) Neut % (Auto) Lymph % (Auto) Beckham % (Auto) Eos % (Auto) Baso % (Auto) Absolute Neuts (auto) Absolute Lymphs (auto) Nucleated RBC % Differential Comment Diff Path Review Platelet Estimate Sodium Potassium Chloride Carbon Dioxide Anion Gap BUN Creatinine Estim Creat Clear Calc Est GFR (MDRD) Af Amer Est GFR (MDRD) Non-Af BUN/Creatinine Ratio Glucose Calcium COVID-19 (JONO) Not Detected Medical Necessity - Tobacco Use Smoking Status: Never smoker Assessment/Plan All Active Problems (Last Reviewed 08/13/19 @ 01:[address] Matt Espnioza MD) Pneumonia (Acute) Hypoxia (Acute) COVID-19 (Acute) SARS-associated coronavirus infection (Acute) LI (acute kidney injury) (Acute) RECOMMENDATIONS: 1. Continue scheduled Seroquel, home hydroxyurea and Dilantin 2. Continue therapy as tolerated 3. Continue Lovenox as ordered. 4. Encourage incentive spirometer use and mobilize patient as tolerated. 5. Plan for repeat coronavirus testing today. Possible discharge to TCU if negative IMPRESSIONS: 1. Acute hypoxemic respiratory failure secondary to COVID-19 infection The patient has done well from a hemodynamic standpoint. Patient did receive convalescent plasma on admission and completed a course of Zosyn under the direction of ID. Patient has had 1- COVID test. This needs to be repeated today and if negative, disposition to TCU would be appropriate. Oxygenation has been doing well on room air. Will likely need a walking oximetry at some point. Plan to continue with systemic anticoagulation with Lovenox. 2. Acute kidney injury Resolved. Likely related to ATN in the setting of #1, along with hemodynamic instability which was generated as a consequence of sedative utilization. Urine output is difficult to monitor, but appears to be appropriate. 3. Unspecified seizure disorder/hypothyroidism/hypertension/obesity Complicates care, management, recovery and prognosis. Continue home medications as indicated. Physical therapy to continue to work with the patient. Inpatient E&M: [id number] Subs Hosp L2
[2019-08-31] MEDS: QUEtiapine 25 MG Tablet 50 MG PO ×2 (09:56→21:19)
[2019-08-31] MEDS: Pantoprazole Sodium 40 MG Tablet PO (09:56)
[2019-08-31] MEDS: Aspirin 81 MG TAB.CHEW PO (09:56)
[2019-08-31] MEDS: Hydroxyurea 500 MG Capsule PO ×2 (09:57→21:19)
[2019-08-31] MEDS: Phenytoin Na 100 MG Capsule 200 MG PO (09:57)
[2019-08-31 10:00] VITALS: BP 135/58; PULSE 65; RESP 18; TEMP 36.3; O2SAT 98
--- NOTE | 2019-08-31 12:54 | CASEMGMT ---
Social Work Note Pt has had one negative COVID test. Needs two for TCU. MAGUI placed a call to Marva in TCU and left message informing her pt will get retested again today for second COVID test. MAGUI asked Marva if she is able to submit for pre-cert now or if she has to wait until second COVID test comes back. MAGUI waiting for call back. Plan: TCU pending pre-cert. Pt needs two negative COVID tests for TCU. Chelly Vargas [employer], HR ADMINISTRATIVE ASSISTANT
[2019-08-31 16:30] VITALS: BP 130/53; PULSE 68; RESP 18; TEMP 36.1; O2SAT 100
--- NOTE | 2019-08-31 18:39 | PCM.PROGNOTE ---
Patient Problems: Active and Suspected Problems (Last Reviewed 08/13/19 @ 01:[address] Matt Espinoza MD) Pneumonia (Acute) Hypoxia (Acute) COVID-19 (Acute) SARS-associated coronavirus infection (Acute) LI (acute kidney injury) (Acute) Subjective: Patient was seen and examined today, he has no complaints of any chills or shortness of breath. Patient is repeat COVID-19 test today resulted positive-I explained this to the patient, I am not really sure why it was positive today. I asked him to consider going to another extended care facility that has COVID cases already, he is going to talk with his and think about this. - Physical Exam Vitals/I&O's: Vital Signs Temp Pulse Resp BP Pulse Ox 97.0 F L 68 18 130/53 H 100 08/31/19 16:30 08/31/19 16:30 08/31/19 16:30 08/31/19 16:30 08/31/19 16:30 Oxygen Flow Rate (L/min) 1 Oxygen Delivery Method Room Air Weight: 93.1 kg Body Mass Index (BMI) 31.1 Intake and Output for Last 24 Hours 08/29/19 08/30/19 08/31/19 23:59 23:59 23:59 Intake Total 460 / 460 1320 / 1320 240 / 240 Output Total 1325 / 1650 325 / 325 0 / 0 Balance -865 / -1190 995 / 995 240 / 240 General: Alert, Oriented x3, Cooperative, No apparent distress, Well developed HEENT: Atraumatic, PERRLA, EOMI, Normocephalic Oral: Moist Mucosa Neck: Supple, Trachea Midline, Thyroid Normal Size and Texture Lungs: Clear to auscultation, Normal air movement, No rhonchi, No wheeze, No rales Cardiovascular: Regular rate, Regular Rhythm, Normal S1, Normal S2, No murmurs, PMI Normal, No rub noted, No Gallop Abdomen: Bowel Sounds Present, Soft, Non Tender, Non-Distended, No hernias noted Extremities: No clubbing, No cyanosis, No edema, Capillary Refill Less than 3 Seconds Skin: No rashes, No breakdown Neurological: Cranial nerves II-XII grossly intact, Neuro grossly intact, Muscle tone normal, Sensory exam intact to light touch and pain Psych/Mental Status: Normal Affect, Appropriate, Alert and oriented to time, place, person, mood and affect Laboratory Results 08/31/19 14:25: COVID-19 (JONO) Detected Current Medications Acetaminophen (Tylenol Liquid) 650 mg PO Q4H PRN PRN PRN Reason: Pain Score 1-10/Temp > 100.7 F Aspirin (Aspirin, Baby) 81 mg PO DAILY@1000 [facility] Last Admin: 08/31/19 09:56 Dose: 81 mg Documented by: Clotrimazole (Lotrimin) 1 applicatio TOPICAL TID [facility]; Protocol Last Admin: 08/31/19 14:03 Dose: 1 applicatio Documented by: Dextrose (D50w Syringe) 0 gm IV X1 PRN; Protocol PRN Reason: Hypoglycemia Enoxaparin Sodium (Lovenox) 90 mg SC Q12@0600,1800 [facility] Last Admin: 08/31/19 18:20 Dose: 90 mg Documented by: Glucagon () 1 mg IM .X1 PRN PRN Reason: Hypoglycemia Hydroxyurea (Hydrea) 500 mg PO BID [facility] Last Admin: 08/31/19 09:57 Dose: 500 mg Documented by: Sodium Chloride () 250 mls @ 15 mls/hr IV .[id number] PRN PRN Reason: Saline Flush Last Infusion: 08/28/19 05:48 Dose: Infused Documented by: Sodium Chloride () 250 mls @ 15 mls/hr IV .[id number] PRN PRN Reason: Additional IVPB Infusion Levothyroxine Sodium (Synthroid) 100 mcg PO DAILY@0600 [facility] Last Admin: 08/31/19 06:21 Dose: 100 mcg Documented by: Ondansetron HCl (Zofran) 4 mg IV Q8H PRN PRN PRN Reason: NAUSEA/VOMITING Pantoprazole Sodium (Protonix) 40 mg PO DAILY [facility] Last Admin: 08/31/19 09:56 Dose: 40 mg Documented by: [facility] Admin: 08/31/19 09:57 Dose: 200 mg Documented by: Quetiapine Fumarate (Seroquel) 50 mg PO BID [facility] Last Admin: 08/31/19 09:56 Dose: 50 mg Documented by: Sodium Chloride () 10 - 40 ml IV UD PRN PRN Reason: SALINE FLUSH Last Admin: 08/26/19 21:36 Dose: 10 ml Documented by: Medical Necessity - Tobacco Use Smoking Status: Never smoker Assessment/Plan All Active Problems (Last Reviewed 08/13/19 @ 01:[address] Matt Espinoza MD) Pneumonia (Acute) Hypoxia (Acute) COVID-19 (Acute) SARS-associated coronavirus infection (Acute) LI (acute kidney injury) (Acute) #1 acute hypoxic respiratory failure secondary to COVID-19 infection-patient is currently comfortable and on room air at this time, unfortunately his repeat COVID test today was positive #2 acute COVID infection-patient's COVID test today was positive-this is after a negative test yesterday, I asked the patient to consider going to a different nursing facility where they would take a COVID patient and he said he would consider this, I will talk with criminal justice social worker about it tomorrow #3 acute kidney injury-resolving at this time #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
[2019-08-31 20:23] VITALS: BP 170/81; PULSE 80; RESP 18; TEMP 36.4; O2SAT 95
[2019-09-01 02:30] VITALS: BP 168/77; PULSE 64; RESP 17; TEMP 36.3; O2SAT 95
[2019-09-01] MEDS: Levothyroxine 100 MCG Tablet PO (05:33)
[2019-09-01] MEDS: Enoxaparin 100 MG/ML Syringe 90 MG SC (05:33)
--- NOTE | 2019-09-01 08:13 | PCM.PN.INT ---
Subjective: Patient did well overnight. No acute issues were reported. Patient was significantly frustrated this morning that his COVID test came back positive last evening. Spent 45 minutes in the room answering questions. Patient does believe that his strength is improving slowly General: Alert, Oriented x3, Cooperative, No apparent distress, Well developed, Well nourished, - HEENT: Atraumatic - Speaking in full sentences., PERRLA, EOMI, Normocephalic, - - No scleral icterus or injection noted Oral: Moist Mucosa, No Gingival or Mucosal Lesions/ Ulcerations Neck: Supple, No JVD, No Nodes, Trachea Midline Lungs: Clear to auscultation, No rhonchi, No wheeze, No rales Cardiovascular: Regular rate, Regular Rhythm, Normal S1, Normal S2, No murmurs, No rub noted, No Gallop Abdomen: Bowel Sounds Present, Soft, Non Tender, Non-Distended Extremities: No clubbing, No cyanosis, No edema Skin: No rashes, No breakdown Musculoskeletal: No Tenderness to Palpation of Joints or Extremities, - - Standby assist to walk to the bathroom and to the chair Lymphatic: No Cervical, Supraclavicular, or Inguinal Adenopathy Neurological: Cranial nerves II-XII grossly intact, Neuro grossly intact, Motor Exam 5/5 strength throughout Psych/Mental Status: Alert and oriented to time, place, person, mood and affect Vital Signs Temp Pulse Resp BP Pulse Ox 36.3 C L 64 17 168/77 H 95 09/01/19 02:30 09/01/19 02:30 09/01/19 02:30 09/01/19 02:30 09/01/19 02:30 Oxygen Flow Rate (L/min) 1 Oxygen Delivery Method Room Air Weight: 92.4 kg Body Mass Index (BMI) 31.1 Intake and Output for Last 24 Hours 08/30/19 08/31/19 09/01/19 23:59 23:59 23:59 Intake Total 1320 / 1320 490 / 490 120 / 120 Output Total 325 / 325 0 / 0 Balance 995 / 995 490 / 490 120 / 120 Labs (Last 48 Hours) 08/28/19 08/29/19 08/30/19 03:50 08:00 13:10 Diff Path Review Reviewed Reviewed COVID-19 (JONO) Not Detected 08/31/19 14:25 Diff Path Review COVID-19 (JONO) Detected Medical Necessity - Tobacco Use Smoking Status: Never smoker Assessment/Plan All Active Problems (Last Reviewed 08/13/19 @ 01:[address] Matt Espinoza MD) Pneumonia (Acute) Hypoxia (Acute) COVID-19 (Acute) SARS-associated coronavirus infection (Acute) LI (acute kidney injury) (Acute) RECOMMENDATIONS: 1. Continue scheduled Seroquel, home hydroxyurea and Dilantin 2. Continue physical and occupational therapy as tolerated 3. Continue Lovenox as ordered. 4. Encourage incentive spirometer use and mobilize patient as tolerated. 5. Defer to infectious disease on repeat testing 6. SOLANGE dynamically stable on room air. Will sign off from a critical care perspective IMPRESSIONS: 1. Acute hypoxemic respiratory failure secondary to COVID-19 infection The patient has done well from a hemodynamic standpoint. Patient did receive convalescent plasma on admission and completed a course of Zosyn under the direction of ID. Patient continues to test positive on COVID testing. However, patient has remained hemodynamically stable. Oxygenation has been doing well on room air. Will likely need a walking oximetry at some point. Plan to continue with systemic anticoagulation with Lovenox. Will sign off from a critical care perspective. Patient can follow-up 2 weeks after discharge with nurse practitioner to obtain pulmonary function and walking oximetry's to assess respiratory status. 2. Acute kidney injury Resolved. Likely related to ATN in the setting of #1, along with hemodynamic instability which was generated as a consequence of sedative utilization. Urine output is difficult to monitor, but appears to be appropriate. 3. Unspecified seizure disorder/hypothyroidism/hypertension/obesity Complicates care, management, recovery and prognosis. Reinitiate home lisinopril at lower dose. Physical therapy to continue to work with the patient. Inpatient E&M: [id number] Subs Hosp L2
[2019-09-01 08:23] VITALS: BP 144/70; PULSE 63; RESP 16; TEMP 36.2; O2SAT 98
[2019-09-01] MEDS: QUEtiapine 25 MG Tablet 50 MG PO (08:26)
[2019-09-01] MEDS: Aspirin 81 MG TAB.CHEW PO (08:26)
[2019-09-01] MEDS: Pantoprazole Sodium 40 MG Tablet PO (08:26)
[2019-09-01] MEDS: Hydroxyurea 500 MG Capsule PO (08:26)
[2019-09-01] MEDS: Phenytoin Na 100 MG Capsule 200 MG PO (08:27)
[2019-09-01] MEDS: Lisinopril 2.5 MG Tablet PO (09:14)
--- NOTE | 2019-09-01 09:27 | CASEMGMT ---
Social Work Note MAGUI reviewed notes. Pt's second COVID test came back positive yesterday. Pt was spoken to about going to a different SNF that accepts COVID positive patients. MAGUI placed a call to [facility] and spoke with Greg. Greg states that at this time, [facility] is not accepting COVID positive patients. Greg states she can confirm with her administrators but states for right now, they are not taking positive COVID patients. At this time, [facility] is the only SNF in [facility] that is taking COVID positive patients. MAGUI reviewed chart. Pt is alert and orientated x3. SW placed a call to pt. Pt states that he is getting moved to a different room today. SW explained that this worker is trying to get a plan for pt once he leaves [facility]. Pt appeared to have a hard time understanding what this worker was trying to speak to him about. SW offered to call his , pt denied, stating he will call his . MAGUI informed pt that he and his family need to decide on which SNF they would like him to go to at discharge and it would be ideal to have pt accepted to a SNF by the end of the day. MAGUI explained that [facility] is only taking negative COVID tests, so since pt tested positive yesterday, he would not be able to go to [facility] at this time. SW informed pt that this worker will call him again later today. Pt states understanding. SW will call pt again today to continue discussion of discharge plans. Plan: SNF pending acceptance and pre-cert Chelly Vargas [employer] MOTEL RECEPTIONIST, POWER PLANT ENGINEER
--- NOTE | 2019-09-01 11:19 | NURSING ---
Spoke w/ pt's daughter, Nga- update given
--- NOTE | 2019-09-01 13:47 | CASEMGMT ---
Addendum entered by Chelly Vargas 09/01/19 15:31: MAGUI spoke with physician, peer to peer was denied. SW updated physician that pt's Ashly Jauregui is agreeable to taking pt home at discharge and denied the need for HHC. Ashly Jauregui was made aware to call pt's PCP if once pt gets home and pt needs HHC. MAGUI also received call from Marva in [facility] stating peer to peer was denied. SW updated Marva that pt will be going home today. MAGUI spoke with ICU staff. Pt made aware that he is able to discharge today and is wanting to leave soon so his doesn't have to transport pt at night. SW updated ICU staff that physician mentioned earlier that pt was medically ready for discharge today so pt should be able to discharge home. Per previous conversation with Ashly Jauregui, Ashly Jauregui stated that she and pt are able to isolate when pt gets home and she will have family/friends assist with getting groceries and needed items at home so she doesn't have to leave and pt doesn't have to leave the house. Plan: Home today with family support. Pt's Ashly Jauregui denied HHC at this time, instructed to call PCP if HHC is needed once pt returns home. Chelly Vargas [employer], AL[employer] LAW ENFORCEMENT AGENT Addendum entered by Chelly Vargas 09/01/19 14:31: SW received call from pt's Ashly Jauregui. Ashly Jauregui states I can come get Eliud now, I want him home. MAGUI spoke with Ashly Jauregui about taking Eliud home. SW explained that pt walked 120ft stand by. Ashly Jauregui states I am able to help if needed, I can adjust. SW explained that Stand by assist pt didn't need help walking and pt was supervision for bed transfers/bed mobility. SW asked Ashly Jauregui about HHC if she feels pt needs it. Ashly Jauregui states no, I don't think so, I can help with him. MAGUI explained that if she feels that pt needs HHC once he gets discharged home then she can call pt's PCP to get it arranged. SW updated Ashly Jauregui that this worker will update physician and pt may be ready for discharge today. Ashly Jauregui states again she is willing to come get pt today. Original Note: Social Work Note SW updated that pt did well with therapy and therapy mentioned that pt could return home with HHC at discharge. SW reviewed PT/OT. Pt walked 120ft stand by today. MAGUI placed a call to pt's Ashly Jauregui and left message regarding discharge plans. MAGUI then placed a call to pt's daughter Nga. MAGUI spoke with Nga about discharge plans. MAGUI explained that medically pt is ready for discharge and the options are SNF that accept COVID positive patients or home with C. Nga states that she has concerns with hospital discharging a COVID positive patient especially since pt's is older and frail. MAGUI explained that pt came in with positive COVID so it is likely that pt's may have already exposed to it and people get discharge from hospital with COVID a lot and people with COVID sometimes don't even come to a hospital. MAGUI explained that pt and his would just need to isolate and pt's family would need to assist with food, groceries, toiletry, etc. Nga states she hasn't been to pt's home at all because she doesn't want to be exposed. MAGUI stated that family doesn't need to go into pt's home just need to drop items off for pt. Nga states that she will need to talk to pt and pt's again. MAGUI updated Nga that pt may even get denied for SNF as pt is walking well. Nga again states pt is COVID positive and doesn't understand how insurance would deny that. MAGUI explained insurance looks at how far pt walks, with how much assistance and household distance for insurance is 50ft. Nga again states she will talk to pt and pt's again in regards to discharge plans. MAGUI received call from Marva in [facility] stating she did submit pre-cert and [employer] has the intent to deny and peer to peer number is [phone]. Peer to peer has to be completed by noon tomorrow. MAGUI spoke with physician regarding peer to peer. Physician willing to complete peer to peer. MAGUI updated physician. MAGUI updated [facility] in [facility]. Plan: TBD. Pending peer to peer, family decisions Chelly Vargas [employer], ALCOHOL LAW ENFORCEMENT AGENT
--- NOTE | 2019-09-01 14:24 | PCM.PN.ID ---
Patient Problems: Active and Suspected Problems (Last Reviewed 08/13/19 @ 01:[address] Matt Espinoza MD) Pneumonia (Acute) Hypoxia (Acute) COVID-19 (Acute) SARS-associated coronavirus infection (Acute) LI (acute kidney injury) (Acute) Subjective: Feeling much better, working with PT/OT, no fever, breathing well. - Physical Exam Vitals/I&O's: Vital Signs Temp Pulse Resp BP Pulse Ox 97.2 F L 63 16 144/70 H 98 09/01/19 08:23 09/01/19 08:23 09/01/19 08:23 09/01/19 08:23 09/01/19 08:23 Oxygen Flow Rate (L/min) 1 Oxygen Delivery Method Room Air Weight: 92.4 kg Body Mass Index (BMI) 31.1 Intake and Output for Last 24 Hours 08/30/19 08/31/19 09/01/19 23:59 23:59 23:59 Intake Total 1320 / 1320 490 / 490 120 / 120 Output Total 325 / 325 0 / 0 Balance 995 / 995 490 / 490 120 / 120 General: Alert, Cooperative, No apparent distress Lungs: Clear to auscultation, Normal air movement Cardiovascular: Regular rate, Regular Rhythm Abdomen: Soft, Non Tender, Non-Distended Skin: No rashes Laboratory Results 08/31/19 14:25: COVID-19 (JONO) Detected Current Medications Acetaminophen (Tylenol Liquid) 650 mg PO Q4H PRN PRN PRN Reason: Pain Score 1-10/Temp > 100.7 F Aspirin (Aspirin, Baby) 81 mg PO DAILY@1000 [facility] Last Admin: 09/01/19 08:26 Dose: 81 mg Documented by: Clotrimazole (Lotrimin) 1 applicatio TOPICAL TID [facility]; Protocol Last Admin: 09/01/19 05:33 Dose: 1 applicatio Documented by: Dextrose (D50w Syringe) 0 gm IV X1 PRN; Protocol PRN Reason: Hypoglycemia Enoxaparin Sodium (Lovenox) 90 mg SC Q12@0600,1800 [facility] Last Admin: 09/01/19 05:33 Dose: 90 mg Documented by: Glucagon () 1 mg IM .X1 PRN PRN Reason: Hypoglycemia Hydroxyurea (Hydrea) 500 mg PO BID [facility] Last Admin: 09/01/19 08:26 Dose: 500 mg Documented by: Sodium Chloride () 250 mls @ 15 mls/hr IV .[id number] PRN PRN Reason: Saline Flush Last Infusion: 08/28/19 05:48 Dose: Infused Documented by: Sodium Chloride () 250 mls @ 15 mls/hr IV .[id number] PRN PRN Reason: Additional IVPB Infusion Levothyroxine Sodium (Synthroid) 100 mcg PO DAILY@0600 [facility] Last Admin: 09/01/19 05:33 Dose: 100 mcg Documented by: Lisinopril (Zestril) 2.5 mg PO DAILY [facility] Last Admin: 09/01/19 09:14 Dose: 2.5 mg Documented by: Ondansetron HCl (Zofran) 4 mg IV Q8H PRN PRN PRN Reason: NAUSEA/VOMITING Pantoprazole Sodium (Protonix) 40 mg PO DAILY [facility] Last Admin: 09/01/19 08:26 Dose: 40 mg Documented by: Phenytoin Sodium (Dilantin) 200 mg PO DAILYCM [facility] Last Admin: 09/01/19 08:27 Dose: 200 mg Documented by: Quetiapine Fumarate (Seroquel) 50 mg PO BID [facility] Last Admin: 09/01/19 08:26 Dose: 50 mg Documented by: Sodium Chloride () 10 - 40 ml IV UD PRN PRN Reason: SALINE FLUSH Last Admin: 08/26/19 21:36 Dose: 10 ml Documented by: Medical Necessity - Tobacco Use Smoking Status: Never smoker Route of nutrition/ use of supplements: [] Nutritional Intake: [] IV Site: [] Neil Catheter: [] - Assessment/Plan Antibiotics: [] Assessment/Plan: [] Active and Suspected Problems (Last Reviewed 08/13/19 @ 01:[address] Matt Espinoza MD) Pneumonia (Acute) Hypoxia (Acute) COVID-19 (Acute) SARS-associated coronavirus infection (Acute) COVID with hypoxic resp failure - s/p convalescent plasma 08/12. MRSA screen neg. Completed short course empiric zosyn. Cxs neg. O2 much better, fever resolved. Now extubated 08/23. LI resolved. Mental status improving. Repeat covid was (+) after being neg. He is 4 weeks into having symptoms, so I don't think he is at risk of infecting his . Recommend d/c home and he is agreeable. Will follow, d/w Dr. Hook and Dr. Zelaya
--- NOTE | 2019-09-01 15:04 | PCM.DC ---
- Discharge Diagnoses Current Active Problems: Current Active and Chronic Problems (Last Reviewed 08/13/19 @ 01:[address] Matt Espinoza MD) Pneumonia (Acute) Hypoxia (Acute) COVID-19 (Acute) SARS-associated coronavirus infection (Acute) LI (acute kidney injury) (Acute) You will use the following diet at home:: Cardiac Call your doctor if you observe: Fever of 101 or Higher, Shortness of breath Allergies/Adverse Reactions: Allergies No Known Allergies Allergy (Verified 08/12/19 21:15) Medications to take at Discharge Phenytoin Na [Dilantin] 200 mg PO DAILY 10/15/13 Hydroxyurea [Hydrea] 1,000 mg PO DAILY 08/12/19 Levothyroxine [Synthroid] 100 mcg PO DAILY 08/12/19 Aspirin [Aspirin, Baby] 81 mg PO DAILY@1000 tab.chew 09/01/19 Lisinopril [Zestril] 2.5 mg PO DAILY #30 tab 09/01/19 The following prescriptions were given: Lisinopril [Zestril] 2.5 mg PO DAILY #30 tab Transmission Status: Pending to [facility] Primary Care Physician: Sagar Kent III, MD [Primary Care Provider] - Within 1 Week Test Results: Test results from this visit will be discussed in further detail at your follow-up appointment, if applicable. Please Follow Up With: [facility] When: 4-6 weeks Proposed Discharge Date: 09/01/19
--- NOTE | 2019-09-01 15:06 | DS.PCM_ITS ---
Discharge Date and Diagnosis - Problem List Patient Problems: Active and Suspected Problems (Last Reviewed 08/13/19 @ 01:[address] Matt Espinoza MD) Pneumonia (Acute) Hypoxia (Acute) COVID-19 (Acute) SARS-associated coronavirus infection (Acute) LI (acute kidney injury) (Acute) Date of Admission: 08/13/19 Date of Discharge: 09/01/19 - Primary Discharge Diagnosis Acute Problems: Active Problems (Last Reviewed 08/13/19 @ 01:[address] Matt Espinoza MD) Pneumonia (Acute) Hypoxia (Acute) COVID-19 (Acute) SARS-associated coronavirus infection (Acute) LI (acute kidney injury) (Acute) - Secondary Discharge Diagnosis Chronic Problems: Chronic Problems (Last Reviewed 08/13/19 @ 01:[address] Matt Espinoza MD) Thrombocythemia, essential (Chronic) Hospital Course and Treatment Imaging Results: Clinical Impression(s) from Imaging Studies Chest X-Ray 08/12/19 22:50 IMPRESSION: Worsening of bilateral pulmonary infiltrates consistent with nonspecific multifocal pneumonia. Electronically Signed: Eriberto Smalls MD at 23:13 EDT , Service support , Chest X-Ray 08/14/19 05:20 IMPRESSION: 1. Suggest advancing endotracheal tube approximately 2 or 3 cm. 2. Unchanged appearance to bilateral multifocal airspace disease consistent with pneumonia. Electronically Signed: Shamika Mistry MD at 8:34 EDT , Service support , Chest X-Ray 08/14/19 07:54 IMPRESSION: 1. Appropriate positioning of endotracheal and enteric tubes. 2. Extensive bilateral heterogeneous airspace consolidations consistent with multifocal pneumonia. There appears to be increasing left basilar airspace consolidation since previous radiograph. Electronically Signed: Shamika Mistry MD at 9:58 EDT , Service support , Chest X-Ray 08/17/19 13:00 IMPRESSION: 1. Left central venous catheter is in the superior vena cava. No pneumothorax. 2. Endotracheal and nasogastric tubes unchanged. 3. Improved aeration at the lung bases. The bilateral infiltrates are otherwise stable. Electronically Signed: Alfonzo Lucero MD at 13:28 EDT , Service support , Chest X-Ray 08/19/19 13:25 IMPRESSION: Progressive bilateral infiltrates. The tip of the right dialysis catheter is at the junction of superior vena cava and right atrium. Electronically Signed: Abdulaziz Romero, at 13:53 EDT , Service support , Chest X-Ray 08/23/19 09:56 IMPRESSION: All the support tubes are in good position. Progressive infiltrate seen in the peripheral aspect of the left lung as well as at the right lung base. Improved aeration of the right upper lobe. Electronically Signed: Abdulaziz Romero, at 12:28 EDT , Service support , Heme/Onc CCM: Ian ID: Aundrea Nephrology: Serena Alan Procedures: Central line placement, Dialysis, Intubation Summary of Care Provided: The patient is a 79 year old M presents with shortness of breath. 1. acute hypoxic respiratory failure * intubated, extubated 08/24/2019 * 04/25 COVID +/- PNA +/- ALI * completed pip/tazo on 08/16. 2. COVID-19 * received convalescent plasma on 08/12 * seen by ID 3. NSTEMI: * troponins peaked at 1.89 * suspect demand ischemia * echo shows EF 65%. * on LMWH and ASA * follow up with cardiology as outpt 4. LI * received HD * now resolved * nephrology consult * had dialysis on 08/18, and 5. Agitation: * required Seroquel, will stop on DC 6. Debility: Patient walked 120 feet today. Discussed with patient at length about home with home care and halfway facility. He want to go to the transitional care unit, however they declined him because he is still positive for COVID-19. Then looked at [facility]. Did [id number] with Dr. Lim who reviewed the data and declined the patient for halfway facility. I did inform the peer to peer physician that the accepting physician would accept him with being positive for COVID. Patient and his are made aware of that and they are declining home health services at this time. Told the patient that his strength did continue to improve as he has dramatically improved over the past week. 7. Subjective short-term memory deficits. Patient was intubated for 10 days. Patient required quite a bit of medication to sedate him. Told the patient that if his memory issues persist neck several weeks and referral to a geriatric for further evaluation of dementia. I feel this is probably combination of some ICU psychosis, sleep deprivation as well as his general illness. [] Patient Problems: Active and Suspected Problems (Last Reviewed 08/13/19 @ 01:[address] Matt Espinoza MD) Pneumonia (Acute) Hypoxia (Acute) COVID-19 (Acute) SARS-associated coronavirus infection (Acute) LI (acute kidney injury) (Acute) - Physical Exam Vitals/I&O's: Vital Signs Temp Pulse Resp BP Pulse Ox 36.2 C L 63 16 144/70 H 98 09/01/19 08:23 09/01/19 08:23 09/01/19 08:23 09/01/19 08:23 09/01/19 08:23 Oxygen Flow Rate (L/min) 1 Oxygen Delivery Method Room Air Weight: 92.4 kg Body Mass Index (BMI) 31.1 Intake and Output for Last 24 Hours 08/30/19 08/31/19 09/01/19 23:59 23:59 23:59 Intake Total 1320 / 1320 490 / 490 120 / 120 Output Total 325 / 325 0 / 0 Balance 995 / 995 490 / 490 120 / 120 General: Alert, No apparent distress HEENT: Atraumatic, Normocephalic Oral: Moist Mucosa, No Gingival or Mucosal Lesions/ Ulcerations Neck: No Nodes, Trachea Midline Lungs: Clear to auscultation, Normal air movement, No rhonchi, No wheeze, No rales Cardiovascular: Regular rate, Regular Rhythm, Normal S1, Normal S2, No murmurs Abdomen: Bowel Sounds Present, Soft, Non Tender, Non-Distended, No Hepato- splenomegaly Extremities: No edema, No Calf Tenderness Psych/Mental Status: Normal Affect, Appropriate Laboratory Results 08/31/19 14:25: COVID-19 (JONO) Detected Current Medications Acetaminophen (Tylenol Liquid) 650 mg PO Q4H PRN PRN PRN Reason: Pain Score 1-10/Temp > 100.7 F Aspirin (Aspirin, Baby) 81 mg PO DAILY@1000 [facility] Last Admin: 09/01/19 08:26 Dose: 81 mg Documented by: Clotrimazole (Lotrimin) 1 applicatio TOPICAL TID [facility]; Protocol Last Admin: 09/01/19 05:33 Dose: 1 applicatio Documented by: Dextrose (D50w Syringe) 0 gm IV X1 PRN; Protocol PRN Reason: Hypoglycemia Enoxaparin Sodium (Lovenox) 90 mg SC Q12@0600,1800 [facility] Last Admin: 09/01/19 05:33 Dose: 90 mg Documented by: Glucagon () 1 mg IM .X1 PRN PRN Reason: Hypoglycemia Hydroxyurea (Hydrea) 500 mg PO BID [facility] Last Admin: 09/01/19 08:26 Dose: 500 mg Documented by: Sodium Chloride () 250 mls @ 15 mls/hr IV .[id number] PRN PRN Reason: Saline Flush Last Infusion: 08/28/19 05:48 Dose: Infused Documented by: Sodium Chloride () 250 mls @ 15 mls/hr IV .[id number] PRN PRN Reason: Additional IVPB Infusion Levothyroxine Sodium (Synthroid) 100 mcg PO DAILY@0600 [facility] Last Admin: 09/01/19 05:33 Dose: 100 mcg Documented by: Lisinopril (Zestril) 2.5 mg PO DAILY [facility] Last Admin: 09/01/19 09:14 Dose: 2.5 mg Documented by: Ondansetron HCl (Zofran) 4 mg IV Q8H PRN PRN PRN Reason: NAUSEA/VOMITING Pantoprazole Sodium (Protonix) 40 mg PO DAILY [facility] Last Admin: 09/01/19 08:26 Dose: 40 mg Documented by: [facility]in [facility] Admin: 09/01/19 08:27 Dose: 200 mg Documented by: Quetiapine Fumarate (Seroquel) 50 mg PO BID [facility] Last Admin: 09/01/19 08:26 Dose: 50 mg Documented by: Sodium Chloride () 10 - 40 ml IV UD PRN PRN Reason: SALINE FLUSH Last Admin: 08/26/19 21:36 Dose: 10 ml Documented by: Discharge Diet: No Restrictions Call your doctor if you observe: Fever of 101 or Higher, Shortness of breath Home Medications: Medications to take at Discharge Phenytoin Na [Dilantin] 200 mg PO DAILY 10/15/13 Hydroxyurea [Hydrea] 1,000 mg PO DAILY 08/12/19 Levothyroxine [Synthroid] 100 mcg PO DAILY 08/12/19 Aspirin [Aspirin, Baby] 81 mg PO DAILY@1000 tab.chew 09/01/19 Lisinopril [Zestril] 2.5 mg PO DAILY #30 tab 09/01/19 Following Prescrptions Were Given to Patient: Lisinopril [Zestril] 2.5 mg PO DAILY #30 tab Transmission Status: Pending to [id number] Primary Care Physician: Sagar Kent III, MD [Primary Care Provider] - Within 1 Week Please Follow Up With: [facility] When: 4-6 weeks Disposition: Home Minutes spent on discharge:: 32 Patient Condition:: Good Medical Necessity - Tobacco Use Smoking Status: Never smoker Meaningful Use Info Meaningful Use Diagnoses (Choose all that apply): None applicable Inpatient E&M: 14704 Disch Hosp
[2019-09-01 16:08] VITALS: BP 128/59; PULSE 68; RESP 16; TEMP 36.9; O2SAT 95
--- NOTE | 2019-09-02 13:51 | CASEMGMT ---
CONCHA HACKETT DC PHONE CALL DC DATE: 09.01.2019 DC DISPOSITION: Home DC DIAGNOSIS: COVID 19 LACE/STRATA: 01/24 F/U APPTS MADE PRIOR TO DC: no PRESCRIPTIONS ACQUIRED BY PT: yes Intro role of CM to patient @ home. Pt states he is ambulating slowly with walker. States he is doing fair @ home with family support. Pt is thinking he may need Home Health Therapy and CONCHA HACKETT discussed calling PCP office, speak with nurse and request Home Health. Pt states he spoke with Dr. Sagar Kent's III nurse this am. CONCHA HACKETT spoke at length with patient re: concerns for his slow recovery, moderating activity and rest and maintaining diet through he states he does not have much of an appetite. is able to contact PCP office re: request for Home Care. Reviewed dc instructions with patient and if symptoms worsen or he has increased weakness, shortness of breath, to contact PCP or return to ER if emergent. Pt states currently is able to ambulate around home with walker for short time, then rests. No shortness of breath with activity, but pt states he feels weak. Pt able to understand to it will take time to feel back to normal, but CONCHA HACKETT did impress for him to keep in contact with PCP if condition changes. Pt voiced appreciation for the conversation and states his will assist with calls. Sharri SALVADOR RN ACM
== END 2019-09-01 16:15 | disposition home or self-care (01) | DRG 207 ==
LOC: ED 08-13 00:47 → ICU 08-13 02:01
PROVIDERS: Family Medicine; Internal Medicine; Internal Medicine Critical Care Medicine; Internal Medicine Infectious Disease; Internal Medicine Nephrology; Student in an Organized Health Care Education/Training Program; Admitting Provider Hospitalist; Emergency Provider Emergency Medicine; PCP Family Medicine
DX: U07.1 COVID-19 (principal); J12.89 Other viral pneumonia; J96.01 Acute respiratory failure with hypoxia; I21.4 Non-ST elevation (NSTEMI) myocardial infarction; N17.0 Acute kidney failure with tubular necrosis; E87.0 Hyperosmolality and hypernatremia; E87.8 Other disorders of electrolyte and fluid balance, not elsewhere classified; R45.1 Restlessness and agitation; R53.81 Other malaise; G40.909 Epilepsy, unspecified, not intractable, without status epilepticus; E03.9 Hypothyroidism, unspecified; K21.9 Gastro-esophageal reflux disease without esophagitis; D47.3 Essential (hemorrhagic) thrombocythemia; I10 Essential (primary) hypertension; E87.70 Fluid overload, unspecified; D72.810 Lymphocytopenia; R41.3 Other amnesia; E66.9 Obesity, unspecified; Z68.31 Body mass index [BMI] 31.0-31.9, adult; Z72.820 Sleep deprivation; Z78.1 Physical restraint status; Z79.890 Hormone replacement therapy; Z79.899 Other long term (current) drug therapy
CPT/HCPCS: 31500; 31720; 36600; 71045; 80048; 80053; 80061; 81001; 82550; 82728; 82803; 82962; 83605; 83735; 83880; 84100; 84145; 84478; 84484; 85025; 85379; 85610; 85730; 86140; 86704; 86706; 86850; 86900; 86901; 87040; 87070; 87205; 87340; 87449; 87633; 87635; 87641; 87804; 90937; 92507; 92526; 92610; 93005; 93306; 94002; 94003; 94660; 94799; 96365; 96375; 97110; 97116; 97162; 97166; 97530; 97535; 97802; 99251; 99285; G2023; J2997; J7030; J7040; J7050; Q9957; A4216; C1752; G0257; G0463; J0696; J1940; U0003

== ENCOUNTER → 2019-10-13 17:30 | Outpatient (CLI) | payer MEDICARE, SELFPAY ==
[2019-08-14 09:29] VITALS: BMI 31.1
== END ==
PROVIDERS: PCP Family Medicine; Visit Provider Internal Medicine Cardiovascular Disease
DX: U07.1 COVID-19 (principal); D47.1 Chronic myeloproliferative disease; N17.9 Acute kidney failure, unspecified; R79.89 Other specified abnormal findings of blood chemistry
CPT/HCPCS: 87635; G2023; U0003

== ENCOUNTER 2019-10-24 01:55 | Emergency (ER) | payer MEDICARE, SELFPAY ==
[2019-10-20 10:55] VITALS: BMI 29.7
[2019-10-24 01:57] VITALS: BP 196/93; PULSE 80; RESP 16; TEMP 36.7; O2SAT 99; BMI 29.3
--- NOTE | 2019-10-24 02:00 | ED.DCSUM_ITS ---
History of Present Illness Chief Complaint: Abd Pain Narrative: 79-year-old male presenting with left upper quadrant discomfort. He will not describe this as pain. He states that it is burning in nature. Not sharp or stabbing. He denies that it is squeezing in nature. He states that this is been going on this evening and he could not sleep. He states he had an episode of this the other day. He denies nausea, vomiting, diarrhea, constipation. Not had fever or cough. He states he was previously diagnosed with COVID?19 and has recovered since then. He denies chest pain or shortness of breath. No fever or chills. Past Medical History - Allergies and Home Meds Allergies/Adverse Reactions: Allergies No Known Allergies Allergy (Verified 10/20/19 10:56) Primary Care Physician: Sagar Kent III, MD [Primary Care Provider] - Surgical History: - - Kidney stone retrieval Smoking Status: Never smoker - Family History Paternal Family History: Reports: Dementia Maternal Family History: Reports: - - Mother had migraine headache; and multiple removal of abdominal tumors. Review of Systems General: Denies: Chills, Fever Eyes: Denies: Visual changes - bilaterally, Diplopia ENT: Denies: Rhinorrhea, Sore throat Cardiovascular: Denies: Chest pain, Palpitations Respiratory: Denies: Dyspnea, Cough, Dyspnea on exertion Gastrointestinal: Reports: Abdominal pain. Denies: Nausea, Vomiting, Diarrhea, Constipation Musculoskeletal: Denies: Myalgias Skin: Denies: Rash Neurological: Denies: Headache Psych: Denies: Depression, Anxiety Endocrine: Denies: Polyuria, Polydipsia Physical Exam General: Well nourished, Well developed, No Acute Distress Head: Normocephalic, Atraumatic Eyes: Perrl. Negative for: Scleral icterus ENT: Moist mucous membranes, Sinus tenderness Cardiovascular: Regular rate, Regular rhythm Abdomen: Soft, Nondistended, Tender - Patient states he has discomfort but denies pain on palpation. Back: Negative for: CVA tenderness Skin: Normal color, No rash. Negative for: Cyanosis, Diaphoresis, Jaundice Neurological: Alert, Oriented x3 Psychological: Normal affect Diagnostic/Tx/Re-eval Clinical Impression(s) from Imaging Studies Abdomen/Pelvis CT 10/24/19 02:15 IMPRESSION: 1. 3 mm left ureterovesicular junction calculus without significant left-sided hydronephrosis or hydroureter. 2. Nonobstructing bilateral renal calculi measuring up to 4 mm on the right to 3 mm in the left. 3. Cyst versus hemangioma within the posterior inferior splenic pole. 4. Simple appearing left renal cysts. 5. Patchy groundglass infiltrates throughout bilateral lung bases, likely infectious or inflammatory etiology. Electronically Signed: Antoine Nogueira MD at 3:11 EDT Tel , Service support , Chest X-Ray 10/24/19 02:16 IMPRESSION: Mild residual airspace infiltration throughout bilateral mid lungs, significantly improved Electronically Signed: Antoine Nogueira MD at 2:45 EDT Tel , Service support , Laboratory Data 10/24/19 10/24/19 10/24/19 02:25 02:25 04:00 WBC 7.2 RBC 3.83 L Hgb 13.6 Hct 40.4 MCV 105.5 H MCH 35.5 H MCHC 33.7 RDW Std Deviation 61.2 H RDW Coeff of Nacho 15.8 H Plt Count 700 H MPV 8.6 Immature Gran % (Auto) 0.600 Neut % (Auto) 72.6 H Lymph % (Auto) 14.7 L Wilkinson % (Auto) 9.0 Eos % (Auto) 1.8 Baso % (Auto) 1.3 H Absolute Neuts (auto) 5.2 Absolute Lymphs (auto) 1.06 Nucleated RBC % 0 Sodium 140 Potassium 4.0 Chloride 111 H Carbon Dioxide 26.0 Anion Gap 3 L BUN 24 H Creatinine 1.13 Estim Creat Clear Calc 55.63 Est GFR (MDRD) Af Amer 81 Est GFR (MDRD) Non-Af 67 BUN/Creatinine Ratio 21.2 H Glucose 109 H Calcium 9.0 Total Bilirubin 0.40 AST 16 ALT 24 Alkaline Phosphatase 56 Troponin I < 0.015 Total Protein 6.8 Albumin 3.7 Globulin 3.1 Albumin/Globulin Ratio 1.2 Lipase 71 L Urine Color Yellow Urine Clarity Clear Urine pH 6.5 Ur Specific Dixie 1.010 Urine Protein Negative Urine Glucose (UA) Normal Urine Ketones Negative Urine Occult Blood Negative Urine Nitrite Negative Urine Bilirubin Negative Urine Urobilinogen Normal Ur Leukocyte Esterase Negative Urine RBC 0 SEEN Urine WBC 0 SEEN Ur Squamous Epith Cells 0 SEEN Amorphous Sediment 1+ Urine Bacteria 0 SEEN Urine Mucus 0 SEEN - Rhythm Strip Rhythm Strip: Sinus Rhythm - EKG Initial EKG Interpretation: Sinus Rhythm, AV Block - 1st degree - Medical Decision Making Patient presents with vague abdominal pain. He states that it is not even really painful. He was concerned it was cardiac in nature. His EKG is sinus rhythm at 58 bpm. There is no signs of ischemia. He does have a first-degree AV block. He is not specifically having any chest pain or shortness of breath. Troponin is negative. Chest x-ray shows improvement of previous groundglass opacities. Did recently recover from COVID?19 infection. He did have CT abdomen pelvis which does show a small left-sided UVJ stone. I will treat him for this as he has some discomfort. He states he has not taken anything strong for pain at home in the past. I did offer him Ultram so that if he does have pain he can treat it. Patient's will monitor him while he is on it to ensure he does not have adverse reaction. Is given a prescription for Zofran as well. Blood work within normal limits. Patient will be discharged home in stable condition. Impression: 1. History of COVID?19 infection improving 2. 3 mm left-sided UVJ stone ED Disposition - Plan for ED Patient: Disposition: Home or Assisted Living Diagnosis: Kidney stone on left side Instructions: ED Renal Stone w Colic Prescriptions: Ondansetron [Ondansetron Odt] 4 mg PO Q8H PRN PRN #12 tab.rapdis PRN Reason: Nausea Prescription Printed traMADol [Ultram] 50 mg PO Q6H PRN PRN 3 Days #12 tab PRN Reason: Pain Prescription Printed Referrals: Sagar Kent III, MD [Primary Care Provider] -
[2019-10-24 02:02] VITALS: BP 196/93; PULSE 79; RESP 16; TEMP 36.6; O2SAT 99
--- NOTE | 2019-10-24 02:15 | EKG12_ITS ---
Test Reason : ABD PAIN Blood Pressure : / mmHG Vent. Rate : 058 BPM Atrial Rate : 058 BPM P-R Int : 264 ms QRS Dur : 108 ms QT Int : 434 ms P-R-T Axes : 057 -40 062 degrees QTc Int : 426 ms Sinus bradycardia with 1st degree A-V block with occasional Premature ventricular complexes Left axis deviation Nonspecific ST abnormality Abnormal ECG Confirmed by PRINCE MACHADO, RILEY ([id number]), newspaper or periodical editor JAX MOLINA ([id number]) on 10/27/2019 8:38:01 AM Referred By: JW Confirmed By:GEORGE MORRISON MD
--- NOTE | 2019-10-24 02:15 | CT_ITS ---
STUDY: CT ABDOMEN AND PELVIS WITHOUT CONTRAST REASON FOR EXAM: Male, 79 years old. Abdominal pain RADIATION DOSAGE (If Supplied By Facility): CTDIvol = ( 18.93 ) mGy, DLP = ( 1970.39 ) mGycm TECHNIQUE: Transaxial images were obtained from the dome of the diaphragm to the symphysis pubis without oral contrast, and without intravenous contrast. Sagittal and coronal images were reconstructed. Individualized dose optimization techniques were used for this CT. COMPARISON: 08/07/2019 FINDINGS: Patchy groundglass infiltration throughout bilateral lung bases. Calcified nodule the posterior right lung base. The visualized portions of the heart are within normal limits. Normal liver. Normal gallbladder and extrahepatic biliary system. Hypoattenuated lesion within the posterior inferior splenic pole measuring near water density. Normal pancreas. Normal bilateral adrenal glands. Hypoattenuated lesion in the posterior mid pole of the left kidney. Consultations within bilateral renal pelvis sees measuring up to 4 mm on the right and up to 3 mm on the left. No hydronephrosis or hydroureter. 3 mm calculus at the left ureterovesicular junction.. Normal visualized stomach. Normal small intestine. Normal colon. The appendix is visualized and appears normal. Mild atherosclerotic plaque of the abdominal vasculature Normal inferior vena cava. Normal retroperitoneum. No free air or free fluid. Normal urinary bladder. Surgical clips along the left anterolateral abdominal wall. Mild multilevel degenerative change of the spine. No acute skeletal abnormality. CT/Abdomen/Pelvis W IV Cont ONLY IMPRESSION: 1. 3 mm left ureterovesicular junction calculus without significant left-sided hydronephrosis or hydroureter. 2. Nonobstructing bilateral renal calculi measuring up to 4 mm on the right to 3 mm in the left. 3. Cyst versus hemangioma within the posterior inferior splenic pole. 4. Simple appearing left renal cysts. 5. Patchy groundglass infiltrates throughout bilateral lung bases, likely infectious or inflammatory etiology. Electronically Signed: Antoine Nogueira MD at 3:11 EDT Tel , Service support ,
--- NOTE | 2019-10-24 02:16 | RAD_ITS ---
STUDY: X-RAY CHEST REASON FOR EXAM: Male, 79 years old. Epigastric pain TECHNIQUE: Single AP portable view of the chest. COMPARISON: 08/23/2019 FINDINGS: There has been interval removal of the endotracheal tube, nasogastric tube, left internal debris or central venous line and right internal jugular nontunneled dialysis catheter. Minimal residual patchy airspace infiltration throughout bilateral mid lungs, significantly improved in aeration compared to prior imaging. No pleural effusion or pneumothorax. Borderline cardiomegaly, unchanged. Normal mediastinum and dane. Normal visualized pulmonary arteries. Normal visualized aortic arch and descending thoracic aorta. There are diffuse degenerative changes of the visualized thoracic spine. Normal visualized ribs, clavicles, and shoulders. There is no demonstrated abnormality of the visualized soft tissue structures of the upper abdomen. RAD/Chest 1 View (Portable) IMPRESSION: Mild residual airspace infiltration throughout bilateral mid lungs, significantly improved Electronically Signed: Antoine Nogueira MD at 2:45 EDT Tel , Service support ,
[2019-10-24 02:34] LABS: Absolute Lymphocyte Count 1.06 X10^3/uL (0.83-4.51); Absolute Neutrophil Count 5.2 X10^3/uL (2.0-7.7); Basophil# 0.09 X10^3/uL; Basophil% 1.3 % (0-1); Eosinophil# 0.13 X10^3/uL; Eosinophils% 1.8 % (0-5); Hematocrit 40.4 % (40-54); Hemoglobin 13.6 g/dL (13.0-16.5); Lymphocyte # 1.06 X10^3/ul (4.0); Lymphocyte % 14.7 % (19-41); Mean Corp Hgb Conc 33.7 g/dL (32-36); Mean Corpuscular Hgb 35.5 pg (27.0-32.0); Mean Corpuscular Volume 105.5 fL (80-94); Mean Platelet Vol. 8.6 fl (6.2-12.0); Monocyte# 0.65 X10^3/uL; NRBC Flagged by Analyzer 0 % (0-5); Neutrophil # 5.22 X10^3/uL (2.7-7.7); Neutrophil % 72.6 % (47-70); Platelet Count 700 K/mm3 (150-450); RBC Distribution Width CV 15.8 % (11.6-14.6); RBC Distribution Width SD 61.2 fl (35.1-43.9); Red Blood Count 3.83 M/mm3 (4.6-6.2); White Blood Count 7.2 K/mm3 (4.4-11.0)
[2019-10-24 02:52] LABS: ALB/GLOB Ratio 1.2 RATIO (0.9-2.4); AST(SGOT) 16 U/L (15-37); Alanine Aminotransfer ALT/SGPT 24 U/L (16-61); Albumin, Serum 3.7 g/dL (3.2-5.0); Alkaline Phosphatase 56 U/L (45-117); Anion Gap 3 (5-15); BUN 24 mg/dL (7-18); BUN/Creat Ratio 21.2 RATIO (10-20); Chloride 111 mmol/L (98-107); Creatinine, Serum 1.13 mg/dL (0.70-1.30); EST Glomerular Filtration Rate 67 mL/min (>60); Est Glom Filt Rate - Afr Amer 81 mL/min (>60); Estimated Creatinine Clearance 55.63 ml/min; Globulin 3.1 g/dL (2.2-4.2); Glucose 109 mg/dL (74-106); Lipase 71 U/L (73-393); Protein, Total 6.8 g/dL (6.4-8.2); Sodium Level 140 mmol/L (136-145)
[2019-10-24 04:18] VITALS: BP 175/82; PULSE 57; O2SAT 99
[2019-10-24 04:20] LABS: Bacteria 0 SEEN /hpf (None Seen); Mucous, Urine 0 SEEN /hpf (<or=2+); Red Blood Cells-Urine 0 SEEN /hpf (0-5); Squamous Epithelial Cells - UA 0 SEEN /hpf (0-5); White Blood Cells 0 SEEN /hpf (0-5)
[2019-10-24 04:23] LABS: Color, Urine Yellow (Yellow); Glucose, Dipstick Normal (Normal); Ketone-Dipstick Negative (Negative); Leukocyte Esterase-Dipstick Negative /ul (Negative); Nitrite-Dipstick Negative (Negative); Occult Blood-Urine Negative /ul (Negative); Protein-Dipstick Negative (Negative); Urine Bilirubin Dipstick Negative (Negative); Urine Clarity Clear (Clear); Urine Urobilinogen Normal (Normal); Urine pH 6.5 (5.0 - 8.0)
[2019-10-24 04:29] LABS: Amorphous Sediment 1+
== END 2019-10-24 04:46 | disposition home or self-care (01) ==
PROVIDERS: Emergency Provider Student in an Organized Health Care Education/Training Program; PCP Family Medicine
DX: N20.2 Calculus of kidney with calculus of ureter (principal); Z79.82 Long term (current) use of aspirin; Z79.890 Hormone replacement therapy; Z79.899 Other long term (current) drug therapy; Z86.19 Personal history of other infectious and parasitic diseases; Z87.442 Personal history of urinary calculi
CPT/HCPCS: 71045; 74177; 80053; 81001; 83690; 84484; 85025; 93005; 99283; Q9967; A4216

== ENCOUNTER → 2019-11-17 06:55 | Outpatient (CLI) | payer MEDICARE, SELFPAY ==
[2019-10-20 10:55] VITALS: BMI 29.7
[2019-10-24 01:57] VITALS: BMI 29.3
--- NOTE | 2019-11-17 12:33 | STRESSREP_ITS ---
Stress Test Report Exercise myocardial perfusion stress test. 79-year-old man with a history of abnormal cardiac enzymes previous COVID positivity. Stress protocol: Resting EKG demonstrates sinus bradycardia with a rate of 56 bpm. Resting blood pressure is 132/72 mmHg. The patient exercised according to the regular Hemanth protocol with occasional premature ventricular complexes noted. The patient exercised for a total of 6 minutes and 17 seconds. The maximum heart rate attained was 117 bpm which was 82% of maximum predicted heart rate and a workloa d of 7.4 metabolic equivalents. Due to the fact that the patient did not attain 85% of maximum predicted heart rate he was switched to a pharmacologic myocardial perfusion stress test. The resting blood pressure is 132/68 with a peak blood pressure of 170/78 mmHg with exercise. The test was terminated after completion of the protocol. Myocardial perfusion protocol. 14.6 mCi of technetium 99m sestamibi was injected at rest. 0.4 mg of regadenoson was infused. At peak infusion 44.3 mCi of technetium 99m sestamibi was injected stress images were obtained stress and rest images were reconstru cted and compared in the short axis vertical long horizontal long axis. Gated images were also obtained Perfusion SPECT analysis: Review of the stress images demonstrate normal uptake of tracer noted in all areas of myocardium the resting images demonstrate a similar pattern. No areas of reversibility are noted suggest ischemia no previous infarct is noted. Gated SPECT analysis: The gated ejection fraction is 72%. Conclusion: Normal pharmacologic myocardial perfusion stress test. Preserved ejection fraction. Good functional aerobic capacity noted.
== END ==
PROVIDERS: PCP Family Medicine; Referring Provider Internal Medicine Cardiovascular Disease; Visit Provider Internal Medicine Cardiovascular Disease
DX: R79.89 Other specified abnormal findings of blood chemistry (principal); I25.10 Atherosclerotic heart disease of native coronary artery without angina pectoris
CPT/HCPCS: 78452; 93017; A9500; A4216; J2785

== ENCOUNTER 2020-01-16 01:03 | Emergency (ER) | payer MEDICARE, SELFPAY ==
[2020-01-16 01:03] VITALS: BP 188/84; PULSE 61; RESP 15; O2SAT 100
[2020-01-16 01:04] VITALS: BP 212/95; PULSE 61; RESP 18; TEMP 36.6; O2SAT 100; BMI 29.9
--- NOTE | 2020-01-16 01:30 | EKG12_ITS ---
Test Reason : CP Blood Pressure : / mmHG Vent. Rate : 063 BPM Atrial Rate : 063 BPM P-R Int : 266 ms QRS Dur : 096 ms QT Int : 420 ms P-R-T Axes : 051 -51 049 degrees QTc Int : 429 ms Sinus rhythm with 1st degree A-V block with Premature atrial complexes Possible Left atrial enlargement Left anterior fascicular block Left ventricular hypertrophy Abnormal ECG Confirmed by CODY MACHADO, SUKUMAR ([id number]), tape editor JULIA BAEZA ([id number]) on 01/18/2020 10:28:42 AM Referred By: SHINE Confirmed By:SUKUMAR ROSS MD
--- NOTE | 2020-01-16 01:30 | RAD_ITS ---
STUDY: X-RAY CHEST REASON FOR EXAM: Male, 79 years old. HEAVINESS IN CHEST TECHNIQUE: Single frontal view of the chest. COMPARISON: 10/24/2019. FINDINGS: No pneumothorax or pleural effusion. Decreasing pulmonary infiltrates. No new focal pulmonary opacity identified. There is borderline cardiomegaly. Normal mediastinum and dane. Normal visualized pulmonary arteries. Normal visualized aortic arch and descending thoracic aorta. There are diffuse degenerative changes of the visualized thoracic spine. There is degenerative osteoarthritis of the bilateral shoulders. There is no demonstrated abnormality of the visualized soft tissue structures of the upper abdomen. RAD/Chest 1 View (Portable) IMPRESSION: Decreasing pulmonary infiltrates. No new focal pulmonary opacity. Electronically Signed: Hever Currie, at 2:15 EDT Tel , Service support ,
--- NOTE | 2020-01-16 01:34 | ED.VISSUMM ---
- ER Visit Summary Date of Service: 01/16/20 Chief Complaint: Chest pain and palpitations History of Present Illness: The patient is a 79 M who presents with chest pain and palpitations that began tonight. Patient states the pain is a heaviness across his chest. Patient states he had 2 episodes of diaphoresis yesterday and 2 days ago the lasted approximately 20 to 30 minutes. Patient denies any feelings like his heart is racing. Patient denies any shortness of breath or cough. Patient denies any fevers or chills. Patient denies any nausea or vomiting. Patient denies any reflux symptoms. Patient states he does have a history of hypertension and normally takes his blood pressure medicines in the morning. Physical Examination: Vital signs are stable except for an elevated blood pressure of 188/84. Patient is afebrile. Patient is in no acute distress. Oral mucosa is pink and moist. Neck is supple. Trachea is midline. There is no JVD. Heart was regular rate and rhythm. Lungs are clear and equal bilaterally. Abdomen is soft. Bowel sounds are normal. There is no tenderness. Cranial nerves II through XII are intact. There are no focal motor or sensory deficits noted. Extremities are intact. There is no calf tenderness or edema. Test Results: EKG showed normal sinus rhythm with a rate of 63. There are occasional PACs noted. There are no acute ST or T wave changes. There is evidence of left ventricular hypertrophy noted. There is a left anterior fascicular block. This is unchanged compared to previous EKG dated 10/24/2019. Portable chest x-ray was obtained. There is improving pulmonary infiltrates but no acute cardiopulmonary process. This was interpreted by the radiologist and reviewed by myself. CBC and basic metabolic profile were obtained and were essentially within normal limits. Troponin was normal. Emergency Department Course and Treatment: Patient was given aspirin here. Patient was given sublingual nitroglycerin. Patient feels better on reevaluation. Patient had a normal stress test done on 11/17/2019. Since he has had a recent normal stress test and his symptoms are very atypical, I do not feel this is cardiac in nature. Patient was instructed to follow-up with his primary care physician in 3 to 5 days. Patient and family understood and were agreeable with the plan. All questions were answered. Disposition: Discharge home Impression: Chest pain This note was generated with [employer] dictation software. It may contain incorrect words, spelling, and punctuation that were not noted in review of the chart prior to signing ED Disposition - Plan for ED Patient: Disposition: Home or Assisted Living Diagnosis: Chest pain of uncertain etiology Instructions: ED Chest Pain Atypical Unkn Cause Referrals: Sagar Kent III, MD [Primary Care Provider] - 3-5 Days
[2020-01-16 01:37] LABS: Absolute Lymphocyte Count 1.24 X10^3/uL (0.83-4.51); Absolute Neutrophil Count 5.1 X10^3/uL (2.0-7.7); Basophil% 1.4 % (0-1); Eosinophil# 0.14 X10^3/uL; Eosinophils% 1.9 % (0-5); Hematocrit 46.1 % (40-54); Hemoglobin 15.1 g/dL (13.0-16.5); Lymphocyte # 1.24 X10^3/ul (4.0); Lymphocyte % 17.2 % (19-41); Mean Corp Hgb Conc 32.8 g/dL (32-36); Mean Corpuscular Hgb 35.6 pg (27.0-32.0); Mean Corpuscular Volume 108.7 fL (80-94); Mean Platelet Vol. 8.7 fl (6.2-12.0); Monocyte# 0.58 X10^3/uL; NRBC Flagged by Analyzer 0 % (0-5); Neutrophil # 5.14 X10^3/uL (2.7-7.7); Neutrophil % 71.1 % (47-70); Platelet Count 736 K/mm3 (150-450); RBC Distribution Width CV 14.5 % (11.6-14.6); RBC Distribution Width SD 58.6 fl (35.1-43.9); Red Blood Count 4.24 M/mm3 (4.6-6.2); White Blood Count 7.2 K/mm3 (4.4-11.0)
[2020-01-16] MEDS: Aspirin 81 MG TAB.CHEW 324 MG PO (01:43)
[2020-01-16 01:50] LABS: Anion Gap 4 (5-15); BUN 22 mg/dL (7-18); BUN/Creat Ratio 21.6 RATIO (10-20); Calcium,Total 8.8 mg/dL (8.5-10.1); Chloride 110 mmol/L (98-107); Creatinine, Serum 1.02 mg/dL (0.70-1.30); EST Glomerular Filtration Rate 75 mL/min (>60); Est Glom Filt Rate - Afr Amer 91 mL/min (>60); Estimated Creatinine Clearance 61.63 ml/min; Glucose 104 mg/dL (74-106); Potassium 4.3 mmol/L (3.5-5.1); Sodium Level 141 mmol/L (136-145)
[2020-01-16 02:14] VITALS: BP 167/82; PULSE 55; RESP 16; O2SAT 100
[2020-01-16 03:00] VITALS: BP 157/74; PULSE 53; RESP 16; O2SAT 98
== END 2020-01-16 03:02 | disposition home or self-care (01) ==
PROVIDERS: Emergency Provider Emergency Medicine; PCP Family Medicine
DX: R07.9 Chest pain, unspecified (principal); R00.2 Palpitations; I10 Essential (primary) hypertension; E03.9 Hypothyroidism, unspecified; R56.9 Unspecified convulsions; Z79.82 Long term (current) use of aspirin; Z79.890 Hormone replacement therapy; Z79.899 Other long term (current) drug therapy; Z86.19 Personal history of other infectious and parasitic diseases; Z87.01 Personal history of pneumonia (recurrent)
CPT/HCPCS: 71045; 80048; 84484; 85025; 93005; 99283; A4216

== ENCOUNTER → 2020-09-19 14:47 | Outpatient (CLI) | payer MEDICARE, SELFPAY ==
[2020-04-13 10:31] VITALS: BMI 29.5
[2020-09-19 17:22] LABS: Vitamin D,25 Hydroxy 56.5 ng/mL
[2020-09-19 17:38] LABS: Anion Gap 7 (5-15); BUN 34 mg/dL (7-18); BUN/Creat Ratio 25.8 RATIO (10-20); Calcium,Total 8.4 mg/dL (8.5-10.1); Chloride 107 mmol/L (98-107); Creatinine, Serum 1.32 mg/dL (0.70-1.30); EST Glomerular Filtration Rate 56 mL/min (>60); Est Glom Filt Rate - Afr Amer 67 mL/min (>60); Glucose 136 mg/dL (74-106); Potassium 4.2 mmol/L (3.5-5.1); Sodium Level 140 mmol/L (136-145); Thyroid Stim Hormone (TSH) 2.53 uIU/mL (0.358-3.74)
== END ==
PROVIDERS: PCP Family Medicine; Referring Provider Internal Medicine Endocrinology, Diabetes & Metabolism; Visit Provider Internal Medicine Endocrinology, Diabetes & Metabolism
DX: E03.8 Other specified hypothyroidism (principal); E55.9 Vitamin D deficiency, unspecified
CPT/HCPCS: 36415; 80048; 82306; 84443

== ENCOUNTER → 2022-04-02 | Outpatient (CLI) | payer MEDICARE, SELFPAY ==
[2022-04-02 14:04] LABS: Vitamin D,25 Hydroxy 73.4 ng/mL
[2022-04-02 14:12] LABS: Anion Gap 5 (5-15); BUN 31 mg/dL (7-18); BUN/Creat Ratio 24.4 RATIO (10-20); Calcium,Total 8.6 mg/dL (8.5-10.1); Chloride 106 mmol/L (98-107); Creatinine, Serum 1.27 mg/dL (0.70-1.30); EST Glomerular Filtration Rate 58 mL/min (>60); Est Glom Filt Rate - Afr Amer 70 mL/min (>60); Glucose 120 mg/dL (74-106); Potassium 4.8 mmol/L (3.5-5.1); Sodium Level 140 mmol/L (136-145); Thyroid Stim Hormone (TSH) 3.41 uIU/mL (0.358-3.74)
== END | disposition home or self-care (01) ==
LOC: LAB 13:07
PROVIDERS: PCP Family Medicine; Referring Provider Internal Medicine Endocrinology, Diabetes & Metabolism; Visit Provider Internal Medicine Endocrinology, Diabetes & Metabolism
DX: E03.8 Other specified hypothyroidism (principal); E55.9 Vitamin D deficiency, unspecified
CPT/HCPCS: 36415; 80048; 82306; 84443

== ENCOUNTER → 2022-09-27 | Outpatient (CLI) | payer MEDICARE, SELFPAY ==
[2022-09-27 11:00] LABS: Anion Gap 3 (5-15); BUN 28 mg/dL (7-18); BUN/Creat Ratio 23.3 RATIO (10-20); Calcium,Total 8.8 mg/dL (8.5-10.1); Chloride 108 mmol/L (98-107); EST Glomerular Filtration Rate 62 mL/min (>60); Est Glom Filt Rate - Afr Amer 75 mL/min (>60); Glucose 111 mg/dL (74-106); Potassium 4.9 mmol/L (3.5-5.1); Sodium Level 138 mmol/L (136-145); Thyroid Stim Hormone (TSH) 4.94 uIU/mL (0.358-3.74)
== END | disposition home or self-care (01) ==
LOC: LAB 09:40
PROVIDERS: PCP Family Medicine; Referring Provider Internal Medicine Endocrinology, Diabetes & Metabolism; Visit Provider Internal Medicine Endocrinology, Diabetes & Metabolism
DX: E03.8 Other specified hypothyroidism (principal)
CPT/HCPCS: 36415; 80048; 84443

== ENCOUNTER 2022-10-08 12:25 | Emergency (ER) | payer MEDICARE, SELFPAY ==
[2022-10-08 12:26] VITALS: BP 158/80; PULSE 61; RESP 14; TEMP 36.2; O2SAT 100; BMI 31.4
[2022-10-08] MEDS: Dicyclomine 20 MG/2 ML Vial IM (13:31)
[2022-10-08] MEDS: Ketorolac 15 MG/ML Vial IV (13:31)
[2022-10-08] MEDS: 0.9% Normal Saline 1,000 ML 125 ML IV (13:33)
[2022-10-08 13:39] LABS: Bacteria 0 SEEN /hpf (None Seen); Mucous, Urine 0 SEEN /hpf (<or=2+); Red Blood Cells-Urine 0 SEEN /hpf (0-5); Squamous Epithelial Cells - UA 0 SEEN /hpf (0-5); White Blood Cells 0 SEEN /hpf (0-5)
[2022-10-08 13:42] LABS: Absolute Lymphocyte Count 0.83 X10^3/uL (0.83-4.51); Absolute Neutrophil Count 3.7 X10^3/uL (2.0-7.7); Basophil# 0.07 X10^3/uL; Basophil% 1.4 % (0-1); Color, Urine Yellow (Yellow); Differential Indicated SCAN CRITERIA MET; Eosinophil# 0.07 X10^3/uL; Eosinophils% 1.4 % (0-5); Glucose, Dipstick Normal (Normal); Hematocrit 41.2 % (40-54); Ketone-Dipstick Negative (Negative); Leukocyte Esterase-Dipstick Negative /ul (Negative); Lymphocyte # 0.83 X10^3/ul (0.83-4.51); Lymphocyte % 16.3 % (19-41); Mean Corpuscular Hgb 39.2 pg (27.0-32.0); Mean Corpuscular Volume 115.4 fL (80-94); Mean Platelet Vol. 8.8 fl (6.2-12.0); Monocyte# 0.37 X10^3/uL; Monocyte% 7.3 % (0-10); NRBC Flagged by Analyzer 0 % (0-5); Neutrophil # 3.74 X10^3/uL (2.7-7.7); Neutrophil % 73.4 % (47-70); Nitrite-Dipstick Negative (Negative); Occult Blood-Urine Negative /ul (Negative); POSITIVE MORPHOLOGY YES; Platelet Count 612 K/mm3 (150-450); Protein-Dipstick Negative (Negative); RBC Distribution Width CV 15.1 % (11.6-14.6); RBC Distribution Width SD 65.1 fl (35.1-43.9); Red Blood Count 3.57 M/mm3 (4.6-6.2); Specific Gravity, Urine 1.015 (1.002-1.030); Urine Bilirubin Dipstick Negative (Negative); Urine Clarity Clear (Clear); Urine Urobilinogen 1 mg/dl (Normal); White Blood Count 5.1 K/mm3 (4.4-11.0)
--- NOTE | 2022-10-08 13:45 | RAD_ITS ---
INDICATION: Pain EXAMINATION/TECHNIQUE: X-RAY - XR Abdomen Series W/ Chest 1 View COMPARISON: Prior studies dated: CT of the chest dated August 07, [address] of the abdomen and pelvis dated October 24, 2019 FINDINGS: --Chest: LINES/DEVICES: None. LUNGS: No consolidation, edema or effusion. No pneumothorax. MEDIASTINUM AND CARDIOVASCULAR STRUCTURES: Cardiac silhouette not enlarged. Central airways and mediastinal contour are unremarkable. BONES AND SOFT TISSUES: No acute findings. --Abdomen: BOWEL GAS PATTERN: There are a few air-fluid levels within the right abdomen within nondistended loops of bowel, a nonspecific finding. FREE AIR: None visualized. ORGANOMEGALY: Not seen. CALCIFICATIONS: No abnormal calcifications observed. BONES AND SOFT TISSUES: There is evidence of prior lower left anterior abdominal wall repair. RAD/Acute Abdomen Inc Chest IMPRESSION: Nonspecific bowel gas pattern. Electronically Signed: Nedra Barkley MD at 14:14 EDT ,
[2022-10-08 14:01] LABS: AST(SGOT) 37 U/L (15-37); Alanine Aminotransfer ALT/SGPT 31 U/L (16-61); Albumin, Serum 3.4 g/dL (3.2-5.0); Alkaline Phosphatase 60 U/L (45-117); Anion Gap 6 (5-15); BUN 28 mg/dL (7-18); BUN/Creat Ratio 21.5 RATIO (10-20); Calcium,Total 8.4 mg/dL (8.5-10.1); Chloride 109 mmol/L (98-107); EST Glomerular Filtration Rate 56 mL/min (>60); Est Glom Filt Rate - Afr Amer 68 mL/min (>60); Estimated Creatinine Clearance 46.01 ml/min; Globulin 3.3 g/dL (2.2-4.2); Glucose 120 mg/dL (74-106); Lipase 28 U/L (13-75); Potassium 4.4 mmol/L (3.5-5.1); Protein, Total 6.7 g/dL (6.4-8.2); Sodium Level 139 mmol/L (136-145); Troponin-I HS 9 pg/mL (3.0-78.0)
[2022-10-08 14:17] LABS: Lactic Acid 1.1 mmol/L (0.4-1.9)
[2022-10-08] MEDS: Mag Hydrox/Al Hydrox/Simeth 30 ML UDC PO (14:25)
[2022-10-08 14:35] LABS: Anisocytosis 1+
--- NOTE | 2022-10-08 15:29 | EX.ED.DYSGE1 ---
HPI History of Present Illness Chief Complaint: Abd Pain Narrative Narrative: Patient is a 82-year-old male who is presenting to the ER with midepigastric discomfort and some bloating. Patient ate a bologna sandwich that was 1 week old around 11:00 today for lunch, and shortly thereafter he started having burning sensation, midepigastric discomfort, nausea with no vomiting. Patient had upper abdominal bloating for the past several hours. Patient states he had nausea no vomiting. No diarrhea or constipation. No chest pain or shortness of breath. Patient does not typically have any type of acid reflux. Patient does not feel well, so he came to the ER with his . Patient took a medication today as well around 11:00 and started noticing some of his symptoms 5 to 10 minutes later. Patient also had a tetanus update yesterday as well. No sick contacts, no other acute complaints. [facility] Medical History LI (acute kidney injury) (08/13/19) COVID-19 (08/13/19) Elevated troponin I level Essential (primary) hypertension History of non-ST elevation myocardial infarction (NSTEMI) (08/13/19) Hypothyroidism Myeloproliferative neoplasm BARTOLO (obstructive sleep apnea) Renal calculi SARS-associated coronavirus infection (08/13/19) Seizures Thrombocythemia, essential Home Medications hydroxyurea 500 mg capsule 1,000 mg PO DAILY Check with primary doctor 08/12/19 [History Last Taken 08/12/19] aspirin 81 mg chewable tablet 81 mg PO DAILY@1000 09/01/19 [Rx Last Taken Unknown] phenytoin sodium extended 100 mg capsule 300 mg PO DAILY seizures 10/20/19 [History Last Taken Unknown] ergocalciferol (vitamin D2) 1,250 mcg (50,000 unit) capsule 50,000 unit PO QWEEK 04/13/20 [History Last Taken Unknown] lisinopril 20 mg-hydrochlorothiazide 25 mg tablet 1 tab PO DAILY #90 tabs 04/13/20 [Rx Last Taken Unknown] thiamine HCl (vitamin B1) 250 mg tablet (Vitamin B-1) 500 mg PO DAILY 04/13/20 [History Last Taken Unknown] tamsulosin 0.4 mg capsule 0.4 mg PO DAILY 10/11/20 [History Last Taken Unknown] levothyroxine 137 mcg tablet (Synthroid) 137 mcg PO DAILY 10/09/21 [History Last Taken Unknown] memantine 5 mg tablet 5 mg PO DAILY 10/09/21 [History Last Taken Unknown] phenytoin sodium extended 30 mg capsule (Dilantin) 60 mg PO DAILY 10/09/21 [History Last Taken Unknown] dicyclomine 10 mg capsule 10 mg PO TIDAC #20 CAPSULES 10/08/22 [Rx Last Taken Unknown] ondansetron 4 mg disintegrating tablet 4 mg PO Q8H PRN PRN Nausea #10 tabs 10/08/22 [Rx Last Taken Unknown] Allergy/AdvReac Type Severity Reaction Status Date / Time No Known Allergies Allergy Verified 10/08/22 12:26 Family History Brother Heart disease, Onset Age: 69 AVR Surgical History Status post insertion of dialysis catheter (08/19/19) Social History Smoking Status: Never smoker ROS ROS ED ROS Narrative REVIEW OF SYSTEMS: Unless otherwise stated in this report the patient's positive and negative responses for review of systems for constitutional, eyes, ENT, cardiovascular, respiratory, gastrointestinal, neurological, , musculoskeletal, and integument systems and related systems to the presenting problem are either stated in the history of present illness or were not pertinent or were negative for the symptoms and/or complaints related to the presenting medical problem. EXAM Physical Exam Narrative Exam Narrative: Vital signs reviewed and patient is not hypoxic. General: The patient appears well and in no apparent distress. Patient is resting comfortably on cart. Not toxic, lethargic, or listless. Skin: Warm, dry, no pallor noted. There is no rash noted. Head: Normocephalic, atraumatic Eye: Normal conjunctiva, no drainage, EOMI. PERRL. Ears, Nose, Mouth, and Throat: oral mucosa is moist. Nares patent. Mouth without vesicles. Cardiovascular: Regular Rate and Rhythm, no murmurs, gallops, or rubs Respiratory: Patient is in no distress, no accessory muscle use, lungs are clear to auscultation, no wheezing, rales or rhonchi Back: non-tender, no CVA tenderness bilaterally to percussion. NO CTLS midline or paraspinal tenderness to palpation. GI: Soft, obese, mild midepigastric tenderness to palpation, minimal distention per patient, no peritoneal signs, no flank pain bilateral, no rash, no rigidity or tympany, bowel sounds x4, otherwise no tenderness to palpation, no masses appreciated. No rebound, guarding, or rigidity noted. Musculoskeletal: The patient has full range of motion of all extremities and joints with no difficulty. Patient has no motor, no sensory deficits. Neurological: A&O x4, normal speech, no focal neurological deficits. Psychiatric: Cooperative Const Vital Signs: 10/08/22 12:26 Temperature 97.2 F L Temperature Source Temporal Pulse Rate 61 Respiratory Rate 14 Blood Pressure 158/80 H Blood Pressure Mean 106 Pulse Ox 100 Oxygen Delivery Method Room Air MDM MDM MDM Narrative Medical decision making narrative: Patient was given IV fluids, given IV medication to help with his symptoms. Patient's testing shows no acute findings. Chest x-ray and abdominal x-ray show no acute obstruction, nonspecific bowel gas pattern. Patient does feel significantly better at discharge than he did at home, and also compared to when he first came in the door. Patient was sent home with prescription for Zofran and Bentyl to use as needed. Patient to continue increased fluids. Patient to continue take his medication daily in the morning, if he continues to have symptoms of indigestion, or his upset stomach after taking his medication, then patient will follow-up with his PCP who prescribes it. Patient understands this, happy with testing in feeling better than he did when he first initially came into the ER. Lab Data Attestation: I reviewed the patient's lab results. Labs: Laboratory Results - last 24 hr 10/08/22 12:38 WBC 5.1 RBC 3.57 L Hgb 14.0 Hct 41.2 MCV 115.4 H MCH 39.2 H MCHC 34.0 RDW Std Deviation 65.1 H RDW Coeff of Nacho 15.1 H Plt Count 612 H MPV 8.8 Immature Gran % (Auto) 0.200 Neut % (Auto) 73.4 H Lymph % (Auto) 16.3 L [place] % (Auto) 7.3 Eos % (Auto) 1.4 Baso % (Auto) 1.4 H Absolute Neuts (auto) 3.7 Absolute Lymphs (auto) 0.83 Nucleated RBC % 0 Anisocytosis 1+ Sodium 139 Potassium 4.4 Chloride 109 H Carbon Dioxide 24.0 Anion Gap 6 BUN 28 H Creatinine 1.30 Estim Creat Clear Calc 46.01 Est GFR (MDRD) Af Amer 68 Est GFR (MDRD) Non-Af 56 L BUN/Creatinine Ratio 21.5 H Glucose 120 H Lactic Acid 1.1 Calcium 8.4 L Total Bilirubin 0.50 AST 37 ALT 31 Alkaline Phosphatase 60 Troponin I High Sens 9 Total Protein 6.7 Albumin 3.4 Globulin 3.3 Albumin/Globulin Ratio 1.0 Lipase 28 Urine Color Yellow Urine Clarity Clear Urine pH 6.0 Ur Specific [place] 1.015 Urine Protein Negative Urine Glucose (UA) Normal Urine Ketones Negative Urine Occult Blood Negative Urine Nitrite Negative Urine Bilirubin Negative Urine Urobilinogen 1 H Ur Leukocyte Esterase Negative Urine RBC 0 SEEN Urine WBC 0 SEEN Ur Squamous Epith Cells 0 SEEN Urine Bacteria 0 SEEN Urine Mucus 0 SEEN Radiography X-Ray: Read by ED Physician (Abdominal x-ray with AP chest x-ray read by Dr. Lawson shows no acute cardiopulmonary disease, no infiltrate, no effusion. No air-fluid levels, no obstruction, no acute abdominal findings. Nonspecific bowel gas pattern.) Diagnostic Testing: Clinical Impression(s) from Imaging Studies Acute Abdomen Series 10/08/22 13:45 IMPRESSION: Nonspecific bowel gas pattern. Electronically Signed: Nedra Barkley MD at 14:14 EDT Reading Location ID and State: [facility] / [place] Tel , Service support , EKG Initial EKG: Attestation: I personally reviewed and interpreted this EKG as follows: Comments: EKG interpretation. Sinus bradycardia at 50 beats a minute. Left axis deviation. First-degree AV block, 296 SD interval. QTc of 404, no acute ST elevation. Discharge Plan Triage Chief Complaint: Abd Pain ED Provider: Dennys Lawson Dx/Rx/DC Orders Clinical Impression: Midepigastric pain, Abdominal pain, Nausea Instructions: Abdominal Pain, ED Abdominal Pain Unkn Cause Male... Prescriptions: New ondansetron [ondansetron] 4 mg tablet,disintegrating 4 mg PO Q8H PRN PRN (Reason: Nausea) Qty: 10 0RF dicyclomine 10 mg capsule 10 mg PO TIDAC Qty: 20 0RF No Action thiamine HCl (vitamin B1) [Vitamin B-1] 250 mg tablet 500 mg PO DAILY ergocalciferol (vitamin D2) 1,250 mcg (50,000 unit) capsule 50,000 unit PO QWEEK lisinopril-hydrochlorothiazide 20-25 mg tablet 1 tab PO DAILY Qty: 90 4RF tamsulosin 0.4 mg capsule 0.4 mg PO DAILY memantine 5 mg tablet 5 mg PO DAILY Patient Comments: TAKE 1 TABLET BY MOUTH ONCE DAILY levothyroxine [Synthroid] 137 mcg tablet 137 mcg PO DAILY Dilantin 30 mg capsule 60 mg PO DAILY Patient Comments: TAKE 2 CAPSULES BY MOUTH ONCE DAILY phenytoin sodium extended 100 mg capsule 300 mg PO DAILY hydroxyurea 500 MG capsule 1,000 mg PO DAILY aspirin 81 MG tablet,chewable 81 mg PO DAILY@1000 0RF Primary Care Provider: Nimesh Daigle Referrals: Nimesh Daigle MD [Primary Care Provider] - Activity Restrictions/Additional Instructions: Follow-up with PCP if no improvement, or if you have intractable nausea, vomiting, pain, return to the ER. Disposition Disposition: Home, Self Care
== END 2022-10-08 16:09 | disposition home or self-care (01) ==
PROVIDERS: Emergency Provider Emergency Medicine; PCP Family Medicine; Visit Provider Emergency Medicine
DX: R10.13 Epigastric pain (principal); I10 Essential (primary) hypertension; R11.0 Nausea; R14.0 Abdominal distension (gaseous); I25.2 Old myocardial infarction; E03.9 Hypothyroidism, unspecified; Z79.82 Long term (current) use of aspirin; Z79.890 Hormone replacement therapy; Z79.899 Other long term (current) drug therapy
CPT/HCPCS: 74022; 80053; 81001; 83605; 83690; 84484; 85025; 93005; 96361; 96372; 96374; 99284; J7030; A4216

== ENCOUNTER 2023-01-10 00:25 | Emergency (ER) | payer MEDICARE, SELFPAY ==
[2023-01-10 00:27] VITALS: BP 220/83; PULSE 60; RESP 17; TEMP 36.4; O2SAT 98; BMI 31.3
--- NOTE | 2023-01-10 00:37 | EKG12_ITS ---
Test Reason : HTN Blood Pressure : / mmHG Vent. Rate : 052 BPM Atrial Rate : 052 BPM P-R Int : 316 ms QRS Dur : 100 ms QT Int : 442 ms P-R-T Axes : 050 -55 006 degrees QTc Int : 411 ms Sinus bradycardia with 1st degree A-V block Left anterior fascicular block Minimal voltage criteria for LVH, may be normal variant ( R in aVL ) Abnormal ECG Confirmed by PRINCE MACHADO, RILEY ([id number]), story editor JANIE DAMON ([id number]) on 01/14/2023 12:54:43 PM Referred By: Confirmed By:GEORGE MORRISON MD
--- NOTE | 2023-01-10 00:37 | RAD_ITS ---
STUDY: X-RAY CHEST REASON FOR EXAM: Male, 82 years old. Chest pain TECHNIQUE: PA and lateral views of the chest. COMPARISON: October 08, 2022 chest x-ray FINDINGS: The lungs are clear and expanded. There is no demonstrated pleural abnormality. Normal size heart. Normal mediastinum and dane. Normal visualized pulmonary arteries. Normal visualized aortic arch and descending thoracic aorta. There are diffuse degenerative changes of the visualized thoracic spine. There is degenerative osteoarthritis of the bilateral shoulders. There is no demonstrated abnormality of the visualized soft tissue structures of the upper abdomen. RAD/Chest PA and Lateral IMPRESSION: No demonstrated acute cardiopulmonary process. Electronically Signed: Saima Salomon MD at 1:09 EDT ,
--- NOTE | 2023-01-10 00:37 | EX.ED.DYSGE1 ---
HPI History of Present Illness Chief Complaint: General Illness Informant: patient and spouse/S.O. Narrative Narrative: Patient states he woke up in the last hour or 2 with a left-sided chest discomfort that was relatively mild but new. No other symptoms, no dyspnea no radiation. No headache. No dizziness. No focal neurologic symptoms. No recent fall or injury, he felt fine the rest of the day before going to bed. He does not check his blood pressure often but he did so tonight, and it was 223, and so for that reason he came to the emergency department. He states that the discomfort is gone right now and he has no other symptoms, he does not recall or know how long it lasted. He states he thinks it went away gradually. Relatively poor historian, does not know his medical history, directs me to the EMR. He states he has had no recent medication changes in the last week or so, and has not missed any doses of his medication including antihypertensives. [facility] Medical History LI (acute kidney injury) (08/13/19) COVID-19 (08/13/19) Elevated troponin I level Essential (primary) hypertension History of non-ST elevation myocardial infarction (NSTEMI) (08/13/19) Hypothyroidism Myeloproliferative neoplasm BARTOLO (obstructive sleep apnea) Renal calculi SARS-associated coronavirus infection (08/13/19) Seizures Thrombocythemia, essential Home Medications hydroxyurea 500 mg capsule 1,000 mg PO DAILY Check with primary doctor 08/12/19 [History Last Taken 08/12/19] aspirin 81 mg chewable tablet 81 mg PO DAILY@1000 09/01/19 [Rx Last Taken Unknown] ergocalciferol (vitamin D2) 1,250 mcg (50,000 unit) capsule 50,000 unit PO QWEEK 04/13/20 [History Last Taken Unknown] lisinopril 20 mg-hydrochlorothiazide 25 mg tablet 1 tab PO DAILY #90 tabs 04/13/20 [Rx Last Taken Unknown] thiamine HCl (vitamin B1) 250 mg tablet (Vitamin B-1) 500 mg PO DAILY 04/13/20 [History Last Taken Unknown] tamsulosin 0.4 mg capsule 0.4 mg PO DAILY 10/11/20 [History Last Taken Unknown] memantine 5 mg tablet 5 mg PO DAILY 10/09/21 [History Last Taken Unknown] phenytoin sodium extended 30 mg capsule (Dilantin) 60 mg PO DAILY 10/09/21 [History Last Taken Unknown] dicyclomine 10 mg capsule 10 mg PO TIDAC #20 CAPSULES 10/08/22 [Rx Last Taken Unknown] ondansetron 4 mg disintegrating tablet 4 mg PO Q8H PRN PRN Nausea #10 tabs 10/08/22 [Rx Last Taken Unknown] levothyroxine 150 mcg capsule 150 mcg PO DAILY 10/15/22 [History Last Taken Unknown] phenytoin sodium extended 100 mg capsule 200 mg PO DAILY seizures 10/15/22 [History Last Taken Unknown] Allergy/AdvReac Type Severity Reaction Status Date / Time No Known Allergies Allergy Verified 01/10/23 00:26 Family History Brother Heart disease, Onset Age: 69 AVR Surgical History Status post insertion of dialysis catheter (08/19/19) Social History Smoking Status: Never smoker ROS ROS ED Constitutional Constitutional ED: Denies chills or fever(s) Eyes Eyes: Denies change in vision or diplopia ENT ENT ED: Denies rhinorrhea or sore throat Cardiovascular Cardiovascular: Reports chest pain; Denies palpitations Respiratory/Chest Respiratory/Chest: Denies cough or dyspnea Gastrointestinal Gastrointestinal: Denies abdominal pain, diarrhea, nausea or vomiting Genitourinary Genitourinary ED: Denies dysuria or hematuria Musculoskeletal Musculoskeletal: Denies back pain or neck pain Integumentary Denies abscess or rash Neurologic Neurologic: Denies headache(s), paresthesias or weakness Psychiatric Psychiatric: Denies anxiety or suicidal thoughts EXAM Physical Exam Const Vital Signs: 01/10/23 00:27 01/10/23 00:29 01/10/23 00:40 Temperature 97.6 F L Temperature Source Temporal Pulse Rate 60 Respiratory Rate 17 Respiratory Effort Normal Non-Labored Respiratory Pattern Normal Blood Pressure 220/83 H Blood Pressure Mean 128 Pulse Ox 98 98 Oxygen Delivery Method Room Air Room Air 01/10/23 01:19 01/10/23 01:47 Temperature Temperature Source Pulse Rate 49 L 44 L Respiratory Rate 18 16 Respiratory Effort Respiratory Pattern Blood Pressure 167/63 H 153/68 H Blood Pressure Mean 97 96 Pulse Ox 97 98 Oxygen Delivery Method Room Air Room Air Positive well nourished and well developed General Appearance ED: well developed and NAD HEENT Reports moist mucous membranes normocephalic and atraumatic Eyes PERRL and EOMs intact bilaterally Neck full ROM and supple Chest Wall inspection of chest normal and palpation of chest normal Resp normal respiratory effort and clear to auscultation bilaterally Cardio regular rate, regular rhythm and no murmurs GI non-tender and non-distended Auscultation: normoactive bowel sounds Palpation: soft Back/Spine no CVA tenderness General Back: other FROM Extremity normal to inspection General Extremety ED: Negative for edema, pulses abnormal or tenderness General Extremity: Negative for edema or pulses abnormal Neuro oriented x3, CN's II-XII intact bilaterally and no sensory deficits noted Sensorium / Orientation: awake and alert Motor Exam: strength 5/5 throughout Skin no rashes or lesions noted and no wounds MDM MDM MDM Narrative Medical decision making narrative: Patient remained asymptomatic, and with observation prior to treating his blood pressure, it did come down, 167/63 on reevaluation, and when I reevaluated the patient he states he feels normal and not like I did at all earlier. His initial troponin came back at 15 well within normal limits, we observed him for a while in order to get a 2-hour repeat for a delta troponin, continuing to monitor his blood pressure. Second troponin came back at 20, which is still within normal limits, and the delta is less than 20 but it is 25% increase, and his heart score is 3. Given this I discussed with cardiology, as well as the fact that his blood pressure has remained stable/low, now 153/68, he is comfortable with him following up as an outpatient. Patient already established with cardiology here, given appropriate discharge instructions and advised to occasionally check his blood pressure or return to the ER if he has recurrent chest pain. Lab Data Attestation: I reviewed the patient's lab results. Labs: Laboratory Results - last 24 hr 01/10/23 01/10/23 00:33 02:50 WBC 5.9 RBC 3.73 L Hgb 14.5 Hct 43.5 MCV 116.6 H MCH 38.9 H MCHC 33.3 RDW Std Deviation 59.2 H RDW Coeff of Nacho 13.5 Plt Count 616 H MPV 8.6 Immature Gran % (Auto) 1.000 H Neut % (Auto) 72.3 H Lymph % (Auto) 16.5 L [place] % (Auto) 7.5 Eos % (Auto) 1.5 Baso % (Auto) 1.2 H Absolute Neuts (auto) 4.2 Absolute Lymphs (auto) 0.97 Nucleated RBC % 0 Sodium 141 Potassium 4.7 Chloride 109 H Carbon Dioxide 29.0 Anion Gap 3 L BUN 32 H Creatinine 1.20 Estim Creat Clear Calc 49.85 Est GFR (MDRD) Af Amer 75 Est GFR (MDRD) Non-Af 62 BUN/Creatinine Ratio 26.7 H Glucose 113 H Calcium 8.7 Troponin I High Sens 15 20 Radiography Diagnostic Testing: Clinical Impression(s) from Imaging Studies Chest X-Ray 01/10/23 00:37 IMPRESSION: No demonstrated acute cardiopulmonary process. Electronically Signed: Saima Salomon MD at 1:09 EDT , Rhythm Strip Rhythm Strip: Sinus Rhythm Rate: 55 Ectopy: None EKG Initial EKG: Attestation: I personally reviewed and interpreted this EKG as follows: Interpretation: Sinus Rhythm, No Acute Injury Pattern, LAFB and AV Block (1st deg) Prior EKG tracings: available for review (09/2022) Prior: Unchanged Management Discussion w/another healthcare provider: Asset Management Analyst (cardiology Dr. Davila) Discharge Plan Triage Chief Complaint: General Illness ED Provider: Alex Mcdonald Dx/Rx/DC Orders Clinical Impression: Chest pain, unspecified, Episode of hypertension Instructions: Hypertension Dc Prescriptions: No Action thiamine HCl (vitamin B1) [Vitamin B-1] 250 mg tablet 500 mg PO DAILY ergocalciferol (vitamin D2) 1,250 mcg (50,000 unit) capsule 50,000 unit PO QWEEK lisinopril-hydrochlorothiazide 20-25 mg tablet 1 tab PO DAILY Qty: 90 4RF tamsulosin 0.4 mg capsule 0.4 mg PO DAILY memantine 5 mg tablet 5 mg PO DAILY Patient Comments: TAKE 1 TABLET BY MOUTH ONCE DAILY Dilantin 30 mg capsule 60 mg PO DAILY Patient Comments: TAKE 2 CAPSULES BY MOUTH ONCE DAILY levothyroxine 150 mcg capsule 150 mcg PO DAILY phenytoin sodium extended 100 mg capsule 200 mg PO DAILY hydroxyurea 500 MG capsule 1,000 mg PO DAILY aspirin 81 MG tablet,chewable 81 mg PO DAILY@1000 0RF ondansetron [ondansetron] 4 mg tablet,disintegrating 4 mg PO Q8H PRN PRN (Reason: Nausea) Qty: 10 0RF dicyclomine 10 mg capsule 10 mg PO TIDAC Qty: 20 0RF Primary Care Provider: Nimesh Daigle Referrals: Jose Nova MD [Med Staff - Active Staff] - (call for appt) Nimesh Daigle MD [Primary Care Provider] - Disposition Disposition: Home, Self Care
[2023-01-10 00:40] VITALS: O2SAT 98
[2023-01-10 00:47] LABS: Absolute Lymphocyte Count 0.97 X10^3/uL (0.83-4.51); Absolute Neutrophil Count 4.2 X10^3/uL (2.0-7.7); Basophil# 0.07 X10^3/uL; Basophil% 1.2 % (0-1); Eosinophil# 0.09 X10^3/uL; Eosinophils% 1.5 % (0-5); Hematocrit 43.5 % (40-54); Hemoglobin 14.5 g/dL (13.0-16.5); Lymphocyte # 0.97 X10^3/ul (0.83-4.51); Lymphocyte % 16.5 % (19-41); Mean Corp Hgb Conc 33.3 g/dL (32-36); Mean Corpuscular Hgb 38.9 pg (27.0-32.0); Mean Corpuscular Volume 116.6 fL (80-94); Mean Platelet Vol. 8.6 fl (6.2-12.0); Monocyte# 0.44 X10^3/uL; Monocyte% 7.5 % (0-10); NRBC Flagged by Analyzer 0 % (0-5); Neutrophil # 4.24 X10^3/uL (2.7-7.7); Neutrophil % 72.3 % (47-70); Platelet Count 616 K/mm3 (150-450); RBC Distribution Width CV 13.5 % (11.6-14.6); RBC Distribution Width SD 59.2 fl (35.1-43.9); Red Blood Count 3.73 M/mm3 (4.6-6.2); White Blood Count 5.9 K/mm3 (4.4-11.0)
[2023-01-10 01:05] LABS: Anion Gap 3 (5-15); BUN 32 mg/dL (7-18); BUN/Creat Ratio 26.7 RATIO (10-20); Calcium,Total 8.7 mg/dL (8.5-10.1); Chloride 109 mmol/L (98-107); EST Glomerular Filtration Rate 62 mL/min (>60); Est Glom Filt Rate - Afr Amer 75 mL/min (>60); Estimated Creatinine Clearance 49.85 ml/min; Glucose 113 mg/dL (74-106); Potassium 4.7 mmol/L (3.5-5.1); Sodium Level 141 mmol/L (136-145); Troponin-I HS (w/2H Reflex) 15 pg/mL (3.0-78.0)
[2023-01-10 01:19] VITALS: BP 167/63; PULSE 49; RESP 18; O2SAT 97
[2023-01-10 01:47] VITALS: BP 153/68; PULSE 44; RESP 16; O2SAT 98
[2023-01-10 02:42] LABS: Reflex Troponin-HS? (from REC) Y
[2023-01-10 03:13] LABS: Troponin-I HS 20 pg/mL (3.0-78.0)
[2023-01-10 03:40] VITALS: BP 182/80; PULSE 50; RESP 18
[2023-01-10 03:41] VITALS: BP 142/55
== END 2023-01-10 03:41 | disposition home or self-care (01) ==
PROVIDERS: Emergency Provider Emergency Medicine; PCP Family Medicine; Visit Provider Emergency Medicine
DX: R07.9 Chest pain, unspecified (principal); I10 Essential (primary) hypertension; G47.33 Obstructive sleep apnea (adult) (pediatric); I25.2 Old myocardial infarction; Z79.82 Long term (current) use of aspirin; Z79.890 Hormone replacement therapy; Z79.899 Other long term (current) drug therapy
CPT/HCPCS: 71046; 80048; 84484; 85025; 93005; 99284; A4216

== ENCOUNTER → 2023-03-31 | Outpatient (CLI) | payer MEDICARE, SELFPAY ==
--- OUTSIDE RECORDS SUMMARY | 2023-03-31 15:55 | XMS RPT_ITS | CCD ---
Author Name Unknown Address [address] [place] [address] Organization [facility] Care Team Providers Care Assistant To The Vice President Name Role Phone Analisa Daigle MD Primary Care Provider Sarah Ferris MD Unavailable Yoli DUNBAR MD, Frank A Primary Care Provider Candi Analisa Allen MD Primary Care Provider Sarah Ferris MD Unavailable Sarah Ferris MD Unavailable Analisa Daigle MD Primary Care Provider Analisa Daigle MD Primary Care Provider Sarah Ferris MD Unavailable SHAWN CROWDER Attending Unavailable ANALISA DAIGLE Primary Care Unavailable ANALISA DAIGLE Referring Unavailable SHAWN CROWDER Attending Unavailable AMARILIS PRETTY III Referring Unavailable ANALISA DAIGLE Primary Care Unavailable Sarah Ferris MD Unavailable Sarah Ferris MD Unavailable Sarah Ferris MD Unavailable ANALISA DAIGLE Primary Care Unavailable JANA SLATER Attending Unavailable ANALISA DAIGLE Primary Care Unavailable ANALISA DAIGLE Primary Care Unavailable ANALISA DAIGLE Primary Care Unavailable ANT HORTA JR Referring Unavailable ANALISA DAIGLE Primary Care Unavailable ANT HORTA JR Attending Unavailable ANALISA DAIGLE Attending Unavailable ANALISA DAIGLE Primary Care Unavailable WESTON ISBELL Attending Unavailab ANALISA Rudd Primary Care Unavailable ANALISA DAIGLE Primary Care Unavailable DALE GUALLPA Attending Unavailable DALE GUALLPA Referring Unavailable ANALISA DAIGLE Primary Care Unavailable ANALISA DAIGLE Primary Care Unavailable DALE GUALLPA Attending Unavailable CHRISTINE GRACE Referring Unavailable CHRISTINE GRACE Referring Unavailable ANALISA DAIGLE Primary Care Unavailable ANALISA DAIGLE Primary Care Unavailable CHRISTINE GRACE Attending Unavailable Medications Current Medications Medication Drug Class(es) Dates Sig (Normalized) Sig (Original) benzonatate 100 mg oral capsule (11 sources) Non-narcotic Antitussive Start: 07-22-2022 End: 08-01-2022 take 2 capsules by mouth three times daily as needed benzonatate (TESSALON PERLE) 100 mg capsule Indications: Viral URI with cough Take 2 capsules by mouth three times daily as needed for up to 10 days. 60 capsule 0 07/22/2022 08/01/2022 Active Completed/Discontinued Medications Medication Drug Class(es) Dates Sig (Normalized) Sig (Original) aspirin 81 mg delayed release oral tablet (20 sources) Platelet Aggregation Inhibitor, Nonsteroidal Anti-inflammatory Drug take 1 tablet by mouth once daily aspirin, enteric coated (ASPIRIN, ENTERIC COATED) 81 mg EC tablet Take 81 mg by mouth once daily. 0 Active Problems Active Problems Problem Classification Problem Date Documented Date Episodic/Chronic Anxiety disorders (20 sources) Chronic anxiety; Translations: [Anxiety disorder, unspecified] Onset: 06-12-2020 06-12-2020 Chronic Delirium, dementia, and amnestic and other cognitive disorders (2 sources) Dementia; Translations: [Unspecified dementia without behavioral disturbance] Onset: 05-31-2022 Chronic Disorders of lipid metabolism (20 sources) Hyperlipidemia; Translations: [Hyperlipidemia, unspecified] Onset: 06-13-2016 08-11-2017 Chronic Epilepsy; convulsions (20 sources) Seizure disorder; Translations: [Epilepsy, unspecified, not intractable, without status epilepticus] Onset: 02-08-2013 02-08-2013 Chronic Essential hypertension (20 sources) Essential hypertension; Translations: [Essential (primary) hypertension] Onset: 06-13-2016 06-13-2016 Chronic Genitourinary symptoms and ill-defined conditions (1 source) Urinary incontinence; Translations: [Unspecified urinary incontinence] Chronic Genitourinary symptoms and ill-defined conditions (6 sources) History of urinary tract infection; Translations: [Personal history of urinary (tract) infections] Onset: 04-05-2021 Episodic Headache; including migraine (20 sources) Migraine; Translations: [Migraine, unspecified, not intractable, without status migrainosus] Onset: 2010 2010 Chronic Hyperplasia of prostate (20 sources) Benign prostatic hypertrophy with outflow obstruction; Translations: [Benign prostatic hyperplasia with lower urinary tract symptoms] Onset: 04-07-2009 05-19-2015 Chronic Nutritional deficiencies (20 sources) Vitamin D deficiency; Translations: [Vitamin D deficiency, unspecified] Onset: 06-12-2020 06-12-2020 Chronic Osteoarthritis (20 sources) Bilateral arthritis of knees; Translations: [Bilateral primary osteoarthritis of knee] Onset: 04-06-2014 04-06-2014 Chronic Other and unspecified benign neoplasm (2 sources) History of polyp of colon; Translations: [Personal history of colonic polyps] 10-01-2022 Episodic Other circulatory disease (1 source) Elevated blood pressure; Translations: [Elevated blood-pressure reading, without diagnosis of hypertension] Episodic Other connective tissue disease (1 source) Pain in left foot; Translations: [Pain in left foot] Episodic Other lower respiratory disease (1 source) Cough; Translations: [Cough] Episodic Other nervous system disorders (3 sources) Impaired cognition; Translations: [Other symptoms and signs involving cognitive functions and awareness] Episodic Other nervous system disorders (1 source) H/O: ear disorder; Translations: [Personal history of other diseases of the nervous system and sense organs] 12-12-2022 Episodic Other upper respiratory infections (4 sources) Sore throat symptom; Translations: [Acute pharyngitis, unspecified] Episodic Residual codes; unclassified (20 sources) Daytime somnolence; Translations: [Other hypersomnia] Onset: 11-23-2019 11-23-2019 Chronic Residual codes; unclassified (20 sources) Obstructive sleep apnea syndrome; Translations: [Obstructive sleep apnea (adult) (pediatric)] Onset: 08-09-2020 08-09-2020 Chronic Residual codes; unclassified (1 source) Obstructive sleep apnea (adult) (pediatric); Translations: [BARTOLO on CPAP] Onset: 05-31-2022 Chronic Residual codes; unclassified (1 source) Dependence on other enabling machines and devices; Translations: [BARTOLO on CPAP] Onset: 05-31-2022 Chronic Thyroid disorders (20 sources) Hypothyroidism; Translations: [Hypothyroidism, unspecified] Onset: 12-11-2007 05-19-2015 Chronic Viral infection (1 source) COVID-19; Translations: [COVID-19] Onset: 08-10-2019 Past or Other Problems Problem Classification Problem Date Documented Da te Episodic/Chronic Calculus of urinary tract (20 sources) Kidney stone; Translations: [Calculus of kidney] Onset: 01-29-2016 11-23-2019 Episodic Conditions associated with dizziness or vertigo (20 sources) Dizziness; Translations: [Dizziness and giddiness] Onset: 04-06-2021 04-06-2021 Episodic Gastrointestinal hemorrhage (4 sources) Rectal hemorrhage; Translations: [Hemorrhage of anus and rectum] Onset: 11-19-2022 Episodic Hemorrhoids (3 sources) Thrombosed external hemorrhoids; Translations: [Perianal venous thrombosis] Onset: 11-19-2022 10-01-2022 Episodic Mycoses (20 sources) Onychomycosis due to dermatophyte ; Translations: [Tinea unguium] Onset: 06-12-2020 06-12-2020 Episodic Neoplasms of unspecified nature or uncertain behavior (20 sources) Thrombocytosis; Translations: [Thrombocytosis] Onset: 03-21-2016 03-21-2016 Episodic Other and unspecified benign neoplasm (1 source) Personal history of colonic polyps; Translations: [Personal history of colonic polyps] Onset: 11-19-2022 Episodic Other circulatory disease (1 source) Elevated blood-pressure reading, without diagnosis of hypertension; Translations: [Elevated blood pressure reading] Onset: 05-31-2022 Episodic Other lower respiratory disease (20 sources) Snoring; Translations: [Snoring] Onset: 11-23-2019 11-23-2019 Episodic Other lower respiratory disease (1 source) Snoring; Translations: [Loud snoring] Onset: 11-23-2019 Episodic Other male genital disorders (20 sources) Hemospermia; Translations: [Hematospermia] Onset: 04-01-2011 04-01-2011 Episodic Other nervous system disorders (1 source) Other symptoms and signs involving cognitive functions and awareness; Translations: [Cognitive impairment] Onset: 05-31-2022 Episodic Urinary tract infections (1 source) Urinary tract infection, site not specified; Translations: [Recurrent UTI] Onset: 04-05-2021 Episodic Viral infection (20 sources) Disease caused by 2019-nCoV; Translations: [COVID-19] Onset: 08-10-2019 08-10-2019 Episodic Results Test Name Value Interpretation Reference Range Facil ity Vital Signs Date Time Vital Sign Value Performing Clinician Faci rudi 03-08-2023 11:17-0500 Diastolic blood pressure 67 mm[Hg] Weston Isbell MD Work Phone: [facility] 03-08-2023 11:17-0500 Heart rate 49 /min Weston sIbell MD Work Phone: [facility] 03-08-2023 11:17-0500 Systolic blood pressure 146 mm[Hg] Weston Isbell MD Work Phone: [facility] 03-08-2023 11:03-0500 Body weight 100.34 kg Weston Isbell MD Work Phone: [facility] 03-08-2023 11:03-0500 Respiratory rate 16 /min Weston Isbell MD Work Phone: [facility] 03-08-2023 11:03-0500 SaO2% (BldA) [Mass fraction] 98 % Weston Isbell MD Work Phone: [facility] 12-12-2022 11:17-0400 Body temperature 97.39 [degF] Hawa Steele BINDER OPERATOR.CENTER DIRECTOR LEAD TEACHER Work Phone: [facility] 12-12-2022 11:17-0400 Body weight 98.52 kg Hawa Cedric BINDER OPERATOR.CENTER DIRECTOR LEAD TEACHER Work Phone: [facility] 12-12-2022 11:17-0400 Diastolic blood pressure 78 mm[Hg] Hawa Cedric BINDER OPERATOR.CENTER DIRECTOR LEAD TEACHER Work Phone: [facility] 12-12-2022 11:17-0400 Heart rate 54 /min Hawa Cedric BINDER OPERATOR.CENTER DIRECTOR LEAD TEACHER Work Phone: [facility] 12-12-2022 11:17-0400 Respiratory rate 18 /min Hawa Cedric BINDER OPERATOR.CENTER DIRECTOR LEAD TEACHER Work Phone: [facility] 12-12-2022 11:17-0400 SaO2% (BldA) [Mass fraction] 99 % Hawa Cedric BINDER OPERATOR.CENTER DIRECTOR LEAD TEACHER Work Phone: [facility] 12-12-2022 11:17-0400 Systolic blood pressure 157 mm[Hg] Hawa Cedric BINDER OPERATOR.CENTER DIRECTOR LEAD TEACHER Work Phone: [facility] 11-19-2022 14:01-0400 Diastolic blood pressure 81 mm[Hg] Dale Guallpa MD Work Phone: [facility] 11-19-2022 14:01-0400 Heart rate 50 /min Dale Guallpa MD Work Phone: [facility] 11-19-2022 14:01-0400 Respiratory rate 16 /min Dale Guallpa MD Work Phone: [facility] 11-19-2022 14:01-0400 SaO2% (BldA) [Mass fraction] 100 % Dale Guallpa MD Work Phone: [facility] 11-19-2022 14:01-0400 Systolic blood pressure 196 mm[Hg] Dale Guallpa MD Work Phone: [facility] 11-19-2022 11:09-0400 Body temperature 98.6 [degF] Dale Guallpa MD Work Phone: [facility] 10-01-2022 08:26-0400 Body height 177.8 cm Dale Guallpa MD Work Phone: [facility] 10-01-2022 08:26-0400 Body temperature 97.3 [degF] Dale Guallpa MD Work Phone: [facility] 10-01-2022 08:26-0400 Body weight 98.34 kg Dale Guallpa MD Work Phone: [facility] 10-01-2022 08:26-0400 Diastolic blood pressure 72 mm[Hg] Dale Guallpa MD Work Phone: [facility] 10-01-2022 08:26-0400 Heart rate 59 /min Dale Guallpa MD Work Phone: [facility] 10-01-2022 08:26-0400 SaO2% (BldA) [Mass fraction] 99 % Dale Guallpa MD Work Phone: [facility] 10-01-2022 08:26-0400 Systolic blood pressure 140 mm[Hg] Dale Guallpa MD Work Phone: [facility] 09-26-2022 10:53-0400 Body weight 98.43 kg Christine Espinalhof BINDER OPERATOR.CENTER DIRECTOR LEAD TEACHER Work Phone: [facility] 09-26-2022 10:53-0400 Diastolic blood pressure 70 mm[Hg] Christine Espinalhof BINDER OPERATOR.CENTER DIRECTOR LEAD TEACHER Work Phone: [facility] 09-26-2022 10:53-0400 Heart rate 51 /min Christine Espinalhof BINDER OPERATOR.CENTER DIRECTOR LEAD TEACHER Work Phone: [facility] 09-26-2022 10:53-0400 Respiratory rate 16 /min Christine Espinalhof BINDER OPERATOR.CENTER DIRECTOR LEAD TEACHER Work Phone: [facility] 09-26-2022 10:53-0400 SaO2% (BldA) [Mass fraction] 98 % Christinericardo Espinalhof BINDER OPERATOR.CENTER DIRECTOR LEAD TEACHER Work Phone: [facility] 09-26-2022 10:53-0400 Systolic blood pressure 136 mm[Hg] Christine Espinalhof BINDER OPERATOR.CENTER DIRECTOR LEAD TEACHER Work Phone: [facility] 07-22-2022 14:39-0400 Body temperature 99.61 [degF] Francesca Vasquez BINDER OPERATOR.CENTER DIRECTOR LEAD TEACHER Work Phone: [facility] 07-22-2022 14:39-0400 Body weight 100.25 kg Francesca Vasquez BINDER OPERATOR.CENTER DIRECTOR LEAD TEACHER Work Phone: [facility] 07-22-2022 14:39-0400 Diastolic blood pressure 68 mm[Hg] Francesca Praisler-Wood BINDER OPERATOR.CENTER DIRECTOR LEAD TEACHER Work Phone: [facility] 07-22-2022 14:39-0400 Heart rate 72 /min Francesca Praisler-Wood BINDER OPERATOR.CENTER DIRECTOR LEAD TEACHER Work Phone: [facility] 07-22-2022 14:39-0400 Respiratory rate 16 /min Francesca Praisler-Wood BINDER OPERATOR.CENTER DIRECTOR LEAD TEACHER Work Phone: [facility] 07-22-2022 14:39-0400 SaO2% (BldA) [Mass fraction] 97 % Francesca Praisler-Wood BINDER OPERATOR.CENTER DIRECTOR LEAD TEACHER Work Phone: [facility] 07-22-2022 14:39-0400 Systolic blood pressure 120 mm[Hg] Francesca Praisler-Wood BINDER OPERATOR.[facility] Work Phone: [facility] 05-31-2022 15:28-0500 Body temperature 97.59 [degF] Ant Horta Jr., MD Work Phone: [facility] 05-31-2022 15:28-0500 Body weight 100.25 kg Ant Horta Jr., MD Work Phone: [facility] 05-31-2022 15:28-0500 Diastolic blood pressure 76 mm[Hg] Ant Horta Jr., MD Work Phone: [facility] 05-31-2022 15:28-0500 Heart rate 55 /min Ant Horta Jr., MD Work Phone: [facility] 05-31-2022 15:28-0500 Respiratory rate 18 /min Ant Horta Jr., MD Work Phone: [facility] 05-31-2022 15:28-0500 SaO2% (BldA) [Mass fraction] 99 % Ant Horta Jr., MD Work Phone: [facility] 05-31-2022 15:28-0500 Systolic blood pressure 163 mm[Hg] Ant Horta Jr., MD Work Phone: [facility] 12-10-2021 15:23-0400 Body weight 95.25 kg Ant Horta Jr., MD Work Phone: [facility] 12-10-2021 15:23-0400 Diastolic blood pressure 69 mm[Hg] Ant Horta Jr., MD Work Phone: [facility] 12-10-2021 15:23-0400 Heart rate 50 /min Ant Horta Jr., MD Work Phone: [facility] 12-10-2021 15:23-0400 Respiratory rate 16 /min Ant Horta Jr., MD Work Phone: [facility] 12-10-2021 15:23-0400 SaO2% (BldA) [Mass fraction] 98 % Ant Horta Jr., MD Work Phone: [facility] 12-10-2021 15:23-0400 Systolic blood pressure 137 mm[Hg] Ant Horta Jr., MD Work Phone: [facility] 10-04-2021 15:06-0400 Body height 177.8 cm Shawn Crowder MD Work Phone: [facility] 10-04-2021 15:06-0400 Body weight 97.07 kg Shawn Crowder MD Work Phone: [facility] 10-04-2021 15:06-0400 Diastolic blood pressure 62 mm[Hg] Shawn Crowder MD Work Phone: [facility] 10-04-2021 15:06-0400 Systolic blood pressure 130 mm[Hg] Shawn Crowder MD Work Phone: [facility] 09-27-2021 14:26-0400 Body height 177.8 cm Analisa Daigle MD Work Phone: [facility] 09-27-2021 14:26-0400 Body weight 97.07 kg Analisa Daigle MD Work Phone: [facility] 09-27-2021 14:26-0400 Diastolic blood pressure 78 mm[Hg] Analisa Daigle MD Work Phone: [facility] 09-27-2021 14:26-0400 Heart rate 66 /min Analisa Daigle MD Work Phone: [facility] 09-27-2021 14:26-0400 Respiratory rate 16 /min Analisa Daigle MD Work Phone: [facility] 09-27-2021 14:26-0400 Systolic blood pressure 138 mm[Hg] Analisa Daigle MD Work Phone: [facility] 06-27-2021 10:26-0400 Body temperature 97.81 [degF] Carmina Athy PA-C Work Phone: [facility] 06-27-2021 10:26-0400 Body weight 99.52 kg Carmina Athy PA-C Work Phone: [facility] 06-27-2021 10:26-0400 Diastolic blood pressure 64 mm[Hg] Carmina Athy PA-C Work Phone: [facility] 06-27-2021 10:26-0400 Heart rate 55 /min Carmina Athy PA-C Work Phone: [facility] 06-27-2021 10:26-0400 Respiratory rate 20 /min Carmina Athy PA-C Work Phone: [facility] 06-27-2021 10:26-0400 SaO2% (BldA) [Mass fraction] 99 % Carmina Athy PA-C Work Phone: [facility] 06-27-2021 10:26-0400 Systolic blood pressure 128 mm[Hg] Carmina Athy PA-C Work Phone: [facility] Encounters Encounter Date Encounter Type Care Provider Facility Start: 03-21-2023 End: 03-21-2023 ambulatory ANALISA DAIGLE Facility:[facility] Start: 03-08-2023 End: 03-08-2023 ambulatory Mica Holbrook RN NURSE SURGERY ATTENDANT Procedures Date Procedure Procedure Detail Performing Clinician Start: 12-12-2022 STREP A MOLECULAR (POC) Carmina Mike Athy PA-C Work Phone: Start: 11-19-2022 Colonoscopy flx dx w /collj spec when pfrmd Dale Guallpa MD Work Phone: Start: 07-22-2022 COVID WITH FLUA+B, ROUTINE Francesca Vasquez APRN.CENTER DIRECTOR LEAD TEACHER Work Phone: Start: 07-22-2022 Urnls dip stick/tabl et rgnt auto w/o microscopy Francesca Vasquez BINDER OPERATOR.CENTER DIRECTOR LEAD TEACHER Work Phone: Start: 07-22-2022 STREP A MOLECULAR (POC) Francesca Vasquez BINDER OPERATOR.CENTER DIRECTOR LEAD TEACHER Work Phone: Start: 09-27-2021 Adult depression scr eening assessment Analisa Daigle MD Work Phone: Start: 12-16-2019 Adult depression scr eening assessment Ant Horta Jr., MD Work Phone: Plan of Treatment Date Care Activity Detail Author Start: 10-07-2032 Urine microalbumin profile DTaP,Tdap,Td Vaccine (2 - Td or Tdap) [facility] Start: 09-26-2025 DIABETES SCREEN DIABETES SCREEN [facility] Start: 09-26-2025 Diabetes Screening Diabetes Screening [facility] Start: 05-31-2025 DIABETES SCREEN DIABETES SCREEN [facility] Start: 09-21-2024 DIABETES SCREEN DIABETES SCREEN [facility] Start: 05-11-2024 DIABETES SCREEN DIABETES SCREEN [facility] Start: 11-22-2022 Covid-19 Vaccine ( season) Covid-19 Vaccine () [facility] Start: 11-22-2022 Influenza vaccination [facility] Start: 09-27-2022 Adult depression screening assessment DEPRESSION SCREENING [facility] Start: 09-27-2022 ANNUAL PCP TEAM CHRONIC DISEASE VISIT ANNUAL PCP TEAM CHRONIC DISEASE VISIT [facility] Start: 09-26-2022 End: 11-26-2022 Comprehensive metabolic 2000 panel - Serum or Plasma [facility] Work Phone: Immunizations Immunization Date Immunization Notes Care Provider Fa cility 03-03-2023 influenza, high dose seasonal, preservative-free Analisa Daigle MD Work Phone: [facility] 09-12-2022 zoster vaccine recombinant Christine Teddyteojosephine BINDER OPERATOR.CENTER DIRECTOR LEAD TEACHER Work Phone: [facility] 04-18-2022 zoster vaccine recombinant Analisa Daigle MD Work Phone: [facility] 01-07-2022 influenza, high dose seasonal, preservative-free Ant Horta Jr., MD Work Phone: [facility] 01-07-2022 influenza virus vacc ine, unspecified formulation Hawa Steele BINDER OPERATOR.CENTER DIRECTOR LEAD TEACHER Work Phone: [facility] 06-08-2020 COVID-19 vaccine, ag e 12+ yr (PFIZER-BIONTECH - PURPLE TOP) Ant Horta Jr., MD Work Phone: [facility] 05-18-2020 COVID-19 vaccine, ag e 12+ yr (PFIZER-BIONTECH - PURPLE TOP) Ant Horta Jr., MD Work Phone: [facility] 01-29-2020 influenza, injectabl e, quadrivalent, contains preservative Ant Horta Jr., MD Work Phone: [facility] 08-16-2015 pneumococcal conjuga te vaccine, 13 valent Ant Horta Jr., MD Work Phone: [facility] Work Phone: 04-14-2015 tetanus and diphther ia toxoids, adsorbed, preservative free, for adult use (5 Lf of tetanus toxoid and 2 Lf of diphtheria toxoid) Ant Horta Jr., MD Work Phone: [facility] 02-08-2013 pneumococcal polysaccharide vaccine, 23 valent Ant Horta Jr., MD Work Phone: [facility] 06-22-2008 tetanus and diphther ia toxoids, not adsorbed, for adult use Ant Horta Jr., MD Work Phone: [facility] Payers Date Payer Category Payer Medicare [employer] MEDICARE A ETNA MEDICARE PPO [id number] 2021-Present [phone] [address] [place] [address] PPO [id number] 2021 Medicare [employer] MEDICARE A ETNA MEDICARE PPO [id number] 2021-Present [phone] [address] [place] [address] PPO [id number] 2021 Medicare [id number] 2012 Medicare [employer] MEDICARE A ETNA MEDICARE PPO [id number] 2012-2021 [address] [place] [address] PPO [id number] 2012 Medicare [id number] Social History Date Type Detail Facility Start: 06-13-2016 End: 12-10-2021 Tobacco smoking status NHIS Ex-smoker [facility] End: 03-24-1972 History of tobacco use Current smoker [facility] End: 03-24-1972 History of tobacco use Pipe Smoker [facility] Start: 06-13-2016 End: 12-10-2021 Tobacco use and exposure Smokeless tobacco non-user [facility] Start: 05-11-2021 End: 03-08-2023 Alcohol intake Current non-drinker of alcohol (finding) [facility] Start: 06-12-2020 End: 07-23-2022 History SDOH Alcohol Frequency 1 [facility] Start: 06-12-2020 History SDOH Alcohol Std Drinks 98 [facility] Start: 06-12-2020 End: 07-23-2022 History SDOH Social Connections Phone 5 [facility] Start: 06-12-2020 End: 07-23-2022 History SDOH Social Connections Meetings 3 [facility] Start: 06-12-2020 End: 07-23-2022 History SDOH Stress 2 [facility] Start: 06-12-2020 Education 18 [facility] Start: 06-13-2016 End: 12-10-2021 Tobacco Comment Pt stated he only smoked for a short time [facility] Start: 1940 Sex Assigned At Not on file [facility] Start: 06-17-2021 End: 10-27-2021 Exposure to SARS-CoV-2 (event) Not sure [facility] Work Phone: Start: 07-23-2022 History SDOH Alcohol Std Drinks 0 [facility] Start: 07-23-2022 End: 10-01-2022 History of Social function [facility] Start: 07-23-2022 End: 10-01-2022 Social connection and isolation panel [facility] Do you belong to any clubs or organizations such as alevism groups, unions, fraternal or athletic groups, or school groups? Yes [facility] Are you now , , , , never or living with a partner? [facility] How often to you hav e a drink containing alcohol? Never [facility] How many standard dr inks containing alcohol do you have on a typical day? Patient does not drink [facility] Do you feel stress - tense, restless, nervous, or anxious, or unable to sleep at night because your mind is troubled all the time - these days [OSQ] Not at all [facility] (I/We) worried wheth er (my/our) food would run out before (I/we) got money to buy more. Never true [facility] In the past 12 month s, was there a time when you were not able to pay the mortgage or rent on time? No [facility] Start: 11-23-2019 Gender identity Identifies as male gender (finding) [facility] Clinical Notes 05-17-2016 to 03-21-2023 Weston Isbell MD - 03/08/2023 11:03 AM ESTTelephone Encounter - Mica Holbrook RN - 03/08/2023 8:21 AM ESTTelephone Encounter - Ignacia Donis Ma - 03/04/2023 4:13 PM EST Note Date & Type Note Facility 03-21-2023 Note HNO ID: [id number] Author: Analisa Daigle MD Service: ? Author Type: Physician Type: Progress Notes Filed: 03/21/2023 10:32 AM Note Text: Chief Complaint Patient presents with: Follow Up: 2 week f/u BP HPI Merrick Muñoz is a 82 year old male who presents here today for 2 week follow up. He has an advanced directive. Declined covid vaccine. Pt saw Dr. Isbell on 03/08/23 for elevated Blood pressure that started about a month ago with recent ER visit at end of Jan. Lisinopril/HCTZ was increased to 40/25 daily. He has been checking his BP readings at home with BP running 180/80 to 124/60. He has been avoiding caffeine. Admits to eating fast food once a week. No vision changes, TELLO, Chest pains, SOB, edema of LE. Past medical history, appointments, medications, allergies reviewed. 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 COLONOSCOPY FLX DX W/COLLJ SPEC WHEN PFRMD N/A 05/17/2016 CYSTOSCOPY N/A 11/02/2020 RPR 1ST INGUN HRNA AGE 5 YRS/> REDUCIBLE Hernia repair, inguinal SKIN BIOPSY HX TONSILLECTOMY HX Family History FAMILY HISTORY Problem Relation Age of Onset GI Mother Hypertension Mother other (migraine) Mother Alzheimer's Disease Father Cancer Father Kidney Disease Sister Arthritis Brother Cancer Brother Patient Allergies ALLERGIES No Known Allergies Current Medications Current Outpatient Medications on File Prior to Visit Medication Sig lisinopril-hydroCHLOROthiazide (ZESTORETIC) 20-12.5 mg per tablet Take 2 tablets by mouth once daily. memantine (NAMENDA) 5 mg tablet Take 1 tablet by mouth once daily. tamsulosin (FLOMAX) 0.4 mg Take 1 capsule by mouth at bedtime as needed. doxycycline monohydrate (MONODOX) 100 mg capsule Take 100 mg by mouth twice daily. Take with food hydroxyurea (HYDREA) 500 mg capsule Take 2 capsules by mouth once daily. phenytoin ER (DILANTIN) 100 mg ER capsule Take 2 capsules by mouth once daily. phenytoin ER (DILANTIN) 30 mg ER capsule Take 2 capsules by mouth once daily. levothyroxine (SYNTHROID) 137 mcg tablet Take 1 tablet by mouth once daily. Take on empty stomach. For thyroid. ergocalciferol 50,000 unit capsule (VITAMIN D2, DRISDOL) Take 1 capsule by mouth one time a week. CPAP 1 Units as directed. Please provide AutoCPAP 7-10 cm H2O, lifetime supplies - including mask (nasal pillow masks or patient preference), heated humidity, heated tubing, filters. Please provide 30 day download to [phone]. [phone] Diagnosis: G47.33 CPAP Auto titrating PAP device with humidification set at a range of 7-12 cmH2O. PAP download in 4 weeks. A medium ResMed AirFit N20 nasal mask. Life time supplies. cyanocobalamin (VITAMIN B-12) 500 mcg tablet Take 1 tablet by mouth once daily. aspirin, enteric coated (ASPIRIN, ENTERIC COATED) 81 mg EC tablet Take 81 mg by mouth once daily. No current facility-administered medications on file prior to visit. Social History Social History Tobacco Use Smoking status: Former Types: Pipe Quit date: 03/24/1972 Years since quittin.0 Smokeless tobacco: Never Tobacco comments: Pt stated he only smoked for a short time Vaping Use Vaping Use: Never used Substance Use Topics Alcohol use: No Drug use: No EXAM: BP 160/80 Pulse 78 Resp 16 Wt 99.6 kg (219 lb 9.6 oz) BMI 31.51 kg/m? General Appearance: Well appearing, alert, in no acute distress, well-hydrated, well nourished.. Lungs: Lungs clear to auscultation. No wheezing, rhonchi, rales.. Heart: RRR without murmur, gallop, or rubs. No ectopy. Health Maintenance List RSV Vaccine(1 - 1-dose 60+ series) Never done Advance Directive Discussion Never done Depression Assessment Never done Covid-19 Vaccine( season) due on 11/22/2022 Diabetes Screening due on 09/26/2025 DTaP,Tdap,Td Vaccine(2 - Td or Tdap) due on 10/07/2032 Influenza Vaccine Completed Shingrix Vaccine Completed Pneumococcal Vaccine: 65+ Completed Colorectal Cancer Screening Discontinued Data reviewed None ASSESSMENT/PLAN: 1. Essential hypertension - ICD9: 401.9, ICD10: I10 - Uncontrolled - Continue current medications - Add amlodipine 5 mg daily - Recommend home blood pressure monitoring, to bring results to next visit Follow up in 1 month I agree with the Chief Complaint, ROS, a (more content not included)... [facility] 03-08-2023 Note HNO ID: [id number] Author: Weston Isbell MD Service: ? Author Type: Physician Type: Progress Notes Filed: 03/08/2023 12:08 PM Note Text: Chief Complaint Patient presents with: High blood pressure HPI Merrick Muñoz is a 82 year old male who presents here today for Above Complaints.. Accompanied today by . Patient complaining of high blood pressure for about a month now with recent ER visit around [facility]. Typical readings at home have been in the 170s/60-70's in the last week. Has been taking his lisinopril/HCTZ daily as prescribed without side effects. Avoiding caffeine, but does admit to eating fast food about once per week. Denies vision changes, headache, chest pain, SOB, LE edema. Past medical history, appointments, medications, allergies reviewed. 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 COLONOSCOPY FLX DX W/COLLJ SPEC WHEN PFRMD N/A 05/17/2016 CYSTOSCOPY N/A 11/02/2020 RPR 1ST INGUN HRNA AGE 6 YRS/> REDUCIBLE Hernia repair, inguinal SKIN BIOPSY HX TONSILLECTOMY HX Family History FAMILY HISTORY Problem Relation Age of Onset GI Mother Hypertension Mother other (migraine) Mother Alzheimer's Disease Father Cancer Father Kidney Disease Sister Arthritis Brother Cancer Brother Patient Allergies ALLERGIES No Known Allergies Current Medications Current Outpatient Medications on File Prior to Visit Medication Sig memantine (NAMENDA) 5 mg tablet Take 1 tablet by mouth once daily. tamsulosin (FLOMAX) 0.4 mg Take 1 capsule by mouth at bedtime as needed. lisinopril-hydroCHLOROthiazide (ZESTORETIC) 20-25 mg per tablet Take 1 tablet by mouth once daily. doxycycline monohydrate (MONODOX) 100 mg capsule Take 100 mg by mouth twice daily. Take with food hydroxyurea (HYDREA) 500 mg capsule Take 2 capsules by mouth once daily. phenytoin ER (DILANTIN) 100 mg ER capsule Take 2 capsules by mouth once daily. phenytoin ER (DILANTIN) 30 mg ER capsule Take 2 capsules by mouth once daily. levoFLOXacin (LEVAQUIN) 750 mg tablet DAILY (Patient not taking: Reported on 12/10/2021) lisinopril (ZESTRIL, PRINIVIL) 5 mg tablet DAILY cephALEXin (KEFLEX) 500 mg capsule TAKE 1 CAPSULE BY MOUTH THREE TIMES DAILY WITH FOOD FOR 5 DAYS (Patient not taking: Reported on 12/10/2021) levothyroxine (SYNTHROID) 137 mcg tablet Take 1 tablet by mouth once daily. Take on empty stomach. For thyroid. ergocalciferol 50,000 unit capsule (VITAMIN D2, DRISDOL) Take 1 capsule by mouth one time a week. CPAP 1 Units as directed. Please provide AutoCPAP 7-10 cm H2O, lifetime supplies - including mask (nasal pillow masks or patient preference), heated humidity, heated tubing, filters. Please provide 30 day download to [phone]. DME: [facility] [place] [phone] Diagnosis: G47.33 CPAP Auto titrating PAP device with humidification set at a range of 7-12 cmH2O. PAP download in 4 weeks. A medium ResMed AirFit N20 nasal mask. Life time supplies. cyanocobalamin (VITAMIN B-12) 500 mcg tablet Take 1 tablet by mouth once daily. aspirin, enteric coated (ASPIRIN, ENTERIC COATED) 81 mg EC tablet Take 81 mg by mouth once daily. No current facility-administered medications on file prior to visit. Social History Social History Tobacco Use Smoking status: Former Types: Pipe Quit date: 03/24/1972 Years since quittin.9 Smokeless tobacco: Never Tobacco comments: Pt stated he only smoked for a short time Vaping Use Vaping Use: Never used Substance Use Topics Alcohol use: No Drug use: No Review of Symptoms REVIEW OF SYSTEMS See HPI EXAM: BP 146/67 (BP Site: Left Arm, BP Position: Sitting, BP Cuff Size: Regular Adult) Pulse (!) 49 Resp 16 Wt 100.3 kg (221 lb 3.2 oz) SpO2 98% BMI 31.74 kg/m? General Appearance: Well appearing, alert, in no acute distress, well-hydrated, well nourished.. Skin: Skin color, texture, turgor normal, no suspicious rashes or lesions. Lungs: Lungs clear to auscultation. No wheezing, rhonchi, rales.. Heart: bradycardic without murmur, gallop, or rubs. No ectopy. Abdomen: Normal abdominal exam, Abdomen soft, non-tender. Bowel sounds normal. No masses, organomegaly. Extremities: No deformities, edema, skin discoloration, clubbing or cyanosis. Good capillary refill. . Health Maintenance List RSV Vaccine(1 - 1-dose 6 (more content not included)... [facility] 03-08-2023 History of Present illness Narrative Chief Complaint Patient presents with: High blood pressure HPI Merrick Muñoz is a 82 year old male who presents here today for Above Complaints.. Accompanied today by . Patient complaining of high blood pressure for about a month now with recent ER visit around [facility]. Typical readings at home have been in the 170s/60-70's in the last week. Has been taking his lisinopril/HCTZ daily as prescribed without side effects. Avoiding caffeine, but does admit to eating fast food about once per week. Denies vision changes, headache, chest pain, SOB, LE edema. Past medical history, appointments, medications, allergies reviewed. 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 COLONOSCOPY FLX DX W/COLLJ SPEC WHEN PFRMD N/A 05/17/2016 CYSTOSCOPY N/A 11/02/2020 RPR 1ST INGUN HRNA AGE 6 YRS/> REDUCIBLE Hernia repair, inguinal SKIN BIOPSY HX TONSILLECTOMY HX Family History FAMILY HISTORY Problem Relation Age of Onset GI Mother Hypertension Mother other (migraine) Mother Alzheimer's Disease Father Cancer Father Kidney Disease Sister Arthritis Brother Cancer Brother Patient Allergies ALLERGIES No Known Allergies Current Medications Current Outpatient Medications on File Prior to Visit Medication Sig memantine (NAMENDA) 5 mg tablet Take 1 tablet by mouth once daily. tamsulosin (FLOMAX) 0.4 mg Take 1 capsule by mouth at bedtime as needed. lisinopril-hydroCHLOROthiazide (ZESTORETIC) 20-25 mg per tablet Take 1 tablet by mouth once daily. doxycycline monohydrate (MONODOX) 100 mg capsule Take 100 mg by mouth twice daily. Take with food hydroxyurea (HYDREA) 500 mg capsule Take 2 capsules by mouth once daily. phenytoin ER (DILANTIN) 100 mg ER capsule Take 2 capsules by mouth once daily. phenytoin ER (DILANTIN) 30 mg ER capsule Take 2 capsules by mouth once daily. levoFLOXacin (LEVAQUIN) 750 mg tablet DAILY (Patient not taking: Reported on 12/10/2021) lisinopril (ZESTRIL, PRINIVIL) 5 mg tablet DAILY cephALEXin (KEFLEX) 500 mg capsule TAKE 1 CAPSULE BY MOUTH THREE TIMES DAILY WITH FOOD FOR 5 DAYS (Patient not taking: Reported on 12/10/2021) levothyroxine (SYNTHROID) 137 mcg tablet Take 1 tablet by mouth once daily. Take on empty stomach. For thyroid. ergocalciferol 50,000 unit capsule (VITAMIN D2, DRISDOL) Take 1 capsule by mouth one time a week. CPAP 1 Units as directed. Please provide AutoCPAP 7-10 cm H2O, lifetime supplies - including mask (nasal pillow masks or patient preference), heated humidity, heated tubing, filters. Please provide 30 day download to [phone]. DME: [facility] [place] [phone] Diagnosis: G47.33 CPAP Auto titrating PAP device with humidification set at a range of 7-12 cmH2O. PAP download in 4 weeks. A medium ResMed AirFit N20 nasal mask. Life time supplies. cyanocobalamin (VITAMIN B-12) 500 mcg tablet Take 1 tablet by mouth once daily. aspirin, enteric coated (ASPIRIN, ENTERIC COATED) 81 mg EC tablet Take 81 mg by mouth once daily. No current facility-administered medications on file prior to visit. Social History Social History Tobacco Use Smoking status: Former Types: Pipe Quit date: 03/24/1972 Years since quittin.9 Smokeless tobacco: Never Tobacco comments: Pt stated he only smoked for a short time Vaping Use Vaping Use: Never used Substance Use Topics Alcohol use: No Drug use: No Review of Symptoms REVIEW OF SYSTEMS See HPI EXAM: BP 146/67 (BP Site: Left Arm, BP Position: Sitting, BP Cuff Size: Regular Adult) Pulse (!) 49 Resp 16 Wt 100.3 kg (221 lb 3.2 oz) SpO2 98% BMI 31.74 kg/m General Appearance: Well appearing, alert, in no acute distress, well-hydrated, well nourished.. Skin: Skin color, texture, turgor normal, no suspicious rashes or lesions. Lungs: Lungs clear to auscultation. No wheezing, rhonchi, rales.. Heart: bradycardic without murmur, gallop, or rubs. No ectopy. Abdomen: Normal abdominal exam, Abdomen soft, non-tender. Bowel sounds normal. No masses, organomegaly. Extremities: No deformities, edema, skin discoloration, clubbing or cyanosis. Good capillary refill. . Health Maintenance List RSV Vaccine(1 - 1-dose 60+ series) Never done Advance Directive Discussion Never done Depression Assessment Never done Covid-19 Vaccine(2022- season) due on 11/22/2022 Diabetes Screening due on 09/26/2025 DTaP,Tdap,Td Vaccine(2 - Td or Tdap) due on 10/07/2032 Influenza Vaccine Completed Shingrix Vaccine Completed Pneumococcal Vaccine: 65+ Completed Colorectal Cancer Screening Discontinued ASSESSMENT/PLAN: 1. Essential hypertension - ICD9: 401.9, ICD10: I10 - Uncontrolled - Increase lisinopril - Recommend home blood pressure monitoring, to bring results to next visit - Encouraged sodium restriction, DASH or Mediterranean diet - Recommend regular aerobic exercise - Follow up in 2 weeks for hypertension visit Weston Ibsell MD documented in this encounter [facility] 03-08-2023 Miscellaneous Notes Reason for Call: High blood pressure Outcome: Recommended see PCP within 3 days. Patient acknowledged understanding and asked if he should continue taking extra BP medication, as recommended by ED. Conferenced to CONCHA Carbone at [facility]. Reason for Disposition Systolic BP >= 160 OR Diastolic >= 100 Answer Assessment - Initial Assessment Questions 1. BLOOD PRESSURE: This morning, 03/08/23 179/79 Pulse 60 half an hour later 170/75 Pulse 56 2. ONSET: Home monitor 3. HOW: Home BP monitor 4. HISTORY History of hypertension, for a few years 5. MEDICINES: Lisinopril, Hydrochlorothiazide 6. OTHER SYMPTOMS: Feeling in his chest, wouldn't call it pain 7. : N/A Patient states last night, 03/07/23, BP 10 PM 186/76 10:05 PM 185/78, he has noticed his diastolic also rising 03/06 Diastolic 67, 69, 72 03/07/23 76,78 Patient states he was told by ED and visiting nurse to take an extra BP medication pill. No medication changes within the past 30 days. Protocols used: Blood Pressure - [id number] documented in this encounter [facility] 03-04-2023 Miscellaneous Notes Call to Lori and notified her of message below from Provider. She spoke with pt who states he is feeling okay. Has a phone f/u with him tomorrow and will be back out to his home next Friday. Verbalized understanding. Ignacia Donis Ma I would not increase the dose at this point, may continue to monitor Analisa Daigle MD Joellen Teach WRONG ADDRESS CLERK calling back she said if calling her back, she is in until 5 pm today if after 5 pm please call the patient. Joellen Teach WRONG ADDRESS CLERK from [facility] home visit per patient insurance, she was at patient home today and he was having dizziness and light headed. His blood pressure is elevated 175/70 and 180/80. She had patient take a second dose of his Lisinopril-HCTZ 20/25 mg today. She plans to do follow up visit with the patient next Friday. She was asking if PCP wanted to increase the patient dose or not? Can notify WRONG ADDRESS CLERK and she will call the patient back. Please advise documented in this encounter [facility] 12-25-2022 Miscellaneous Notes TC to [facility] pharmacy and they state he does not have any refills of this medication. Kizzy Venegas LPN JACY 05/31/22 with WOCTAVIO NOV none scheduled Refill 05/31/22 with qty: 90 and 3 refills Kizzy Venegas LPN JACY Assessment/Plan ASSESSMENT/PLAN: 1. Seizure disorder (HCC) - ICD9: 345.90, ICD10: G40.909 (primary diagnosis) Stable per subjective history. Continues to tolerate dilantin, and given now symptoms as above when trying to lower dosing, would not change AED at this time. Will check CMP, CBC, and dilantin levels given nursing home use. However, goal of checking dilantin is to monitor for supratherapeutic levels. Will treat clinically picture and not just labs. 2. BARTOLO on CPAP - ICD9: 327.23, V46.8, ICD10: G47.33, Z99.89 Subjectively doing well. Objectively no data available for review. Encouraged compliance. Reminded pt to clean and replace equipment regularly. Advised pt not to drive or operate heavy machinery if sleepy. Requested that pt take SD card to [facility] [place] [place] for download. 3. Cognitive impairment - ICD9: 294.9, ICD10: R41.89 Stable MOCA. At this time will not increase Namenda dose with pt not endorsing a decline in function. 4. Elevated blood pressure reading - ICD9: 796.2, ICD10: R03.0 - Encouraged dietary sodium restriction/DASH diet - Recommend home blood pressure monitoring, to bring results in on next visit - Follow up with PCP. - Goal of BP <130/80 Ant Horta MD Pt requesting refill of memantine 5 mg. Was to follow up 11/2022 with Neuro JANET. No appt has been made as of this time. Requested Prescriptions Pending Prescriptions Disp Refills memantine (NAMENDA) 5 mg tablet 90 tablet Sig: Take 1 tablet by mouth once daily. JACY in Neuro: 05/31/2022 NOV in Neuro: not scheduled Allergies: No Known Allergies Last 1 Encounter BP Readings: Date: BP: 12/12/2022 157/78 DTaP,Tdap,Td Vaccine(1 - Tdap) due on 04/15/2015 Covid-19 Vaccine(3 - Pfizer series) due on 08/03/2020 Advance Directive Discussion Never done Depression Assessment Never done Influenza Vaccine(1) due on 11/22/2022 WBC (k/uL) Date Value 09/26/2022 6.66 Hemoglobin (g/dL) Date Value 09/26/2022 14.5 Platelet Count (k/uL) Date Value 09/26/2022 672 (H) Glucose (mg/dL) Date Value 09/26/2022 104 (H) BUN (mg/dL) Date Value 09/26/2022 29 (H) Creatinine (mg/dL) Date Value 09/26/2022 1.20 Sodium (mmol/L) Date Value 09/26/2022 137 Potassium (mmol/L) Date Value 09/26/2022 5.8 (H) Calcium, Total (mg/dL) Date Value 09/26/2022 9.3 Alkaline Phosphatase (U/L) Date Value 09/26/2022 64 Bilirubin, Total (mg/dL) Date Value 09/26/2022 0.3 AST (U/L) Date Value 09/26/2022 27 ALT (U/L) Date Value 09/26/2022 21 Cholesterol, Total (mg/dL) Date Value 09/21/2021 174 Triglyceride (mg/dL) Date Value 09/21/2021 58 TSH (mIU/L) Date Value 09/21/2021 4.250 (H) Current Outpatient Medications on File Prior to Visit Medication Sig tamsulosin (FLOMAX) 0.4 mg Take 1 capsule by mouth at bedtime as needed. lisinopril-hydroCHLOROthiazide (ZESTORETIC) 20-25 mg per tablet Take 1 tablet by mouth once daily. doxycycline monohydrate (MONODOX) 100 mg capsule Take 100 mg by mouth twice daily. Take with food hydroxyurea (HYDREA) 500 mg capsule Take 2 capsules by mouth once daily. phenytoin ER (DILANTIN) 100 mg ER capsule Take 2 capsules by mouth once daily. phenytoin ER (DILANTIN) 30 mg ER capsule Take 2 capsules by mouth once daily. levoFLOXacin (LEVAQUIN) 750 mg tablet DAILY (Patient not taking: Reported on 12/10/2021) lisinopril (ZESTRIL, PRINIVIL) 5 mg tablet DAILY cephALEXin (KEFLEX) 500 mg capsule TAKE 1 CAPSULE BY MOUTH THREE TIMES DAILY WITH FOOD FOR 5 DAYS (Patient not taking: Reported on 12/10/2021) levothyroxine (SYNTHROID) 137 mcg tablet Take 1 tablet by mouth once daily. Take on empty stomach. For thyroid. ergocalciferol 50,000 unit capsule (VITAMIN D2, DRISDOL) Take 1 capsule by mouth one time a week. CPAP 1 Units as directed. Please provide AutoCPAP 7-10 cm H2O, lifetime supplies - including mask (nasal pillow masks or patient preference), heated humidity, heated tubing, filters. Please provide 30 day download to [phone]. DME: [place] [phone] Diagnosis: G47.33 CPAP Auto titrating PAP device with humidification set at a range of 7-12 cmH2O. PAP download in 4 weeks. A medium ResMed AirFit N20 nasal mask. Life time supplies. cyanocobalamin (VITAMIN B-12) 500 mcg tablet Take 1 tablet by mouth once daily. aspirin, enteric coated (ASPIRIN, ENTERIC COATED) 81 mg EC tablet Take 81 mg by mouth once daily. No current facility-administered medications on file prior to visit. Gina Ferrer RN documented in this encounter [facility] 12-19-2022 Miscellaneous Notes Pt advised of dr crowder message to have pcp refill milvia OK to just have his PCP refill the prescription Shawn Crowder MD documented in this encounter [facility] 12-12-2022 Note HNO ID: [id number] Author: Hawa Steele APRN.CENTER DIRECTOR LEAD TEACHER Service: ? Author Type: Nurse Practitioner Type: Progress Notes Filed: 12/12/2022 11:55 AM Note Text: Subjective The history is provided by the patient. No certified court/medical interpreter was used. HPI Merrick Muñoz is a 82 year old male who presents today for CC of sore throat for 3 days. He is also having mild nasal drainage. He has used cepachol with short term relief. He denies any fever, chills, body aches, cough, nausea, vomiting or diarrhea. He denies any h/o acid reflux. BP 157/78 Pulse (!) 54 Temp 36.3 ?C (97.4 ?F) Resp 18 Wt 98.5 kg (217 lb 3.2 oz) SpO2 99% BMI 31.16 kg/m? 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 HENT: Positive for sore throat. Negative for congestion, ear pain and sinus pain. Respiratory: Negative for cough, sputum production, shortness of breath and wheezing. Cardiovascular: Negative for chest pain. Musculoskeletal: Negative for myalgias. Neurological: Negative for headaches. Objective Physical Exam Vitals and nursing note reviewed. Constitutional: Appearance: He is not toxic-appearing. HENT: Head: Normocephalic and atraumatic. Right Ear: Tympanic membrane, ear canal and external ear normal. Left Ear: Tympanic membrane, ear canal and external ear normal. Nose: Mucosal edema, congestion and rhinorrhea present. Right Sinus: No maxillary sinus tenderness or frontal sinus tenderness. Left Sinus: No maxillary sinus tenderness or frontal sinus tenderness. Mouth/Throat: Pharynx: Uvula midline. Posterior oropharyngeal erythema present. No oropharyngeal exudate. Tonsils: No tonsillar abscesses. Cardiovascular: Rate and Rhythm: Normal rate and regular rhythm. Heart sounds: Normal heart sounds. Pulmonary: Effort: Pulmonary effort is normal. Breath sounds: Normal breath sounds. No decreased breath sounds, wheezing, rhonchi or rales. Lymphadenopathy: Head: Right side of head: No submental, submandibular, tonsillar or preauricular adenopathy. Left side of head: No submental, submandibular, tonsillar or preauricular adenopathy. Cervical: No cervical adenopathy. Right cervical: No superficial cervical adenopathy. Left cervical: No superficial cervical adenopathy. Neurological: Mental Status: He is alert. ASSESSMENT/PLAN: 1. Sore throat - ICD9: 462, ICD10: J02.9 (primary diagnosis) - suspect viral, allergies, post nasal drainage - Group A strep molecular testing negative - STREP A MOLECULAR (POC) 2. Post-nasal drainage - ICD9: 473.9, ICD10: R09.82 - zyrtec - Comfort measures as discuss 3. H/O impacted cerumen - ICD9: V12.49, ICD10: Z86.69 Debrox, cerumenex Diagnosis and treatment plan were discussed and questions were answered to the patient's satisfaction. Pt acknowledged understanding of concepts and follow up plan. Specific signs and symptoms that would indicate the need for higher level of care were discussed in detail warranting prompt ER evaluation. Hawa Steele APRN.CNP [facility] 12-12-2022 Instructions Hawa Steele APRN.CNP - 12/12/2022 11:47 AM EDT Zyrtec 10 mg By mouth daily at bedtime Salt water gargles, chloraseptic spray or lozenges as needed for sore throat. Warm beverages, honey. Tylenol/ibuprofen as needed Use may use OTC Debrox or Cerumenex weekly Avoid inserting Q-tips into your ears. Follow up with your ENT as needed documented in this encounter [facility] 12-12-2022 History of Present illness Narrative Subjective The history is provided by the patient. No certified court/medical interpreter was used. HPI Merrick Muñoz is a 82 year old male who presents today for CC of sore throat for 3 days. He is also having mild nasal drainage. He has used cepachol with short term relief. He denies any fever, chills, body aches, cough, nausea, vomiting or diarrhea. He denies any h/o acid reflux. 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 HENT: Positive for sore throat. Negative for congestion, ear pain and sinus pain. Respiratory: Negative for cough, sputum production, shortness of breath and wheezing. Cardiovascular: Negative for chest pain. Musculoskeletal: Negative for myalgias. Neurological: Negative for headaches. Objective Physical Exam Vitals and nursing note reviewed. Constitutional: Appearance: He is not toxic-appearing. HENT: Head: Normocephalic and atraumatic. Right Ear: Tympanic membrane, ear canal and external ear normal. Left Ear: Tympanic membrane, ear canal and external ear normal. Nose: Mucosal edema, congestion and rhinorrhea present. Right Sinus: No maxillary sinus tenderness or frontal sinus tenderness. Left Sinus: No maxillary sinus tenderness or frontal sinus tenderness. Mouth/Throat: Pharynx: Uvula midline. Posterior oropharyngeal erythema present. No oropharyngeal exudate. Tonsils: No tonsillar abscesses. Cardiovascular: Rate and Rhythm: Normal rate and regular rhythm. Heart sounds: Normal heart sounds. Pulmonary: Effort: Pulmonary effort is normal. Breath sounds: Normal breath sounds. No decreased breath sounds, wheezing, rhonchi or rales. Lymphadenopathy: Head: Right side of head: No submental, submandibular, tonsillar or preauricular adenopathy. Left side of head: No submental, submandibular, tonsillar or preauricular adenopathy. Cervical: No cervical adenopathy. Right cervical: No superficial cervical adenopathy. Left cervical: No superficial cervical adenopathy. Neurological: Mental Status: He is alert. ASSESSMENT/PLAN: 1. Sore throat - ICD9: 462, ICD10: J02.9 (primary diagnosis) - suspect viral, allergies, post nasal drainage - Group A strep molecular testing negative - STREP A MOLECULAR (POC) 2. Post-nasal drainage - ICD9: 473.9, ICD10: R09.82 - zyrtec - Comfort measures as discuss 3. H/O impacted cerumen - ICD9: V12.49, ICD10: Z86.69 Debrox, cerumenex Diagnosis and treatment plan were discussed and questions were answered to the patient's satisfaction. Pt acknowledged understanding of concepts and follow up plan. Specific signs and symptoms that would indicate the need for higher level of care were discussed in detail warranting prompt ER evaluation. Hawa Steele APRN.CENTER DIRECTOR LEAD TEACHER documented in this encounter [facility] 11-19-2022 Note HNO ID: [id number] Author: Prerna Sher RN Service: ? Author Type: Registered Nurse Type: Nursing Progress Note Filed: 11/19/2022 2:14 PM Note Text: Dr. Guallpa notified of patient's elevated BP. States that it is OK for Merrick to go home. [facility] 11-19-[address] Guallpa notified of patient's elevated BP. States that it is OK for Merrick to go home. Patient arrived laying on his left side. Patient does not appear to be in any pain at this time and states he is not in any pain at this time. Abdomen appears to be nondistended and soft to palpation. Patient encouraged to belch and pass gas as needed. documented in this encounter [facility] 11-19-2022 History and physical note UPDATED PROCEDURAL SEDATION HISTORY AND PHYSICAL EXAMINATION SERVICE DATE: 11/19/2022 SERVICE TIME: 12:17 PM PHYSICAL EXAM MUST BE COMPLETED ON ADMISSION PROCEDURE: Procedure Indications: The History and Physical (completed in the past 30 days) has been reviewed and the patient has been examined. The contents accurately reflect the patient's condition with the following additions or revisions since the H&P was completed. ASA Class: ASA Class:: Patient with mild systemic disease Examination indicates no changes. AIRWAY: Airway Visualization of Uvula: Yes Mouth opening greater than 2 fingerbreadths: Yes Neck Full Range of Motion: Yes LUNGS: Lungs clear to auscultation CARDIAC: Regular rhythm,Regular rate Provisional Diagnosis/Treatment Plan: rectal bleeding - screening - colonoscopy SEDATION GOAL: Moderate This H&P can be found in the attached. SIGNATURE: Dale Guallpa MD PATIENT NAME: Merrick Muñoz DATE: November 19, 2022 TIME: 12:17 PM Source Note - Dale Guallpa MD - 11/19/2022 11:15 AM EDT Images from the original note were not included. HISTORY AND PHYSICAL Merrick Muñoz 1940 REFERRING PHYSICIAN: Christine Grace APRN.C* CHIEF COMPLAINT: Consult (Rectal bleeding. ) HPI: The patient is a 82 year old male referred for endoscopy. Merrick notes recent history of rectal bleeding. He was seen in primary care with rectal bleeding and referred for evaluation. On further discussion, the patient noted an episode of constipation and some straining he then noted some anal discomfort for 2 to 3 days and then noted bleeding on the toilet paper and in the bowl. He denied blood mixed within the stools he noted no other GI complaints other than the issues with constipation The patient notes no history of upper GI complaints. Merrick has undergone prior endoscopy. He underwent colonoscopy 5 years ago and had a serrated polyp removed. The patient is being seen by me today at the request of Christine Grace APRN.C* my opinion and advice regarding rectal bleeding and need for follow-up screening for personal history of colon polyps. 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, unspecified site Hypothyroidism Inguinal hernia without mention of obstruction or gangrene, unilateral or unspecified, (not specified as recurrent) Inguinal hernia Left leg DVT (HCC) 06/11/2012 Migraines Rosacea Unspecified sleep apnea Urinary calculus, unspecified Renal stones PAST SURGICAL HISTORY PAST SURGICAL HISTORY Procedure Laterality Date COLONOSCOPY FLX DX W/COLLJ SPEC WHEN PFRMD N/A 05/17/2016 CYSTOSCOPY N/A 11/02/2020 RPR 1ST INGUN HRNA AGE 5 YRS/> REDUCIBLE Hernia repair, inguinal CURRENT MEDICATIONS Current Outpatient Medications Medication Sig doxycycline monohydrate (MONODOX) 100 mg capsule Take 100 mg by mouth twice daily. Take with food hydroxyurea (HYDREA) 500 mg capsule Take 2 capsules by mouth once daily. phenytoin ER (DILANTIN) 100 mg ER capsule Take 2 capsules by mouth once daily. phenytoin ER (DILANTIN) 30 mg ER capsule Take 2 capsules by mouth once daily. memantine (NAMENDA) 5 mg tablet Take 1 tablet by mouth once daily. lisinopril-hydroCHLOROthiazide (PRINZIDE, ZESTORETIC) 20-25 mg per tablet Take 1 tablet by mouth once daily. tamsulosin (FLOMAX) 0.4 mg Take 1 capsule by mouth once daily at bedtime lisinopril (ZESTRIL, PRINIVIL) 5 mg tablet DAILY levothyroxine (SYNTHROID) 137 mcg tablet Take 1 tablet by mouth once daily. Take on empty stomach. For thyroid. ergocalciferol 50,000 unit capsule (VITAMIN D2, DRISDOL) Take 1 capsule by mouth one time a week. CPAP 1 Units as directed. Please provide AutoCPAP 7-10 cm H2O, lifetime supplies - including mask (nasal pillow masks or patient preference), heated humidity, heated tubing, filters. Please provide 30 day download to [phone]. [facility] – [place]: [facility] [place] [phone] Diagnosis: G47.33 CPAP Auto titrating PAP device with humidification set at a range of 7-12 cmH2O. PAP download in 4 weeks. A medium ResMed AirFit N20 nasal mask. Life time supplies. cyanocobalamin (VITAMIN B-12) 500 mcg tablet Take 1 tablet by mouth once daily. aspirin, enteric coated (ASPIRIN, ENTERIC COATED) 81 mg EC tablet Take 81 mg by mouth once daily. peg 3350-Electrolytes (GOLYTELY) 236-22.74-6.74 -5.86 gram suspension Take 4,000 mL by mouth one time only for 1 dose. Refer to printed prep instructions from your provider. levoFLOXacin (LEVAQUIN) 750 mg tablet DAILY (Patient not taking: Reported on 12/10/2021) cephALEXin (KEFLEX) 500 mg capsule TAKE 1 CAPSULE BY MOUTH THREE TIMES DAILY WITH FOOD FOR 5 DAYS (Patient not taking: Reported on 12/10/2021) No current facility-administered medications for this visit. ALLERGIES: Patient has no known allergies. PERSONAL HISTORY: SOCIAL HISTORY Social History Tobacco Use Smoking status: Former Types: Pipe Quit date: 03/24/1972 Years since quittin.5 Smokeless tobacco: Never Tobacco comments: Pt stated he only smoked for a short time Vaping Use Vaping Use: Never used Substance Use Topics Alcohol use: No Drug use: No FAMILY HISTORY: FAMILY HISTORY FAMILY HISTORY Problem Relation Age of Onset GI Mother Hypertension Mother other (migraine) Mother Alzheimer's Disease Father Cancer Father Kidney Disease Sister Arthritis Brother Cancer Brother REVIEW OF SYMPTOMS: PHYSICAL EXAMINATION: General: The patient is 82 year old male, well nourished, well hydrated in no acute distress. The patient is oriented to time, place, and person. VITALS: Blood pressure 140/72, pulse (!) 59, temperature 36.3 C (97.3 F), height 177.8 cm (5' 10 ), weight 98.3 kg (216 lb 12.8 oz), SpO2 99 %. Body mass index is 31.11 kg/m . HEENT: Normal cephalic, ataumatic, pupils are equally round, sclera are anicteric, mucous membranes are moist, oropharynx is clear. Neck has no masses, asymmetry or lymphadenopathy. Thyroid is unremarkable. Respiratory: Clear to auscultation and percussion. Normal respiratory excursion and pattern. Cardiac: Examination is regular rate and rhythm. Abdominal exam: Soft, nontender, with no palpable masses. No hepatosplenomegaly. No palpable hernias. Rectal exam: The patient has a right lateral thrombosed hemorrhoid which is drained spontaneously and is still a small amount of clot present. Digital rectal exam was deferred Extremities: no clubbing, cyanosis or edema. No adenopathy. Other: LABORATORY VALUES: As Noted RADIOLOGIC STUDIES: As Noted Assessment IMPRESSION: Thrombosed hemorrhoid spontaneously drained-resolving, need for screening colonoscopy PLAN: I plan to perform lower endoscopy. We discussed the risks and benefits of the planned endoscopy. I have informed the patient that complications can occur including failure to complete the endoscopy and perforation. The patient had the opportunity to ask questions concerning the planned endoscopy. My staff has also explained the procedure to the patient in understandable terms and has given the patient printed material concerning the procedure. The patient freely consents to surgery. I plan to use golytely bowel preparation for endoscopy Discussed with area that he had a thrombosed hemorrhoid which drained spontaneously and resolved. We discussed ways to minimize the risk of thrombosed hemorrhoid recurrence such as keeping her stools soft and distensible without straining on the toilet also avoiding heavy lifting which can also cause hemorrhoidal engorgement. If he notes recurring discomfort or swelling in the area that could be new thrombosed hemorrhoid he is instructed to return to me immediately. Diagnoses: (K64.5) External hemorrhoid, thrombosed (primary encounter diagnosis) (K62.5) Rectal bleeding (Z86.010) Personal history of colonic polyps My findings have been communicated to [facility] via shared medical record. This note will be forwarded to Analisa Daigle MD. Return to Clinic: The patient is instructed to follow-up with me after the testing has been completed. Dale Guallpa MD Images from the original note were not included. HISTORY AND PHYSICAL Merrick Muñoz 1940 REFERRING PHYSICIAN: Christine Grace APRN.C* CHIEF COMPLAINT: Consult (Rectal bleeding. ) HPI: The patient is a 82 year old male referred for endoscopy. Merrick notes recent history of rectal bleeding. He was seen in primary care with rectal bleeding and referred for evaluation. On further discussion, the patient noted an episode of constipation and some straining he then noted some anal discomfort for 2 to 3 days and then noted bleeding on the toilet paper and in the bowl. He denied blood mixed within the stools he noted no other GI complaints other than the issues with constipation The patient notes no history of upper GI complaints. Merrick has undergone prior endoscopy. He underwent colonoscopy 5 years ago and had a serrated polyp removed. The patient is being seen by me today at the request of Christine Grace APRN.C* my opinion and advice regarding rectal bleeding and need for follow-up screening for personal history of colon polyps. 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, unspecified site Hypothyroidism Inguinal hernia without mention of obstruction or gangrene, unilateral or unspecified, (not specified as recurrent) Inguinal hernia Left leg DVT (HCC) 06/11/2012 Migraines Rosacea Unspecified sleep apnea Urinary calculus, unspecified Renal stones PAST SURGICAL HISTORY PAST SURGICAL HISTORY Procedure Laterality Date COLONOSCOPY FLX DX W/COLLJ SPEC WHEN PFRMD N/A 05/17/2016 CYSTOSCOPY N/A 11/02/2020 RPR 1ST INGUN HRNA AGE 5 YRS/> REDUCIBLE Hernia repair, inguinal CURRENT MEDICATIONS Current Outpatient Medications Medication Sig doxycycline monohydrate (MONODOX) 100 mg capsule Take 100 mg by mouth twice daily. Take with food hydroxyurea (HYDREA) 500 mg capsule Take 2 capsules by mouth once daily. phenytoin ER (DILANTIN) 100 mg ER capsule Take 2 capsules by mouth once daily. phenytoin ER (DILANTIN) 30 mg ER capsule Take 2 capsules by mouth once daily. memantine (NAMENDA) 5 mg tablet Take 1 tablet by mouth once daily. lisinopril-hydroCHLOROthiazide (PRINZIDE, ZESTORETIC) 20-25 mg per tablet Take 1 tablet by mouth once daily. tamsulosin (FLOMAX) 0.4 mg Take 1 capsule by mouth once daily at bedtime lisinopril (ZESTRIL, PRINIVIL) 5 mg tablet DAILY levothyroxine (SYNTHROID) 137 mcg tablet Take 1 tablet by mouth once daily. Take on empty stomach. For thyroid. ergocalciferol 50,000 unit capsule (VITAMIN D2, DRISDOL) Take 1 capsule by mouth one time a week. CPAP 1 Units as directed. Please provide AutoCPAP 7-10 cm H2O, lifetime supplies - including mask (nasal pillow masks or patient preference), heated humidity, heated tubing, filters. Please provide 30 day download to [phone]. [phone] Diagnosis: G47.33 CPAP Auto titrating PAP device with humidification set at a range of 7-12 cmH2O. PAP download in 4 weeks. A medium ResMed AirFit N20 nasal mask. Life time supplies. cyanocobalamin (VITAMIN B-12) 500 mcg tablet Take 1 tablet by mouth once daily. aspirin, enteric coated (ASPIRIN, ENTERIC COATED) 81 mg EC tablet Take 81 mg by mouth once daily. peg 3350-Electrolytes (GOLYTELY) 236-22.74-6.74 -5.86 gram suspension Take 4,000 mL by mouth one time only for 1 dose. Refer to printed prep instructions from your provider. levoFLOXacin (LEVAQUIN) 750 mg tablet DAILY (Patient not taking: Reported on 12/10/2021) cephALEXin (KEFLEX) 500 mg capsule TAKE 1 CAPSULE BY MOUTH THREE TIMES DAILY WITH FOOD FOR 5 DAYS (Patient not taking: Reported on 12/10/2021) No current facility-administered medications for this visit. ALLERGIES: Patient has no known allergies. PERSONAL HISTORY: SOCIAL HISTORY Social History Tobacco Use Smoking status: Former Types: Pipe Quit date: 03/24/1972 Years since quittin.5 Smokeless tobacco: Never Tobacco comments: Pt stated he only smoked for a short time Vaping Use Vaping Use: Never used Substance Use Topics Alcohol use: No Drug use: No FAMILY HISTORY: FAMILY HISTORY FAMILY HISTORY Problem Relation Age of Onset GI Mother Hypertension Mother other (migraine) Mother Alzheimer's Disease Father Cancer Father Kidney Disease Sister Arthritis Brother Cancer Brother REVIEW OF SYMPTOMS: PHYSICAL EXAMINATION: General: The patient is 82 year old male, well nourished, well hydrated in no acute distress. The patient is oriented to time, place, and person. VITALS: Blood pressure 140/72, pulse (!) 59, temperature 36.3 C (97.3 F), height 177.8 cm (5' 10 ), weight 98.3 kg (216 lb 12.8 oz), SpO2 99 %. Body mass index is 31.11 kg/m . HEENT: Normal cephalic, ataumatic, pupils are equally round, sclera are anicteric, mucous membranes are moist, oropharynx is clear. Neck has no masses, asymmetry or lymphadenopathy. Thyroid is unremarkable. Respiratory: Clear to auscultation and percussion. Normal respiratory excursion and pattern. Cardiac: Examination is regular rate and rhythm. Abdominal exam: Soft, nontender, with no palpable masses. No hepatosplenomegaly. No palpable hernias. Rectal exam: The patient has a right lateral thrombosed hemorrhoid which is drained spontaneously and is still a small amount of clot present. Digital rectal exam was deferred Extremities: no clubbing, cyanosis or edema. No adenopathy. Other: LABORATORY VALUES: As Noted RADIOLOGIC STUDIES: As Noted Assessment IMPRESSION: Thrombosed hemorrhoid spontaneously drained-resolving, need for screening colonoscopy PLAN: I plan to perform lower endoscopy. We discussed the risks and benefits of the planned endoscopy. I have informed the patient that complications can occur including failure to complete the endoscopy and perforation. The patient had the opportunity to ask questions concerning the planned endoscopy. My staff has also explained the procedure to the patient in understandable terms and has given the patient printed material concerning the procedure. The patient freely consents to surgery. I plan to use golytely bowel preparation for endoscopy Discussed with area that he had a thrombosed hemorrhoid which drained spontaneously and resolved. We discussed ways to minimize the risk of thrombosed hemorrhoid recurrence such as keeping her stools soft and distensible without straining on the toilet also avoiding heavy lifting which can also cause hemorrhoidal engorgement. If he notes recurring discomfort or swelling in the area that could be new thrombosed hemorrhoid he is instructed to return to me immediately. Diagnoses: (K64.5) External hemorrhoid, thrombosed (primary encounter diagnosis) (K62.5) Rectal bleeding (Z86.010) Personal history of colonic polyps My findings have been communicated to [facility] via shared medical record. This note will be forwarded to Analisa Daigle MD. Return to Clinic: The patient is instructed to follow-up with me after the testing has been completed. Dale Guallpa MD documented in this encounter [facility] 11-15-2022 Miscellaneous Notes Pt called with questions on how to take prep. RN reviewed GoLytely instructions: stated to start prep between 1-6pm on Friday for a Friday scheduled procedure, pt may continue clear fluids with prep and avoid red or purple dyes. Pt reiterated directions, verbalized understanding. documented in this encounter [facility] 10-30-2022 Miscellaneous Notes The following approved medication requests have been transmitted electronically. Requested Prescriptions Pending Prescriptions Disp Refills lisinopril-hydroCHLOROthiazide (ZESTORETIC) 20-25 mg per tablet 90 tablet 3 Sig: Take 1 tablet by mouth once daily. Quinton Hubbard APRN.CNP Patient has been identified by name and date of : Yes Last office visit in this department: Visit date not found RX INSTRUCTIONS: Patient aware RX will be sent to pharmacy. No need to notify patient. Patient phones requesting refills as follows: Requested Prescriptions Pending Prescriptions Disp Refills lisinopril-hydroCHLOROthiazide (ZESTORETIC) 20-25 mg per tablet 90 tablet 3 Sig: Take 1 tablet by mouth once daily. Please review and advise. Gina Reed documented in this encounter [facility] 10-01-2022 Note HNO ID: [id number] Author: Dale Guallpa MD Service: ? Author Type: Physician Type: Progress Notes Filed: 10/01/2022 9:05 AM Note Text: HISTORY AND PHYSICAL Merrick Muñoz 1940 REFERRING PHYSICIAN: Christine Grace APRN.C* CHIEF COMPLAINT: Consult (Rectal bleeding. ) HPI: The patient is a 82 year old male referred for endoscopy. Merrick notes recent history of rectal bleeding. He was seen in primary care with rectal bleeding and referred for evaluation. On further discussion, the patient noted an episode of constipation and some straining he then noted some anal discomfort for 2 to 3 days and then noted bleeding on the toilet paper and in the bowl. He denied blood mixed within the stools he noted no other GI complaints other than the issues with constipation The patient notes no history of upper GI complaints. Merrick has undergone prior endoscopy. He underwent colonoscopy 5 years ago and had a serrated polyp removed. The patient is being seen by me today at the request of Christine Grace APRN.C* my opinion and advice regarding rectal bleeding and need for follow-up screening for personal history of colon polyps. 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 Take with food hydroxyurea (HYDREA) 500 mg capsule Take 2 capsules by mouth once daily. phenytoin ER (DILANTIN) 100 mg ER capsule Take 2 capsules by mouth once daily. phenytoin ER (DILANTIN) 30 mg ER capsule Take 2 capsules by mouth once daily. memantine (NAMENDA) 5 mg tablet Take 1 tablet by mouth once daily. lisinopril-hydroCHLOROthiazide (PRINZIDE, ZESTORETIC) 20-25 mg per tablet Take 1 tablet by mouth once daily. tamsulosin (FLOMAX) 0.4 mg Take 1 capsule by mouth once daily at bedtime lisinopril (ZESTRIL, PRINIVIL) 5 mg tablet DAILY levothyroxine (SYNTHROID) 137 mcg tablet Take 1 tablet by mouth once daily. Take on empty stomach. For thyroid. ergocalciferol 50,000 unit capsule (VITAMIN D2, DRISDOL) Take 1 capsule by mouth one time a week. CPAP 1 Units as directed. Please provide AutoCPAP 7-10 cm H2O, lifetime supplies - including mask (nasal pillow masks or patient preference), heated humidity, heated tubing, filters. Please provide 30 day download to [phone]. DME: [employer] [phone] Diagnosis: G47.33 CPAP Auto titrating PAP device with humidification set at a range of 7-12 cmH2O. PAP download in 4 weeks. A medium ResMed AirFit N20 nasal mask. Life time supplies. cyanocobalamin (VITAMIN B-12) 500 mcg tablet Take 1 tablet by mouth once daily. aspirin, enteric coated (ASPIRIN, ENTERIC COATED) 81 mg EC tablet Take 81 mg by mouth once daily. peg 3350-Electrolytes (GOLYTELY) 236-22.74-6.74 -5.86 gram suspension Take 4,000 mL by mouth one time only for 1 dose. Refer to printed prep instructions from your provider. levoFLOXacin (LEVAQUIN) 750 mg tablet DAILY (Patient not taking: Reported on 12/10/2021) cephALEXin (KEFLEX) 500 mg capsule TAKE 1 CAPSULE BY MOUTH THREE TIMES DAILY WITH FOOD FOR 5 DAYS (Patient not taking: Reported on 12/10/2021) No current facility-administered medications for this visit. ALLERGIES: Patient has no known allergies. PERSONAL HISTORY: Social History Tobacco Use Smoking status: Former Types: Pipe Quit date: 03/24/1972 Years since quittin.5 Smokeless tobacco: Never Tobacco comments: Pt stated he only smoked for a short time Vaping Use Vaping Use: Never used Substance Use Topics Alcohol use: No Drug use: No FAMILY HISTORY: FAMILY HISTORY Problem Relation Age of Onset GI Mother Hypertension Mother other (migraine) Mother Alzheimer's Disease Father Cancer Father Kidney Disease Sister Arthritis Brother Cancer Brother REVIEW OF SYMPTOMS: PHYSICAL EXAMINATION: General: The patient is 82 year old male, well nourished, well hydrated in no acute distress. The patient is oriented to time, place, and person. VITALS: Blood pressure 140/72, pulse (!) 59, temperature 36.3 ?C (97.3 ?F), height 177.8 cm (5' 10 ), weight 98.3 kg (216 lb 12.8 oz), SpO2 99 %. Body mass index is 31.11 kg/m?. HEENT: Normal cephalic, ataumatic, pupils are equally round, sclera are anicteric, m (more content not included)... [facility] 10-01-2022 Nurse Note REVIEW OF SYSTEMS: General: The patient denies fatigue, denies weight loss, denies weight gain, denies feeling hot, and denies feelings of cold. Eyes: The patient denies glaucoma, denies eye injury/surgery, wears glasses or contacts. Ear/Nose/Throat: The patient denies allergies, denies hayfever, denies ear infections, and denies bloody noses. Cardiovascular: The patient denies chest pain, denies heart disease, denies high blood pressure,denies cardiac stent, denies prior heart attack, denies irregular heart beat, denies high cholesterol, denies poor circulation, denies heart failure, other cardiac issues, denies claudication, denies cold feet, denies peripheral arterial stent. Respiratory: The patient denies tuberculosis, denies pneumonia, denies frequent cough, denies pulmonary embolism, denies shortness of breath, and denies coughing up blood. Gastrointestinal: The patient denies difficulty swallowing, denies acid reflux, denies ulcers, denies vomiting, denies jaundice/hepatitis, denies gallbladder problems, denies black or tarry stools, denies hemorrhoids, denies bleeding from rectum, denies diverticulitis, denies constipation, denies diarrhea, denies loss of stool control, and NOTES hernias. Kidney/Bladder: The patient NOTES kidney stones, NOTES urine infections, and NOTES bloody urine. Skin: The patient denies a history of skin cancer, denies bleeding/changing moles, and denies a history of skin rash. Neurologic: The patient NOTES a history of epilepsy/convulsions, NOTES headaches, denies head/spinal injuries, and denies stroke/TIA. Psychiatric: The patient denies psychiatric medications, denies depression, and denies voices, denies substance abuse. Endocrine: The patient NOTES thyroid disorders, denies diabetes, and denies hormonal problems. Hematologic: The patient denies a history of bruising, denies bleeding, and denies anemia, NOTES blood clots. Infections: The patient NOTES a history of measles and mumps, denies rheumatic fever, and denies sexually transmitted diseases. Musculoskeletal: The patient denies back pain/injury, denies back problems, denies sciatica, NOTES knee/foot trouble, NOTES arthritis, or denies gout. When was patient's last Mammogram screening? N/A Last Colonoscopy: 05/17/2016 Dimple Lee RN documented in this encounter [facility] 10-01-2022 History of Present illness Narrative HISTORY AND PHYSICAL Merrick Muñoz 1940 REFERRING PHYSICIAN: Christine Grace APRN.C* CHIEF COMPLAINT: Consult (Rectal bleeding. ) HPI: The patient is a 82 year old male referred for endoscopy. Merrick notes recent history of rectal bleeding. He was seen in primary care with rectal bleeding and referred for evaluation. On further discussion, the patient noted an episode of constipation and some straining he then noted some anal discomfort for 2 to 3 days and then noted bleeding on the toilet paper and in the bowl. He denied blood mixed within the stools he noted no other GI complaints other than the issues with constipation The patient notes no history of upper GI complaints. Merrick has undergone prior endoscopy. He underwent colonoscopy 5 years ago and had a serrated polyp removed. The patient is being seen by me today at the request of Christine Grace APRN.C* my opinion and advice regarding rectal bleeding and need for follow-up screening for personal history of colon polyps. 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 Take with food hydroxyurea (HYDREA) 500 mg capsule Take 2 capsules by mouth once daily. phenytoin ER (DILANTIN) 100 mg ER capsule Take 2 capsules by mouth once daily. phenytoin ER (DILANTIN) 30 mg ER capsule Take 2 capsules by mouth once daily. memantine (NAMENDA) 5 mg tablet Take 1 tablet by mouth once daily. lisinopril-hydroCHLOROthiazide (PRINZIDE, ZESTORETIC) 20-25 mg per tablet Take 1 tablet by mouth once daily. tamsulosin (FLOMAX) 0.4 mg Take 1 capsule by mouth once daily at bedtime lisinopril (ZESTRIL, PRINIVIL) 5 mg tablet DAILY levothyroxine (SYNTHROID) 137 mcg tablet Take 1 tablet by mouth once daily. Take on empty stomach. For thyroid. ergocalciferol 50,000 unit capsule (VITAMIN D2, DRISDOL) Take 1 capsule by mouth one time a week. CPAP 1 Units as directed. Please provide AutoCPAP 7-10 cm H2O, lifetime supplies - including mask (nasal pillow masks or patient preference), heated humidity, heated tubing, filters. Please provide 30 day download to [phone]. [facility] – [place]: [phone] Diagnosis: G47.33 CPAP Auto titrating PAP device with humidification set at a range of 7-12 cmH2O. PAP download in 4 weeks. A medium ResMed AirFit N20 nasal mask. Life time supplies. cyanocobalamin (VITAMIN B-12) 500 mcg tablet Take 1 tablet by mouth once daily. aspirin, enteric coated (ASPIRIN, ENTERIC COATED) 81 mg EC tablet Take 81 mg by mouth once daily. peg 3350-Electrolytes (GOLYTELY) 236-22.74-6.74 -5.86 gram suspension Take 4,000 mL by mouth one time only for 1 dose. Refer to printed prep instructions from your provider. levoFLOXacin (LEVAQUIN) 750 mg tablet DAILY (Patient not taking: Reported on 12/10/2021) cephALEXin (KEFLEX) 500 mg capsule TAKE 1 CAPSULE BY MOUTH THREE TIMES DAILY WITH FOOD FOR 5 DAYS (Patient not taking: Reported on 12/10/2021) No current facility-administered medications for this visit. ALLERGIES: Patient has no known allergies. PERSONAL HISTORY: Social History Tobacco Use Smoking status: Former Types: Pipe Quit date: 03/24/1972 Years since quittin.5 Smokeless tobacco: Never Tobacco comments: Pt stated he only smoked for a short time Vaping Use Vaping Use: Never used Substance Use Topics Alcohol use: No Drug use: No FAMILY HISTORY: FAMILY HISTORY Problem Relation Age of Onset GI Mother Hypertension Mother other (migraine) Mother Alzheimer's Disease Father Cancer Father Kidney Disease Sister Arthritis Brother Cancer Brother REVIEW OF SYMPTOMS: PHYSICAL EXAMINATION: General: The patient is 82 year old male, well nourished, well hydrated in no acute distress. The patient is oriented to time, place, and person. VITALS: Blood pressure 140/72, pulse (!) 59, temperature 36.3 C (97.3 F), height 177.8 cm (5' 10 ), weight 98.3 kg (216 lb 12.8 oz), SpO2 99 %. Body mass index is 31.11 kg/m . HEENT: Normal cephalic, ataumatic, pupils are equally round, sclera are anicteric, mucous membranes are moist, oropharynx is clear. Neck has no masses, asymmetry or lymphadenopathy. Thyroid is unremarkable. Respiratory: Clear to auscultation and percussion. Normal respiratory excursion and pattern. Cardiac: Examination is regular rate and rhythm. Abdominal exam: Soft, nontender, with no palpable masses. No hepatosplenomegaly. No palpable hernias. Rectal exam: The patient has a right lateral thrombosed hemorrhoid which is drained spontaneously and is still a small amount of clot present. Digital rectal exam was deferred Extremities: no clubbing, cyanosis or edema. No adenopathy. Other: LABORATORY VALUES: As Noted RADIOLOGIC STUDIES: As Noted Assessment IMPRESSION: Thrombosed hemorrhoid spontaneously drained-resolving, need for screening colonoscopy PLAN: I plan to perform lower endoscopy. We discussed the risks and benefits of the planned endoscopy. I have informed the patient that complications can occur including failure to complete the endoscopy and perforation. The patient had the opportunity to ask questions concerning the planned endoscopy. My staff has also explained the procedure to the patient in understandable terms and has given the patient printed material concerning the procedure. The patient freely consents to surgery. I plan to use golytely bowel preparation for endoscopy Discussed with area that he had a thrombosed hemorrhoid which drained spontaneously and resolved. We discussed ways to minimize the risk of thrombosed hemorrhoid recurrence such as keeping her stools soft and distensible without straining on the toilet also avoiding heavy lifting which can also cause hemorrhoidal engorgement. If he notes recurring discomfort or swelling in the area that could be new thrombosed hemorrhoid he is instructed to return to me immediately. Diagnoses: (K64.5) External hemorrhoid, thrombosed (primary encounter diagnosis) (K62.5) Rectal bleeding (Z86.010) Personal history of colonic polyps My findings have been communicated to Lesly via shared medical record. This note will be forwarded to Analisa Daigle MD. Return to Clinic: The patient is instructed to follow-up with me after the testing has been completed. Dale Guallpa MD documented in this encounter [facility] 10-01-2022 Instructions Dale Guallpa MD - 10/01/2022 8:51 AM EDT Images from the original note were not included. Bowel Preparation Instructions for: Golytely, Nulytely, Trilyte or Colyte (polyethylene glycol 3350 and electrolytes) IF YOU DO NOT FOLLOW THESE DIRECTIONS, YOUR COLONOSCOPY WILL BE CANCELLED. [place] Instructions: Your bowel must be empty so that your doctor can clearly view your colon. Follow all of the instructions in this handout EXACTLY as they are written. Do NOT eat any solid food the ENTIRE day before your colonoscopy. Drink only clear liquids. Buy your bowel preparation at least 5 days before your colonoscopy. TRANSPORTATION on the Day of Your Exam A responsible person MUST be present with you at Check In prior to your colonoscopy and REMAIN in the endoscopy area until you are discharged. You are NOT ALLOWED to drive, take a taxi or bus, or leave the Endoscopy Center ALONE. If you do not have a responsible hi lo driver (family member or friend) with you to take you home, your exam cannot be done with sedation and will be cancelled. Please bring a list of all of your current medications, including any Over-the Counter medications with you. Medications If you take insulin, diabetic medications or blood thinners such as Coumadin (warfarin), Plavix (clopidogrel), Ticlid (ticlopidine hydrochloride), Agrylin (anagrelide), Xarelto (Rivaroxaban), Pradaxa (Dabigatran), Eliquis (Apixaban), and Effient (Prasugrel). You MUST call the doctors who orders those medicines for instructions on altering the dosage before your colonoscopy. All other medications should be taken the day of the exam with a sip of water including ASPIRIN. Five (5) Days Before Your Colonoscopy Do NOT take medicines that stop diarrhea - such as Imodium, Kaopectate, or Pepto Bismol. Do NOT take fiber supplements - such as Metamucil, Citrucel, or Perdiem. Do NOT take products that contain iron - such as multi-vitamins (the label lists what is in the products). Do NOT take Vitamin E. Buy the prescription bowel preparation solution at your local pharmacy or [facility] 02/2019 Bowel Preparation Instructions for: Golytely, Nulytely, Trilyte or Colyte (polyethylene glycol 3350 and electrolytes) Three (3) Days Before Your Colonoscopy Do NOT eat high-fiber foods - such as popcorn, beans, seeds (flax, sunflower, quinoa), multigrain bread, nuts, salad/vegetables, or fresh and dried fruit. One (1) Day Before Your Colonoscopy Only drink clear liquids the ENTIRE DAY before your colonoscopy. Do NOT eat any solid foods. Drink at least 8 ounces of clear liquids every hour after waking up. The clear liquids you can drink include: Clear Liquid (NO RED LIQUIDS) DO NOT DRINK Gatorade, Pedialyte or Powerade Clear broth or bouillon Coffee or tea (no milk or non-dairy creamer) Carbonated and non-carbonated soft drinks Naveen-Aid or other fruit flavored drinks Strained fruit juices (no pulp) Jell-O, popsicles, hard candy Water Alcohol Milk or non-dairy creamers Noodles or vegetables in soup Juice with pulp Liquid you cannot see through Do not use tobacco/vaping products The bowel preparation solution will be consumed in two parts. Mix the solution the evening before your colonoscopy and refrigerate before drinking. You may add the flavor pack that came with the bowel preparation. Do NOT add ice, sugar or any other flavorings to the solution. Part 1 At 6:00 PM - 2 Evenings before your colonoscopy Drink an 8-oz glass of bowel preparation every 10 minutes for a total of half the jug Part 2 At 6:00 PM - Evening before your colonoscopy Drink an 8-oz glass of bowel preparation every 10 minutes for a total the second half of the jug You may continue to drink clear liquids until midnight. The following instructions are important for you related to your office visit today with the [facility]. INSTRUCTIONS FOR THROMBOSED HEMORRHOIDS You have a thrombosed hemorrhoid which drained spontaneously and is the cause of your bleeding. I recommend regulation of stools to keep bowel movements and soft. Constipation and straining are the most frequent aggravating factor for hemorrhoids. I recommend fiber supplementation once your bowels are moving well. If your constipation is not improving with fiber, I recommend a stool softener. For episodes of increased symptomatic hemorrhoidal discomfort, I recommend sitz baths, dibucaine ointment, and baby wipes. If this does not cause relief or if there are additional thrombosed hemorrhoids, you are instructed to return immediately. If you have any difficulties or concerns, you should contact our office immediately. If you note any additional difficulties, questions, or concerns, you should contact our office immediately @ [phone] and ask to be transferred to the General Surgery department. 2 02/2019 documented in this encounter [facility] 09-27-2022 Miscellaneous Notes Patient notified of recommendations from AKILAH, verbalizes understanding of instructions. Adelina Martin LPN Can you please call the patient and let him know that he can use the Preparation H. There is a warning on the label because medication may increase blood pressure which is similar to cold medications as well. Please let me know if he has additional questions. Thank you. Christine Grace APRN.CENTER DIRECTOR LEAD TEACHER Pt notified and voiced understanding. He did start having some rectal bleeding. He picked up Preparation H tablets that you place into the rectum but hasn't started using it due to warning saying not to take if you are on BP medication. Please advise if ok for pt to use? Ivory Montesinos Ma Can you please call the patient and let him know that I reviewed his lab results. I do not see any signs that are concerning for blood loss. Labs seem to be consistent with his normal baseline. I did see in his past records that he used to follow with oncology/hematology, Dr. Terrell. Per the last office note he recommended to follow-up every 6 months. Can you please verify if his plan is to follow-up with their practice in the future? Can you please ask how his rectal bleeding has been? Has he started the Preparation H? I would recommend that he keep upcoming appointment with Dr. Jesus. Thank you. Christine Grace APRN.AKILAH documented in this encounter [facility] 09-27-2022 Miscellaneous Notes Patient was referred to general surgery. Patient has an appointment with Dr. Guallpa on 10/01/22. Okay to wait and see if referral is needed per Dr. Guallpa. Lynda Phillips RN Patient called to schedule appointment with Dr. Terrell. Please see encounter 09/27-[place]. Patient states he is having rectal bleeding and is scheduled to see Dr. Guallpa. Please advise if we are to schedule an appointment with patient now or wait until results from Dr. Guallpa's office. No referral entered. documented in this encounter [facility] 09-27-2022 Note HNO ID: [id number] Author: Travon Tipton Service: ? Author Type: ? Type: Progress Notes Filed: 09/27/2022 12:03 PM Note Text: POPULATION HEALTH NAVIGATION OUTREACH Action/FYI Pt declined at this time, not ready yet Patient Identified by Name and : YES, via phone Outreach Outcome/Action Spoke to patient / parent / legal guardian: Patient will return the call or ask for return call Did you use a PCP flex slot to schedule this appointment? No Reason for Outreach Care Gap or Scheduling/Wellness visits Payer: Payor: [facility], [facility] [employer] / Plan: [employer] MEDICARE PPO / Product Type: PPO / Care Gap Reviewed:: Specialty Scheduling Reminder: Reminder note to check Health Maintenance for items below Health Maintenance items due: DTAP,TDAP,TD(1 - Tdap) due on 04/15/2015 COVID-19 VACCINE(3 - Booster for Pfizer series) due on 08/03/2020 ADVANCE DIRECTIVE DISCUSSION Never done DEPRESSION ASSESSMENT Never done Navigation Signature: Travon Tipton September 27, 2022 12:02 PM [facility] 09-27-2022 Note Patient Outreach (AC CC) MERRICK MUÑOZ ([id number]) 1940 M Date Time Provider Department 09/27/22 PCP ([facility]) [facility] During your visit today, we recorded the following information about you: Travon Tipton 09/27/2022 12:03 PM Signed POPULATION HEALTH NAVIGATION OUTREACH Action/FYI Pt declined at this time, not ready yet Patient Identified by Name and : YES, via phone Outreach Outcome/Action Spoke to patient / parent / legal guardian: Patient will return the call or ask for return call Did you use a PCP flex slot to schedule this appointment? No Reason for Outreach Care Gap or Scheduling/Wellness visits Payer: Payor: [employer], [facility] MEDICARE / Plan: [employer] MEDICARE PPO / Product Type: PPO / Care Gap Reviewed:: Specialty Scheduling Reminder: Reminder note to check Health Maintenance for items below Health Maintenance items due: DTAP,TDAP,TD(1 - Tdap) due on 04/15/2015 COVID-19 VACCINE(3 - Booster for Pfizer series) due on 08/03/2020 ADVANCE DIRECTIVE DISCUSSION Never done DEPRESSION ASSESSMENT Never done Navigation Signature: Travon Tipton September 27, 2022 12:02 PM Allergies As of Date: 09/27/2022 (No Known Allergies) Date Reviewed: 09/26/2022 Reviewed by: Adelina Mratin LPN - Fully Assessed Prescriptions as of 09/27/2022 - hydroxyurea (HYDREA) 500 mg capsule Take 2 capsules by mouth once daily. - phenytoin ER (DILANTIN) 100 mg ER capsule Take 2 capsules by mouth once daily. - phenytoin ER (DILANTIN) 30 mg ER capsule Take 2 capsules by mouth once daily. - memantine (NAMENDA) 5 mg tablet Take 1 tablet by mouth once daily. - lisinopril-hydroCHLOROthiazide (PRINZIDE, ZESTORETIC) 20-25 mg per tablet Take 1 tablet by mouth once daily. - tamsulosin (FLOMAX) 0.4 mg Take 1 capsule by mouth once daily at bedtime - levoFLOXacin (LEVAQUIN) 750 mg tablet DAILY - lisinopril (ZESTRIL, PRINIVIL) 5 mg tablet DAILY - cephALEXin (KEFLEX) 500 mg capsule TAKE 1 CAPSULE BY MOUTH THREE TIMES DAILY WITH FOOD FOR 5 DAYS - levothyroxine (SYNTHROID) 137 mcg tablet Take 1 tablet by mouth once daily. Take on empty stomach. For thyroid. - ergocalciferol 50,000 unit capsule (VITAMIN D2, DRISDOL) Take 1 capsule by mouth one time a week. - CPAP 1 Units as directed. Please provide AutoCPAP 7-10 cm H2O, lifetime supplies - including mask (nasal pillow masks or patient preference), heated humidity, heated tubing, filters. Please provide 30 day download to [phone]. DME: [facility] [place] [phone] Diagnosis: G47.33 - CPAP Auto titrating PAP device with humidification set at a range of 7-12 cmH2O. ?PAP download in 4 weeks. A medium ResMed AirFit N20 nasal mask. Life time supplies. - cyanocobalamin (VITAMIN B-12) 500 mcg tablet Take 1 tablet by mouth once daily. - aspirin, enteric coated (ASPIRIN, ENTERIC COATED) 81 mg EC tablet Take 81 mg by mouth once daily. 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] 04/06/2014 Bilateral renal stones [N20.0] 01/29/2016 Thrombocytosis (HCC) [D75.839] 03/21/2016 Rectal bleeding [K62.5] 05/17/2016 05/17/2016 Hyperlipidemia with target LDL less than 130 [E*06/13/2016 Essential hypertension [I10] 06/13/2016 Myeloproliferative disease (HCC) [D47.1] 07/29/2016 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] 04/09/2019 COVID-19 [U07.1] 08/10/2019 Excessive daytime sleepiness [G47.19] 11/23/2019 Loud snoring [R06.83] 11/23/2019 Chronic anxiety [F41.9] 06/12/2020 Vitamin D deficiency [E55.9] 06/12/2020 Tinea unguium [B35.1] 06/12/2020 BARTOLO (obstructive sleep apnea) [G47.33] 08/09/2020 Dizziness [R42] 04/06/2021 Encounter Status:Closed by TRAVON TIPTON on 09/27/22 [facility] 09-27-2022 History of Present illness Narrative POPULATION HEALTH NAVIGATION OUTREACH Action/FYI Pt declined at this time, not ready yet Patient Identified by Name and : YES, via phone Outreach Outcome/Action Spoke to patient / parent / legal guardian: Patient will return the call or ask for return call Did you use a PCP flex slot to schedule this appointment? No Reason for Outreach Care Gap or Scheduling/Wellness visits Payer: Payor: [employer] MEDICARE / Plan: AET MEDICARE PPO / Product Type: PPO / Care Gap Reviewed:: Specialty Scheduling Reminder: Reminder note to check Health Maintenance for items below Health Maintenance items due: DTAP,TDAP,TD(1 - Tdap) due on 04/15/2015 COVID-19 VACCINE(3 - Booster for Pfizer series) due on 08/03/2020 ADVANCE DIRECTIVE DISCUSSION Never done DEPRESSION ASSESSMENT Never done Navigation Signature: Travon Tipton September 27, 2022 12:02 PM documented in this encounter [facility] 09-26-2022 Note HNO ID: [id number] Author: Christine Grace APRN.CENTER DIRECTOR LEAD TEACHER Service: ? Author Type: Nurse Practitioner Type: Progress Notes Filed: 09/26/2022 11:59 AM Note Text: This is a 82 year old male who presents today with: Patient presents with: Acute Visit: rectal bleeding and foot pain HISTORY OF PRESENT ILLNESS: Merrick Muñoz is a 82 year old male. Patient presents with: Acute Visit: rectal bleeding and foot pain Pt refers recently in the morning he has been experiencing some anal leakage. 4 days ago patient had a sore rectum that has improved until today when he wiped and there was blood on the toilet paper after wiping two different times. No hx of hemorrhoids, but does admit to straining for BM. Usually has BM once or twice a day Denies abdominal pain, dizziness, or increased fatigue Rectal Bleeding: Has had this issue in the past, colonoscopy [place] [address] Prieto with polyp removed Foot pain: outside left foot pain near pinky toe that gets irritated with strenuous walking. Denies numbness/tingling or heal pain. 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 MEDICATIONS Current Outpatient Medications Medication Sig phenytoin ER (DILANTIN) 30 mg ER capsule Take 2 capsules by mouth once daily. memantine (NAMENDA) 5 mg tablet Take 1 tablet by mouth once daily. lisinopril-hydroCHLOROthiazide (PRINZIDE, ZESTORETIC) 20-25 mg per tablet Take 1 tablet by mouth once daily. tamsulosin (FLOMAX) 0.4 mg Take 1 capsule by mouth once daily at bedtime levothyroxine (SYNTHROID) 137 mcg tablet Take 1 tablet by mouth once daily. Take on empty stomach. For thyroid. ergocalciferol 50,000 unit capsule (VITAMIN D2, DRISDOL) Take 1 capsule by mouth one time a week. CPAP Auto titrating PAP device with humidification set at a range of 7-12 cmH2O. PAP download in 4 weeks. A medium ResMed AirFit N20 nasal mask. Life time supplies. cyanocobalamin (VITAMIN B-12) 500 mcg tablet Take 1 tablet by mouth once daily. aspirin, enteric coated (ASPIRIN, ENTERIC COATED) 81 mg EC tablet Take 81 mg by mouth once daily. phenytoin ER (DILANTIN) 100 mg ER capsule Take 2 capsules by mouth once daily. hydroxyurea (HYDREA) 500 mg capsule Take 2 capsules by mouth once daily. levoFLOXacin (LEVAQUIN) 750 mg tablet DAILY (Patient not taking: Reported on 12/10/2021) lisinopril (ZESTRIL, PRINIVIL) 5 mg tablet DAILY cephALEXin (KEFLEX) 500 mg capsule TAKE 1 CAPSULE BY MOUTH THREE TIMES DAILY WITH FOOD FOR 5 DAYS (Patient not taking: Reported on 12/10/2021) CPAP 1 Units as directed. Please provide AutoCPAP 7-10 cm H2O, lifetime supplies - including mask (nasal pillow masks or patient preference), heated humidity, heated tubing, filters. Please provide 30 day download to [phone]. DME: [place] [phone] Diagnosis: G47.33 No current facility-administered medications for this visit. FAMILY HISTORY Problem Relation Age of Onset GI Mother Hypertension Mother other (migraine) Mother Alzheimer's Disease Father Cancer Father Kidney Disease Sister Arthritis Brother Cancer Brother Social History Tobacco Use Smoking status: Former Types: Pipe Quit date: 03/24/1972 Years since quittin.5 Smokeless tobacco: Never Tobacco comments: Pt stated he only smoked for a short time Substance Use Topics Alcohol use: No Drug use: No REVIEW OF SYSTEMS GENERAL: No weight loss, malaise or fevers/chills HEENT: Negative for frequent or significant headaches, No changes in hearing or vision. NECK: Negative for lumps, goiter, pain and significant neck swelling RESPIRATORY: Negative for cough, hemoptysis, wheezing, dyspnea or shortness of breath CARDIOVASCULAR: Negative for chest pain, leg swelling, orthopnea, or palpitations GI: +rectal bleeding : No history of dysuria, frequency or incontinence MUSCULOSKELETAL: +left foot pain SKIN: Negative for lesions, rash, and itching ENDOCRINE: Negative for cold or heat intolerance, polyuria, polydipsia and goiter NEURO: No history of headaches, syncope, paralysis, seizures or tremors MOOD: Negative for depression, anxiety, or suicidal ideation. EXAM: BP 136/70 Pulse (!) 51 Resp 16 Wt 98.4 kg (217 lb) (more content not included)... [facility] 09-26-2022 Instructions Chula Javier - 09/26/2022 11:31 AM EDT Get labs completed today Schedule with general surgery May use Preporation H as needed Go to ER for red flag symptoms of profuse bleeding, dizziness Recommended wearing well fitted shoes for foot pain- if no improvement schedule appointment with podiatry documented in this encounter [facility] 09-26-2022 History of Present illness Narrative This is a 82 year old male who presents today with: Patient presents with: Acute Visit: rectal bleeding and foot pain HISTORY OF PRESENT ILLNESS: Merrick Muñoz is a 82 year old male. Patient presents with: Acute Visit: rectal bleeding and foot pain Pt refers recently in the morning he has been experiencing some anal leakage. 4 days ago patient had a sore rectum that has improved until today when he wiped and there was blood on the toilet paper after wiping two different times. No hx of hemorrhoids, but does admit to straining for BM. Usually has BM once or twice a day Denies abdominal pain, dizziness, or increased fatigue Rectal Bleeding: Has had this issue in the past, colonoscopy [place] [address] Prieto with polyp removed Foot pain: outside left foot pain near pinky toe that gets irritated with strenuous walking. Denies numbness/tingling or heal pain. 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 MEDICATIONS Current Outpatient Medications Medication Sig phenytoin ER (DILANTIN) 30 mg ER capsule Take 2 capsules by mouth once daily. memantine (NAMENDA) 5 mg tablet Take 1 tablet by mouth once daily. lisinopril-hydroCHLOROthiazide (PRINZIDE, ZESTORETIC) 20-25 mg per tablet Take 1 tablet by mouth once daily. tamsulosin (FLOMAX) 0.4 mg Take 1 capsule by mouth once daily at bedtime levothyroxine (SYNTHROID) 137 mcg tablet Take 1 tablet by mouth once daily. Take on empty stomach. For thyroid. ergocalciferol 50,000 unit capsule (VITAMIN D2, DRISDOL) Take 1 capsule by mouth one time a week. CPAP Auto titrating PAP device with humidification set at a range of 7-12 cmH2O. PAP download in 4 weeks. A medium ResMed AirFit N20 nasal mask. Life time supplies. cyanocobalamin (VITAMIN B-12) 500 mcg tablet Take 1 tablet by mouth once daily. aspirin, enteric coated (ASPIRIN, ENTERIC COATED) 81 mg EC tablet Take 81 mg by mouth once daily. phenytoin ER (DILANTIN) 100 mg ER capsule Take 2 capsules by mouth once daily. hydroxyurea (HYDREA) 500 mg capsule Take 2 capsules by mouth once daily. levoFLOXacin (LEVAQUIN) 750 mg tablet DAILY (Patient not taking: Reported on 12/10/2021) lisinopril (ZESTRIL, PRINIVIL) 5 mg tablet DAILY cephALEXin (KEFLEX) 500 mg capsule TAKE 1 CAPSULE BY MOUTH THREE TIMES DAILY WITH FOOD FOR 5 DAYS (Patient not taking: Reported on 12/10/2021) CPAP 1 Units as directed. Please provide AutoCPAP 7-10 cm H2O, lifetime supplies - including mask (nasal pillow masks or patient preference), heated humidity, heated tubing, filters. Please provide 30 day download to [phone]. DME: [facility] [place] [phone] Diagnosis: G47.33 No current facility-administered medications for this visit. FAMILY HISTORY Problem Relation Age of Onset GI Mother Hypertension Mother other (migraine) Mother Alzheimer's Disease Father Cancer Father Kidney Disease Sister Arthritis Brother Cancer Brother Social History Tobacco Use Smoking status: Former Types: Pipe Quit date: 03/24/1972 Years since quittin.5 Smokeless tobacco: Never Tobacco comments: Pt stated he only smoked for a short time Substance Use Topics Alcohol use: No Drug use: No REVIEW OF SYSTEMS GENERAL: No weight loss, malaise or fevers/chills HEENT: Negative for frequent or significant headaches, No changes in hearing or vision. NECK: Negative for lumps, goiter, pain and significant neck swelling RESPIRATORY: Negative for cough, hemoptysis, wheezing, dyspnea or shortness of breath CARDIOVASCULAR: Negative for chest pain, leg swelling, orthopnea, or palpitations GI: +rectal bleeding : No history of dysuria, frequency or incontinence MUSCULOSKELETAL: +left foot pain SKIN: Negative for lesions, rash, and itching ENDOCRINE: Negative for cold or heat intolerance, polyuria, polydipsia and goiter NEURO: No history of headaches, syncope, paralysis, seizures or tremors MOOD: Negative for depression, anxiety, or suicidal ideation. EXAM: BP 136/70 Pulse (!) 51 Resp 16 Wt 98.4 kg (217 lb) SpO2 98% BMI 31.14 kg/m PHYSICAL EXAM: General Appearance: Well appearing, alert, in no acute distress, well-hydrated, well nourished. Skin: Skin color, texture, turgor normal, no suspicious rashes or lesions. Head: Normocephalic, no masses, lesions, tenderness or abnormalities. Eyes: Anicteric sclera. Extraocular movements are intact. Lungs: Lungs clear to auscultation. No wheezing, rhonchi, rales. Heart: RRR without murmur, gallop, or rubs. No ectopy. Abdomen: Normal abdominal exam, Abdomen soft, non-tender. Bowel sounds normal. No masses, organomegaly. Extremities: No deformities, edema, skin discoloration, clubbing or cyanosis. Good capillary refill. +mild erythema to the lateral aspect of left foot near small toe, normal sensation Musculoskeletal: No joint swelling, deformity, or tenderness. Peripheral Pulses: Normal, Capillary refill <2secs, strong peripheral pulses, Pulses palpable. Neurologic: Gait normal. Rectal: Positive findings: scant blood noted around anus and in underwear, external hemorrhoid at 2 o'clock. ASSESSMENT/PLAN: 1. Rectal bleeding - ICD9: 569.3, ICD10: K62.5 (primary diagnosis) - Discussed red flag symptoms for ER- dizziness, profuse rectal bleeding - Get blood work today to r/o anemia - Schedule appointment with general surgery - Recommend using [id number] Preparation H. - CBC + DIFF - IRON + TIBC - FERRITIN BLD - CONSULT TO GENERAL SURGERY - COMP METABOLIC PANEL 2. Dizziness - ICD9: 780.4, ICD10: R42 - Same plan as #1. 3. Foot pain, left - ICD9: 729.5, ICD10: M79.672 - Recommend wearing well fitting shoes. - Discussed xray in the future if the pain persists. - Consult to podiatry if no improvement - CONSULT TO PODIATRY 4. Thrombocytosis - ICD9: 238.71, ICD10: D75.839 - Refill medication - HYDROXYUREA 500 MG CAPSULE 5. 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 Follow up pending test results or sooner as needed. Discussed treatment plan and patient voices understanding. Patient's questions answered appropriately. Medications and potential side effects were discussed and patient voices understanding. Christine Grace APRN.CENTER DIRECTOR LEAD TEACHER This note was partially generated using Content[employer] recognition system. Note was reviewed for accuracy. There may be minor misspellings or grammar miscues with B[employer]her[employer] voice recognition. documented in this encounter [facility] 07-23-2022 Note HNO ID: [id number] Author: Jana Slater APRN.AKILAH Service: ? Author Type: Nurse Practitioner Type: Progress Notes Filed: 07/23/2022 11:21 AM Note Text: AMBULATORY TELEPHONE VISIT Merrick Muñoz has consented to this telephone encounter. Persons Present: patient Chief Complaint/Reason: Covid positive HPI: Patient presents for positive covid 19 test. Patient reports onset of symptoms 07/20/2022 with sore throat, runny nose, congestion. Patient reports he has been taking cough drops. Patient was unable to login via Run3D. Data Reviewed: Most recent labs Total Time Spent: {DOCUMENT TOTAL TIME SPENT BUT CAN ONLY BILL for 5-30 MINUTES:* 12minutes Molnupiravir Eligibility and Patient Discussion [facility] Formulary Restriction Criteria: Adult outpatients 18 years and older with ALL of the following: [x] Patient has symptoms for 5 days or less [x] Not requiring hospitalization at any time for management of COVID-19 [x] Not requiring supplemental oxygen or a change in baseline supplemental oxygen [x] Not utilized for pre-exposure or post-exposure prophylaxis for prevention of COVID-19 [x] Patient is not or lactating [x] Meeting at least one of the criteria for high risk of progression to severe COVID-19: [x] Age over 65 years [] Cancer [] Chronic kidney disease [] Chronic liver disease [] Chronic lung diseases, including cystic fibrosis [] Dementia or other neurological conditions [] Diabetes (type 1 or type 2) [] Disabilities, including Down syndrome and neurodevelopmental disorders [x] Heart conditions [] HIV infection [x] Immunocompromised state [] Mental health conditions [] Medical related technological dependence (tracheostomy, gastrostomy, or positive pressure ventilation (not related to COVID) [] Overweight and obesity (BMI greater or equal to 25 for adults) [] Physical inactivity [] Sickle cell disease or thalassemia [] Smoking, current or former [] Solid organ or blood stem cell transplant [] Stroke or cerebrovascular disease [] Substance use disorders [] Tuberculosis [] People from racial and ethnic minority groups Criteria above are met: Yes Date of Symptom Onset: 07/20/2022 Patient received COVID vaccine: Yes / status reviewed: Females: [] Patient is not currently and there is no possibility the patient could be (select one of the following): [] test does not need to be confirmed in patients who have undergone permanent sterilization, are currently using an intrauterine system or contraceptive implant, or in whom is not possible. [] Patients not meeting conditions above: assess whether the patient is based on the first day of the last menstrual period in individuals who have regular menstrual cycles, is using reliable method of contraception correctly and consistently or have had a negative test [] A test is recommended if the individual has irregular menstrual cycles, is unsure of the first day of the last menstrual period or is not using effective contraception correctly and consistently [] Patient is not currently . is not recommended during treatment and for four days after final dose of molnupiravir. [] Females have been advised to use a reliable method of contraception correctly and consistently for the duration of treatment and for four days after the last dose of molnupiravir Males: [x] Sexually active male with partner(s) of childbearing potential has been advised to use a reliable method of contraception correctly and consistently for intercourse for the duration of treatment and for three months after the last dose of molnupiravir I have discussed the use of the investigational therapeutic, molnupiravir, for the treatment of mild to moderate COVID-19 and its use under Emergency Use Authorization with the patient. The patient was informed that molnupiravir is not an FDA approved drug and that it is authorized for use under this Emergency Use Authorization. The patient was also informed of the significant known benefits and potential risks of molnupiravir, and the extent to which such potential risks and benefits are unknown. The patient was informed that there is mandatory reporting of all medication errors and serious adverse events potentially related to molnupiravir treatment within 7 calendar days from the onset of the event and that events up to 28 days after completion of therapy need to be reported. The discussion included alternatives to receiving molnupiravir, including clinical trials, and potential the risks and benefits of those alternatives. The patient was provided electronically with the Fact Sheet for Patients, Parents and Caregivers . The patient was also instructed that in addition to the treatment with molnupiravir, he/she should continue to self-isolate a (more content not included)... [facility] 07-23-2022 Instructions Jana Slater APRN.[facility] - 07/23/2022 11:19 AM EDT Fact Sheet for Patients And Caregivers Emergency Use Authorization (EUA) Of LAGEVRIO (molnupiravir) capsules For Coronavirus Disease 2019 (COVID-19) What is the most important information I should know about LAGEVRIO? LAGEVRIO may cause serious side effects, including: LAGEVRIO may cause harm to your unborn baby. It is not known if LAGEVRIO will harm your baby if you take LAGEVRIO during . LAGEVRIO is not recommended for use in . LAGEVRIO has not been studied in . LAGEVRIO was studied in animals only. When LAGEVRIO was given to animals, LAGEVRIO caused harm to their unborn babies. You and your healthcare provider may decide that you should take LAGEVRIO during if there are no other COVID-19 treatment options approved or authorized by the FDA that are accessible or clinically appropriate for you. If you and your healthcare provider decide that you should take LAGEVRIO during , you and your healthcare provider should discuss the known and potential benefits and the potential risks of taking LAGEVRIO during . For individuals who are able to become : You should use a reliable method of control (contraception) consistently and correctly during treatment with LAGEVRIO and for 4 days after the last dose of LAGEVRIO. Talk to your healthcare provider about reliable control methods. Before starting treatment with LAGEVRIO your healthcare provider may do a test to see if you are before starting treatment with LAGEVRIO. Tell your healthcare provider right away if you become or think you may be during treatment with LAGEVRIO. Registry: There is a registry for individuals who take LAGEVRIO during . The purpose of this program is to collect information about the health of you and your baby. If you are or become during treatment with LAGEVRIO, you are encouraged to report your use of LAGEVRIO during to this registry at https://covid-pr.[employer].com or . For individuals who are sexually active with partners who are able to become : It is not known if LAGEVRIO can affect sperm. While the risk is regarded as low, animal studies to fully assess the potential for LAGEVRIO to affect the babies of males treated with LAGEVRIO have not been completed. A reliable method of control (contraception) should be used consistently and correctly during treatment with LAGEVRIO and for at least 3 months after the last dose. The risk to sperm beyond 3 months is not known. Studies to understand the risk to sperm beyond 3 months are ongoing. Talk to your healthcare provider about reliable control methods. Talk to your healthcare provider if you have questions or concerns about how LAGEVRIO may affect sperm. You are being given this fact sheet because your healthcare provider believes it is necessary to provide you with LAGEVRIO for the treatment of adults with a current diagnosis of mild-tomoderate coronavirus disease 2019 (COVID-19) who are at high risk for progression to severe COVID-19, including hospitalization or , and for whom other COVID-19 treatment options approved or authorized by the FDA are not accessible or clinically appropriate. The [place]. Food and Drug Administration (FDA) has issued an Emergency Use Authorization (EUA) to make LAGEVRIO available during the COVID-19 pandemic (for more details about an EUA please see What is an Emergency Use Authorization? at the end of this document). LAGEVRIO is not an FDA-approved medicine in the [place]. Read this Fact Sheet for information about LAGEVRIO. Talk to your healthcare provider about your options if you have any questions. It is your choice to take LAGEVRIO. What is COVID-19? COVID-19 is caused by a virus called a coronavirus. You can get COVID-19 through close contact with another person who has the virus. COVID-19 illnesses have ranged from very juhr-pw-xzfdtl, including illness resulting in . While information so far suggests that most COVID-19 illness is mild, serious illness can happen and may cause some of your other medical conditions to become worse. Older people and people of all ages with severe, long lasting (chronic) medical conditions like heart disease, lung disease and diabetes, for example seem to be at higher risk of being hospitalized for COVID-19. What is LAGEVRIO? LAGEVRIO is an investigational medicine used to treat adults with a current diagnosis of mild to moderate COVID-19: who are at high risk for progression to severe COVID-19 including hospitalization or , and for whom other COVID-19 treatment options approved or authorized by the FDA are not accessible or clinically appropriate. The FDA has authorized the emergency use of LAGEVRIO for the treatment of mild-tomoderate COVID-19 in adults under an EUA. For more information on EUA, see the What is an Emergency Use Authorization (EUA)? section at the end of this Fact Sheet. LAGEVRIO is not authorized: for use in people less than 18 years of age. for prevention of COVID-19. for people needing hospitalization for COVID-19. for use for longer than 5 consecutive days. What should I tell my healthcare provider before I take LAGEVRIO? Tell your healthcare provider if you: have any allergies are or plan to breastfeed have any serious illnesses Take any medicines including prescription, mkbw-lih-fsfukgw medicines, vitamins, and herbal products. How do I take LAGEVRIO? Take LAGEVRIO exactly as your healthcare provider tells you to take it. Take 4 capsules of LAGEVRIO every 12 hours (for example, at 8 am and at 8 pm) Take LAGEVRIO for 5 days. It is important that you complete the full 5 days of treatment with LAGEVRIO. Do not stop taking LAGEVRIO before you complete the full 5 days of treatment, even if you feel better. Take LAGEVRIO with or without food. You should stay in isolation for as long as your healthcare provider tells you to. Talk to your healthcare provider if you are not sure about how to properly isolate while you have COVID-19. Swallow LAGEVRIO capsules whole. Do not open, break, or crush the capsules. If you cannot swallow capsules whole, tell your healthcare provider. If your healthcare provider prescribes LAGEVRIO and tells you to take or give a dose through a nasogastric (NG) or orogastric (OG) tube, follow the instructions below: How to take or give a dose of LAGEVRIO through a nasogastric (NG) or orogastric (OG) feeding tube. You must have an NG or OG that is size 12 Cypriot (FR) or larger. If you miss a dose of LAGEVRIO: If it has been less than 10 hours since the missed dose, take it as soon as you remember. If it has been more than 10 hours since the missed dose, skip the missed dose and take your dose at the next scheduled time. Do not double the dose of LAGEVRIO to make up for a missed dose. How to take or give a dose of LAGEVRIO through a nasogastric (NG) or orogastric (OG) feeding tube: Wash your hands well with soap and water. Gather the supplies you will need to take or give the prescribed dose of LAGEVRIO. 4 LAGEVRIO capsules 1 liquid measuring cup with mL markings to measure 40 mL of room temperature water 1 clean container with a lid 1 catheter tip syringe. Your healthcare provider should tell you what size catheter tip syringe you will need to take or give a dose of LAGEVRIO. Place the needed supplies on a clean work surface. Follow your healthcare provider s instructions on how to flush the NG or OG feeding tube. Flush the NG or OG feeding tube with 5 mL of water before taking or giving a dose of LAGEVRIO. Carefully open 4 LAGEVRIO capsules, one at a time, and empty the contents into a clean container. Use the liquid measuring cup to measure 40 mL of room temperature water and add to the container containing the capsule contents. Place the lid on the container. Shake to mix the capsule contents and water well for 3 minutes. The capsule contents may not dissolve completely. Remove the lid from the container and draw up all the LAGEVRIO and water mixture into a catheter tip syringe. Give all of the mixture right away through the NG or OG feeding tube. Do not keep the mixture for future use. If any capsule contents are left in the container: Add 10 mL of water to the container, and mix to loosen any capsule contents that are left in the container. Use the catheter tip syringe to draw up all of the mixture in the container. Give the mixture through the NG or OG feeding tube. Repeat this process as needed until you no longer see any capsule contents left in the container or catheter tip syringe. Use the same catheter tip syringe to flush the NG or OG feeding tube 2 times with 5 mL of water (10mL total). Rinse the container, lid and catheter tip syringe well with clean water after use. Place on a clean paper towel until next use. What are the important possible side effects of LAGEVRIO? See, What is the most important information I should know about LAGEVRIO? Allergic Reactions. Allergic reactions can happen in people taking LAGEVRIO, even after only 1 dose. Stop taking LAGEVRIO and call your healthcare provider right away if you get any of the following symptoms of an allergic reaction: hives rapid heartbeat trouble swallowing or breathing swelling of the mouth, lips, or face throat tightness hoarseness skin rash The most common side effects of LAGEVRIO are: diarrhea nausea dizziness These are not all the possible side effects of LAGEVRIO. Not many people have taken LAGEVRIO. Serious and unexpected side effects may happen. This medicine is still being studied, so it is possible that all of the risks are not known at this time. What other treatment choices are there? Veklury (remdesivir) is FDA-approved as an intravenous (IV) infusion for the treatment of mildto-moderate COVID-19 in certain adults and children. Talk with your doctor to see if Veklury is appropriate for you. Like LAGEVRIO, FDA may also allow for the emergency use of other medicines to treat people with COVID-19. Go to https://www.fda.gov/emergency-prep qthiczdt-ffz-jnoouvrl/mcm-legalreg vzaexip-dvq-hbdjpj-framework/emerg omin-aap-eghtkjchjrqhs for more information. It is your choice to be treated or not to be treated with LAGEVRIO. Should you decide not to take it, it will not change your standard medical care. What if I am ? is not recommended during treatment with LAGEVRIO and for 4 days after the last dose of LAGEVRIO. If you are or plan to breastfeed, talk to your healthcare provider about your options and specific situation before taking LAGEVRIO. How do I report side effects with LAGEVRIO? Contact your healthcare provider if you have any side effects that bother you or do not go away. Report side effects to FDA MedWatch at www.fda.gov/medwatch or call 1-800-fda-1088 (1214.407.2584). How should I store LAGEVRIO? Store LAGEVRIO capsules at room temperature between 68 F to 77 F (20 C to 25 C). Keep LAGEVRIO and all medicines out of the reach of children. How can I learn more about COVID-19? Ask your healthcare provider. Visit www.cdc.gov/COVID19 Contact your local or state public health department. Call number[employer] at (toll free in the [place] Visit www.[employer] What Is an Emergency Use Authorization (EUA)? The [place] FDA has made LAGEVRIO available under an emergency access mechanism called an Emergency Use Authorization (EUA) The EUA is supported by a [place] of Health and Human Service ([facility]) declaration that circumstances exist to justify emergency use of drugs and biological products during the COVID-19 pandemic. LAGEVRIO for the treatment of adults with a current diagnosis of ncwa-nd-vowyosia COVID-19 who are at high risk for progression to severe COVID-19, including hospitalization or , and for whom alternative COVID-19 treatment options approved or authorized by FDA are not accessible or clinically appropriate, has not undergone the same type of review as an FDAapproved product. In issuing an EUA under the COVID-19 public health emergency, the FDA has determined, among other things, that based on the total amount of scientific evidence available including data from adequate and well-controlled clinical trials, if available, it is reasonable to believe that the product may be effective for diagnosing, treating, or preventing COVID-19, or a serious or life-threatening disease or condition caused by COVID-19; that the known and potential benefits of the product, when used to diagnose, treat, or prevent such disease or condition, outweigh the known and potential risks of such product; and that there are no adequate, approved, and available alternatives. All of these criteria must be met to allow for the product to be used in the treatment of patients during the COVID-19 pandemic. The EUA for LAGEVRIO is in effect for the duration of the COVID-19 declaration justifying emergency use of LAGEVRIO, unless terminated or revoked (after which LAGEVRIO may no longer be used under the EUA). for: number[employer] [address] For patent information: www.[employer]/research/patent Copyright [employer] [place], [place], [place] and its affiliates. All rights reserved. [id number] Revised: April 2022 documented in this encounter [facility] 07-23-2022 History of Present illness Narrative AMBULATORY TELEPHONE VISIT Merrick Muñoz has consented to this telephone encounter. Persons Present: patient Chief Complaint/Reason: Covid positive HPI: Patient presents for positive covid 19 test. Patient reports onset of symptoms 07/20/2022 with sore throat, runny nose, congestion. Patient reports he has been taking cough drops. Patient was unable to login via [employer]. Data Reviewed: Most recent labs Total Time Spent: {DOCUMENT TOTAL TIME SPENT BUT CAN ONLY BILL for 5-30 MINUTES:* 12minutes Molnupiravir Eligibility and Patient Discussion [facility] Formulary Restriction Criteria: Adult outpatients 18 years and older with ALL of the following: [x] Patient has symptoms for 5 days or less [x] Not requiring hospitalization at any time for management of COVID-19 [x] Not requiring supplemental oxygen or a change in baseline supplemental oxygen [x] Not utilized for pre-exposure or post-exposure prophylaxis for prevention of COVID-19 [x] Patient is not or lactating [x] Meeting at least one of the criteria for high risk of progression to severe COVID-19: [x] Age over 65 years [] Cancer [] Chronic kidney disease [] Chronic liver disease [] Chronic lung diseases, including cystic fibrosis [] Dementia or other neurological conditions [] Diabetes (type 1 or type 2) [] Disabilities, including Down syndrome and neurodevelopmental disorders [x] Heart conditions [] HIV infection [x] Immunocompromised state [] Mental health conditions [] Medical related technological dependence (tracheostomy, gastrostomy, or positive pressure ventilation (not related to COVID) [] Overweight and obesity (BMI greater or equal to 25 for adults) [] Physical inactivity [] Sickle cell disease or thalassemia [] Smoking, current or former [] Solid organ or blood stem cell transplant [] Stroke or cerebrovascular disease [] Substance use disorders [] Tuberculosis [] People from racial and ethnic minority groups Criteria above are met: Yes Date of Symptom Onset: 07/20/2022 Patient received COVID vaccine: Yes / status reviewed: Females: [] Patient is not currently and there is no possibility the patient could be (select one of the following): [] test does not need to be confirmed in patients who have undergone permanent sterilization, are currently using an intrauterine system or contraceptive implant, or in whom is not possible. [] Patients not meeting conditions above: assess whether the patient is based on the first day of the last menstrual period in individuals who have regular menstrual cycles, is using reliable method of contraception correctly and consistently or have had a negative test [] A test is recommended if the individual has irregular menstrual cycles, is unsure of the first day of the last menstrual period or is not using effective contraception correctly and consistently [] Patient is not currently . is not recommended during treatment and for four days after final dose of molnupiravir. [] Females have been advised to use a reliable method of contraception correctly and consistently for the duration of treatment and for four days after the last dose of molnupiravir Males: [x] Sexually active male with partner(s) of childbearing potential has been advised to use a reliable method of contraception correctly and consistently for intercourse for the duration of treatment and for three months after the last dose of molnupiravir I have discussed the use of the investigational therapeutic, molnupiravir, for the treatment of mild to moderate COVID-19 and its use under Emergency Use Authorization with the patient. The patient was informed that molnupiravir is not an FDA approved drug and that it is authorized for use under this Emergency Use Authorization. The patient was also informed of the significant known benefits and potential risks of molnupiravir, and the extent to which such potential risks and benefits are unknown. The patient was informed that there is mandatory reporting of all medication errors and serious adverse events potentially related to molnupiravir treatment within 7 calendar days from the onset of the event and that events up to 28 days after completion of therapy need to be reported. The discussion included alternatives to receiving molnupiravir, including clinical trials, and potential the risks and benefits of those alternatives. The patient was provided electronically with the Fact Sheet for Patients, Parents and Caregivers . The patient was also instructed that in addition to the treatment with molnupiravir, he/she should continue to self-isolate and use infection control measures (e.g., wear mask, isolate, social distance, avoid sharing personal items, clean and disinfect high touch surfaces, and frequent handwashing) according to CDC guidelines. The patient stated understanding and gave verbal consent to proceeding with molnupiravir treatment. Jana Slater APRN.CNP July 23, 2022 11:18 AM documented in this encounter [facility] 07-23-2022 Miscellaneous Notes Patient given results and verbalized understanding of instructions given. Mine Canales *Patient is a candidate for treatment with antiviral medication for covid. Options: online express care, call pcp, return to express care. Please notify patient tested positive for Covid 19 Follow the CDC guidelines for isolation: 1. Everyone, regardless of vaccination status, should stay home for 5 days. 2. If you have no symptoms or your symptoms are resolving after 5 days, you can leave your house. 3. Continue to wear a mask around others for 5 additional days. If you have a fever, continue to stay home until your fever resolves, even if it is longer than 5 days. Please monitor your symptoms, and for any worrisome symptoms, call your primary care provider or schedule a visit with Express Care Online. A test is not recommended to return to work/school when meeting the above criteria. documented in this encounter [facility] 07-22-2022 Note HNO ID: [id number] Author: Francesca Vasquez APRN.AKILAH Service: ? Author Type: Nurse Practitioner Type: Progress Notes Filed: 07/22/2022 3:06 PM Note Text: Subjective Nasal Congestion Associated symptoms include congestion and coughing. Pertinent negatives include no chills, ear pain or shortness of breath. Merrick Muñoz is a 82 year old male who presents with 3 days of runny nose, sore throat, fatigue, low grade fever at home. He has been gargling with salt water for his sore throat. He states his temp was over 100 at home but they had a hard time reading the thermometer. He also took an OTC pill but he does not know what it was. He denies any known sick contacts. His is with him and states he has had some urinary incontinence. States this is chronic for him but it seems more frequent than normal. Review of Systems Constitutional: Positive for fever. Negative for chills. HENT: Positive for congestion. Negative for ear pain. Respiratory: Positive for cough. Negative for shortness of breath and wheezing. Cardiovascular: Negative for chest pain. Gastrointestinal: Negative for abdominal pain, diarrhea and nausea. Genitourinary: Positive for frequency. Negative for dysuria and hematuria. BP 120/68 Pulse 72 Temp 37.6 ?C (99.6 ?F) Resp 16 Wt 100.2 kg (221 lb) SpO2 97% BMI 31.71 kg/m? 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 MEDICATIONS phenytoin ER (DILANTIN) 100 mg ER capsule Take 2 capsules by mouth once daily. phenytoin ER (DILANTIN) 30 mg ER capsule Take 2 capsules by mouth once daily. memantine (NAMENDA) 5 mg tablet Take 1 tablet by mouth once daily. hydroxyurea (HYDREA) 500 mg capsule Take 2 capsules by mouth once daily. lisinopril-hydroCHLOROthiazide (PRINZIDE, ZESTORETIC) 20-25 mg per tablet Take 1 tablet by mouth once daily. tamsulosin (FLOMAX) 0.4 mg Take 1 capsule by mouth once daily at bedtime lisinopril (ZESTRIL, PRINIVIL) 5 mg tablet DAILY levothyroxine (SYNTHROID) 137 mcg tablet Take 1 tablet by mouth once daily. Take on empty stomach. For thyroid. ergocalciferol 50,000 unit capsule (VITAMIN D2, DRISDOL) Take 1 capsule by mouth one time a week. CPAP 1 Units as directed. Please provide AutoCPAP 7-10 cm H2O, lifetime supplies - including mask (nasal pillow masks or patient preference), heated humidity, heated tubing, filters. Please provide 30 day download to [phone]. DME: [place] [phone] Diagnosis: G47.33 CPAP Auto titrating PAP device with humidification set at a range of 7-12 cmH2O. PAP download in 4 weeks. A medium ResMed AirFit N20 nasal mask. Life time supplies. cyanocobalamin (VITAMIN B-12) 500 mcg tablet Take 1 tablet by mouth once daily. aspirin, enteric coated (ASPIRIN, ENTERIC COATED) 81 mg EC tablet Take 81 mg by mouth once daily. levoFLOXacin (LEVAQUIN) 750 mg tablet DAILY (Patient not taking: Reported on 12/10/2021) cephALEXin (KEFLEX) 500 mg capsule TAKE 1 CAPSULE BY MOUTH THREE TIMES DAILY WITH FOOD FOR 5 DAYS (Patient not taking: Reported on 12/10/2021) FAMILY HISTORY Problem Relation Age of Onset GI Mother Hypertension Mother other (migraine) Mother Alzheimer's Disease Father Cancer Father Kidney Disease Sister Arthritis Brother Cancer Brother Social History Tobacco Use Smoking status: Former Types: Pipe Quit date: 03/24/1972 Years since quittin.3 Smokeless tobacco: Never Tobacco comments: Pt stated he only smoked for a short time Substance Use Topics Alcohol use: No Drug use: No Objective Physical Exam Vitals and nursing note reviewed. HENT: Nose: Congestion and rhinorrhea present. Mouth/Throat: Mouth: Mucous membranes are moist. Pharynx: Uvula midline. No oropharyngeal exudate or posterior oropharyngeal erythema (slight). Cardiovascular: Rate and Rhythm: Normal rate and regular rhythm. Heart sounds: Normal heart sounds. Pulmonary: Effort: Pulmonary effort is normal. No respiratory distress. Breath sounds: Normal breath sounds. No wheezing or rales. Musculoskeletal: Cervical back: Neck supple. Lymphadenopathy: Cervical: No cervical adenopathy. Skin: General: Skin is warm and dry. Findings: No erythema or rash. Neurological: Mental Status: He is alert. ASSESSMEN (more content not included)... [facility] 07-22-2022 Instructions Francesca Vasquez APRN.[facility] - 07/22/2022 3:06 PM EDT ASSESSMENT/PLAN: 1. Sore throat - ICD9: 462, ICD10: J02.9 (primary diagnosis) - suspect viral - Alere Strep Test negative, no culture pending - Discussed supportive care treatment with fluids, rest and analgesia. - STREP A MOLECULAR (POC) 2. Viral URI with cough - ICD9: 465.9, ICD10: J06.9 - Discussed viral etiology and rationale for treatment. - Symptomatic treatment with prn analgesia - Supportive care with fluids and rest - COVID WITH FLUA+B, ROUTINE 3. Urinary incontinence, unspecified type - ICD9: 788.30, ICD10: R32 - UA DIP, URINE (POC)- positive for trace ketones and protein. - increase fluid intake - Follow-up with your PCP in 3-5 days if symptoms have not improved or sooner if symptoms worsen - Discussed red flags and need for immediate medical evaluation if any occur. - Discussed supportive care treatment with fluids, rest and analgesia. - Discussed expected course of illness Francesca Vasquez APRN.CENTER DIRECTOR LEAD TEACHER Treatment for Viral Upper Respiratory Tract Infections Your body will kill off the virus by itself. Additionally, you can prime your body's immune system. This may help you get better more quickly. Drink lots of fluids Make sure you are eating well Get plenty of rest We do not have any medications that kill off these viruses. Antibiotics are used to treat bacterial infections; however, they are not active against viral infections. There are some things that might help you feel better, though. Vaporizers, humidifiers, hot showers, and hot fluids help open respiratory and sinus passages [place] may offer relief of nasal and head congestion Kameron's Vapor Rub may relieve congestion Tylenol and Advil help control fevers and headaches Salt water gargles help relieve sore throats Chloraceptic spray or throat lozenges may also help relieve sore throat symptoms Occasionally, viral infections turn into something more serious. You should see your doctor or return to the Urgent Care if: You have fevers for longer than five days You have fevers above 102 degrees You are still sick after 10 days You have shortness of breath or wheezing After several days you are getting worse rather than better documented in this encounter [facility] 07-22-2022 History of Present illness Narrative Subjective Nasal Congestion Associated symptoms include congestion and coughing. Pertinent negatives include no chills, ear pain or shortness of breath. Merrick Muñoz is a 82 year old male who presents with 3 days of runny nose, sore throat, fatigue, low grade fever at home. He has been gargling with salt water for his sore throat. He states his temp was over 100 at home but they had a hard time reading the thermometer. He also took an OTC pill but he does not know what it was. He denies any known sick contacts. His is with him and states he has had some urinary incontinence. States this is chronic for him but it seems more frequent than normal. Review of Systems Constitutional: Positive for fever. Negative for chills. HENT: Positive for congestion. Negative for ear pain. Respiratory: Positive for cough. Negative for shortness of breath and wheezing. Cardiovascular: Negative for chest pain. Gastrointestinal: Negative for abdominal pain, diarrhea and nausea. Genitourinary: Positive for frequency. Negative for dysuria and hematuria. 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 MEDICATIONS phenytoin ER (DILANTIN) 100 mg ER capsule Take 2 capsules by mouth once daily. phenytoin ER (DILANTIN) 30 mg ER capsule Take 2 capsules by mouth once daily. memantine (NAMENDA) 5 mg tablet Take 1 tablet by mouth once daily. hydroxyurea (HYDREA) 500 mg capsule Take 2 capsules by mouth once daily. lisinopril-hydroCHLOROthiazide (PRINZIDE, ZESTORETIC) 20-25 mg per tablet Take 1 tablet by mouth once daily. tamsulosin (FLOMAX) 0.4 mg Take 1 capsule by mouth once daily at bedtime lisinopril (ZESTRIL, PRINIVIL) 5 mg tablet DAILY levothyroxine (SYNTHROID) 137 mcg tablet Take 1 tablet by mouth once daily. Take on empty stomach. For thyroid. ergocalciferol 50,000 unit capsule (VITAMIN D2, DRISDOL) Take 1 capsule by mouth one time a week. CPAP 1 Units as directed. Please provide AutoCPAP 7-10 cm H2O, lifetime supplies - including mask (nasal pillow masks or patient preference), heated humidity, heated tubing, filters. Please provide 30 day download to [phone]. [phone] Diagnosis: G47.33 CPAP Auto titrating PAP device with humidification set at a range of 7-12 cmH2O. PAP download in 4 weeks. A medium ResMed AirFit N20 nasal mask. Life time supplies. cyanocobalamin (VITAMIN B-12) 500 mcg tablet Take 1 tablet by mouth once daily. aspirin, enteric coated (ASPIRIN, ENTERIC COATED) 81 mg EC tablet Take 81 mg by mouth once daily. levoFLOXacin (LEVAQUIN) 750 mg tablet DAILY (Patient not taking: Reported on 12/10/2021) cephALEXin (KEFLEX) 500 mg capsule TAKE 1 CAPSULE BY MOUTH THREE TIMES DAILY WITH FOOD FOR 5 DAYS (Patient not taking: Reported on 12/10/2021) FAMILY HISTORY Problem Relation Age of Onset GI Mother Hypertension Mother other (migraine) Mother Alzheimer's Disease Father Cancer Father Kidney Disease Sister Arthritis Brother Cancer Brother Social History Tobacco Use Smoking status: Former Types: Pipe Quit date: 03/24/1972 Years since quittin.3 Smokeless tobacco: Never Tobacco comments: Pt stated he only smoked for a short time Substance Use Topics Alcohol use: No Drug use: No Objective Physical Exam Vitals and nursing note reviewed. HENT: Nose: Congestion and rhinorrhea present. Mouth/Throat: Mouth: Mucous membranes are moist. Pharynx: Uvula midline. No oropharyngeal exudate or posterior oropharyngeal erythema (slight). Cardiovascular: Rate and Rhythm: Normal rate and regular rhythm. Heart sounds: Normal heart sounds. Pulmonary: Effort: Pulmonary effort is normal. No respiratory distress. Breath sounds: Normal breath sounds. No wheezing or rales. Musculoskeletal: Cervical back: Neck supple. Lymphadenopathy: Cervical: No cervical adenopathy. Skin: General: Skin is warm and dry. Findings: No erythema or rash. Neurological: Mental Status: He is alert. ASSESSMENT/PLAN: 1. Sore throat - ICD9: 462, ICD10: J02.9 (primary diagnosis) - suspect viral - Alere Strep Test negative, no culture pending - Discussed supportive care treatment with fluids, rest and analgesia. - STREP A MOLECULAR (POC) 2. Viral URI with cough - ICD9: 465.9, ICD10: J06.9 - Discussed viral etiology and rationale for treatment. - Symptomatic treatment with prn analgesia - Supportive care with fluids and rest - COVID WITH FLUA+B, ROUTINE 3. Urinary incontinence, unspecified type - ICD9: 788.30, ICD10: R32 - UA DIP, URINE (POC)- positive for trace ketones and protein. - increase fluid intake - Follow-up with your PCP in 3-5 days if symptoms have not improved or sooner if symptoms worsen - Discussed red flags and need for immediate medical evaluation if any occur. - Discussed supportive care treatment with fluids, rest and analgesia. - Discussed expected course of illness Francesca Vasquez APRN.CENTER DIRECTOR LEAD TEACHER documented in this encounter [facility] 07-04-2022 Miscellaneous Notes Cpap order sent to [facility] [place] via fax [phone]. Mikey Painting LPN Addended by: ANT HORTA on: 07/04/2022 12:49 PM Modules accepted: Orders TC to patient, Patient is ok with increasing settings, please place order. Mikey Painting LPN Pt doing well from standpoint of compliance since receiving device. However, AHI is elevated at 6.9 and thus would recommend increasing pressure range from 7-10 cmH2O to 7-14 cmH2O. If patient willing to do so, please let me know and will send Rx to [facility]. Thank you, Ant Horta MD Download received from [facility] via fax, scanned into patients chart. Mikey Painting LPN TC to [employer] requesting download to be faxed. Awaiting fax at this time. Mikey Painting LPN Please obtain download. Patient phoned to report to Dr. Horta, he contacted [facility] regarding doctor unable to read the recordings of his CPAP. Patient reports the recording is working now and Dr. Horta should be able to get report on CPAP. Asking doctor to please review and advise. documented in this encounter [facility] 05-31-2022 Note HNO ID: [id number] Author: Ant Horta Jr., MD Service: ? Author Type: Physician Type: Progress Notes Filed: 05/31/2022 5:37 PM Note Text: ESTABLISHED PATIENT VISIT CHIEF COMPLAINT: Follow up HISTORY OF PRESENT ILLNESS: Merrick Muñoz is a 81 year old male, BMI 31.71 kg/m2 with a PMH significant for and per last office visit note of 12/10/21: 1. Nonintractable epilepsy without status epilepticus, unspecified epilepsy type (HCC) - ICD9: 345.90, ICD10: G40.909 (primary diagnosis) Patient without seizure activity in years. Limited history regarding seizures as those medical records not available for review.In past year Dilantin level decreased from 300mg daily to 260mg daily due to elevated free levels and possible side effects. Pt not pleased with cose of current meds. Given the free level still appears over 2.0 since last checked and uncertainty of seizure history will further lower dose to 230mg daily and check levels after 3 weeks. If Dilantin level still elevated will try to lower dose to 200mg daily. Pt agrees with plan. 2. Cognitive impairment - ICD9: 294.9, ICD10: R41.89 Subjectively stable. Will continue Namenda 5mg daily. Encouraged brain exercises. Will attempt full MOCA next visit. 3. BARTOLO (obstructive sleep apnea) - ICD9: 327.23, ICD10: G47.33 AHI remains mildly elevated. Possibly due to patient sleeping supine. Pt not wanting another sleep study. Will continue to monitor with no change in pressure setting today. Patient reports no seizures since last visit (including no auras). Patient states he felt lightheaded on the lower dose of Dilantin and thus increased back to 260 mg daily. Patient states he does forget things now and then and it does bother him. However states not sure if better or worse. Occasionally forgets a task he needs to do or someone's name. No issues driving; not getting lost. Orientation: 05/31/2022 Serial 7s: [id number]... Similarities of 2 objects: watch-ruler, cao-rifle - both intact. Cube drawing: intact Clock drawing: intact Delayed recall: 4/5 Pt reports no issues with PAP. Cleaning nightly. No pressure or mask issues. Did get new mask recently. Feels refreshed in the AM. Does wake in the AM needing to urinate. His machine is no longer transmitting data - requesting pt to take SD card to [facility] [place] [place]. REVIEW OF SYSTEMS GENERAL:No weight loss, malaise or fevers. HEENT:Negative for frequent or significant headaches, No changes in hearing or vision, no nose bleeds or other nasal problems RESPIRATORY: Negative for cough, wheezing or shortness of breath. CARDIOVASCULAR: Negative for chest pain, leg swelling or palpitations. GASTROINTESTINAL: Negative for abdominal discomfort, blood in stools or black stools or change in bowel habits GENITOURINARY: No history of dysuria, frequency or incontinence MUSCULOSKELETAL: Negative for joint pain or swelling, back pain or muscle pain. NEUROLOGIC:Negative for focal numbness or weakness, headaches and dizziness or syncope, vision changes, speech/languag changes - EXCEPT that as per HPI above. SKIN:Negative for lesions, rash, and itching. HEMATOLOGIC/LYMPHATIC/IMMUNOLOGIC: Negative for prolonged bleeding, bruising easily or swollen nodes. ENDOCRINE: Negative for cold or heat intolerance, polyuria, polydipsia and goiter. The remainder of the ROS was reviewed and is negative. LAB/IMAGING: Those performed since patient's last visit have been reviewed. WBC (k/uL) Date Value 09/21/2021 6.40 RBC (m/uL) Date Value 09/21/2021 3.61 (L) Hemoglobin (g/dL) Date Value 09/21/2021 14.5 Hematocrit (%) Date Value 09/21/2021 44.0 MCV (fL) Date Value 09/21/2021 121.9 (H) MCH (pg) Date Value 09/21/2021 40.2 (H) MCHC (g/dL) Date Value 09/21/2021 33.0 RDW-CV (%) Date Value 09/21/2021 14.1 Platelet Count (k/uL) Date Value 09/21/2021 663 (H) MPV (fL) Date Value 09/21/2021 8.4 (L) Glucose (mg/dL) Date Value 09/21/2021 100 (H) BUN (mg/dL) Date Value 09/21/2021 28 (H) Creatinine (mg/dL) Date Value 09/21/2021 1.27 (H) Sodium (mmol/L) Date Value 09/21/2021 139 Potassium (mmol/L) Date Value 09/21/2021 4.8 Chloride (mmol/L) Date Value 09/21/2021 104 CO2 (mmol/L) Date Value 09/21/2021 23 Protein, Total (g/dL) Date Value 09/21/2021 6.7 Albumin (g/dL) Date Value 09/21/2021 4.4 Calcium, Total (mg/dL) Date Value 09/21/2021 9.4 Alkaline Phosphatase (U/L) Date Value 09/21/2021 59 Bilirubin, Total (mg/dL) Date Value 09/21/2021 0.4 AST (U/L) Date Value 09/21/2021 19 ALT (U/L) Date Value 09/21/2021 15 MEDICATIONS: phenytoin ER (DILANTIN) 100 mg ER capsule Take 2 capsules by mouth once daily. hydroxyurea (HYDREA) 500 mg capsule Take 2 capsules by mouth once daily. phenytoin ER (DILANTIN) 30 mg ER capsule Take 2 capsules by mouth once daily. lisinopril-hydroCHLOROthiazide (PRINZIDE, ZESTORETIC (more content not included)... [facility] 05-31-2022 History of Present illness Narrative ESTABLISHED PATIENT VISIT CHIEF COMPLAINT: Follow up HISTORY OF PRESENT ILLNESS: Merrick Mñuoz is a 81 year old male, BMI 31.71 kg/m2 with a PMH significant for and per last office visit note of 12/10/21: 1. Nonintractable epilepsy without status epilepticus, unspecified epilepsy type (HCC) - ICD9: 345.90, ICD10: G40.909 (primary diagnosis) Patient without seizure activity in years. Limited history regarding seizures as those medical records not available for review.In past year Dilantin level decreased from 300mg daily to 260mg daily due to elevated free levels and possible side effects. Pt not pleased with cose of current meds. Given the free level still appears over 2.0 since last checked and uncertainty of seizure history will further lower dose to 230mg daily and check levels after 3 weeks. If Dilantin level still elevated will try to lower dose to 200mg daily. Pt agrees with plan. 2. Cognitive impairment - ICD9: 294.9, ICD10: R41.89 Subjectively stable. Will continue Namenda 5mg daily. Encouraged brain exercises. Will attempt full MOCA next visit. 3. BARTOLO (obstructive sleep apnea) - ICD9: 327.23, ICD10: G47.33 AHI remains mildly elevated. Possibly due to patient sleeping supine. Pt not wanting another sleep study. Will continue to monitor with no change in pressure setting today. Patient reports no seizures since last visit (including no auras). Patient states he felt lightheaded on the lower dose of Dilantin and thus increased back to 260 mg daily. Patient states he does forget things now and then and it does bother him. However states not sure if better or worse. Occasionally forgets a task he needs to do or someone's name. No issues driving; not getting lost. Orientation: 05/31/2022 Serial 7s: [id number]... Similarities of 2 objects: watch-ruler, cao-rifle - both intact. Cube drawing: intact Clock drawing: intact Delayed recall: 06/26 Pt reports no issues with PAP. Cleaning nightly. No pressure or mask issues. Did get new mask recently. Feels refreshed in the AM. Does wake in the AM needing to urinate. His machine is no longer transmitting data - requesting pt to take SD card to DME. REVIEW OF SYSTEMS GENERAL:No weight loss, malaise or fevers. HEENT:Negative for frequent or significant headaches, No changes in hearing or vision, no nose bleeds or other nasal problems RESPIRATORY: Negative for cough, wheezing or shortness of breath. CARDIOVASCULAR: Negative for chest pain, leg swelling or palpitations. GASTROINTESTINAL: Negative for abdominal discomfort, blood in stools or black stools or change in bowel habits GENITOURINARY: No history of dysuria, frequency or incontinence MUSCULOSKELETAL: Negative for joint pain or swelling, back pain or muscle pain. NEUROLOGIC:Negative for focal numbness or weakness, headaches and dizziness or syncope, vision changes, speech/languag changes - EXCEPT that as per HPI above. SKIN:Negative for lesions, rash, and itching. HEMATOLOGIC/LYMPHATIC/IMMUNOLOGIC: Negative for prolonged bleeding, bruising easily or swollen nodes. ENDOCRINE: Negative for cold or heat intolerance, polyuria, polydipsia and goiter. The remainder of the ROS was reviewed and is negative. LAB/IMAGING: Those performed since patient's last visit have been reviewed. WBC (k/uL) Date Value 09/21/2021 6.40 RBC (m/uL) Date Value 09/21/2021 3.61 (L) Hemoglobin (g/dL) Date Value 09/21/2021 14.5 Hematocrit (%) Date Value 09/21/2021 44.0 MCV (fL) Date Value 09/21/2021 121.9 (H) MCH (pg) Date Value 09/21/2021 40.2 (H) MCHC (g/dL) Date Value 09/21/2021 33.0 RDW-CV (%) Date Value 09/21/2021 14.1 Platelet Count (k/uL) Date Value 09/21/2021 663 (H) MPV (fL) Date Value 09/21/2021 8.4 (L) Glucose (mg/dL) Date Value 09/21/2021 100 (H) BUN (mg/dL) Date Value 09/21/2021 28 (H) Creatinine (mg/dL) Date Value 09/21/2021 1.27 (H) Sodium (mmol/L) Date Value 09/21/2021 139 Potassium (mmol/L) Date Value 09/21/2021 4.8 Chloride (mmol/L) Date Value 09/21/2021 104 CO2 (mmol/L) Date Value 09/21/2021 23 Protein, Total (g/dL) Date Value 09/21/2021 6.7 Albumin (g/dL) Date Value 09/21/2021 4.4 Calcium, Total (mg/dL) Date Value 09/21/2021 9.4 Alkaline Phosphatase (U/L) Date Value 09/21/2021 59 Bilirubin, Total (mg/dL) Date Value 09/21/2021 0.4 AST (U/L) Date Value 09/21/2021 19 ALT (U/L) Date Value 09/21/2021 15 MEDICATIONS: phenytoin ER (DILANTIN) 100 mg ER capsule Take 2 capsules by mouth once daily. hydroxyurea (HYDREA) 500 mg capsule Take 2 capsules by mouth once daily. phenytoin ER (DILANTIN) 30 mg ER capsule Take 2 capsules by mouth once daily. lisinopril-hydroCHLOROthiazide (PRINZIDE, ZESTORETIC) 20-25 mg per tablet Take 1 tablet by mouth once daily. tamsulosin (FLOMAX) 0.4 mg Take 1 capsule by mouth once daily at bedtime memantine (NAMENDA) 5 mg tablet Take 1 tablet by mouth once daily. lisinopril (ZESTRIL, PRINIVIL) 5 mg tablet DAILY levothyroxine (SYNTHROID) 137 mcg tablet Take 1 tablet by mouth once daily. Take on empty stomach. For thyroid. ergocalciferol 50,000 unit capsule (VITAMIN D2, DRISDOL) Take 1 capsule by mouth one time a week. CPAP 1 Units as directed. Please provide AutoCPAP 7-10 cm H2O, lifetime supplies - including mask (nasal pillow masks or patient preference), heated humidity, heated tubing, filters. Please provide 30 day download to [phone]. DME: [facility] [place] [phone] Diagnosis: G47.33 CPAP Auto titrating PAP device with humidification set at a range of 7-12 cmH2O. PAP download in 4 weeks. A medium ResMed AirFit N20 nasal mask. Life time supplies. cyanocobalamin (VITAMIN B-12) 500 mcg tablet Take 1 tablet by mouth once daily. aspirin, enteric coated (ASPIRIN, ENTERIC COATED) 81 mg EC tablet Take 81 mg by mouth once daily. 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, unspecified site Hypothyroidism Inguinal hernia without mention of obstruction or gangrene, unilateral or unspecified, (not specified as recurrent) Inguinal hernia Left leg DVT (HCC) 06/11/2012 Migraines Unspecified sleep apnea Urinary calculus, unspecified Renal stones FAMILY HISTORY Problem Relation Age of Onset GI Mother Hypertension Mother other (migraine) Mother Alzheimer's Disease Father Cancer Father Kidney Disease Sister Arthritis Brother Cancer Brother SOCIAL HISTORY Social History Tobacco Use Smoking status: Former Types: Pipe Quit date: 03/24/1972 Years since quittin.2 Smokeless tobacco: Never Tobacco comments: Pt stated he only smoked for a short time Substance Use Topics Alcohol use: No Drug use: No PHYSICAL EXAMINATION BP 163/76 Pulse (!) 55 Temp 36.4 C (97.6 F) Resp 18 Wt 100.2 kg (221 lb) SpO2 99% BMI 31.71 kg/m GENERAL EXAM: General appearance: NAD, pleasant. HEENT: NC/AT, nasal congestion absent, no oral lesions, membranes moist. NECK: No masses, supple. Lungs: CTA bilaterally. CV: RRR nl S1, S2. No carotid bruits. Extr: No cyanosis, clubbing or edema. Extremity pulses palpable and normal. Skin: Cool to touch. NEUROLOGICAL EXAM: General: Awake, alert, oriented x3 (person,place,time), speech fluent, no dysarthria; comprehension, naming, repetition intact. Fund of knowledge grossly normal by MOCA. CN: PERRL, EOMI and without nystagmus, VFF to confrontation, facial sensation and strength are normal and symmetric, hearing is intact to finger rub bilaterally, palate and tongue movements are intact and symmetric. SCM and trapezius strength normal. Motor: Normal tone, bulk and strength (5/5) bilaterally (throughout extremities x4). Coordination: FNF, MARY KAY, HTS intact. No tremors. Sensation: Light touch intact throughout. No evidence of neglect. Gait: Stable with normal stride and arm swing. Assessment and Plan: ASSESSMENT/PLAN: 1. Seizure disorder (HCC) - ICD9: 345.90, ICD10: G40.909 (primary diagnosis) Stable per subjective history. Continues to tolerate dilantin, and given now symptoms as above when trying to lower dosing, would not change AED at this time. 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 However, goal of checking dilantin is to monitor for supratherapeutic levels. Will treat clinically picture and not just labs. 2. BARTOLO on CPAP - ICD9: 327.23, V46.8, ICD10: G47.33, Z99.89 Subjectively doing well. Objectively no data available for review. Encouraged compliance. Reminded pt to clean and replace equipment regularly. Advised pt not to drive or operate heavy machinery if sleepy. Requested that pt take SD card to [facility] for download. 3. Cognitive impairment - ICD9: 294.9, ICD10: R41.89 Stable MOCA. At this time will not increase Namenda dose with pt not endorsing a decline in function. 4. Elevated blood pressure reading - ICD9: 796.2, ICD10: R03.0 - Encouraged dietary sodium restriction/DASH diet - Recommend home blood pressure monitoring, to bring results in on next visit - Follow up with PCP. - Goal of BP <130/80 Ant Horta MD I spent a total of 30+ minutes on the date of the service which included preparing to see the patient, [id number] patient care, completing clinical documentation, obtaining and/or reviewing separately obtained history, performing a medically appropriate examination, counseling and educating the patient/family/caregiver, ordering medications, tests, or procedures, communicating with other HCPs (not separately reported), and communicating results to the patient/family/caregiver. documented in this encounter [facility] 05-16-2022 Miscellaneous Notes The following approved medication requests have been transmitted electronically. Requested Prescriptions Pending Prescriptions Disp Refills phenytoin ER (DILANTIN) 100 mg ER capsule 180 capsule 0 Sig: Take 2 capsules by mouth once daily. Quinton Hubbard APRN.AKILAH Patient has been identified by name and date of : Yes Requested Prescriptions Pending Prescriptions Disp Refills phenytoin ER (DILANTIN) 100 mg ER capsule 180 capsule 0 Sig: Take 2 capsules by mouth once daily. JACY-10/30/21 Labs-02/08/22 NOV-none med filled 02/10/22 RX INSTRUCTIONS: Patient aware RX will be sent to pharmacy. No need to notify patient. Maude Vergara documented in this encounter [facility] 03-26-2022 Miscellaneous Notes OK to refill as ordered Analisa Daigle MD Patient has been identified by name and date of : Yes Requested Prescriptions Pending Prescriptions Disp Refills hydroxyurea (HYDREA) 500 mg capsule 90 capsule 1 Sig: Take 2 capsules by mouth once daily. Signed Prescriptions Disp Refills hydroxyurea (HYDREA) 500 mg capsule 60 capsule 5 Sig: Take 2 capsules by mouth once daily. Authorizing Provider: ANALISA DAIGLE RX INSTRUCTIONS: Patient called he wants 90 days sent to [facility] today and does not want to use the mail order. Please send as soon as possible. Patient aware RX will be sent to pharmacy. Please call once sent to [facility] today. Annabel Gardner Pss OK to refill as ordered Analisa Daigle MD Patient has been identified by name and date of : Yes Last office visit in this department: 09/27/2021 Labs-02/08/22 NOV-none med filled 11/30/21 RX INSTRUCTIONS: Patient aware RX will be sent to pharmacy. No need to notify patient. Patient phones requesting refills as follows: Requested Prescriptions Pending Prescriptions Disp Refills hydroxyurea (HYDREA) 500 mg capsule 60 capsule 0 Sig: Take 2 capsules by mouth once daily. Please review and advise. Fela Henning documented in this encounter [facility] 03-23-2022 Miscellaneous Notes Patient calling regarding medication refill request for Hydrea. Conferenced to Fela in Dr. Daigle's office at phone number ([phone]) for assistance. Bhavna Hutton LPN documented in this encounter [facility] 03-12-2022 Note HNO ID: [id number] Author: nAt Horta Jr., MD Service: ? Author Type: Physician Type: Progress Notes Filed: 03/12/2022 10:42 AM Note Text: Made aware of pt's need for refills for PHT 30mg tabs. Unfortunately, prior message was not received. Rx sent immediately to [facility] once made aware. Ant Horta MD [facility] 03-12-2022 Miscellaneous Notes TC to patient to make aware that provider sent script to [facility]. No further questions at this time. ELYSE Govea Patient showed up at [facility] office upset that his refill has not been sent to pharmacy and he is now out of medication. Pt wanting to speak directly to Dr. Horta. This staff spoke with patient and informed that Dr. Horta was at another location today. Explained that a message was sent to him yesterday high priority requesting a new script be written as refills at pharmacy are . Patient again verbalized frustration stating I don't get what the big deal is to refill it . Explained to patient that provider gets multiple refill requests each day and may take up to three days to respond to requests. Patient states he called in two weeks ago with this request. This staff explained the encounter we have for a refill was started on 03/08 which was 4 days ago. Patient continued to be frustrated, this staff explained a message would be sent to the provider and that he would receive a phone call when script was sent. ELYSE Govea The prescription of Dilantin at [facility] has . Patient is needing another prescription escripted to have filled. Marissa De Dios LPN Per records appears that patient in fact has refills available at the pharmacy. Please confirm. Ok with him going back to prior dose as he is doing. Ant Horta MD Assessment and Plan: Copied and pasted from OV on 12/10/1942 ASSESSMENT/PLAN: 1. Nonintractable epilepsy without status epilepticus, unspecified epilepsy type (HCC) - ICD9: 345.90, ICD10: G40.909 (primary diagnosis) Patient without seizure activity in years. Limited history regarding seizures as those medical records not available for review.In past year Dilantin level decreased from 300mg daily to 260mg daily due to elevated free levels and possible side effects. Pt not pleased with cose of current meds. Given the free level still appears over 2.0 since last checked and uncertainty of seizure history will further lower dose to 230mg daily and check levels after 3 weeks. If Dilantin level still elevated will try to lower dose to 200mg daily. Pt agrees with plan. 2. Cognitive impairment - ICD9: 294.9, ICD10: R41.89 Subjectively stable. Will continue Namenda 5mg daily. Encouraged brain exercises. Will attempt full MOCA next visit. 3. BARTOLO (obstructive sleep apnea) - ICD9: 327.23, ICD10: G47.33 AHI remains mildly elevated. Possibly due to patient sleeping supine. Pt not wanting another sleep study. Will continue to monitor with no change in pressure setting today. Ant Horta MD Patient reports there is not a Rx at the pharmacy for dilantin 30 mg (noted takes a 100 mg tab and a 30 mg tab) Will need new Rx. Pended. Last ov with Dr Horta: 12-10-21. Patient called to request refill of Dilantin but should have valid prescription at pharmacy. Patient asks to let Dr. Horta know that patient did a 4-5 day trial of Dilantin 1 capsule daily and patient became light-headed so he resumed the 2 capsules daily and has not been light-headed since. Patient reports that he did this based on the discussion of medication cost but he would rather pay the cost than feel light-headed. Noreen Mariscal RN documented in this encounter [facility] 12-14-2021 Miscellaneous Notes Pharmacy faxed requesting the following refill. Requested Prescriptions Pending Prescriptions Disp Refills tamsulosin (FLOMAX) 0.4 mg [Pharmacy Med Name: Tamsulosin HCl 0.4 MG Oral Capsule] 90 capsule 3 Sig: Take 1 capsule by mouth once daily at bedtime Patient last appointment: Visit date not found Patient Phone numbers: [phone] (home) Request is for script(s) to be escript to pharmacy. Irma Brandon MA documented in this encounter [facility] 12-10-2021 Instructions Ant Horta Jr., MD - 12/10/2021 3:41 PM EDT DILANTIN: 1) Decrease dose to 230mg at bedtime for 4 weeks. If no seizures, and your levels look good, will then have you lower the dose to 200mg at bedtime. We will call you once the results of your dilantin levels are known and will give you instructions on further med adjustments. Please get the labs drawn the week of. Dec 31, 2021. documented in this encounter [facility] 12-10-2021 History of Present illness Narrative ESTABLISHED PATIENT VISIT CHIEF COMPLAINT: Follow Up HISTORY OF PRESENT ILLNESS: Merrick Muñoz is a 81 year old male, with a PMH significant for and per last office visit of 05/11/21: 1. Dizziness - ICD9: 780.4, ICD10: R42 (primary diagnosis) Patient with dizziness overnight, of uncertain etiology. Possible BPPV by history as worse with movement. Now resolved. Patient with identical symptoms and progression of symptoms per note of 03/2021 as above. He is not wanting imaging. Non-focal neuro exam. Will get labs as follows to determine if metabolic etiology of symptoms. - TSH BLD - T4 FREE/FREE THYROX - VITAMIN B12 BLOOD - COMP METABOLIC PANEL - CBC + DIFF Note, no new medications and not orthostatic on exam. 2. Cognitive impairment - ICD9: 294.9, ICD10: R41.89 MOCA stable. Unclear if neurodegenerative vs other (possibly pseudodementia) with patient not completing full workup including lack of neurocognitive testing. With stable exam findings and no new complaints on history will continue Namenda 5mg daily. Encouraged brain exercises. 3. BARTOLO (obstructive sleep apnea) - ICD9: 327.23, ICD10: G47.33 AHI near normalized with patient tolerating PAP and having no new complaints. Will not make any adjustments to settings at this time as already has a range set that would allow for higher pressures if needed. Encouraged pt to try to sleep in the off-supine position. 4. Nonintractable epilepsy without status epilepticus, unspecified epilepsy type (HCC) - ICD9: 345.90, ICD10: G40.909 Limited history. No seizures since last visit. Uncertain if needing Phenytoin from available history, but will continue as pt states worried to make any adjustments. Will check labs as follows: - COMP METABOLIC PANEL - CBC + DIFF - PHENYTOIN/DILANTIN - PHENYTOIN FREE BLD PAP data download for past 30 days shows use all but one night for avg of 8 hours and 5 minutes. AHI was 8.7. <90% pressure is 9.3 cmH2O with pressure range of 7-10 cmH2O. No reports of significant leak. Current PHT dose is 260mg daily. Last free level in 05/11/21 was 1.9. Total on 05/29/21 was 21.1. States that he feels his memory is stable with no decline. has only mentioned that his hearing might be worse -- typically when he forgets to put in hearing aids. No seizures since last visit. States issues with Dilantin. When he was on 300mg states it was economical but now since being on 260mg, states it is costing him well over 100 dollars per fill. Last seizure was 30 years ago. Reports no symptoms to suggest aura or loc. No issues with CPAP device. Denies pressure intolerance. No mask issues. AHI is still mild elevated. Pt typically sleeps on his back (AHI was 16 during HSAT when supine). Sleeps comfortable. No other complaints regarding sleep. Dizziness has resolved. REVIEW OF SYSTEMS GENERAL:No weight loss, malaise or fevers. HEENT:Negative for frequent or significant headaches, No changes in hearing or vision, no nose bleeds or other nasal problems NECK:Negative for lumps, goiter, pain and significant neck swelling RESPIRATORY: Negative for cough, wheezing or shortness of breath. CARDIOVASCULAR: Negative for chest pain, leg swelling or palpitations. GASTROINTESTINAL: Negative for abdominal discomfort, blood in stools or black stools or change in bowel habits GENITOURINARY: No history of dysuria, frequency or incontinence The remainder of the ROS was reviewed and is negative. LAB/IMAGING: Those performed since patient's last visit have been reviewed. WBC (k/uL) Date Value 09/21/2021 6.40 RBC (m/uL) Date Value 09/21/2021 3.61 (L) Hemoglobin (g/dL) Date Value 09/21/2021 14.5 Hematocrit (%) Date Value 09/21/2021 44.0 MCV (fL) Date Value 09/21/2021 121.9 (H) MCH (pg) Date Value 09/21/2021 40.2 (H) MCHC (g/dL) Date Value 09/21/2021 33.0 RDW-CV (%) Date Value 09/21/2021 14.1 Platelet Count (k/uL) Date Value 09/21/2021 663 (H) MPV (fL) Date Value 09/21/2021 8.4 (L) Glucose (mg/dL) Date Value 09/21/2021 100 (H) BUN (mg/dL) Date Value 09/21/2021 28 (H) Creatinine (mg/dL) Date Value 09/21/2021 1.27 (H) Sodium (mmol/L) Date Value 09/21/2021 139 Potassium (mmol/L) Date Value 09/21/2021 4.8 Chloride (mmol/L) Date Value 09/21/2021 104 CO2 (mmol/L) Date Value 09/21/2021 23 Protein, Total (g/dL) Date Value 09/21/2021 6.7 Albumin (g/dL) Date Value 09/21/2021 4.4 Calcium, Total (mg/dL) Date Value 09/21/2021 9.4 Alkaline Phosphatase (U/L) Date Value 09/21/2021 59 Bilirubin, Total (mg/dL) Date Value 09/21/2021 0.4 AST (U/L) Date Value 09/21/2021 19 ALT (U/L) Date Value 09/21/2021 15 MEDICATIONS: phenytoin ER (DILANTIN) 30 mg ER capsule Take 2 capsules by mouth once daily. hydroxyurea (HYDREA) 500 mg capsule Take 2 capsules by mouth once daily. phenytoin ER (DILANTIN) 100 mg ER capsule Take 2 capsules by mouth once daily. memantine (NAMENDA) 5 mg tablet Take 1 tablet by mouth once daily. lisinopril (ZESTRIL, PRINIVIL) 5 mg tablet DAILY levothyroxine (SYNTHROID) 137 mcg tablet Take 1 tablet by mouth once daily. Take on empty stomach. For thyroid. ergocalciferol 50,000 unit capsule (VITAMIN D2, DRISDOL) Take 1 capsule by mouth one time a week. tamsulosin (FLOMAX) 0.4 mg Take 1 capsule by mouth daily at bedtime. CPAP Auto titrating PAP device with humidification set at a range of 7-12 cmH2O. PAP download in 4 weeks. A medium ResMed AirFit N20 nasal mask. Life time supplies. cyanocobalamin (VITAMIN B-12) 500 mcg tablet Take 1 tablet by mouth once daily. aspirin, enteric coated (ASPIRIN, ENTERIC COATED) 81 mg EC tablet Take 81 mg by mouth once daily. levoFLOXacin (LEVAQUIN) 750 mg tablet DAILY (Patient not taking: Reported on 12/10/2021) cephALEXin (KEFLEX) 500 mg capsule TAKE 1 CAPSULE BY MOUTH THREE TIMES DAILY WITH FOOD FOR 5 DAYS (Patient not taking: Reported on 12/10/2021) lisinopril-hydroCHLOROthiazide (PRINZIDE, ZESTORETIC) 20-25 mg per tablet Take 1 tablet by mouth once daily. CPAP 1 Units as directed. Please provide AutoCPAP 7-10 cm H2O, lifetime supplies - including mask (nasal pillow masks or patient preference), heated humidity, heated tubing, filters. Please provide 30 day download to [phone]. 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, unspecified site Hypothyroidism Inguinal hernia without mention of obstruction or gangrene, unilateral or unspecified, (not specified as recurrent) Inguinal hernia Left leg DVT (HCC) 06/11/2012 Migraines Unspecified sleep apnea Urinary calculus, unspecified Renal stones FAMILY HISTORY Problem Relation Age of Onset GI Mother Hypertension Mother other (migraine) Mother Alzheimer's Disease Father Cancer Father Kidney Disease Sister Arthritis Brother Cancer Brother SOCIAL HISTORY Social History Tobacco Use Smoking status: Former Types: Pipe Quit date: 03/24/1972 Years since quittin.7 Smokeless tobacco: Never Tobacco comments: Pt stated he only smoked for a short time Substance Use Topics Alcohol use: No Drug use: No PHYSICAL EXAMINATION Blood pressure 137/69, pulse (!) 50, resp. rate 16, weight 95.3 kg (210 lb), SpO2 98 %. GENERAL EXAM: General appearance: NAD, pleasant. HEENT: NC/AT, nasal congestion absent, no oral lesions, membranes moist. NECK: No masses, supple. Lungs: CTA bilaterally. CV: [place] S1, S2. Extr: No cyanosis, clubbing or edema. NEUROLOGICAL EXAM: General: Awake, alert, oriented x3 (person,place,time), speech fluent, no dysarthria; comprehension, naming, repetition intact. Serial 7s. Able to comment on how 2 objects are similar correctly. CN: PERRL, EOMI and without nystagmus, VFF to confrontation, facial sensation and strength are normal and symmetric, hearing is intact to finger rub bilaterally, palate and tongue movements are intact and symmetric. SCM and trapezius strength normal. Motor: Normal tone, bulk and strength (5/5) bilaterally (throughout extremities x4). Coordination: FNF, MARY KAY, HTS intact. No tremors. Sensation: Light touch intact throughout. No evidence of neglect. Gait: Stable with normal stride and arm swing. Assessment and Plan: ASSESSMENT/PLAN: 1. Nonintractable epilepsy without status epilepticus, unspecified epilepsy type (HCC) - ICD9: 345.90, ICD10: G40.909 (primary diagnosis) Patient without seizure activity in years. Limited history regarding seizures as those medical records not available for review.In past year Dilantin level decreased from 300mg daily to 260mg daily due to elevated free levels and possible side effects. Pt not pleased with cose of current meds. Given the free level still appears over 2.0 since last checked and uncertainty of seizure history will further lower dose to 230mg daily and check levels after 3 weeks. If Dilantin level still elevated will try to lower dose to 200mg daily. Pt agrees with plan. 2. Cognitive impairment - ICD9: 294.9, ICD10: R41.89 Subjectively stable. Will continue Namenda 5mg daily. Encouraged brain exercises. Will attempt full MOCA next visit. 3. BARTOLO (obstructive sleep apnea) - ICD9: 327.23, ICD10: G47.33 AHI remains mildly elevated. Possibly due to patient sleeping supine. Pt not wanting another sleep study. Will continue to monitor with no change in pressure setting today. Ant Horta MD I spent a total of 32 minutes on the date of the service which included preparing to see the patient, [id number] patient care, completing clinical documentation, obtaining and/or reviewing separately obtained history, performing a medically appropriate examination, counseling and educating the patient/family/caregiver, ordering medications, tests, or procedures, independently interpreting results (not separately reported), and communicating results to the patient/family/caregiver. documented in this encounter [facility] 12-06-2021 Miscellaneous Notes RX INSTRUCTIONS: Patient aware RX will be sent to pharmacy. No need to notify patient. Last OV: 05/11/21 with [facility] Last refill: 08/21/21 With 180 and 0 refills Follow up: 12/10/21-6 Month F/U with [facility] Shellie Daniel MA Assessment and Plan: ASSESSMENT/PLAN: 1. Dizziness - ICD9: 780.4, ICD10: R42 (primary diagnosis) Patient with dizziness overnight, of uncertain etiology. Possible BPPV by history as worse with movement. Now resolved. Patient with identical symptoms and progression of symptoms per note of 03/2021 as above. He is not wanting imaging. Non-focal neuro exam. Will get labs as follows to determine if metabolic etiology of symptoms. - TSH BLD - T4 FREE/FREE THYROX - VITAMIN B12 BLOOD - COMP METABOLIC PANEL - CBC + DIFF Note, no new medications and not orthostatic on exam. 2. Cognitive impairment - ICD9: 294.9, ICD10: R41.89 MOCA stable. Unclear if neurodegenerative vs other (possibly pseudodementia) with patient not completing full workup including lack of neurocognitive testing. With stable exam findings and no new complaints on history will continue Namenda 5mg daily. Encouraged brain exercises. 3. BARTOLO (obstructive sleep apnea) - ICD9: 327.23, ICD10: G47.33 AHI near normalized with patient tolerating PAP and having no new complaints. Will not make any adjustments to settings at this time as already has a range set that would allow for higher pressures if needed. Encouraged pt to try to sleep in the off-supine position. 4. Nonintractable epilepsy without status epilepticus, unspecified epilepsy type (HCC) - ICD9: 345.90, ICD10: G40.909 Limited history. No seizures since last visit. Uncertain if needing Phenytoin from available history, but will continue as pt states worried to make any adjustments. Will check labs as follows: - COMP METABOLIC PANEL - CBC + DIFF - PHENYTOIN/DILANTIN - PHENYTOIN FREE BLD Ant Horta MD Patient has been identified by name and date of : Yes Patient phones for refill(s): Requested Prescriptions Pending Prescriptions Disp Refills phenytoin ER (DILANTIN) 30 mg ER capsule 180 capsule 0 Sig: Take 2 capsules by mouth once daily. Date of last office visit in primary care: 05/11/21 Future visit: Last 2 Encounter Wt Readings: Date: Wt: 10/04/2021 97.1 kg (214 lb) 09/27/2021 97.1 kg (214 lb) Previous labs/tests for medication: Blood Pressure: BUN (mg/dL) Date Value 09/21/2021 28 05/11/2021 25 Sodium (mmol/L) Date Value 09/21/2021 139 05/11/2021 141 Last 1 Encounter BP Readings: Date: BP: 10/04/2021 130/62 Liver Function: ALT (U/L) Date Value 09/21/2021 15 05/11/2021 23 AST (U/L) Date Value 09/21/2021 19 05/11/2021 26 Please advise. Thank you. Liliana Taylor RN documented in this encounter [facility] 11-14-2021 Miscellaneous Notes Patient has been identified by name and date of : Yes Patient phones for refill(s): Requested Prescriptions Pending Prescriptions Disp Refills phenytoin ER (DILANTIN) 100 mg ER capsule 180 capsule 0 Sig: Take 2 capsules by mouth once daily. Date of last office visit in primary care: 05/11/2021 Last 2 Encounter Wt Readings: Date: Wt: 10/04/2021 97.1 kg (214 lb) 09/27/2021 97.1 kg (214 lb) Previous labs/tests for medication: Liver Function: ALT (U/L) Date Value 09/21/2021 15 05/11/2021 23 AST (U/L) Date Value 09/21/2021 19 05/11/2021 26 Please advise. Thank you. Rekha Jones RN documented in this encounter [facility] 11-09-2021 Miscellaneous Notes Patient calling said he lost his bottle and is out of Memantine 5 mg takes one daily. Pending rx to file. Please advise Patient has been identified by name and date of : Yes Patient phones for refill(s): Requested Prescriptions Pending Prescriptions Disp Refills memantine (NAMENDA) 5 mg tablet 90 tablet 1 Sig: Take 1 tablet by mouth once daily. Date of last office visit in primary care: 05/11/2021, has appt 12/10/2021 Last 2 Encounter Wt Readings: Date: Wt: 10/04/2021 97.1 kg (214 lb) 09/27/2021 97.1 kg (214 lb) Previous labs/tests for medication: Not applicable Please advise. Thank you. Yeny Rico LPN documented in this encounter [facility] 10-30-2021 Miscellaneous Notes Called patient. Verified name and date of . Informed of results. Patient happy and verbalizes understanding. Brenda Badillo LPN ----- Message from Jh Patel PA-C sent at 10/29/2021 6:24 PM EDT ----- PSA is 0.79, good result JOSE Ball, MARCELINO HAJI documented in this encounter [facility] 10-04-2021 Note HNO ID: [id number] Author: Shawn Crowder MD Service: ? Author Type: Physician Type: Progress Notes Filed: 10/04/2021 3:20 PM Note Text: ESTABLISHED PATIENT OFFICE VISIT HISTORY OF PRESENT ILLNESS Patient presents with: Follow Up Merrick Muñoz is a 81 year old male who presents for follow up regarding New problem- none LAB RESULTS Creatinine Date Value Ref Range Status 09/21/2021 1.27 (H) 0.73 - 1.22 mg/dL Final PSA (ng/mL) Date Value 12/11/2020 0.79 10/13/2018 0.83 01/29/2016 1.08 04/01/2014 0.50 02/02/2014 0.38 01/26/2013 0.93 03/02/2012 0.77 03/29/2009 1.70 02/03/2003 0.49 Color (no units) Date Value 09/26/2021 Yellow 10/09/2020 Yellow Clarity (no units) Date Value 09/26/2021 Clear 10/09/2020 Clear Glucose, Urine Date Value 09/26/2021 Negative 10/09/2020 Negative mg/dL Bilirubin, Urine (no units) Date Value 09/26/2021 Negative 10/09/2020 Negative Ketones, Urine (no units) Date Value 09/26/2021 Negative 10/09/2020 Negative Specific [place], Ur (no units) Date Value 09/26/2021 1.023 10/09/2020 1.020 Hemoglobin/Blood,Ur Date Value 09/26/2021 Negative 10/09/2020 Negative pH, Urine (no units) Date Value 09/26/2021 5.0 10/09/2020 5.0 Protein, Urine (no units) Date Value 09/26/2021 Negative 10/09/2020 Negative Urobilinogen Date Value 09/26/2021 Negative 10/09/2020 Negative E.U./dL Nitrites (no units) Date Value 09/26/2021 Negative 10/09/2020 Negative Leukest (no units) Date Value 10/09/2020 Trace Leuk Esterase (no units) Date Value 09/26/2021 Negative ALLERGIES No Known Allergies MEDICATIONS: levoFLOXacin (LEVAQUIN) 750 mg tablet DAILY lisinopril (ZESTRIL, PRINIVIL) 5 mg tablet DAILY cephALEXin (KEFLEX) 500 mg capsule TAKE 1 CAPSULE BY MOUTH THREE TIMES DAILY WITH FOOD FOR 5 DAYS levothyroxine (SYNTHROID) 137 mcg tablet Take 1 tablet by mouth once daily. Take on empty stomach. For thyroid. DILANTIN 30 mg ER capsule Take 2 capsules by mouth once daily phenytoin ER (DILANTIN) 100 mg ER capsule Take 2 capsules by mouth once daily. ergocalciferol 50,000 unit capsule (VITAMIN D2, DRISDOL) Take 1 capsule by mouth one time a week. memantine (NAMENDA) 5 mg tablet Take 1 tablet by mouth once daily. hydroxyurea (HYDREA) 500 mg capsule Take 2 capsules by mouth once daily. lisinopril-hydroCHLOROthiazide (PRINZIDE, ZESTORETIC) 20-25 mg per tablet Take 1 tablet by mouth once daily. tamsulosin (FLOMAX) 0.4 mg Take 1 capsule by mouth daily at bedtime. CPAP 1 Units as directed. Please provide AutoCPAP 7-10 cm H2O, lifetime supplies - including mask (nasal pillow masks or patient preference), heated humidity, heated tubing, filters. Please provide 30 day download to [phone]. DME: [facility] [place] [phone]: G47.33 CPAP Auto titrating PAP device with humidification set at a range of 7-12 cmH2O. ?PAP download in 4 weeks. A medium ResMed AirFit N20 nasal mask. Life time supplies. cyanocobalamin (VITAMIN B-12) 500 mcg tablet Take 1 tablet by mouth once daily. aspirin, enteric coated (ASPIRIN, ENTERIC COATED) 81 mg EC tablet Take 81 mg by mouth once daily. REVIEW OF SYSTEMS GENERAL:no unintentional weight loss, malaise or fevers. NEUROLOGIC: pt is alert and oriented RESPIRATORY: Negative for cough, wheezing or shortness of breath. GASTROINTESTINAL: No nausea, vomiting, or diarrhea GENITOURINARY: Positive for BPH The remainder of the ROS was reviewed and is negative. HISTORIES PAST MEDICAL HISTORY Diagnosis Date - BPH with obstruction/lower urinary tract symptoms - Generalized convulsive epilepsy without mention of intractable epilepsy - Generalized osteoarthrosis, unspecified site - Hypothyroidism - Inguinal hernia without mention of obstruction or gangrene, unilateral or unspecified, (not specified as recurrent) Inguinal hernia - Left leg DVT (HCC) 06/11/2012 - Migraines - Unspecified sleep apnea - Urinary calculus, unspecified Renal stones FAMILY HISTORY Problem Relation Age of Onset - GI Mother - Hypertension Mother - other (migraine) Mother - Alzheimer's Disease Father - Cancer Father - Kidney Disease Sister - Arthritis Brother - Cancer Brother PAST SURGICAL HISTORY Procedure Laterality Date - COLONOSCOPY FLX DX W/COLLJ SPEC WHEN PFRMD N/A 05/17/2016 - CYSTOSCOPY N/A 11/02/2020 - RPR 1ST INGUN HRNA AGE 5 YRS/> REDUCIBLE Hernia repair, inguinal SOCIAL HISTORY Social History Tobacco Use - Smoking status: Former Smoker Types: Pipe Quit date: 03/24/1972 Years since quittin.5 - Smokeless tobacco: Never Used - Tobacco comment: Pt stated he only smoked for a short time Substance Use Topics - Alcohol use: No - Drug use: No PHYSICAL EXAMINATION General appearance: Well appearing, alert, in no acute distress, well-hydrated, well nourished Psych Alert and oriented to person, place and time Respiratory: no wheezing o (more content not included)... [facility] 10-04-2021 History of Present illness Narrative ESTABLISHED PATIENT OFFICE VISIT HISTORY OF PRESENT ILLNESS Patient presents with: Follow Up Merrick Muñoz is a 81 year old male who presents for follow up regarding New problem- none LAB RESULTS Creatinine Date Value Ref Range Status 09/21/2021 1.27 (H) 0.73 - 1.22 mg/dL Final PSA (ng/mL) Date Value 12/11/2020 0.79 10/13/2018 0.83 01/29/2016 1.08 04/01/2014 0.50 02/02/2014 0.38 01/26/2013 0.93 03/02/2012 0.77 03/29/2009 1.70 02/03/2003 0.49 Color (no units) Date Value 09/26/2021 Yellow 10/09/2020 Yellow Clarity (no units) Date Value 09/26/2021 Clear 10/09/2020 Clear Glucose, Urine Date Value 09/26/2021 Negative 10/09/2020 Negative mg/dL Bilirubin, Urine (no units) Date Value 09/26/2021 Negative 10/09/2020 Negative Ketones, Urine (no units) Date Value 09/26/2021 Negative 10/09/2020 Negative Specific [place], Ur (no units) Date Value 09/26/2021 1.023 10/09/2020 1.020 Hemoglobin/Blood,Ur Date Value 09/26/2021 Negative 10/09/2020 Negative pH, Urine (no units) Date Value 09/26/2021 5.0 10/09/2020 5.0 Protein, Urine (no units) Date Value 09/26/2021 Negative 10/09/2020 Negative Urobilinogen Date Value 09/26/2021 Negative 10/09/2020 Negative E.U./dL Nitrites (no units) Date Value 09/26/2021 Negative 10/09/2020 Negative Leukest (no units) Date Value 10/09/2020 Trace Leuk Esterase (no units) Date Value 09/26/2021 Negative ALLERGIES No Known Allergies MEDICATIONS: levoFLOXacin (LEVAQUIN) 750 mg tablet DAILY lisinopril (ZESTRIL, PRINIVIL) 5 mg tablet DAILY cephALEXin (KEFLEX) 500 mg capsule TAKE 1 CAPSULE BY MOUTH THREE TIMES DAILY WITH FOOD FOR 5 DAYS levothyroxine (SYNTHROID) 137 mcg tablet Take 1 tablet by mouth once daily. Take on empty stomach. For thyroid. DILANTIN 30 mg ER capsule Take 2 capsules by mouth once daily phenytoin ER (DILANTIN) 100 mg ER capsule Take 2 capsules by mouth once daily. ergocalciferol 50,000 unit capsule (VITAMIN D2, DRISDOL) Take 1 capsule by mouth one time a week. memantine (NAMENDA) 5 mg tablet Take 1 tablet by mouth once daily. hydroxyurea (HYDREA) 500 mg capsule Take 2 capsules by mouth once daily. lisinopril-hydroCHLOROthiazide (PRINZIDE, ZESTORETIC) 20-25 mg per tablet Take 1 tablet by mouth once daily. tamsulosin (FLOMAX) 0.4 mg Take 1 capsule by mouth daily at bedtime. CPAP 1 Units as directed. Please provide AutoCPAP 7-10 cm H2O, lifetime supplies - including mask (nasal pillow masks or patient preference), heated humidity, heated tubing, filters. Please provide 30 day download to [phone]. DME: [facility] [phone]: G47.33 CPAP Auto titrating PAP device with humidification set at a range of 7-12 cmH2O. PAP download in 4 weeks. A medium ResMed AirFit N20 nasal mask. Life time supplies. cyanocobalamin (VITAMIN B-12) 500 mcg tablet Take 1 tablet by mouth once daily. aspirin, enteric coated (ASPIRIN, ENTERIC COATED) 81 mg EC tablet Take 81 mg by mouth once daily. REVIEW OF SYSTEMS GENERAL:no unintentional weight loss, malaise or fevers. NEUROLOGIC: pt is alert and oriented RESPIRATORY: Negative for cough, wheezing or shortness of breath. GASTROINTESTINAL: No nausea, vomiting, or diarrhea GENITOURINARY: Positive for BPH The remainder of the ROS was reviewed and is negative. 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, unspecified site Hypothyroidism Inguinal hernia without mention of obstruction or gangrene, unilateral or unspecified, (not specified as recurrent) Inguinal hernia Left leg DVT (HCC) 06/11/2012 Migraines Unspecified sleep apnea Urinary calculus, unspecified Renal stones FAMILY HISTORY Problem Relation Age of Onset GI Mother Hypertension Mother other (migraine) Mother Alzheimer's Disease Father Cancer Father Kidney Disease Sister Arthritis Brother Cancer Brother PAST SURGICAL HISTORY Procedure Laterality Date COLONOSCOPY FLX DX W/COLLJ SPEC WHEN PFRMD N/A 05/17/2016 CYSTOSCOPY N/A 11/02/2020 RPR 1ST INGUN HRNA AGE 5 YRS/> REDUCIBLE Hernia repair, inguinal SOCIAL HISTORY Social History Tobacco Use Smoking status: Former Smoker Types: Pipe Quit date: 03/24/1972 Years since quittin.5 Smokeless tobacco: Never Used Tobacco comment: Pt stated he only smoked for a short time Substance Use Topics Alcohol use: No Drug use: No PHYSICAL EXAMINATION General appearance: Well appearing, alert, in no acute distress, well-hydrated, well nourished Psych Alert and oriented to person, place and time Respiratory: no wheezing or rhonchi Genitourinary: MALE EXAM: Exam NOT Indicated 12/11/2020 PSA 0.8 03/26/2021 ucx neg 11/09/2020 CT flank B 2-3mm stones, no hydro 11/02/2020 Office cysto- bladder tic 10/18/2020 ucx 50-100k proteus 09/22/2020 ucx >100k proteus 09/05/2020 PVR 10cc 07/31/2020 ucx >100k proteus 10/24/2019 CT a/p B 3-4mm renal stones, left 3mm UVJ with mild hydro Assessment and Plan: B renal stones- latest CT with no hydro and B 2-3mm stones, no CVAT Recurrent UTI- previously had recurrent proteus UTI's then completed QHS Bactrim x 30d and no UTI issues since, doing well LUTS- on Flomax; nocturia 2-3x, freq Q 2h, no hematuria/dysuria - cont meds, pt happy with how things are documented in this encounter [facility] 09-27-2021 History of Present illness Narrative Chief Complaint Patient presents with: Physical HPI Merrick Muñoz is a 81 year old male who presents here today for physical. He does have an advanced directive. Mini cog test completed score 5/5. No bowel, Gi, or urinary issues. Hx of UTIs, follows with Urologist Dr. Shawn Crowder and KATERYNA Kim. Does get up a few times per night to urinate. Is taking Flomax 0.4 mg daily. Hx of kidney stones and hernia repair. Thrombocytosis: is taking Hydrea 500 mg, 2 pills once daily. HTN: Denies any chest pains, dizziness, or SOB. Occ dizziness with moving too quickly. Follows with Cardio, Dr. Nova, yearly. Taking Lisnopril-HCTZ 20-25 mg daily. BARTOLO: Using AutoPAP at 7-10 cm of water. Follows with Neuro, Dr. Horta for sleep apnea. Feels the AutoPAP is working well for him, does nap once a daily. Thyroid: Is on Synthroid 137 mcg daily, denies missing any dosages. Follows with [facility] Endocrinology Dr. Sarah Ferris. Seizures: Stable x 20-30 years, taking Dilantin 100 mg, 2 pills once a day and Dilantin 30 mg [address] Horta. Vitamin D Deficiency: Taking Vitamin D3 50,000 international unit(s) weekly which is managed by Secretary Book Keeper. Memory: Taking Namenda 5 mg daily. He doesn't know if the memory is getting worse but states its not good. Dorsal part of hand around thumb will turn red at times; no other symptoms with this. Nothing he can correlate with this. Past medical history, appointments, medications, allergies reviewed. 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, unspecified site Hypothyroidism Inguinal hernia without mention of obstruction or gangrene, unilateral or unspecified, (not specified as recurrent) Inguinal hernia Left leg DVT (HCC) 06/11/2012 Migraines Unspecified sleep apnea Urinary calculus, unspecified Renal stones Previous Surgical History PAST SURGICAL HISTORY Procedure Laterality Date COLONOSCOPY FLX DX W/COLLJ SPEC WHEN PFRMD N/A 05/17/2016 CYSTOSCOPY N/A 11/02/2020 RPR 1ST INGUN HRNA AGE 5 YRS/> REDUCIBLE Hernia repair, inguinal Family History FAMILY HISTORY Problem Relation Age of Onset GI Mother Hypertension Mother other (migraine) Mother Alzheimer's Disease Father Cancer Father Kidney Disease Sister Arthritis Brother Cancer Brother Patient Allergies ALLERGIES No Known Allergies Current Medications Current Outpatient Medications on File Prior to Visit Medication Sig DILANTIN 30 mg ER capsule Take 2 capsules by mouth once daily phenytoin ER (DILANTIN) 100 mg ER capsule Take 2 capsules by mouth once daily. benzonatate (TESSALON PERLES) 100 mg capsule Take 2 capsules by mouth three times daily as needed. loratadine (CLARITIN) 10 mg tablet Take 1 tablet by mouth once daily. guaiFENesin (MUCINEX) 600 mg 12 hr tablet Take 2 tablets by mouth twice daily. ergocalciferol 50,000 unit capsule (VITAMIN D2, DRISDOL) Take 1 capsule by mouth one time a week. memantine (NAMENDA) 5 mg tablet Take 1 tablet by mouth once daily. hydroxyurea (HYDREA) 500 mg capsule Take 2 capsules by mouth once daily. lisinopril-hydroCHLOROthiazide (PRINZIDE, ZESTORETIC) 20-25 mg per tablet Take 1 tablet by mouth once daily. CPAP Please change PAP setting to 7-12 cmH2O. tamsulosin (FLOMAX) 0.4 mg Take 1 capsule by mouth daily at bedtime. sulfamethoxazole-trimethoprim (BACTRIM DS) 800-160 mg per tablet Take 1 tablet by mouth once daily. CPAP 1 Units as directed. Please provide AutoCPAP 7-10 cm H2O, lifetime supplies - including mask (nasal pillow masks or patient preference), heated humidity, heated tubing, filters. Please provide 30 day download to [phone]. DME: [facility] [place] [phone] Diagnosis: G47.33 CPAP Auto titrating PAP device with humidification set at a range of 7-12 cmH2O. PAP download in 4 weeks. A medium ResMed AirFit N20 nasal mask. Life time supplies. levothyroxine (SYNTHROID) 112 mcg tablet Take 1 tablet by mouth once daily. Take on empty stomach. For thyroid ergocalciferol 50,000 unit capsule (VITAMIN D2, DRISDOL) Take 1 capsule by mouth one time a week. (Patient not taking: Reported on 05/11/2021 ) cyanocobalamin (VITAMIN B-12) 500 mcg tablet Take 1 tablet by mouth once daily. aspirin, enteric coated (ASPIRIN, ENTERIC COATED) 81 mg EC tablet Take 81 mg by mouth once daily. No current facility-administered medications on file prior to visit. Social History Social History Tobacco Use Smoking status: Former Smoker Types: Pipe Quit date: 03/24/1972 Years since quittin.5 Smokeless tobacco: Never Used Tobacco comment: Pt stated he only smoked for a short time Substance Use Topics Alcohol use: No Drug use: No EXAM: BP 138/78 Pulse 66 Resp 16 Ht 177.8 cm (5' 10 ) Wt 97.1 kg (214 lb) BMI 30.71 kg/m General Appearance: Well appearing, alert, in no acute distress, well-hydrated, well nourished.. Lungs: Lungs clear to auscultation. No wheezing, rhonchi, rales.. Heart: RRR without murmur, gallop, or rubs. No ectopy. Health Maintenance List SHINGRIX VACCINE(1 of 2) Never done DTAP,TDAP,TD(1 - Tdap) due on 04/15/2015 COVID-19 VACCINE(3 - Booster for Pfizer series) due on 11/08/2020 DEPRESSION SCREENING due on 12/15/2020 ADVANCE DIRECTIVE DISCUSSION Never done INFLUENZA(1) due on 11/22/2021 ANNUAL PCP TEAM CHRONIC DISEASE VISIT due on 04/06/2022 BP CONTROLLED (<130/80) due on 06/27/2022 DIABETES SCREEN due on 09/21/2024 PNEUMOCOCCAL: 65+ Completed Data reviewed Appointment on 09/21/2021 Component Date Value Protein, Total 09/21/2021 6.7 Albumin 09/21/2021 4.4 Calcium, Total 09/21/2021 9.4 Bilirubin, Total 09/21/2021 0.4 Alkaline Phosphatase 09/21/2021 59 AST 09/21/2021 19 ALT 09/21/2021 15 Glucose 09/21/2021 100 (A) BUN 09/21/2021 28 (A) Creatinine 09/21/2021 1.27 (A) Sodium 09/21/2021 139 Potassium 09/21/2021 4.8 Chloride 09/21/2021 104 CO2 09/21/2021 23 Anion Gap 09/21/2021 12 Estimated Glomerular J[place]* 09/21/2021 57 (A) Cholesterol, Total 09/21/2021 174 Triglyceride 09/21/2021 58 HDL Cholesterol 09/21/2021 50 Non HDL Cholesterol 09/21/2021 124 Fasting Time 09/21/2021 10 VLDL Cholesterol 09/21/2021 12 TC:HDL Ratio 09/21/2021 3.48 LDL Cholesterol 09/21/2021 112 (A) LDL:HDL Ratio 09/21/2021 2.24 WBC 09/21/2021 6.40 RBC 09/21/2021 3.61 (A) Hemoglobin 09/21/2021 14.5 Hematocrit 09/21/2021 44.0 MCV 09/21/2021 121.9 (A) MCH 09/21/2021 40.2 (A) MCHC 09/21/2021 33.0 RDW-CV 09/21/2021 14.1 Platelet Count 09/21/2021 663 (A) MPV 09/21/2021 8.4 (A) Neut% 09/21/2021 71.6 Abs Neut 09/21/2021 4.58 Lymph% 09/21/2021 16.7 Abs Lymph 09/21/2021 1.07 Grand% 09/21/2021 8.4 Abs Grand 09/21/2021 0.54 Eosin% 09/21/2021 1.6 Abs Eosin 09/21/2021 0.10 Baso% 09/21/2021 1.4 Abs Baso 09/21/2021 0.09 Immature Gran % 09/21/2021 0.3 Abs Immature Gran 09/21/2021 <0.03 NRBC 09/21/2021 0.0 Absolute nRBC 09/21/2021 <0.01 Red Cell Morph 09/21/2021 Reviewed: see results of individual morphologies Polychromasia 09/21/2021 Slight Ovalocytes 09/21/2021 Few Tear Drop Cells 09/21/2021 Few Hypersegmented Neuts 09/21/2021 Present Diff Type 09/21/2021 Auto TSH 09/21/2021 4.250 (A) ASSESSMENT/PLAN: 1. Seizure disorder (HCC) - ICD9: 345.90, ICD10: G40.909 (primary diagnosis) Continue current medications. 2. Essential hypertension - ICD9: 401.9, ICD10: I10 - good control - Continue current medication(s) - Recommended regular aerobic exercise. - Recommend home blood pressure monitoring, to bring results in on next visit - Goal of BP <130/80 3. Hyperlipidemia with target LDL less than 130 - ICD9: 272.4, ICD10: E78.5 - good control - Continue current medication. 4. BARTOLO (obstructive sleep apnea) - ICD9: 327.23, ICD10: G47.33 Continue CPAP 5. Hypothyroidism, unspecified type - ICD9: 244.9, ICD10: E03.9 Follow with Endocrinology 6. Myeloproliferative disease (HCC) - ICD9: 238.79, ICD10: D47.1 Stable Follow up in 1 year I agree with the Chief Complaint, ROS, and Past Histories independently gathered by the clinical field support specialist and the remaining scribed note accurately describes my personal service to the patient. Medical Decision Making: Problems: Moderate: 2+ stable chronic illnesses Data: Unique test result(s) reviewed: 3+ Risk: Moderate: Drug management Medical Decision Making Level: 4 - Moderate Analisa Daigle MD The documentation for this note was completed by Ivory Montesinos Ma acting as scribe for Analisa Daigle MD. September 27, 2021 2:18 PM. Ivory Montesinos Ma documented in this encounter [facility] 09-25-2021 Miscellaneous Notes UA filed. Quinton Hubbard APRN.CENTER DIRECTOR LEAD TEACHER Can you add a urine/urine cx to current labs to complete due to hx of UTI's. Update pt once completed. Ignacia Donis Ma documented in this encounter [facility] 08-30-2021 Miscellaneous Notes TC to pharmacy who verifies that there is a prescription for Dilantin 30 mg at the pharmacy. My Chart message sent to patient. ELYSE Govea Please clarify with pharmacy. these were both sent of 08/21/21. Thank you. Ant Horta MD Spoke to patiuent he , he said he picked up the prescription for 100 mg but needs a refill on the 30 mg. documented in this encounter [facility] 08-21-2021 Miscellaneous Notes Patient phones requesting refills as follows: Pending Prescriptions Disp Refills DILANTIN 30 MG CAPSULE 180 capsule 0 Sig: Take 2 capsules by mouth once daily COLTON: Yes Please review and advise. Juan M Wan documented in this encounter [facility] 08-17-2021 Miscellaneous Notes Nursing called [facility] and spoke with Pharmacist. Patient has Phenytoin RX on Hold. Will fill RX for patient. Patient aware, will check and make sure it is the correct dose. Marissa De Dios LPN Patient aware rx is managed by Dr. Galloway routing to his office to refill. Patient would like rx just sent to [facility] now for the 100 mg BID. Please send Kyra Hsu Ma documented in this encounter [facility] 07-06-2021 Miscellaneous Notes I agree with the advice given Analisa Daigle MD Pt states he only has taken 2 doses of Mucinex & was hesitant on taking Prednisone & Tessalon because of current medications & thought he would be able to shake it off without medication. This ARMINDA advised patient to take all prescribed medications from UC visit & to notify PCP in 1-2 weeks if not improving. Reassured patient that current medications are always reviewed at urgent care visit. Patient verbalizes understanding of instructions. Will close TE at this time. Shellie Daniel Ma Since the cough is varying I would continue to monitor for another 1-2 weeks, and see if it does not improve Analisa Daigle MD Patient calling, states that he is still coughing from when he was in UC last week. States that last night was much worse than it is this morning. It has been varying like that. Some days are better than others. He was told to call PCP office if still coughing in a week. Please advise. documented in this encounter [facility] 06-27-2021 History of Present illness Narrative This note was created using numberFire. Subjective Merrick Muñoz is a 81 year old male. HPI Presents with cough and chest congestion for a month. No facial pain or pressure. No fever. He did have Covid in the summer 2019 and was in the ICU for it. He states he had bilateral pneumonia at that time. He is vaccinated. Denies chest pain or shortness of breath. No leg pain or swelling. No OTC meds. Review of Systems HENT: Positive for congestion. Negative for sinus pressure and sinus pain. Respiratory: Positive for cough. Negative for chest tightness, shortness of breath and wheezing. Cardiovascular: Negative. Gastrointestinal: Negative. Genitourinary: Negative. Musculoskeletal: Negative. Skin: Negative. All other systems reviewed and are negative. 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 180 capsule 0 phenytoin ER (DILANTIN) 30 mg ER capsule Take 2 capsules by mouth once daily. 180 capsule 0 ergocalciferol 50,000 unit capsule (VITAMIN D2, DRISDOL) Take 1 capsule by mouth one time a week. memantine (NAMENDA) 5 mg tablet Take 1 tablet by mouth once daily. 90 tablet 1 hydroxyurea (HYDREA) 500 mg capsule Take 2 capsules by mouth once daily. 180 capsule 3 lisinopril-hydroCHLOROthiazide (PRINZIDE, ZESTORETIC) 20-25 mg per tablet Take 1 tablet by mouth once daily. 90 tablet 3 CPAP Please change PAP setting to 7-12 cmH2O. 1 Each 99 tamsulosin (FLOMAX) 0.4 mg Take 1 capsule by mouth daily at bedtime. 90 capsule 5 sulfamethoxazole-trimethoprim (BACTRIM DS) 800-160 mg per tablet Take 1 tablet by mouth once daily. 30 tablet 0 CPAP 1 Units as directed. Please provide AutoCPAP 7-10 cm H2O, lifetime supplies - including mask (nasal pillow masks or patient preference), heated humidity, heated tubing, filters. Please provide 30 day download to [phone]. DME: [facility] [place] [phone] Diagnosis: G47.33 1 Device 0 CPAP Auto titrating PAP device with humidification set at a range of 7-12 cmH2O. PAP download in 4 weeks. A medium ResMed AirFit N20 nasal mask. Life time supplies. 1 Device 99 levothyroxine (SYNTHROID) 112 mcg tablet Take 1 tablet by mouth once daily. Take on empty stomach. For thyroid 30 tablet 0 cyanocobalamin (VITAMIN B-12) 500 mcg tablet Take 1 tablet by mouth once daily. aspirin, enteric coated (ASPIRIN, ENTERIC COATED) 81 mg EC tablet Take 81 mg by mouth once daily. benzonatate (TESSALON PERLES) 100 mg capsule Take 2 capsules by mouth three times daily as needed. 30 capsule 0 loratadine (CLARITIN) 10 mg tablet Take 1 tablet by mouth once daily. 14 tablet 0 guaiFENesin (MUCINEX) 600 mg 12 hr tablet Take 2 tablets by mouth twice daily. 14 tablet 0 ergocalciferol 50,000 unit capsule (VITAMIN D2, DRISDOL) Take 1 capsule by mouth one time a week. (Patient not taking: Reported on 05/11/2021 ) 12 capsule 3 No current facility-administered medications for this visit. PAST SURGICAL HISTORY Procedure Laterality Date COLONOSCOPY FLX DX W/COLLJ SPEC WHEN PFRMD N/A 05/17/2016 CYSTOSCOPY N/A 11/02/2020 RPR 1ST INGUN HRNA AGE 5 YRS/> REDUCIBLE Hernia repair, inguinal FAMILY HISTORY Problem Relation Age of Onset GI Mother Hypertension Mother other (migraine) Mother Alzheimer's Disease Father Cancer Father Kidney Disease Sister Arthritis Brother Cancer Brother Social History Tobacco Use Smoking status: Former Smoker Types: Pipe Quit date: 03/24/1972 Years since quittin.2 Smokeless tobacco: Never Used Tobacco comment: Pt stated he only smoked for a short time Substance Use Topics Alcohol use: No Drug use: No Objective BP 128/64 Pulse (!) 55 Temp 36.6 C (97.8 F) Resp 20 Wt 99.5 kg (219 lb 6.4 oz) SpO2 99% BMI 31.48 kg/m Physical Exam Vitals reviewed. Constitutional: Appearance: Normal appearance. HENT: Head: Normocephalic and atraumatic. Right Ear: Tympanic membrane, ear canal and external ear normal. Left Ear: Tympanic membrane, ear canal and external ear normal. Nose: Nose normal. Mouth/Throat: Mouth: Mucous membranes are moist. Pharynx: Oropharynx is clear. Cardiovascular: Rate and Rhythm: Normal rate and regular rhythm. Heart sounds: Normal heart sounds. Pulmonary: Effort: Pulmonary effort is normal. Breath sounds: Normal breath sounds. No wheezing, rhonchi or rales. Musculoskeletal: Cervical back: Neck supple. Skin: General: Skin is warm and dry. Neurological: General: No focal deficit present. Mental Status: He is alert and oriented to person, place, and time. Assessment and Plan ASSESSMENT/PLAN: 1. Cough - ICD9: 786.2, ICD10: R05.9 Likely viral bronchitis. cxr clear. Given mucinex, prednisone, and tessalon. If not improving followup with pcp. Patient agreeable. - XR CHEST 2V FRONTAL/LAT Carmina Mcintosh PA-C documented in this encounter [facility] 06-12-2021 Miscellaneous Notes Pt called back and he checked with [facility] and the downs is the same as [facility]. Pt will get rx at [facility]. Danielle Fontenot LPN Patient calling said the downs of the generic dilantin 30 mg capsules is over 200 hundred dollars. He is asking for the rx to be sent to [facility] hoping it will be cheaper. Patient said he is still taking generic Dilantin 100 mg, three capsules daily, since he does not have the 30 mg capsules. He did not mixing picker tender the rx due to the downs at local pharmacy. Pending rx to send to [facility]. He is asking when does he do repeat lab work again? Please advise documented in this encounter [facility] 04-05-2021 Note HNO ID: [id number] Author: Shawn Crowder MD Service: ? Author Type: Physician Type: Progress Notes Filed: 04/05/2021 12:01 PM Note Text: ESTABLISHED PATIENT OFFICE VISIT HISTORY OF PRESENT ILLNESS Patient presents with: Prostate Problem: BPH Merrick Muñoz is a 80 year old male who presents for follow up regarding the below issues New problem- none LAB RESULTS Creatinine Date Value Ref Range Status 03/27/2021 1.22 0.73 - 1.22 mg/dL Final PSA (ng/mL) Date Value 12/11/2020 0.79 10/13/2018 0.83 01/29/2016 1.08 04/01/2014 0.50 02/02/2014 0.38 01/26/2013 0.93 03/02/2012 0.77 03/29/2009 1.70 02/03/2003 0.49 Color (no units) Date Value 10/09/2020 Yellow Clarity (no units) Date Value 10/09/2020 Clear Glucose, Urine (mg/dL) Date Value 10/09/2020 Negative Bilirubin, Urine (no units) Date Value 10/09/2020 Negative Ketones, Urine (no units) Date Value 10/09/2020 Negative Specific [place], Ur (no units) Date Value 10/09/2020 1.020 Hemoglobin/Blood,Ur ( ) Date Value 10/09/2020 Negative pH, Urine (no units) Date Value 10/09/2020 5.0 Protein, Urine (no units) Date Value 10/09/2020 Negative Urobilinogen (E.U./dL) Date Value 10/09/2020 Negative Nitrites (no units) Date Value 10/09/2020 Negative Leukest (no units) Date Value 10/09/2020 Trace ALLERGIES No Known Allergies MEDICATIONS: hydroxyurea (HYDREA) 500 mg capsule Take 2 capsules by mouth once daily. hydroxyurea (HYDREA) 500 mg capsule Take 2 capsules by mouth once daily. lisinopril-hydroCHLOROthiazide (PRINZIDE, ZESTORETIC) 20-25 mg per tablet Take 1 tablet by mouth once daily. lisinopril-hydroCHLOROthiazide (PRINZIDE, ZESTORETIC) 20-25 mg per tablet Take 1 tablet by mouth once daily. phenytoin ER (DILANTIN) 100 mg ER capsule TAKE 3 CAPSULES ONCE DAILY CPAP Please change PAP setting to 7-12 cmH2O. tamsulosin (FLOMAX) 0.4 mg Take 1 capsule by mouth daily at bedtime. CPAP 1 Units as directed. Please provide AutoCPAP 7-10 cm H2O, lifetime supplies - including mask (nasal pillow masks or patient preference), heated humidity, heated tubing, filters. Please provide 30 day download to [phone]. DME: [facility] [place] [phone]: G47.33 CPAP Auto titrating PAP device with humidification set at a range of 7-12 cmH2O. ?PAP download in 4 weeks. A medium ResMed AirFit N20 nasal mask. Life time supplies. levothyroxine (SYNTHROID) 112 mcg tablet Take 1 tablet by mouth once daily. Take on empty stomach. For thyroid ergocalciferol 50,000 unit capsule (VITAMIN D2, DRISDOL) Take 1 capsule by mouth one time a week. cyanocobalamin (VITAMIN B-12) 500 mcg tablet Take 1 tablet by mouth once daily. aspirin, enteric coated (ASPIRIN, ENTERIC COATED) 81 mg EC tablet Take 81 mg by mouth once daily. sulfamethoxazole-trimethoprim (BACTRIM DS) 800-160 mg per tablet Take 1 tablet by mouth once daily. REVIEW OF SYSTEMS GENERAL:no unintentional weight loss, malaise or fevers. NEUROLOGIC: pt is alert and oriented RESPIRATORY: Negative for cough, wheezing or shortness of breath. GASTROINTESTINAL: No nausea, vomiting, or diarrhea GENITOURINARY: Positive for BPH The remainder of the ROS was reviewed and is negative. HISTORIES PAST MEDICAL HISTORY Diagnosis Date - BPH with obstruction/lower urinary tract symptoms - Generalized convulsive epilepsy without mention of intractable epilepsy - Generalized osteoarthrosis, unspecified site - Hypothyroidism - Inguinal hernia without mention of obstruction or gangrene, unilateral or unspecified, (not specified as recurrent) Inguinal hernia - Left leg DVT (HCC) 06/11/2012 - Migraines - Unspecified sleep apnea - Urinary calculus, unspecified Renal stones FAMILY HISTORY Problem Relation Age of Onset - GI Mother - Hypertension Mother - other (migraine) Mother - Alzheimer's Disease Father - Cancer Father - Kidney Disease Sister - Arthritis Brother - Cancer Brother PAST SURGICAL HISTORY Procedure Laterality Date - COLONOSCOP W/ OR W/O [facility] SPEC N/A 05/17/2016 - CYSTOSCOPY N/A 11/02/2020 - REPAIR ING HERNIA,5+Y/O,REDUCIBL Hernia repair, inguinal SOCIAL HISTORY Social History Tobacco Use - Smoking status: Former Smoker Types: Pipe Quit date: 03/24/1972 Years since quittin.0 - Smokeless tobacco: Never Used - Tobacco comment: Pt stated he only smoked for a short time Substance Use Topics - Alcohol use: No - Drug use: No PHYSICAL EXAMINATION General appearance: Well appearing, alert, in no acute distress, well-hydrated, well nourished Psych Alert and oriented to person, place and time Respiratory: no wheezing or rhonchi Abdomen Genitourinary: MALE EXAM: Exam NOT Indicated 12/11/2020 PSA 0.8 03/26/2021 ucx neg 11/09/2020 CT flank B 2-3mm stones, no hydro 11/02/2020 Office cysto- bladder tic? 10/18/2020 ucx 50-100k proteus 09/22/2020 ucx >100k proteus 09/05/2020 PVR (more content not included)... [facility] 07-20-2020 Miscellaneous Notes Patient asking Daniel Grace, return his call, as he would like to talk to you about tomorrow's appt. Patient did not convey to this nurse anything more, just that he would like Crime Scene Investigator to return his call: [phone]. documented in this encounter [facility] documented as of this encounter (statuses as of 06/12/2021) [facility] History of Past illness Narrative* Problem Noted Date Resolved Date Rectal bleeding 05/17/2016 05/17/2016 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 Elevated prostate specific antigen (PSA) 010 04/06/2014 documented as of this encounter (statuses as of 06/27/2021) [facility] History of Past illness Narrative* Problem Noted Date Resolved Date Rectal bleeding 05/17/2016 05/17/2016 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 Elevated prostate specific antigen (PSA) 010 04/06/2014 documented as of this encounter (statuses as of 07/06/2021) [facility] History of Past illness Narrative* Problem Noted Date Resolved Date Rectal bleeding 05/17/2016 05/17/2016 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 Elevated prostate specific antigen (PSA) 2 010 04/06/2014 documented as of this encounter (statuses as of 07/12/2021) [facility] History of Past illness Narrative* Problem Noted Date Resolved Date Rectal bleeding 05/17/2016 05/17/2016 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 Elevated prostate specific antigen (PSA) 2 010 04/06/2014 documented as of this encounter (statuses as of 08/17/2021) [facility] History of Past illness Narrative* Problem Noted Date Resolved Date Rectal bleeding 05/17/2016 05/17/2016 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 Elevated prostate specific antigen (PSA) 2 010 04/06/2014 documented as of this encounter (statuses as of 08/21/2021) [facility] History of Past illness Narrative* Problem Noted Date Resolved Date Rectal bleeding 05/17/2016 05/17/2016 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 Elevated prostate specific antigen (PSA) 010 04/06/2014 documented as of this encounter (statuses as of 08/30/2021) [address]24-2017 History of Past illness Narrative* Problem Noted Date Resolved Date Rectal bleeding 05/17/2016 05/17/2016 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 Elevated prostate specific antigen (PSA) 010 04/06/2014 documented as of this encounter (statuses as of 09/25/2021) [address]24-2017 History of Past illness Narrative* Problem Noted Date Resolved Date Rectal bleeding 05/17/2016 05/17/2016 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 Elevated prostate specific antigen (PSA) 010 04/06/2014 documented as of this encounter (statuses as of 09/27/2021) [address]24-2017 History of Past illness Narrative* Problem Noted Date Resolved Date Rectal bleeding 05/17/2016 05/17/2016 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 Elevated prostate specific antigen (PSA) 010 04/06/2014 documented as of this encounter (statuses as of 09/27/2021) [address]24-2017 History of Past illness Narrative* Problem Noted Date Resolved Date Rectal bleeding 05/17/2016 05/17/2016 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 Elevated prostate specific antigen (PSA) 2 010 04/06/2014 documented as of this encounter (statuses as of 10/04/2021) [address]24-2017 History of Past illness Narrative* Problem Noted Date Resolved Date Rectal bleeding 05/17/2016 05/17/2016 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 Elevated prostate specific antigen (PSA) 04/07/2 010 04/06/2014 documented as of this encounter (statuses as of 10/30/2021) [address]24-2017 History of Past illness Narrative* Problem Noted Date Resolved Date Rectal bleeding 05/17/2016 05/17/2016 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 Elevated prostate specific antigen (PSA) 010 04/06/2014 documented as of this encounter (statuses as of 11/09/2021) [address]24-2017 History of Past illness Narrative* Problem Noted Date Resolved Date Rectal bleeding 05/17/2016 05/17/2016 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 Elevated prostate specific antigen (PSA) 010 04/06/2014 documented as of this encounter (statuses as of 11/14/2021) [facility] History of Past illness Narrative* Problem Noted Date Resolved Date Rectal bleeding 05/17/2016 05/17/2016 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 Elevated prostate specific antigen (PSA) 010 04/06/2014 documented as of this encounter (statuses as of 12/06/2021) [address]24-2017 History of Past illness Narrative* Problem Noted Date Resolved Date Rectal bleeding 05/17/2016 05/17/2016 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 Elevated prostate specific antigen (PSA) 010 04/06/2014 documented as of this encounter (statuses as of 12/11/2021) [facility] History of Past illness Narrative* Problem Noted Date Resolved Date Rectal bleeding 05/17/2016 05/17/2016 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 Elevated prostate specific antigen (PSA) 2 010 04/06/2014 documented as of this encounter (statuses as of 12/14/2021) [address]24-2017 History of Past illness Narrative* Problem Noted Date Resolved Date Rectal bleeding 05/17/2016 05/17/2016 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 Elevated prostate specific antigen (PSA) 2 010 04/06/2014 documented as of this encounter (statuses as of 03/12/2022) [address]24-2017 History of Past illness Narrative* Problem Noted Date Resolved Date Rectal bleeding 05/17/2016 05/17/2016 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 Elevated prostate specific antigen (PSA) 152 010 04/06/2014 documented as of this encounter (statuses as of 03/28/2022) [facility] History of Past illness Narrative* Problem Noted Date Resolved Date Rectal bleeding 05/17/2016 05/17/2016 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 Elevated prostate specific antigen (PSA) 15/2 010 04/06/2014 documented as of this encounter (statuses as of 03/28/2022) [facility] History of Past illness Narrative* Problem Noted Date Resolved Date Rectal bleeding 05/17/2016 05/17/2016 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 Elevated prostate specific antigen (PSA) 2 010 04/06/2014 documented as of this encounter (statuses as of 05/16/2022) [facility] History of Past illness Narrative* Problem Noted Date Resolved Date Rectal bleeding 05/17/2016 05/17/2016 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 Elevated prostate specific antigen (PSA) 2 010 04/06/2014 documented as of this encounter (statuses as of 06/01/2022) [facility] History of Past illness Narrative* Problem Noted Date Resolved Date Rectal bleeding 05/17/2016 05/17/2016 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 Elevated prostate specific antigen (PSA) 2 010 04/06/2014 documented as of this encounter (statuses as of 07/05/2022) [facility] History of Past illness Narrative* Problem Noted Date Resolved Date Rectal bleeding 05/17/2016 05/17/2016 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 Elevated prostate specific antigen (PSA) 15/2 010 04/06/2014 documented as of this encounter (statuses as of 07/23/2022) [facility] History of Past illness Narrative* Problem Noted Date Resolved Date Rectal bleeding 05/17/2016 05/17/2016 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 Elevated prostate specific antigen (PSA) 152 010 04/06/2014 documented as of this encounter (statuses as of 07/23/2022) [facility] History of Past illness Narrative* Problem Noted Date Resolved Date Rectal bleeding 05/17/2016 05/17/2016 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 Elevated prostate specific antigen (PSA) 010 04/06/2014 documented as of this encounter (statuses as of 09/26/2022) [address]24-2017 History of Past illness Narrative* Problem Noted Date Resolved Date Rectal bleeding 05/17/2016 05/17/2016 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 Elevated prostate specific antigen (PSA) 010 04/06/2014 documented as of this encounter (statuses as of 09/27/2022) [address]24-2017 History of Past illness Narrative* Problem Noted Date Diagnosed Date Resolved Date Rectal bleeding 05/17/2016 05/17/2016 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 Elevated prostate specific antigen (PSA) 04/07/2009 04/06/2014 documented as of this encounter (statuses as of 09/29/2022) [address]24-2017 History of Past illness Narrative* Problem Noted Date Diagnosed Date Resolved Date Rectal bleeding 05/17/2016 05/17/2016 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 Elevated prostate specific antigen (PSA) 04/07/2009 04/06/2014 documented as of this encounter (statuses as of 10/01/2022) [address]24-2017 History of Past illness Narrative* Problem Noted Date Diagnosed Date Resolved Date Rectal bleeding 05/17/2016 05/17/2016 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 Elevated prostate specific antigen (PSA) 04/07/2009 04/06/2014 documented as of this encounter (statuses as of 10/05/2022) [facility] History of Past illness Narrative* Problem Noted Date Diagnosed Date Resolved Date Rectal bleeding 05/17/2016 05/17/2016 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 Elevated prostate specific antigen (PSA) 04/07/2009 04/06/2014 documented as of this encounter (statuses as of 10/30/2022) [address]24-2017 History of Past illness Narrative* Problem Noted Date Diagnosed Date Resolved Date Rectal bleeding 05/17/2016 05/17/2016 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 Elevated prostate specific antigen (PSA) 04/07/2009 04/06/2014 documented as of this encounter (statuses as of 11/19/2022) [address]24-2017 History of Past illness Narrative* Problem Noted Date Diagnosed Date Resolved Date Rectal bleeding 05/17/2016 05/17/2016 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 Elevated prostate specific antigen (PSA) 04/07/2009 04/06/2014 documented as of this encounter (statuses as of 12/13/2022) [facility] History of Past illness Narrative* Problem Noted Date Diagnosed Date Resolved Date Rectal bleeding 05/17/2016 05/17/2016 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 Elevated prostate specific antigen (PSA) 04/07/2009 04/06/2014 documented as of this encounter (statuses as of 12/20/2022) [address]24-2017 History of Past illness Narrative* Problem Noted Date Diagnosed Date Resolved Date Rectal bleeding 05/17/2016 05/17/2016 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 Elevated prostate specific antigen (PSA) 04/07/2009 04/06/2014 documented as of this encounter (statuses as of 01/01/2023) [facility] History of Past illness Narrative* Problem Noted Date Diagnosed Date Resolved Date Rectal bleeding 05/17/2016 05/17/2016 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 Elevated prostate specific antigen (PSA) 04/07/2009 04/06/2014 documented as of this encounter (statuses as of 01/26/2023) [facility] History of Past illness Narrative* Problem Noted Date Diagnosed Date Resolved Date Rectal bleeding 05/17/2016 05/17/2016 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 Elevated prostate specific antigen (PSA) 04/07/2009 04/06/2014 documented as of this encounter (statuses as of 03/05/2023) [address]24-2017 History of Past illness Narrative* Problem Noted Date Diagnosed Date Resolved Date Rectal bleeding 05/17/2016 05/17/2016 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 Elevated prostate specific antigen (PSA) 04/07/2009 04/06/2014 documented as of this encounter (statuses as of 03/08/2023) [facility] History of Past illness Narrative* Problem Noted Date Diagnosed Date Resolved Date Rectal bleeding 05/17/2016 05/17/2016 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 Elevated prostate specific antigen (PSA) 04/07/2009 04/06/2014 documented as of this encounter (statuses as of 03/08/2023) [facility] Diagnosis Cough- Primary [facility] Diagnosis Seizure disorder (HCC) Unspecified epilepsy without mention of intractable epilepsy [facility] Diagnosis History of UTI- Primary Personal history of urinary (tract) infection [facility] Diagnosis Essential hypertension- Primary Unspecified essential hypertension Seizure disorder (HCC) Unspecified epilepsy without mention of intractable epilepsy Hyperlipidemia with target LDL less than 130 Other and unspecified hyperlipidemia BARTOLO (obstructive sleep apnea) Obstructive sleep apnea (adult) (pediatric) Hypothyroidism, unspecified type 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 [facility] Diagnosis Nocturia- Primary [facility]* Diagnosis Seizure disorder (HCC) Unspecified epilepsy without mention of intractable epilepsy [facility] Diagnosis Nonintractable epilepsy without status epilepticus, unspecified epilepsy type (HCC)- Primary Cognitive impairment Unspecified persistent 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 BARTOLO (obstructive sleep apnea) Obstructive sleep apnea (adult) (pediatric) [facility] Diagnosis Urinary frequency Benign prostatic hyperplasia with urinary frequency [facility] Diagnosis Thrombocytosis Essential thrombocythemia 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 [facility]* Diagnosis Seizure disorder (HCC) Unspecified epilepsy without mention of intractable epilepsy [facility] Diagnosis Seizure disorder (HCC)- Primary Unspecified epilepsy without mention of intractable epilepsy BARTOLO on CPAP Obstructive sleep apnea (adult) (pediatric) Cognitive impairment Unspecified persistent 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 Elevated blood pressure reading Elevated blood pressure reading without diagnosis of hypertension Unspecified dementia, unspecified severity, without behavioral disturbance, psychotic disturbance, mood disturbance, and anxiety (HCC) [facility] Diagnosis Obstructive sleep apnea (adult) (pediatric)- Primary documented in this encounter [facility] note* Diagnosis Sore throat- Primary Acute pharyngitis Viral URI with cough Acute upper respiratory infections of unspecified site Urinary incontinence, unspecified type documented in this encounter [facility] note* Diagnosis COVID-19- Primary [facility] Diagnosis Rectal bleeding- Primary Hemorrhage of rectum and anus Dizziness Dizziness and giddiness Foot pain, left Pain in limb Thrombocytosis Essential thrombocythemia 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 documented in this encounter [facility] note* Diagnosis External hemorrhoid, thrombosed- Primary External thrombosed hemorrhoids Rectal bleeding Hemorrhage of rectum and anus Personal history of colonic polyps [facility] Diagnosis Sore throat- Primary Acute pharyngitis Post-nasal drainage Unspecified sinusitis (chronic) H/O impacted cerumen Personal history of other disorders of nervous system and sense organs [facility] Diagnosis Urinary frequency Benign prostatic hyperplasia with urinary frequency [facility] Diagnosis Cognitive impairment Unspecified persistent 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 documented in this encounter [facility] note* Diagnosis Loud snoring- Primary Rectal bleeding Hemorrhage of rectum and anus External hemorrhoid, thrombosed External thrombosed hemorrhoids Personal history of colonic polyps [facility] Diagnosis Essential hypertension- Primary Unspecified essential hypertension documented in this encounter [facility] for referral (narrative)* Outpatient Procedure (Routine) - Authorized Specialty Diagnoses / Procedures Referred By Elian seo Referred To Contact [facility] Diagnoses Rectal bleeding External hemorrhoid, thrombosed Personal history of colonic polyps Procedures COLONOSCOPY SCREENING COLONOSCOPY FLX DX W/COLLJ SPEC WHEN PFRMD Dale Guallpa MD [address] [place] [address] [place] [phone] Referral ID Status Reason Start Date Expiration Date Visits Requested Visits Authorized [id number] Authorized Auto-Generat ed Referral 10/01/2022 10/02/2023 1 1 [facility] for referral (narrative)* Outpatient Procedure (Routine) - Closed Specialty Diagnoses / Procedures Referred By Elian seo Referred To Contact [facility] Diagnoses Rectal bleeding External hemorrhoid, thrombosed Personal history of colonic polyps Procedures COLONOSCOPY SCREENING COLONOSCOPY FLX DX W/COLLJ SPEC WHEN Dale Allison MD [address] [place] [address] [place] [phone] Referral ID Status Reason Start Date Expiration Date V isits Requested Visits Authorized [id number] Closed Auto-Generate d Referral 10/01/2022 10/02/2023 1 1 [facility] for visit Narrative* Outpatient Procedure (Routine) - Closed Specialty Diagnoses / Procedures Referred By Elian seo Referred To Contact [facility] Diagnoses Rectal bleeding External hemorrhoid, thrombosed Personal history of colonic polyps Procedures COLONOSCOPY SCREENING COLONOSCOPY FLX DX W/COLLJ SPEC WHEN Dale Allison MD [address] [place] [address] [place] [phone] Referral ID Status Reason Start Date Expiration Date V isits Requested Visits Authorized [id number] Closed Auto-Generate d Referral 10/01/2022 10/02/2023 1 1 [facility] Summary Purpose Family History No Family History Records FoundNo Family History Records FoundNo Family History Records FoundNo Family History Records Found Advance Directives No Advanced Directives Records FoundDocuments on File Type Date Recorded 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 60-74 MINUTES Christine Grace APRN.CENTER DIRECTOR [employer] [address] [place] [address] Referral ID Status Reason Start Date Expiration Date Visits Requested Visits Authorized [id number] Pending Review PCP Requested Referral 09/26/2022 09/26/2023 1 1 Specialty Diagnoses / Procedures Referred By Contac t Referred To Contact Podiatry Diagnoses Foot pain, left Procedures CONSULT TO PODIATRY OFFICE/OUTPATIENT [facility] 60-74 MINUTES Christine Grace APRN.CENTER DIRECTOR [employer] [address] [place] [address] Referral ID Status Reason Start Date Expiration Date Visits Requested Visits Authorized [id number] Pending Review PCP Requested Referral 09/26/2022 09/26/2023 1 1 Medications Administered Section Inactive Administered Medications - up to 3 most recent administrations Medication Order MAR Action Action Date Dose Rate Site diphenhydrAMINE 12.5-50 mg injection (BENADRYL) 12.5-50 mg, INTRAVENOUS, DIRECTED, Starting on Fri11/19/22 at 1230, Until Fri11/19/22 at 1629, DOSING DIRECTED BY PHYSICIAN FOR PROCEDURAL SEDATION ONLY, Intraprocedure Given 11/19/2022 12:56 PM EDT 50 mg fentaNYL 50 mcg/mL 25-100 mcg injection (SUBLIMAZE) 25-100 mcg, INTRAVENOUS, DIRECTED, Starting on Fri11/19/22 at 1230, Until Fri11/19/22 at 1629, DOSING DIRECTED BY PHYSICIAN FOR PROCEDURAL SEDATION ONLY, Intraprocedure Given by LIP 11/19/2022 12:30 PM EDT 25 mcg Additional Source Comments (unrecognized sect ion and content) No Status Records FoundNo Status Records FoundNo Status Records FoundNo Status Records Found INFORMATION SOURCE (unrecogn ized section and content) DATE CREATED AUTHOR AUTHOR'S ORGANIZ ATION 07/01/2020 [facility] DATE CREATED AUTHOR AUTHOR'S ORGANIZ ATION 03/16/2022 [facility] DATE CREATED AUTHOR AUTHOR'S WOLFGANG ATION 03/22/2023 [facility] Source Comments (unrecognize d section and content) In the event this informatio n is protected by the Federal Confidentiality of Alcohol and Drug Abuse Patient Records regulations: The Federal rules restrict any use of the information to criminally investigate or prosecute any alcohol or drug abuse patient.[facility] the event this information is protected by the Federal Confidentiality of Alcohol and Drug Abuse Patient Records regulations: The Federal rules restrict any use of the information to criminally investigate or prosecute any alcohol or drug abuse patient.[facility] the event this information is protected by the Federal Confidentiality of Alcohol and Drug Abuse Patient Records regulations: The Federal rules restrict any use of the information to criminally investigate or prosecute any alcohol or drug abuse patient.[facility] the event this information is protected by the Federal Confidentiality of Alcohol and Drug Abuse Patient Records regulations: The Federal rules restrict any use of the information to criminally investigate or prosecute any alcohol or drug abuse patient.[facility] the event this information is protected by the Federal Confidentiality of Alcohol and Drug Abuse Patient Records regulations: The Federal rules restrict any use of the information to criminally investigate or prosecute any alcohol or drug abuse patient.[facility] the event this information is protected by the Federal Confidentiality of Alcohol and Drug Abuse Patient Records regulations: The Federal rules restrict any use of the information to criminally investigate or prosecute any alcohol or drug abuse patient.[facility] the event this information is protected by the Federal Confidentiality of Alcohol and Drug Abuse Patient Records regulations: The Federal rules restrict any use of the information to criminally investigate or prosecute any alcohol or drug abuse patient.[facility] the event this information is protected by the Federal Confidentiality of Alcohol and Drug Abuse Patient Records regulations: The Federal rules restrict any use of the information to criminally investigate or prosecute any alcohol or drug abuse patient.[facility] the event this information is protected by the Federal Confidentiality of Alcohol and Drug Abuse Patient Records regulations: The Federal rules restrict any use of the information to criminally investigate or prosecute any alcohol or drug abuse patient.[facility] the event this information is protected by the Federal Confidentiality of Alcohol and Drug Abuse Patient Records regulations: The Federal rules restrict any use of the information to criminally investigate or prosecute any alcohol or drug abuse patient.[facility] the event this information is protected by the Federal Confidentiality of Alcohol and Drug Abuse Patient Records regulations: The Federal rules restrict any use of the information to criminally investigate or prosecute any alcohol or drug abuse patient.[facility] the event this information is protected by the Federal Confidentiality of Alcohol and Drug Abuse Patient Records regulations: The Federal rules restrict any use of the information to criminally investigate or prosecute any alcohol or drug abuse patient.[facility] System[facility] the event this information is protected by the Federal Confidentiality of Alcohol and Drug Abuse Patient Records regulations: The Federal rules restrict any use of the information to criminally investigate or prosecute any alcohol or drug abuse patient.[facility] System[facility] the event this information is protected by the Federal Confidentiality of Alcohol and Drug Abuse Patient Records regulations: The Federal rules restrict any use of the information to criminally investigate or prosecute any alcohol or drug abuse patient.[facility] the event this information is protected by the Federal Confidentiality of Alcohol and Drug Abuse Patient Records regulations: The Federal rules restrict any use of the information to criminally investigate or prosecute any alcohol or drug abuse patient.[facility] System[facility] the event this information is protected by the Federal Confidentiality of Alcohol and Drug Abuse Patient Records regulations: The Federal rules restrict any use of the information to criminally investigate or prosecute any alcohol or drug abuse patient.[facility] the event this information is protected by the Federal Confidentiality of Alcohol and Drug Abuse Patient Records regulations: The Federal rules restrict any use of the information to criminally investigate or prosecute any alcohol or drug abuse patient.[facility] the event this information is protected by the Federal Confidentiality of Alcohol and Drug Abuse Patient Records regulations: The Federal rules restrict any use of the information to criminally investigate or prosecute any alcohol or drug abuse patient.[facility] SystemIn the event this information is protected by the Federal Confidentiality of Alcohol and Drug Abuse Patient Records regulations: The Federal rules restrict any use of the information to criminally investigate or prosecute any alcohol or drug abuse patient.[facility] the event this information is protected by the Federal Confidentiality of Alcohol and Drug Abuse Patient Records regulations: The Federal rules restrict any use of the information to criminally investigate or prosecute any alcohol or drug abuse patient.[facility] SystemIn the event this information is protected by the Federal Confidentiality of Alcohol and Drug Abuse Patient Records regulations: The Federal rules restrict any use of the information to criminally investigate or prosecute any alcohol or drug abuse patient.[facility] SystemIn the event this information is protected by the Federal Confidentiality of Alcohol and Drug Abuse Patient Records regulations: The Federal rules restrict any use of the information to criminally investigate or prosecute any alcohol or drug abuse patient.[facility] SystemIn the event this information is protected by the Federal Confidentiality of Alcohol and Drug Abuse Patient Records regulations: The Federal rules restrict any use of the information to criminally investigate or prosecute any alcohol or drug abuse patient.[facility] SystemIn the event this information is protected by the Federal Confidentiality of Alcohol and Drug Abuse Patient Records regulations: The Federal rules restrict any use of the information to criminally investigate or prosecute any alcohol or drug abuse patient.[facility] SystemIn the event this information is protected by the Federal Confidentiality of Alcohol and Drug Abuse Patient Records regulations: The Federal rules restrict any use of the information to criminally investigate or prosecute any alcohol or drug abuse patient.[facility] SystemIn the event this information is protected by the Federal Confidentiality of Alcohol and Drug Abuse Patient Records regulations: The Federal rules restrict any use of the information to criminally investigate or prosecute any alcohol or drug abuse patient.[facility] SystemIn the event this information is protected by the Federal Confidentiality of Alcohol and Drug Abuse Patient Records regulations: The Federal rules restrict any use of the information to criminally investigate or prosecute any alcohol or drug abuse patient.[facility] SystemIn the event this information is protected by the Federal Confidentiality of Alcohol and Drug Abuse Patient Records regulations: The Federal rules restrict any use of the information to criminally investigate or prosecute any alcohol or drug abuse patient.[facility] SystemIn the event this information is protected by the Federal Confidentiality of Alcohol and Drug Abuse Patient Records regulations: The Federal rules restrict any use of the information to criminally investigate or prosecute any alcohol or drug abuse patient.[facility] SystemIn the event this information is protected by the Federal Confidentiality of Alcohol and Drug Abuse Patient Records regulations: The Federal rules restrict any use of the information to criminally investigate or prosecute any alcohol or drug abuse patient.[facility] SystemIn the event this information is protected by the Federal Confidentiality of Alcohol and Drug Abuse Patient Records regulations: The Federal rules restrict any use of the information to criminally investigate or prosecute any alcohol or drug abuse patient.[facility] SystemIn the event this information is protected by the Federal Confidentiality of Alcohol and Drug Abuse Patient Records regulations: The Federal rules restrict any use of the information to criminally investigate or prosecute any alcohol or drug abuse patient.[facility] SystemIn the event this information is protected by the Federal Confidentiality of Alcohol and Drug Abuse Patient Records regulations: The Federal rules restrict any use of the information to criminally investigate or prosecute any alcohol or drug abuse patient.[facility] SystemIn the event this information is protected by the Federal Confidentiality of Alcohol and Drug Abuse Patient Records regulations: The Federal rules restrict any use of the information to criminally investigate or prosecute any alcohol or drug abuse patient.[facility] SystemIn the event this information is protected by the Federal Confidentiality of Alcohol and Drug Abuse Patient Records regulations: The Federal rules restrict any use of the information to criminally investigate or prosecute any alcohol or drug abuse patient.[facility] SystemIn the event this information is protected by the Federal Confidentiality of Alcohol and Drug Abuse Patient Records regulations: The Federal rules restrict any use of the information to criminally investigate or prosecute any alcohol or drug abuse patient.[facility] SystemIn the event this information is protected by the Federal Confidentiality of Alcohol and Drug Abuse Patient Records regulations: The Federal rules restrict any use of the information to criminally investigate or prosecute any alcohol or drug abuse patient.[facility] SystemIn the event this information is protected by the Federal Confidentiality of Alcohol and Drug Abuse Patient Records regulations: The Federal rules restrict any use of the information to criminally investigate or prosecute any alcohol or drug abuse patient.[facility] SystemIn the event this information is protected by the Federal Confidentiality of Alcohol and Drug Abuse Patient Records regulations: The Federal rules restrict any use of the information to criminally investigate or prosecute any alcohol or drug abuse patient.[facility] SystemIn the event this information is protected by the Federal Confidentiality of Alcohol and Drug Abuse Patient Records regulations: The Federal rules restrict any use of the information to criminally investigate or prosecute any alcohol or drug abuse patient.[facility] SystemIn the event this information is protected by the Federal Confidentiality of Alcohol and Drug Abuse Patient Records regulations: The Federal rules restrict any use of the information to criminally investigate or prosecute any alcohol or drug abuse patient.[facility] Reason for Visit (unrecogniz ed section and content) Reason Comments Cough chest congestion x1 month Reason Comments Medication Question Reason Comments Return Call Request Reason Comments Refill Request Reason Comments Physical Reason Comments Follow Up Reason Comments Results Reason Onset Date Comments Refill Request 11/09/2021 Reason Onset Date Comments Refill Request 11/14/2021 Reason Onset Date Comments Refill Request 12/06/2021 Reason Comments Established Patient 6 month follow upPat ient denies any recent seizures and questionable slight improvement in memory.Patient continues to tolerate PAP and having no complaints. States belches multiple times after waking up in mornings. Reason Onset Date Comments patient update 03/08/2022 Reason Onset Date Comments Refill Request 03/23/2022 Reason Onset Date Comments Refill Request 05/16/2022 Reason Comments Report On Cpap Titration CPAP update Reason Comments Nasal Congestion sore throat, fatigue , fever x 3 days Reason Comments Cough Reason Comments Acute Visit rectal bleeding and foot pain Reason Comments Results Labs Reason Comments Consult Rectal bleeding. Specialty Diagnoses / Procedures Referred By Contac t Referred To Contact General Surgery Diagnoses Rectal bleeding Procedures CONSULT TO GENERAL SURGERY OFFICE/OUTPATIENT NEW HIGH MDM 60-74 MINUTES Christine Grace APRN.CENTER DIRECTOR LEAD TEACHER [address] [place] [address] Referral ID Status Reason Start Date Expiration Date Visits Requested Visits Authorized [id number] Pending Review PCP Requested Referral 09/26/2022 09/26/2023 1 1 Reason Comments Patient Question Reason Onset Date Comments Refill Request 10/30/2022 Reason Comments Sore Throat X3 days Reason Onset Date Comments Refill Request 12/24/2022 Reason Comments home visit per WRONG ADDRESS CLERK Reason Comments Opened In Error Reason Comments High blood pressure Care Teams (unrecognized sec tion and content) Assistant To The Vice President Relationship Specialty Start Date End Date Analisa Daigle MD [address] [place], [place] [address] PCP - General Family Practice 11/10/20 Sarah Ferris MD [address] [place] [address] Secretary Book Keeper Endocrinology 11/29/20 Assistant To The Vice President Relationship Specialty Start Date End Date Analisa Daigle MD [address] [place], [place] [id number] PCP - General Family Practice 11/10/20 Sarah Ferris MD [address] [place] [address] Secretary Book Keeper Endocrinology 11/29/20 Assistant To The Vice President Relationship Specialty Start Date End Date Amarilis Pretty III, MD PCP - General Family Practice 06/11/12 11/09/20 Analisa Daigle MD [address] [place] [address] PCP - General Family Practice 11/10/20 Sarah Ferris MD [address] [place] [address] Secretary Book Keeper Endocrinology 11/29/20 Assistant To The Vice President Relationship Specialty Start Date End Date Analisa Daigle MD [address] [place] [address] PCP - General Family Practice 11/10/20 Sarah Ferris MD [address] [place] [address] Secretary Book Keeper Endocrinology 11/29/20 Assistant To The Vice President Relationship Specialty Start Date End Date Analisa Daigle MD [address] [place] [address] PCP - General Family Practice 11/10/20 Sarah Ferris MD [address] [place] [address] Secretary Book Keeper Endocrinology 11/29/20 Assistant To The Vice President Relationship Specialty Start Date End Date Analisa Daigle MD [address] [place] [address] PCP - General Family Practice 11/10/20 Sarah Ferris MD [address] [place] [address] Secretary Book Keeper Endocrinology 11/29/20 Assistant To The Vice President Relationship Specialty Start Date End Date Analisa Daigle MD [address] [place] [address] PCP - General Family Practice 11/10/20 Sarah Ferris MD [address] [place] [address] Secretary Book Keeper Endocrinology 11/29/20 Assistant To The Vice President Relationship Specialty Start Date End Date Analisa Daigle MD [address] [place] [address] PCP - General Family Practice 11/10/20 aSrah Ferris MD [address] [place] [address] Secretary Book Keeper Endocrinology 11/29/20 Assistant To The Vice President Relationship Specialty Start Date End Date Analisa Daigle MD [address] [place] [address] PCP - General Family Practice 11/10/20 Sarah Ferris MD [address] [place] [address] Secretary Book Keeper Endocrinology 11/29/20 Assistant To The Vice President Relationship Specialty Start Date End Date Analisa Daigle MD [address] [place] [address] PCP - General Family Medicine 11/10/20 Sarah Ferris MD [address] [place] [address] Secretary Book Keeper Endocrinology 11/29/20 Assistant To The Vice President Relationship Specialty Start Date End Date Analisa Daigle MD [address] [place] [address] PCP - General Family Medicine 11/10/20 Sarah Ferris MD [address] [place] [address] Secretary Book Keeper Endocrinology 11/29/20 Assistant To The Vice President Relationship Specialty Start Date End Date Analisa Daigle MD [address] [place] [address] PCP - General Family Medicine 11/10/20 Sarah Ferris MD [address] [place] [address] Secretary Book Keeper Endocrinology 11/29/20 Assistant To The Vice President Relationship Specialty Start Date End Date Analisa Daigle MD [address] [facility] [place] [address] PCP - General Family Medicine 11/10/20 Sarah Ferris MD [address] [place] [address] Secretary Book Keeper Endocrinology 11/29/20 Assistant To The Vice President Relationship Specialty Start Date End Date Analisa Daigle MD [address] [place] [address] PCP - General Family Medicine 11/10/20 Sarah Ferris MD [address] [place] [address] Secretary Book Keeper Endocrinology 11/29/20 Assistant To The Vice President Relationship Specialty Start Date End Date Analisa Daigle MD [address] [place] [address] PCP - General Family Medicine 11/10/20 Sarah Ferris MD [address] [place] [address] Secretary Book Keeper Endocrinology 11/29/20 Assistant To The Vice President Relationship Specialty Start Date End Date Analisa Daigle MD [address] [place] [address] PCP - General Family Medicine 11/10/20 Sarah Ferris MD [address] [place] [address] Secretary Book Keeper Endocrinology 11/29/20 Assistant To The Vice President Relationship Specialty Start Date End Date Analisa Daigle MD [address] [place] [address] PCP - General Family Medicine 11/10/20 Sarah Ferris MD [address] [place] [place] [address] Secretary Book Keeper Endocrinology 11/29/20 Assistant To The Vice President Relationship Specialty Start Date End Date Analisa Daigle MD [address] [place] [address] PCP - General Family Medicine 11/10/20 Sarah Ferris MD [address] [place] [address] Secretary Book Keeper Endocrinology 11/29/20 Assistant To The Vice President Relationship Specialty Start Date End Date Analisa Daigle MD [address] [place] [address] PCP - General Family Medicine 11/10/20 Sarah Ferris MD [address] [place] [address] Secretary Book Keeper Endocrinology 11/29/20 Assistant To The Vice President Relationship Specialty Start Date End Date Analisa Daigle MD [address] [place] [address] PCP - General Family Medicine 11/10/20 Sarah Ferris MD [address] [place] [address] Secretary Book Keeper Endocrinology 11/29/20 Assistant To The Vice President Relationship Specialty Start Date End Date Analisa Daigle MD [address] [place] [address] PCP - General Family Medicine 11/10/20 Sarah Ferris MD [address] [place], [place] [address] Secretary Book Keeper Endocrinology 11/29/20 Assistant To The Vice President Relationship Specialty Start Date End Date Analisa Daigle MD [address] [place], [place] [address] PCP - General Family Medicine 11/10/20 Sarah Ferris MD [address] [place], [place] [address] Secretary Book Keeper Endocrinology 11/29/20 Assistant To The Vice President Relationship Specialty Start Date End Date Analisa Daigle MD [address] [place], [place] [address] PCP - General Family Medicine 11/10/20 Sarah Ferris MD [address] [place] [address] Secretary Book Keeper Endocrinology 11/29/20 Assistant To The Vice President Relationship Specialty Start Date End Date Analisa Daigle MD [address] [place], [place] [address] PCP - General Family Medicine 11/10/20 Sarah Ferris MD [address] [place] [address] Secretary Book Keeper Endocrinology 11/29/20 Assistant To The Vice President Relationship Specialty Start Date End Date Analisa Daigle MD [address] [place] [address] PCP - General Family Medicine 11/10/20 Sarah Ferris MD [address] [place] [address] Secretary Book Keeper Endocrinology 11/29/20 Assistant To The Vice President Relationship Specialty Start Date End Date Analisa Daigle MD [address] [place] [address] PCP - General Family Medicine 11/10/20 Sarah Ferris MD [address] [place], [place] [id number] Secretary Book Keeper Endocrinology 11/29/20 Assistant To The Vice President Relationship Specialty Start Date End Date Analisa Daigle MD [address] [place], [place] [address] PCP - General Family Medicine 11/10/20 Sarah Ferris MD [address] [place] [address] Secretary Book Keeper Endocrinology 11/29/20 Assistant To The Vice President Relationship Specialty Start Date End Date Analisa Daigle MD [address] [place] [address] PCP - General Family Medicine 11/10/20 Sarah Ferris MD [address] [place] [address] Secretary Book Keeper Endocrinology 11/29/20 Assistant To The Vice President Relationship Specialty Start Date End Date Analisa Daigle MD [address] [place], [place] [address] PCP - General Family Medicine 11/10/20 Sarah Ferris MD [address] [place] [address] Secretary Book Keeper Endocrinology 11/29/20 Assistant To The Vice President Relationship Specialty Start Date End Date Analisa Daigle MD [address] [place] [address] PCP - General Family Medicine 11/10/20 Sarah Ferris MD [address] [place] [address] Secretary Book Keeper Endocrinology 11/29/20 FOR RECORDS PERTAINING TO PATIENTS WHO ARE OR HAVE BEEN ENROLLED IN A CHEMICAL DEPENDENCY/SUBSTANCEABUSE PROGRAM, SOME INFORMATION MAY BE OMITTED. This clinical summary was aggregated from multiple sources. Caution should be exercised in using it in the provision of clinical care. This summary normalizes information from multiple sources, and as a consequence, information in this document may materially change the coding, format and clinical context of patient data. In addition, data may be omitted in some cases. CLINICAL DECISIONS SHOULD BE BASED ON THE PRIMARY CLINICAL RECORDS. [email or web address] provides no warranty or guarantee of the accuracy or completeness of information in this document.
[2023-03-31 15:58] LABS: Vitamin D,25 Hydroxy 69.4 ng/mL
[2023-03-31 16:05] LABS: Anion Gap 3 (5-15); BUN 36 mg/dL (7-18); BUN/Creat Ratio 29.3 RATIO (10-20); Calcium,Total 8.7 mg/dL (8.5-10.1); Chloride 109 mmol/L (98-107); Creatinine, Serum 1.23 mg/dL (0.70-1.30); EST Glomerular Filtration Rate 60 mL/min (>60); Est Glom Filt Rate - Afr Amer 73 mL/min (>60); Glucose 131 mg/dL (74-106); Potassium 4.7 mmol/L (3.5-5.1); Sodium Level 140 mmol/L (136-145); Thyroid Stim Hormone (TSH) 3.93 uIU/mL (0.358-3.74)
== END | disposition home or self-care (01) ==
LOC: LAB 14:31
PROVIDERS: PCP Family Medicine; Referring Provider Internal Medicine Endocrinology, Diabetes & Metabolism; Visit Provider Internal Medicine Endocrinology, Diabetes & Metabolism
DX: E03.8 Other specified hypothyroidism (principal); E55.9 Vitamin D deficiency, unspecified
CPT/HCPCS: 36415; 80048; 82306; 84443

== ENCOUNTER 2023-04-01 00:30 | Emergency (ER) | payer MEDICARE, SELFPAY ==
[2023-04-01 00:31] VITALS: BP 224/86; PULSE 75; RESP 16; TEMP 36.2; O2SAT 99; BMI 31.1
--- NOTE | 2023-04-01 01:15 | EKG12_ITS ---
Test Reason : DYSRHYTHMIA Blood Pressure : / mmHG Vent. Rate : 053 BPM Atrial Rate : 053 BPM P-R Int : 312 ms QRS Dur : 114 ms QT Int : 436 ms P-R-T Axes : 045 -50 044 degrees QTc Int : 409 ms Sinus bradycardia with 1st degree A-V block Left anterior fascicular block Abnormal ECG Confirmed by CODY MACHADO, SUKUMAR ([id number]), photographic editor JULIA BAEZA ([id number]) on 04/01/2023 10:11:49 AM Referred By: Confirmed By:SUKUMAR ROSS MD
[2023-04-01 01:26] LABS: Absolute Lymphocyte Count 0.88 X10^3/uL (0.83-4.51); Absolute Neutrophil Count 3.1 X10^3/uL (2.0-7.7); Basophil# 0.07 X10^3/uL; Basophil% 1.6 % (0-1); Eosinophil# 0.05 X10^3/uL; Eosinophils% 1.1 % (0-5); Hematocrit 43.4 % (40-54); Hemoglobin 14.6 g/dL (13.0-16.5); Lymphocyte # 0.88 X10^3/ul (0.83-4.51); Lymphocyte % 19.7 % (19-41); Mean Corp Hgb Conc 33.6 g/dL (32-36); Mean Corpuscular Hgb 37.6 pg (27.0-32.0); Mean Corpuscular Volume 111.9 fL (80-94); Mean Platelet Vol. 8.6 fl (6.2-12.0); Monocyte# 0.35 X10^3/uL; Monocyte% 7.8 % (0-10); NRBC Flagged by Analyzer 0 % (0-5); Neutrophil # 3.11 X10^3/uL (2.7-7.7); Neutrophil % 69.6 % (47-70); Platelet Count 507 K/mm3 (150-450); RBC Distribution Width CV 14.7 % (11.6-14.6); RBC Distribution Width SD 60.8 fl (35.1-43.9); Red Blood Count 3.88 M/mm3 (4.6-6.2); White Blood Count 4.5 K/mm3 (4.4-11.0)
[2023-04-01 01:30] VITALS: BP 157/66; PULSE 57; RESP 15; O2SAT 98
[2023-04-01 01:35] LABS: International Normalized Ratio 1.4; Prothrombin Time (Protime)PT. 17.1 SECONDS (11.7-14.9)
[2023-04-01 01:36] LABS: Partial Thromboplast Time 37.9 Seconds (24.1-36.2)
[2023-04-01 01:41] LABS: Anion Gap 3 (5-15); BUN 36 mg/dL (7-18); BUN/Creat Ratio 30.3 RATIO (10-20); Calcium,Total 9.3 mg/dL (8.5-10.1); Chloride 109 mmol/L (98-107); Creatinine, Serum 1.19 mg/dL (0.70-1.30); EST Glomerular Filtration Rate 62 mL/min (>60); Est Glom Filt Rate - Afr Amer 75 mL/min (>60); Estimated Creatinine Clearance 50.27 ml/min; Glucose 105 mg/dL (74-106); Potassium 4.5 mmol/L (3.5-5.1); Sodium Level 139 mmol/L (136-145)
--- NOTE | 2023-04-01 01:46 | CT_ITS ---
INDICATION: hypertension, headache EXAMINATION: CT BRAIN - CT Head or Brain W/O Contrast Injection TECHNIQUE: Multiple axial images were obtained of the head with sagittal and coronal reconstructed images. Individualized dose optimization techniques were used for this CT. IV contrast dosage and agent: None. COMPARISON: None. FINDINGS: BRAIN PARENCHYMA: No evidence of an acute infarct or intracranial hemorrhage. No evidence of a mass. White matter changes consistent with mild chronic microvascular disease. Small chronic right frontal lobe infarct. CSF SPACES: The ventricles, sulci and subarachnoid cisterns are appropriate for age. CALVARIUM, SKULL BASE, PARANASAL SINUSES AND MASTOID AIR CELLS: No fracture. Mastoid air cells are clear. Visualized paranasal sinuses are unremarkable. ORBITS: The globes, extraocular muscles, optic nerves and retrobulbar fat are unremarkable. CT/Brain/Head without Contrast IMPRESSION: No acute intracranial abnormality. Electronically Signed: Dennys Hernandez DO at 2:45 EST ,
--- NOTE | 2023-04-01 01:46 | EX.ED.DYSGE1 ---
HPI History of Present Illness Chief Complaint: Hypertension Narrative Narrative: 82-year-old male, past medical history of hypertension, presents with lightheadedness and dizziness mild headache that he experienced when he woke up this evening. He relates history that a few weeks ago he was seen in the emergency department for elevated blood pressure. He has been following up with his primary care provider and other people in the office who have been rearranging his medications. He used to take lisinopril/hydrochlorothiazide 20/25 twice a day. However, he states that his primary care provider did not like him taking that much diuretic so they changed it to 20 over 12-1/2 mg twice a day. Recently, he has been keeping a log of his blood pressures and it has been 170 systolic at its highest/in the 170s. They did add amlodipine 5 mg to his antihypertensive regimen. This morning when he woke up to go to the bathroom, he felt very lightheaded and had pain on the right side of his head as well. He states that Friday morning, he felt the same way but this morning it was worse. He took his blood pressure and it was elevated at 196/96. He denies any chest pain. He was nauseated but feels vastly improved because he was told that when this happens that he should take another one of his medications. [facility] Medical History LI (acute kidney injury) (08/13/19) COVID-19 (08/13/19) Elevated troponin I level Essential (primary) hypertension History of non-ST elevation myocardial infarction (NSTEMI) (08/13/19) Hypothyroidism Myeloproliferative neoplasm BARTOLO (obstructive sleep apnea) Renal calculi SARS-associated coronavirus infection (08/13/19) Seizures Thrombocythemia, essential Home Medications hydroxyurea 500 mg capsule 1,000 mg PO DAILY Check with primary doctor 08/12/19 [History Last Taken 08/12/19] aspirin 81 mg chewable tablet 81 mg PO DAILY@1000 09/01/19 [Rx Last Taken Unknown] ergocalciferol (vitamin D2) 1,250 mcg (50,000 unit) capsule 50,000 unit PO QWEEK 04/13/20 [History Last Taken Unknown] thiamine HCl (vitamin B1) 250 mg tablet (Vitamin B-1) 500 mg PO DAILY 04/13/20 [History Last Taken Unknown] tamsulosin 0.4 mg capsule 0.4 mg PO DAILY 10/11/20 [History Last Taken Unknown] memantine 5 mg tablet 5 mg PO DAILY 10/09/21 [History Last Taken Unknown] phenytoin sodium extended 30 mg capsule (Dilantin) 30 mg PO Q12H 10/09/21 [History Last Taken Unknown] levothyroxine 150 mcg capsule 150 mcg PO DAILY 10/15/22 [History Last Taken Unknown] phenytoin sodium extended 100 mg capsule 100 mg PO Q12H seizures 10/15/22 [History Last Taken Unknown] amlodipine 5 mg tablet 5 mg PO DAILY 04/01/23 [History Last Taken Unknown] levothyroxine 150 mcg tablet 150 mcg PO DAILY 04/01/23 [History Last Taken Unknown] lisinopril 20 mg-hydrochlorothiazide 12.5 mg tablet 2 tab PO DAILY 04/01/23 [History Last Taken Unknown] Allergy/AdvReac Type Severity Reaction Status Date / Time No Known Allergies Allergy Verified 04/01/23 00:35 Family History Brother Heart disease, Onset Age: 69 AVR Surgical History Status post insertion of dialysis catheter (08/19/19) Social History Smoking Status: Never smoker ROS ROS ED ROS Narrative Constitutional: No fever, no chills. HEENT: No sore throat. No neck pain. No loss of vision. No rhinorrhea. Cardiovascular: No chest pain. No palpitations. No pedal edema. Respiratory: No cough, no shortness of breath. Abdominal: No abdominal pain. Positive nausea. No vomiting. Genitourinary: No dysuria. No hematuria. Musculoskeletal: No myalgias. No arthralgias. Neurologic: Right-sided headaches. Positive lightheadedness, positive dizziness. Skin: No rash. No change in color. Psychiatric: No depression. No anxiety. EXAM Physical Exam Narrative Exam Narrative: Afebrile. Vital signs noted. HEENT: Normocephalic. Atraumatic. PERRL, EOMI. Neck soft and supple. No point tenderness or step off. Cardiovascular: Regular rate and rhythm. No murmurs, rubs, or gallops appreciated. Respiratory: No tachypnea. Lungs clear to auscultation bilaterally. Gastrointestinal: Abdomen soft, nontender, with normoactive bowel sounds. No rebound or guarding. Neurological: Awake. Alert. Nonfocal, nonlateralizing. Skin: No rash. Normal color. No pallor. Musculoskeletal: No pedal edema. Full range of motion extremities. Const Vital Signs: 04/01/23 00:31 04/01/23 00:34 04/01/23 01:15 Temperature 97.2 F L Temperature Source Temporal Pulse Rate 75 Respiratory Rate 16 Respiratory Effort Normal Non-Labored Respiratory Pattern Normal Blood Pressure 224/86 H Blood Pressure Mean 132 Pulse Ox 99 Oxygen Delivery Method Room Air Room Air 04/01/23 01:30 04/01/23 02:00 Temperature Temperature Source Pulse Rate 57 L 49 L Respiratory Rate 15 14 Respiratory Effort Respiratory Pattern Blood Pressure 157/66 H 165/62 H Blood Pressure Mean 96 96 Pulse Ox 98 97 Oxygen Delivery Method Room Air Room Air MDM MDM MDM Narrative Medical decision making narrative: In the differential diagnosis is hypertensive intracranial hemorrhage versus hypertensive encephalopathy/hyper tensive urgency. He may be dehydrated and as he is on hydrochlorothiazide/diuretic he may have hypokalemia/dehydration. Comprehensive workup was pursued. EKG was obtained and interpreted by myself independently as sinus bradycardia at 53 bpm without ectopy or acute ST changes. No STEMI. I reviewed his laboratory work and he has a normal white count of 4.5, hemoglobin 14.6 with hematocrit 43.4, platelet count slightly elevated at 507 which I think is nonspecific. INR was obtained and is normal at 1.4. Sodium normal at 139 with potassium 4.5, chloride slightly elevated at 109 which I think is nonspecific. BUN slightly elevated at 36 with creatinine normal at 1.19. He may be minimally dehydrated. Glucose normal at 105. High-sensitivity troponin is 13. This is around her lower than his baseline. I do not feel that he requires serial enzymes as he states he was dizzy and lightheaded with elevated blood pressure over [address] of the brain was obtained and reviewed by myself independently and shows no evidence of acute process, no hemorrhage, I reviewed the neurology report which shows no acute intracranial abnormality. Upon repeat examination, his blood pressure has been low as 157 systolic. This is without intervention here in the emergency department. Given his labile blood pressure, I do feel that his been adequately lowered. I feel he be discharged to follow-up with his primary care physician. States he also sees Dr. Garrett. I did discuss with him that he may have maxed out on his lisinopril at 40 mg as he takes 20 mg twice a day, and that he might need to start taking his amlodipine which was prescribed to him. Regardless, he will continue to keep a log of his blood pressures and follow-up with his primary care physician. Return instructions to the emergency department were reviewed. Disposition is discharged home in stable condition. History & Record Review Discussion w/independent historian: Patient Additional record(s) reviewed:: Prior ED visit Lab Data Attestation: I reviewed the patient's lab results. Labs: Laboratory Results - last 24 hr 04/01/23 00:55 WBC 4.5 RBC 3.88 L Hgb 14.6 Hct 43.4 MCV 111.9 H MCH 37.6 H MCHC 33.6 RDW Std Deviation 60.8 H RDW Coeff of Nacho 14.7 H Plt Count 507 H MPV 8.6 Immature Gran % (Auto) 0.200 Neut % (Auto) 69.6 Lymph % (Auto) 19.7 [place] % (Auto) 7.8 Eos % (Auto) 1.1 Baso % (Auto) 1.6 H Absolute Neuts (auto) 3.1 Absolute Lymphs (auto) 0.88 Nucleated RBC % 0 PT 17.1 H INR 1.4 APTT 37.9 H Sodium 139 Potassium 4.5 Chloride 109 H Carbon Dioxide 27.0 Anion Gap 3 L BUN 36 H Creatinine 1.19 Estim Creat Clear Calc 50.27 Est GFR (MDRD) Af Amer 75 Est GFR (MDRD) Non-Af 62 BUN/Creatinine Ratio 30.3 H Glucose 105 Calcium 9.3 Troponin I High Sens 13 Radiography Diagnostic Testing: Clinical Impression(s) from Imaging Studies Brain CT 04/01/23 01:46 IMPRESSION: No acute intracranial abnormality. Electronically Signed: Dennys Hernandez DO at 2:45 EST , Chest X-Ray 04/01/23 01:52 IMPRESSION: No evidence of acute cardiopulmonary disease. Electronically Signed: Dennys Hernandez DO at 2:36 EST , Discharge Plan Triage Chief Complaint: Hypertension ED Provider: Uziel Barnhart Dx/Rx/DC Orders Clinical Impression: Labile blood pressure, Lightheadedness, Essential (primary) hypertension Instructions: ED Dizziness, Uncertain Cause, ED High Blood Pressure Hypertension Prescriptions: No Action thiamine HCl (vitamin B1) [Vitamin B-1] 250 mg tablet 500 mg PO DAILY ergocalciferol (vitamin D2) 1,250 mcg (50,000 unit) capsule 50,000 unit PO QWEEK tamsulosin 0.4 mg capsule 0.4 mg PO DAILY memantine 5 mg tablet 5 mg PO DAILY Patient Comments: TAKE 1 TABLET BY MOUTH ONCE DAILY Dilantin 30 mg capsule 30 mg PO Q12H Patient Comments: TAKES 130 MG BID levothyroxine 150 mcg capsule 150 mcg PO DAILY Hold Instructions: Duplicate Order phenytoin sodium extended 100 mg capsule 100 mg PO Q12H Patient Comments: TAKES 130 MG BID hydroxyurea 500 MG capsule 1,000 mg PO DAILY aspirin 81 MG tablet,chewable 81 mg PO DAILY@1000 0RF levothyroxine 150 mcg tablet 150 mcg PO DAILY lisinopril-hydrochlorothiazide 20-12.5 mg tablet 2 tab PO DAILY amlodipine 5 mg tablet 5 mg PO DAILY Primary Care Provider: Nimesh Daigle Referrals: Jose Nova MD [Med Staff - Active Staff] - As soon as possible Nimesh Daigle MD [Primary Care Provider] - 1 Day Activity Restrictions/Additional Instructions: Your antihypertensive medications as previously directed. Call your primary care provider and let them know you are seen in the emergency department for elevated blood pressure. Disposition Disposition: Home, Self Care
--- NOTE | 2023-04-01 01:52 | RAD_ITS ---
INDICATION: Stroke EXAMINATION/TECHNIQUE: X-RAY - XR Chest 1 View COMPARISON: 01/10/2023. FINDINGS: LINES/DEVICES: None. LUNGS: No consolidation or evidence of an effusion. No evidence of edema or a pneumothorax. MEDIASTINUM AND CARDIOVASCULAR STRUCTURES: Cardiac silhouette is normal in size and contour. Mediastinum is unremarkable. BONES AND SOFT TISSUES: No acute abnormality. RAD/Chest 1 View (Portable) IMPRESSION: No evidence of acute cardiopulmonary disease. Electronically Signed: Dennys Hernandez DO at 2:36 EST ,
[2023-04-01 02:00] VITALS: BP 165/62; PULSE 49; RESP 14; O2SAT 97
--- OUTSIDE RECORDS SUMMARY | 2023-04-01 02:13 | XMS RPT_ITS | CCD ---
Author Name Unknown Address [address] [place] [address] Organization [facility] Care Team Providers Care Feed Weigher Name Role Phone Analisa Daigle MD Primary [...] 67 mm[Hg] Weston Isbell MD Work Phone: [facility] 03-08-2023 11:17-0500 Heart rate 49 /min Weston Isbell MD Work Phone: [facility] 03-08-2023 11:17-0500 Systolic blood pressure 146 mm[Hg] Weston Isbell MD Work Phone: [facility] 03-08-2023 11:03-0500 Body weight 100.34 kg Weston Isbell MD Work Phone: [facility] 03-08-2023 11:03-0500 Respiratory rate 16 /min Weston Isbell MD Work Phone: [facility] 03-08-2023 11:03-0500 SaO2% (BldA) [Mass fraction] 98 % Weston Isbell MD Work Phone: [facility] 12-12-2022 11:17-0400 Body temperature 97.39 [degF] Hawa Steele RN LICENSED PRACTICAL.FINANCIAL COACH Work Phone: [facility] 12-12-2022 11:17-0400 Body weight 98.52 kg Hawa Cedric RN LICENSED PRACTICAL.FINANCIAL COACH Work Phone: [facility] 12-12-2022 11:17-0400 Diastolic blood pressure 78 mm[Hg] Hawa Cedric RN LICENSED PRACTICAL.FINANCIAL COACH Work Phone: [facility] 12-12-2022 11:17-0400 Heart rate 54 /min Hawa Cedric RN LICENSED PRACTICAL.FINANCIAL COACH Work Phone: [facility] 12-12-2022 11:17-0400 Respiratory rate 18 /min Hawa Cedric RN LICENSED PRACTICAL.FINANCIAL COACH Work Phone: [facility] 12-12-2022 11:17-0400 SaO2% (BldA) [Mass fraction] 99 % Hawa Cedric RN LICENSED PRACTICAL.FINANCIAL COACH Work Phone: [facility] 12-12-2022 11:17-0400 Systolic blood pressure 157 mm[Hg] Hawa Cedric RN LICENSED PRACTICAL.FINANCIAL COACH Work Phone: [facility] 11-19-2022 14:01-0400 Diastolic blood pressure 81 mm[Hg] Dale Guallpa MD Work Phone: [facility] 11-19-2022 14:01-0400 Heart rate 50 /min Dale Guallpa MD Work Phone: [facility] 11-19-2022 14:01-0400 Respiratory rate 16 /min Dale Guallpa MD Work Phone: [facility] 11-19-2022 14:01-0400 SaO2% (BldA) [Mass fraction] 100 % Dale Guallpa MD Work Phone: [facility] 11-19-2022 14:01-0400 Systolic blood pressure 196 mm[Hg] Dale Guallpa MD Work Phone: [facility] 11-19-2022 11:09-0400 Body temperature 98.6 [degF] Dale Guallpa MD Work Phone: [facility] 10-01-2022 08:26-0400 Body height 177.8 cm Dale Guallpa MD Work Phone: [facility] 10-01-2022 08:26-0400 Body temperature 97.3 [degF] Dale Guallpa MD Work Phone: [facility] 10-01-2022 08:26-0400 Body weight 98.34 kg Dale Guallpa MD Work Phone: [facility] 10-01-2022 08:26-0400 Diastolic blood pressure 72 mm[Hg] Dale Guallpa MD Work Phone: [facility] 10-01-2022 08:26-0400 Heart rate 59 /min Dale Guallpa MD Work Phone: [facility] 10-01-2022 08:26-0400 SaO2% (BldA) [Mass fraction] 99 % Dale Guallpa MD Work Phone: [facility] 10-01-2022 08:26-0400 Systolic blood pressure 140 mm[Hg] Dale Guallpa MD Work Phone: [facility] 09-26-2022 10:53-0400 Body weight 98.43 kg Christine Espinalhof RN LICENSED PRACTICAL.FINANCIAL COACH Work Phone: [facility] 09-26-2022 10:53-0400 Diastolic blood pressure 70 mm[Hg] Christine Espinalhof RN LICENSED PRACTICAL.FINANCIAL COACH Work Phone: [facility] 09-26-2022 10:53-0400 Heart rate 51 /min Christine Espinalhof RN LICENSED PRACTICAL.FINANCIAL COACH Work Phone: [facility] 09-26-2022 10:53-0400 Respiratory rate 16 /min Christine Espinalhof RN LICENSED PRACTICAL.FINANCIAL COACH Work Phone: [facility] 09-26-2022 10:53-0400 SaO2% (BldA) [Mass fraction] 98 % Christinericardo Espinalhof RN LICENSED PRACTICAL.FINANCIAL COACH Work Phone: [facility] 09-26-2022 10:53-0400 Systolic blood pressure 136 mm[Hg] Christine Espinalhof RN LICENSED PRACTICAL.FINANCIAL COACH Work Phone: [facility] 07-22-2022 14:39-0400 Body temperature 99.61 [degF] Francesca Vasquez RN LICENSED PRACTICAL.FINANCIAL COACH Work Phone: [facility] 07-22-2022 14:39-0400 Body weight 100.25 kg Francesca Vasquez RN LICENSED PRACTICAL.FINANCIAL COACH Work Phone: [facility] 07-22-2022 14:39-0400 Diastolic blood pressure 68 mm[Hg] Francesca Praisler-Wood RN LICENSED PRACTICAL.FINANCIAL COACH Work Phone: [facility] 07-22-2022 14:39-0400 Heart rate 72 /min Francesca Praisler-Wood RN LICENSED PRACTICAL.FINANCIAL COACH Work Phone: [facility] 07-22-2022 14:39-0400 Respiratory rate 16 /min Francesca Praisler-Wood RN LICENSED PRACTICAL.FINANCIAL COACH Work Phone: [facility] 07-22-2022 14:39-0400 SaO2% (BldA) [Mass fraction] 97 % Francesca Praisler-Wood RN LICENSED PRACTICAL.FINANCIAL COACH Work Phone: [facility] 07-22-2022 14:39-0400 Systolic blood pressure 120 mm[Hg] Francesca Praisler-Wood RN LICENSED PRACTICAL.[facility] Work Phone: [facility] 05-31-2022 15:28-0500 Body temperature 97.59 [degF] Ant Horta Jr., MD Work Phone: [facility] 05-31-2022 15:28-0500 Body weight 100.25 kg Ant Horta Jr., MD Work Phone: [facility] 05-31-2022 15:28-0500 Diastolic blood pressure 76 mm[Hg] Ant Horta Jr., MD Work Phone: [facility] 05-31-2022 15:28-0500 Heart rate 55 /min Ant Horta Jr., MD Work Phone: [facility] 05-31-2022 15:28-0500 Respiratory rate 18 /min Ant Horta Jr., MD Work Phone: [facility] 05-31-2022 15:28-0500 SaO2% (BldA) [Mass fraction] 99 % Ant Horta Jr., MD Work Phone: [facility] 05-31-2022 15:28-0500 Systolic blood pressure 163 mm[Hg] Ant Horta Jr., MD Work Phone: [facility] 12-10-2021 15:23-0400 Body weight 95.25 kg Ant Horta Jr., MD Work Phone: [facility] 12-10-2021 15:23-0400 Diastolic blood pressure 69 mm[Hg] Ant Horta Jr., MD Work Phone: [facility] 12-10-2021 15:23-0400 Heart rate 50 /min Ant Horta Jr., MD Work Phone: [facility] 12-10-2021 15:23-0400 Respiratory rate 16 /min Ant Horta Jr., MD Work Phone: [facility] 12-10-2021 15:23-0400 SaO2% (BldA) [Mass fraction] 98 % Ant Horta Jr., MD Work Phone: [facility] 12-10-2021 15:23-0400 Systolic blood pressure 137 mm[Hg] Ant Horta Jr., MD Work Phone: [facility] 10-04-2021 15:06-0400 Body height 177.8 cm Shawn Crowder MD Work Phone: [facility] 10-04-2021 15:06-0400 Body weight 97.07 kg Shawn Crowder MD Work Phone: [facility] 10-04-2021 15:06-0400 Diastolic blood pressure 62 mm[Hg] Shawn Crowder MD Work Phone: [facility] 10-04-2021 15:06-0400 Systolic blood pressure 130 mm[Hg] Shawn Crowdre MD Work Phone: [facility] 09-27-2021 14:26-0400 Body height 177.8 cm Analisa Daigle MD Work Phone: [facility] 09-27-2021 14:26-0400 Body weight 97.07 kg Analisa Daigle MD Work Phone: [facility] 09-27-2021 14:26-0400 Diastolic blood pressure 78 mm[Hg] Analisa Daigle MD Work Phone: [facility] 09-27-2021 14:26-0400 Heart rate 66 /min Analisa Daigle MD Work Phone: [facility] 09-27-2021 14:26-0400 Respiratory rate 16 /min Analisa Daigle MD Work Phone: [facility] 09-27-2021 14:26-0400 Systolic blood pressure 138 mm[Hg] Analisa Daigle MD Work Phone: [facility] 06-27-2021 10:26-0400 Body temperature 97.81 [degF] Carmina Athy PA-C Work Phone: [facility] 06-27-2021 10:26-0400 Body weight 99.52 kg Carmina Athy PA-C Work Phone: [facility] 06-27-2021 10:26-0400 Diastolic blood pressure 64 mm[Hg] Carmina Athy PA-C Work Phone: [facility] 06-27-2021 10:26-0400 Heart rate 55 /min Carmina Athy PA-C Work Phone: [facility] 06-27-2021 10:26-0400 Respiratory rate 20 /min Carmina Athy PA-C Work Phone: [facility] 06-27-2021 10:26-0400 SaO2% (BldA) [Mass fraction] 99 % Carmina Athy PA-C Work Phone: [facility] 06-27-2021 10:26-0400 Systolic blood pressure 128 mm[Hg] Carmina Athy PA-C Work Phone: [facility] Encounters Encounter Date Encounter Type Care Provider Facility Start: 03-21-2023 End: 03-21-2023 ambulatory ANALISA DAIGLE Facility:[facility] Start: 03-08-2023 End: 03-08-2023 ambulatory Mica Holbrook RN NURSE SOCIAL WORK PROFESSOR Procedures Date Procedure Procedure Detail Performing Clinician Start: 12-12-2022 STREP A MOLECULAR (POC) Carmina Mike Athy PA-C Work Phone: Start: 11-19-2022 Colonoscopy flx dx w /collj spec when pfrmd Dale Guallpa MD Work Phone: Start: 07-22-2022 COVID WITH FLUA+B, ROUTINE Francesca Vasquez APRN.FINANCIAL COACH Work Phone: Start: 07-22-2022 Urnls dip stick/tabl et rgnt auto w/o microscopy Francesca Vasquez RN LICENSED PRACTICAL.FINANCIAL COACH Work Phone: Start: 07-22-2022 STREP A MOLECULAR (POC) Francesca Vasquez RN LICENSED PRACTICAL.FINANCIAL COACH Work Phone: Start: 09-27-2021 Adult depression scr eening assessment Analisa Daigle MD Work Phone: Start: 12-16-2019 Adult depression scr eening assessment Ant Horta Jr., MD Work Phone: Plan of Treatment Date Care Activity Detail Author Start: 10-07-2032 Urine microalbumin profile DTaP,Tdap,Td Vaccine (2 - Td or Tdap) [facility] Start: 09-26-2025 DIABETES SCREEN DIABETES SCREEN [facility] Start: 09-26-2025 Diabetes Screening Diabetes Screening [facility] Start: 05-31-2025 DIABETES SCREEN DIABETES SCREEN [facility] Start: 09-21-2024 DIABETES SCREEN DIABETES SCREEN [facility] Start: 05-11-2024 DIABETES SCREEN DIABETES SCREEN [facility] Start: 11-22-2022 Covid-19 Vaccine ( season) Covid-19 Vaccine () [facility] Start: 11-22-2022 Influenza vaccination [facility] Start: 09-27-2022 Adult depression screening assessment DEPRESSION SCREENING [facility] Start: 09-27-2022 ANNUAL PCP TEAM CHRONIC DISEASE VISIT ANNUAL PCP TEAM CHRONIC DISEASE VISIT [facility] Start: 09-26-2022 End: 11-26-2022 Comprehensive metabolic 2000 panel - Serum or Plasma [facility] Work Phone: Immunizations Immunization Date Immunization Notes Care Provider Fa cility 03-03-2023 influenza, high dose seasonal, preservative-free Analisa Daigle MD Work Phone: [facility] 09-12-2022 zoster vaccine recombinant Christine Teddyteojosephine RN LICENSED PRACTICAL.FINANCIAL COACH Work Phone: [facility] 04-18-2022 zoster vaccine recombinant Analisa Daigle MD Work Phone: [facility] 01-07-2022 influenza, high dose seasonal, preservative-free Ant Horta Jr., MD Work Phone: [facility] 01-07-2022 influenza virus vacc ine, unspecified formulation Hawa Steele RN LICENSED PRACTICAL.FINANCIAL COACH Work Phone: [facility] 06-08-2020 COVID-19 vaccine, ag e 12+ yr (PFIZER-BIONTECH - PURPLE TOP) Ant Horta Jr., MD Work Phone: [facility] 05-18-2020 COVID-19 vaccine, ag e 12+ yr (PFIZER-BIONTECH - PURPLE TOP) Ant Horta Jr., MD Work Phone: [facility] 01-29-2020 influenza, injectabl e, quadrivalent, contains preservative Ant Horta Jr., MD Work Phone: [facility] 08-16-2015 pneumococcal conjuga te vaccine, 13 valent Ant Horta Jr., MD Work Phone: [facility] Work Phone: 04-14-2015 tetanus and diphther ia toxoids, adsorbed, preservative free, for adult use (5 Lf of tetanus toxoid and 2 Lf of diphtheria toxoid) Ant Horta Jr., MD Work Phone: [facility] 02-08-2013 pneumococcal polysaccharide vaccine, 23 valent Ant Horta Jr., MD Work Phone: [facility] 06-22-2008 tetanus and diphther ia toxoids, not adsorbed, for adult use Ant Horta Jr., MD Work Phone: [facility] Payers Date Payer Category Payer Medicare AETNA MEDICARE A ETNA MEDICARE PPO [id number] 2021-Present [phone] [address] [place] [address] PPO [id number] 2021 Medicare AETNA MEDICARE A ETNA MEDICARE PPO [id number] 2021-Present [phone] [address] [place] [address] PPO [id number] 2021 Medicare [id number] 2012 Medicare AETNA MEDICARE A ETNA MEDICARE PPO [id number] 2012-2021 [address] [place] [address] PPO [id number] 2012 Medicare [id number] Social History Date Type Detail Facility Start: 06-13-2016 End: 12-10-2021 Tobacco smoking status NHIS Ex-smoker [facility] End: 03-24-1972 History of tobacco use Current smoker [facility] End: 03-24-1972 History of tobacco use Pipe Smoker [facility] Start: 06-13-2016 End: 12-10-2021 Tobacco use and exposure Smokeless tobacco non-user [facility] Start: 05-11-2021 End: 03-08-2023 Alcohol intake Current non-drinker of alcohol (finding) [facility] Start: 06-12-2020 End: 07-23-2022 History SDOH Alcohol Frequency 1 [facility] Start: 06-12-2020 History SDOH Alcohol Std Drinks 98 [facility] Start: 06-12-2020 End: 07-23-2022 History SDOH Social Connections Phone 5 [facility] Start: 06-12-2020 End: 07-23-2022 History SDOH Social Connections Meetings 3 [facility] Start: 06-12-2020 End: 07-23-2022 History SDOH Stress 2 [facility] Start: 06-12-2020 Education 18 [facility] Start: 06-13-2016 End: 12-10-2021 Tobacco Comment Pt stated he only smoked for a short time [facility] Start: 1940 Sex Assigned At Not on file [facility] Start: 06-17-2021 End: 10-27-2021 Exposure to SARS-CoV-2 (event) Not sure [facility] Work Phone: Start: 07-23-2022 History SDOH Alcohol Std Drinks 0 [facility] Start: 07-23-2022 End: 10-01-2022 History of Social function [facility] Start: 07-23-2022 End: 10-01-2022 Social connection and isolation panel [facility] Do you belong to any clubs or organizations such as confucianism groups, unions, fraternal or athletic groups, or school groups? Yes [facility] Are you now , , , , never or living with a partner? [facility] How often to you hav e a drink containing alcohol? Never [facility] How many standard dr inks containing alcohol do you have on a typical day? Patient does not drink [facility] Do you feel stress - tense, restless, nervous, or anxious, or unable to sleep at night because your mind is troubled all the time - these days [OSQ] Not at all [facility] (I/We) worried wheth er (my/our) food would run out before (I/we) got money to buy more. Never true [facility] In the past 12 month s, was there a time when you were not able to pay the mortgage or rent on time? No [facility] Start: 11-23-2019 Gender identity Identifies as male gender (finding) [facility] Clinical Notes 05-17-2016 to 03-21-2023 Weston Isbell MD - 03/08/2023 11:03 AM ESTTelephone Encounter - Mica Holbrook RN - 03/08/2023 8:21 AM ESTTelephone Encounter - Ignacia Donis Ma - 03/04/2023 4:13 PM EST Note Date & Type Note Facility 03-21-2023 Note HNO ID: [id number] Author: Analisa Daigle MD Service: ? Author [...] filters. Please provide 30 day download to [phone]. [phone] Diagnosis: G47.33 CPAP Auto titrating PAP device [...] a (more content not included)... [facility] 03-08-2023 Note HNO ID: [id number] Author: Weston Isbell MD Service: ? Author Type: Physician Type: Progress Notes Filed: 03/08/2023 12:08 PM Note Text: Chief Complaint Patient presents with: High blood pressure HPI Merrick Muñoz is a 82 year old male who presents here today for Above Complaints.. Accompanied today by . Patient complaining of high blood pressure for about a month now with recent ER visit around [facility]. Typical readings at home have been [...] filters. Please provide 30 day download to [phone]. DME: [facility] [phone] Diagnosis: G47.33 CPAP Auto titrating PAP device [...] 6 (more content not included)... [facility] 03-08-2023 History of Present illness Narrative Chief Complaint Patient presents with: High blood pressure HPI Merrick Muñoz is a 82 year old male who presents here today for Above Complaints.. Accompanied today by . Patient complaining of high blood pressure for about a month now with recent ER visit around [facility]. Typical readings at home have been [...] filters. Please provide 30 day download to [phone]. DME: [facility] [phone] Diagnosis: G47.33 CPAP Auto titrating PAP device [...] in 2 weeks for hypertension visit Weston Isbell MD documented in this encounter [facility] 03-08-2023 Miscellaneous Notes Reason for Call: High blood pressure Outcome: Recommended see PCP within 3 days. Patient acknowledged understanding and asked if he should continue taking extra BP medication, as recommended by ED. Conferenced to CONCHA Carbone at [facility]. Reason for Disposition Systolic BP [...] 30 days. Protocols used: Blood Pressure - [id number] documented in this encounter [facility] 03-04-2023 Miscellaneous Notes Call to Lori and [...] to monitor Analisa Daigle MD Joellen Teach [employer] CRM DEVELOPER calling back she said if calling her back, she is in until 5 pm today if after 5 pm please call the patient. Joellen Teach [employer] CRM DEVELOPER from [facility] Medical home visit per patient insurance, she [...] the patient dose or not? Can notify [employer] DEVELOPER and she will call the patient back. Please advise documented in this encounter [facility] 12-25-2022 Miscellaneous Notes TC to [facility] pharmacy and they state he does not [...] check CMP, CBC, and dilantin levels given detention use. However, goal of checking dilantin is [...] Requested that pt take SD card to [facility] for download. 3. Cognitive impairment - ICD9: [...] filters. Please provide 30 day download to [phone]. DME: [facility] [phone] Diagnosis: G47.33 CPAP Auto titrating PAP device [...] Gina Ferrer RN documented in this encounter [facility] 12-19-2022 Miscellaneous Notes Pt advised of dr crowder message to have pcp refill milvia OK to just have his PCP refill the prescription Shawn Crowder MD documented in this encounter [facility] 12-12-2022 Note HNO ID: [id number] Author: Hawa Steele APRN.FINANCIAL COACH Service: ? Author Type: Nurse Practitioner Type: Progress Notes Filed: 12/12/2022 11:55 AM Note Text: Subjective The history is provided by the patient. No english as a second language teacher was used. HPI Merrick Muñoz is a [...] have confirmed and edited as necessary, the [facility] Review of Systems Constitutional: Negative for chills [...] ER evaluation. Hawa Steele APRN.CNP [facility] 12-12-2022 Instructions Hawa Steele APRN.CNP - 12/12/2022 11:47 AM EDT Zyrtec 10 mg By mouth daily at bedtime Salt water gargles, chloraseptic spray or lozenges as needed for sore throat. Warm beverages, honey. Tylenol/ibuprofen as needed Use may use OTC Debrox or Cerumenex weekly Avoid inserting Q-tips into your ears. Follow up with your ENT as needed documented in this encounter [facility] 12-12-2022 History of Present illness Narrative Subjective The history is provided by the patient. No english as a second language teacher was used. 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 Hawa Steele APRN.FINANCIAL COACH documented in this encounter [facility] 11-19-2022 Note HNO ID: [id number] Author: Prerna Sher RN Service: ? Author Type: Registered Nurse Type: Nursing Progress Note Filed: 11/19/2022 2:14 PM Note Text: Dr. Guallpa notified of patient's elevated BP. States that it is OK for Merrick to go home. [facility] 11-19-[address] Guallpa [...] gas as needed. documented in this encounter [facility] 11-19-2022 History and physical note UPDATED PROCEDURAL [...] filters. Please provide 30 day download to [phone]. [facility]: [facility] [phone] Diagnosis: G47.33 CPAP Auto titrating PAP device [...] polyps My findings have been communicated to [facility] via shared medical record. This note will [...] filters. Please provide 30 day download to [phone]. [facility] [phone] Diagnosis: G47.33 CPAP Auto titrating PAP device [...] polyps My findings have been communicated to [facility] via shared medical record. This note will be forwarded to Analisa Daigle MD. Return to Clinic: The patient is instructed to follow-up with me after the testing has been completed. Dale Guallpa MD documented in this encounter [facility] 11-15-2022 Miscellaneous Notes Pt called with questions on how to take prep. RN reviewed [employer] instructions: stated to start prep between 1-6pm on Friday for a Friday scheduled procedure, pt may continue clear fluids with prep and avoid red or purple dyes. Pt reiterated directions, verbalized understanding. documented in this encounter [facility] 10-30-2022 Miscellaneous Notes The following approved medication [...] advise. Gina Reed documented in this encounter [facility] 10-01-2022 Note HNO ID: [id number] Author: Dale Guallpa MD Service: ? Author [...] filters. Please provide 30 day download to [phone]. DME: [facility] [phone] Diagnosis: G47.33 CPAP Auto titrating PAP device [...] m (more content not included)... [facility] 10-01-2022 Nurse Note REVIEW OF [...] Dimple Lee RN documented in this encounter [facility] 10-01-2022 History of Present illness Narrative HISTORY [...] filters. Please provide 30 day download to [phone]. [facility]: [facility] [phone] Diagnosis: G47.33 CPAP Auto titrating PAP device [...] Dale Guallpa MD documented in this encounter [facility] 10-01-2022 Instructions Dale Guallpa MD - 10/01/2022 [...] If you do not have a responsible food service driver (family member or friend) with you [...] to your office visit today with the [facility] General Surgeons. INSTRUCTIONS FOR THROMBOSED HEMORRHOIDS You [...] you should contact our office immediately @ [phone] and ask to be transferred to the General Surgery department. 2 02/2019 documented in this encounter [facility] 09-27-2022 Miscellaneous Notes Patient notified of recommendations [...] has additional questions. Thank you. Christine Grace APRN.FINANCIAL COACH Pt notified and voiced understanding. He did [...] Christine Grace APRN.AKILAH documented in this encounter [facility] 09-27-2022 Miscellaneous Notes Patient was referred to [...] No referral entered. documented in this encounter [facility] 09-27-2022 Note HNO ID: [id number] Author: Travon Tipton Service: ? Author Type: [...] Care Gap or Scheduling/Wellness visits Payer: Payor: [facility] MEDICARE / Plan: AETNA MEDICARE PPO / [...] September 27, 2022 12:02 PM [facility] 09-27-2022 Note Patient Outreach (AC CC) MERRICK MUÑOZ ([id number]) 1940 M Date Time Provider Department 09/27/22 PCP ([facility]) [facility] During your visit today, we recorded the [...] Care Gap or Scheduling/Wellness visits Payer: Payor: [facility] MEDICARE / Plan: AETNA MEDICARE PPO / [...] Allergies) Date Reviewed: 09/26/2022 Reviewed by: Adelina Martin LPN - Fully Assessed Prescriptions as of [...] filters. Please provide 30 day download to [phone]. DME: [facility] [phone] Diagnosis: G47.33 - CPAP Auto titrating PAP [...] by TRAVON TIPTON on 09/27/22 [facility] 09-27-2022 History of Present illness [...] 2022 12:02 PM documented in this encounter [facility] 09-26-2022 Note HNO ID: [id number] Author: Christine Grace APRN.FINANCIAL COACH Service: ? Author Type: Nurse Practitioner Type: [...] filters. Please provide 30 day download to [phone]. DME: [place] [phone] Diagnosis: G47.33 No current facility-administered medications for [...] lb) (more content not included)... [facility] 09-26-2022 Instructions Chula Javier - 09/26/2022 11:31 AM EDT Get labs completed today Schedule with general surgery May use Preporation H as needed Go to ER for red flag symptoms of profuse bleeding, dizziness Recommended wearing well fitted shoes for foot pain- if no improvement schedule appointment with podiatry documented in this encounter [facility] 09-26-2022 History of Present illness Narrative This [...] filters. Please provide 30 day download to [phone]. DME: [facility] [phone] Diagnosis: G47.33 No current facility-administered medications for [...] appointment with general surgery - Recommend using epzs-ofx-ighoqty Preparation H. - CBC + DIFF - [...] discussed and patient voices understanding. Christine Grace APRN.FINANCIAL COACH This note was partially generated using ISC8 recognition system. Note was reviewed for accuracy. There may be minor misspellings or grammar miscues with [employer] voice recognition. documented in this encounter [facility] 07-23-2022 Note HNO ID: [id number] Author: Jana Slater APRN.AKILAH Service: ? Author [...] drops. Patient was unable to login via [employer]. Data Reviewed: Most recent labs Total Time Spent: {DOCUMENT TOTAL TIME SPENT BUT CAN ONLY BILL for 5-30 MINUTES:* 12minutes Molnupiravir Eligibility and Patient Discussion [facility] Formulary Restriction Criteria: Adult outpatients 18 years [...] a (more content not included)... [facility] 07-23-2022 Instructions Jana Slater APRN.[facility] - 07/23/2022 11:19 AM EDT Fact [...] of LAGEVRIO during to this registry at https://covid-pr.GoSpotCheck.com or . For individuals who are sexually [...] virus. COVID-19 illnesses have ranged from very unrj-pu-yfgobn, including illness resulting in . While information [...] serious illnesses Take any medicines including prescription, jbwe-xfl-oxrymfh medicines, vitamins, and herbal products. How do [...] NG or OG that is size 12 Mongolian (FR) or larger. If you miss a [...] treat people with COVID-19. Go to https://www.fda.gov/emergency-prep wslghifn-xwf-fzdswklf/mcm-legalreg ytacmsu-mgj-pkkwgr-framework/emerg uwlb-cfg-aqstyjgoejvme for more information. It is your choice [...] FDA MedWatch at www.fda.gov/medwatch or call 1-800-fda-1088 (1526.893.2930). How should I store LAGEVRIO? Store LAGEVRIO capsules at room temperature between 68 F to 77 F (20 C to 25 C). Keep LAGEVRIO and all medicines out of the reach of children. How can I learn more about COVID-19? Ask your healthcare provider. Visit www.cdc.gov/COVID19 Contact your local or state public health department. Call [employer] at (toll free in the [place] Visit www.Better Bean What Is an Emergency Use Authorization (EUA)? [place] FDA has made LAGEVRIO available under an emergency access mechanism called an Emergency Use Authorization (EUA) The EUA is supported by a [place] of Health and Human Service ([facility]) declaration that circumstances exist to justify emergency use of drugs and biological products during the COVID-19 pandemic. LAGEVRIO for the treatment of adults with a current diagnosis of dvfe-eh-lpajhlei COVID-19 who are at high risk for [...] longer be used under the EUA). for: [employer] [address] For patent information: www.Goodpatch/research/patent Copyright [employer] [place], [place], [place] and its affiliates. All rights reserved. [id number] Revised: April 2022 documented in this encounter [facility] 07-23-2022 History of Present illness Narrative AMBULATORY TELEPHONE VISIT Merrick Muñzo has consented to this telephone encounter. Persons Present: patient Chief Complaint/Reason: Covid positive HPI: Patient presents for positive covid 19 test. Patient reports onset of symptoms 07/20/2022 with sore throat, runny nose, congestion. Patient reports he has been taking cough drops. Patient was unable to login via [employer]. Data Reviewed: Most recent labs Total Time Spent: {DOCUMENT TOTAL TIME SPENT BUT CAN ONLY BILL for 5-30 MINUTES:* 12minutes Molnupiravir Eligibility and Patient Discussion [facility] Formulary Restriction Criteria: Adult outpatients 18 years [...] 2022 11:18 AM documented in this encounter [facility] 07-23-2022 Miscellaneous Notes Patient given results and [...] the above criteria. documented in this encounter [facility] 07-22-2022 Note HNO ID: [id number] Author: Francesca Vasquez APRN.AKILAH Service: ? Author [...] filters. Please provide 30 day download to [phone]. DME: [place] [phone] Diagnosis: G47.33 CPAP Auto titrating PAP device [...] ASSESSMEN (more content not included)... [facility] 07-22-2022 Instructions Francesca Vasquez APRN.[facility] - 07/22/2022 3:06 PM EDT ASSESSMENT/PLAN: [...] Discussed expected course of illness Francesca Vasquez APRN.FINANCIAL COACH Treatment for Viral Upper Respiratory Tract Infections [...] fluids help open respiratory and sinus passages [place] [place] may offer relief of nasal and head [...] rather than better documented in this encounter [facility] 07-22-2022 History of Present illness Narrative Subjective [...] filters. Please provide 30 day download to [phone]. [phone] Diagnosis: G47.33 CPAP Auto titrating PAP device [...] Discussed expected course of illness Francesca Vasquez APRN.FINANCIAL COACH documented in this encounter [facility] 07-04-2022 Miscellaneous Notes Cpap order sent to [facility] [place] [facility] via fax [phone]. Mikey Painting LPN Addended by: ANT HORTA [...] me know and will send Rx to [email or web address]. Thank you, Ant Horta MD Download received from [facility] via fax, scanned into patients chart. Mikey [...] review and advise. documented in this encounter [facility] 05-31-2022 Note HNO ID: [id number] Author: Ant Horta Jr., MD Service: ? [...] not getting lost. Orientation: 05/31/2022 Serial 7s: [id number]... Similarities of 2 objects: watch-ruler, cao-rifle - [...] requesting pt to take SD card to [facility]. REVIEW OF SYSTEMS GENERAL:No weight loss, malaise [...] ZESTORETIC (more content not included)... [facility] 05-31-2022 History of Present illness [...] not getting lost. Orientation: 05/31/2022 Serial 7s: [id number]... Similarities of 2 objects: watch-ruler, cao-rifle - [...] filters. Please provide 30 day download to [phone]. DME: [facility] [place] [facility] [phone] Diagnosis: G47.33 CPAP Auto titrating PAP device [...] check CMP, CBC, and dilantin levels given watermelon inspector use. However, goal of checking dilantin is [...] Requested that pt take SD card to [employer] for download. 3. Cognitive impairment - ICD9: [...] which included preparing to see the patient, fskl-xp-nlvz patient care, completing clinical documentation, obtaining and/or reviewing separately obtained history, performing a medically appropriate examination, counseling and educating the patient/family/caregiver, ordering medications, tests, or procedures, communicating with other HCPs (not separately reported), and communicating results to the patient/family/caregiver. documented in this encounter [facility] 05-16-2022 Miscellaneous Notes The following approved medication [...] patient. Maude Vergara documented in this encounter [facility] 03-26-2022 Miscellaneous Notes OK to refill as [...] advise. Fela Henning documented in this encounter [facility] 03-23-2022 Miscellaneous Notes Patient calling regarding medication refill request for Hydrea. Conferenced to Fela in Dr. Daigle's office at phone number ([phone]) for assistance. Bhavna Hutton LPN documented in this encounter [facility] 03-12-2022 Note HNO ID: [id number] Author: Ant Horta Jr., MD Service: ? Author Type: Physician Type: Progress Notes Filed: 03/12/2022 10:42 AM Note Text: Made aware of pt's need for refills for PHT 30mg tabs. Unfortunately, prior message was not received. Rx sent immediately to [facility] once made aware. Ant Horta MD [facility] 03-12-2022 Miscellaneous Notes TC to patient to make aware that provider sent script to [facility]. No further questions at this time. ELYSE Govea Patient showed up at [facility] office upset that his refill has not [...] ELYSE Govea The prescription of Dilantin at [facility] has . Patient is needing another [...] Noreen Mariscal RN documented in this encounter [facility] 12-14-2021 Miscellaneous Notes Pharmacy faxed requesting the following refill. Requested Prescriptions Pending Prescriptions Disp Refills tamsulosin (FLOMAX) 0.4 mg [Pharmacy Med Name: Tamsulosin HCl 0.4 MG Oral Capsule] 90 capsule 3 Sig: Take 1 capsule by mouth once daily at bedtime Patient last appointment: Visit date not found Patient Phone numbers: [phone] (home) Request is for script(s) to be escript to pharmacy. Irma Brandon MA documented in this encounter [facility] 12-10-2021 Instructions Ant Horta Jr., MD - [...] Dec 31, 2021. documented in this encounter [facility] 12-10-2021 History of Present illness Narrative ESTABLISHED [...] filters. Please provide 30 day download to [phone]. DME: [facility] [phone] Diagnosis: G47.33 HISTORIES PAST MEDICAL HISTORY Diagnosis [...] which included preparing to see the patient, dhdm-jy-gisx patient care, completing clinical documentation, obtaining and/or reviewing separately obtained history, performing a medically appropriate examination, counseling and educating the patient/family/caregiver, ordering medications, tests, or procedures, independently interpreting results (not separately reported), and communicating results to the patient/family/caregiver. documented in this encounter [facility] 12-06-2021 Miscellaneous Notes RX INSTRUCTIONS: Patient aware [...] Liliana Taylor RN documented in this encounter [facility] 11-14-2021 Miscellaneous Notes Patient has been identified [...] Rekha Jones RN documented in this encounter [facility] 11-09-2021 Miscellaneous Notes Patient calling said he [...] Yeny Rico LPN documented in this encounter [facility] 10-30-2021 Miscellaneous Notes Called patient. Verified name and date of . Informed of results. Patient happy and verbalizes understanding. Brenda Badillo LPN ----- Message from Jh Patel PA-C sent at 10/29/2021 6:24 PM EDT ----- PSA is 0.79, good result JOSE Ball, MARCELINO HAJI documented in this encounter [facility] 10-04-2021 Note HNO ID: [id number] Author: Shawn Crowder MD Service: ? Author [...] Date Value 09/26/2021 Negative 10/09/2020 Negative Specific [place], Ur (no units) Date Value 09/26/2021 1.023 [...] filters. Please provide 30 day download to [phone]. DME: [facility] [phone]: G47.33 CPAP Auto titrating PAP device with [...] no wheezing o (more content not included)... [facility] 10-04-2021 History of Present illness Narrative ESTABLISHED [...] Date Value 09/26/2021 Negative 10/09/2020 Negative Specific [place], Ur (no units) Date Value 09/26/2021 1.023 [...] filters. Please provide 30 day download to [phone]. DME: [facility] [phone]: G47.33 CPAP Auto titrating PAP device with [...] how things are documented in this encounter [facility] 09-27-2021 History of Present illness Narrative Chief [...] daily, denies missing any dosages. Follows with [facility] Dr. Sarah Ferris. Seizures: Stable x 20-30 years, taking Dilantin 100 mg, 2 pills once a day and Dilantin 30 mg [address] Dr[address] Horta. Vitamin D Deficiency: Taking Vitamin D3 50,000 international unit(s) weekly which is managed by Placement Manager. Memory: Taking Namenda 5 mg daily. He [...] filters. Please provide 30 day download to [phone]. DME: [facility] [place] [facility] [phone] Diagnosis: G47.33 CPAP Auto titrating PAP device [...] Lymph% 09/21/2021 16.7 Abs Lymph 09/21/2021 1.07 Wirt% 09/21/2021 8.4 Abs Wirt 09/21/2021 0.54 Eosin% 09/21/2021 1.6 Abs Eosin [...] Past Histories independently gathered by the clinical youth accommodation support worker and the remaining scribed note accurately describes [...] Ivory Montesinos Ma documented in this encounter [facility] 09-25-2021 Miscellaneous Notes UA filed. Quinton Hubbard APRN.FINANCIAL COACH Can you add a urine/urine cx to current labs to complete due to hx of UTI's. Update pt once completed. Ignacia Donis Ma documented in this encounter [facility] 08-30-2021 Miscellaneous Notes TC to pharmacy who [...] the 30 mg. documented in this encounter [facility] 08-21-2021 Miscellaneous Notes Patient phones requesting refills as follows: Pending Prescriptions Disp Refills DILANTIN 30 MG CAPSULE 180 capsule 0 Sig: Take 2 capsules by mouth once daily COLTON: Yes Please review and advise. Juan M Wan documented in this encounter [facility] 08-17-2021 Miscellaneous Notes Nursing called [facility] and spoke with Pharmacist. Patient has Phenytoin RX on Hold. Will fill RX for patient. Patient aware, will check and make sure it is the correct dose. Marissa De Dios LPN Patient aware rx is managed by Dr. Galloway routing to his office to refill. Patient would like rx just sent to [facility] now for the 100 mg BID. Please send Kyra Hsu Ma documented in this encounter [facility] 07-06-2021 Miscellaneous Notes I agree with the [...] week. Please advise. documented in this encounter [facility] 06-27-2021 History of Present illness Narrative This note was created using [employer]EX Program. Subjective Merrick Muñoz is a 81 year [...] filters. Please provide 30 day download to [phone]. DME: [facility] [place] [phone] Diagnosis: G47.33 1 Device 0 CPAP Auto [...] Carmina Mcintosh PA-C documented in this encounter [facility] 06-12-2021 Miscellaneous Notes Pt called back and he checked with [facility] and the downs is the same as [facility]. Pt will get rx at [facility]. Danielle Fontenot LPN Patient calling said the downs of the generic dilantin 30 mg capsules is over 200 hundred dollars. He is asking for the rx to be sent to [facility] hoping it will be cheaper. Patient said he is still taking generic Dilantin 100 mg, three capsules daily, since he does not have the 30 mg capsules. He did not lemon picker the rx due to the downs at local pharmacy. Pending rx to send to [facility]. He is asking when does he do repeat lab work again? Please advise documented in this encounter [facility] 04-05-2021 Note HNO ID: [id number] Author: Shawn Crowder MD Service: ? Author [...] (no units) Date Value 10/09/2020 Negative Specific [place], Ur (no units) Date Value 10/09/2020 1.020 [...] filters. Please provide 30 day download to [phone]. DME: [facility] [place] [facility] [phone]: G47.33 CPAP Auto titrating PAP device with [...] Laterality Date - COLONOSCOP W/ OR W/O [facility] SPEC N/A 05/17/2016 - CYSTOSCOPY N/A 11/02/2020 [...] proteus 09/05/2020 PVR (more content not included)... [facility] 07-20-2020 Miscellaneous Notes Patient asking Daniel Grace, return his call, as he would like to talk to you about tomorrow's appt. Patient did not convey to this nurse anything more, just that he would like [employer] Special Agent to return his call: [phone]. 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 Elevated prostate specific antigen (PSA) 010 04/06/2014 documented as of this encounter (statuses as of 07/06/2021) [facility] History of Past illness Narrative* Problem Noted Date Resolved Date Rectal bleeding 05/17/2016 05/17/2016 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 Elevated prostate specific antigen (PSA) 2 010 04/06/2014 documented as of this encounter (statuses as of 07/12/2021) [facility] History of Past illness Narrative* Problem Noted Date Resolved Date Rectal bleeding 05/17/2016 05/17/2016 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 Elevated prostate specific antigen (PSA) 2 010 04/06/2014 documented as of this encounter (statuses as of 08/17/2021) [facility] History of Past illness Narrative* Problem Noted Date Resolved Date Rectal bleeding 05/17/2016 05/17/2016 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 Elevated prostate specific antigen (PSA) 2 010 04/06/2014 documented as of this encounter (statuses as of 08/21/2021) [facility] History of Past illness Narrative* Problem Noted Date Resolved Date Rectal bleeding 05/17/2016 05/17/2016 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 Elevated prostate specific antigen (PSA) 010 04/06/2014 documented as of this encounter (statuses as of 08/30/2021) [address]2017 History of Past illness Narrative* Problem Noted Date Resolved Date Rectal bleeding 05/17/2016 05/17/2016 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 Elevated prostate specific antigen (PSA) 010 04/06/2014 documented as of this encounter (statuses as of 09/25/2021) [address]2017 History of Past illness Narrative* Problem Noted Date Resolved Date Rectal bleeding 05/17/2016 05/17/2016 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 Elevated prostate specific antigen (PSA) 010 04/06/2014 documented as of this encounter (statuses as of 09/27/2021) [address]2017 History of Past illness Narrative* Problem Noted Date Resolved Date Rectal bleeding 05/17/2016 05/17/2016 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 Elevated prostate specific antigen (PSA) 010 04/06/2014 documented as of this encounter (statuses as of 09/27/2021) [address]2017 History of Past illness Narrative* Problem Noted Date Resolved Date Rectal bleeding 05/17/2016 05/17/2016 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 Elevated prostate specific antigen (PSA) 2 010 04/06/2014 documented as of this encounter (statuses as of 10/04/2021) [address] History of Past illness Narrative* Problem Noted Date Resolved Date Rectal bleeding 05/17/2016 05/17/2016 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 Elevated prostate specific antigen (PSA) 04/07/2 010 04/06/2014 documented as of this encounter (statuses as of 10/30/2021) [address]2017 History of Past illness Narrative* Problem Noted Date Resolved Date Rectal bleeding 05/17/2016 05/17/2016 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 Elevated prostate specific antigen (PSA) 010 04/06/2014 documented as of this encounter (statuses as of 11/09/2021) [address] History of Past illness Narrative* Problem Noted Date Resolved Date Rectal bleeding 05/17/2016 05/17/2016 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 Elevated prostate specific antigen (PSA) 010 04/06/2014 documented as of this encounter (statuses as of 11/14/2021) [facility] History of Past illness Narrative* Problem Noted Date Resolved Date Rectal bleeding 05/17/2016 05/17/2016 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 Elevated prostate specific antigen (PSA) 010 04/06/2014 documented as of this encounter (statuses as of 12/06/2021) [address]2017 History of Past illness Narrative* Problem Noted Date Resolved Date Rectal bleeding 05/17/2016 05/17/2016 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 Elevated prostate specific antigen (PSA) 010 04/06/2014 documented as of this encounter (statuses as of 12/11/2021) [facility] History of Past illness Narrative* Problem Noted Date Resolved Date Rectal bleeding 05/17/2016 05/17/2016 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 Elevated prostate specific antigen (PSA) 2 010 04/06/2014 documented as of this encounter (statuses as of 12/14/2021) [address]2017 History of Past illness Narrative* Problem Noted Date Resolved Date Rectal bleeding 05/17/2016 05/17/2016 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 Elevated prostate specific antigen (PSA) 2 010 04/06/2014 documented as of this encounter (statuses as of 03/12/2022) [address]2017 History of Past illness Narrative* Problem Noted Date Resolved Date Rectal bleeding 05/17/2016 05/17/2016 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 Elevated prostate specific antigen (PSA) 152 010 04/06/2014 documented as of this encounter (statuses as of 03/28/2022) [facility] History of Past illness Narrative* Problem Noted Date Resolved Date Rectal bleeding 05/17/2016 05/17/2016 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 Elevated prostate specific antigen (PSA) 15/2 010 04/06/2014 documented as of this encounter (statuses as of 03/28/2022) [facility] History of Past illness Narrative* Problem Noted Date Resolved Date Rectal bleeding 05/17/2016 05/17/2016 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 Elevated prostate specific antigen (PSA) 2 010 04/06/2014 documented as of this encounter (statuses as of 05/16/2022) [facility] of Past illness Narrative* Problem Noted Date Resolved Date Rectal bleeding 05/17/2016 05/17/2016 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 Elevated prostate specific antigen (PSA) 2 010 04/06/2014 documented as of this encounter (statuses as of 06/01/2022) [facility] History of Past illness Narrative* Problem Noted Date Resolved Date Rectal bleeding 05/17/2016 05/17/2016 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 Elevated prostate specific antigen (PSA) 2 010 04/06/2014 documented as of this encounter (statuses as of 07/05/2022) [facility] History of Past illness Narrative* Problem Noted Date Resolved Date Rectal bleeding 05/17/2016 05/17/2016 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 Elevated prostate specific antigen (PSA) 15/2 010 04/06/2014 documented as of this encounter (statuses as of 07/23/2022) [facility] History of Past illness Narrative* Problem Noted Date Resolved Date Rectal bleeding 05/17/2016 05/17/2016 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 Elevated prostate specific antigen (PSA) 152 010 04/06/2014 documented as of this encounter (statuses as of 07/23/2022) [facility] History of Past illness Narrative* Problem Noted Date Resolved Date Rectal bleeding 05/17/2016 05/17/2016 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 Elevated prostate specific antigen (PSA) 010 04/06/2014 documented as of this encounter (statuses as of 09/26/2022) [address] History of Past illness Narrative* Problem Noted Date Resolved Date Rectal bleeding 05/17/2016 05/17/2016 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 Elevated prostate specific antigen (PSA) 010 04/06/2014 documented as of this encounter (statuses as of 09/27/2022) [address]24-2017 History of Past illness Narrative* Problem Noted Date Diagnosed Date Resolved Date Rectal bleeding 05/17/2016 05/17/2016 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 Elevated prostate specific antigen (PSA) 04/07/2009 04/06/2014 documented as of this encounter (statuses as of 09/29/2022) [address]24-2017 History of Past illness Narrative* Problem Noted Date Diagnosed Date Resolved Date Rectal bleeding 05/17/2016 05/17/2016 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 Elevated prostate specific antigen (PSA) 04/07/2009 04/06/2014 documented as of this encounter (statuses as of 10/01/2022) [address]24-2017 History of Past illness Narrative* Problem Noted Date Diagnosed Date Resolved Date Rectal bleeding 05/17/2016 05/17/2016 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 Elevated prostate specific antigen (PSA) 04/07/2009 04/06/2014 documented as of this encounter (statuses as of 10/05/2022) [facility]24-2017 History of Past illness Narrative* Problem Noted Date Diagnosed Date Resolved Date Rectal bleeding 05/17/2016 05/17/2016 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 Elevated prostate specific antigen (PSA) 04/07/2009 04/06/2014 documented as of this encounter (statuses as of 10/30/2022) [address]24-2017 History of Past illness Narrative* Problem Noted Date Diagnosed Date Resolved Date Rectal bleeding 05/17/2016 05/17/2016 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 Elevated prostate specific antigen (PSA) 04/07/2009 04/06/2014 documented as of this encounter (statuses as of 11/19/2022) [address]24-2017 History of Past illness Narrative* Problem Noted Date Diagnosed Date Resolved Date Rectal bleeding 05/17/2016 05/17/2016 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 Elevated prostate specific antigen (PSA) 04/07/2009 04/06/2014 documented as of this encounter (statuses as of 12/13/2022) [facility]24-2017 History of Past illness Narrative* Problem Noted Date Diagnosed Date Resolved Date Rectal bleeding 05/17/2016 05/17/2016 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 Elevated prostate specific antigen (PSA) 04/07/2009 04/06/2014 documented as of this encounter (statuses as of 12/20/2022) [address]24-2017 History of Past illness Narrative* Problem Noted Date Diagnosed Date Resolved Date Rectal bleeding 05/17/2016 05/17/2016 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 Elevated prostate specific antigen (PSA) 04/07/2009 04/06/2014 documented as of this encounter (statuses as of 01/01/2023) [facility] History of Past illness Narrative* Problem Noted Date Diagnosed Date Resolved Date Rectal bleeding 05/17/2016 05/17/2016 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 Elevated prostate specific antigen (PSA) 04/07/2009 04/06/2014 documented as of this encounter (statuses as of 01/26/2023) [facility] History of Past illness Narrative* Problem Noted Date Diagnosed Date Resolved Date Rectal bleeding 05/17/2016 05/17/2016 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 Elevated prostate specific antigen (PSA) 04/07/2009 04/06/2014 documented as of this encounter (statuses as of 03/05/2023) [address]24-2017 History of Past illness Narrative* Problem Noted Date Diagnosed Date Resolved Date Rectal bleeding 05/17/2016 05/17/2016 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 Elevated prostate specific antigen (PSA) 04/07/2009 04/06/2014 documented as of this encounter (statuses as of 03/08/2023) [facility] History of Past illness Narrative* Problem Noted Date Diagnosed Date Resolved Date Rectal bleeding 05/17/2016 05/17/2016 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 Elevated prostate specific antigen (PSA) 04/07/2009 04/06/2014 documented as of this encounter (statuses as of 03/08/2023) [facility] Diagnosis Cough- Primary [facility] Diagnosis Seizure disorder (HCC) Unspecified epilepsy without mention of intractable epilepsy [facility] Diagnosis History of UTI- Primary Personal history of urinary (tract) infection [facility] Diagnosis Essential hypertension- Primary Unspecified essential hypertension Seizure disorder (HCC) Unspecified epilepsy without mention of intractable epilepsy Hyperlipidemia with target LDL less than 130 Other and unspecified hyperlipidemia BARTOLO (obstructive sleep apnea) Obstructive sleep apnea (adult) (pediatric) Hypothyroidism, unspecified type 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 [facility] Diagnosis Nocturia- Primary [facility]* Diagnosis Seizure disorder (HCC) Unspecified epilepsy without mention of intractable epilepsy [facility] Diagnosis Nonintractable epilepsy without status epilepticus, unspecified epilepsy type (HCC)- Primary Cognitive impairment Unspecified persistent 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 BARTOLO (obstructive sleep apnea) Obstructive sleep apnea (adult) (pediatric) [facility] Diagnosis Urinary frequency Benign prostatic hyperplasia with urinary frequency [facility] Diagnosis Thrombocytosis Essential thrombocythemia 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 [facility]* Diagnosis Seizure disorder (HCC) Unspecified epilepsy without mention of intractable epilepsy [facility] Diagnosis Seizure disorder (HCC)- Primary Unspecified epilepsy without mention of intractable epilepsy BARTOLO on CPAP Obstructive sleep apnea (adult) (pediatric) Cognitive impairment Unspecified persistent 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 Elevated blood pressure reading Elevated blood pressure reading without diagnosis of hypertension Unspecified dementia, unspecified severity, without behavioral disturbance, psychotic disturbance, mood disturbance, and anxiety (HCC) [facility] Diagnosis Obstructive sleep apnea (adult) (pediatric)- Primary documented in this encounter [facility] note* Diagnosis Sore throat- Primary Acute pharyngitis Viral URI with cough Acute upper respiratory infections of unspecified site Urinary incontinence, unspecified type documented in this encounter [facility] note* Diagnosis COVID-19- Primary [facility]* Diagnosis Rectal bleeding- Primary Hemorrhage of rectum and anus Dizziness Dizziness and giddiness Foot pain, left Pain in limb Thrombocytosis Essential thrombocythemia 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 documented in this encounter [facility] note* Diagnosis External hemorrhoid, thrombosed- Primary External thrombosed hemorrhoids Rectal bleeding Hemorrhage of rectum and anus Personal history of colonic polyps [facility] Diagnosis Sore throat- Primary Acute pharyngitis Post-nasal drainage Unspecified sinusitis (chronic) H/O impacted cerumen Personal history of other disorders of nervous system and sense organs [facility] Diagnosis Urinary frequency Benign prostatic hyperplasia with urinary frequency [facility]* Diagnosis Cognitive impairment Unspecified persistent 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 documented in this encounter [facility] note* Diagnosis Loud snoring- Primary Rectal bleeding Hemorrhage of rectum and anus External hemorrhoid, thrombosed External thrombosed hemorrhoids Personal history of colonic polyps [facility] Diagnosis Essential hypertension- Primary Unspecified essential hypertension documented in this encounter [facility] for referral (narrative)* Outpatient Procedure (Routine) - Authorized Specialty Diagnoses / Procedures Referred By Elian seo Referred To Contact [facility] Diagnoses Rectal bleeding External hemorrhoid, thrombosed Personal history of colonic polyps Procedures COLONOSCOPY SCREENING COLONOSCOPY FLX DX W/COLLJ SPEC WHEN PFRMD Dale Guallpa MD [address] [place] [address] [place] [phone] Referral ID Status Reason Start Date Expiration Date Visits Requested Visits Authorized [id number] Authorized Auto-Generat ed Referral 10/01/2022 10/02/2023 1 1 [facility] for referral (narrative)* Outpatient Procedure (Routine) - Closed Specialty Diagnoses / Procedures Referred By Elian seo Referred To Contact [facility] Diagnoses Rectal bleeding External hemorrhoid, thrombosed Personal history of colonic polyps Procedures COLONOSCOPY SCREENING COLONOSCOPY FLX DX W/COLLJ SPEC WHEN Dale Allison MD [address] [place] [address] [place] [phone] Referral ID Status Reason Start Date Expiration Date V isits Requested Visits Authorized [id number] Closed Auto-Generate d Referral 10/01/2022 10/02/2023 1 1 [facility] for visit Narrative* Outpatient Procedure (Routine) - Closed Specialty Diagnoses / Procedures Referred By Elian seo Referred To Contact [facility] Diagnoses Rectal bleeding External hemorrhoid, thrombosed Personal history of colonic polyps Procedures COLONOSCOPY SCREENING COLONOSCOPY FLX DX W/COLLJ SPEC WHEN Dale Allison MD [address] [place] [address] [place] [phone] Referral ID Status Reason Start Date Expiration Date V isits Requested Visits Authorized [id number] Closed Auto-Generate d Referral 10/01/2022 10/02/2023 1 1 [facility] Summary Purpose Family History No Family History Records FoundNo Family History Records FoundNo Family History Records FoundNo Family History Records Found Advance Directives No Advanced Directives Records FoundDocuments on File Type Date 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 Advance Directive(s) 05/17/2016 2:28 PM Health Concerns Infection Onset Date Last Indicated Resolved Time COVID-19 Confirmed 07/22/2022 07/22/2022 Reason for Referral Specialty Diagnoses / Procedures Referred By Contac t Referred To Contact General Surgery Diagnoses Rectal bleeding Procedures CONSULT TO GENERAL SURGERY OFFICE/OUTPATIENT [facility] 60-74 MINUTES Christine Grace APRN.FINANCIAL COACH [address] [place] [address] Referral ID Status Reason Start Date Expiration Date Visits Requested Visits Authorized [id number] Pending Review PCP Requested Referral 09/26/2022 09/26/2023 1 1 Specialty Diagnoses / Procedures Referred By Contac t Referred To Contact Podiatry Diagnoses Foot pain, left Procedures CONSULT TO PODIATRY OFFICE/OUTPATIENT [facility] 60-74 MINUTES Christine Grace APRN.FINANCIAL COACH [address] [place] [address] Referral ID Status Reason Start Date Expiration Date Visits Requested Visits Authorized [id number] Pending Review PCP Requested Referral 09/26/2022 09/26/2023 [...] DATE CREATED AUTHOR AUTHOR'S ORGANIZ ATION 07/01/2020 [facility] DATE CREATED AUTHOR AUTHOR'S ORGANIZ ATION 03/16/2022 [facility] DATE CREATED AUTHOR AUTHOR'S WOLFGANG ATION 03/22/2023 [facility] Source Comments (unrecognize d section and content) In the event this informatio n is protected by the Federal Confidentiality of Alcohol and Drug Abuse Patient Records regulations: The Federal rules restrict any use of the information to criminally investigate or prosecute any alcohol or drug abuse patient.[facility] the event this information is protected by the Federal Confidentiality of Alcohol and Drug Abuse Patient Records regulations: The Federal rules restrict any use of the information to criminally investigate or prosecute any alcohol or drug abuse patient.[facility] the event this information is protected by the Federal Confidentiality of Alcohol and Drug Abuse Patient Records regulations: The Federal rules restrict any use of the information to criminally investigate or prosecute any alcohol or drug abuse patient.[facility] the event this information is protected by the Federal Confidentiality of Alcohol and Drug Abuse Patient Records regulations: The Federal rules restrict any use of the information to criminally investigate or prosecute any alcohol or drug abuse patient.[facility] the event this information is protected by the Federal Confidentiality of Alcohol and Drug Abuse Patient Records regulations: The Federal rules restrict any use of the information to criminally investigate or prosecute any alcohol or drug abuse patient.[facility] the event this information is protected by the Federal Confidentiality of Alcohol and Drug Abuse Patient Records regulations: The Federal rules restrict any use of the information to criminally investigate or prosecute any alcohol or drug abuse patient.[facility] the event this information is protected by the Federal Confidentiality of Alcohol and Drug Abuse Patient Records regulations: The Federal rules restrict any use of the information to criminally investigate or prosecute any alcohol or drug abuse patient.[facility] the event this information is protected by the Federal Confidentiality of Alcohol and Drug Abuse Patient Records regulations: The Federal rules restrict any use of the information to criminally investigate or prosecute any alcohol or drug abuse patient.[facility] the event this information is protected by the Federal Confidentiality of Alcohol and Drug Abuse Patient Records regulations: The Federal rules restrict any use of the information to criminally investigate or prosecute any alcohol or drug abuse patient.[facility] the event this information is protected by the Federal Confidentiality of Alcohol and Drug Abuse Patient Records regulations: The Federal rules restrict any use of the information to criminally investigate or prosecute any alcohol or drug abuse patient.[facility]In the event this information is protected by the Federal Confidentiality of Alcohol and Drug Abuse Patient Records regulations: The Federal rules restrict any use of the information to criminally investigate or prosecute any alcohol or drug abuse patient.[facility] the event this information is protected by the Federal Confidentiality of Alcohol and Drug Abuse Patient Records regulations: The Federal rules restrict any use of the information to criminally investigate or prosecute any alcohol or drug abuse patient.[facility]In the event this information is protected by the Federal Confidentiality of Alcohol and Drug Abuse Patient Records regulations: The Federal rules restrict any use of the information to criminally investigate or prosecute any alcohol or drug abuse patient.[facility]In the event this information is protected by the Federal Confidentiality of Alcohol and Drug Abuse Patient Records regulations: The Federal rules restrict any use of the information to criminally investigate or prosecute any alcohol or drug abuse patient.[facility]In the event this information is protected by the Federal Confidentiality of Alcohol and Drug Abuse Patient Records regulations: The Federal rules restrict any use of the information to criminally investigate or prosecute any alcohol or drug abuse patient.[facility] the event this information is protected by the Federal Confidentiality of Alcohol and Drug Abuse Patient Records regulations: The Federal rules restrict any use of the information to criminally investigate or prosecute any alcohol or drug abuse patient.[facility] the event this information is protected by the Federal Confidentiality of Alcohol and Drug Abuse Patient Records regulations: The Federal rules restrict any use of the information to criminally investigate or prosecute any alcohol or drug abuse patient.[facility] the event this information is protected by the Federal Confidentiality of Alcohol and Drug Abuse Patient Records regulations: The Federal rules restrict any use of the information to criminally investigate or prosecute any alcohol or drug abuse patient.[facility] HospitalIn the event this information is protected by [...] or prosecute any alcohol or drug abuse patient.[facility]In the event this information is protected by the Federal Confidentiality of Alcohol and Drug Abuse Patient Records regulations: The Federal rules restrict any use of the information to criminally investigate or prosecute any alcohol or drug abuse patient.[facility] the event this information is protected by the Federal Confidentiality of Alcohol and Drug Abuse Patient Records regulations: The Federal rules restrict any use of the information to criminally investigate or prosecute any alcohol or drug abuse patient.[facility]In the event this information is protected by the Federal Confidentiality of Alcohol and Drug Abuse Patient Records regulations: The Federal rules restrict any use of the information to criminally investigate or prosecute any alcohol or drug abuse patient.[facility]In the event this information is protected by the Federal Confidentiality of Alcohol and Drug Abuse Patient Records regulations: The Federal rules restrict any use of the information to criminally investigate or prosecute any alcohol or drug abuse patient.[facility]In the event this information is protected by the Federal Confidentiality of Alcohol and Drug Abuse Patient Records regulations: The Federal rules restrict any use of the information to criminally investigate or prosecute any alcohol or drug abuse patient.[facility]In the event this information is protected by the Federal Confidentiality of Alcohol and Drug Abuse Patient Records regulations: The Federal rules restrict any use of the information to criminally investigate or prosecute any alcohol or drug abuse patient.[facility]In the event this information is protected by the Federal Confidentiality of Alcohol and Drug Abuse Patient Records regulations: The Federal rules restrict any use of the information to criminally investigate or prosecute any alcohol or drug abuse patient.[facility] the event this information is protected by the Federal Confidentiality of Alcohol and Drug Abuse Patient Records regulations: The Federal rules restrict any use of the information to criminally investigate or prosecute any alcohol or drug abuse patient.[facility]In the event this information is protected by the Federal Confidentiality of Alcohol and Drug Abuse Patient Records regulations: The Federal rules restrict any use of the information to criminally investigate or prosecute any alcohol or drug abuse patient.[facility]In the event this information is protected by the Federal Confidentiality of Alcohol and Drug Abuse Patient Records regulations: The Federal rules restrict any use of the information to criminally investigate or prosecute any alcohol or drug abuse patient.[facility]In the event this information is protected by the Federal Confidentiality of Alcohol and Drug Abuse Patient Records regulations: The Federal rules restrict any use of the information to criminally investigate or prosecute any alcohol or drug abuse patient.[facility]In the event this information is protected by the Federal Confidentiality of Alcohol and Drug Abuse Patient Records regulations: The Federal rules restrict any use of the information to criminally investigate or prosecute any alcohol or drug abuse patient.[facility]In the event this information is protected by the Federal Confidentiality of Alcohol and Drug Abuse Patient Records regulations: The Federal rules restrict any use of the information to criminally investigate or prosecute any alcohol or drug abuse patient.[facility]In the event this information is protected by the Federal Confidentiality of Alcohol and Drug Abuse Patient Records regulations: The Federal rules restrict any use of the information to criminally investigate or prosecute any alcohol or drug abuse patient.[facility]In the event this information is protected by the Federal Confidentiality of Alcohol and Drug Abuse Patient Records regulations: The Federal rules restrict any use of the information to criminally investigate or prosecute any alcohol or drug abuse patient.[facility]In the event this information is protected by the Federal Confidentiality of Alcohol and Drug Abuse Patient Records regulations: The Federal rules restrict any use of the information to criminally investigate or prosecute any alcohol or drug abuse patient.[facility]In the event this information is protected by the Federal Confidentiality of Alcohol and Drug Abuse Patient Records regulations: The Federal rules restrict any use of the information to criminally investigate or prosecute any alcohol or drug abuse patient.[facility]In the event this information is protected by the Federal Confidentiality of Alcohol and Drug Abuse Patient Records regulations: The Federal rules restrict any use of the information to criminally investigate or prosecute any alcohol or drug abuse patient.[facility]In the event this information is protected by the Federal Confidentiality of Alcohol and Drug Abuse Patient Records regulations: The Federal rules restrict any use of the information to criminally investigate or prosecute any alcohol or drug abuse patient.[facility]In the event this information is protected by the Federal Confidentiality of Alcohol and Drug Abuse Patient Records regulations: The Federal rules restrict any use of the information to criminally investigate or prosecute any alcohol or drug abuse patient.[facility] HospitalIn the event this information is protected by the Federal Confidentiality of Alcohol and Drug Abuse Patient Records regulations: The Federal rules restrict any use of the information to criminally investigate or prosecute any alcohol or drug abuse patient.[facility] Reason for Visit (unrecogniz ed section and [...] NEW HIGH MDM 60-74 MINUTES Christine Grace APRN.FINANCIAL COACH [address] [place] [address] Referral ID Status Reason Start Date Expiration Date Visits Requested Visits Authorized [id number] Pending Review PCP Requested Referral 09/26/2022 09/26/2023 1 1 Reason Comments Patient Question Reason Onset Date Comments Refill Request 10/30/2022 Reason Comments Sore Throat X3 days Reason Onset Date Comments Refill Request 12/24/2022 Reason Comments 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 Reason Comments Opened In Error Reason Comments High blood pressure Care Teams (unrecognized sec tion and content) Feed Weigher Relationship Specialty Start Date End Date Analisa Daigle MD [address] [place], [place] [id number] PCP - General Family Practice 11/10/20 Sarah Ferris MD [address] [place] [address] Placement Manager Endocrinology 11/29/20 Feed Weigher Relationship Specialty Start Date End Date Analisa Daigle MD [address] [place], [place] [id number] PCP - General Family Practice 11/10/20 Sarah Ferris MD [address] [place] [address] Placement Manager Endocrinology 11/29/20 Feed Weigher Relationship Specialty Start Date End Date Amarilis Pretty III, MD PCP - General Family Practice 06/11/12 11/09/20 Analisa Daigle MD [address] [place] [address] PCP - General Family Practice 11/10/20 Sarah Ferris MD [address] [place] [address] Placement Manager Endocrinology 11/29/20 Feed Weigher Relationship Specialty Start Date End Date Analisa Daigle MD [address] [place] [address] PCP - General Family Practice 11/10/20 Sarah Ferris MD [address] [place] [address] Placement Manager Endocrinology 11/29/20 Feed Weigher Relationship Specialty Start Date End Date Analisa Daigle MD [address] [place] [address] PCP - General Family Practice 11/10/20 Sarha Ferris MD [address] [place] [address] Placement Manager Endocrinology 11/29/20 Feed Weigher Relationship Specialty Start Date End Date Analisa Daigle MD [address] [place] [address] PCP - General Family Practice 11/10/20 Sarah Ferris MD [address] [place] [address] Placement Manager Endocrinology 11/29/20 Feed Weigher Relationship Specialty Start Date End Date Analisa Daigle MD [address] [facility] [place] [address] PCP - General Family Practice 11/10/20 Sarah Ferris MD [address] [place] [address] Placement Manager Endocrinology 11/29/20 Feed Weigher Relationship Specialty Start Date End Date Analisa Daigle MD [address] [place] [address] PCP - General Family Practice 11/10/20 Sarah Ferris MD [address] [place] [address] Placement Manager Endocrinology 11/29/20 Feed Weigher Relationship Specialty Start Date End Date Analisa Daigle MD [address] [place] [address] PCP - General Family Practice 11/10/20 Sarah Ferris MD [address] [place] [address] Placement Manager Endocrinology 11/29/20 Feed Weigher Relationship Specialty Start Date End Date Analisa Daigle MD [address] [place] [address] PCP - General Family Medicine 11/10/20 Sarah Ferris MD [address] [place] [address] Placement Manager Endocrinology 11/29/20 Feed Weigher Relationship Specialty Start Date End Date Analisa Daigle MD [address] [place] [address] PCP - General Family Medicine 11/10/20 Sarah Ferris MD [address] [place] [address] Placement Manager Endocrinology 11/29/20 Feed Weigher Relationship Specialty Start Date End Date Analisa Daigle MD [address] [place] [address] PCP - General Family Medicine 11/10/20 Sarah Ferris MD [address] [place] [address] Placement Manager Endocrinology 11/29/20 Feed Weigher Relationship Specialty Start Date End Date Analisa Daigle MD [address] [place] [address] PCP - General Family Medicine 11/10/20 Sarah Ferris MD [address] [place] [address] Placement Manager Endocrinology 11/29/20 Feed Weigher Relationship Specialty Start Date End Date Analisa Daigle MD [address] [place] [address] PCP - General Family Medicine 11/10/20 Sarah Ferris MD [address] [place] [address] Placement Manager Endocrinology 11/29/20 Feed Weigher Relationship Specialty Start Date End Date Analisa Daigle MD [address] [place] [address] PCP - General Family Medicine 11/10/20 Sarah Ferris MD [address] [place] [address] Placement Manager Endocrinology 11/29/20 Feed Weigher Relationship Specialty Start Date End Date Analisa Daigle MD [address] [facility] [place] [address] PCP - General Family Medicine 11/10/20 Sarah Ferris MD [address] [place] [address] Placement Manager Endocrinology 11/29/20 Feed Weigher Relationship Specialty Start Date End Date Analisa Daigle MD [address] [place] [address] PCP - General Family Medicine 11/10/20 Sarah Ferris MD [address] [place] [address] Placement Manager Endocrinology 11/29/20 Feed Weigher Relationship Specialty Start Date End Date Analisa Daigle MD [address] [place] [address] PCP - General Family Medicine 11/10/20 Sarah Ferris MD [address] [place] [address] Placement Manager Endocrinology 11/29/20 Feed Weigher Relationship Specialty Start Date End Date Analisa Daigle MD [address] [place] [address] PCP - General Family Medicine 11/10/20 Sarah Ferris MD [address] [place] [address] Placement Manager Endocrinology 11/29/20 Feed Weigher Relationship Specialty Start Date End Date Analisa Daigle MD [address] [place] [address] PCP - General Family Medicine 11/10/20 Sarah Ferris MD [address] [place] [address] Placement Manager Endocrinology 11/29/20 Feed Weigher Relationship Specialty Start Date End Date Analisa Daigle MD [address] [place] [address] PCP - General Family Medicine 11/10/20 Sarah Ferris MD [address] [place], [place] [id number] Placement Manager Endocrinology 11/29/20 Feed Weigher Relationship Specialty Start Date End Date Analisa Daigle MD [address] [place], [place] [address] PCP - General Family Medicine 11/10/20 Sarah Ferris MD [address] [place], [place] [id number] Placement Manager Endocrinology 11/29/20 Feed Weigher Relationship Specialty Start Date End Date Analisa Daigle MD [address] [place], [place] [address] PCP - General Family Medicine 11/10/20 Sarah Ferris MD [address] [place] [address] Placement Manager Endocrinology 11/29/20 Feed Weigher Relationship Specialty Start Date End Date Analisa Daigle MD [address] [place], [place] [address] PCP - General Family Medicine 11/10/20 Sarah Ferris MD [address] [place] [address] Placement Manager Endocrinology 11/29/20 Feed Weigher Relationship Specialty Start Date End Date Analisa Daigle MD [address] [place] [address] PCP - General Family Medicine 11/10/20 Sarah Ferris MD [address] [place] [address] Placement Manager Endocrinology 11/29/20 Feed Weigher Relationship Specialty Start Date End Date Analisa Daigle MD [address] [place] [address] PCP - General Family Medicine 11/10/20 Sarah Ferris MD [address] [place], [place] [id number] Placement Manager Endocrinology 11/29/20 Feed Weigher Relationship Specialty Start Date End Date Analisa Daigle MD [address] [place], [place] [address] PCP - General Family Medicine 11/10/20 Sarah Ferris MD [address] [place] [address] Placement Manager Endocrinology 11/29/20 Feed Weigher Relationship Specialty Start Date End Date Analisa Daigle MD [address] [place] [address] PCP - General Family Medicine 11/10/20 Sarah Ferris MD [address] [place] [address] Placement Manager Endocrinology 11/29/20 Feed Weigher Relationship Specialty Start Date End Date Analisa Daigle MD [address] [place], [place] [address] PCP - General Family Medicine 11/10/20 Sarah Ferris MD [address] [place] [address] Placement Manager Endocrinology 11/29/20 Feed Weigher Relationship Specialty Start Date End Date Analisa Daigle MD [address] [place] [address] PCP - General Family Medicine 11/10/20 Sarah Ferris MD [address] [place] [address] Placement Manager Endocrinology 11/29/20 FOR RECORDS PERTAINING TO PATIENTS [...] BE BASED ON THE PRIMARY CLINICAL RECORDS. [email or web address] provides no warranty or guarantee of the accuracy or completeness of information in this document.
[2023-04-01 02:18] LABS: Troponin-I HS 13 pg/mL (3.0-78.0)
[2023-04-01 04:16] VITALS: BP 151/68; PULSE 48; RESP 16; O2SAT 97
== END 2023-04-01 04:18 | disposition home or self-care (01) ==
PROVIDERS: Emergency Provider Emergency Medicine; PCP Family Medicine; Visit Provider Emergency Medicine
DX: R42 Dizziness and giddiness (principal); I10 Essential (primary) hypertension; R11.0 Nausea; R51.9 Headache, unspecified; Z79.899 Other long term (current) drug therapy; Z79.890 Hormone replacement therapy; E03.9 Hypothyroidism, unspecified
CPT/HCPCS: 70450; 71045; 80048; 84484; 85025; 85610; 85730; 93005; 99285; A4216

== ENCOUNTER → 2023-09-24 | Outpatient (CLI) | payer MEDICARE, SELFPAY ==
[2023-09-24 15:52] LABS: Absolute Lymphocyte Count 0.56 X10^3/uL (0.83-4.51); Absolute Neutrophil Count 2.7 X10^3/uL (2.0-7.7); Basophil# 0.04 X10^3/uL; Basophil% 1.1 % (0-1); Eosinophil# 0.04 X10^3/uL; Eosinophils% 1.1 % (0-5); Hematocrit 34.1 % (40-54); Hemoglobin 11.5 g/dL (13.0-16.5); Lymphocyte # 0.56 X10^3/ul (0.83-4.51); Lymphocyte % 15.2 % (19-41); Mean Corp Hgb Conc 33.7 g/dL (32-36); Mean Corpuscular Hgb 40.6 pg (27.0-32.0); Mean Corpuscular Volume 120.5 fL (80-94); Mean Platelet Vol. 9.2 fl (6.2-12.0); Monocyte# 0.31 X10^3/uL; Monocyte% 8.4 % (0-10); NRBC Flagged by Analyzer 0 % (0-5); Neutrophil # 2.68 X10^3/uL (2.7-7.7); Neutrophil % 72.6 % (47-70); POSITIVE DIFFERENTIAL YES; Platelet Count 365 K/mm3 (150-450); RBC Distribution Width CV 14.2 % (11.6-14.6); RBC Distribution Width SD 64.3 fl (35.1-43.9); Red Blood Count 2.83 M/mm3 (4.6-6.2); White Blood Count 3.7 K/mm3 (4.4-11.0)
[2023-09-24 16:23] LABS: AST(SGOT) 64 U/L (15-37); Alanine Aminotransfer ALT/SGPT 213 U/L (16-61); Albumin, Serum 3.2 g/dL (3.2-5.0); Alkaline Phosphatase 89 U/L (45-117); Anion Gap 7 (5-15); BUN 36 mg/dL (7-18); BUN/Creat Ratio 27.3 RATIO (10-20); Calcium,Total 8.6 mg/dL (8.5-10.1); Chloride 109 mmol/L (98-107); Creatinine, Serum 1.32 mg/dL (0.70-1.30); EST Glomerular Filtration Rate 55 mL/min (>60); Est Glom Filt Rate - Afr Amer 67 mL/min (>60); Globulin 3.2 g/dL (2.2-4.2); Glucose 115 mg/dL (74-106); Potassium 4.2 mmol/L (3.5-5.1); Protein, Total 6.4 g/dL (6.4-8.2); Sodium Level 139 mmol/L (136-145); Thyroid Stim Hormone (TSH) 4.84 uIU/mL (0.358-3.74)
== END | disposition home or self-care (01) ==
LOC: LAB 14:57
PROVIDERS: PCP Family Medicine; Referring Provider Nurse Practitioner Family; Visit Provider Internal Medicine Endocrinology, Diabetes & Metabolism
DX: E03.8 Other specified hypothyroidism (principal)
CPT/HCPCS: 36415; 80053; 84443; 85025

== ENCOUNTER → 2023-11-17 | Outpatient (CLI) | payer MEDICARE, SELFPAY | END | disposition home or self-care (01) | LOC: LAB 08:41 | PROVIDERS: PCP Family Medicine; Referring Provider Internal Medicine Endocrinology, Diabetes & Metabolism; Visit Provider Internal Medicine Endocrinology, Diabetes & Metabolism | DX: Z00.00 Encounter for general adult medical examination without abnormal findings (principal) ==

== ENCOUNTER → 2023-12-16 | Outpatient (CLI) | payer MEDICARE, SELFPAY ==
--- NOTE | 2023-12-16 06:29 | ECHOD_ITS ---
Reason For Study: HTN Procedure This was a 2D Doppler, Color Flow transthoracic echocardiogram. Exam performed in department. Left Ventricle Normal LV size. Left ventricular systolic function is normal. The left ventricular ejection fraction is 65 %. Stage 1 diastolic dysfunction. No regional wall motion abnormalities noted. Right Ventricle Normal RV size. Normal systolic function. Atria Normal left atrium. Normal right atrium. Mitral Valve Normal mitral valve. Tricuspid Valve Normal tricuspid valve. Mild (1+) tricuspid valve insufficiency. Pulmonary artery systolic pressure is 35 mmHg. Aortic Valve Trisinus/trileaflet aortic valve. Pulmonic Valve Normal pulmonic valve. Great Vessels Normal aortic root. The pulmonary artery is normal size. Normal inferior vena cava. Pericardium/Pleural No pericardial effusion. MMode/2D Measurements & Calculations LVIDd: 5.3 cm IVSd: 1.3 cm LVOT diam: 2.1 cm LVIDs: 3.0 cm LVPWd: 1.0 cm LVOT area: 3.5 cm2 RVDd: 4.0 cm FS: 43.7 % asc Aorta Diam: 3.7 cm LAV(MOD-bp): 66.0 ml LVAd ap4: 33.8 cm2 LAV(MOD-bp) Indexed: 31.0 ml/m2 LVLd ap4: 8.8 cm LAV(MOD-sp2): 66.4 ml EDV(MOD-sp4): 105.3 ml LAV(MOD-sp4): 56.4 ml EDV(sp4-el): 109.4 ml LVAs ap4: 19.2 cm2 LVLs ap4: 8.0 cm ESV(MOD-sp4): 40.1 ml ESV(sp4-el): 39.3 ml EF(MOD-sp4): 61.9 % EF(sp4-el): 64.0 % LVAd ap2: 37.1 cm2 SV(MOD-sp4): 65.1 ml SV(MOD-sp2): 79.1 ml LVLd ap2: 9.4 cm EDV(MOD-sp2): 119.5 ml EDV(sp2-el): 123.9 ml LVAs ap2: 19.3 cm2 LVLs ap2: 7.8 cm ESV(MOD-sp2): 40.4 ml ESV(sp2-el): 40.4 ml EF(MOD-sp2): 66.2 % SV(sp4-el): 70.0 ml LA dimension(2D): 4.4 cm LA A4 area: 18.9 cm2 RA A4 area: 13.7 cm2 TAPSE: 2.0 cm Time Measurements MV dec time: 0.22 sec Doppler Measurements & Calculations MV E max santana: 111.7 cm/sec Lat Peak E' Santana: 8.5 cm/sec Med Peak E' Santana: 7.7 cm/sec MV A max santana: 124.7 cm/sec E/E' lat: 13.2 E/E' med: 14.5 MV E/A: 0.90 Ao V2 max: 138.5 cm/sec LV V1 max: 111.7 cm/sec MV dec slope: 501.1 cm/sec2 Ao max P.7 mmHg LV V1 max P.0 mmHg Ao V2 mean: 90.8 cm/sec LV V1 mean P.5 mmHg Ao mean P.8 mmHg LV V1 mean: 73.4 cm/sec Ao V2 VTI: 38.0 cm LV V1 VTI: 31.3 cm AV (velocity ratio): 0.82 AGUEDA(I,D): 2.9 cm2 AGUEDA(V,D): 2.8 cm2 SV(LVOT): 108.3 ml PA V2 max: 131.5 cm/sec PI end-d santana: 94.7 cm/sec PA max PG (full): 4.0 mmHg TR max santana: 271.7 cm/sec TR max P.5 mmHg ECHO/Echo Complete Interpretation Summary Normal LV size. Left ventricular systolic function is normal. The left ventricular ejection fraction is 65 %. Stage 1 diastolic dysfunction. Pulmonary artery systolic pressure is 35 mmHg. Ordering Physician: Jose Nova Referring Physician: Jose Nova Performed By: Tonia Newman RDCS
--- NOTE | 2023-12-16 16:26 | STRESSREP ---
Stress Test Report Exercise and pharmacologic myocardial perfusion stress test. 83-year-old man with a history of hypertension and dyspnea Stress protocol: Resting EKG demonstrates normal sinus rhythm with a rate of 53 bpm resting blood pressure is 150/84 mmHg. The patient exercised according to the regular Hemanth protocol for a total duration of 3 minutes attaining a maximum heart rate of 74 bpm which was 53% of maximum predicted heart rate; the maximum workload was 4.6 METS metabolic equivalents. At rest there were no ST or T wave changes noted to suggest ischemia and at peak exercise upsloping ST changes only were noted which did not meet the criteria for ischemia. The test was therefore switched over to a pharmacologic stress test and 0.4 mg of regadenoson was infused per usual protocol. Continuous EKG monitoring was performed there were no ST or T wave changes noted to suggest abnormal flow reserve. Myocardial perfusion protocol. 14.2 mCi of technetium 99m sestamibi was injected at rest. 0.4 mg of regadenoson was infused per usual protocol. And at peak infusion 44.9 mCi of technetium 99m sestamibi was injected. Stress and rest images were reconstructed and compared in the short axis vertical and horizontal long axis. Gated images were obtained. Perfusion SPECT analysis: Review of the stress images demonstrate normal uptake of tracer noted in all areas of the myocardium. The resting images similarly demonstrate normal uptake of tracer noted in all areas of the myocardium. No areas of reversibility are noted to suggest ischemia no previous infarct was noted. Gated SPECT analysis: The gated ejection fraction is 77%. Conclusion: Normal pharmacologic myocardial perfusion stress test Preserved ejection fraction.
== END | disposition home or self-care (01) ==
LOC: CVS 06:27
PROVIDERS: PCP Family Medicine; Referring Provider Internal Medicine Cardiovascular Disease; Visit Provider Internal Medicine Cardiovascular Disease
DX: R06.02 Shortness of breath (principal); I10 Essential (primary) hypertension; G47.33 Obstructive sleep apnea (adult) (pediatric)
CPT/HCPCS: 78452; 93017; 93306; A9500; A4216; J2785

== ENCOUNTER 2024-01-02 16:32 | Inpatient (IN) | payer MEDICARE, SELFPAY ==
[2024-01-02] VITALS (10 sets, daily range): BP systolic 126–178; BP diastolic 50–94; PULSE 54–64; RESP 16–24; TEMP 36.2–37.2; O2SAT 96–100; BMI 30.9; BMI 29.9
--- NOTE | 2024-01-02 16:55 | EDS_ITS ---
HPI History of Present Illness Chief Complaint: Abn Labs Detail of Chief Complaint: Abnormal hemoglobin Informant: patient and spouse/S.O. Narrative Narrative: Patient presents to the emergency department with complaint of of fatigue and lo w hemoglobin. Patient states that he has been feeling fatigued and has not had much energy all summer but especially over the last 3 weeks. Patient apparently had some blood work today and was instructed by his primary care physician to come to the emergency department to get a blood transfusion as his hemoglobin was 7. Patient denies any blood in his stool or black tarry stool. He is never had a blood transfusion before. He denies any blood in his urine. He denies recent illness. [facility] Medical History BARTOLO (obstructive sleep apnea) Renal calculi History of non-ST elevation myocardial infarction (NSTEMI) (08/13/19) Essential (primary) hypertension Hypothyroidism Elevated troponin I level Myeloproliferative neoplasm Thrombocythemia, essential LI (acute kidney injury) (08/13/19) SARS-associated coronavirus infection (08/13/19) Seizures COVID-19 (08/13/19) Home Medications ?Medication ?Instructions ?Recorded ?Last Taken ?Type aspirin 81 mg chewable tablet 81 mg PO DAILY@1000 09/01/19 Unknown Rx ergocalciferol (vitamin D2) 1,250 50,000 unit PO QWEEK 04/13/20 Unknown History mcg (50,000 unit) capsule thiamine HCl (vitamin B1) 250 mg 500 mg PO DAILY 04/13/20 Unknown History tablet (Vitamin B-1) tamsulosin 0.4 mg capsule 0.4 mg PO DAILY 10/11/20 Unknown History memantine 5 mg tablet 5 mg PO DAILY 10/09/21 Unknown History amlodipine 5 mg tablet 5 mg PO BID #180 tabs 04/01/23 Unknown Rx lisinopril 20 1 tab PO BID #180 tabs 04/07/23 Unknown Rx mg-hydrochlorothiazide 12.5 mg tablet hydroxyurea 500 mg capsule 1,000 mg PO BID Check with primary 12/02/23 Unknown History doctor levothyroxine 150 mcg tablet 150 mcg PO DAILY 12/02/23 Unknown History phenytoin sodium extended 100 mg 300 mg PO QDAY seizures 12/02/23 Unknown History capsule Allergy/AdvReac Type Severity Reaction Status Date / Time No Known Allergies Allergy Verified 01/02/24 16:33 Family History Brother Heart disease, Onset Age: 69 AVR Surgical History Status post insertion of dialysis catheter (08/19/19) Social History Smoking Status: Never smoker ROS ROS ED Review of Systems ROS Unobtainable: other Constitutional Constitutional ED: Reports lethargy; Denies chills, fever(s), sweats or weight loss Eyes Eyes: Denies blurry vision, change in vision or diplopia ENT ENT ED: Denies rhinorrhea or sore throat Cardiovascular Cardiovascular: Denies chest pain, orthopnea or racing heartbeat Respiratory/Chest Respiratory/Chest: Denies cough, dyspnea, dyspnea on exertion, orthopnea or sputum Gastrointestinal Gastrointestinal: Denies abdominal pain, diarrhea, nausea or vomiting Genitourinary Genitourinary ED: Denies dysuria, hematuria or urinary frequency Musculoskeletal Musculoskeletal: Denies arthralgias, back pain, myalgias or neck pain Integumentary Denies abscess, Abrasions or rash Neurologic Neurologic: Reports weakness; Denies headache(s) Psychiatric Psychiatric: Denies anxiety, depression or suicidal thoughts Endocrine Endocrinology: Denies polydipsia, polyphagia or polyuria Hematologic/Lymphatic Hematologic/Lymphatic: Denies easy bleeding, easy bruising or lymphadenopathy Allergic/Immunologic Allergic/Immunologic ED: Denies mouth swelling, tongue swelling or urticaria EXAM Physical Exam Const Vital Signs: 01/02/24 16:33 01/02/24 18:46 Temperature 97.2 F L Temperature Source Temporal Pulse Rate 60 Pulse Rate [Lying] 60 Pulse Rate [Sitting (for 1 minute prior to obtaining)] 59 L Pulse Rate [Standing (for 1 minute prior to obtaining)] 64 Respiratory Rate 16 Blood Pressure 134/50 H Blood Pressure [Lying] 171/54 H Blood Pressure [Sitting (for 1 minute prior to obtaining)] 158/81 H Blood Pressure [Standing (for 1 minute prior to obtaining)] 126/94 H Blood Pressure Mean 78 Blood Pressure Mean [Lying] 93 Blood Pressure Mean [Sitting (for 1 minute prior to obtaining)] 106 Blood Pressure Mean [Standing (for 1 minute prior to obtaining)] 104 Pulse Ox 100 Oxygen Delivery Method Room Air Positive well nourished and well developed General Appearance ED: well developed and NAD HEENT Reports TM's clear and moist mucous membranes normocephalic and atraumatic; Negative for trauma or tenderness Tympanic Membrane ED: Yes TM's clear Eyes PERRL and EOMs intact bilaterally General Eye ED: Negative for pale conjunctiva or scleral icterus Neck no lymphadenopathy, supple and no JVD General: Negative for tenderness Chest Wall inspection of chest normal and palpation of chest normal Chest: Negative for tenderness Resp normal respiratory effort and clear to auscultation bilaterally Effort and Inspection: Negative for respiratory distress or pain with movement Auscultation: Negative for rhonchi, wheezes or diminished lung sounds Cardio regular rate, regular rhythm, S1 normal heart sound, S2 normal heart sound and no murmurs Peripheral Pulses: pulses 2+ throughout GI normal to inspection, nondistended, normoactive bowel sounds, soft to palpation, non-tender, non-distended and no masses GI Narrative: Rectal exam performed. He had brown stool. No masses noted in the rectal vault. Back/Spine no CVA tenderness and no thoracic nor lumbar tenderness Extremity normal to inspection General Extremety ED: Negative for edema General Extremity: Negative for edema Neuro oriented x3, CN's II-XII intact bilaterally, no sensory deficits noted and gait normal Sensorium / Orientation: awake, alert, oriented to person, oriented to place and oriented to time Motor Exam: strength 5/5 throughout and strength abnormal Psych mental status grossly normal Skin no rashes or lesions noted and no wounds MDM MDM MDM Narrative Medical decision making narrative: Patient presents with anemia with prior history of anemia and thrombocytosis. Denies any bleeding issues. Clinically looks well. IV line established. CBC with differential white count 2.4 with hemoglobin 7.3 and platelet count of 214. Chemistries unremarkable. BUN 37 creatinine 1.36. Hemoccult was negative. Discussed case with Dr. Cortes who asked that I speak with Dr. Ruby. Actually Dr. King was covering for Dr. Ruby who recommended transfusing patient a few units and follow-up with . I ordered 2 units of packed red cells and discussed case with hospitalist will evaluate patient for admission Lab Data Attestation: I reviewed the patient's lab results. Labs: Laboratory Results - last 24 hr 01/02/24 16:53 WBC 2.4 L RBC 1.61 L Hgb 7.3 L Hct 21.5 L MCV 133.5 H MCH 45.3 H MCHC 34.0 RDW Std Deviation 83.7 H RDW Coeff of Nacho 17.1 H Plt Count 214 MPV 9.1 Immature Gran % (Auto) 0.800 Neut % (Auto) 69.6 Lymph % (Auto) 21.3 [place] % (Auto) 7.9 Eos % (Auto) 0.0 Baso % (Auto) 0.4 Absolute Neuts (auto) 1.7 L Absolute Lymphs (auto) 0.51 L Nucleated RBC % 0 Diff Path Review May foll Platelet Estimate ADEQUATE Anisocytosis 2+ Ovalocytes RARE Sodium 138 Potassium 4.6 Chloride 107 Carbon Dioxide 26.0 Anion Gap 5 BUN 37 H Creatinine 1.36 H Estim Creat Clear Calc 49.16 Est GFR (MDRD) Af Amer 64 Est GFR (MDRD) Non-Af 53 L BUN/Creatinine Ratio 27.2 H Glucose 124 H Calcium 8.8 Blood Type A NEGATIVE Antibody Screen NEGATIVE Discharge Plan Triage Chief Complaint: Abn Labs ED Provider: Fara Schmitt Dx/Rx/DC Orders Clinical Impression: Anemia, Orthostatic hypotension, Leukopenia Prescriptions: No Action thiamine HCl (vitamin B1) [Vitamin B-1] 250 mg tablet 500 mg PO DAILY ergocalciferol (vitamin D2) 1,250 mcg (50,000 unit) capsule 50,000 unit PO QWEEK tamsulosin 0.4 mg capsule 0.4 mg PO DAILY memantine 5 mg tablet 5 mg PO DAILY Patient Comments: TAKE 1 TABLET BY MOUTH ONCE DAILY phenytoin sodium extended 100 mg capsule 300 mg PO QDAY Patient Comments: TAKES 130 MG BID aspirin 81 MG tablet,chewable 81 mg PO DAILY@1000 0RF hydroxyurea 500 mg capsule 1,000 mg PO BID levothyroxine 150 mcg tablet 150 mcg PO DAILY Rx Instructions: one tab daily and 1/2 tab one day a week amlodipine 5 mg tablet 5 mg PO BID Qty: 180 3RF lisinopril-hydrochlorothiazide 20-12.5 mg tablet 1 tab PO BID Qty: 180 3RF Primary Care Provider: Nimesh Daigle Referrals: Nimesh Daigle MD [Primary Care Provider] - Print Language: Italian Disposition Disposition: Acute Care Hospital [facility]
[2024-01-02 17:19] LABS: Absolute Lymphocyte Count 0.51 X10^3/uL (0.83-4.51); Absolute Neutrophil Count 1.7 X10^3/uL (2.0-7.7); Basophil# 0.01 X10^3/uL; Basophil% 0.4 % (0-1); Hematocrit 21.5 % (40-54); Hemoglobin 7.3 g/dL (13.0-16.5); Lymphocyte # 0.51 X10^3/ul (0.83-4.51); Lymphocyte % 21.3 % (19-41); Mean Corpuscular Hgb 45.3 pg (27.0-32.0); Mean Corpuscular Volume 133.5 fL (80-94); Mean Platelet Vol. 9.1 fl (6.2-12.0); Monocyte# 0.19 X10^3/uL; Monocyte% 7.9 % (0-10); NRBC Flagged by Analyzer 0 % (0-5); Neutrophil # 1.66 X10^3/uL (2.7-7.7); Neutrophil % 69.6 % (47-70); POSITIVE DIFFERENTIAL YES; POSITIVE MORPHOLOGY YES; Platelet Count 214 K/mm3 (150-450); RBC Distribution Width CV 17.1 % (11.6-14.6); RBC Distribution Width SD 83.7 fl (35.1-43.9); Red Blood Count 1.61 M/mm3 (4.6-6.2); White Blood Count 2.4 K/mm3 (4.4-11.0)
[2024-01-02 17:26] LABS: Anion Gap 5 (5-15); BUN 37 mg/dL (7-18); BUN/Creat Ratio 27.2 RATIO (10-20); Calcium,Total 8.8 mg/dL (8.5-10.1); Chloride 107 mmol/L (98-107); Creatinine, Serum 1.36 mg/dL (0.70-1.30); EST Glomerular Filtration Rate 53 mL/min (>60); Est Glom Filt Rate - Afr Amer 64 mL/min (>60); Estimated Creatinine Clearance 49.16 ml/min; Glucose 124 mg/dL (74-106); Potassium 4.6 mmol/L (3.5-5.1); Sodium Level 138 mmol/L (136-145)
[2024-01-02 17:51] LABS: Differential Indicated SCAN CRITERIA MET
[2024-01-02 18:12] LABS: Anisocytosis 2+; Ovalocyte RARE; Platelet Estimate ADEQUATE (ADEQ)
--- NOTE | 2024-01-02 19:39 | HP.PCM.HOS_ITS ---
[facility] - General General Date of Admission: 01/02/24 Date of Service: 01/02/24 Chief Complaint: Abnormal Labs and Fatigue with Low Hemoglobin. HPI Narrative MERRICK MUÑOZ, is a 83 M with a past medical history of essential hypertension, history of hypertriglyceridemia, hypothyroidism, obesity; with BMI of 31 this admission, BARTOLO, history of essential thrombocythemia; on Hydrea, CAD; s/p NSTEMI on chronic BASA, history of seizures; on Phenytoin, history of COVID-19, history of LI; with history of insertion of HD catheter (2019), history of renal calculi, BPH; on Tamsulosin and OA who presents to [facility] ER complaining of abnormal labs and fatigue with low hemoglobin. Mr. Muñoz reports he has not had much energy over the entire summer but his acute symptoms began ~3 weeks prior to admission with a significant decrease in exercise tolerance and worsening ROE. He then went to his PCP and had labs drawn earlier today that revealed a hemoglobin of 7.3 g/dL (down form his baseline of ~11 g/dL) and he was then instructed to come in to the ER for further evaluation and treatment. He denies associated blood in stools or dark, tarry stools, hematuria, other significant blood loss or recent illness. He also denies ever having received a blood transfusion before ans his stool Hemoccult was negative in the ER. There is no reported fever, chills, nausea, vomiting, diarrhea, constipation or chest pain. In the ER he was confirmed to have anemia with hemoglobin of 7.3 g/dL present on admission with electrocardiograph technician on-call recommending transfusion of PRBC's complicated by Leukopenia of 2.4K present on admission with CBC differential positive for 2+ anisocytosis suspicious for underlying hematologic malignancy complicated by Severe Fatigue and Lethargy and he was then admitted to the PCU for ongoing care for a stay that is expected to extend beyond 2 midnights. [facility] Medical History BARTOLO (obstructive sleep apnea) Renal calculi History of non-ST elevation myocardial infarction (NSTEMI) (08/13/19) Essential (primary) hypertension Hypothyroidism Elevated troponin I level Myeloproliferative neoplasm Thrombocythemia, essential LI (acute kidney injury) (08/13/19) SARS-associated coronavirus infection (08/13/19) Seizures COVID-19 (08/13/19) Home Medications ?Medication ?Instructions ?Recorded ?Last Taken ?Type aspirin 81 mg chewable tablet 81 mg PO DAILY@1000 [facility] 09/01/19 Unknown Rx ergocalciferol (vitamin D2) 1,250 50,000 unit PO QWEEK vitamin 04/13/20 Unknown History mcg (50,000 unit) capsule thiamine HCl (vitamin B1) 250 mg 500 mg PO DAILY vitamin 04/13/20 Unknown History tablet (Vitamin B-1) tamsulosin 0.4 mg capsule 0.4 mg PO DAILY bladder 10/11/20 Unknown History memantine 5 mg tablet 5 mg PO DAILY seizures 10/09/21 Unknown History amlodipine 5 mg tablet 5 mg PO BID blood pressure #180 04/01/23 Unknown Rx tabs lisinopril 20 1 tab PO BID bp #180 tabs 04/07/23 Unknown Rx mg-hydrochlorothiazide 12.5 mg tablet hydroxyurea 500 mg capsule 1,000 mg PO BID Check with primary 12/02/23 Unknown History doctor levothyroxine 150 mcg tablet 150 mcg PO DAILY thyriod 12/02/23 Unknown History phenytoin sodium extended 100 mg 300 mg PO QDAY seizures 12/02/23 Unknown History capsule Allergy/AdvReac Type Severity Reaction Status Date / Time No Known Allergies Allergy Verified 01/02/24 16:33 Family History Brother Heart disease, Onset Age: 69 AVR Surgical History Status post insertion of dialysis catheter (08/19/19) Social History Smoking Status: Never smoker ROS ROS Narrative Review of Systems: Constitutional: Patient admits to lethargy but he denies fever or chills. Eyes: Patient denies changes in vision or discharge from eyes. ENT: Patient denies runny nose, sore throat or ear pain. Resp: Patient denies SOB or cough. CV: Patient denies chest pain, palpitations or heart racing. GI: Patient denies abdominal pain, nausea, vomiting, diarrhea or constipation. : Patient denies dysuria or hematuria. MSK: Patient denies arthralgias or myalgias. Skin: Patient denies rash, abscess or jaundice. Psych: Patient denies symptoms of uncontrolled depression or anxiety. Neuro: Patient admits to intermittent dizziness as per HPI. Hematology: Patient denies easy bleeding or easy bruisability. Endocrinology: Patient denies polyuria, polydipsia or polyphagia. 14 point ROS otherwise negative except for positives noted above. Vital Signs Vital Signs Vital Signs: 01/02/24 16:33 01/02/24 18:46 Temperature 97.2 F L Temperature Source Temporal Pulse Rate 60 Pulse Rate [Lying] 60 Pulse Rate [Sitting (for 1 minute prior to obtaining)] 59 L Pulse Rate [Standing (for 1 minute prior to obtaining)] 64 Respiratory Rate 16 Blood Pressure 134/50 H Blood Pressure [Lying] 171/54 H Blood Pressure [Sitting (for 1 minute prior to obtaining)] 158/81 H Blood Pressure [Standing (for 1 minute prior to obtaining)] 126/94 H Blood Pressure Mean 78 Blood Pressure Mean [Lying] 93 Blood Pressure Mean [Sitting (for 1 minute prior to obtaining)] 106 Blood Pressure Mean [Standing (for 1 minute prior to obtaining)] 104 Pulse Ox 100 Oxygen Delivery Method Room Air Weight Weight: 216 lb Body Mass Index (BMI) 30.9 Physical Exam Const alert, oriented x3, no apparent distress, average body habitus and healthy appearing General Appearance: cooperative HEENT normocephalic, head/scalp atraumatic, hearing grossly normal bilaterally and moist oral mucous membranes Eyes PERRL and EOMs intact bilaterally Neck no lymphadenopathy and supple Resp normal respiratory effort, no retractions, no use of accessory muscles and clear to auscultation bilaterally Cardio regular rate and regular rhythm GI normal to inspection, nondistended, normoactive bowel sounds, soft to palpation, non-tender and non-distended Extremity normal to inspection, full ROM and no clubbing, cyanosis or edema Skin Skin Narrative: Patient has no evidence of rash, abscess or jaundice. Neuro oriented x3, CN's II-XII intact bilaterally, moves all extremities and no focal motor deficits Sensorium / Orientation: awake, alert, oriented to person, oriented to place and oriented to time Speech: speech normal Psych affect normal Results Medical Records Data Attestation: I reviewed the patient's medical records Lab / Micro Data Attestation: I reviewed the patient's lab results. 01/02/24 16:53 01/02/24 16:53 Labs: Laboratory Results - last 24 hr 01/02/24 16:53: WBC 2.4 L, RBC 1.61 L, Hgb 7.3 L, Hct 21.5 L, MCV 133.5 H, MCH 45.3 H, MCHC 34.0, RDW Std Deviation 83.7 H, RDW Coeff of Nacho 17.1 H, Plt Count 214, MPV 9.1, Immature Gran % (Auto) 0.800, Neut % (Auto) 69.6, Lymph % (Auto) 21.3, [place] % (Auto) 7.9, Eos % (Auto) 0.0, Baso % (Auto) 0.4, Absolute Neuts (auto) 1.7 L, Absolute Lymphs (auto) 0.51 L, Nucleated RBC % 0, Diff Path Review July foll, Platelet Estimate ADEQUATE, Anisocytosis 2+, Ovalocytes RARE, Sodium 138, Potassium 4.6, Chloride 107, Carbon Dioxide 26.0, Anion Gap 5, BUN 37 H, C reatinine 1.36 H, Estim Creat Clear Calc 49.16, Est GFR (MDRD) Af Amer 64, Est GFR (MDRD) Non-Af 53 L, BUN/Creatinine Ratio 27.2 H, Glucose 124 H, Calcium 8.8, Blood Type A NEGATIVE, Antibody Screen NEGATIVE Micro: Microbiology 01/02/24 18:05 Stool Stool Occult Blood (JHONATAN) - Final Assessment & Plan Assessment/Plan (1) Anemia: QUALIFIERS: Anemia type: unspecified type Qualified Code(s): D 64.9 - Anemia, unspecified (2) Leukopenia: QUALIFIERS: Leukopenia type: unspecified Qualified Code(s): D 72.819 - Decreased white blood cell count, unspecified (3) Lethargy: (4) Fatigue: QUALIFIERS: Fatigue type: unspecified Qualified Code(s): R53.83 - Other fatigue PLAN: Plan 1. Anemia with hemoglobin of 7.3 g/dL present on admission with electrocardiograph technician on-call recommending transfusion of PRBC's complicated by Leukopenia of 2.4K present on admission with CBC differential positive for 2+ anisocytosis suspicious for underlying hematologic malignancy - Admit to PCU. Proceed with transfusion of PRBC's ordered in the ER and then recheck CBC in AM to confirm improvement. Finally, we will consult hematology to see this patient on-rounds in the AM for further recommendations regarding bone marrow biopsy this admission with help appreciated in advance. 2. Progressively worsening Severe Fatigue and Lethargy attributable to #1 - PT/OT and Case Management to consult in the AM on-rounds for further recommendations with help appreciated in advance. 3. History of essential thrombocythemia; on Hydrea complicating #1 & #2 - Platelet count stable at 214K present on admission. 4. Essential hypertension - Hold scheduled antihypertensives until blood volume is repleted. Give IV Hydralazine for systolic blood pressure > 160 mmHg. 5. History of hypertriglyceridemia - Noted. Check Lipid Profile this admission. 6. Hypothyroidism - Resume Synthroid as previous. Check TSH. 7. Obesity; with BMI of 31 this admission plus BARTOLO - Weight loss will be recommended. 8. CAD; s/p NSTEMI on chronic BASA - Noted. 9. History of seizures; on Phenytoin - Check Phenytoin level and if in therapeutic range continue as before. 10. History of COVID-19 - Noted. 11. History of LI; with history of insertion of HD catheter (2019) - Noted. 12. History of renal calculi - Noted with no signs of recurrence at this time. 13. BPH; on Tamsulosin - Maintain Tamsulosin as previous, 14. OA - Give Tylenol prn. 15. DVT prophylaxis - SCD's only in light of #1. Total time: Approximately 75 minutes. Charges/Coding Visit Charges Inpatient E&M: 11739 Init Hosp L3
[2024-01-02] MEDS: Hydroxyurea 500 MG Capsule 1000 MG PO (22:33)
[2024-01-02 22:40] LABS: Cholesterol 150 mg/dL (200); High Density Lipoprotein 57 mg/dL; Triglycerides 60 mg/dL; Very Low Density Lipoprotein 12 mg/dL (5-40)
[2024-01-03 00:03] VITALS: BP 142/63; PULSE 54; RESP 16; TEMP 36.3; O2SAT 100
[2024-01-03] MEDS: Phenytoin Na 100 MG Capsule 300 MG PO (00:12)
[2024-01-03 00:18] VITALS: BP 138/59; PULSE 53; RESP 16; TEMP 36.6; O2SAT 100
[2024-01-03 01:18] VITALS: BP 136/59; PULSE 56; RESP 16; TEMP 37.1; O2SAT 99
[2024-01-03] MEDS: Acetaminophen 325 MG Tablet 650 MG PO (02:05)
[2024-01-03 02:35] VITALS: BP 132/69; PULSE 62; RESP 16; TEMP 36.9; O2SAT 99
[2024-01-03 03:07] VITALS: BMI 29.9
[2024-01-03] MEDS: Levothyroxine 150 MCG Tablet PO (05:51)
[2024-01-03 07:07] LABS: Absolute Lymphocyte Count 0.43 X10^3/uL (0.83-4.51); Absolute Neutrophil Count 1.6 X10^3/uL (2.0-7.7); Basophil# 0.01 X10^3/uL; Basophil% 0.5 % (0-1); Lymphocyte # 0.43 X10^3/ul (0.83-4.51); Lymphocyte % 19.7 % (19-41); Mean Corp Hgb Conc 34.8 g/dL (32-36); Mean Corpuscular Hgb 42.6 pg (27.0-32.0); Mean Corpuscular Volume 122.3 fL (80-94); Mean Platelet Vol. 9.1 fl (6.2-12.0); Monocyte# 0.17 X10^3/uL; Monocyte% 7.8 % (0-10); NRBC Flagged by Analyzer 0 % (0-5); Neutrophil # 1.55 X10^3/uL (2.7-7.7); Neutrophil % 71.1 % (47-70); POSITIVE DIFFERENTIAL YES; POSITIVE MORPHOLOGY YES; Platelet Count 188 K/mm3 (150-450); Red Blood Count 1.88 M/mm3 (4.6-6.2); White Blood Count 2.2 K/mm3 (4.4-11.0)
[2024-01-03 07:47] LABS: Differential Indicated SCAN CRITERIA MET
[2024-01-03 07:48] LABS: Anisocytosis 2+
[2024-01-03 07:52] VITALS: BP 136/60; PULSE 53; RESP 16; TEMP 36.8; O2SAT 98
--- NOTE | 2024-01-03 08:03 | PN.HOSP_ITS ---
Reason for Visit Reason for Visit: Diagnoses Anemia, unspecified (01/02/24) Decreased white blood cell count, unspecified (01/02/24) Other fatigue (01/02/24) Subjective Subjective Feels ok. Has noted that he has been more short of breath with activities over the summer. Normally Tills his garden without difficulty but has had increasing difficulty over the summer. Objective Data Objective Data Vital Signs: Vital Signs Temp Pulse Resp BP Pulse Ox O2 Del Method O2 Flow Rate 36.8 C 53 L 16 136/60 H 98 Nasal Cannula 2 01/03/24 07:52 01/03/24 07:52 01/03/24 07:52 01/03/24 07:52 01/03/24 07:52 01/03/24 07:52 01/03/24 07:52 Oxygen Flow Rate (L/min) 2 Oxygen Delivery Method Nasal Cannula Weight: 94.7 kg Body Mass Index (BMI) 29.9 Intake & Output: Intake and Output for Last 24 Hours 01/01/24 01/02/24 01/03/24 23:59 23:59 23:59 Intake Total 288 / 288 287 / 287 Balance 288 / 288 287 / 287 Lab / Micro Data 01/03/24 06:32 01/03/24 06:32 Labs: Laboratory Results - last 24 hr 01/02/24 16:53: WBC 2.4 L, RBC 1.61 L, Hgb 7.3 L, Hct 21.5 L, MCV 133.5 H, MCH 45.3 H, MCHC 34.0, RDW Std Deviation 83.7 H, RDW Coeff of Nacho 17.1 H, Plt Count 214, MPV 9.1, Immature Gran % (Auto) 0.800, Neut % (Auto) 69.6, Lymph % (Auto) 21.3, [place] % (Auto) 7.9, Eos % (Auto) 0.0, Baso % (Auto) 0.4, Absolute Neuts (auto) 1.7 L, Absolute Lymphs (auto) 0.51 L, Nucleated RBC % 0, Diff Path Review July, Platelet Estimate ADEQUATE, Anisocytosis 2+, Ovalocytes RARE, Sodium 138, Potassium 4.6, Chloride 107, Carbon Dioxide 26.0, Anion Gap 5, BUN 37 H, C reatinine 1.36 H, Estim Creat Clear Calc 49.16, Est GFR (MDRD) Af Amer 64, Est GFR (MDRD) Non-Af 53 L, BUN/Creatinine Ratio 27.2 H, Glucose 124 H, Calcium 8.8, Blood Type A NEGATIVE, Antibody Screen NEGATIVE, Crossmatch See Detail 01/02/24 21:36: Triglycerides 60, Cholesterol 150, LDL Cholesterol 81, VLDL Cholesterol 12, HDL Cholesterol 57 01/03/24 06:32: WBC 2.2 L, RBC 1.88 L, Hgb 8.0 L, Hct 23.0 L, MCV 122.3 H D, MCH 42.6 H, MCHC 34.8, RDW Std Deviation Not Reportable, RDW Coeff of Nacho Not Reportable, Plt Count 188, MPV 9.1, Immature Gran % (Auto) 0.900, Neut % (Auto) 71.1 H, Lymph % (Auto) 19.7, [place] % (Auto) 7.8, Eos % (Auto) 0.0, Baso % (Auto) 0.5, Absolute Neuts (auto) 1.6 L, Absolute Lymphs (auto) 0.43 L, Nucleated RBC % 0, Diff Path Review May foll, Anisocytosis 2+ Micro: Microbiology 01/02/24 18:05 Stool Stool Occult Blood (JHONATAN) - Final Physical Exam Const alert and no apparent distress HEENT head/scalp atraumatic and moist oral mucous membranes Psych affect normal Assessment & Plan Assessment/Plan (1) Anemia: QUALIFIERS: Anemia type: unspecified type Qualified Code(s): D 64.9 - Anemia, unspecified (2) Leukopenia: QUALIFIERS: Leukopenia type: unspecified Qualified Code(s): D 72.819 - Decreased white blood cell count, unspecified (3) Lethargy: (4) Fatigue: QUALIFIERS: Fatigue type: unspecified Qualified Code(s): R53.83 - Other fatigue PLAN: Plan Anemia * Hg 7.3 (11.5 on 09/23) on admission. Improved after transfusion to 8. * Macrocytic * s/p 2 units PRBCs * follow up with Dr. Ruby. Patient asked about the etiology, some of that may be more of a production issue with his bone marrow but blood loss may be another possibility. Seems very less likely to be hemolytic. * TSH within normal limits. Pending, B12, folate. Chronic conditions: * leukopenia: chronic * History of essential thrombocythemia; on Hydrea. Stable. * Essential hypertension: continue amlodipine. * hypothyroidism: levothyroxine. 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 * CAD: continue statin. * seizure d/o: on phenytoin. level pending. VTE prophylaxis: SCDs.
[2024-01-03 08:41] LABS: ALB/GLOB Ratio 0.8 RATIO (0.9-2.4); AST(SGOT) 10 U/L (15-37); Alanine Aminotransfer ALT/SGPT 11 U/L (16-61); Albumin, Serum 2.6 g/dL (3.2-5.0); Alkaline Phosphatase 64 U/L (45-117); Anion Gap 7 (5-15); BUN 34 mg/dL (7-18); BUN/Creat Ratio 35.4 RATIO (10-20); Calcium,Total 8.4 mg/dL (8.5-10.1); Chloride 109 mmol/L (98-107); Creatinine, Serum 0.96 mg/dL (0.70-1.30); EST Glomerular Filtration Rate 80 mL/min (>60); Est Glom Filt Rate - Afr Amer 96 mL/min (>60); Estimated Creatinine Clearance 68.54 ml/min; Globulin 3.1 g/dL (2.2-4.2); Glucose 133 mg/dL (74-106); Magnesium 1.9 mg/dL (1.6-2.6); Potassium 4.3 mmol/L (3.5-5.1); Protein, Total 5.7 g/dL (6.4-8.2); Sodium Level 140 mmol/L (136-145)
[2024-01-03] MEDS: Thiamine Hydrochloride 100 MG Tablet 500 MG PO (08:53)
[2024-01-03] MEDS: Tamsulosin HCl 0.4 MG Capsule PO (08:54)
[2024-01-03] MEDS: Hydroxyurea 500 MG Capsule 1000 MG PO (08:54)
[2024-01-03] MEDS: Aspirin 81 MG TAB.CHEW PO (08:54)
[2024-01-03] MEDS: Memantine Hydrochloride 5 MG Tablet PO (08:55)
[2024-01-03] MEDS: amLODIPine 5 MG Tablet PO (09:13)
[2024-01-03] MEDS: Lisinopril 20 MG Tablet PO (09:13)
--- NOTE | 2024-01-03 10:28 | DS.PCM_ITS ---
Providers Date of Admission: 01/02/24 Primary Care Physician: Dr. Nimesh Daigle MD Reason For Visit: ACUTE ANEMIA WITH SUSPECTED HEMATOLOGIC NEOPLASM Diagnosis Discharge Diagnosis (1) Anemia: Status: Acute Code(s): D64.9 - Anemia, unspecified Qualifiers: Anemia type: unspecified type Qualified Code(s): D64.9 - Anemia, unspecified (2) Leukopenia: Status: Acute Code(s): D72.819 - Decreased white blood cell count, unspecified Qualifiers: Leukopenia type: unspecified Qualified Code(s): D72.819 - Decreased white blood cell count, unspecified (3) Lethargy: Status: Acute Code(s): R53.83 - Other fatigue (4) Fatigue: Status: Resolved Code(s): R53.83 - Other fatigue Qualifiers: Fatigue type: unspecified Qualified Code(s): R53.83 - Other fatigue Plan Anemia * Hg 7.3 (11.5 on 09/23) on admission. Improved after transfusion to 8. * Macrocytic * s/p 2 units PRBCs * follow up with Dr. Ruby. Patient asked about the etiology, some of that may be more of a production issue with his bone marrow but blood loss may be another possibility. Seems very less likely to be hemolytic. * TSH within normal limits. Pending, B12, folate. Chronic conditions: * leukopenia: chronic * History of essential thrombocythemia; on Hydrea. Stable. * Essential hypertension: continue amlodipine. * hypothyroidism: levothyroxine. 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 * CAD: continue statin. * seizure d/o: on phenytoin. level pending. VTE prophylaxis: SCDs. Medications at Discharge Home Medications aspirin 81 mg chewable tablet 81 mg PO DAILY@1000 [facility] 09/01/19 ergocalciferol (vitamin D2) 1,250 mcg (50,000 unit) capsule 50,000 unit PO QWEEK vitamin 04/13/20 thiamine HCl (vitamin B1) 250 mg tablet (Vitamin B-1) 500 mg PO DAILY vitamin 04/13/20 tamsulosin 0.4 mg capsule 0.4 mg PO DAILY bladder 10/11/20 memantine 5 mg tablet 5 mg PO DAILY seizures 10/09/21 amlodipine 5 mg tablet 5 mg PO BID blood pressure #180 tabs 04/01/23 lisinopril 20 mg-hydrochlorothiazide 12.5 mg tablet 1 tab PO BID bp #180 tabs 04/07/23 hydroxyurea 500 mg capsule 1,000 mg PO BID Check with primary doctor 12/02/23 levothyroxine 150 mcg tablet 150 mcg PO DAILY thyriod 12/02/23 phenytoin sodium extended 100 mg capsule 300 mg PO QDAY seizures 12/02/23 Hospital Course Operations None Procedures None Summary of Care Provided Minutes Spent on Discharge: 35 Hospital Course: Patient presents here for anemia. Patient has been short of breath over the summer and had hemoglobin that was noted to be 7 and sent to the emergency room. Patient was transfused 2 units of packed blood cells. Feeling okay now. His hemoglobin is currently 8. His TSH was unremarkable. Dr. King, of [facility] oncology, was notified and recommended patient is doing better to follow-up with his dead mail checker, Dr. Ruby. Patient improved much faster than initially anticipated on admission. Weight / BMI Weight Weight: 94.7 kg Body Mass Index (BMI) 29.9 ABG / Lab / Microbiology Data 01/03/24 06:32 01/03/24 06:32 Laboratory: Laboratory Results - last 24 hr 01/02/24 16:53: WBC 2.4 L, RBC 1.61 L, Hgb 7.3 L, Hct 21.5 L, MCV 133.5 H, MCH 45.3 H, MCHC 34.0, RDW Std Deviation 83.7 H, RDW Coeff of Nacho 17.1 H, Plt Count 214, MPV 9.1, Immature Gran % (Auto) 0.800, Neut % (Auto) 69.6, Lymph % (Auto) 21.3, [place] % (Auto) 7.9, Eos % (Auto) 0.0, Baso % (Auto) 0.4, Absolute Neuts (auto) 1.7 L, Absolute Lymphs (auto) 0.51 L, Nucleated RBC % 0, Diff Path Review May , Platelet Estimate ADEQUATE, Anisocytosis 2+, Ovalocytes RARE, Sodium 138, Potassium 4.6, Chloride 107, Carbon Dioxide 26.0, Anion Gap 5, BUN 37 H, C reatinine 1.36 H, Estim Creat Clear Calc 49.16, Est GFR (MDRD) Af Amer 64, Est GFR (MDRD) Non-Af 53 L, BUN/Creatinine Ratio 27.2 H, Glucose 124 H, Calcium 8.8, Blood Type A NEGATIVE, Antibody Screen NEGATIVE, Crossmatch See Detail 01/02/24 21:36: Triglycerides 60, Cholesterol 150, LDL Cholesterol 81, VLDL Cholesterol 12, HDL Cholesterol 57 01/03/24 06:32: WBC 2.2 L, RBC 1.88 L, Hgb 8.0 L, Hct 23.0 L, MCV 122.3 H D, MCH 42.6 H, MCHC 34.8, RDW Std Deviation Not Reportable, RDW Coeff of Nacho Not Reportable, Plt Count 188, MPV 9.1, Immature Gran % (Auto) 0.900, Neut % (Auto) 71.1 H, Lymph % (Auto) 19.7, [place] % (Auto) 7.8, Eos % (Auto) 0.0, Baso % (Auto) 0.5, Absolute Neuts (auto) 1.6 L, Absolute Lymphs (auto) 0.43 L, Nucleated RBC % 0, Diff Path Review May foll, Anisocytosis 2+, Sodium 140, Potassium 4.3, C hloride 109 H, Carbon Dioxide 24.0, Anion Gap 7, BUN 34 H, Creatinine 0.96, Estim Creat Clear Calc 68.54, Est GFR (MDRD) Af Amer 96, Est GFR (MDRD) Non-Af 80, BUN/Creatinine Ratio 35.4 H, Glucose 133 H, Calcium 8.4 L, Phosphorus 4.0, Magnesium 1.9, Total Bilirubin 0.50, AST 10 L, ALT 11 L, Alkaline Phosphatase 64, Total Protein 5.7 L, Albumin 2.6 L, Globulin 3.1, Albumin/Globulin Ratio 0.8 L, TSH 2.660 Microbiology: Microbiology 01/02/24 18:05 Stool Stool Occult Blood (JHONATAN) - Final D/C Instructions Discharge Diet: No restrictions Meaningful Use Info Meaningful Use Meaningful Use Diagnoses (Choose all that apply): None applicable Ischemic Stroke Statin Dosing Therapy Reference: STATIN DOSE THERAPY REFERENCE: * Patients > 75 years receive moderate or high dose statin therapy. * Patients 75 years or YOUNGER should receive HIGH intensity statin dose unless contraindicated. You will be required to document reason for non-treatment if statin daily dose does not meet guidelines. HIGH DOSE STATIN THERAPY DAILY Atorvastatin > than or = to 40 mg Rosuvastatin > than or = to 20 mg Amlodipine + Atorvastatin > than or = to 2.5/40 mg Ezetimibe + Simvastatin 10/80 mg Simvastatin 80mg Discharge Plan Admission Admit Date/Time: 01/02/24 20:06 Primary Reason for Your Visit: Anemia Attending Provider: Jermain Zelaya Primary Care Provider: Nimesh Daigle Consulting Providers: Eric Liz Instructions Additional Instructions / Restrictions: You were transfused 2 units of packed red blood cells. Your anemia is likely why you are short of breath. You will need to follow-up with Dr. Rose to have further blood draws to see how your blood count is doing and also to determine what additional testing would be necessary to find out why you are anemic. Discharge Orders/Prescriptions Prescriptions: Continued thiamine HCl (vitamin B1) [Vitamin B-1] 250 mg tablet 500 mg PO DAILY ergocalciferol (vitamin D2) 1,250 mcg (50,000 unit) capsule 50,000 unit PO QWEEK tamsulosin 0.4 mg capsule 0.4 mg PO DAILY memantine 5 mg tablet 5 mg PO DAILY Patient Comments: TAKE 1 TABLET BY MOUTH ONCE DAILY phenytoin sodium extended 100 mg capsule 300 mg PO QDAY Patient Comments: TAKES 130 MG BID aspirin 81 MG tablet,chewable 81 mg PO DAILY@1000 0RF hydroxyurea 500 mg capsule 1,000 mg PO BID levothyroxine 150 mcg tablet 150 mcg PO DAILY Rx Instructions: one tab daily and 1/2 tab one day a week amlodipine 5 mg tablet 5 mg PO BID Qty: 180 3RF lisinopril-hydrochlorothiazide 20-12.5 mg tablet 1 tab PO BID Qty: 180 3RF Referrals / Follow Up: Nimesh Daigle MD [Primary Care Provider] - Within 2 Weeks Dez Ruby DO [Med Staff - Active Staff] - Within 1 Week Disposition Disposition (needs filled in before D/C Order can be placed): Home, Self Care Charges/Coding Visit Charges Inpatient E&M: 00169 Disch Hosp >30min
[2024-01-03 10:32] VITALS: BP 136/61; PULSE 53; RESP 16; TEMP 36.8; O2SAT 98
--- NOTE | 2024-01-03 11:20 | CASEMGMT ---
RN CM Face to Face with patient for initial transition planning/care coordination assessment. RN CM introduced self and role at [facility]. Patient lying in bed, alert and oriented. Patient willing to participate in assessment and is able to answer all questions appropriately. Care providers, pharmacy, and demographics verified. Strata: 2 PCP: [facility] Specialists: Barrington, pneumatic jack operator; Rohini, rail car mechanic; Tung, station supervisor; Preferred Pharmacy: [facility] Insurance: [facility] Prescription Benefit: yes Living Will/HPOA: yes, Ashly Muñoz LNOK: Living Arrangements: Patient lives with in a single story home with 2 steps and railing to enter the home. Patient is independent at home. Transportation: self, DME/HHC: Patient states he has shower chair, raised toilet, walker, cpap, pulse ox at home. No previous HHC or SNF Patient wishes to discharge home, denies need for home health at this time. Patient states he has no further needs or concerns at this time. CM to follow for discharge planning needs that may arise. Disposition Plan: Patient to discharge home with family support and follow-up plans in place. Chelly SALVADOR, RN, CM
[2024-01-04 08:08] LABS: Phenytoin (Dilantin) Level 15.2 ug/mL (10.0-20.0)
[2024-01-05 13:36] LABS: Pathologist Review Reviewed
[2024-01-05 13:38] LABS: Pathologist Review Reviewed
== END 2024-01-03 12:04 | disposition home or self-care (01) | DRG 812 ==
LOC: ED 19:43 → PCU 20:14
PROVIDERS: Admitting Provider Internal Medicine; Emergency Provider Emergency Medicine; PCP Family Medicine; Referring Provider Emergency Medicine
DX: D53.9 Nutritional anemia, unspecified (principal); D72.819 Decreased white blood cell count, unspecified; G40.909 Epilepsy, unspecified, not intractable, without status epilepticus; I10 Essential (primary) hypertension; E03.9 Hypothyroidism, unspecified; Z68.31 Body mass index [BMI] 31.0-31.9, adult; I25.10 Atherosclerotic heart disease of native coronary artery without angina pectoris; I95.1 Orthostatic hypotension; G47.33 Obstructive sleep apnea (adult) (pediatric); I25.2 Old myocardial infarction; E78.1 Pure hyperglyceridemia; N40.0 Benign prostatic hyperplasia without lower urinary tract symptoms; R53.83 Other fatigue; E66.811 Obesity, class 1; Z79.82 Long term (current) use of aspirin; Z79.890 Hormone replacement therapy; Z79.899 Other long term (current) drug therapy; Z86.16 Personal history of COVID-19
CPT/HCPCS: 36415; 80048; 80053; 80061; 82274; 82607; 82746; 83735; 84100; 84443; 85025; 86850; 86900; 86901; 86920; 94668; 97162; 97166; 99252; 99284; P9016; A4216; G0463

== ENCOUNTER → 2024-06-18 | Outpatient (CLI) | payer MEDICARE, SELFPAY | END | disposition home or self-care (01) | PROVIDERS: PCP Family Medicine; Referring Provider Nurse Practitioner Family; Visit Provider Nurse Practitioner Family | DX: R07.89 Other chest pain (principal); I10 Essential (primary) hypertension; R00.1 Bradycardia, unspecified | CPT/HCPCS: 93225; 93226 ==

== ENCOUNTER → 2024-07-22 | Outpatient (CLI) | payer MEDICARE, SELFPAY ==
--- NOTE | 2024-07-22 13:03 | CT_ITS ---
PROCEDURE: LIMITED CHEST CT CARDIAC ONLY REASON FOR EXAM: CHEST PAIN. TECHNIQUE: Contiguous axial scans of 2.5 mm slice thicknesses. One or more dose reduction techniques were used (e.g., automated exposure control, adjustment of mA and/or kv according to patient size, use of iterative reconstruction technique). Evaluation is limited to the non-coronary cardiac findings in non-cardiac findings. Only those areas demonstrated within the [id number] were evaluated. COMPARISON: Chest radiograph dated 04/01/2023. FINDINGS: Non-Coronary Cardiac Findings: The myocardium, valves and pericardium have a normal appearance. Non-Cardiac Findings: Lungs: Clear. Small subpleural calcified granuloma along the dependent right lower lobe, axial image number 44. Pleural spaces: No fluid, pneumothorax or thickening. Mediastinum:The visualized mediastinum is normal with no lymphadenopathy. Pulmonary vessels: Unremarkable. Chest wall: Unremarkable. Upper abdomen and bones: Multilevel spondylosis. CT/Limited Chest CT Cardiac Only IMPRESSION: UNREMARKABLE LIMITED CHEST CT NON-CORONARY AND NON-CARDIAC ANATOMY ONLY. Other nonacute findings detailed above. Reading Location: [facility]
[2024-07-22 13:15] VITALS: BP 166/51; PULSE 54; RESP 16; O2SAT 98; BMI 31.5
[2024-07-22 13:40] LABS: CREATININE FINGERSTICK 1.3 mg/dL (0.70-1.30)
[2024-07-22 14:00] VITALS: PULSE 54
[2024-07-22] MEDS: Nitroglycerin SL (ED/IMG/CATH) 0.4 MG TABLET SL (14:00)
[2024-07-22 14:04] VITALS: BP 149/61; PULSE 54; RESP 16; O2SAT 98
--- NOTE | 2024-07-22 17:08 | CCTA.WCONT ---
CCTA w/Cont Coronary Arteries Date of Study:: 07/22/24 Chest pain Coronary Calcium Scoring: High-resolution Computed Tomographic imaging of the chest was performed on [07/22/24 ], with particular attention paid to the coronary arteries. Intravenous contrast agent was administered per protocol and images reconstructed and displayed. LEFT MAIN CORONARY ARTERY: Left main coronary artery arises from the left coronary ostium with no significant calcification present bifurcates to left anterior descending artery left circumflex artery. [] LEFT ANTERIOR DESCENDING CORONARY ARTERY: Left anterior descending artery has significant calcification in the proximal and mid segments with at least moderate occlusion noted. Distally there is mild diffuse stenosis noted. [] LEFT CIRCUMFLEX CORONARY ARTERY: Left circumflex artery is a nondominant vessel with scattered calcification in the proximal mid and distal segments with nonocclusive plaquing present. [ RIGHT CORONARY ARTERY: Dominant right coronary artery with scattered calcification noted with nonocclusive plaque present. Conclusion: CT angiogram demonstrating severe calcification noted in the proximal and mid left anterior descending segments with at least moderate occlusion noted and mild diffuse calcification noted in the other 2 vessels.
== END | disposition home or self-care (01) ==
LOC: CT 12:50
PROVIDERS: PCP Family Medicine; Referring Provider Nurse Practitioner Family; Visit Provider Nurse Practitioner Family
DX: R07.89 Other chest pain (principal); I10 Essential (primary) hypertension; R00.1 Bradycardia, unspecified
CPT/HCPCS: 75574; 76380; Q9967

== ENCOUNTER 2025-01-20 18:42 | Emergency (ER) | payer MEDICARE, SELFPAY ==
[2025-01-20] VITALS (15 sets, daily range): BP systolic 126–168; BP diastolic 64–86; PULSE 50–66; RESP 12–18; TEMP 36.3–36.8; O2SAT 98–100; BMI 31.7
--- NOTE | 2025-01-20 19:28 | EKG12_ITS ---
Test Reason : CP
--- NOTE | 2025-01-20 19:37 | ED.VIS.CHEST ---
HPI History of Present Illness Chief Complaint: Chest Pain Informant: patient and spouse/S.O. Onset/Context/Timing Onset: Today and Hours Activity at onset: sudden Timing: Intermittent Quality: Positive for Dull and Pain Location: Right Chest Current Severity: Gone Maximum Severity: Mild Worsened By: Nothing Relieved By: Nothing Associated Symptoms: Negative for Nausea, Vomiting, Diaphoresis, Dyspnea, Cough, Fever, Lightheadedness, Acid Reflux or Palpitations Narrative Narrative: 84-year-old male with no specific cardiac history. Denies any prior cardiac catheterization. Has a history of hypertension. Said today was at home at rest in the early afternoon he developed right sided chest discomfort he describes it as maybe a pressure. No radiation to his neck jaw or back no radiation to either arm. It resolved his second and the third episode in a fourth. There over several hours. Last episode was around 6 PM. He denies any nausea or diaphoresis denies any shortness of breath. Denies any recent exertional chest pain or exertional dyspnea. No prior history of DVT or PE. No hemoptysis. No pleuritic pain. No leg pain or swelling. No recent travel, surgery, immobilization or hospitalization. Prior Similar Symptoms: No Recent Illness/Hospitalization: No CVD Risk Factors: Positive for Hypertension PE Risk Factors: Negative for Recent Travel/Surgery, Recent Immobilization, Prior DVT or PE, Cancer or OCP + Smoking + >/=35 TAD Risk Factors: Negative for Marfan's Syndrome [facility] Medical History Leukopenia Anemia BARTOLO (obstructive sleep apnea) History of non-ST elevation myocardial infarction (NSTEMI) (08/13/19) Essential (primary) hypertension ESRD (end stage renal disease) Renal calculi Hypothyroidism Elevated troponin I level Myeloproliferative neoplasm Thrombocythemia, essential LI (acute kidney injury) (08/13/19) SARS-associated coronavirus infection (08/13/19) Seizures COVID-19 (08/13/19) Home Medications ?Medication ?Instructions ?Recorded ?Last Taken ?Type aspirin 81 mg chewable tablet 81 mg PO DAILY@1000 [employer] 09/01/19 01/20/25 Rx tamsulosin 0.4 mg capsule 0.4 mg PO DAILY bladder 10/11/20 Unknown History memantine 5 mg tablet 5 mg PO DAILY seizures 10/09/21 Unknown History amlodipine 5 mg tablet 5 mg PO BID blood pressure #180 04/01/23 Unknown Rx tabs lisinopril 20 1 tab PO BID bp #180 tabs 04/07/23 Unknown Rx mg-hydrochlorothiazide 12.5 mg tablet hydroxyurea 500 mg capsule 1,000 mg PO BID Check with primary 12/02/23 Unknown History doctor levothyroxine 150 mcg tablet 150 mcg PO DAILY thyriod 12/02/23 Unknown History phenytoin sodium extended 100 mg 300 mg PO QDAY seizures 12/02/23 Unknown History capsule carbidopa 25 mg-levodopa 100 mg 1 tab PO BID 09/06/24 Unknown History tablet Allergy/AdvReac Type Severity Reaction Status Date / Time No Known Allergies Allergy Verified 01/20/25 18:46 Family History Brother Heart disease, Onset Age: 69 AVR Surgical History Status post insertion of dialysis catheter (08/19/19) Social History Smoking Status: Never smoker alcohol intake: never substance use type: does not use caffeine: Yes Type: tea ROS ROS ED ROS Narrative Denies recent illness. Denies exertional dyspnea or exertional chest pain. Constitutional Constitutional ED: Denies chills or fever(s) Eyes Eyes: Reports none ENT ENT ED: Denies ear pain Cardiovascular Cardiovascular: Reports as per HPI and chest pain; Denies palpitations or racing heartbeat Respiratory/Chest Respiratory/Chest: Denies cough, dyspnea or dyspnea on exertion Gastrointestinal Gastrointestinal: Denies abdominal pain Genitourinary Genitourinary ED: Denies dysuria or hematuria Musculoskeletal Musculoskeletal: Denies arthralgias or back pain Integumentary Denies abscess or Abrasions Neurologic Neurologic: Denies headache(s) or paresthesias Psychiatric Psychiatric: Denies anxiety or depression Hematologic/Lymphatic Hematologic/Lymphatic: Denies easy bleeding, easy bruising or lymphadenopathy Allergic/Immunologic Allergic/Immunologic ED: Denies mouth swelling or tongue swelling EXAM Physical Exam Narrative Exam Narrative: Well-appearing 84-year-old male sitting upright in bed. Vital signs are stable afebrile. Pulse ox 100% on room air no signs hypoxia. H EENT exam pupils round react light. Moist mutes membranes. Neck nontender JVD. Lungs clear to auscultation bilaterally. Heart regular rhythm rate about 60 no murmur. Chest wall ribs nontender. No ecchymosis or bruising. No reproducible pain. Abdomen soft, nontender, nondistended normal bowel sounds without peritoneal signs. No right upper quadrant tenderness. Moving all 4 extremities. Normal rn neonatal strength. Equal symmetric radial pulses. Calves nontender without edema or cords. Normal dorsi plantarflexion. Back nontender. Neurologically he is awake alert. Answering questions following commands. No focal motor deficits. Const Vital Signs: 01/20/25 18:42 01/20/25 18:50 01/20/25 19:45 Temperature 97.4 F L Temperature Source Temporal Pulse Rate 66 Respiratory Rate 16 Respiratory Effort Normal Non-Labored Blood Pressure 161/67 H Blood Pressure Mean 98 Pulse Ox 100 Oxygen Delivery Method Room Air Room Air 01/20/25 19:48 01/20/25 20:00 Temperature Temperature Source Pulse Rate 58 L 54 L Respiratory Rate 16 18 Respiratory Effort Blood Pressure 168/72 H 154/67 H Blood Pressure Mean 104 96 Pulse Ox 100 98 Oxygen Delivery Method Room Air Room Air Heart Score History: Slightly/Non-Suspicious ECG: Normal Age: >/= 65 years Risk Factors: 1 or 2 Risk Factors Troponin: </= Normal Limit Score: 3 MDM MDM MDM Narrative Medical decision making narrative: 84-year-old male atypical right-sided chest discomfort currently resolved. Not exertional. Nonpleuritic. No risk factors for DVT or PE. No known cardiac history. The chart says prior non-STEMI he denies that. Denies ever having a heart cath. Exam benign. Undergo cardiac workup. Repeat exam patient doing well at 10:30 PM. Clinically looks well. Has had no chest pain entire time in the emergency department. His repeat exam is unchanged and unremarkable. We discussed all his test results. He is comfortable being discharged home with outpatient follow-up. He knows to return if worse. Okay to follow-up with his primary care provider or his federal district law clerk. He be discharged with chest pain uncertain etiology. History & Record Review Discussion w/independent historian: Patient and Family Additional record(s) reviewed:: Prior inpatient record, Prior outpatient record, Prior ED visit and Prior labs Lab Data Attestation: I reviewed the patient's lab results. Lab results narrative: CBC shows a white count 4. H&H 13 and 39. Platelets 443. Electrolytes show sodium 137. Potassium of 5.5. Gap at 9. BUN and creatinine of 42 and 1.27 has a history of renal insufficiency. Glucose 133 Initial troponin 28. Labs: Laboratory Results - last 24 hr 01/20/25 19:15 WBC 4.6 RBC 3.37 L Hgb 13.5 Hct 39.1 L MCV 116.0 H MCH 40.1 H MCHC 34.5 RDW Std Deviation 53.0 H RDW Coeff of Nacho 12.1 Plt Count 443 MPV 8.9 Immature Gran % (Auto) 1.900 H Neut % (Auto) 81.6 H Lymph % (Auto) 9.5 L [place] % (Auto) 4.8 Eos % (Auto) 1.1 Baso % (Auto) 1.1 H Absolute Neuts (auto) 3.8 Absolute Lymphs (auto) 0.44 L Nucleated RBC % 0 Sodium 137 Potassium 5.5 H Chloride 107 Carbon Dioxide 21.5 Anion Gap 9 BUN 42 H Creatinine 1.27 H Estim Creat Clear Calc 52.30 Est GFR (MDRD) Non-Af 56 L BUN/Creatinine Ratio 33.1 H Glucose 133 H Calcium 9.3 Troponin T High Sens 28 H Radiography Chest X-Ray - ED: 1 View, Read by ED Physician, Lungs, Mediastinum, Bony Structures, No Acute Disease, Chronic Changes and Cardiomegaly Diagnostic Testing: Clinical Impression(s) from Imaging Studies Chest X-Ray 01/20/25 19:46 IMPRESSION: Mild cardiomegaly. No evidence of acute pulmonary disease. Reading Location: [facility] Chest x-ray, portable, single view, interpreted by myself and radiology shows mild cardiomegaly. No other acute process. Chronic changes. Rhythm Strip Rhythm Strip: Sinus Rhythm Rate: 60 Ectopy: PAC(s) EKG Initial EKG: Attestation: I personally reviewed and interpreted this EKG as follows: Interpretation: Sinus Rhythm and No Acute Injury Pattern Comments: Normal sinus rhythm. Rate of 60. First-degree AV block. WA interval 290. Patient with PACs. No acute signs of SD nor ischemia Discharge Plan Triage Chief Complaint: Chest Pain ED Provider: Shamir Brito Dx/Rx/DC Orders Clinical Impression: Chest pain, Essential (primary) hypertension Instructions: ED Chest Pain, Uncertain Cause Prescriptions: No Action tamsulosin 0.4 mg capsule 0.4 mg PO DAILY memantine 5 mg tablet 5 mg PO DAILY Patient Comments: TAKE 1 TABLET BY MOUTH ONCE DAILY carbidopa-levodopa 25-100 mg tablet 1 tab PO BID phenytoin sodium extended 100 mg capsule 300 mg PO QDAY Patient Comments: TAKES 130 MG BID aspirin 81 MG tablet,chewable 81 mg PO DAILY@1000 0RF hydroxyurea 500 mg capsule 1,000 mg PO BID levothyroxine 150 mcg tablet 150 mcg PO DAILY Rx Instructions: one tab daily and 1/2 tab one day a week amlodipine 5 mg tablet 5 mg PO BID Qty: 180 3RF lisinopril-hydrochlorothiazide 20-12.5 mg tablet 1 tab PO BID Qty: 180 3RF Primary Care Provider: Nimesh Daigle Referrals: Nimesh Daigle MD [Primary Care Provider, Family Practice] - As soon as possible Activity Restrictions/Additional Instructions: Follow-up with your new primary care provider or your federal district law clerk. Your test tonight look good. And on the specific cause for your chest discomfort. Print Language: [place] Disposition Disposition: Home, Self Care
--- NOTE | 2025-01-20 19:46 | RAD_ITS ---
PROCEDURE: RAD/Chest 1 View (Portable)
[2025-01-20 19:48] LABS: Hematocrit 39.1 % (40-54); Hemoglobin 13.5 g/dL (13.0-16.5); Immature Granulocytes Count 0.090 X10^3/uL (0.0-0.0); Mean Corp Hgb Conc 34.5 g/dL (32-36); Mean Corpuscular Volume 116.0 fL (80-94); Mean Platelet Vol. 8.9 fl (6.2-12.0); NRBC Flagged by Analyzer 0 % (0-5); POSITIVE DIFFERENTIAL YES; Platelet Count 443 K/mm3 (150-450); RBC Distribution Width CV 12.1 % (11.6-14.6); RBC Distribution Width SD 53.0 fl (35.1-43.9); Red Blood Count 3.37 M/mm3 (4.6-6.2); White Blood Count 4.6 K/mm3 (4.4-11.0)
[2025-01-20 19:55] LABS: Anion Gap 9 (5-15); BUN 42 mg/dL (4-19); BUN/Creat Ratio 33.1 RATIO (10-20); Calcium,Total 9.3 mg/dL (7.6-11.0); Carbon Dioxide 21.5 mmol/L (21.0-32.0); Chloride 107 mmol/L (98-108); Estimated Creatinine Clearance 52.30 ml/min (50-250); Glucose 133 mg/dL (70-99); Potassium 5.5 mmol/L (3.3-5.1); Troponin T High Sensitivity 28 ng/L (<=22)
[2025-01-20 22:02] LABS: Troponin T High Sens 2 HR 24 ng/L (<=22)
== END 2025-01-20 22:46 | disposition home or self-care (01) ==
PROVIDERS: Emergency Provider Emergency Medicine; PCP Family Medicine; Visit Provider Emergency Medicine
DX: R07.9 Chest pain, unspecified (principal); N18.6 End stage renal disease; I12.0 Hypertensive chronic kidney disease with stage 5 chronic kidney disease or end stage renal disease; E03.9 Hypothyroidism, unspecified; I25.2 Old myocardial infarction; Z79.82 Long term (current) use of aspirin; Z79.890 Hormone replacement therapy; Z79.899 Other long term (current) drug therapy
CPT/HCPCS: 71045; 80048; 84484; 85025; 93005; 99283; A4216